=== PATIENT | female | born 1955 | race Native Hawaiian/Other Pacific Islander ===

== ENCOUNTER 2016-07-26 07:04 | Inpatient (IN) | payer OTHER ==
[2016-07-26] MEDS ORDERED: ZOFRAN ODT ONE (07:08)
[2016-07-26] MEDS ORDERED: ZOFRAN ODT PO ONE (07:12)
[2016-07-26 08:29] LABS: BUN/Creatinine Ratio 12.05; Calcium 8.3 mg/dL (8.4-10.2)
[2016-07-26] MEDS ORDERED: NITRO-BID 2% TP ONE (08:32)
[2016-07-26] MEDS ORDERED: LASIX IV ONE (08:32)
[2016-07-26 08:34] LABS: Potassium 4.7 mmol/L (3.6-5.0)
--- NOTE | 2016-07-26 08:41 | XRay Report ---
Single view chest: Compared to 06/26/16. History: Shortness of breath. Findings: Borderline cardiomegaly. Tracheas midline. No consolidation, pneumothorax or pleural effusion. Impression: No cardiopulmonary findings.
[2016-07-26 08:48] LABS: Hemoglobin 8.7 gm/dl (10.1-14.3); Mean Corpuscular HGB Conc 30 % (30-34); Mean Corpuscular Volume 82 fl (79-97); Platelet Count 319 K/mm3 (140-440); Red Blood Count 3.55 M/mm3 (3.65-5.03); Red Cell Distribution Width 16.8 % (13.2-15.2)
[2016-07-26 09:09] LABS: White Blood Count 24.5 K/mm3 (4.5-11.0)
[2016-07-26 09:10] LABS: Creatine Kinase MB 4.3 ng/mL (0.0-4.0)
[2016-07-26 09:10] LABS: Mean Corpuscular Hemoglobin 25 pg (28-32)
[2016-07-26 09:13] LABS: INR 1.19 (0.87-1.13)
[2016-07-26 09:14] LABS: Partial Thromboplastin Time 26.8 Sec. (24.2-36.6)
[2016-07-26] MEDS ORDERED: ROCEPHIN/NS 1 GM/50 ML 1 GM/50 ML BAG IV ONE (09:16)
[2016-07-26] MEDS ORDERED: VANCOMYCIN/NS 1 GM/250 ML 1 GM/250 ML BAG IV ONE (09:16)
[2016-07-26] MEDS ORDERED: NACL 0.9% 500 ML 500 ML IV ONE (09:16)
[2016-07-26 10:06] LABS: Blastocytes % (Manual) 0 %
[2016-07-26 10:07] LABS: Basophils % (Manual) 0 % (0.0-1.8); Eosinophils % (Manual) 0 % (0.0-4.3); Hypochromasia 1+
[2016-07-26 10:08] LABS: Diff Status Complete
--- NOTE | 2016-07-26 10:22 | Emergency Department Report ---
ED Shortness of Breath HPI - General Chief Complaint: Dyspnea/Respdistress Stated Complaint: BETTY Time Seen by Provider: 07/26/16 08:15 Source: patient, family Mode of arrival: Wheelchair Limitations: Language Barrier - History of Present Illness MD Complaint: shortness of breath, chest pain -: Gradual, month(s) Severity: moderate Pain Scale: 4 Quality: dull Consistency: intermittent Improves With: nothing Worsens With: nothing Known History Of: congestive heart failure, diabetes, recurrent pnemonia Context: recent URI Associated Symptoms: chest pain, cough, lower extremity pain (she has a history of a foot ulcer / now with redness and swelling and warmth in right lower extremity), nausea/vomiting Treatments Prior to Arrival: none - Related Data Home Oxygen Therapy: No Home Medications Medication Instructions Recorded Confirmed Last Taken Insulin NPH/Regular [NovoLIN 70/30] 15 unit SQ BIDDIAB 04/27/15 07/26/16 08:00 Metoprolol [Lopressor TAB] 50 mg PO BID 04/27/15 07/26/16 07/25/16 Pentoxifylline [TRENtal] 400 mg PO BID 04/27/15 07/26/16 07/25/16 Pravastatin Sodium [Pravastatin] 20 mg PO QHS 04/27/15 07/26/16 06/24/16 21:00 glipiZIDE [Glucotrol] 10 mg PO BID 04/27/15 07/26/16 07/25/16 Otc Water Pill From [facility] 07/26/16 07/25/16 Medicine Previous Rx's Medication Instructions Recorded Last Taken Type traMADol [Ultram] 50 mg PO Q6HR PRN #30 tablet 07/04/16 Unknown Rx Allergies Allergy/AdvReac Type Severity Reaction Status Date / Time codeine Allergy Hives Verified 07/26/16 07:29 morphine Allergy confusion Verified 07/26/16 07:29 Penicillins Allergy Hives Verified 07/26/16 07:29 ED Review of Systems ROS: Stated complaint: BETTY Other details as noted in HPI Constitutional: denies: chills, fever Eyes: denies: eye pain, eye discharge, vision change ENT: denies: ear pain, throat pain Respiratory: denies: cough, shortness of breath, wheezing Cardiovascular: denies: chest pain, palpitations, dyspnea on exertion, edema, syncope Endocrine: no symptoms reported Gastrointestinal: denies: abdominal pain, nausea, diarrhea Genitourinary: denies: urgency, dysuria, discharge Musculoskeletal: denies: back pain, joint swelling, arthralgia Skin: denies: rash, lesions Neurological: denies: headache, weakness, paresthesias Psychiatric: denies: anxiety, depression Hematological/Lymphatic: denies: easy bleeding, easy bruising ED Past Medical Hx - Past Medical History Hx Hypertension: Yes Hx Congestive Heart Failure: Yes Hx Diabetes: Yes Hx Asthma: Yes Hx COPD: No Additional medical history: HIGH CHOLESTEROL - Social History Smoking Status: Never Smoker Substance Use Type: None - Medications Home Medications: Home Medications Medication Instructions Recorded Confirmed Last Taken Type Insulin NPH/Regular [NovoLIN 70/30] 15 unit SQ BIDDIAB 04/27/15 07/26/16 08:00 History Metoprolol [Lopressor TAB] 50 mg PO BID 04/27/15 07/26/16 07/25/16 History Pentoxifylline [TRENtal] 400 mg PO BID 04/27/15 07/26/16 07/25/16 History Pravastatin Sodium [Pravastatin] 20 mg PO QHS 04/27/15 07/26/16 06/24/16 21:00 History glipiZIDE [Glucotrol] 10 mg PO BID 04/27/15 07/26/16 07/25/16 History traMADol [Ultram] 50 mg PO Q6HR PRN #30 tablet 07/04/16 07/26/16 Unknown Rx Otc Water Pill From [facility] 07/26/16 07/25/16 History Medicine ED Physical Exam - General Limitations: Language Barrier General appearance: alert - Head Head exam: Present: atraumatic - Eye Eye exam: Present: normal appearance - ENT ENT exam: Present: mucous membranes moist - Neck Neck exam: Present: normal inspection - Respiratory Respiratory exam: Present: rales, decreased breath sounds, prolonged expiratory. Absent: respiratory distress - Cardiovascular Cardiovascular Exam: Present: tachycardia, normal heart sounds. Absent: JVD, S3 , S4 - GI/Abdominal GI/Abdominal exam: Present: soft, normal bowel sounds. Absent: distended, tenderness, guarding, hyperactive bowel sounds, hypoactive bowel sounds - Rectal Rectal exam: Present: deferred - Extremities Exam Extremities exam: Present: normal inspection - Back Exam Back exam: Present: normal inspection - Skin Skin exam: Present: warm, rash (erythema / swelling and warmth in right lower extremity) ED Course Vital Signs 07/26/16 07/26/16 07/26/16 07:18 07:42 07:51 Temperature 99.4 F Pulse Rate 102 H 108 H 101 H Respiratory 20 18 12 Rate Blood Pressure 143/67 144/55 Blood Pressure [Left] O2 Sat by Pulse 99 100 98 Oximetry 07/26/16 07/26/16 07/26/16 07:55 07:58 08:00 Temperature 97.9 F Pulse Rate 78 78 105 H Respiratory 18 18 19 Rate Blood Pressure 149/72 Blood Pressure 156/98 [Left] O2 Sat by Pulse 99 99 98 Oximetry 07/26/16 07/26/16 07/26/16 08:11 08:21 08:31 Temperature Pulse Rate 101 H 103 H 102 H Respiratory 16 14 19 Rate Blood Pressure 149/72 149/72 149/72 Blood Pressure [Left] O2 Sat by Pulse 100 100 99 Oximetry 07/26/16 07/26/16 07/26/16 08:41 08:50 08:51 Temperature Pulse Rate 102 H 104 H 102 H Respiratory 21 22 Rate Blood Pressure 149/72 149/72 149/72 Blood Pressure [Left] O2 Sat by Pulse 98 99 Oximetry 07/26/16 07/26/16 07/26/16 09:00 09:11 09:21 Temperature Pulse Rate 100 H 98 H 99 H Respiratory 20 23 19 Rate Blood Pressure 146/125 146/125 146/125 Blood Pressure [Left] O2 Sat by Pulse 98 100 99 Oximetry - Reevaluation(s) Reevaluation #1: 07/26/16 10:18 Will admit the patient , recent admission 3 weeks ago for chest pain, still with mild increase of the troponin but she was evaluated and risk stratified here during the admission. Her presentation is diverse today , she still c/o mild chest pain and cough and diff breathing, but also noticed redness and swelling in her right lower extremity/ hx of ulcer in her foot. Will place her on sepsis protocol/ abx given here./ talked to hospitalist and agree with admission. ED Medical Decision Making - Lab Data Result diagrams: 07/26/16 08:30 07/26/16 08:04 Critical Care Time: Yes Critical care time in (mins) excluding proc time.: 35 Critical care attestation.: If time is entered above; I have spent that time in minutes in the direct care of this critically ill patient, excluding procedure time. ED Disposition Clinical Impression: Sepsis, Acute respiratory failure, Morbid obesity Disposition: OP ADMITTED IP TO THIS HOSP Is pt being admited?: Yes Does the pt Need Aspirin: No Condition: Critical Referrals: PRIMARY CARE, [Primary Care Provider] - 3-5 Days Time of Disposition: 10:24
--- NOTE | 2016-07-26 10:34 | Admit Criteria Form ---
Admission Criteria Documentation: SEPSIS and OTHER FEBRILE ILLNESS, W/O FOCAL INFECTION Clinical Indications for Admission to Inpatient Care ( Place 'X' for any and all applicable criteria): Admission is indicated for ANY ONE of the following (1)(2)(3)(4): [ ] I. Bacteremia [ ]II. Suspected or identified specific infection requiring hospitalization (eg, meningitis, endocarditis) [ ]III. Hemodynamic instability [ ]IV. Altered mental status [ ]V. Failure or unavailability of outpatient antimicrobial treatment [ ]. Hypoxemia [ ]VII. Seizures [ ]VIII. High-risk febrile neutropenia [ ]IX. Need for parenteral antibiotic in patient who is likely to abuse vascular access device (eg, injection drug user) [A](7) [ ]X. Temperature greater than 104.9 degrees F (40.5 degrees C) (oral) [ X]XI. Inpatient admission required rather than observation care because of ANY ONE of the following: []1) Specific infection identified that is too severe for outpatient treatment or observation care trial [ ]2) Metabolic disorder (eg, hypoglycemia, hyperglycemia, metabolic acidosis) that is severe or persistent [ ]3) Temperature greater than 103.1 degrees F (39.5 degrees C) ( oral) that is not responsive to observation care treatment [ ]4) IV fluid to replace significant ongoing (eg, for over 24 hours) losses (> 3 L/m2 per day) [ ]5) Supplemental oxygen or respiratory treatments for over 24 hours that is performable only in acute inpatient setting [ ]6) Parenteral nutrition regimen need that must be implemented on inpatient basis [ ]7) Strict or protective (eg, laminar flow) isolation [X ]8) Other condition, treatment or monitoring requiring inpatient admission Extended stay beyond goal length of stay may be needed for(1)(3) [ ]a) Sepsis or septic shock(22) [ ]b) Positive blood cultures [ ]c) Insufficient oral intake [ ]d) High-risk febrile neutropenia(29)(30) [ ]e) Continued fever and clinical instability [ ]f) Clinically active comorbid illness (e.g,heart failure, renal failure , diabetes) The original [facility] [employer] content created by [employer] has been revised. The portions of the content which have been revised are identified through the use of italic text or in bold, and [employer] has neither reviewed nor approved the modified material. All other unmodified content is copyright [facility]. Please see references footnoted in the original [facility] edition 2016 Admission Criteria Met: Yes
[2016-07-26 10:59] LABS: Bilirubin,Urine NEG (Negative); Blood,Urine NEG (Negative); Ketones,Urine TR mg/dL (Negative); Leukocyte Esterase,Urine NEG (Negative); Mucus,Urine FEW /HPF; Nitrite,Urine NEG (Negative); Urobilinogen,Urine < 2.0 mg/dL (<2.0)
[2016-07-26 11:00] LABS: Protein,Urine >500 mg/dL (Negative)
[2016-07-26] MEDS ORDERED: MILK OF MAGNESIA PO PRN (12:11)
[2016-07-26] MEDS ORDERED: DULCOLAX PR PRN (12:11)
[2016-07-26] MEDS ORDERED: D50W (25GM) IV PRN (12:11)
--- NOTE | 2016-07-26 12:53 | History and Physical Report ---
History of Present Illness Chief complaint: fevers History of present illness: This is a 61-year-old woman with a past medical history of hypertension and CHF EF of 45%, obesity, diabetes, who presents who has a known history of right heel chronic ulcer which if followed by Dr Ann (Podiatry), for which she gets [id number] unna boot, and has been on abx recently, her daughter states that wound was healing and about to scab over. She presents now with 3-4 days of fevers and chills, weakness, lightheadedness, cough productive of frothy thin white sputum, nausea and vomiting, worsening bipedal edema and noticed that her right lower extremities more swollen than normal, tenderness and redness of the lower half of her leg, her daughter even bought her some OTC diuretics yesterday to try to help the swelling, with minimal relief, . She also admits, intermittent dull chest pain, lasting 5-10 minutes, no radiation, no exacerbating or relieving factors, admits 2 pillow orthopnea Past History Past Medical History: diabetes, heart failure (systolic, EF 45), hypertension, renal failure (chronic, BL creatinine of 4), other (obese) Past Surgical History: Social history: no significant social history Family history: no significant family history Medications and Allergies Allergies Allergy/AdvReac Type Severity Reaction Status Date / Time codeine Allergy Hives Verified 07/26/16 07:29 morphine Allergy confusion Verified 07/26/16 07:29 Penicillins Allergy Hives Verified 07/26/16 07:29 Home Medications Medication Instructions Recorded Confirmed Last Taken Type Insulin NPH/Regular [NovoLIN 70/30] 15 unit SQ BIDDIAB 04/27/15 07/26/16 08:00 History Metoprolol [Lopressor TAB] 50 mg PO BID 04/27/15 07/26/16 07/25/16 History Pentoxifylline [TRENtal] 400 mg PO BID 04/27/15 07/26/16 07/25/16 History Pravastatin Sodium [Pravastatin] 20 mg PO QHS 04/27/15 07/26/16 06/24/16 21:00 History glipiZIDE [Glucotrol] 10 mg PO BID 04/27/15 07/26/16 07/25/16 History traMADol [Ultram] 50 mg PO Q6HR PRN #30 tablet 07/04/16 07/26/16 Unknown Rx Otc Water Pill From [facility] 07/26/16 07/25/16 History Medicine Active Meds: Active Medications Acetaminophen (Tylenol) 650 mg PO Q4H PRN PRN Reason: Pain MILD(1-3)/Fever >100.5/MACK Bisacodyl (Dulcolax) 10 mg [place] QDAY PRN PRN Reason: Constipation unrelieved by MOM Dextrose (D50w (25gm)) 50 ml IV PRN PRN PRN Reason: Hypoglycemia Heparin Sodium (Porcine) (Heparin) 5,000 unit SUB-Q Q8HR FELECIA Insulin Aspart (Novolog) 0 units SUB-Q ACHS FELECIA PRN Reason: Protocol Magnesium Hydroxide (Milk Of Magnesia) 30 ml PO Q4H PRN PRN Reason: Constipation Ondansetron HCl (Zofran) 4 mg IV Q8H PRN PRN Reason: N/V unrelieved by Reglan Review of Systems All systems: negative (as states in HPI) Exam - Physical Exam Narrative exam: General: Patient appears well in no distress, obese HEENT: MMM, EOMI cardiac: S1-S2 heard lungs: clear to auscultation, abdomen: soft, nontender, nondistended bowel sounds positive extremities: 2Plus edema in LLE, 4plus Edema in RLE with , erythema half way up the calf, R heel ulcer- will good granulation tissue Skin: no rash Neuro: no focal deficit Psych: appropriate behavior and mood, cognition intact - Constitutional Vitals: Temp Pulse Resp BP Pulse Ox 98.4 F 96 H 16 140/67 100 07/26/16 12:03 07/26/16 12:03 07/26/16 12:03 07/26/16 12:03 07/26/16 12:03 Results - Labs CBC & Chem 7: 07/26/16 08:30 07/26/16 08:04 Labs: Laboratory Last Values WBC 24.5 K/mm3 (4.5-11.0) H 07/26/16 08:30 RBC 3.55 M/mm3 (3.65-5.03) L 07/26/16 08:30 Hgb 8.7 gm/dl (10.1-14.3) L 07/26/16 08:30 Hct 29.0 % (30.3-42.9) L 07/26/16 08:30 MCV 82 fl (79-97) 07/26/16 08:30 MCH 25 pg (28-32) L 07/26/16 08:30 MCHC 30 % (30-34) 07/26/16 08:30 RDW 16.8 % (13.2-15.2) H 07/26/16 08:30 Plt Count 319 K/mm3 (140-440) 07/26/16 08:30 Add Manual Diff Complete 07/26/16 08:30 Total Counted 100 07/26/16 08:30 Seg Neuts % (Manual) 89.0 % (40.0-70.0) H 07/26/16 08:30 Band Neutrophils % 0 % 07/26/16 08:30 Lymphocytes % (Manual) 6.0 % (13.4-35.0) L 07/26/16 08:30 Reactive Lymphs % (Man) 0 % 07/26/16 08:30 Monocytes % (Manual) 5.0 % (0.0-7.3) 07/26/16 08:30 Eosinophils % (Manual) 0 % (0.0-4.3) 07/26/16 08:30 Basophils % (Manual) 0 % (0.0-1.8) 07/26/16 08:30 Metamyelocytes % 0 % 07/26/16 08:30 Myelocytes % 0 % 07/26/16 08:30 Promyelocytes % 0 % 07/26/16 08:30 Blast Cells % 0 % 07/26/16 08:30 Nucleated RBC % Not Reportable 07/26/16 08:30 Seg Neutrophils # Man 21.8 K/mm3 (1.8-7.7) H 07/26/16 08:30 Band Neutrophils # 0.0 K/mm3 07/26/16 08:30 Lymphocytes # (Manual) 1.5 K/mm3 (1.2-5.4) 07/26/16 08:30 Abs React Lymphs (Man) 0.0 K/mm3 07/26/16 08:30 Monocytes # (Manual) 1.2 K/mm3 (0.0-0.8) H 07/26/16 08:30 Eosinophils # (Manual) 0.0 K/mm3 (0.0-0.4) 07/26/16 08:30 Basophils # (Manual) 0.0 K/mm3 (0.0-0.1) 07/26/16 08:30 Metamyelocytes # 0.0 K/mm3 07/26/16 08:30 Myelocytes # 0.0 K/mm3 07/26/16 08:30 Promyelocytes # 0.0 K/mm3 07/26/16 08:30 Blast Cells # 0.0 K/mm3 07/26/16 08:30 WBC Morphology Not Reportable 07/26/16 08:30 Hypersegmented Neuts Not Reportable 07/26/16 08:30 Hyposegmented Neuts Not Reportable 07/26/16 08:30 Hypogranular Neuts Not Reportable 07/26/16 08:30 Smudge Cells Not Reportable 07/26/16 08:30 Toxic Granulation Not Reportable 07/26/16 08:30 Toxic Vacuolation Not Reportable 07/26/16 08:30 Dohle Bodies Not Reportable 07/26/16 08:30 Pelger-Huet Anomaly Not Reportable 07/26/16 08:30 Margot Rods Not Reportable 07/26/16 08:30 Platelet Estimate Appears normal 07/26/16 08:30 Clumped Platelets Not Reportable 07/26/16 08:30 Plt Clumps, EDTA Not Reportable 07/26/16 08:30 Large Platelets Not Reportable 07/26/16 08:30 Giant Platelets Not Reportable 07/26/16 08:30 Platelet Satelliting Not Reportable 07/26/16 08:30 Plt Morphology Comment Not Reportable 07/26/16 08:30 RBC Morphology Not Reportable 07/26/16 08:30 Dimorphic RBCs Not Reportable 07/26/16 08:30 Polychromasia Not Reportable 07/26/16 08:30 Hypochromasia 1+ 07/26/16 08:30 Poikilocytosis Not Reportable 07/26/16 08:30 Anisocytosis Not Reportable 07/26/16 08:30 Microcytosis Not Reportable 07/26/16 08:30 Macrocytosis Not Reportable 07/26/16 08:30 Spherocytes Not Reportable 07/26/16 08:30 Pappenheimer Bodies Not Reportable 07/26/16 08:30 Sickle Cells Not Reportable 07/26/16 08:30 Target Cells Not Reportable 07/26/16 08:30 Tear Drop Cells Not Reportable 07/26/16 08:30 Ovalocytes Not Reportable 07/26/16 08:30 Helmet Cells Not Reportable 07/26/16 08:30 [place] Bodies Not Reportable 07/26/16 08:30 [place] Rings Not Reportable 07/26/16 08:30 [place] Cells Not Reportable 07/26/16 08:30 Bite Cells Not Reportable 07/26/16 08:30 Crenated Cell Not Reportable 07/26/16 08:30 Elliptocytes Not Reportable 07/26/16 08:30 Acanthocytes (Spur) Not Reportable 07/26/16 08:30 Rouleaux Not Reportable 07/26/16 08:30 Hemoglobin C Crystals Not Reportable 07/26/16 08:30 Schistocytes Not Reportable 07/26/16 08:30 Malaria parasites Not Reportable 07/26/16 08:30 Roberto Bodies Not Reportable 07/26/16 08:30 Hem Pathologist Commnt No 07/26/16 08:30 PT 15.0 Sec. (12.2-14.9) H 07/26/16 08:48 INR 1.19 (0.87-1.13) H 07/26/16 08:48 APTT 26.8 Sec. (24.2-36.6) 07/26/16 08:48 Sodium 129 mmol/L (137-145) L 07/26/16 08:04 Potassium 4.7 mmol/L (3.6-5.0) 07/26/16 08:04 Chloride 60.0 mmol/L (98-107) L 07/26/16 08:04 Carbon Dioxide 13 mmol/L (22-30) L 07/26/16 08:04 Anion Gap 9 mmol/L 07/26/16 08:04 BUN 41 mg/dL (7-17) H 07/26/16 08:04 Creatinine 3.4 mg/dL (0.7-1.2) H 07/26/16 08:04 Estimated GFR 14 ml/min 07/26/16 08:04 BUN/Creatinine Ratio 12.05 % 07/26/16 08:04 Glucose 245 mg/dL (65-100) H 07/26/16 08:04 Lactic Acid 1.5 mmol/L (0.7-2.0) 07/26/16 10:21 Calcium 8.3 mg/dL (8.4-10.2) L 07/26/16 08:04 Magnesium 1.9 mg/dL (1.7-2.3) 07/26/16 08:48 Total Creatine Kinase 112 units/L (30-135) 07/26/16 08:48 CK-MB (CK-2) 4.3 ng/mL (0.0-4.0) H 07/26/16 08:48 CK-MB (CK-2) Rel Index 3.8 (0-4) 07/26/16 08:48 Troponin T 0.404 ng/mL (0.00-0.029) H* 07/26/16 08:04 Triglycerides 103 mg/dL (2-149) 07/26/16 08:04 Cholesterol 174 mg/dL (50-199) 07/26/16 08:04 LDL Cholesterol Direct 81 mg/dL (50-130) 07/26/16 08:04 HDL Cholesterol 73 mg/dL (40-59) H 07/26/16 08:04 Cholesterol/HDL Ratio 2.38 % 07/26/16 08:04 Urine Color Yellow (Yellow) 07/26/16 10:16 Urine Turbidity Clear (Clear) 07/26/16 10:16 Urine pH 6.0 (5.0-7.0) 07/26/16 10:16 Ur Specific [place] 1.010 (1.003-1.030) 07/26/16 10:16 Urine Protein >500 mg/dL (Negative) 07/26/16 10:16 Urine Glucose (UA) >=500 mg/dL (Negative) 07/26/16 10:16 Urine Ketones Tr mg/dL (Negative) 07/26/16 10:16 Urine Blood Neg (Negative) 07/26/16 10:16 Urine Nitrite Neg (Negative) 07/26/16 10:16 Urine Bilirubin Neg (Negative) 07/26/16 10:16 Urine Urobilinogen < 2.0 mg/dL (<2.0) 07/26/16 10:16 Ur Leukocyte Esterase Neg (Negative) 07/26/16 10:16 Urine WBC (Auto) 1.0 /HPF (0.0-6.0) 07/26/16 10:16 Urine RBC (Auto) 2.0 /HPF (0.0-6.0) 07/26/16 10:16 Urine Mucus Few /HPF 07/26/16 10:16 - Imaging and Cardiology MRI - head: image reviewed (No DVT in RLE) Assessment and Plan Assessment and plan: 61F w pmh of htn, chf, obesity, DM, Chronic R heel ulcer who presented with fever, weakness, fatigue and increase RLE swelling, pain and erythema 1. Sepsis 2/2 RLE cellulitis continue sepsis pathway, continue abx, fup blood cx 2. Anemia of CD stable, monitor 3. CKD stage 4 stable, creatinine at baseline, avoid nephrotoxic agents 4. Metabolic acidosis likely 2/2 sepsis, rx underlying cause 5. NSTEMI -CAD , she was recently admitted and seen by cardiology who had recommended only medical management (last month, she had Echo which showed regional wall motion abnormalities, but has not had recent stress test or cath) -consult cardiology team 6. Acute exacerbation of systolic CHF IV lasix, optimize meds 7. DM continue basal and bolus insulins, and SSI, FS glucose qac and hs 8. Hyponatremia likely 2/2 to fluid overload, should improve with diuresis Plan of care discussed with patient/family: Yes
[2016-07-26] MEDS ORDERED: ASPIRIN ONE (13:02)
[2016-07-26] MEDS ORDERED: ASPIRIN PO ONE (13:04)
[2016-07-26] MEDS ORDERED: LASIX IV SCH ×2 (14:00)
[2016-07-26] MEDS: HEPARIN SUB-Q SCH ×2 (16:10→21:15)
[2016-07-26] MEDS: NOVOLOG SUB-Q SCH (18:03)
--- NOTE | 2016-07-26 18:29 | Consultation ---
History of Present Illness - Reason for Consult Consult date: 07/26/16 acute renal failure, metabolic acidosis - History of Present Illness History obtained from records due to language barrier. Mrs Wade is a 61yo with CKD and chronic right heel ulcer followed by podiatry who presents to the ED with a 3-4 day history of fever, chills. In addition, patient w/ hx of nausea and vomiting. Daughter reportedly noticed that patient's legs were more edematous than usual, so she obtained OTC diuretics. Past History Past Medical History: diabetes, heart failure (systolic, EF 45), hypertension, renal failure (chronic, BL creatinine of 4), other (obese) Past Surgical History: Social history: no significant social history Family history: no significant family history Medications and Allergies Allergies Allergy/AdvReac Type Severity Reaction Status Date / Time codeine Allergy Hives Verified 07/26/16 07:29 morphine Allergy confusion Verified 07/26/16 07:29 Penicillins Allergy Hives Verified 07/26/16 07:29 Home Medications Medication Instructions Recorded Confirmed Last Taken Type Insulin NPH/Regular [NovoLIN 70/30] 15 unit SQ BIDDIAB 04/27/15 07/26/16 08:00 History Metoprolol [Lopressor TAB] 50 mg PO BID 04/27/15 07/26/16 07/25/16 History Pentoxifylline [TRENtal] 400 mg PO BID 04/27/15 07/26/16 07/25/16 History Pravastatin Sodium [Pravastatin] 20 mg PO QHS 04/27/15 07/26/16 06/24/16 21:00 History glipiZIDE [Glucotrol] 10 mg PO BID 04/27/15 07/26/16 07/25/16 History traMADol [Ultram] 50 mg PO Q6HR PRN #30 tablet 07/04/16 07/26/16 Unknown Rx Otc Water Pill From [facility] 07/26/16 07/25/16 History Medicine Active Meds: Active Medications Acetaminophen (Tylenol) 650 mg PO Q4H PRN PRN Reason: Pain MILD(1-3)/Fever >100.5/MACK Bisacodyl (Dulcolax) 10 mg [place] QDAY PRN PRN Reason: Constipation unrelieved by MOM Dextrose (D50w (25gm)) 50 ml IV PRN PRN PRN Reason: Hypoglycemia Furosemide (Lasix) 60 mg IV Q12H [facility] Last Admin: 07/26/16 16:11 Dose: 60 mg Heparin Sodium (Porcine) (Heparin) 5,000 unit SUB-Q Q8HR [facility] Last Admin: 07/26/16 16:10 Dose: 5,000 unit Ceftriaxone Sodium (Rocephin/Ns 1 Gm/50 Ml) 1 gm in 50 mls @ 100 mls/hr IV Q24H FELECIA PRN Reason: Protocol Insulin Aspart (Novolog) 0 units SUB-Q ACHS FELECIA PRN Reason: Protocol Last Admin: 07/26/16 18:03 Dose: 3 units Insulin Human Isoph/Insulin Regular (Novolin 70/30) 15 unit SUB-Q BIDDIAB [facility] Last Admin: 07/26/16 18:04 Dose: 15 unit Magnesium Hydroxide (Milk Of Magnesia) 30 ml PO Q4H PRN PRN Reason: Constipation Metoprolol Tartrate (Lopressor) 50 mg PO BID FELECIA Ondansetron HCl (Zofran) 4 mg IV Q8H PRN PRN Reason: N/V unrelieved by Reglan Pentoxifylline (Trental) 400 mg PO BID FELECIA Simvastatin (Zocor) 10 mg PO QHS FELECIA Tramadol HCl (Ultram) 50 mg PO Q6HR PRN PRN Reason: Pain Review of Systems ROS unobtainable: due to mental status (language barrier) Exam - Vital Signs Vital signs: Vital Signs Temp Pulse Resp BP Pulse Ox 99.4 F 102 H 20 143/67 99 07/26/16 07:18 07/26/16 07:18 07/26/16 07:18 07/26/16 07:18 07/26/16 07:18 - General Appearance General appearance: well-developed, well-nourished, obese, other (breathing comfortably on room air) EENT: ATNC Respiratory: Clear to Ascultation Heart: regular, S1S2 Gastrointestinal: Present: normal, obese. Absent: tenderness, distended Integumentary: other (right heel ulcer) Musculoskeletal: Present: other (chronic venous stasis changes; trace edema) Psychiatric: cooperative Results - Lab Results 07/27/16 05:08 07/27/16 05:08 Most recent lab results Calcium 8.3 mg/dL (8.4-10.2) L 07/26/16 08:04 Magnesium 1.9 mg/dL (1.7-2.3) 07/26/16 08:48 Assessment and Plan Assessment: * Nonoliguric acute kidney injury secondary to prerenal azotemia/volume depletion (N/V, taking OTC diuretics) vs ATN on chronic kidney disease SCr 4.8mg/dL - Jun 2016 * Sepsis * Diabetic right heel ulcer * Metabolic acidosis * Nausea/vomiting * Hyponatremia * Dyspnea - ?secondary to respiratory compensation for metabolic acidosis; CXR clear * Type II DM * Hypertension * Hx of elevated troponin - TTE (Jun 2016): preserved LVEF; regional wall motion abnormalities at the apex, suggesting the presence of underlying coronary artery disease. Plan: * Will hold diuresis for now - patient does not appear to be in fluid overload * Start bicarb gtt in light of metabolic acidosis * Abx per primary team * Avoid potential nephrotoxins * Dose medications for renal function * Strict I/O - eubanks catheter in place
[2016-07-26] MEDS ORDERED: SODIUM BICARBONATE 150 MEQ in D5W 1,000 ML IV SCH (20:00)
[2016-07-26] MEDS: TYLENOL PO PRN (21:14)
[2016-07-26] MEDS: ZOCOR PO SCH (21:15)
[2016-07-26] MEDS: TRENTAL PO SCH (21:15)
[2016-07-26] MEDS ORDERED: NON-FORMULARY (Pravastatin Sodium [Pravastatin] 20 MG) PO SCH (22:00)
[2016-07-27] MEDS: LOPRESSOR PO SCH ×3 (00:09→23:00)
[2016-07-27] MEDS: NOVOLOG SUB-Q SCH ×5 (00:10→23:25)
[2016-07-27 05:34] LABS: Basophils % (Auto) 0.2 % (0.0-1.8); Eosinophils % (Auto) 0.4 % (0.0-4.3); Hemoglobin 7.2 gm/dl (10.1-14.3); Mean Corpuscular HGB Conc 31 % (30-34); Mean Corpuscular Volume 80 fl (79-97); Platelet Count 251 K/mm3 (140-440); Red Blood Count 2.85 M/mm3 (3.65-5.03); Red Cell Distribution Width 16.4 % (13.2-15.2); White Blood Count 15.8 K/mm3 (4.5-11.0)
[2016-07-27] MEDS: TYLENOL PO PRN (05:38)
[2016-07-27] MEDS: HEPARIN SUB-Q SCH ×3 (05:39→23:26)
[2016-07-27] MEDS: ZOFRAN IV PRN ×3 (05:45→23:34)
[2016-07-27 05:48] LABS: BUN/Creatinine Ratio 13.24; Potassium 3.9 mmol/L (3.6-5.0)
[2016-07-27 05:52] LABS: Mean Corpuscular Hemoglobin 25 pg (28-32)
--- NOTE | 2016-07-27 08:56 | Progress Note ---
Assessment and Plan Assessment: * Nonoliguric acute kidney injury secondary to prerenal azotemia/volume depletion (N/V, taking OTC diuretics) vs ATN on chronic kidney disease SCr 4.8mg/dL - Jun 2016 * Sepsis * Diabetic right heel ulcer * Metabolic acidosis - improved * Nausea/vomiting * Hyponatremia - improved, contacted lab Na 133 today * Dyspnea likely secondary to respiratory compensation for metabolic acidosis; CXR clear * Type II DM * Hypertension * Hx of elevated troponin - TTE (Jun 2016): preserved LVEF; regional wall motion abnormalities at the apex, suggesting the presence of underlying coronary artery disease. Plan: * Recommend continue IVF * Hold diuretics * Follow up on pending lytes * Abx per primary team - WBC trending down * Avoid potential nephrotoxins * Dose medications for renal function * Strict I/O - eubanks catheter in place * Son at bedside (not present yesterday) - identifies patient's building energy consultant as Dr. Hamilton and is scheduled to see him in the office next week; have discussed with hospitalist who will change consult. Subjective Date of service: 07/27/16 Interval history: Patient c/o nausea, dry heaves. She denies SOB or difficulty breathing. Objective - Vital Signs Vital signs: Vital Signs - 12hr 07/26/16 07/26/16 07/27/16 21:14 22:00 00:00 Temperature 98.3 F Pulse Rate Pulse Rate [ 80 Left Radial] Respiratory 18 18 Rate Respiratory 18 Rate [Chest] Blood Pressure Blood Pressure 103/56 [Left Arm] O2 Sat by Pulse Oximetry 07/27/16 07/27/16 00:09 08:00 Temperature 98.2 F Pulse Rate 83 Pulse Rate [ 80 Left Radial] Respiratory 18 Rate Respiratory Rate [Chest] Blood Pressure 101/54 Blood Pressure 106/58 [Left Arm] O2 Sat by Pulse 98 Oximetry - General Appearance General appearance: well-developed, well-nourished, obese EENT: ATNC Respiratory: Present: Clear to Ascultation Cardiology: regular, S1S2 Gastrointestinal: normal, no tenderness, no distended, obese Integumentary: other (right heel ulcer) Musculoskeletal: other (no edema) Psychiatric: cooperative - Lab 07/27/16 05:08 07/27/16 05:08 Most recent lab results Calcium 8.0 mg/dL (8.4-10.2) L 07/27/16 05:08 Magnesium 1.9 mg/dL (1.7-2.3) 07/26/16 08:48
--- NOTE | 2016-07-27 09:26 | Consultation ---
History of Present Illness Consult date: 07/27/16 Consult reason: elevated troponin History of present illness: This patient's a 61-year-old woman with multiple medical problems including diabetes, hypertension, peripheral vascular disease, chronic renal failure, chronic anemia and a nonhealing right foot ulcer. She is admitted to the hospital at this time with chest pain, shortness of breath and nausea and vomiting. A chest x-ray done in the emergency room reports no acute cardiopulmonary process. EKG not available on chart for review. Cardiac enzymes are normal with a CK-MB of 4.3 and CK-MB ratio of 3.8. Troponin level of 0.40 but this is also in the setting of chronic renal failure with a current creatinine of 3.4. Of note, patient was admitted to this hospital less than a month ago with similar symptoms. An echocardiogram done at that time revealed an overall preserved left ventricle systolic function, but there are regional wall motion abnormalities at the apex, suggesting the presence of underlying coronary artery disease. Patient was considered not a candidate for aggressive invasive cardiac evaluation due to multiple comorbidities including renal failure and severe anemia. Medical therapy recommended for underlying coronary artery disease. Past History Past Medical History: diabetes, heart failure (systolic, EF 45), hypertension, renal failure (chronic, BL creatinine of 4), other (obese) Past Surgical History: Social history: no significant social history Family history: no significant family history Medications and Allergies Allergies Allergy/AdvReac Type Severity Reaction Status Date / Time codeine Allergy Hives Verified 07/26/16 07:29 morphine Allergy confusion Verified 07/26/16 07:29 Penicillins Allergy Hives Verified 07/26/16 07:29 Home Medications Medication Instructions Recorded Confirmed Last Taken Type Insulin NPH/Regular [NovoLIN 70/30] 15 unit SQ BIDDIAB 04/27/15 07/26/16 08:00 History Metoprolol [Lopressor TAB] 50 mg PO BID 04/27/15 07/26/16 07/25/16 History Pentoxifylline [TRENtal] 400 mg PO BID 04/27/15 07/26/16 07/25/16 History Pravastatin Sodium [Pravastatin] 20 mg PO QHS 04/27/15 07/26/16 06/24/16 21:00 History glipiZIDE [Glucotrol] 10 mg PO BID 12/01/0207/26/16 07/25/16 History traMADol [Ultram] 50 mg PO Q6HR PRN #30 tablet 07/04/16 07/26/16 Unknown Rx Otc Water Pill From [facility] 07/26/16 07/25/16 History Medicine Active Meds: Active Medications Acetaminophen (Tylenol) 650 mg PO Q4H PRN PRN Reason: Pain MILD(1-3)/Fever >100.5/MACK Last Admin: 07/26/16 21:14 Dose: 650 mg Bisacodyl (Dulcolax) 10 mg LA QDAY PRN PRN Reason: Constipation unrelieved by MOM Dextrose (D50w (25gm)) 50 ml IV PRN PRN PRN Reason: Hypoglycemia Heparin Sodium (Porcine) (Heparin) 5,000 unit SUB-Q Q8HR [facility] Last Admin: 07/27/16 05:39 Dose: 5,000 unit Ceftriaxone Sodium (Rocephin/Ns 1 Gm/50 Ml) 1 gm in 50 mls @ 100 mls/hr IV Q24H [facility] PRN Reason: Protocol Sodium Bicarbonate 150 meq/ (Dextrose) 1,150 mls @ 75 mls/hr IV DIRECT [facility] Insulin Aspart (Novolog) 0 units SUB-Q ACHS [facility] PRN Reason: Protocol Last Admin: 07/27/16 07:37 Dose: Not Given Insulin Human Isoph/Insulin Regular (Novolin 70/30) 15 unit SUB-Q BIDDIAB [facility] Last Admin: 07/26/16 18:04 Dose: 15 unit Magnesium Hydroxide (Milk Of Magnesia) 30 ml PO Q4H PRN PRN Reason: Constipation Metoprolol Tartrate (Lopressor) 50 mg PO BID [facility] Last Admin: 07/27/16 00:09 Dose: Not Given Ondansetron HCl (Zofran) 4 mg IV Q8H PRN PRN Reason: N/V unrelieved by Reglan Last Admin: 07/27/16 05:45 Dose: 4 mg Pentoxifylline (Trental) 400 mg PO BID [facility] Last Admin: 07/26/16 21:15 Dose: 400 mg Simvastatin (Zocor) 10 mg PO QHS [facility] Last Admin: 07/26/16 21:15 Dose: 10 mg Tramadol HCl (Ultram) 50 mg PO Q6HR PRN PRN Reason: Pain Physical Examination Vital Signs Temp Pulse Resp BP Pulse Ox 99.4 F 102 H 20 143/67 99 07/26/16 07:18 07/26/16 07:18 07/26/16 07:18 07/26/16 07:18 07/26/16 07:18 General appearance: no acute distress Cardiac: Positive: Reg Rate and Rhythm Results 07/27/16 05:08 07/27/16 05:08 CBC 07/27/16 Range/Units 05:08 WBC 15.8 H (4.5-11.0) K/mm3 RBC 2.85 L (3.65-5.03) M/mm3 Hgb 7.2 L (10.1-14.3) gm/dl Hct 23.0 L D (30.3-42.9) % Plt Count 251 (140-440) K/mm3 Lymph # 1.6 (1.2-5.4) K/mm3 [place] # 1.4 H (0.0-0.8) K/mm3 Eos # 0.1 (0.0-0.4) K/mm3 Baso # 0.0 (0.0-0.1) K/mm3 Comprehensive Metabolic Panel 07/27/16 Range/Units 05:08 Carbon Dioxide 23 D (22-30) mmol/L BUN 49 H (7-17) mg/dL Creatinine 3.7 H (0.7-1.2) mg/dL Glucose 74 (65-100) mg/dL Calcium 8.0 L (8.4-10.2) mg/dL Assessment and Plan Chronic renal failure Volume depletion Nausea vomiting Hyponatremia Chest pain Patient is considered not be a candidate for aggressive and invasive cardiac evaluation due to multiple comorbidities including renal failure and anemia. Severe Anemia Diabetes Hypertension Hyperlipidemia Diabetic Rt heel ulcer Elevated troponin, chronic An echocardiogram done 06/2016 reports a preserved left ventricle systolic function, but there are regional wall motion abnormalities at the apex, suggesting the presence of underlying coronary artery disease. Recommend: Medical therapy for underlying coronary disease.
[2016-07-27] MEDS: TRENTAL PO SCH ×2 (10:47→23:26)
[2016-07-27] MEDS: ROCEPHIN/NS 1 GM/50 ML 1 GM/50 ML BAG IV SCH (11:02)
--- NOTE | 2016-07-27 16:21 | Progress Note ---
Assessment and Plan Assessment and plan: 61F w pmh of htn, chf, obesity, DM, Chronic R heel ulcer who presented with fever, weakness, fatigue, generalized edema and increase RLE swelling, pain and erythema 1. Sepsis 2/2 RLE cellulitis continue sepsis pathway, continue abx, fup blood cx Obtain MR of RLE to r/o OM continue wound care, fup with Dr Ann-podiatry upon dc 2. Anemia of CD if continues to trend downwards, will consider transfuion 3. CKD stage 4 stable, creatinine at baseline, avoid nephrotoxic agents Nephrology input appreciated 4. Metabolic acidosis likely 2/2 sepsis and CKD continue bicarb drip 5. NSTEMI -CAD , she was recently admitted and seen by cardiology who had recommended only medical management (last month, she had Echo which showed regional wall motion abnormalities, but has not had recent stress test or cath) -cardiology input appreciated, continue medical management 6. Acute exacerbation of systolic CHF fluid overload has resolved after geting diuretics, diuretics have now been dc, optimize meds 7. DM continue basal and bolus insulins, and SSI, FS glucose qac and hs 8. Hyponatremia likely 2/2 to fluid overload, has improved with diuresis History Interval history: SOB is resolves, and LE edema is most resolved. RLE is no longer red or swollen , but she is c/o of a deep pain that appears to be under her heel ulcer Hospitalist Physical - Physical exam Narrative exam: General: Patient appears well in no distress, obese HEENT: MMM, EOMI cardiac: S1-S2 heard lungs: clear to auscultation, abdomen: soft, nontender, nondistended bowel sounds positive extremities: Erythema and edema or RLE is mostly resolve, R heel ulcer- will good granulation tissue, no odor or drainage LLE has 1 plus edema- interval improvement Skin: no rash Neuro: no focal deficit Psych: appropriate behavior and mood, cognition intact - Constitutional Vitals: Temp Pulse Resp BP Pulse Ox 98.8 F 90 18 130/62 98 07/27/16 16:00 07/27/16 16:00 07/27/16 16:00 07/27/16 16:00 07/27/16 08:00 General appearance: Present: no acute distress Results - Labs CBC & Chem 7: 07/28/16 08:12 07/27/16 05:08 Labs: Laboratory Last Values WBC 15.8 K/mm3 (4.5-11.0) H 07/27/16 05:08 RBC 2.85 M/mm3 (3.65-5.03) L 07/27/16 05:08 Hgb 7.2 gm/dl (10.1-14.3) L 07/27/16 05:08 Hct 23.0 % (30.3-42.9) L D 07/27/16 05:08 MCV 80 fl (79-97) 07/27/16 05:08 MCH 25 pg (28-32) L 07/27/16 05:08 MCHC 31 % (30-34) 07/27/16 05:08 RDW 16.4 % (13.2-15.2) H 07/27/16 05:08 Plt Count 251 K/mm3 (140-440) 07/27/16 05:08 Lymph % (Auto) 10.4 % (13.4-35.0) L 07/27/16 05:08 [place] % (Auto) 9.0 % (0.0-7.3) H 07/27/16 05:08 Eos % (Auto) 0.4 % (0.0-4.3) 07/27/16 05:08 Baso % (Auto) 0.2 % (0.0-1.8) 07/27/16 05:08 Lymph # 1.6 K/mm3 (1.2-5.4) 07/27/16 05:08 [place] # 1.4 K/mm3 (0.0-0.8) H 07/27/16 05:08 Eos # 0.1 K/mm3 (0.0-0.4) 07/27/16 05:08 Baso # 0.0 K/mm3 (0.0-0.1) 07/27/16 05:08 Add Manual Diff Complete 07/26/16 08:30 Total Counted 100 07/26/16 08:30 Seg Neutrophils % 80.0 % (40.0-70.0) H 07/27/16 05:08 Seg Neuts % (Manual) 89.0 % (40.0-70.0) H 07/26/16 08:30 Band Neutrophils % 0 % 07/26/16 08:30 Lymphocytes % (Manual) 6.0 % (13.4-35.0) L 07/26/16 08:30 Reactive Lymphs % (Man) 0 % 07/26/16 08:30 Monocytes % (Manual) 5.0 % (0.0-7.3) 07/26/16 08:30 Eosinophils % (Manual) 0 % (0.0-4.3) 07/26/16 08:30 Basophils % (Manual) 0 % (0.0-1.8) 07/26/16 08:30 Metamyelocytes % 0 % 07/26/16 08:30 Myelocytes % 0 % 07/26/16 08:30 Promyelocytes % 0 % 07/26/16 08:30 Blast Cells % 0 % 07/26/16 08:30 Nucleated RBC % Not Reportable 07/26/16 08:30 Seg Neutrophils # 12.7 K/mm3 (1.8-7.7) H 07/27/16 05:08 Seg Neutrophils # Man 21.8 K/mm3 (1.8-7.7) H 07/26/16 08:30 Band Neutrophils # 0.0 K/mm3 07/26/16 08:30 Lymphocytes # (Manual) 1.5 K/mm3 (1.2-5.4) 07/26/16 08:30 Abs React Lymphs (Man) 0.0 K/mm3 07/26/16 08:30 Monocytes # (Manual) 1.2 K/mm3 (0.0-0.8) H 07/26/16 08:30 Eosinophils # (Manual) 0.0 K/mm3 (0.0-0.4) 07/26/16 08:30 Basophils # (Manual) 0.0 K/mm3 (0.0-0.1) 07/26/16 08:30 Metamyelocytes # 0.0 K/mm3 07/26/16 08:30 Myelocytes # 0.0 K/mm3 07/26/16 08:30 Promyelocytes # 0.0 K/mm3 07/26/16 08:30 Blast Cells # 0.0 K/mm3 07/26/16 08:30 WBC Morphology Not Reportable 07/26/16 08:30 Hypersegmented Neuts Not Reportable 07/26/16 08:30 Hyposegmented Neuts Not Reportable 07/26/16 08:30 Hypogranular Neuts Not Reportable 07/26/16 08:30 Smudge Cells Not Reportable 07/26/16 08:30 Toxic Granulation Not Reportable 07/26/16 08:30 Toxic Vacuolation Not Reportable 07/26/16 08:30 Dohle Bodies Not Reportable 07/26/16 08:30 Pelger-Huet Anomaly Not Reportable 07/26/16 08:30 Margot Rods Not Reportable 07/26/16 08:30 Platelet Estimate Appears normal 07/26/16 08:30 Clumped Platelets Not Reportable 07/26/16 08:30 Plt Clumps, EDTA Not Reportable 07/26/16 08:30 Large Platelets Not Reportable 07/26/16 08:30 Giant Platelets Not Reportable 07/26/16 08:30 Platelet Satelliting Not Reportable 07/26/16 08:30 Plt Morphology Comment Not Reportable 07/26/16 08:30 RBC Morphology Not Reportable 07/26/16 08:30 Dimorphic RBCs Not Reportable 07/26/16 08:30 Polychromasia Not Reportable 07/26/16 08:30 Hypochromasia 1+ 07/26/16 08:30 Poikilocytosis Not Reportable 07/26/16 08:30 Anisocytosis Not Reportable 07/26/16 08:30 Microcytosis Not Reportable 07/26/16 08:30 Macrocytosis Not Reportable 07/26/16 08:30 Spherocytes Not Reportable 07/26/16 08:30 Pappenheimer Bodies Not Reportable 07/26/16 08:30 Sickle Cells Not Reportable 07/26/16 08:30 Target Cells Not Reportable 07/26/16 08:30 Tear Drop Cells Not Reportable 07/26/16 08:30 Ovalocytes Not Reportable 07/26/16 08:30 Helmet Cells Not Reportable 07/26/16 08:[address] [place] Bodies Not Reportable 07/26/16 08:30 [place] Rings Not Reportable 07/26/16 08:30 Jose Cells Not Reportable 07/26/16 08:30 Bite Cells Not Reportable 07/26/16 08:30 Crenated Cell Not Reportable 07/26/16 08:30 Elliptocytes Not Reportable 07/26/16 08:30 Acanthocytes (Spur) Not Reportable 07/26/16 08:30 Rouleaux Not Reportable 07/26/16 08:30 Hemoglobin C Crystals Not Reportable 07/26/16 08:30 Schistocytes Not Reportable 07/26/16 08:30 Malaria parasites Not Reportable 07/26/16 08:30 ESR > 140.0 mm/Hr (0-20) 07/26/16 15:30 Roberto Bodies Not Reportable 07/26/16 08:30 Hem Pathologist Commnt No 07/26/16 08:30 PT 15.0 Sec. (12.2-14.9) H 07/26/16 08:48 INR 1.19 (0.87-1.13) H 07/26/16 08:48 APTT 26.8 Sec. (24.2-36.6) 07/26/16 08:48 Sodium 129 mmol/L (137-145) L 07/26/16 08:04 Potassium 4.7 mmol/L (3.6-5.0) 07/26/16 08:04 Chloride 60.0 mmol/L (98-107) L 07/26/16 08:04 Carbon Dioxide 23 mmol/L (22-30) D 07/27/16 05:08 Anion Gap 16 mmol/L 07/27/16 05:08 BUN 49 mg/dL (7-17) H 07/27/16 05:08 Creatinine 3.7 mg/dL (0.7-1.2) H 07/27/16 05:08 Estimated GFR 12 ml/min 07/27/16 05:08 BUN/Creatinine Ratio 13.24 % 07/27/16 05:08 Glucose 74 mg/dL (65-100) 07/27/16 05:08 POC Glucose 125 (70-105) H 07/27/16 12:08 Lactic Acid 1.6 mmol/L (0.7-2.0) 07/26/16 13:25 Calcium 8.0 mg/dL (8.4-10.2) L 07/27/16 05:08 Magnesium 1.9 mg/dL (1.7-2.3) 07/26/16 08:48 Total Creatine Kinase 112 units/L (30-135) 07/26/16 08:48 CK-MB (CK-2) 4.3 ng/mL (0.0-4.0) H 07/26/16 08:48 CK-MB (CK-2) Rel Index 3.8 (0-4) 07/26/16 08:48 Troponin T 0.404 ng/mL (0.00-0.029) H* 07/26/16 08:04 C-Reactive Protein 28.60 mg/dL (0.00-1.30) H 07/26/16 08:48 Triglycerides 103 mg/dL (2-149) 07/26/16 08:04 Cholesterol 174 mg/dL (50-199) 07/26/16 08:04 LDL Cholesterol Direct 81 mg/dL (50-130) 07/26/16 08:04 HDL Cholesterol 73 mg/dL (40-59) H 07/26/16 08:04 Cholesterol/HDL Ratio 2.38 % 07/26/16 08:04 Urine Color Yellow (Yellow) 07/26/16 10:16 Urine Turbidity Clear (Clear) 07/26/16 10:16 Urine pH 6.0 (5.0-7.0) 07/26/16 10:16 Ur Specific [place] 1.010 (1.003-1.030) 07/26/16 10:16 Urine Protein >500 mg/dL (Negative) 07/26/16 10:16 Urine Glucose (UA) >=500 mg/dL (Negative) 07/26/16 10:16 Urine Ketones Tr mg/dL (Negative) 07/26/16 10:16 Urine Blood Neg (Negative) 07/26/16 10:16 Urine Nitrite Neg (Negative) 07/26/16 10:16 Urine Bilirubin Neg (Negative) 07/26/16 10:16 Urine Urobilinogen < 2.0 mg/dL (<2.0) 07/26/16 10:16 Ur Leukocyte Esterase Neg (Negative) 07/26/16 10:16 Urine WBC (Auto) 1.0 /HPF (0.0-6.0) 07/26/16 10:16 Urine RBC (Auto) 2.0 /HPF (0.0-6.0) 07/26/16 10:16 Urine Mucus Few /HPF 07/26/16 10:16
--- NOTE | 2016-07-27 17:33 | Consultation ---
History of Present Illness - Reason for Consult Consult date: 07/27/16 acute renal failure, chronic renal failure, hyponatremia, metabolic acidosis - History of Present Illness This is a 61 year old female with PMH of chronic kidney disease stage 5, hypertension, diabetes mellitus type 2 insulin dependent, and congestive heart failure (EF 45%) who presented to [facility] with complaints of fever, chills, nausea , vomiting, fatigue, chest pain, productive cough with white sputum, bilateral lower extremity edema, chronic right heel ulcer (followed by Dr Ann- Decorating Inspector), and pain to right lower extremity. Apparently, patient's daughter purchased OTC diuretics for management of bilateral lower extremity edema prior to admission. On admission, SCr level was 3.4, increased to 3.7 today. Patient was seen by our nephrology service ([facility]) during previous hospitalization at [facility] last month, labs from 06/26 to 07/04 ranged from 3.4 to 4.8 , with highest SCr level of 5.4 on 06/29/16. Renal ultrasound last month showed no hydronephrosis. Patient had Castillo Catheter placed during this admission. Patient speaks Nigerien only, son at bedside who assisted with history of recent events leading to hospitalization. We were consulted to evaluate this patient who has acute on chronic kidney disease versus progression of chronic kidney disease. Past History Past Medical History: diabetes, heart failure (systolic, EF 45), hypertension, renal failure (chronic, BL creatinine of 4), other (obese) Past Surgical History: Social history: no significant social history Family history: no significant family history Medications and Allergies Allergies Allergy/AdvReac Type Severity Reaction Status Date / Time codeine Allergy Hives Verified 07/26/16 07:29 morphine Allergy confusion Verified 07/26/16 07:29 Penicillins Allergy Hives Verified 07/26/16 07:29 Home Medications Medication Instructions Recorded Confirmed Last Taken Type Insulin NPH/Regular [NovoLIN 70/30] 15 unit SQ BIDDIAB 04/27/15 07/26/16 08:00 History Metoprolol [Lopressor TAB] 50 mg PO BID 04/27/15 07/26/16 07/25/16 History Pentoxifylline [TRENtal] 400 mg PO BID 04/27/15 07/26/16 07/25/16 History Pravastatin Sodium [Pravastatin] 20 mg PO QHS 04/27/15 07/26/16 06/24/16 21:00 History glipiZIDE [Glucotrol] 10 mg PO BID 04/27/15 07/26/16 07/25/16 History traMADol [Ultram] 50 mg PO Q6HR PRN #30 tablet 07/04/16 07/26/16 Unknown Rx Otc Water Pill From [facility] 07/26/16 07/25/16 History Medicine Active Meds: Active Medications Acetaminophen (Tylenol) 650 mg PO Q4H PRN PRN Reason: Pain MILD(1-3)/Fever >100.5/MACK Last Admin: 07/26/16 21:14 Dose: 650 mg Bisacodyl (Dulcolax) 10 mg DC QDAY PRN PRN Reason: Constipation unrelieved by MOM Dextrose (D50w (25gm)) 50 ml IV PRN PRN PRN Reason: Hypoglycemia Heparin Sodium (Porcine) (Heparin) 5,000 unit SUB-Q Q8HR [facility] Last Admin: 07/27/16 16:04 Dose: 5,000 unit Ceftriaxone Sodium (Rocephin/Ns 1 Gm/50 Ml) 1 gm in 50 mls @ 100 mls/hr IV Q24H [facility] PRN Reason: Protocol Last Admin: 07/27/16 11:02 Dose: 100 mls/hr Sodium Bicarbonate 150 meq/ (Dextrose) 1,150 mls @ 75 mls/hr IV DIRECT [facility] Insulin Aspart (Novolog) 0 units SUB-Q ACHS [facility] PRN Reason: Protocol Last Admin: 07/27/16 14:57 Dose: Not Given Insulin Human Isoph/Insulin Regular (Novolin 70/30) 15 unit SUB-Q BIDDIAB [facility] Last Admin: 07/27/16 10:21 Dose: Not Given Magnesium Hydroxide (Milk Of Magnesia) 30 ml PO Q4H PRN PRN Reason: Constipation Metoprolol Tartrate (Lopressor) 50 mg PO BID [facility] Last Admin: 07/27/16 10:47 Dose: Not Given Ondansetron HCl (Zofran) 4 mg IV Q8H PRN PRN Reason: N/V unrelieved by Reglan Last Admin: 07/27/16 15:59 Dose: 4 mg Pentoxifylline (Trental) 400 mg PO BID [facility] Last Admin: 07/27/16 10:47 Dose: Not Given Simvastatin (Zocor) 10 mg PO QHS [facility] Last Admin: 07/26/16 21:15 Dose: 10 mg Tramadol HCl (Ultram) 50 mg PO Q6HR PRN PRN Reason: Pain Review of Systems Constitutional: fever, chills, fatigue, weakness Ears, nose, mouth and throat: no epistaxis Cardiovascular: chest pain, leg edema, no shortness of breath, no dyspnea on exertion Respiratory: cough with sputum, dyspnea on exertion, no hemoptysis, no shortness of breath Gastrointestinal: nausea, vomiting, no abdominal pain, no diarrhea, no constipation, no hematemesis, no melena Genitourinary Female: no dysuria, no hematuria Musculoskeletal: muscle weakness Integumentary: wounds (chronic right heel ulcer) Neurological: no seizures Psychiatric: no anxiety, no depression Endocrine: fatigue (PATIENT SPEAKS CROATIAN ONLY, SON AT BEDSIDE ASSISTED WITH HISTORY OF RECENT EVENTS) Exam - Vital Signs Vital signs: Vital Signs Temp Pulse Resp BP Pulse Ox 99.4 F 102 H 20 143/67 99 07/26/16 07:18 07/26/16 07:18 07/26/16 07:18 07/26/16 07:18 07/26/16 07:18 - General Appearance General appearance: well-nourished (no acute distress, denies shortness of breath) EENT: ATNC Neck: Present: neck supple Respiratory: Other (Lung sounds decreased bilaterally, unlabored) Heart: regular, S1S2 Gastrointestinal: Present: normoactive bowel sounds. Absent: tenderness Integumentary: other (chronic right heel ulcer) Neurologic: alert and oriented x3 (speaks russian only) Musculoskeletal: Present: other (1+ edema to both lower extremities) Psychiatric: cooperative Results - Lab Results 07/27/16 05:08 07/27/16 05:08 Most recent lab results Calcium 8.0 mg/dL (8.4-10.2) L 07/27/16 05:08 Magnesium 1.9 mg/dL (1.7-2.3) 07/26/16 08:48 Assessment and Plan - Patient Problems (1) Acute kidney injury superimposed on CKD Current Visit: Yes Status: Acute Plan to address problem: Renal function reviewed, SCr level increased to 3.7 today, yesterday's SCr level was 3.4 Review of labs from last month at [facility] showed SCr level from 06/26 to 07/04 ranged from 3.4 to 4.8, with highest SCr level of 5.4 on 06/29/16 I contacted lab who reported serum sodium level was 133, potassium 3.9, and chloride 98- were showing pending on lab report today) Hyponatremia- improving Discontinue D5W + 150 mEq sodium bicarbonate infusion at 75 ml/hr Start 0.9% NS infusion at 50 ml/hr Blood cultures showed no growth at 24 hours Currently on Rocephin 1 g IVPB daily Chest X Ray showed no cardiopulmonary findings Renal ultrasound last month showed no hydronephrosis Renally dose medications Obtain daily weight Strict intake and output Intake= 10 ml Output= 910 ml (Net= -900 ml) Renal plan discussed with Dr Dixon No acute indication for initiation of CASE LOADER OPERATOR today, but will continue to monitor Continue supportive therapy (2) Metabolic acidosis Current Visit: No Status: Acute Plan to address problem: Currently on D5W+ 150 mEq sodium bicarbonate infusion at 75 ml/hr- Non-Anion Gap Metabolic Acidosis -Resolved Discontinue sodium bicarbonate drip (3) Anemia Current Visit: No Status: Acute Qualifiers: Anemia type: A Iron deficiency anemia type: I Vitamin B12 deficiency anemia type: V Folate deficiency anemia type: F Bone marrow failure anemia type: B Hemolytic anemia type: H Other causes of anemia: O Plan to address problem: Obtain iron studies Hgb level 7.2 today, if Hgb level continues to trend down, possible need for blood transfusion Monitor CBC daily
[2016-07-27] MEDS ORDERED: NACL 0.9% 1000 ML 1,000 ML IV SCH (18:00)
[2016-07-27] MEDS: ZOCOR PO SCH (23:26)
[2016-07-28] MEDS: ZOFRAN IV PRN ×3 (02:47→16:31)
[2016-07-28] MEDS ORDERED: TORADOL IV ONE (06:31)
[2016-07-28] MEDS: HEPARIN SUB-Q SCH ×3 (06:35→22:47)
--- NOTE | 2016-07-28 07:40 | Vascular Lab Report ---
Right Lower Extremity Venous Duplex Study: Reason for Exam: Shortness of breath. Comments on the Right: All veins visualized are freely compressible without evidence of internal echogenicity. Flow is spontaneous and phasic throughout. No evidence of acute or chronic thrombus is seen in any of the vessels visualized. Comments on the Left: A limited duplex study was done of the proximal veins of the left lower extremity. All veins visualized are freely compressible without evidence of internal echogenicity. Flow is spontaneous and phasic throughout. No evidence of acute or chronic thrombus is seen in any of the vessels visualized. Impression: No evidence of acute or chronic deep venous thrombosis in the right lower extremity.
[2016-07-28 08:41] LABS: Hematocrit 22.1 % (30.3-42.9); Mean Corpuscular HGB Conc 32 % (30-34); Mean Corpuscular Volume 80 fl (79-97); Platelet Count 252 K/mm3 (140-440); Red Blood Count 2.77 M/mm3 (3.65-5.03); Red Cell Distribution Width 16.5 % (13.2-15.2); White Blood Count 11.1 K/mm3 (4.5-11.0)
[2016-07-28 08:43] LABS: Mean Corpuscular Hemoglobin 25 pg (28-32)
[2016-07-28] MEDS: NOVOLOG SUB-Q SCH ×4 (09:19→22:51)
[2016-07-28] MEDS: ROCEPHIN/NS 1 GM/50 ML 1 GM/50 ML BAG IV SCH (09:25)
[2016-07-28] MEDS: TRENTAL PO SCH ×2 (09:25→22:41)
[2016-07-28] MEDS: LOPRESSOR PO SCH ×2 (09:26→22:41)
[2016-07-28] MEDS ORDERED: NACL 0.9% 500 ML 500 ML IV ONE (09:42)
--- NOTE | 2016-07-28 11:01 | Progress Note ---
Assessment and Plan Chronic renal failure Volume depletion Nausea vomiting Hyponatremia Chest pain Patient is considered not be a candidate for aggressive and invasive cardiac evaluation due to multiple comorbidities including renal failure and anemia. Severe Anemia Diabetes Hypertension Hyperlipidemia Diabetic Rt heel ulcer Elevated troponin, chronic An echocardiogram done 06/2016 reports a preserved left ventricle systolic function, but there are regional wall motion abnormalities at the apex, suggesting the presence of underlying coronary artery disease. Recommend: Medical therapy for underlying coronary disease. Subjective Date of service: 07/28/16 Interval history: Patient non-Niuean speaking. She is resting in bed comfortably. No family members at bedside. Objective Vital Signs Temp Pulse Pulse Resp BP BP Pulse Ox 07/28/16 08:00 98.3 F 90 18 122/60 99 07/28/16 06:41 26 H 07/28/16 00:20 98.5 F 97 H 18 119/56 100 07/27/16 23:00 57 L 104/56 07/27/16 16:00 98.8 F 90 18 130/62 07/27/16 10:47 106/58 - Physical Examination General: No Apparent Distress HEENT: Positive: PERRL Cardiac: Positive: Reg Rate and Rhythm Lungs: Positive: Decreased Breath Sounds - Labs and Meds CBC 07/28/16 Range/Units 08:12 WBC 11.1 H (4.5-11.0) K/mm3 RBC 2.77 L (3.65-5.03) M/mm3 Hgb 7.0 L (10.1-14.3) gm/dl Hct 22.1 L (30.3-42.9) % Plt Count 252 (140-440) K/mm3
--- NOTE | 2016-07-28 11:01 | Progress Note ---
Assessment and Plan Assessment and plan: 1. Sepsis 2/2 RLE cellulitis. F/U MRI continue sepsis pathway, continue abx, fup blood cx 2. Anemia of CKD hemoglobin 7.0. T & C and transfuse 1 unit 3. CKD stage 4 stable, creatinine at baseline, avoid nephrotoxic agents. Nephrology following 4. Metabolic acidosis likely 2/2 sepsis, rx underlying cause 5. NSTEMI -CAD She was recently admitted and seen by cardiology who had recommended only medical management (last month, she had Echo which showed regional wall motion abnormalities, but has not had recent stress test or cath) -consult cardiology team 6. Acute exacerbation of systolic CHF IV lasix, optimize meds 7. DM continue basal and bolus insulins, and SSI, FS glucose qac and hs 8. Hyponatremia likely 2/2 to fluid overload, should improve with diuresis 9. N/V. Check KUB History Interval history: This is a 61 year old female with PMH of chronic kidney disease stage 5, hypertension, diabetes mellitus type 2 insulin dependent, and congestive heart failure (EF 45%) who presented to [facility] with complaints of fever, chills, nausea , vomiting, fatigue, chest pain, productive cough with white sputum, bilateral lower extremity edema, chronic right heel ulcer (followed by Dr Ann- [employer]), and pain to right lower extremity. This morning patient complains of nausea and vomiting. No hematemesis. Hospitalist Physical - Constitutional Vitals: Temp Pulse Resp BP Pulse Ox 98.3 F 90 18 122/60 99 07/28/16 08:00 07/28/16 08:00 07/28/16 08:00 07/28/16 08:00 07/28/16 08:00 General appearance: Present: no acute distress - EENT Eyes: Present: PERRL, EOM intact ENT: hearing intact, clear oral mucosa, dentition normal - Neck Neck: Present: supple, normal ROM - Respiratory Respiratory effort: normal Respiratory: bilateral: CTA - Cardiovascular Rhythm: regular Heart Sounds: Present: S1 & S2. Absent: gallop, rub - Extremities Extremities: no ischemia, No edema, Full ROM - Abdominal General gastrointestinal: soft, non-tender, non-distended, normal bowel sounds - Integumentary Integumentary: Present: clear, warm, dry - Neurologic Neurologic: CNII-XII intact, moves all extremities Results - Labs CBC & Chem 7: 07/28/16 08:12 07/27/16 05:08 Labs: Laboratory Last Values WBC 11.1 K/mm3 (4.5-11.0) H 07/28/16 08:12 RBC 2.77 M/mm3 (3.65-5.03) L 07/28/16 08:12 Hgb 7.0 gm/dl (10.1-14.3) L 07/28/16 08:12 Hct 22.1 % (30.3-42.9) L 07/28/16 08:12 MCV 80 fl (79-97) 07/28/16 08:12 MCH 25 pg (28-32) L 07/28/16 08:12 MCHC 32 % (30-34) 07/28/16 08:12 RDW 16.5 % (13.2-15.2) H 07/28/16 08:12 Plt Count 252 K/mm3 (140-440) 07/28/16 08:12 Lymph % (Auto) 10.4 % (13.4-35.0) L 07/27/16 05:08 [place] % (Auto) 9.0 % (0.0-7.3) H 07/27/16 05:08 Eos % (Auto) 0.4 % (0.0-4.3) 07/27/16 05:08 Baso % (Auto) 0.2 % (0.0-1.8) 07/27/16 05:08 Lymph # 1.6 K/mm3 (1.2-5.4) 07/27/16 05:08 [place] # 1.4 K/mm3 (0.0-0.8) H 07/27/16 05:08 Eos # 0.1 K/mm3 (0.0-0.4) 07/27/16 05:08 Baso # 0.0 K/mm3 (0.0-0.1) 07/27/16 05:08 Add Manual Diff Complete 07/26/16 08:30 Total Counted 100 07/26/16 08:30 Seg Neutrophils % 80.0 % (40.0-70.0) H 07/27/16 05:08 Seg Neuts % (Manual) 89.0 % (40.0-70.0) H 07/26/16 08:30 Band Neutrophils % 0 % 07/26/16 08:30 Lymphocytes % (Manual) 6.0 % (13.4-35.0) L 07/26/16 08:30 Reactive Lymphs % (Man) 0 % 07/26/16 08:30 Monocytes % (Manual) 5.0 % (0.0-7.3) 07/26/16 08:30 Eosinophils % (Manual) 0 % (0.0-4.3) 07/26/16 08:30 Basophils % (Manual) 0 % (0.0-1.8) 07/26/16 08:30 Metamyelocytes % 0 % 07/26/16 08:30 Myelocytes % 0 % 07/26/16 08:30 Promyelocytes % 0 % 07/26/16 08:30 Blast Cells % 0 % 07/26/16 08:30 Nucleated RBC % Not Reportable 07/26/16 08:30 Seg Neutrophils # 12.7 K/mm3 (1.8-7.7) H 07/27/16 05:08 Seg Neutrophils # Man 21.8 K/mm3 (1.8-7.7) H 07/26/16 08:30 Band Neutrophils # 0.0 K/mm3 07/26/16 08:30 Lymphocytes # (Manual) 1.5 K/mm3 (1.2-5.4) 07/26/16 08:30 Abs React Lymphs (Man) 0.0 K/mm3 07/26/16 08:30 Monocytes # (Manual) 1.2 K/mm3 (0.0-0.8) H 07/26/16 08:30 Eosinophils # (Manual) 0.0 K/mm3 (0.0-0.4) 07/26/16 08:30 Basophils # (Manual) 0.0 K/mm3 (0.0-0.1) 07/26/16 08:30 Metamyelocytes # 0.0 K/mm3 07/26/16 08:30 Myelocytes # 0.0 K/mm3 07/26/16 08:30 Promyelocytes # 0.0 K/mm3 07/26/16 08:30 Blast Cells # 0.0 K/mm3 07/26/16 08:30 WBC Morphology Not Reportable 07/26/16 08:30 Hypersegmented Neuts Not Reportable 07/26/16 08:30 Hyposegmented Neuts Not Reportable 07/26/16 08:30 Hypogranular Neuts Not Reportable 07/26/16 08:30 Smudge Cells Not Reportable 07/26/16 08:30 Toxic Granulation Not Reportable 07/26/16 08:30 Toxic Vacuolation Not Reportable 07/26/16 08:30 Dohle Bodies Not Reportable 07/26/16 08:30 Pelger-Huet Anomaly Not Reportable 07/26/16 08:30 Margot Rods Not Reportable 07/26/16 08:30 Platelet Estimate Appears normal 07/26/16 08:30 Clumped Platelets Not Reportable 07/26/16 08:30 Plt Clumps, EDTA Not Reportable 07/26/16 08:30 Large Platelets Not Reportable 07/26/16 08:30 Giant Platelets Not Reportable 07/26/16 08:30 Platelet Satelliting Not Reportable 07/26/16 08:30 Plt Morphology Comment Not Reportable 07/26/16 08:30 RBC Morphology Not Reportable 07/26/16 08:30 Dimorphic RBCs Not Reportable 07/26/16 08:30 Polychromasia Not Reportable 07/26/16 08:30 Hypochromasia 1+ 07/26/16 08:30 Poikilocytosis Not Reportable 07/26/16 08:30 Anisocytosis Not Reportable 07/26/16 08:30 Microcytosis Not Reportable 07/26/16 08:30 Macrocytosis Not Reportable 07/26/16 08:30 Spherocytes Not Reportable 07/26/16 08:30 Pappenheimer Bodies Not Reportable 07/26/16 08:30 Sickle Cells Not Reportable 07/26/16 08:30 Target Cells Not Reportable 07/26/16 08:30 Tear Drop Cells Not Reportable 07/26/16 08:30 Ovalocytes Not Reportable 07/26/16 08:30 Helmet Cells Not Reportable 07/26/16 08:30 [place] Bodies Not Reportable 07/26/16 08:30 [place] Rings Not Reportable 07/26/16 08:30 [place] Cells Not Reportable 07/26/16 08:30 Bite Cells Not Reportable 07/26/16 08:30 Crenated Cell Not Reportable 07/26/16 08:30 Elliptocytes Not Reportable 07/26/16 08:30 Acanthocytes (Spur) Not Reportable 07/26/16 08:30 Rouleaux Not Reportable 07/26/16 08:30 Hemoglobin C Crystals Not Reportable 07/26/16 08:30 Schistocytes Not Reportable 07/26/16 08:30 Malaria parasites Not Reportable 07/26/16 08:30 ESR > 140.0 mm/Hr (0-20) 07/26/16 15:30 Roberto Bodies Not Reportable 07/26/16 08:30 Hem Pathologist Commnt No 07/26/16 08:30 PT 15.0 Sec. (12.2-14.9) H 07/26/16 08:48 INR 1.19 (0.87-1.13) H 07/26/16 08:48 APTT 26.8 Sec. (24.2-36.6) 07/26/16 08:48 Sodium 129 mmol/L (137-145) L 07/26/16 08:04 Potassium 4.7 mmol/L (3.6-5.0) 07/26/16 08:04 Chloride 60.0 mmol/L (98-107) L 07/26/16 08:04 Carbon Dioxide 23 mmol/L (22-30) D 07/27/16 05:08 Anion Gap 16 mmol/L 07/27/16 05:08 BUN 49 mg/dL (7-17) H 07/27/16 05:08 Creatinine 3.7 mg/dL (0.7-1.2) H 07/27/16 05:08 Estimated GFR 12 ml/min 07/27/16 05:08 BUN/Creatinine Ratio 13.24 % 07/27/16 05:08 Glucose 74 mg/dL (65-100) 07/27/16 05:08 POC Glucose 183 (70-105) H 07/28/16 05:17 Lactic Acid 1.6 mmol/L (0.7-2.0) 07/26/16 13:25 Calcium 8.0 mg/dL (8.4-10.2) L 07/27/16 05:08 Magnesium 1.9 mg/dL (1.7-2.3) 07/26/16 08:48 Total Creatine Kinase 112 units/L (30-135) 07/26/16 08:48 CK-MB (CK-2) 4.3 ng/mL (0.0-4.0) H 07/26/16 08:48 CK-MB (CK-2) Rel Index 3.8 (0-4) 07/26/16 08:48 Troponin T 0.404 ng/mL (0.00-0.029) H* 07/26/16 08:04 C-Reactive Protein 28.60 mg/dL (0.00-1.30) H 07/26/16 08:48 Triglycerides 103 mg/dL (2-149) 07/26/16 08:04 Cholesterol 174 mg/dL (50-199) 07/26/16 08:04 LDL Cholesterol Direct 81 mg/dL (50-130) 07/26/16 08:04 HDL Cholesterol 73 mg/dL (40-59) H 07/26/16 08:04 Cholesterol/HDL Ratio 2.38 % 07/26/16 08:04 Urine Color Yellow (Yellow) 07/26/16 10:16 Urine Turbidity Clear (Clear) 07/26/16 10:16 Urine pH 6.0 (5.0-7.0) 07/26/16 10:16 Ur Specific [place] 1.010 (1.003-1.030) 07/26/16 10:16 Urine Protein >500 mg/dL (Negative) 07/26/16 10:16 Urine Glucose (UA) >=500 mg/dL (Negative) 07/26/16 10:16 Urine Ketones Tr mg/dL (Negative) 07/26/16 10:16 Urine Blood Neg (Negative) 07/26/16 10:16 Urine Nitrite Neg (Negative) 07/26/16 10:16 Urine Bilirubin Neg (Negative) 07/26/16 10:16 Urine Urobilinogen < 2.0 mg/dL (<2.0) 07/26/16 10:16 Ur Leukocyte Esterase Neg (Negative) 07/26/16 10:16 Urine WBC (Auto) 1.0 /HPF (0.0-6.0) 07/26/16 10:16 Urine RBC (Auto) 2.0 /HPF (0.0-6.0) 07/26/16 10:16 Urine Mucus Few /HPF 07/26/16 10:16
--- NOTE | 2016-07-28 12:07 | XRay Report ---
Flat abdomen: History: Nausea and vomiting. Findings: No bowel distention or wall thickening. Stool in colon. No radiopaque calculus or abnormal calcification. Impression: Essentially negative abdomen.
[2016-07-28 14:16] LABS: BUN/Creatinine Ratio 11.02; Calcium 7.7 mg/dL (8.4-10.2); Chloride 92.6 mmol/L (98-107); Total Iron Binding Capacity 109.2 mcg/dL (250-450)
--- NOTE | 2016-07-28 15:35 | Progress Note ---
Assessment and Plan (1) Acute kidney injury superimposed on CKD Current Visit: Yes Status: Acute Plan to address problem: will d/c IVF, good UOP Hyponatremia- fluid restriction Chest X Ray showed no cardiopulmonary findings Renal ultrasound last month showed no hydronephrosis Renally dose medications Obtain daily weight Strict intake and output (2) Metabolic acidosis Current Visit: No Status: Acute Plan to address problem: resolved (3) Anemia Current Visit: No Status: Acute Qualifiers: Anemia type: A Iron deficiency anemia type: I Vitamin B12 deficiency anemia type: V Folate deficiency anemia type: F Bone marrow failure anemia type: B Hemolytic anemia type: H Other causes of anemia: O Plan to address problem: 1 unit prbc scheduled Subjective Date of service: 07/28/16 Principal diagnosis: severe renal failure Interval history: patient was in MRI Objective - Vital Signs Vital signs: Vital Signs - 12hr 07/28/16 07/28/16 06:41 08:00 Temperature 98.3 F Pulse Rate [ 90 Left Radial] Respiratory 26 H 18 Rate Blood Pressure 122/60 [Left Arm] O2 Sat by Pulse 99 Oximetry - Lab 07/28/16 08:12 07/28/16 08:12 Most recent lab results Calcium 7.7 mg/dL (8.4-10.2) L 07/28/16 08:12 Phosphorus 4.0 mg/dL (2.5-4.5) 07/28/16 08:12 Magnesium 1.9 mg/dL (1.7-2.3) 07/26/16 08:48
[2016-07-28] MEDS: ULTRAM PO PRN (16:31)
[2016-07-28] MEDS ORDERED: APRESOLINE IV ONE (18:08)
--- NOTE | 2016-07-28 22:38 | Consultation ---
HISTORY OF PRESENT ILLNESS: The patient was visited at bedside. The patient appeared to be resting well. The patient is a non-Filipino speaking female, 61 years old . Anne-Marie Bahena is there to translate. The patient's chart reviewed, labs noted, foot evaluated. Examination revealed dry tissue, but no open wound present. Wound appeared to be significantly improved since her last stent in the hospital and being seen in my office/Dr. Chuy Ann several weeks ago. We will recommend wound care, wound with improvement, and we will see the patient on an outpatient basis once discharged. Recommend wound care. JOB# [id number] FRANKIE/CHIDI
[2016-07-28] MEDS: ZOCOR PO SCH (22:41)
[2016-07-29] MEDS: ZOFRAN IV PRN (05:16)
[2016-07-29] MEDS: HEPARIN SUB-Q SCH ×3 (05:16→22:30)
[2016-07-29 07:14] LABS: Hematocrit 28.2 % (30.3-42.9); Hemoglobin 8.8 gm/dl (10.1-14.3); Mean Corpuscular HGB Conc 31 % (30-34); Mean Corpuscular Volume 82 fl (79-97); Platelet Count 269 K/mm3 (140-440); Red Blood Count 3.44 M/mm3 (3.65-5.03); Red Cell Distribution Width 16.3 % (13.2-15.2); White Blood Count 11.7 K/mm3 (4.5-11.0)
[2016-07-29] MEDS: NOVOLOG SUB-Q SCH ×4 (07:30→22:30)
[2016-07-29 07:39] LABS: BUN/Creatinine Ratio 11.94; Chloride 92.5 mmol/L (98-107); Potassium 4.2 mmol/L (3.6-5.0)
[2016-07-29 08:02] LABS: Mean Corpuscular Hemoglobin 26 pg (28-32)
--- NOTE | 2016-07-29 09:57 | Magnetic Resonance Report ---
MRI RIGHT LOWER EXTREMITY WITHOUT CONTRAST: 07/28/16 CLINICAL: Infection and osteomyelitis. COMPARISON:09/18/09 MRI ankle. TECHNIQUE: Sagittal, coronal and axial T1, coronal and axial T2 fat sat, sagittal STIR and sagittal, coronal and axial postcontrast T1 fat sat sequences on a 1.5 [place] magnet. The examination was targeted for the lower leg not the ankle. FINDINGS: Most of the tibia and fibula are included on the exam and have normal signal with no marrow edema or erosive lesions. The proximal aspect of both the tibia and fibula at the knee are not included. There is diffuse soft tissue edema which is both superficial and deep. Uniform atrophy of the muscles of the lower leg with fatty infiltration. There is a small ankle joint effusion. Mild marrow edema of the talus. The calcaneus is fragmented and edematous. Fluid at the calcaneus extends to the plantar surface of the foot. 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 Cellulitis of the hindfoot. No changes of osteomyelitis involving the tibia or fibula. Extensive muscle atrophy of the lower leg and diffuse soft tissue edema of the lower lid.
--- NOTE | 2016-07-29 10:01 | Progress Note ---
Assessment and Plan 1. Persistent nausea and vomiting 2. Chronic kidney disease stage IV 3. Elevated serum troponin levels probably related to chronic renal disease 4. Type II diabetes mellitus 5. Right diabetic foot ulcer 6. Essential hypertension 7. Hyperlipidemia 8. Abnormal echocardiogram with wall motion abnormalities consistent with coronary artery disease. Plan. Patient is currently stable will continue present management Lexiscan MPI would be done to rule out ischemic coronary artery disease. Subjective Date of service: 07/29/16 Principal diagnosis: severe renal failure Interval history: Patient with persistent nausea and vomiting denies any chest pain. Objective Vital Signs Temp Pulse Pulse Resp BP BP Pulse Ox 07/29/16 00:00 99.0 F 88 20 141/66 100 07/28/16 22:41 99 H 158/72 07/28/16 20:30 98.4 F 88 20 135/68 100 07/28/16 20:28 87 20 07/28/16 20:15 98.2 F 87 20 116/56 100 07/28/16 19:45 98 F 86 18 133/65 07/28/16 18:36 80 185/84 07/28/16 17:02 97.8 F 80 18 184/78 07/28/16 15:48 99.3 F 79 18 111/72 - Physical Examination General: Appears Well, No Apparent Distress, Other (obese) HEENT: Positive: PERRL Neck: Positive: neck supple. Negative: JVD/HJR Cardiac: Positive: Regular Rate, S1/S2, PMI, Laterally Displaced Lungs: Positive: clear to auscultation Abdomen: Positive: Unremarkable, Soft Skin: Positive: Clear - Labs and Meds CBC 07/29/16 Range/Units 06:04 WBC 11.7 H (4.5-11.0) K/mm3 RBC 3.44 L (3.65-5.03) M/mm3 Hgb 8.8 L (10.1-14.3) gm/dl Hct 28.2 L D (30.3-42.9) % Plt Count 269 (140-440) K/mm3 Comprehensive Metabolic Panel 07/28/16 07/29/16 Range/Units 08:12 06:04 Sodium 132 L 132 L (137-145) mmol/L Potassium 4.0 4.2 (3.6-5.0) mmol/L Chloride 92.6 L 92.5 L (98-107) mmol/L Carbon Dioxide 24 24 (22-30) mmol/L BUN 43 H 43 H (7-17) mg/dL Creatinine 3.9 H 3.6 H (0.7-1.2) mg/dL Glucose 198 H 106 H (65-100) mg/dL Calcium 7.7 L 8.0 L (8.4-10.2) mg/dL - Telemetry EKG Rhythm: Sinus Rhythm
--- NOTE | 2016-07-29 10:08 | Progress Note ---
Assessment and Plan Assessment and plan: 1. Sepsis 2/2 RLE cellulitis. F/U MRI continue sepsis pathway, continue abx, fup blood cx 2. Anemia of CKD s/p 1 unit PRBCs. H&H stable. 3. CKD stage 4 stable, creatinine at baseline, avoid nephrotoxic agents. Nephrology following 4. Metabolic acidosis likely 2/2 sepsis, resolving 5. NSTEMI -CAD She was recently admitted and seen by cardiology who had recommended only medical management (last month, she had Echo which showed regional wall motion abnormalities, but has not had recent stress test or cath) -consult cardiology team 6. Acute exacerbation of systolic CHF IV lasix, optimize meds 7. DM continue basal and bolus insulins, and SSI, FS glucose qac and hs 8. Hyponatremia likely 2/2 to fluid overload, should improve with diuresis 9. N/V. KUB negative. Etiology may be secondary to #1. ? Diabetic gastroparesis. We will start Reglan. 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 This morning patient complains of nausea and vomiting. Son is at the bedside. Hospitalist Physical - Constitutional Vitals: Temp Pulse Resp BP Pulse Ox 99.0 F 88 20 141/66 100 07/29/16 00:00 07/29/16 00:00 07/29/16 00:00 07/29/16 00:00 07/29/16 00:00 General appearance: Present: no acute distress - EENT Eyes: Present: PERRL, EOM intact ENT: hearing intact, clear oral mucosa, dentition normal - Neck Neck: Present: supple, normal ROM - Respiratory Respiratory effort: normal Respiratory: bilateral: CTA - Cardiovascular Rhythm: regular Heart Sounds: Present: S1 & S2. Absent: gallop, rub - Extremities Extremities: no ischemia, No edema, Full ROM - Abdominal General gastrointestinal: soft, non-tender, non-distended, normal bowel sounds - Integumentary Integumentary: Present: clear, warm, dry - Neurologic Neurologic: CNII-XII intact, moves all extremities Results - Labs CBC & Chem 7: 07/29/16 06:04 07/29/16 06:04 Labs: Laboratory Last Values WBC 11.7 K/mm3 (4.5-11.0) H 07/29/16 06:04 RBC 3.44 M/mm3 (3.65-5.03) L 07/29/16 06:04 Hgb 8.8 gm/dl (10.1-14.3) L 07/29/16 06:04 Hct 28.2 % (30.3-42.9) L D 07/29/16 06:04 MCV 82 fl (79-97) 07/29/16 06:04 MCH 26 pg (28-32) L 07/29/16 06:04 MCHC 31 % (30-34) 07/29/16 06:04 RDW 16.3 % (13.2-15.2) H 07/29/16 06:04 Plt Count 269 K/mm3 (140-440) 07/29/16 06:04 Lymph % (Auto) 10.4 % (13.4-35.0) L 07/27/16 05:08 Morgan % (Auto) 9.0 % (0.0-7.3) H 07/27/16 05:08 Eos % (Auto) 0.4 % (0.0-4.3) 07/27/16 05:08 Baso % (Auto) 0.2 % (0.0-1.8) 07/27/16 05:08 Lymph # 1.6 K/mm3 (1.2-5.4) 07/27/16 05:08 Morgan # 1.4 K/mm3 (0.0-0.8) H 07/27/16 05:08 Eos # 0.1 K/mm3 (0.0-0.4) 07/27/16 05:08 Baso # 0.0 K/mm3 (0.0-0.1) 07/27/16 05:08 Add Manual Diff Complete 07/26/16 08:30 Total Counted 100 07/26/16 08:30 Seg Neutrophils % 80.0 % (40.0-70.0) H 07/27/16 05:08 Seg Neuts % (Manual) 89.0 % (40.0-70.0) H 07/26/16 08:30 Band Neutrophils % 0 % 07/26/16 08:30 Lymphocytes % (Manual) 6.0 % (13.4-35.0) L 07/26/16 08:30 Reactive Lymphs % (Man) 0 % 07/26/16 08:30 Monocytes % (Manual) 5.0 % (0.0-7.3) 07/26/16 08:30 Eosinophils % (Manual) 0 % (0.0-4.3) 07/26/16 08:30 Basophils % (Manual) 0 % (0.0-1.8) 07/26/16 08:30 Metamyelocytes % 0 % 07/26/16 08:30 Myelocytes % 0 % 07/26/16 08:30 Promyelocytes % 0 % 07/26/16 08:30 Blast Cells % 0 % 07/26/16 08:30 Nucleated RBC % Not Reportable 07/26/16 08:30 Seg Neutrophils # 12.7 K/mm3 (1.8-7.7) H 07/27/16 05:08 Seg Neutrophils # Man 21.8 K/mm3 (1.8-7.7) H 07/26/16 08:30 Band Neutrophils # 0.0 K/mm3 07/26/16 08:30 Lymphocytes # (Manual) 1.5 K/mm3 (1.2-5.4) 07/26/16 08:30 Abs React Lymphs (Man) 0.0 K/mm3 07/26/16 08:30 Monocytes # (Manual) 1.2 K/mm3 (0.0-0.8) H 07/26/16 08:30 Eosinophils # (Manual) 0.0 K/mm3 (0.0-0.4) 07/26/16 08:30 Basophils # (Manual) 0.0 K/mm3 (0.0-0.1) 07/26/16 08:30 Metamyelocytes # 0.0 K/mm3 07/26/16 08:30 Myelocytes # 0.0 K/mm3 07/26/16 08:30 Promyelocytes # 0.0 K/mm3 07/26/16 08:30 Blast Cells # 0.0 K/mm3 07/26/16 08:30 WBC Morphology Not Reportable 07/26/16 08:30 Hypersegmented Neuts Not Reportable 07/26/16 08:30 Hyposegmented Neuts Not Reportable 07/26/16 08:30 Hypogranular Neuts Not Reportable 07/26/16 08:30 Smudge Cells Not Reportable 07/26/16 08:30 Toxic Granulation Not Reportable 07/26/16 08:30 Toxic Vacuolation Not Reportable 07/26/16 08:30 Dohle Bodies Not Reportable 07/26/16 08:30 Pelger-Huet Anomaly Not Reportable 07/26/16 08:30 Margot Rods Not Reportable 07/26/16 08:30 Platelet Estimate Appears normal 07/26/16 08:30 Clumped Platelets Not Reportable 07/26/16 08:30 Plt Clumps, EDTA Not Reportable 07/26/16 08:30 Large Platelets Not Reportable 07/26/16 08:30 Giant Platelets Not Reportable 07/26/16 08:30 Platelet Satelliting Not Reportable 07/26/16 08:30 Plt Morphology Comment Not Reportable 07/26/16 08:30 RBC Morphology Not Reportable 07/26/16 08:30 Dimorphic RBCs Not Reportable 07/26/16 08:30 Polychromasia Not Reportable 07/26/16 08:30 Hypochromasia 1+ 07/26/16 08:30 Poikilocytosis Not Reportable 07/26/16 08:30 Anisocytosis Not Reportable 07/26/16 08:30 Microcytosis Not Reportable 07/26/16 08:30 Macrocytosis Not Reportable 07/26/16 08:30 Spherocytes Not Reportable 07/26/16 08:30 Pappenheimer Bodies Not Reportable 07/26/16 08:30 Sickle Cells Not Reportable 07/26/16 08:30 Target Cells Not Reportable 07/26/16 08:30 Tear Drop Cells Not Reportable 07/26/16 08:30 Ovalocytes Not Reportable 07/26/16 08:30 Helmet Cells Not Reportable 07/26/16 08:30 [place] Bodies Not Reportable 07/26/16 08:30 [place] Rings Not Reportable 07/26/16 08:30 Jose Cells Not Reportable 07/26/16 08:30 Bite Cells Not Reportable 07/26/16 08:30 Crenated Cell Not Reportable 07/26/16 08:30 Elliptocytes Not Reportable 07/26/16 08:30 Acanthocytes (Spur) Not Reportable 07/26/16 08:30 Rouleaux Not Reportable 07/26/16 08:30 Hemoglobin C Crystals Not Reportable 07/26/16 08:30 Schistocytes Not Reportable 07/26/16 08:30 Malaria parasites Not Reportable 07/26/16 08:30 ESR > 140.0 mm/Hr (0-20) 07/26/16 15:30 Roberto Bodies Not Reportable 07/26/16 08:30 Hem Pathologist Commnt No 07/26/16 08:30 PT 15.0 Sec. (12.2-14.9) H 07/26/16 08:48 INR 1.19 (0.87-1.13) H 07/26/16 08:48 APTT 26.8 Sec. (24.2-36.6) 07/26/16 08:48 Sodium 132 mmol/L (137-145) L 07/29/16 06:04 Potassium 4.2 mmol/L (3.6-5.0) 07/29/16 06:04 Chloride 92.5 mmol/L (98-107) L 07/29/16 06:04 Carbon Dioxide 24 mmol/L (22-30) 07/29/16 06:04 Anion Gap 20 mmol/L 07/29/16 06:04 BUN 43 mg/dL (7-17) H 07/29/16 06:04 Creatinine 3.6 mg/dL (0.7-1.2) H 07/29/16 06:04 Estimated GFR 13 ml/min 07/29/16 06:04 BUN/Creatinine Ratio 11.94 % 07/29/16 06:04 Glucose 106 mg/dL (65-100) H 07/29/16 06:04 POC Glucose 118 (70-105) H 07/29/16 05:59 Lactic Acid 1.6 mmol/L (0.7-2.0) 07/26/16 13:25 Calcium 8.0 mg/dL (8.4-10.2) L 07/29/16 06:04 Phosphorus 4.0 mg/dL (2.5-4.5) 07/28/16 08:12 Magnesium 1.9 mg/dL (1.7-2.3) 07/26/16 08:48 Iron 19 ug/dL (37-170) L 07/28/16 08:12 TIBC 109.20 mcg/dL (250-450) L 07/28/16 08:12 Transferrin 78 mg/dl (192-382) L 07/28/16 08:12 Ferritin 1606.0 ng/mL (13.0-400.0) H 07/28/16 08:12 Total Creatine Kinase 112 units/L (30-135) 07/26/16 08:48 CK-MB (CK-2) 4.3 ng/mL (0.0-4.0) H 07/26/16 08:48 CK-MB (CK-2) Rel Index 3.8 (0-4) 07/26/16 08:48 Troponin T 0.404 ng/mL (0.00-0.029) H* 07/26/16 08:04 C-Reactive Protein 28.60 mg/dL (0.00-1.30) H 07/26/16 08:48 Triglycerides 103 mg/dL (2-149) 07/26/16 08:04 Cholesterol 174 mg/dL (50-199) 07/26/16 08:04 LDL Cholesterol Direct 81 mg/dL (50-130) 07/26/16 08:04 HDL Cholesterol 73 mg/dL (40-59) H 07/26/16 08:04 Cholesterol/HDL Ratio 2.38 % 07/26/16 08:04 Urine Color Yellow (Yellow) 07/26/16 10:16 Urine Turbidity Clear (Clear) 07/26/16 10:16 Urine pH 6.0 (5.0-7.0) 07/26/16 10:16 Ur Specific [place] 1.010 (1.003-1.030) 07/26/16 10:16 Urine Protein >500 mg/dL (Negative) 07/26/16 10:16 Urine Glucose (UA) >=500 mg/dL (Negative) 07/26/16 10:16 Urine Ketones Tr mg/dL (Negative) 07/26/16 10:16 Urine Blood Neg (Negative) 07/26/16 10:16 Urine Nitrite Neg (Negative) 07/26/16 10:16 Urine Bilirubin Neg (Negative) 07/26/16 10:16 Urine Urobilinogen < 2.0 mg/dL (<2.0) 07/26/16 10:16 Ur Leukocyte Esterase Neg (Negative) 07/26/16 10:16 Urine WBC (Auto) 1.0 /HPF (0.0-6.0) 07/26/16 10:16 Urine RBC (Auto) 2.0 /HPF (0.0-6.0) 07/26/16 10:16 Urine Mucus Few /HPF 07/26/16 10:16 Blood Type O POSITIVE 07/28/16 12:36 Antibody Screen Negative 07/28/16 12:36 Crossmatch See Detail 07/28/16 12:36
[2016-07-29] MEDS: ROCEPHIN/NS 1 GM/50 ML 1 GM/50 ML BAG IV SCH (11:13)
[2016-07-29] MEDS: REGLAN IV PRN (11:43)
--- NOTE | 2016-07-29 13:04 | Progress Note ---
Assessment and Plan - Patient Problems (1) Acute kidney injury superimposed on CKD Current Visit: Yes Status: Acute Plan to address problem: Renal function reviewed, SCr level decreased to 3.6 today, yesterday's SCr level was 3.9, non-oliguric Blood cultures showed no growth at 72 hours Currently on Rocephin 1 g IVPB daily Status post transfusion of 1 unit of PRBCs on 07/28/16 Renal ultrasound last month showed no hydronephrosis Abdominal X Ray on 07/28/16 showed essentially negative abdomen Hyponatremia- continue fluid restriction of 1 liter per day Renally dose medications Obtain daily weight Strict intake and output Intake= 290 ml Output= 700 ml (Net= -410 ml) Renal plan discussed with Dr Dixon No 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 Family at beside, updated on renal plan Objective - General Appearance General appearance: well-developed (no acute distress, indian speaking only) EENT: ATNC Neck: no JVD Respiratory: Present: Clear to Ascultation Cardiology: regular, S1S2 Gastrointestinal: normoactive bowel sounds, no tenderness Integumentary: ulcer (right foot heel ulcer) Neurologic: alert and oriented x3 (indian speaking only) Musculoskeletal: other (trace edema to both lower extremities) Psychiatric: mood/affect appropriate - Lab 07/29/16 06:04 07/29/16 06:04 Most recent lab results Calcium 8.0 mg/dL (8.4-10.2) L 07/29/16 06:04 Phosphorus 4.0 mg/dL (2.5-4.5) 07/28/16 08:12 Magnesium 1.9 mg/dL (1.7-2.3) 07/26/16 08:48
[2016-07-29] MEDS: TRENTAL PO SCH ×2 (15:21→22:29)
[2016-07-29] MEDS: LOPRESSOR PO SCH ×2 (15:22→22:29)
[2016-07-29] MEDS: ZOCOR PO SCH (22:29)
[2016-07-30] MEDS: TYLENOL PO PRN (00:24)
[2016-07-30] MEDS: HEPARIN SUB-Q SCH ×3 (06:04→22:44)
[2016-07-30] MEDS: REGLAN IV PRN (06:09)
[2016-07-30 06:33] LABS: Hematocrit 28.2 % (30.3-42.9); Hemoglobin 9.1 gm/dl (10.1-14.3); Mean Corpuscular HGB Conc 32 % (30-34); Mean Corpuscular Hemoglobin 27 pg (28-32); Mean Corpuscular Volume 82 fl (79-97); Platelet Count 295 K/mm3 (140-440); Red Blood Count 3.45 M/mm3 (3.65-5.03); White Blood Count 10.9 K/mm3 (4.5-11.0)
[2016-07-30 06:49] LABS: BUN/Creatinine Ratio 11.42; Calcium 7.8 mg/dL (8.4-10.2); Chloride 96.3 mmol/L (98-107)
[2016-07-30] MEDS: NOVOLOG SUB-Q SCH ×4 (08:39→22:48)
--- NOTE | 2016-07-30 09:13 | Progress Note ---
Assessment and Plan Assessment and plan: 1. Sepsis 2/2 RLE cellulitis/osteomyelitis. Resolving. continue sepsis pathway, blood cultures are negative. 2. Calcaneal osteomyelitis. Continue IV antibiotics. ID consultation for antibiotics and duration. 3. Anemia of CKD s/p 1 unit PRBCs. H&H stable. 4. CKD stage 4 stable, creatinine at baseline, avoid nephrotoxic agents. Nephrology following 5. NSTEMI -CAD She was recently admitted and seen by cardiology who had recommended only medical management (last month, she had Echo which showed regional wall motion abnormalities, but has not had recent stress test or cath) Cardiology recommends Lexiscan. Nothing by mouth after midnight and arrange for test in morning. 6. Acute exacerbation of systolic CHF. Resolved. Continued IV lasix as needed, optimize meds 7. DM continue basal and bolus insulins, and SSI, FS glucose qac and hs 8. Hyponatremia likely 2/2 to fluid overload, should improve with diuresis 9. N/V. KUB negative. Etiology may be secondary to #1. ? Diabetic gastroparesis. Continue Reglan. 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 This morning patient complains of nausea and vomiting. Son is at the bedside. Hospitalist Physical - Constitutional Vitals: Temp Pulse Resp BP Pulse Ox 98.3 F 82 16 179/76 100 07/30/16 08:55 07/30/16 08:55 07/30/16 08:55 07/30/16 08:55 07/30/16 08:55 General appearance: Present: no acute distress - EENT Eyes: Present: PERRL, EOM intact ENT: hearing intact, clear oral mucosa, dentition normal - Neck Neck: Present: supple, normal ROM - Respiratory Respiratory effort: normal Respiratory: bilateral: CTA - Cardiovascular Rhythm: regular Heart Sounds: Present: S1 & S2. Absent: gallop, rub - Extremities Extremities: no ischemia, No edema, Full ROM - Abdominal General gastrointestinal: soft, non-tender, non-distended, normal bowel sounds - Integumentary Integumentary: Present: clear, warm, dry - Neurologic Neurologic: CNII-XII intact, moves all extremities Results - Labs CBC & Chem 7: 07/30/16 05:36 07/30/16 05:36 Labs: Laboratory Last Values WBC 10.9 K/mm3 (4.5-11.0) 07/30/16 05:36 RBC 3.45 M/mm3 (3.65-5.03) L 07/30/16 05:36 Hgb 9.1 gm/dl (10.1-14.3) L 07/30/16 05:36 Hct 28.2 % (30.3-42.9) L 07/30/16 05:36 MCV 82 fl (79-97) 07/30/16 05:36 MCH 27 pg (28-32) L 07/30/16 05:36 MCHC 32 % (30-34) 07/30/16 05:36 RDW 16.0 % (13.2-15.2) H 07/30/16 05:36 Plt Count 295 K/mm3 (140-440) 07/30/16 05:36 Lymph % (Auto) 10.4 % (13.4-35.0) L 07/27/16 05:08 [place] % (Auto) 9.0 % (0.0-7.3) H 07/27/16 05:08 Eos % (Auto) 0.4 % (0.0-4.3) 07/27/16 05:08 Baso % (Auto) 0.2 % (0.0-1.8) 07/27/16 05:08 Lymph # 1.6 K/mm3 (1.2-5.4) 07/27/16 05:08 [place] # 1.4 K/mm3 (0.0-0.8) H 07/27/16 05:08 Eos # 0.1 K/mm3 (0.0-0.4) 07/27/16 05:08 Baso # 0.0 K/mm3 (0.0-0.1) 07/27/16 05:08 Add Manual Diff Complete 07/26/16 08:30 Total Counted 100 07/26/16 08:30 Seg Neutrophils % 80.0 % (40.0-70.0) H 07/27/16 05:08 Seg Neuts % (Manual) 89.0 % (40.0-70.0) H 07/26/16 08:30 Band Neutrophils % 0 % 07/26/16 08:30 Lymphocytes % (Manual) 6.0 % (13.4-35.0) L 07/26/16 08:30 Reactive Lymphs % (Man) 0 % 07/26/16 08:30 Monocytes % (Manual) 5.0 % (0.0-7.3) 07/26/16 08:30 Eosinophils % (Manual) 0 % (0.0-4.3) 07/26/16 08:30 Basophils % (Manual) 0 % (0.0-1.8) 07/26/16 08:30 Metamyelocytes % 0 % 07/26/16 08:30 Myelocytes % 0 % 07/26/16 08:30 Promyelocytes % 0 % 07/26/16 08:30 Blast Cells % 0 % 07/26/16 08:30 Nucleated RBC % Not Reportable 07/26/16 08:30 Seg Neutrophils # 12.7 K/mm3 (1.8-7.7) H 07/27/16 05:08 Seg Neutrophils # Man 21.8 K/mm3 (1.8-7.7) H 07/26/16 08:30 Band Neutrophils # 0.0 K/mm3 07/26/16 08:30 Lymphocytes # (Manual) 1.5 K/mm3 (1.2-5.4) 07/26/16 08:30 Abs React Lymphs (Man) 0.0 K/mm3 07/26/16 08:30 Monocytes # (Manual) 1.2 K/mm3 (0.0-0.8) H 07/26/16 08:30 Eosinophils # (Manual) 0.0 K/mm3 (0.0-0.4) 07/26/16 08:30 Basophils # (Manual) 0.0 K/mm3 (0.0-0.1) 07/26/16 08:30 Metamyelocytes # 0.0 K/mm3 07/26/16 08:30 Myelocytes # 0.0 K/mm3 07/26/16 08:30 Promyelocytes # 0.0 K/mm3 07/26/16 08:30 Blast Cells # 0.0 K/mm3 07/26/16 08:30 WBC Morphology Not Reportable 07/26/16 08:30 Hypersegmented Neuts Not Reportable 07/26/16 08:30 Hyposegmented Neuts Not Reportable 07/26/16 08:30 Hypogranular Neuts Not Reportable 07/26/16 08:30 Smudge Cells Not Reportable 07/26/16 08:30 Toxic Granulation Not Reportable 07/26/16 08:30 Toxic Vacuolation Not Reportable 07/26/16 08:30 Dohle Bodies Not Reportable 07/26/16 08:30 Pelger-Huet Anomaly Not Reportable 07/26/16 08:30 Margot Rods Not Reportable 07/26/16 08:30 Platelet Estimate Appears normal 07/26/16 08:30 Clumped Platelets Not Reportable 07/26/16 08:30 Plt Clumps, EDTA Not Reportable 07/26/16 08:30 Large Platelets Not Reportable 07/26/16 08:30 Giant Platelets Not Reportable 07/26/16 08:30 Platelet Satelliting Not Reportable 07/26/16 08:30 Plt Morphology Comment Not Reportable 07/26/16 08:30 RBC Morphology Not Reportable 07/26/16 08:30 Dimorphic RBCs Not Reportable 07/26/16 08:30 Polychromasia Not Reportable 07/26/16 08:30 Hypochromasia 1+ 07/26/16 08:30 Poikilocytosis Not Reportable 07/26/16 08:30 Anisocytosis Not Reportable 07/26/16 08:30 Microcytosis Not Reportable 07/26/16 08:30 Macrocytosis Not Reportable 07/26/16 08:30 Spherocytes Not Reportable 07/26/16 08:30 Pappenheimer Bodies Not Reportable 07/26/16 08:30 Sickle Cells Not Reportable 07/26/16 08:30 Target Cells Not Reportable 07/26/16 08:30 Tear Drop Cells Not Reportable 07/26/16 08:30 Ovalocytes Not Reportable 07/26/16 08:30 Helmet Cells Not Reportable 07/26/16 08:30 Orellana-[place] Bodies Not Reportable 07/26/16 08:30 [place] Rings Not Reportable 07/26/16 08:30 [place] Cells Not Reportable 07/26/16 08:30 Bite Cells Not Reportable 07/26/16 08:30 Crenated Cell Not Reportable 07/26/16 08:30 Elliptocytes Not Reportable 07/26/16 08:30 Acanthocytes (Spur) Not Reportable 07/26/16 08:30 Rouleaux Not Reportable 07/26/16 08:30 Hemoglobin C Crystals Not Reportable 07/26/16 08:30 Schistocytes Not Reportable 07/26/16 08:30 Malaria parasites Not Reportable 07/26/16 08:30 ESR > 140.0 mm/Hr (0-20) 07/26/16 15:30 Roberto Bodies Not Reportable 07/26/16 08:30 Hem Pathologist Commnt No 07/26/16 08:30 PT 15.0 Sec. (12.2-14.9) H 07/26/16 08:48 INR 1.19 (0.87-1.13) H 07/26/16 08:48 APTT 26.8 Sec. (24.2-36.6) 07/26/16 08:48 Sodium 135 mmol/L (137-145) L 07/30/16 05:36 Potassium 4.0 mmol/L (3.6-5.0) 07/30/16 05:36 Chloride 96.3 mmol/L (98-107) L 07/30/16 05:36 Carbon Dioxide 24 mmol/L (22-30) 07/30/16 05:36 Anion Gap 19 mmol/L 07/30/16 05:36 BUN 40 mg/dL (7-17) H 07/30/16 05:36 Creatinine 3.5 mg/dL (0.7-1.2) H 07/30/16 05:36 Estimated GFR 13 ml/min 07/30/16 05:36 BUN/Creatinine Ratio 11.42 % 07/30/16 05:36 Glucose 182 mg/dL (65-100) H 07/30/16 05:36 POC Glucose 178 (70-105) H 07/30/16 06:59 Lactic Acid 1.6 mmol/L (0.7-2.0) 07/26/16 13:25 Calcium 7.8 mg/dL (8.4-10.2) L 07/30/16 05:36 Phosphorus 4.0 mg/dL (2.5-4.5) 07/28/16 08:12 Magnesium 1.9 mg/dL (1.7-2.3) 07/26/16 08:48 Iron 19 ug/dL (37-170) L 07/28/16 08:12 TIBC 109.20 mcg/dL (250-450) L 07/28/16 08:12 Transferrin 78 mg/dl (192-382) L 07/28/16 08:12 Ferritin 1606.0 ng/mL (13.0-400.0) H 07/28/16 08:12 Total Creatine Kinase 112 units/L (30-135) 07/26/16 08:48 CK-MB (CK-2) 4.3 ng/mL (0.0-4.0) H 07/26/16 08:48 CK-MB (CK-2) Rel Index 3.8 (0-4) 07/26/16 08:48 Troponin T 0.404 ng/mL (0.00-0.029) H* 07/26/16 08:04 C-Reactive Protein 28.60 mg/dL (0.00-1.30) H 07/26/16 08:48 Triglycerides 103 mg/dL (2-149) 07/26/16 08:04 Cholesterol 174 mg/dL (50-199) 07/26/16 08:04 LDL Cholesterol Direct 81 mg/dL (50-130) 07/26/16 08:04 HDL Cholesterol 73 mg/dL (40-59) H 07/26/16 08:04 Cholesterol/HDL Ratio 2.38 % 07/26/16 08:04 Urine Color Yellow (Yellow) 07/26/16 10:16 Urine Turbidity Clear (Clear) 07/26/16 10:16 Urine pH 6.0 (5.0-7.0) 07/26/16 10:16 Ur Specific [place] 1.010 (1.003-1.030) 07/26/16 10:16 Urine Protein >500 mg/dL (Negative) 07/26/16 10:16 Urine Glucose (UA) >=500 mg/dL (Negative) 07/26/16 10:16 Urine Ketones Tr mg/dL (Negative) 07/26/16 10:16 Urine Blood Neg (Negative) 07/26/16 10:16 Urine Nitrite Neg (Negative) 07/26/16 10:16 Urine Bilirubin Neg (Negative) 07/26/16 10:16 Urine Urobilinogen < 2.0 mg/dL (<2.0) 07/26/16 10:16 Ur Leukocyte Esterase Neg (Negative) 07/26/16 10:16 Urine WBC (Auto) 1.0 /HPF (0.0-6.0) 07/26/16 10:16 Urine RBC (Auto) 2.0 /HPF (0.0-6.0) 07/26/16 10:16 Urine Mucus Few /HPF 07/26/16 10:16 Blood Type O POSITIVE 07/28/16 12:36 Antibody Screen Negative 07/28/16 12:36 Crossmatch See Detail 07/28/16 12:36
--- NOTE | 2016-07-30 09:58 | Progress Note ---
Assessment and Plan 1. Persistent nausea and vomiting 2. Chronic kidney disease stage IV 3. Elevated serum troponin levels probably related to chronic renal disease 4. Type II diabetes mellitus 5. Right diabetic foot ulcer 6. Essential hypertension 7. Hyperlipidemia 8. Abnormal Echocardiogram with wall motion abnormalities consistent with coronary artery disease. Plan. Patient is currently stable will continue present management. Lexiscan MPI would be done before discharge to rule out ischemic coronary artery disease. Subjective Date of service: 07/30/16 Principal diagnosis: severe renal failure Interval history: No cardiac symptoms. Objective Vital Signs Temp Pulse Pulse Resp BP BP Pulse Ox 07/30/16 08:55 98.3 F 82 16 179/76 100 07/30/16 04:45 98.4 F 83 172/76 07/29/16 23:10 100.0 F H 80 20 175/77 100 07/29/16 20:15 88 20 07/29/16 17:05 99 F 82 18 187/74 100 07/29/16 15:22 88 141/66 - Physical Examination General: Appears Well, No Apparent Distress, Other (obese) HEENT: Positive: PERRL Neck: Positive: neck supple. Negative: JVD/HJR Cardiac: Positive: Regular Rate, S1/S2, PMI, Laterally Displaced Lungs: Positive: clear to auscultation, No Wheeze, Rales, Rhonchi Abdomen: Positive: Unremarkable, Soft Skin: Positive: Clear Extremities: Absent: edema - Labs and Meds CBC 07/30/16 Range/Units 05:36 WBC 10.9 (4.5-11.0) K/mm3 RBC 3.45 L (3.65-5.03) M/mm3 Hgb 9.1 L (10.1-14.3) gm/dl Hct 28.2 L (30.3-42.9) % Plt Count 295 (140-440) K/mm3 Comprehensive Metabolic Panel 07/30/16 Range/Units 05:36 Sodium 135 L (137-145) mmol/L Potassium 4.0 (3.6-5.0) mmol/L Chloride 96.3 L (98-107) mmol/L Carbon Dioxide 24 (22-30) mmol/L BUN 40 H (7-17) mg/dL Creatinine 3.5 H (0.7-1.2) mg/dL Glucose 182 H (65-100) mg/dL Calcium 7.8 L (8.4-10.2) mg/dL
[2016-07-30] MEDS: LOPRESSOR PO SCH ×2 (10:05→22:47)
[2016-07-30] MEDS: PROTONIX IV SCH (10:05)
[2016-07-30] MEDS: TRENTAL PO SCH ×2 (10:05→22:50)
[2016-07-30] MEDS: ROCEPHIN/NS 1 GM/50 ML 1 GM/50 ML BAG IV SCH (10:11)
--- NOTE | 2016-07-30 17:12 | Progress Note ---
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 Family at beside, updated on renal plan Objective - Vital Signs Vital signs: Vital Signs - 12hr 07/30/16 07/30/16 08:55 10:05 Temperature 98.3 F Pulse Rate [ 82 Left Radial] Respiratory 16 Rate Blood Pressure 149/67 Blood Pressure 179/76 [Left Arm] O2 Sat by Pulse 100 Oximetry - General Appearance General appearance: well-developed (no acute distress) EENT: ATNC Neck: no JVD Respiratory: Present: Clear to Ascultation Cardiology: regular, S1S2 Gastrointestinal: normoactive bowel sounds, no tenderness Integumentary: ulcer (right heel ulcer) Neurologic: alert and oriented x3 Musculoskeletal: other (trace edema to both lower extremities) Psychiatric: mood/affect appropriate, cooperative - Lab 07/30/16 05:36 07/30/16 05:36 Most recent lab results Calcium 7.8 mg/dL (8.4-10.2) L 07/30/16 05:36 Phosphorus 4.0 mg/dL (2.5-4.5) 07/28/16 08:12 Magnesium 1.9 mg/dL (1.7-2.3) 07/26/16 08:48
[2016-07-30] MEDS: BACTROBAN 2% TP SCH ×2 (19:47→22:50)
--- NOTE | 2016-07-30 20:09 | Consultation ---
History of Present Illness - Reason for Consult Consult date: 07/30/16 sepsis/right foot osteomyelitis Requesting physician: VICTOR MANUEL RIOS - History of Present Illness This is a 61-year-old woman with a past medical history of hypertension and CHF EF of 45%, obesity, diabetes, who presents who has a known history of right heel chronic ulcer which if followed by Dr Ann (Podiatry), for which she gets [id number] unna boot, and has been on abx recently, her daughter states that wound was healing and about to scab over. She presents now with 3-4 days of fevers and chills, weakness, lightheadedness, cough productive of frothy thin white sputum, nausea and vomiting, worsening bipedal edema and noticed that her right lower extremities more swollen than normal, tenderness and redness of the lower half of her leg, her daughter even bought her some OTC diuretics yesterday to try to help the swelling, with minimal relief, . She also admits, intermittent dull chest pain, lasting 5-10 minutes, no radiation, no exacerbating or relieving factors, admits 2 pillow orthopnea. MRI of the foot is indicative of calcaneal osteomyelitis with frragmentation of the calcaneum hence infectious disease consult for appropriate management. Patient seen at bedside. She is unable to provide history but patient`s daughter provided history. Past History Past Medical History: diabetes, heart failure (systolic, EF 45), hypertension, renal failure (chronic, BL creatinine of 4), other (obese) Past Surgical History: Social history: no significant social history Family history: no significant family history PHYSICAL EXAM. Vs - afebrile. chest - good air entry cvs - s1s2 abd - obese extremities - 4cm x cm area of discoloration and fluctuant to touch. LABS See report of MRI. Per report, there is osteomyelitis of the right calcaneal bone with fragmentation of the bone. ASSESSMENT 1. RIGHT CALCANEAL OSTEOMYELITIS WITH FRAGMENTATION OF THE BONE. 2. POSSIBLE ABSCESS OF THE RIGHT HEEL. 3. MORBID OBESITY 4. DM2 5. RENAL FAILURE. RECOMMENDATION 1. Continue ceftriaxone. 2. Patient will need probably a bka. 3. Discussed with Dr. Ann. Drainage done and sample sent for culture. Bactroban applied to wound 4. ESR/CRP 5. Will follow. Past History Past Medical History: diabetes, heart failure (systolic, EF 45), hypertension, renal failure (chronic, BL creatinine of 4), other (obese) Past Surgical History: Social history: no significant social history Family history: no significant family history Medications and Allergies Allergies Allergy/AdvReac Type Severity Reaction Status Date / Time codeine Allergy Hives Verified 07/26/16 07:29 morphine Allergy confusion Verified 07/26/16 07:29 Penicillins Allergy Hives Verified 07/26/16 07:29 Home Medications Medication Instructions Recorded Confirmed Last Taken Type Insulin NPH/Regular [NovoLIN 70/30] 15 unit SQ BIDDIAB 04/27/15 07/26/16 08:00 History Metoprolol [Lopressor TAB] 50 mg PO BID 04/27/15 07/26/16 07/25/16 History Pentoxifylline [TRENtal] 400 mg PO BID 04/27/15 07/26/16 07/25/16 History Pravastatin Sodium [Pravastatin] 20 mg PO QHS 04/27/15 07/26/16 06/24/16 21:00 History glipiZIDE [Glucotrol] 10 mg PO BID 04/27/15 07/26/16 07/25/16 History traMADol [Ultram] 50 mg PO Q6HR PRN #30 tablet 07/04/16 07/26/16 Unknown Rx Otc Water Pill From [facility] 07/26/16 07/25/16 History Medicine Active Meds: Active Medications Acetaminophen (Tylenol) 650 mg PO Q4H PRN PRN Reason: Pain MILD(1-3)/Fever >100.5/MACK Last Admin: 07/30/16 00:24 Dose: 650 mg Bisacodyl (Dulcolax) 10 mg MD QDAY PRN PRN Reason: Constipation unrelieved by MOM Dextrose (D50w (25gm)) 50 ml IV PRN PRN PRN Reason: Hypoglycemia Heparin Sodium (Porcine) (Heparin) 5,000 unit SUB-Q Q8HR [facility] Last Admin: 07/30/16 14:56 Dose: 5,000 unit Ceftriaxone Sodium (Rocephin/Ns 1 Gm/50 Ml) 1 gm in 50 mls @ 100 mls/hr IV Q24H [facility] PRN Reason: Protocol Last Admin: 07/30/16 10:11 Dose: 100 mls/hr Insulin Aspart (Novolog) 0 units SUB-Q ACHS [facility] PRN Reason: Protocol Last Admin: 07/30/16 18:22 Dose: 3 units Insulin Human Isoph/Insulin Regular (Novolin 70/30) 15 unit SUB-Q BIDDIAB [facility] Last Admin: 07/30/16 18:21 Dose: 15 unit Magnesium Hydroxide (Milk Of Magnesia) 30 ml PO Q4H PRN PRN Reason: Constipation Metoclopramide HCl (Reglan) 10 mg IV Q6H PRN PRN Reason: Nausea And Vomiting Last Admin: 07/30/16 06:09 Dose: 10 mg Metoprolol Tartrate (Lopressor) 50 mg PO BID [facility] Last Admin: 07/30/16 10:05 Dose: 50 mg Mupirocin (Bactroban 2%) 1 applic TP BID [facility] Last Admin: 07/30/16 19:47 Dose: 1 applic Ondansetron HCl (Zofran) 4 mg IV Q4H PRN PRN Reason: N/V unrelieved by Reglan Last Admin: 07/29/16 05:16 Dose: 4 mg Pantoprazole Sodium (Protonix) 40 mg IV QDAY [facility] Last Admin: 07/30/16 10:05 Dose: 40 mg Pentoxifylline (Trental) 400 mg PO BID [facility] Last Admin: 07/30/16 10:05 Dose: 400 mg Simvastatin (Zocor) 10 mg PO QHS [facility] Last Admin: 07/29/16 22:29 Dose: 10 mg Tramadol HCl (Ultram) 50 mg PO Q6HR PRN PRN Reason: Pain Physical Examination - Constitutional Vitals: Vital Signs Temp Pulse Resp BP Pulse Ox 98.1 F 83 20 175/71 100 07/30/16 16:45 07/30/16 16:45 07/30/16 16:45 07/30/16 16:45 07/30/16 10:00 Temperature -Last 24 Hours Temperature 98.1 F Temperature 98.3 F Temperature 98.4 F Temperature 100.0 F Results - Labs CBC & Chem 7: 07/30/16 05:36 07/30/16 05:36 Labs: Abnormal lab results 07/29/16 07/29/16 07/30/16 Range/Units 15:56 21:44 05:36 RBC 3.45 L (3.65-5.03) M/mm3 Hgb 9.1 L (10.1-14.3) gm/dl Hct 28.2 L (30.3-42.9) % MCH 27 L (28-32) pg RDW 16.0 H (13.2-15.2) % Sodium (137-145) mmol/L Chloride (98-107) mmol/L BUN (7-17) mg/dL Creatinine (0.7-1.2) mg/dL Glucose (65-100) mg/dL POC Glucose 143 H 140 H (70-105) Calcium (8.4-10.2) mg/dL 07/30/16 07/30/16 07/30/16 Range/Units 05:36 06:59 11:28 RBC (3.65-5.03) M/mm3 Hgb (10.1-14.3) gm/dl Hct (30.3-42.9) % MCH (28-32) pg RDW (13.2-15.2) % Sodium 135 L (137-145) mmol/L Chloride 96.3 L (98-107) mmol/L BUN 40 H (7-17) mg/dL Creatinine 3.5 H (0.7-1.2) mg/dL Glucose 182 H (65-100) mg/dL POC Glucose 178 H 255 H (70-105) Calcium 7.8 L (8.4-10.2) mg/dL 07/30/16 Range/Units 17:07 RBC (3.65-5.03) M/mm3 Hgb (10.1-14.3) gm/dl Hct (30.3-42.9) % MCH (28-32) pg RDW (13.2-15.2) % Sodium (137-145) mmol/L Chloride (98-107) mmol/L BUN (7-17) mg/dL Creatinine (0.7-1.2) mg/dL Glucose (65-100) mg/dL POC Glucose 256 H (70-105) Calcium (8.4-10.2) mg/dL
[2016-07-30] MEDS: ZOCOR PO SCH (22:48)
[2016-07-31] MEDS: HEPARIN SUB-Q SCH ×3 (06:15→22:38)
[2016-07-31 06:16] LABS: Basophils % (Auto) 0.9 % (0.0-1.8); Eosinophils % (Auto) 1.7 % (0.0-4.3); Hematocrit 28.8 % (30.3-42.9); Hemoglobin 9.2 gm/dl (10.1-14.3); Mean Corpuscular HGB Conc 32 % (30-34); Mean Corpuscular Volume 81 fl (79-97); Platelet Count 309 K/mm3 (140-440); Red Blood Count 3.54 M/mm3 (3.65-5.03); Red Cell Distribution Width 16.8 % (13.2-15.2); White Blood Count 12.8 K/mm3 (4.5-11.0)
[2016-07-31 06:22] LABS: Mean Corpuscular Hemoglobin 26 pg (28-32)
[2016-07-31 06:35] LABS: BUN/Creatinine Ratio 10.57; Chloride 98.3 mmol/L (98-107)
[2016-07-31] MEDS: NOVOLOG SUB-Q SCH ×4 (09:04→23:33)
[2016-07-31] MEDS ORDERED: LEXISCAN IV ONE ×2 (10:22→10:26)
--- NOTE | 2016-07-31 11:25 | Progress Note ---
Assessment and Plan (1) Acute kidney injury superimposed on CKD Current Visit: Yes Status: Acute Plan to address problem: stable kidney function, non oliguric Hyponatremia- continue fluid restriction of 1 liter per day Renally dose medications Obtain daily weight Strict intake and output (2) Anemia Current Visit: No Status: Acute Qualifiers: Anemia type: A Iron deficiency anemia type: I Vitamin B12 deficiency anemia type: V Folate deficiency anemia type: F Bone marrow failure anemia type: B Hemolytic anemia type: H Other causes of anemia: O Plan to address problem: Monitor CBC daily Subjective Date of service: 07/31/16 Principal diagnosis: severe renal failure Interval history: patient was not in the room this AM Objective - Vital Signs Vital signs: Vital Signs - 12hr 07/31/16 07/31/16 00:00 08:00 Temperature 98.1 F 97.1 F L Pulse Rate [ 90 Left Radial] Pulse Rate [ 87 Right] Respiratory 20 20 Rate Blood Pressure 112/59 [Left Arm] Blood Pressure 176/78 [Right Arm] O2 Sat by Pulse 98 100 Oximetry - Lab 07/31/16 05:53 07/31/16 05:53 Most recent lab results Calcium 8.0 mg/dL (8.4-10.2) L 07/31/16 05:53 Phosphorus 4.0 mg/dL (2.5-4.5) 07/28/16 08:12 Magnesium 1.9 mg/dL (1.7-2.3) 07/26/16 08:48
--- NOTE | 2016-07-31 14:03 | Progress Note ---
Assessment and Plan Assessment and plan: 1. Sepsis 2/2 RLE cellulitis/osteomyelitis. Resolving. continue sepsis pathway, blood cultures are negative. 2. Calcaneal osteomyelitis. Continue IV antibiotics. ID believes the patient may need BKA. 3. Anemia of CKD s/p 1 unit PRBCs. H&H stable. 4. CKD stage 4 stable, creatinine at baseline, avoid nephrotoxic agents. Nephrology following 5. NSTEMI -CAD She was recently admitted and seen by cardiology who had recommended only medical management (last month, she had Echo which showed regional wall motion abnormalities, but has not had recent stress test or cath) Lexiscan completed this morning and results are pending. 6. Acute exacerbation of systolic CHF. Resolved. Continued IV lasix as needed, optimize meds 7. DM continue basal and bolus insulins, and SSI, FS glucose qac and hs 8. Hyponatremia likely 2/2 to fluid overload, should improve with diuresis 9. N/V. Resolved. KUB negative. Etiology may be secondary to #1. ? Diabetic gastroparesis. Continue Reglan. History Interval history: This is a 61 year old female with PMH of chronic kidney disease stage 5, hypertension, diabetes mellitus type 2 insulin dependent, and congestive heart failure (EF 45%) who presented to [facility] with complaints of fever, chills, nausea , vomiting, fatigue, chest pain, productive cough with white sputum, bilateral lower extremity edema, chronic right heel ulcer (followed by Dr Ann- [facility]), and pain to right lower extremity. This morning patient complains of nausea and vomiting. is at the bedside. Hospitalist Physical - Constitutional Vitals: Temp Pulse Resp BP Pulse Ox 97.1 F L 87 20 176/78 100 07/31/16 08:00 07/31/16 08:00 07/31/16 08:00 07/31/16 08:00 07/31/16 08:00 General appearance: Present: no acute distress Results - Labs CBC & Chem 7: 07/31/16 05:53 07/31/16 05:53 Labs: Laboratory Last Values WBC 12.8 K/mm3 (4.5-11.0) H 07/31/16 05:53 RBC 3.54 M/mm3 (3.65-5.03) L 07/31/16 05:53 Hgb 9.2 gm/dl (10.1-14.3) L 07/31/16 05:53 Hct 28.8 % (30.3-42.9) L 07/31/16 05:53 MCV 81 fl (79-97) 07/31/16 05:53 MCH 26 pg (28-32) L 07/31/16 05:53 MCHC 32 % (30-34) 07/31/16 05:53 RDW 16.8 % (13.2-15.2) H 07/31/16 05:53 Plt Count 309 K/mm3 (140-440) 07/31/16 05:53 Lymph % (Auto) 14.4 % (13.4-35.0) 07/31/16 05:53 Christian % (Auto) 9.4 % (0.0-7.3) H 07/31/16 05:53 Eos % (Auto) 1.7 % (0.0-4.3) 07/31/16 05:53 Baso % (Auto) 0.9 % (0.0-1.8) 07/31/16 05:53 Lymph # 1.8 K/mm3 (1.2-5.4) 07/31/16 05:53 Christian # 1.2 K/mm3 (0.0-0.8) H 07/31/16 05:53 Eos # 0.2 K/mm3 (0.0-0.4) 07/31/16 05:53 Baso # 0.1 K/mm3 (0.0-0.1) 07/31/16 05:53 Add Manual Diff Complete 07/26/16 08:30 Total Counted 100 07/26/16 08:30 Seg Neutrophils % 73.6 % (40.0-70.0) H 07/31/16 05:53 Seg Neuts % (Manual) 89.0 % (40.0-70.0) H 07/26/16 08:30 Band Neutrophils % 0 % 07/26/16 08:30 Lymphocytes % (Manual) 6.0 % (13.4-35.0) L 07/26/16 08:30 Reactive Lymphs % (Man) 0 % 07/26/16 08:30 Monocytes % (Manual) 5.0 % (0.0-7.3) 07/26/16 08:30 Eosinophils % (Manual) 0 % (0.0-4.3) 07/26/16 08:30 Basophils % (Manual) 0 % (0.0-1.8) 07/26/16 08:30 Metamyelocytes % 0 % 07/26/16 08:30 Myelocytes % 0 % 07/26/16 08:30 Promyelocytes % 0 % 07/26/16 08:30 Blast Cells % 0 % 07/26/16 08:30 Nucleated RBC % Not Reportable 07/26/16 08:30 Seg Neutrophils # 9.4 K/mm3 (1.8-7.7) H 07/31/16 05:53 Seg Neutrophils # Man 21.8 K/mm3 (1.8-7.7) H 07/26/16 08:30 Band Neutrophils # 0.0 K/mm3 07/26/16 08:30 Lymphocytes # (Manual) 1.5 K/mm3 (1.2-5.4) 07/26/16 08:30 Abs React Lymphs (Man) 0.0 K/mm3 07/26/16 08:30 Monocytes # (Manual) 1.2 K/mm3 (0.0-0.8) H 07/26/16 08:30 Eosinophils # (Manual) 0.0 K/mm3 (0.0-0.4) 07/26/16 08:30 Basophils # (Manual) 0.0 K/mm3 (0.0-0.1) 07/26/16 08:30 Metamyelocytes # 0.0 K/mm3 07/26/16 08:30 Myelocytes # 0.0 K/mm3 07/26/16 08:30 Promyelocytes # 0.0 K/mm3 07/26/16 08:30 Blast Cells # 0.0 K/mm3 07/26/16 08:30 WBC Morphology Not Reportable 07/26/16 08:30 Hypersegmented Neuts Not Reportable 07/26/16 08:30 Hyposegmented Neuts Not Reportable 07/26/16 08:30 Hypogranular Neuts Not Reportable 07/26/16 08:30 Smudge Cells Not Reportable 07/26/16 08:30 Toxic Granulation Not Reportable 07/26/16 08:30 Toxic Vacuolation Not Reportable 07/26/16 08:30 Dohle Bodies Not Reportable 07/26/16 08:30 Pelger-Huet Anomaly Not Reportable 07/26/16 08:30 Margot Rods Not Reportable 07/26/16 08:30 Platelet Estimate Appears normal 07/26/16 08:30 Clumped Platelets Not Reportable 07/26/16 08:30 Plt Clumps, EDTA Not Reportable 07/26/16 08:30 Large Platelets Not Reportable 07/26/16 08:30 Giant Platelets Not Reportable 07/26/16 08:30 Platelet Satelliting Not Reportable 07/26/16 08:30 Plt Morphology Comment Not Reportable 07/26/16 08:30 RBC Morphology Not Reportable 07/26/16 08:30 Dimorphic RBCs Not Reportable 07/26/16 08:30 Polychromasia Not Reportable 07/26/16 08:30 Hypochromasia 1+ 07/26/16 08:30 Poikilocytosis Not Reportable 07/26/16 08:30 Anisocytosis Not Reportable 07/26/16 08:30 Microcytosis Not Reportable 07/26/16 08:30 Macrocytosis Not Reportable 07/26/16 08:30 Spherocytes Not Reportable 07/26/16 08:30 Pappenheimer Bodies Not Reportable 07/26/16 08:30 Sickle Cells Not Reportable 07/26/16 08:30 Target Cells Not Reportable 07/26/16 08:30 Tear Drop Cells Not Reportable 07/26/16 08:30 Ovalocytes Not Reportable 07/26/16 08:30 Helmet Cells Not Reportable 07/26/16 08:30 Orellana-Hyder Bodies Not Reportable 07/26/16 08:30 Poyen Rings Not Reportable 07/26/16 08:30 Jose Cells Not Reportable 07/26/16 08:30 Bite Cells Not Reportable 07/26/16 08:30 Crenated Cell Not Reportable 07/26/16 08:30 Elliptocytes Not Reportable 07/26/16 08:30 Acanthocytes (Spur) Not Reportable 07/26/16 08:30 Rouleaux Not Reportable 07/26/16 08:30 Hemoglobin C Crystals Not Reportable 07/26/16 08:30 Schistocytes Not Reportable 07/26/16 08:30 Malaria parasites Not Reportable 07/26/16 08:30 ESR > 140.0 mm/Hr (0-20) 07/30/16 21:15 Roberto Bodies Not Reportable 07/26/16 08:30 Hem Pathologist Commnt No 07/26/16 08:30 PT 15.0 Sec. (12.2-14.9) H 07/26/16 08:48 INR 1.19 (0.87-1.13) H 07/26/16 08:48 APTT 26.8 Sec. (24.2-36.6) 07/26/16 08:48 Sodium 133 mmol/L (137-145) L 07/31/16 05:53 Potassium 4.0 mmol/L (3.6-5.0) 07/31/16 05:53 Chloride 98.3 mmol/L (98-107) 07/31/16 05:53 Carbon Dioxide 25 mmol/L (22-30) 07/31/16 05:53 Anion Gap 14 mmol/L 07/31/16 05:53 BUN 37 mg/dL (7-17) H 07/31/16 05:53 Creatinine 3.5 mg/dL (0.7-1.2) H 07/31/16 05:53 Estimated GFR 13 ml/min 07/31/16 05:53 BUN/Creatinine Ratio 10.57 % 07/31/16 05:53 Glucose 152 mg/dL (65-100) H 07/31/16 05:53 POC Glucose 147 (70-105) H 07/31/16 12:29 Lactic Acid 1.6 mmol/L (0.7-2.0) 07/26/16 13:25 Calcium 8.0 mg/dL (8.4-10.2) L 07/31/16 05:53 Phosphorus 4.0 mg/dL (2.5-4.5) 07/28/16 08:12 Magnesium 1.9 mg/dL (1.7-2.3) 07/26/16 08:48 Iron 19 ug/dL (37-170) L 07/28/16 08:12 TIBC 109.20 mcg/dL (250-450) L 07/28/16 08:12 Transferrin 78 mg/dl (192-382) L 07/28/16 08:12 Ferritin 1606.0 ng/mL (13.0-400.0) H 07/28/16 08:12 Total Creatine Kinase 112 units/L (30-135) 07/26/16 08:48 CK-MB (CK-2) 4.3 ng/mL (0.0-4.0) H 07/26/16 08:48 CK-MB (CK-2) Rel Index 3.8 (0-4) 07/26/16 08:48 Troponin T 0.404 ng/mL (0.00-0.029) H* 07/26/16 08:04 C-Reactive Protein 19.80 mg/dL (0.00-1.30) H 07/30/16 21:15 Triglycerides 103 mg/dL (2-149) 07/26/16 08:04 Cholesterol 174 mg/dL (50-199) 07/26/16 08:04 LDL Cholesterol Direct 81 mg/dL (50-130) 07/26/16 08:04 HDL Cholesterol 73 mg/dL (40-59) H 07/26/16 08:04 Cholesterol/HDL Ratio 2.38 % 07/26/16 08:04 Urine Color Yellow (Yellow) 07/26/16 10:16 Urine Turbidity Clear (Clear) 07/26/16 10:16 Urine pH 6.0 (5.0-7.0) 07/26/16 10:16 Ur Specific [place] 1.010 (1.003-1.030) 07/26/16 10:16 Urine Protein >500 mg/dL (Negative) 07/26/16 10:16 Urine Glucose (UA) >=500 mg/dL (Negative) 07/26/16 10:16 Urine Ketones Tr mg/dL (Negative) 07/26/16 10:16 Urine Blood Neg (Negative) 07/26/16 10:16 Urine Nitrite Neg (Negative) 07/26/16 10:16 Urine Bilirubin Neg (Negative) 07/26/16 10:16 Urine Urobilinogen < 2.0 mg/dL (<2.0) 07/26/16 10:16 Ur Leukocyte Esterase Neg (Negative) 07/26/16 10:16 Urine WBC (Auto) 1.0 /HPF (0.0-6.0) 07/26/16 10:16 Urine RBC (Auto) 2.0 /HPF (0.0-6.0) 07/26/16 10:16 Urine Mucus Few /HPF 07/26/16 10:16 Blood Type O POSITIVE 07/28/16 12:36 Antibody Screen Negative 07/28/16 12:36 Crossmatch See Detail 07/28/16 12:36
[2016-07-31] MEDS: LOPRESSOR PO SCH ×2 (17:48→22:36)
[2016-07-31] MEDS: PROTONIX IV SCH (17:49)
[2016-07-31] MEDS: ROCEPHIN/NS 1 GM/50 ML 1 GM/50 ML BAG IV SCH (17:49)
[2016-07-31] MEDS: TRENTAL PO SCH (17:50)
[2016-07-31] MEDS: BACTROBAN 2% TP SCH ×2 (18:34→22:37)
--- NOTE | 2016-07-31 19:24 | Progress Note ---
Assessment and Plan - Patient Problems (1) Coronary artery disease Current Visit: Yes Status: Acute Qualifiers: Coronary Disease-Associated Artery/Lesion type: C [place] vs. transplanted heart: N Associated angina: A Plan to address problem: Patient has asymptomatic coronary artery disease, with ejection fraction 45% on echocardiogram last month, and a fixed anteroapical defect on thallium stress test during this presentation. Due to multiple comorbidities and the absence of angina, we'll as you a conservative approach, treat coronary artery disease medically and with aggressive risk factor modification. Subjective Date of service: 07/31/16 Principal diagnosis: severe renal failure Interval history: Patient underwent a Persantine thallium stress test, which revealed a moderate- sized fixed anteroapical defect. No significant reversible ischemia was demonstrated. Objective Vital Signs Temp Pulse Pulse Pulse Resp BP BP 07/31/16 17:48 87 165/76 07/31/16 16:30 98.4 F 87 16 07/31/16 08:00 97.1 F L 87 20 07/31/16 00:00 98.1 F 90 20 112/59 07/30/16 22:47 94 H 131/60 07/30/16 20:52 98.3 F 83 18 125/68 07/30/16 19:53 BP Pulse Ox 07/31/16 17:48 07/31/16 16:30 155/76 98 07/31/16 08:00 176/78 100 07/31/16 00:00 98 07/30/16 22:47 07/30/16 20:52 97 07/30/16 19:53 96 - Physical Examination General: No Apparent Distress, Other (obese) HEENT: Positive: PERRL Neck: Positive: neck supple. Negative: JVD/HJR Cardiac: Positive: Reg Rate and Rhythm Lungs: Positive: Decreased Breath Sounds Neuro: Positive: Grossly Intact Abdomen: Positive: Soft, Active Bowel Sounds Skin: Positive: Clear Extremities: Absent: edema - Labs and Meds CBC 07/31/16 Range/Units 05:53 WBC 12.8 H (4.5-11.0) K/mm3 RBC 3.54 L (3.65-5.03) M/mm3 Hgb 9.2 L (10.1-14.3) gm/dl Hct 28.8 L (30.3-42.9) % Plt Count 309 (140-440) K/mm3 Lymph # 1.8 (1.2-5.4) K/mm3 [place] # 1.2 H (0.0-0.8) K/mm3 Eos # 0.2 (0.0-0.4) K/mm3 Baso # 0.1 (0.0-0.1) K/mm3 Comprehensive Metabolic Panel 07/31/16 Range/Units 05:53 Sodium 133 L (137-145) mmol/L Potassium 4.0 (3.6-5.0) mmol/L Chloride 98.3 (98-107) mmol/L Carbon Dioxide 25 (22-30) mmol/L BUN 37 H (7-17) mg/dL Creatinine 3.5 H (0.7-1.2) mg/dL Glucose 152 H (65-100) mg/dL Calcium 8.0 L (8.4-10.2) mg/dL
--- NOTE | 2016-07-31 19:50 | Progress Note ---
Subjective Date of service: 07/31/16 Principal diagnosis: severe renal failure Interval history: No new issues today. HYSICAL EXAM. Vs - afebrile. chest - good air entry cvs - s1s2 abd - obese extremities - 4cm x cm area of discoloration and fluctuant to touch. LABS See report of MRI. Per report, there is osteomyelitis of the right calcaneal bone with fragmentation of the bone. ASSESSMENT 1. RIGHT CALCANEAL OSTEOMYELITIS WITH FRAGMENTATION OF THE BONE. 2. POSSIBLE ABSCESS OF THE RIGHT HEEL. 3. MORBID OBESITY 4. DM2 5. RENAL FAILURE. RECOMMENDATION 1. Continue ceftriaxone. 2. Patient will need probably a bka. 3. Discussed with Dr. Ann. Drainage done and sample sent for culture. Bactroban applied to wound Objective - Constitutional Vitals: Vital Signs Temp Pulse Resp BP Pulse Ox 98.4 F 87 16 165/76 98 07/31/16 16:30 07/31/16 17:48 07/31/16 16:30 07/31/16 17:48 07/31/16 16:30 Temperature -Last 24 Hours Temperature 98.4 F Temperature 97.1 F Temperature 98.1 F Temperature 98.3 F - Labs CBC & Chem 7: 07/31/16 05:53 07/31/16 05:53 Labs: Abnormal lab results 07/30/16 07/30/16 07/31/16 Range/Units 21:15 22:04 05:53 WBC 12.8 H (4.5-11.0) K/mm3 RBC 3.54 L (3.65-5.03) M/mm3 Hgb 9.2 L (10.1-14.3) gm/dl Hct 28.8 L (30.3-42.9) % MCH 26 L (28-32) pg RDW 16.8 H (13.2-15.2) % Davison % (Auto) 9.4 H (0.0-7.3) % Davison # 1.2 H (0.0-0.8) K/mm3 Seg Neutrophils % 73.6 H (40.0-70.0) % Seg Neutrophils # 9.4 H (1.8-7.7) K/mm3 Sodium (137-145) mmol/L BUN (7-17) mg/dL Creatinine (0.7-1.2) mg/dL Glucose (65-100) mg/dL POC Glucose 223 H (70-105) Calcium (8.4-10.2) mg/dL C-Reactive Protein 19.80 H (0.00-1.30) mg/dL 07/31/16 07/31/16 07/31/16 Range/Units 05:53 06:27 12:29 WBC (4.5-11.0) K/mm3 RBC (3.65-5.03) M/mm3 Hgb (10.1-14.3) gm/dl Hct (30.3-42.9) % MCH (28-32) pg RDW (13.2-15.2) % Davison % (Auto) (0.0-7.3) % [place]ison # (0.0-0.8) K/mm3 Seg Neutrophils % (40.0-70.0) % Seg Neutrophils # (1.8-7.7) K/mm3 Sodium 133 L (137-145) mmol/L BUN 37 H (7-17) mg/dL Creatinine 3.5 H (0.7-1.2) mg/dL Glucose 152 H (65-100) mg/dL POC Glucose 153 H 147 H (70-105) Calcium 8.0 L (8.4-10.2) mg/dL C-Reactive Protein (0.00-1.30) mg/dL 07/31/16 Range/Units 16:18 WBC (4.5-11.0) K/mm3 RBC (3.65-5.03) M/mm3 Hgb (10.1-14.3) gm/dl Hct (30.3-42.9) % MCH (28-32) pg RDW (13.2-15.2) % Davison % (Auto) (0.0-7.3) % [place] # (0.0-0.8) K/mm3 Seg Neutrophils % (40.0-70.0) % Seg Neutrophils # (1.8-7.7) K/mm3 Sodium (137-145) mmol/L BUN (7-17) mg/dL Creatinine (0.7-1.2) mg/dL Glucose (65-100) mg/dL POC Glucose 215 H (70-105) Calcium (8.4-10.2) mg/dL C-Reactive Protein (0.00-1.30) mg/dL
--- NOTE | 2016-07-31 21:38 | Treadmill Report ---
THALLIUM STRESS TEST LEFT VENTRICLE: Left ventricle is mildly dilated. Perfusion study demonstrates a moderate sized, fixed anterior apical defect. On the resting study, there is no significant reversibility. Gated analysis suggests severe left ventricular systolic dysfunction with ejection fraction calculated at 29%. CONCLUSION: Evidence of a prior infarct in the distal anterior and apical wall, with no significant reversible periinfarct ischemia. Clinical correlation is recommended. [facility]# [id number] CA/NTS
[2016-07-31] MEDS: ZOCOR PO SCH (22:36)
[2016-08-01] MEDS: TRENTAL PO SCH ×3 (01:12→22:13)
--- NOTE | 2016-08-01 02:04 | Consultation ---
HISTORY OF PRESENT ILLNESS: ____. The patient is a non-Greenlandic speaking female. The patient had daughter and son present apparently. Chart reviewed, labs noted. Upon inspection of the wound, physical examination reveals warm foot with callus tissue at the plantar aspect of the foot and warm to touch with erythema noted. Reviewed MRI results, which revealed fragmented calcaneal bone. Upon palpation, there appears to be mobility of the calcaneus within the tissue. At this time, the foot was then squeezed. There was noted to be mild drainage at the affected medial aspect of the foot and plantarly. Therefore, with the assistance of the 11 blade, the area was lanced 0.3 cm. Incision was thus made. The foot was then squeezed. It was noted to be at least 50 mL of purulent drainage, discharge from both plantar aspect of the callus tissue and the medial aspect, which was lanced. No odor present, but significant drainage present. Cultures were taken. Area was dressed with Bacitracin ointment and dry dressing. ASSESSMENT: At this time, assessment is osteomyelitis, right heel. PLAN: After discussing treatment and treatment options with the daughter, son and mother, recommended consultation with infectious disease doctor in regards to 6-8 weeks of antibiotics. Prognosis revealed to the patient and family members is fair due to the disintegration of the calcaneal bone. At this time, the patient will be recommended strict nonweightbearing and will have further discussion with infectious disease physician for other viable options. [facility]# [id number] FRANKIE/CHIDI
--- NOTE | 2016-08-01 02:13 | Consultation ---
HISTORY OF PRESENT ILLNESS: The patient was visited at bedside. The patient had ____ present, different from the siblings that were present on yesterday. The patient appeared to be resting well. Dressings were intact. No ____ present. Chart reviewed. At this time, I spoke with infectious disease doctor last night. He got opportunity to review the MRI report and in MRI, we both came to the conclusion that ultimately the patient may need a below knee amputation. However, siblings and the patient would like more conservative treatment possibly 6-8 weeks of IV antibiotics, but no guarantees were given. The patient given fair to poor prognosis. The patient was also emphasized nonweightbearing and will possibly order a wheelchair and Aircast boot. However, the patient is not to place weight on the affected area. We will wait for further directions from infectious disease physician. However, do not anticipate any aggressive procedure at this time due to the fragmentation of the calcaneal bone and the patient's current condition. JOB# [id number] FRANKIE/CHIDI
[2016-08-01] MEDS: HEPARIN SUB-Q SCH ×3 (06:52→22:12)
[2016-08-01] MEDS: ULTRAM PO PRN (06:52)
[2016-08-01 07:32] LABS: Chloride 100.9 mmol/L (98-107); Potassium 4.4 mmol/L (3.6-5.0)
[2016-08-01 07:57] LABS: Hematocrit 27.6 % (30.3-42.9); Hemoglobin 8.7 gm/dl (10.1-14.3); Mean Corpuscular HGB Conc 32 % (30-34); Mean Corpuscular Hemoglobin 26 pg (28-32); Mean Corpuscular Volume 83 fl (79-97); Platelet Count 293 K/mm3 (140-440); Red Blood Count 3.34 M/mm3 (3.65-5.03); Red Cell Distribution Width 17.1 % (13.2-15.2); White Blood Count 11.2 K/mm3 (4.5-11.0)
[2016-08-01] MEDS: NOVOLOG SUB-Q SCH ×4 (08:00→23:34)
[2016-08-01] MEDS ORDERED: REGLAN IV PRN (08:22)
--- NOTE | 2016-08-01 09:14 | Progress Note ---
Assessment and Plan Chronic renal failure Volume depletion Nausea vomiting Hyponatremia -resolved Chest pain fixed anteroapical defect on thallium stress test this admission Severe Anemia Diabetes Hypertension Hyperlipidemia Diabetic Rt heel ulcer Elevated troponin, chronic An echocardiogram done 06/2016 reports a preserved left ventricle systolic function, but there are regional wall motion abnormalities at the apex, suggesting the presence of underlying coronary artery disease. Recommend: Due to multiple comorbidities we will pursue a conservative cardiac management. Medical therapy and risk factor modifications recommended for underlying coronary artery disease. Subjective Date of service: 08/01/16 Principal diagnosis: severe renal failure Interval history: She is resting in bed comfortably. No cardiac events reported overnight. Objective Vital Signs Temp Pulse Pulse Pulse Resp BP BP 08/01/16 07:09 97.5 F L 90 81 14 112/59 08/01/16 07:05 97.3 F L 81 14 08/01/16 01:11 98.6 F 76 20 07/31/16 20:00 98.4 F 82 20 07/31/16 17:48 87 165/76 07/31/16 16:30 98.4 F 87 16 BP Pulse Ox 08/01/16 07:09 166/72 97 08/01/16 07:05 166/72 97 08/01/16 01:11 137/63 98 07/31/16 20:00 163/77 07/31/16 17:48 07/31/16 16:30 155/76 98 - Physical Examination General: No Apparent Distress, Other (obese) HEENT: Positive: PERRL Neck: Positive: trachea midline. Negative: JVD/HJR Cardiac: Positive: Reg Rate and Rhythm - Labs and Meds CBC 08/01/16 Range/Units 06:52 WBC 11.2 H (4.5-11.0) K/mm3 RBC 3.34 L (3.65-5.03) M/mm3 Hgb 8.7 L (10.1-14.3) gm/dl Hct 27.6 L (30.3-42.9) % Plt Count 293 (140-440) K/mm3 Comprehensive Metabolic Panel 08/01/16 Range/Units 06:52 Sodium 135 L (137-145) mmol/L Potassium 4.4 (3.6-5.0) mmol/L Chloride 100.9 (98-107) mmol/L Carbon Dioxide 22 (22-30) mmol/L BUN 36 H (7-17) mg/dL Creatinine 3.6 H (0.7-1.2) mg/dL Glucose 246 H (65-100) mg/dL Calcium 8.0 L (8.4-10.2) mg/dL
--- NOTE | 2016-08-01 09:51 | Progress Note ---
Assessment and Plan (1) Acute kidney injury superimposed on CKD Current Visit: Yes Status: Acute Plan to address problem: no significant change in Cr, good UOP Hyponatremia- improving, continue fluid restriction of 1 liter per day Renally dose medications Obtain daily weight Strict intake and output (2) Anemia Current Visit: No Status: Acute Qualifiers: Anemia type: A Iron deficiency anemia type: I Vitamin B12 deficiency anemia type: V Folate deficiency anemia type: F Bone marrow failure anemia type: B Hemolytic anemia type: H Other causes of anemia: O Plan to address problem: transfuse as needed will sign off, patient can follow with our office upon discharge, please re consult as needed. Subjective Date of service: 08/01/16 Principal diagnosis: severe renal failure Interval history: with mild nausea this AM Objective - Vital Signs Vital signs: Vital Signs - 12hr 08/01/16 08/01/16 08/01/16 01:11 07:05 07:09 Temperature 98.6 F 97.3 F L 97.5 F L Pulse Rate [ 90 Left Radial] Pulse Rate [ 76 81 81 Right] Respiratory 20 14 14 Rate Blood Pressure 112/59 [Left Arm] Blood Pressure 137/63 166/72 166/72 [Right Arm] O2 Sat by Pulse 98 97 97 Oximetry - General Appearance General appearance: obese EENT: ATNC, PERRL Neck: no JVD, no carotid bruit Respiratory: Present: Decreased Breath Sounds Cardiology: regular, S1S2 Gastrointestinal: normoactive bowel sounds, no tenderness, no distended, obese Integumentary: no rash, warm and dry Neurologic: no focal deficit, no asterixis, alert and oriented x3 Musculoskeletal: other (trace pitting edema in BLE) Psychiatric: cooperative - Lab 08/01/16 06:52 08/01/16 06:52 Most recent lab results Calcium 8.0 mg/dL (8.4-10.2) L 08/01/16 06:52 Phosphorus 4.0 mg/dL (2.5-4.5) 07/28/16 08:12 Magnesium 1.9 mg/dL (1.7-2.3) 07/26/16 08:48
[2016-08-01] MEDS: PROTONIX PO SCH (10:38)
[2016-08-01] MEDS: LOPRESSOR PO SCH ×2 (10:38→22:15)
[2016-08-01] MEDS: BACTROBAN 2% TP SCH ×2 (10:39→23:34)
[2016-08-01] MEDS: ROCEPHIN/NS 1 GM/50 ML 1 GM/50 ML BAG IV SCH (10:41)
[2016-08-01] MEDS: ZOFRAN IV PRN (15:45)
--- NOTE | 2016-08-01 16:21 | Progress Note ---
Assessment and Plan Assessment and plan: MR RLE Right heel OM- with bony destruction Sp bedside Right heel debridement by Dr Ann 07/31/16 61F w pmh of htn, chf, obesity, DM, Chronic R heel ulcer who presented with fever, weakness, fatigue, generalized edema and increase RLE swelling, pain and erythema 1. Sepsis 2/2 RLE cellulitis and Right heel Osteomylitis Infectious diseases input appreciated, patient has chronic osteomyelitis with destruction of bone, this infection is unlikely to clear up without surgery/ amputation. Will consults orthopedic surgery, continue antibiotics, continue wound care 2. Anemia of CD Chronic, continue to monitor 3. CKD stage 4 stable, creatinine at baseline, avoid nephrotoxic agents Nephrology input appreciated 4. NSTEMI -CAD Chest pain is now resolved, of note she had a stress test that showed fixed lesions, but did not show any reversible ischemic changes., Continue medical management, cardiology input appreciated 6. Acute exacerbation of systolic CHF Continue current meds, diuretics to be given only as needed given CKD 7. DM continue basal and bolus insulins, and SSI, FS glucose qac and hs 8. Nausea vomiting and dysphagia Speech and swallow eval give anti-emetics, supportive care -Obtain gastric emptying study -speech and swallow eval Discussed with patient and her son at bedside History Interval history: Complaining of nausea and vomiting daily, dysphasia to solids. Continues to have right heel pain which is somewhat improved. Hospitalist Physical - Physical exam Narrative exam: General: Patient appears well in no distress, obese HEENT: MMM, EOMI cardiac: S1-S2 heard lungs: clear to auscultation, abdomen: soft, nontender, nondistended bowel sounds positive extremities: , R heel ulcer- will good granulation tissue, no odor or drainage, poor distal pulses in RLE Skin: no rash Neuro: no focal deficit Psych: appropriate behavior and mood, cognition intact - Constitutional Vitals: Temp Pulse Resp BP Pulse Ox 98.1 F 73 14 185/74 99 08/01/16 14:57 08/01/16 14:57 08/01/16 14:57 08/01/16 14:57 08/01/16 14:57 General appearance: Present: no acute distress Results - Labs CBC & Chem 7: 08/01/16 06:52 08/01/16 06:52 Labs: Laboratory Last Values WBC 11.2 K/mm3 (4.5-11.0) H 08/01/16 06:52 RBC 3.34 M/mm3 (3.65-5.03) L 08/01/16 06:52 Hgb 8.7 gm/dl (10.1-14.3) L 08/01/16 06:52 Hct 27.6 % (30.3-42.9) L 08/01/16 06:52 MCV 83 fl (79-97) 08/01/16 06:52 MCH 26 pg (28-32) L 08/01/16 06:52 MCHC 32 % (30-34) 08/01/16 06:52 RDW 17.1 % (13.2-15.2) H 08/01/16 06:52 Plt Count 293 K/mm3 (140-440) 08/01/16 06:52 Lymph % (Auto) 14.4 % (13.4-35.0) 07/31/16 05:53 [place]oshone % (Auto) 9.4 % (0.0-7.3) H 07/31/16 05:53 Eos % (Auto) 1.7 % (0.0-4.3) 07/31/16 05:53 Baso % (Auto) 0.9 % (0.0-1.8) 07/31/16 05:53 Lymph # 1.8 K/mm3 (1.2-5.4) 07/31/16 05:53 Shoshone # 1.2 K/mm3 (0.0-0.8) H 07/31/16 05:53 Eos # 0.2 K/mm3 (0.0-0.4) 07/31/16 05:53 Baso # 0.1 K/mm3 (0.0-0.1) 07/31/16 05:53 Add Manual Diff Complete 07/26/16 08:30 Total Counted 100 07/26/16 08:30 Seg Neutrophils % 73.6 % (40.0-70.0) H 07/31/16 05:53 Seg Neuts % (Manual) 89.0 % (40.0-70.0) H 07/26/16 08:30 Band Neutrophils % 0 % 07/26/16 08:30 Lymphocytes % (Manual) 6.0 % (13.4-35.0) L 07/26/16 08:30 Reactive Lymphs % (Man) 0 % 07/26/16 08:30 Monocytes % (Manual) 5.0 % (0.0-7.3) 07/26/16 08:30 Eosinophils % (Manual) 0 % (0.0-4.3) 07/26/16 08:30 Basophils % (Manual) 0 % (0.0-1.8) 07/26/16 08:30 Metamyelocytes % 0 % 07/26/16 08:30 Myelocytes % 0 % 07/26/16 08:30 Promyelocytes % 0 % 07/26/16 08:30 Blast Cells % 0 % 07/26/16 08:30 Nucleated RBC % Not Reportable 07/26/16 08:30 Seg Neutrophils # 9.4 K/mm3 (1.8-7.7) H 07/31/16 05:53 Seg Neutrophils # Man 21.8 K/mm3 (1.8-7.7) H 07/26/16 08:30 Band Neutrophils # 0.0 K/mm3 07/26/16 08:30 Lymphocytes # (Manual) 1.5 K/mm3 (1.2-5.4) 07/26/16 08:30 Abs React Lymphs (Man) 0.0 K/mm3 07/26/16 08:30 Monocytes # (Manual) 1.2 K/mm3 (0.0-0.8) H 07/26/16 08:30 Eosinophils # (Manual) 0.0 K/mm3 (0.0-0.4) 07/26/16 08:30 Basophils # (Manual) 0.0 K/mm3 (0.0-0.1) 07/26/16 08:30 Metamyelocytes # 0.0 K/mm3 07/26/16 08:30 Myelocytes # 0.0 K/mm3 07/26/16 08:30 Promyelocytes # 0.0 K/mm3 07/26/16 08:30 Blast Cells # 0.0 K/mm3 07/26/16 08:30 WBC Morphology Not Reportable 07/26/16 08:30 Hypersegmented Neuts Not Reportable 07/26/16 08:30 Hyposegmented Neuts Not Reportable 07/26/16 08:30 Hypogranular Neuts Not Reportable 07/26/16 08:30 Smudge Cells Not Reportable 07/26/16 08:30 Toxic Granulation Not Reportable 07/26/16 08:30 Toxic Vacuolation Not Reportable 07/26/16 08:30 Dohle Bodies Not Reportable 07/26/16 08:30 Pelger-Huet Anomaly Not Reportable 07/26/16 08:30 Margot Rods Not Reportable 07/26/16 08:30 Platelet Estimate Appears normal 07/26/16 08:30 Clumped Platelets Not Reportable 07/26/16 08:30 Plt Clumps, EDTA Not Reportable 07/26/16 08:30 Large Platelets Not Reportable 07/26/16 08:30 Giant Platelets Not Reportable 07/26/16 08:30 Platelet Satelliting Not Reportable 07/26/16 08:30 Plt Morphology Comment Not Reportable 07/26/16 08:30 RBC Morphology Not Reportable 07/26/16 08:30 Dimorphic RBCs Not Reportable 07/26/16 08:30 Polychromasia Not Reportable 07/26/16 08:30 Hypochromasia 1+ 07/26/16 08:30 Poikilocytosis Not Reportable 07/26/16 08:30 Anisocytosis Not Reportable 07/26/16 08:30 Microcytosis Not Reportable 07/26/16 08:30 Macrocytosis Not Reportable 07/26/16 08:30 Spherocytes Not Reportable 07/26/16 08:30 Pappenheimer Bodies Not Reportable 07/26/16 08:30 Sickle Cells Not Reportable 07/26/16 08:30 Target Cells Not Reportable 07/26/16 08:30 Tear Drop Cells Not Reportable 07/26/16 08:30 Ovalocytes Not Reportable 07/26/16 08:30 Helmet Cells Not Reportable 07/26/16 08:30 Orellana-Keenes Bodies Not Reportable 07/26/16 08:30 [place] Rings Not Reportable 07/26/16 08:30 Jose Cells Not Reportable 07/26/16 08:30 Bite Cells Not Reportable 07/26/16 08:30 Crenated Cell Not Reportable 07/26/16 08:30 Elliptocytes Not Reportable 07/26/16 08:30 Acanthocytes (Spur) Not Reportable 07/26/16 08:30 Rouleaux Not Reportable 07/26/16 08:30 Hemoglobin C Crystals Not Reportable 07/26/16 08:30 Schistocytes Not Reportable 07/26/16 08:30 Malaria parasites Not Reportable 07/26/16 08:30 ESR > 140.0 mm/Hr (0-20) 07/30/16 21:15 Roberto Bodies Not Reportable 07/26/16 08:30 Hem Pathologist Commnt No 07/26/16 08:30 PT 15.0 Sec. (12.2-14.9) H 07/26/16 08:48 INR 1.19 (0.87-1.13) H 07/26/16 08:48 APTT 26.8 Sec. (24.2-36.6) 07/26/16 08:48 Sodium 135 mmol/L (137-145) L 08/01/16 06:52 Potassium 4.4 mmol/L (3.6-5.0) 08/01/16 06:52 Chloride 100.9 mmol/L (98-107) 08/01/16 06:52 Carbon Dioxide 22 mmol/L (22-30) 08/01/16 06:52 Anion Gap 17 mmol/L 08/01/16 06:52 BUN 36 mg/dL (7-17) H 08/01/16 06:52 Creatinine 3.6 mg/dL (0.7-1.2) H 08/01/16 06:52 Estimated GFR 13 ml/min 08/01/16 06:52 BUN/Creatinine Ratio 10.00 % 08/01/16 06:52 Glucose 246 mg/dL (65-100) H 08/01/16 06:52 POC Glucose 184 (70-105) H 08/01/16 11:20 Lactic Acid 1.6 mmol/L (0.7-2.0) 07/26/16 13:25 Calcium 8.0 mg/dL (8.4-10.2) L 08/01/16 06:52 Phosphorus 4.0 mg/dL (2.5-4.5) 07/28/16 08:12 Magnesium 1.9 mg/dL (1.7-2.3) 07/26/16 08:48 Iron 19 ug/dL (37-170) L 07/28/16 08:12 TIBC 109.20 mcg/dL (250-450) L 07/28/16 08:12 Transferrin 78 mg/dl (192-382) L 07/28/16 08:12 Ferritin 1606.0 ng/mL (13.0-400.0) H 07/28/16 08:12 Total Creatine Kinase 112 units/L (30-135) 07/26/16 08:48 CK-MB (CK-2) 4.3 ng/mL (0.0-4.0) H 07/26/16 08:48 CK-MB (CK-2) Rel Index 3.8 (0-4) 07/26/16 08:48 Troponin T 0.404 ng/mL (0.00-0.029) H* 07/26/16 08:04 C-Reactive Protein 19.80 mg/dL (0.00-1.30) H 07/30/16 21:15 Triglycerides 103 mg/dL (2-149) 07/26/16 08:04 Cholesterol 174 mg/dL (50-199) 07/26/16 08:04 LDL Cholesterol Direct 81 mg/dL (50-130) 07/26/16 08:04 HDL Cholesterol 73 mg/dL (40-59) H 07/26/16 08:04 Cholesterol/HDL Ratio 2.38 % 07/26/16 08:04 Urine Color Yellow (Yellow) 07/26/16 10:16 Urine Turbidity Clear (Clear) 07/26/16 10:16 Urine pH 6.0 (5.0-7.0) 07/26/16 10:16 Ur Specific Crosby 1.010 (1.003-1.030) 07/26/16 10:16 Urine Protein >500 mg/dL (Negative) 07/26/16 10:16 Urine Glucose (UA) >=500 mg/dL (Negative) 07/26/16 10:16 Urine Ketones Tr mg/dL (Negative) 07/26/16 10:16 Urine Blood Neg (Negative) 07/26/16 10:16 Urine Nitrite Neg (Negative) 07/26/16 10:16 Urine Bilirubin Neg (Negative) 07/26/16 10:16 Urine Urobilinogen < 2.0 mg/dL (<2.0) 07/26/16 10:16 Ur Leukocyte Esterase Neg (Negative) 07/26/16 10:16 Urine WBC (Auto) 1.0 /HPF (0.0-6.0) 07/26/16 10:16 Urine RBC (Auto) 2.0 /HPF (0.0-6.0) 07/26/16 10:16 Urine Mucus Few /HPF 07/26/16 10:16 Blood Type O POSITIVE 07/28/16 12:36 Antibody Screen Negative 07/28/16 12:36 Crossmatch See Detail 07/28/16 12:36
[2016-08-01] MEDS ORDERED: COMPAZINE IV PRN (16:22)
[2016-08-01] MEDS: REGLAN IV SCH ×2 (18:39→23:05)
--- NOTE | 2016-08-01 18:48 | Progress Note ---
Subjective Date of service: 08/01/16 Principal diagnosis: severe renal failure Interval history: No new issues today. HYSICAL EXAM. Vs - afebrile. chest - good air entry cvs - s1s2 abd - obese extremities - 4cm x cm area of discoloration and fluctuant to touch. LABS See report of MRI. Per report, there is osteomyelitis of the right calcaneal bone with fragmentation of the bone. ASSESSMENT 1. RIGHT CALCANEAL OSTEOMYELITIS WITH FRAGMENTATION OF THE BONE. 2. POSSIBLE ABSCESS OF THE RIGHT HEEL. 3. MORBID OBESITY 4. DM2 5. RENAL FAILURE. RECOMMENDATION D/c planning on oral augmentin 500mg daily for 2months if not allergic to penicillin. If allergy is confirmed, then may use oral clindamycin 600mg every 8hourly for 2months. Patient will probably need longer use of oral antibiotics to suppress the infection. The ideal would have been bka but for now, patient is hesitating on surgery. OUT PATIENT FOLLOW UP WITH PMD. Objective - Constitutional Vitals: Vital Signs Temp Pulse Resp BP Pulse Ox 98.1 F 73 14 185/74 99 08/01/16 14:57 08/01/16 14:57 08/01/16 14:57 08/01/16 14:57 08/01/16 14:57 Temperature -Last 24 Hours Temperature 98.1 F Temperature 97.5 F Temperature 97.3 F Temperature 98.6 F Temperature 98.4 F - Labs CBC & Chem 7: 08/01/16 06:52 08/01/16 06:52 Labs: Abnormal lab results 07/31/16 08/01/16 08/01/16 Range/Units 23:02 06:28 06:52 WBC 11.2 H (4.5-11.0) K/mm3 RBC 3.34 L (3.65-5.03) M/mm3 Hgb 8.7 L (10.1-14.3) gm/dl Hct 27.6 L (30.3-42.9) % MCH 26 L (28-32) pg RDW 17.1 H (13.2-15.2) % Sodium (137-145) mmol/L BUN (7-17) mg/dL Creatinine (0.7-1.2) mg/dL Glucose (65-100) mg/dL POC Glucose 190 H 259 H (70-105) Calcium (8.4-10.2) mg/dL 08/01/16 08/01/16 08/01/16 Range/Units 06:52 11:20 16:31 WBC (4.5-11.0) K/mm3 RBC (3.65-5.03) M/mm3 Hgb (10.1-14.3) gm/dl Hct (30.3-42.9) % MCH (28-32) pg RDW (13.2-15.2) % Sodium 135 L (137-145) mmol/L BUN 36 H (7-17) mg/dL Creatinine 3.6 H (0.7-1.2) mg/dL Glucose 246 H (65-100) mg/dL POC Glucose 184 H 125 H (70-105) Calcium 8.0 L (8.4-10.2) mg/dL
[2016-08-01] MEDS: ZOCOR PO SCH (22:13)
[2016-08-02 06:39] LABS: Hematocrit 29.1 % (30.3-42.9); Hemoglobin 9.3 gm/dl (10.1-14.3); Mean Corpuscular HGB Conc 32 % (30-34); Mean Corpuscular Hemoglobin 26 pg (28-32); Mean Corpuscular Volume 82 fl (79-97); Platelet Count 326 K/mm3 (140-440); Red Blood Count 3.54 M/mm3 (3.65-5.03); Red Cell Distribution Width 16.8 % (13.2-15.2); White Blood Count 10.8 K/mm3 (4.5-11.0)
--- NOTE | 2016-08-02 09:22 | XRay Report ---
Right foot: There is inhomogeneous osteolysis of the calcaneus. The talocalcaneal joint space is collapsed. The inferior margin of the tail as may also demonstrate ostial lysis but difficult to clearly assess. There is mild narrowing of the talocalcaneal joint space. The articular margins however appear to be intact. There is an ulcer on the plantar surface just below the anterior calcaneus with severe swelling of the soft tissues around the proximal and mid foot. Impressions: Osteomyelitis of the calcaneus and possible involvement of the inferior talus.
[2016-08-02] MEDS: NOVOLOG SUB-Q SCH ×2 (09:49→11:30)
--- NOTE | 2016-08-02 10:44 | Progress Note ---
Assessment and Plan Chronic renal failure Volume depletion Nausea vomiting Hyponatremia -resolved Chest pain fixed anteroapical defect on thallium stress test this admission Severe Anemia Diabetes Hypertension Hyperlipidemia Diabetic Rt heel ulcer Elevated troponin, chronic An echocardiogram done 06/2016 reports a preserved left ventricle systolic function, but there are regional wall motion abnormalities at the apex, suggesting the presence of underlying coronary artery disease. Recommend: Conservative cardiac management. Medical therapy and risk factor modifications recommended for underlying coronary artery disease. Subjective Date of service: 08/02/16 Principal diagnosis: severe renal failure Interval history: She is resting in bed comfortably. No cardiac events reported overnight. Objective Vital Signs Temp Pulse Pulse Pulse Resp BP BP 08/02/16 08:14 98.5 F 77 22 164/71 08/01/16 23:15 98.4 F 73 20 144/66 08/01/16 22:15 68 08/01/16 14:57 98.1 F 73 14 185/74 Pulse Ox 08/02/16 08:14 100 08/01/16 23:15 08/01/16 22:15 08/01/16 14:57 99 - Physical Examination General: No Apparent Distress, Other (obese) Cardiac: Positive: Reg Rate and Rhythm - Labs and Meds CBC 08/02/16 Range/Units 05:49 WBC 10.8 (4.5-11.0) K/mm3 RBC 3.54 L (3.65-5.03) M/mm3 Hgb 9.3 L (10.1-14.3) gm/dl Hct 29.1 L (30.3-42.9) % Plt Count 326 (140-440) K/mm3
--- NOTE | 2016-08-02 12:34 | Nuclear Medicine Report ---
NUCLEAR MEDICINE GASTRIC EMPTYING SCAN History: Nausea and vomiting, diabetes. Findings: Anterior abdominal images were obtained for 90 minutes following 1 mCi of technetium 99m sulfur colloid in oatmeal. Half life for gastric emptying measures 22 minutes. There is no scintigraphic evidence for reflux disease. Impression: Normal gastric emptying.
[2016-08-02] MEDS: ROCEPHIN/NS 1 GM/50 ML 1 GM/50 ML BAG IV SCH (13:17)
[2016-08-02] MEDS: LOPRESSOR PO SCH (13:18)
[2016-08-02] MEDS: PROTONIX PO SCH (13:19)
[2016-08-02] MEDS: TRENTAL PO SCH (13:23)
[2016-08-02] MEDS: BACTROBAN 2% TP SCH (13:23)
[2016-08-02] MEDS: REGLAN IV SCH (13:24)
[2016-08-02] MEDS: HEPARIN SUB-Q SCH (13:24)
--- NOTE | 2016-08-02 14:40 | Discharge Summary ---
Providers - Providers Date of Admission: 07/26/16 12:11 Attending physician: FATOU MADISON MD 07/26/16 13:20 Consult to Physician [CONS] Routine Consulting Provider: RADHA KOCH Reason For Exam: nstemi Place consult to:: vasu Notified:: overhead paged Was contact made?: Yes If yes, spoke with:: vasu Time called:: 15:51 07/26/16 13:24 Consult to Physician [CONS] Routine Consulting Provider: GALLITO ANN Reason For Exam: Right foot ulcer/cellulitis Place consult to:: DR. ANN Notified:: OFFICE Phone number called:: Was contact made?: Yes If yes, spoke with:: JUDY Time called:: 16:23 07/26/16 13:29 Consult to Physician [CONS] Routine Consulting Provider: TELLO MALCOLM Reason For Exam: CKD Place consult to:: DR. suarez Notified:: office Phone number called:: Was contact made?: Yes If yes, spoke with:: nurys Time called:: 16:37 07/27/16 12:55 Consult to Physician [CONS] Routine Consulting Provider: JANNA LEGER Reason For Exam: CKD Place consult to:: DR. LEUNG Notified:: DR. LEUNG Phone number called:: [phone] Was contact made?: Yes If yes, spoke with:: DR. LEUNG Time called:: 13:30 Comment:: PAT NOTIFIED 07/30/16 09:13 Consult to Physician [CONS] Routine Consulting Provider: LOUIS DELACRUZ Reason For Exam: osteo Place consult to:: dr. delacruz Notified:: answering service Phone number called:: Was contact made?: Yes If yes, spoke with:: chelsea Time called:: 10:56 08/01/16 14:04 Consult to Physician [CONS] Routine Consulting Provider: RAJ CORONA V Reason For Exam: Right heel osteomylitis Place consult to:: DR CORONA Notified:: DR CORONA Phone number called:: [phone] Was contact made?: Yes If yes, spoke with:: MADIHA 08/01/16 16:27 Speech Therapy Evaluation and Treat [CONS] Routine Reason For Exam: dysphagia Primary care physician: [employer] Hospitalization Condition: Critical Hospital course: MR MARCELLE Right heel OM- with bony destruction Sp bedside Right heel debridement by Dr Ann 07/31/16 61F w pmh of htn, chf, obesity, DM, Chronic R heel ulcer who presented with fever, weakness, fatigue, generalized edema and increase RLE swelling, pain and erythema 1. Sepsis 2/2 RLE cellulitis and Right heel Osteomylitis Infectious diseases input appreciated, patient has chronic osteomyelitis with destruction of bone, this infection is unlikely to clear up without surgery/ amputation. Will consults orthopedic surgery, continue antibiotics, continue wound care 2. Anemia of CD Chronic, continue to monitor 3. CKD stage 4 stable, creatinine at baseline, avoid nephrotoxic agents Nephrology input appreciated 4. NSTEMI -CAD Chest pain is now resolved, of note she had a stress test that showed fixed lesions, but did not show any reversible ischemic changes., Continue medical management, cardiology input appreciated 6. Acute exacerbation of systolic CHF Continue current meds, diuretics to be given only as needed given CKD 7. DM continue basal and bolus insulins, and SSI, FS glucose qac and hs 8. Nausea vomiting and dysphagia Speech and swallow eval give anti-emetics, supportive care -Obtain gastric emptying study -speech and swallow eval Discussed with patient and her son at bedside Disposition: DC/TX HOME UNDER HOME HEALTH Time spent for discharge: 35 minutes Core Measure Documentation - Palliative Care Palliative Care/ Comfort Measures: Not Applicable - Core Measures Any of the following diagnoses?: heart failure - Heart Failure Discharge Requirements BARBER/ARB for LVSD if EF <40%: Not Applicable Beta madyson at discharge: Yes Exam - Physical Exam Narrative exam: General: Patient appears well in no distress, obese HEENT: MMM, EOMI cardiac: S1-S2 heard lungs: clear to auscultation, abdomen: soft, nontender, nondistended bowel sounds positive extremities: , R heel ulcer- will good granulation tissue, no odor or drainage, poor distal pulses in RLE Skin: no rash Neuro: no focal deficit Psych: appropriate behavior and mood, cognition intact - Constitutional Vitals: Temp Pulse Resp BP Pulse Ox 98.6 F 77 20 191/82 100 08/02/16 12:54 03/15/17 13:18 08/02/16 12:54 08/02/16 13:18 08/02/16 08:14 Plan Follow up with: TRACEE ALBRIGHT MD [Primary Care Provider] - 3-5 Days DEBORAH CATALAN MD [Staff Physician] - 7 Days RAJ CORONA MD [Staff Physician] - 7 Days Prescriptions: RX: Clindamycin [Clindamycin CAP] 300 mg PO Q8H 60 Days RX: Pantoprazole [Protonix TAB] 40 mg PO DAILY #30 tablet RX: traMADol [Ultram 50 MG tab] 50 mg PO Q6HR PRN #30 tablet PRN Reason: Pain Furosemide [Lasix TAB] 40 mg PO Q72HR PRN #10 tablet PRN Reason: Edema
[2016-08-02 15:46] VITALS: BP 143/64
--- NOTE | 2016-08-02 17:22 | Consultation ---
History of Present Illness - [facility] Consult date: 08/02/16 Consult reason: other (right heel ulcer) History of present illness: This is a 61-year-old woman with a past medical history of hypertension and CHF EF of 45%, obesity, diabetes, who presents who has a known history of right heel chronic ulcer which if followed by Dr Ann (Podiatry), for which she gets [id number] unna boot, and has been on abx recently, her daughter states that wound was healing and about to scab over. The patient was worked up with plain x-rays and MRI scan of the right foot which revealed findings consistent with chronic osteomyelitis of the calcaneus Past History Past Medical History: diabetes, heart failure (systolic, EF 45), hypertension, renal failure (chronic, BL creatinine of 4), other (obese) Past Surgical History: Social history: no significant social history Family history: no significant family history Medications and Allergies Allergies Allergy/AdvReac Type Severity Reaction Status Date / Time codeine Allergy Hives Verified 07/26/16 07:29 morphine Allergy confusion Verified 07/26/16 07:29 Penicillins Allergy Hives Verified 07/26/16 07:29 Home Medications Medication Instructions Recorded Confirmed Last Taken Type Insulin NPH/Regular [NovoLIN 70/30] 15 unit SQ BIDDIAB 04/27/15 07/26/16 08:00 History Metoprolol [Lopressor TAB] 50 mg PO BID 04/27/15 07/26/16 07/25/16 History Pentoxifylline [TRENtal] 400 mg PO BID 04/27/15 07/26/16 07/25/16 History Pravastatin Sodium [Pravastatin] 20 mg PO QHS 04/27/15 07/26/16 06/24/16 21:00 History glipiZIDE [Glucotrol] 10 mg PO BID 04/27/15 07/26/16 07/25/16 History Clindamycin [Clindamycin CAP] 300 mg PO Q8H 60 Days 08/02/16 Unknown Rx Furosemide [Lasix TAB] 40 mg PO Q72HR PRN #10 tablet 08/02/16 Unknown Rx Pantoprazole [Protonix TAB] 40 mg PO DAILY #30 tablet 08/02/16 Unknown Rx traMADol [Ultram 50 MG tab] 50 mg PO Q6HR PRN #30 tablet 08/02/16 Unknown Rx Active Meds: Active Medications Acetaminophen (Tylenol) 650 mg PO Q4H PRN PRN Reason: Pain MILD(1-3)/Fever >100.5/MACK Last Admin: 07/30/16 00:24 Dose: 650 mg Bisacodyl (Dulcolax) 10 mg [place] QDAY PRN PRN Reason: Constipation unrelieved by MOM Dextrose (D50w (25gm)) 50 ml IV PRN PRN PRN Reason: Hypoglycemia Heparin Sodium (Porcine) (Heparin) 5,000 unit SUB-Q Q8HR [facility] Last Admin: 08/02/16 13:24 Dose: 5,000 unit Ceftriaxone Sodium (Rocephin/Ns 1 Gm/50 Ml) 1 gm in 50 mls @ 100 mls/hr IV Q24H [facility] PRN Reason: Protocol Last Admin: 08/02/16 13:17 Dose: 100 mls/hr Insulin Aspart (Novolog) 0 units SUB-Q ACHS [facility] PRN Reason: Protocol Last Admin: 08/02/16 09:49 Dose: 1 units Insulin Human Isoph/Insulin Regular (Novolin 70/30) 15 unit SUB-Q BIDDIAB [facility] Last Admin: 08/02/16 09:50 Dose: 15 unit Magnesium Hydroxide (Milk Of Magnesia) 30 ml PO Q4H PRN PRN Reason: Constipation Metoclopramide HCl (Reglan) 10 mg IV Q6H [facility] Stop: 08/04/16 16:59 Last Admin: 08/02/16 13:24 Dose: 10 mg Metoprolol Tartrate (Lopressor) 50 mg PO BID [facility] Last Admin: 08/02/16 13:18 Dose: 50 mg Mupirocin (Bactroban 2%) 1 applic TP BID [facility] Last Admin: 08/02/16 13:23 Dose: 1 applic Ondansetron HCl (Zofran) 4 mg IV Q4H PRN PRN Reason: N/V unrelieved by Reglan Last Admin: 08/01/16 15:45 Dose: 4 mg Pantoprazole Sodium (Protonix) 40 mg PO DAILY [facility] Last Admin: 08/02/16 13:19 Dose: 40 mg Pentoxifylline (Trental) 400 mg PO BID [facility] Last Admin: 08/02/16 13:23 Dose: 400 mg Prochlorperazine Edisylate (Compazine) 10 mg IV Q4H PRN PRN Reason: Nausea And Vomiting Simvastatin (Zocor) 10 mg PO QHS [facility] Last Admin: 08/01/16 22:13 Dose: 10 mg Tramadol HCl (Ultram) 50 mg PO Q6HR PRN PRN Reason: Pain Last Admin: 08/01/16 06:52 Dose: 50 mg Physical Examination - Physical exam Narrative exam: On the right foot, the patient has a large wound which appears to be reviewed with the underlying calcaneus although no bone is exposed there is minimal surrounding redness or erythema. Assessment and Plan Chronic osteomyelitis right heel, the patient's and son were in the room and were informed of the above findings options include at this point continuing wound care treatments versus amputation. According to the son the patient prefers conservative treatment therefore she will be discharged and will follow up with her recording artist in the very near future
== END 2016-08-02 18:15 | disposition home health service (06) | DRG 871 ==
LOC: ED 07:04 → 3A 12:11
PROVIDERS: ADMIT Internal Medicine; ATTEND Internal Medicine
PROC: 30233N1 Transfusion of Nonautologous Red Blood Cells into Peripheral Vein, Percutaneous Approach (ICD-10-PCS; 2016-07-28)
PROC: 0H9MXZX Drainage of Right Foot Skin, External Approach, Diagnostic (ICD-10-PCS; principal; 2016-07-31)
PROC: 0HDMXZZ Extraction of Right Foot Skin, External Approach (ICD-10-PCS; 2016-07-31)
DX: A41.9 Sepsis, unspecified organism (principal); J96.00 Acute respiratory failure, unspecified whether with hypoxia or hypercapnia; I50.23 Acute on chronic systolic (congestive) heart failure; I21.4 Non-ST elevation (NSTEMI) myocardial infarction; Z68.41 Body mass index [BMI] 40.0-44.9, adult; L03.115 Cellulitis of right lower limb; E87.1 Hypo-osmolality and hyponatremia; L97.419 Non-pressure chronic ulcer of right heel and midfoot with unspecified severity; I13.2 Hypertensive heart and chronic kidney disease with heart failure and with stage 5 chronic kidney disease, or end stage renal disease; N18.5 Chronic kidney disease, stage 5; M86.171 Other acute osteomyelitis, right ankle and foot; D62 Acute posthemorrhagic anemia; N17.9 Acute kidney failure, unspecified; E11.9 Type 2 diabetes mellitus without complications; Z87.01 Personal history of pneumonia (recurrent); Z88.0 Allergy status to penicillin; Z88.5 Allergy status to narcotic agent; J45.909 Unspecified asthma, uncomplicated; E78.00 Pure hypercholesterolemia, unspecified; E66.01 Morbid (severe) obesity due to excess calories; D63.8 Anemia in other chronic diseases classified elsewhere; I25.10 Atherosclerotic heart disease of native coronary artery without angina pectoris; E11.622 Type 2 diabetes mellitus with other skin ulcer; I73.9 Peripheral vascular disease, unspecified; E78.5 Hyperlipidemia, unspecified; E86.9 Volume depletion, unspecified; E11.69 Type 2 diabetes mellitus with other specified complication; R13.10 Dysphagia, unspecified; E11.51 Type 2 diabetes mellitus with diabetic peripheral angiopathy without gangrene
CPT/HCPCS: 36415; 51702; 71010; 74000; 78264; 78452; 80048; 80061; 81001; 82140; 82550; 82553; 82728; 82962; 83550; 83735; 84100; 84466; 84484; 85007; 85025; 85027; 85610; 85652; 85730; 86140; 86850; 86900; 86901; 86920; 87040; 87116; 93005; 93010; 93017; 96365; 96366; 96368; 96375; A9502; A9541; C9113; J0360; J0696; J1644; J1815; J1885; J1940; J2405; J2765; J2785; J3370; J7030; J7040; J7070; P9016; Q0162

== ENCOUNTER 2016-12-08 08:23 | Outpatient (CLI) | payer OTHER ==
[2016-12-08 09:07] LABS: Albumin 2.6 g/dL (3.9-5); Albumin/Globulin Ratio 0.8 %; BUN/Creatinine Ratio 14.23; Bilirubin,Total 0.2 mg/dL (0.1-1.2); Calcium 8.4 mg/dL (8.4-10.2); Potassium 5.2 mmol/L (3.6-5.0)
== END 2016-12-08 08:24 | disposition home or self-care (01) ==
LOC: LAB 08:23
PROVIDERS: ATTEND Internal Medicine
DX: E11.65 Type 2 diabetes mellitus with hyperglycemia (principal); I11.0 Hypertensive heart disease with heart failure; I50.9 Heart failure, unspecified; J18.9 Pneumonia, unspecified organism; D64.9 Anemia, unspecified; I25.10 Atherosclerotic heart disease of native coronary artery without angina pectoris; Z79.899 Other long term (current) drug therapy
CPT/HCPCS: 36415; 80053

== ENCOUNTER 2017-03-18 16:33 | Inpatient (IN) | payer OTHER ==
[2017-03-18 17:26] LABS: Basophils % (Auto) 0.8 % (0.0-1.8); Eosinophils % (Auto) 1.7 % (0.0-4.3); Hematocrit 31.7 % (30.3-42.9); Hemoglobin 10.7 gm/dl (10.1-14.3); Mean Corpuscular HGB Conc 34 % (30-34); Mean Corpuscular Hemoglobin 30 pg (28-32); Mean Corpuscular Volume 88 fl (79-97); Platelet Count 222 K/mm3 (140-440); Red Blood Count 3.61 M/mm3 (3.65-5.03); Red Cell Distribution Width 14.2 % (13.2-15.2); White Blood Count 10.3 K/mm3 (4.5-11.0)
[2017-03-18 17:45] LABS: Chloride 102.5 mmol/L (98-107); Potassium 5.6 mmol/L (3.6-5.0)
[2017-03-18] MEDS ORDERED: KIONEX PO ONE ×2 (19:31→20:24)
--- NOTE | 2017-03-18 19:36 | Emergency Department Report ---
ED Shortness of Breath HPI - General Chief Complaint: Chest Pain Stated Complaint: SOB/PRESSURE IN CHEST Time Seen by Provider: 03/18/17 19:14 Source: patient Mode of arrival: Wheelchair Limitations: Language Barrier - History of Present Illness Initial Comments: Patient is 61 years old female came today with a chief complaint of shortness of breath has been going on for one week, worse since last night patient unable to lay flat associated with significant dyspnea when walk, also bilateral lower extremity swelling. 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 Patient is also complaining of chest pain central tightness does not radiate, no fever no cough MD Complaint: shortness of breath, chest pain -: Gradual, week(s) Severity: moderate Pain Scale: 4 Improves With: oxygen, rest, upright position Worsens With: lying flat, exertion - Related Data Home Medications Medication Instructions Recorded Confirmed Last Taken Insulin NPH/Regular [NovoLIN 70/30] 15 unit SQ BIDDIAB 04/27/15 03/18/17 08:00 Metoprolol [Lopressor TAB] 50 mg PO BID 04/27/15 03/18/17 07/25/16 Pravastatin Sodium [Pravastatin] 20 mg PO QHS 04/27/15 03/18/17 06/24/16 21:00 glipiZIDE [Glucotrol] 10 mg PO BID 04/27/15 03/18/17 07/25/16 Bumetanide 1 mg PO BID 03/18/17 03/18/17 Unknown Pentoxifylline 400 mg PO TID 03/18/17 03/18/17 Unknown Previous Rx's Medication Instructions Recorded Last Taken Type Pantoprazole [Protonix TAB] 40 mg PO DAILY #30 tablet 08/02/16 Unknown Rx traMADol [Ultram 50 MG tab] 50 mg PO Q6HR PRN #30 tablet 08/02/16 Unknown Rx Allergies Allergy/AdvReac Type Severity Reaction Status Date / Time codeine Allergy Hives Verified 07/26/16 07:29 morphine Allergy confusion Verified 07/26/16 07:29 Penicillins Allergy Hives Verified 07/26/16 07:29 ED Review of Systems ROS: Stated complaint: SOB/PRESSURE IN CHEST Other details as noted in HPI Comment: All other systems reviewed and negative Constitutional: denies: chills, fever Respiratory: denies: cough, orthopnea, shortness of breath, SOB with exertion Cardiovascular: chest pain, dyspnea on exertion, orthopnea, edema, paroxysmal nocturnal dyspnea. denies: palpitations Gastrointestinal: denies: abdominal pain, nausea, vomiting, diarrhea, constipation, hematemesis, melena, hematochezia Genitourinary: denies: urgency Skin: denies: rash Neurological: denies: headache, weakness, numbness, paresthesias ED Past Medical Hx - Past Medical History Previous Medical History?: Yes Hx Hypertension: Yes Hx Heart Attack/AMI: No Hx Congestive Heart Failure: Yes Hx Diabetes: Yes Hx Deep Vein Thrombosis: No Hx Pulmonary Embolism: No Hx Liver Disease: No Hx Renal Disease: No Hx Kidney Stones: No Hx Asthma: No Hx COPD: No Hx Tuberculosis: No Hx HIV: No Additional medical history: HIGH CHOLESTEROL - Surgical History Past Surgical History?: No Hx Coronary Stent: No Hx Pacemaker: No Hx Internal Defibrillator: No - Social History Smoking Status: Never Smoker Substance Use Type: None - Medications Home Medications: Home Medications Medication Instructions Recorded Confirmed Last Taken Type Insulin NPH/Regular [NovoLIN 70/30] 15 unit SQ BIDDIAB 04/27/15 03/18/17 08:00 History Metoprolol [Lopressor TAB] 50 mg PO BID 04/27/15 03/18/17 07/25/16 History Pravastatin Sodium [Pravastatin] 20 mg PO QHS 04/27/15 03/18/17 06/24/16 21:00 History glipiZIDE [Glucotrol] 10 mg PO BID 04/27/15 03/18/17 07/25/16 History Pantoprazole [Protonix TAB] 40 mg PO DAILY #30 tablet 08/02/16 03/18/17 Unknown Rx traMADol [Ultram 50 MG tab] 50 mg PO Q6HR PRN #30 tablet 08/02/16 03/18/17 Unknown Rx Bumetanide 1 mg PO BID 03/18/17 03/18/17 Unknown History Pentoxifylline 400 mg PO TID 03/18/17 03/18/17 Unknown History ED Physical Exam - General Limitations: Language Barrier General appearance: alert, in distress - Head Head exam: Present: normocephalic - Eye Eye exam: Present: normal appearance - ENT ENT exam: Present: normal exam, normal orophraynx - Neck Neck exam: Present: normal inspection, full ROM. Absent: tenderness, meningismus - Respiratory Respiratory exam: Present: respiratory distress, rales, decreased breath sounds. Absent: wheezes, rhonchi, stridor - Cardiovascular Cardiovascular Exam: Present: regular rate, normal rhythm, normal heart sounds - GI/Abdominal GI/Abdominal exam: Present: soft, normal bowel sounds. Absent: distended, tenderness, guarding, rebound, mass, pulsatile mass, hernia - Extremities Exam Extremities exam: Present: pedal edema - Back Exam Back exam: Present: normal inspection. Absent: tenderness, CVA tenderness (R), CVA tenderness (L) - Neurological Exam Neurological exam: Present: alert, oriented X3, CN II-XII intact, normal gait - Skin Skin exam: Present: warm, intact, normal color ED Course Vital Signs 03/18/17 16:53 Temperature 98 F Pulse Rate 87 Respiratory 20 Rate Blood Pressure 124/82 O2 Sat by Pulse 94 Oximetry - Reevaluation(s) Reevaluation #1: 03/18/17 22:[address] ZAMARRIPA for admission ED Medical Decision Making - Lab Data Result diagrams: 03/18/17 17:05 03/18/17 17:05 - EKG Data -: EKG Interpreted by Me - EKG Data When compared to previous EKG there are: no significant change Interpretation: no acute changes - Radiology Data Radiology results: report reviewed Bilateral pleural effusion and pulmonary edema on chest x-ray. - Medical Decision Making Discussed with Juan Carlos Cervantes Nephrology He Advised to Start Patient on IV Lasix Drip at 20 Mg/H. Give Another Dose of Kayexalate 30 G by Mouth and Dextrose and Insulin for the Hyperkalemia and to Consult Vascular Surgeon for access Placement. Critical care attestation.: If time is entered above; I have spent that time in minutes in the direct care of this critically ill patient, excluding procedure time. ED Disposition Clinical Impression: Volume overload, Kidney failure, Acute hyperkalemia Disposition: OP ADMIT IP TO THIS HOSP Is pt being admited?: Yes Condition: Stable Referrals: MELBA FELIX MD [Primary Care Provider] - 3-5 Days
--- NOTE | 2017-03-18 19:48 | XRay Report ---
FINAL REPORT PROCEDURE: XR CHEST 1V AP TECHNIQUE: Chest radiograph anteroposterior view. CPT 86059 HISTORY: chest pain COMPARISON: No prior studies are available for comparison. FINDINGS: Probable CHF is seen. Moderate bilateral pleural effusions are suspected and pulmonary edema may be present. No pneumothorax is seen. IMPRESSION: Probable CHF, pulmonary edema, and moderate pleural effusions are seen. Continued x-ray followup to document resolution is recommended.
[2017-03-18] MEDS ORDERED: LASIX IV ONE (20:10)
[2017-03-18] MEDS ORDERED: D50W (25GM) Vial IV ONE (20:24)
[2017-03-18] MEDS ORDERED: LASIX 100 MG in NACL 0.9% 90 ML IV ONE (20:24)
[2017-03-18] MEDS ORDERED: SODIUM BICARBONATE IV ONE (22:00)
[2017-03-18 23:05] LABS: Calcium 7.9 mg/dL (8.4-10.2); Chloride 105.1 mmol/L (98-107); Potassium 5.4 mmol/L (3.6-5.0)
[2017-03-18] MEDS ORDERED: ZOFRAN IV PRN (23:10)
[2017-03-18] MEDS ORDERED: TYLENOL PO PRN (23:11)
[2017-03-19 02:11] LABS: Creatine Kinase MB 12.5 ng/mL (0.0-4.0)
[2017-03-19] MEDS: LASIX 100 MG in NACL 0.9% 90 ML IV SCH ×4 (02:55→15:28)
[2017-03-19] MEDS ORDERED: ASPIRIN PO ONE (03:02)
[2017-03-19] MEDS ORDERED: HEPARIN 10,000 UNITS/10 ML IV ONE ×2 (03:08)
[2017-03-19] MEDS ORDERED: ULTRAM PO PRN (03:43)
[2017-03-19] MEDS ORDERED: HEPARIN/ 0.45% NACL-25,000 UNIT/500 ML 25,000 UNIT/500 ML BAG IV SCH (04:00)
[2017-03-19] MEDS: NITRO-BID 2% TP SCH ×2 (04:44→10:30)
--- NOTE | 2017-03-19 04:52 | History and Physical Report ---
CHIEF COMPLAINT: Chest pain. Other complaint includes shortness of breath and swelling of the lower extremity. HISTORY OF PRESENT ILLNESS: The patient is a 61-year-old female who has been having difficulty in breathing going on for about 1 week and also the patient has some chest pain that causes tightness in the middle of the chest that does not radiate. The patient said that a day prior to presentation, she was unable to lie flat on the bed and also having problems walking without being so short of breath. There was no history of fever and chills. No history of nausea or vomiting or diaphoresis. The patient has history of renal insufficiency and has no Nephrology attending to her yet and has bilateral lower extremity swelling. There is no history of cough, fever, or dizziness. PAST MEDICAL HISTORY: Pertinent for hypertension, congestive heart failure, diabetes mellitus, renal insufficiency, and hypercholesterolemia. PAST SURGICAL HISTORY: Unremarkable. FAMILY HISTORY: Noncontributory. SOCIAL HISTORY: The patient does not smoke, does not drink alcohol and does not use illicit drugs. MEDICATIONS: The patient is on 70/30 insulin 15 units subQ twice daily, Lopressor 50 mg by mouth twice daily, pravastatin 20 mg at bedtime, glipizide 10 mg p.o. b.i.d., Protonix 40 mg by mouth daily, tramadol 50 mg by mouth every 6 hours, bumetanide 1 mg p.o. b.i.d., pentoxifylline 400 mg p.o. t.i.d. ALLERGIES: The patient is allergic to CODEINE, MORPHINE and PENICILLIN. REVIEW OF SYSTEMS: CONSTITUTIONAL: There is no fever, no chills, no diaphoresis. HEENT: There is no headache or sore throat. CARDIOVASCULAR: Chest pain is present. Orthopnea is present. RESPIRATORY: Shortness of breath is present. There is no cough. GASTROINTESTINAL: There is no nausea, no vomiting, no abdominal pain, diarrhea or constipation. NEUROLOGICAL: There is no numbness, no dizziness, no altered mental status. MUSCULOSKELETAL: There is no joint pain, but has swelling of both lower extremities. DERMATOLOGICAL: There is no skin rash or itching. GENITOURINARY: There is no dysuria, hematuria, or flank pain. Rest of system review is normal. PHYSICAL EXAMINATION: GENERAL: At the time of exam, the patient was found to be alert, oriented x 3, and not in acute distress. VITAL SIGNS: Shows normal temperature with pulse of 88, respirations 20, blood pressure 149/97. The patient's initial blood pressure was 209/89 and repeat blood pressure hour later was 149/97. HEENT: Show pupils to be equal, round, and reactive to light and accommodation. Extraocular muscles are intact. NECK: Supple with no JVD or carotid bruit. CARDIOVASCULAR: Show first and second heart sounds with no gallops or murmur. The patient has ankle edema about 2+. RESPIRATORY: Showed good air entry on both sides of the lung with bibasilar rales. GASTROINTESTINAL: Show abdomen to be full, soft, nontender with no organomegaly or rigidity. NEUROLOGIC: Shows no focal deficit. MUSCULOSKELETAL: Show no joint swelling or tenderness. DERMATOLOGICAL: Show no skin rash. GENITOURINARY: Showing no costovertebral angle tenderness. PERTINENT LABORATORY AND IMAGING STUDIES: The patient had CBC done with normal white count, normal hemoglobin and normal hematocrit with CBC differential showing elevated segmented neutrophil count of 80.7. The patient's chemistry shows elevated potassium level of 5.6 with low CO2 of 18, elevated BUN of 107 with elevated creatinine of 7.2 and the patient's glucose level was initially high with a value of 214. The patient's first troponin level was high with a value of 0.134 and repeat troponin level after 6 hours show an increased level of 0.144. The patient's brain natriuretic peptide level was high with a value of 35,000. IMAGING STUDIES: The patient had a chest x-ray done that shows a picture of CHF with pulmonary edema. DIAGNOSES: 1. [id number] renal failure. 2. Non-ST elevation myocardial infarction. 3. Congestive heart failure exacerbation. PLAN: The patient will be admitted to medical floor on telemetry and will be started on IV heparin per Cardiology protocol. The patient will have cardiac enzymes checked q. 6 hours x 2 levels and will continue IV Lasix drip as ordered by the biztalk consultant, Dr. Carmona. The patient will also continue Nephrology consult with Dr. Carmona who is aware of the patient's admission and has ordered IV Lasix and the patient will have Vascular Surgical consult with Dr. Feliz Whatley put in by the Emergency Room for putting in vascular access. The patient will have Cardiology consult with Dr. Wicho Hogan for non-ST elevation RI and will have basic metabolic panel checked in the morning. The patient will have nitro paste half inch to anterior chest wall q. 6 hours and will remain n.p.o. for possible intervention in the morning. The patient will have Zofran 4 mg IV every 6 hours as needed for nausea and vomiting and will continue oxygen by nasal cannula at 2 liter per minute. The patient will be on aspirin 325 mg by mouth daily with the first dose given this roller skater since the patient did not have any aspirin in the Emergency Room. The patient will have 2D echo done in the morning because of CHF exacerbation. Further management of the patient's condition will be dependent on the Nephrology consult, Cardiology consult, and Vascular Surgical consult. The patient's home medications will be reconciled and started when the patient starts taking medications by mouth, but the patient will remain n.p.o. for now until the consults are done. JOB# [id number] [facility]/CHIDI GONSALVES
[2017-03-19 05:47] LABS: Hematocrit 29.2 % (30.3-42.9)
[2017-03-19 05:56] LABS: Calcium 7.7 mg/dL (8.4-10.2); Chloride 107.2 mmol/L (98-107)
[2017-03-19 05:57] LABS: INR 1.01 (0.87-1.13)
[2017-03-19 06:03] LABS: Creatine Kinase MB 10.5 ng/mL (0.0-4.0)
[2017-03-19] MEDS ORDERED: PENTOXIFYLLINE 400 MG PO SCH (08:00)
[2017-03-19] MEDS: TRENTAL PO SCH ×4 (08:00→22:36)
[2017-03-19] MEDS ORDERED: BUMETANIDE 1 MG PO SCH (10:00)
[2017-03-19] MEDS: GLUCOTROL PO SCH ×2 (10:17→17:00)
[2017-03-19] MEDS: SODIUM BICARBONATE PO SCH ×3 (10:29→22:37)
[2017-03-19] MEDS: PROTONIX PO SCH (10:29)
[2017-03-19] MEDS: LOPRESSOR PO SCH ×2 (10:30→22:37)
--- NOTE | 2017-03-19 11:26 | Consultation ---
History of Present Illness Consult date: 03/19/17 Consult reason: abnormal cardiac enzymes History of present illness: This patient's a 61-year-old woman with multiple medical problems including diabetes, hypertension, peripheral vascular disease, chronic renal failure and anemia. She is admitted to the hospital at this time with chest pain and shortness of breath. A chest x-ray done in the emergency room reports pulmonary edema with moderate pleural effusions. No acute ischemic changes on her EKG. There is some elevation of the cardiac enzymes with a CK-MB of 12.5 and a troponin level of 0.14. Also noted worsening renal failure with a creatinine of 7.2. Cardiac consultation was requested. Most recent cardiac workup was done at this hospital 8 months ago. An echocardiogram reports preserved left ventricle systolic function but there are regional wall motion abnormalities at the apex, suggesting the presence of underlying coronary artery disease. Patient was readmitted to this hospital a month later and underwent a persantine thallium stress test revealed a moderate sized fixed anteroapical defect. No significant reversible ischemia. Medications and Allergies Allergies Allergy/AdvReac Type Severity Reaction Status Date / Time codeine Allergy Hives Verified 07/26/16 07:29 morphine Allergy confusion Verified 07/26/16 07:29 Penicillins Allergy Hives Verified 07/26/16 07:29 Home Medications Medication Instructions Recorded Confirmed Last Taken Type Insulin NPH/Regular [NovoLIN 70/30] 15 unit SQ BIDDIAB 04/27/15 03/18/17 08:00 History Metoprolol [Lopressor TAB] 50 mg PO BID 04/27/15 03/18/17 07/25/16 History Pravastatin Sodium [Pravastatin] 20 mg PO QHS 04/27/15 03/18/17 06/24/16 21:00 History glipiZIDE [Glucotrol] 10 mg PO BID 04/27/15 03/18/17 07/25/16 History Pantoprazole [Protonix TAB] 40 mg PO DAILY #30 tablet 08/02/16 03/18/17 Unknown Rx traMADol [Ultram 50 MG tab] 50 mg PO Q6HR PRN #30 tablet 08/02/16 03/18/17 Unknown Rx Bumetanide 1 mg PO BID 03/18/17 03/18/17 Unknown History Pentoxifylline 400 mg PO TID 03/18/17 03/18/17 Unknown History Active Meds: Active Medications Acetaminophen (Tylenol) 650 mg PO Q4H PRN PRN Reason: For Pain/Fever/Headache Aspirin (Aspirin) 325 mg PO QDAY [facility] Dextrose (D50w (25gm) Vial) 25 gm IV PRN PRN PRN Reason: Hypoglycemia Glipizide (Glucotrol) 10 mg PO BIDDIAB [facility] Last Admin: 03/19/17 10:17 Dose: Not Given Furosemide 100 mg/ Sodium (Chloride) 100 mls @ 40 mls/hr IV DIRECT [facility] Last Admin: 03/19/17 10:09 Dose: 40 mls/hr Heparin Sodium/Sodium Chloride (Heparin/ 0.45% Nacl-25,000 Unit/500 Ml) 25,000 unit in 500 mls @ 20 mls/hr IV TITRATE [facility]LECIA; 1,000 UNITS/HR PRN Reason: Protocol Last Admin: 03/19/17 04:28 Dose: 1,000 units/hr, 20 mls/hr Insulin Human Isoph/Insulin Regular (Novolin 70/30) 15 unit SUB-Q BIDDIAB [facility] Last Admin: 03/19/17 10:18 Dose: Not Given Insulin Human Regular (Novolin R) 0 units SUB-Q AC [facility] PRN Reason: Protocol Last Admin: 03/19/17 10:17 Dose: Not Given Insulin Human Regular (Novolin R) 0 units SUB-Q QHS [facility] PRN Reason: Protocol Metoprolol Tartrate (Lopressor) 50 mg PO BID [facility] Last Admin: 03/19/17 10:30 Dose: 50 mg Nitroglycerin (Nitro-Bid 2%) 0.5 inch TP QIDNTG [facility] PRN Reason: Protocol Last Admin: 03/19/17 10:30 Dose: 0.5 inch Ondansetron HCl (Zofran) 4 mg IV Q6H PRN PRN Reason: Nausea And Vomiting Pantoprazole Sodium (Protonix) 40 mg PO DAILY [facility] Last Admin: 03/19/17 10:29 Dose: 40 mg Pentoxifylline (Trental) 400 mg PO TID [facility] Simvastatin (Zocor) 10 mg PO QHS [facility] Sodium Bicarbonate (Sodium Bicarbonate) 650 mg PO TID [facility] Last Admin: 03/19/17 10:29 Dose: 650 mg Tramadol HCl (Ultram) 50 mg PO Q6HR PRN PRN Reason: Pain Physical Examination Vital Signs Temp Pulse Resp BP Pulse Ox 98 F 87 20 124/82 94 03/18/17 16:53 03/18/17 16:53 03/18/17 16:53 03/18/17 16:53 03/18/17 16:53 General appearance: no acute distress Cardiac: Positive: Reg Rate and Rhythm Lungs: Positive: Decreased Breath Sounds Extremities: Present: +1 Edema Results 03/19/17 04:23 03/19/17 04:23 Cardiac Enzymes 03/19/17 03/19/17 Range/Units 01:12 04:23 CK-MB (CK-2) 12.5 H 10.5 H (0.0-4.0) ng/mL Coagulation 03/19/17 Range/Units 04:23 PT 13.8 (12.2-14.9) Sec. INR 1.01 (0.87-1.13) APTT 36.0 (24.2-36.6) Sec. CBC 03/19/17 Range/Units 04:23 Hgb 10.0 L (10.1-14.3) gm/dl Hct 29.2 L (30.3-42.9) % Plt Count 221 (140-440) K/mm3 Comprehensive Metabolic Panel 03/19/17 Range/Units 04:23 Sodium 144 (137-145) mmol/L Potassium 5.0 (3.6-5.0) mmol/L Chloride 107.2 H (98-107) mmol/L Carbon Dioxide 20 L (22-30) mmol/L BUN 110 H (7-17) mg/dL Creatinine 7.0 H (0.7-1.2) mg/dL Glucose 117 H (65-100) mg/dL Calcium 7.7 L (8.4-10.2) mg/dL Assessment and Plan Chronic renal failure Pulmonary edema Bilateral Pleural effusions Chest pain fixed anteroapical defect, no reversible ischemia on MPI 07/2016 echocardiogram reports a preserved left ventricle systolic function done 2016 Hx of Anemia Diabetes Hypertension Hyperlipidemia Elevated troponin, chronic Recommendations: Medical therapy for underlying coronary artery disease to include aspirin, long- acting nitrates, beta blockers and statin therapy as tolerated.. Nephrology consultation for renal failure.
--- NOTE | 2017-03-19 12:12 | Consultation ---
History of Present Illness - Reason for Consult Consult date: 03/19/17 chronic renal failure - History of Present Illness This is a 61 year old Indonesian speaking female with a past medical history of Hypertension, Diabetes Mellitus and CHF who presented to the hospital with a chief complaint of Shortness of breath and Chest Pain. Patient's daughter and son at bedside. On evaluation patient was noted to have an elevated serum creatinine of 7.3 and BUN level of 108. Patient was also noted to have Pulmonary Edema on chest x-ray for which she was placed on Lasix drip. As a result we are being consulted for management of this patient's severe renal disease. Past History Past Medical History: diabetes, heart failure, hypertension Past Surgical History: No surgical history Social history: no significant social history Family history: no significant family history Medications and Allergies Allergies Allergy/AdvReac Type Severity Reaction Status Date / Time codeine Allergy Hives Verified 07/26/16 07:29 morphine Allergy confusion Verified 07/26/16 07:29 Penicillins Allergy Hives Verified 07/26/16 07:29 Home Medications Medication Instructions Recorded Confirmed Last Taken Type Insulin NPH/Regular [NovoLIN 70/30] 15 unit SQ BIDDIAB 04/27/15 03/18/17 08:00 History Metoprolol [Lopressor TAB] 50 mg PO BID 04/27/15 03/18/17 07/25/16 History Pravastatin Sodium [Pravastatin] 20 mg PO QHS 04/27/15 03/18/17 06/24/16 21:00 History glipiZIDE [Glucotrol] 10 mg PO BID 04/27/15 03/18/17 07/25/16 History Pantoprazole [Protonix TAB] 40 mg PO DAILY #30 tablet 08/02/16 03/18/17 Unknown Rx traMADol [Ultram 50 MG tab] 50 mg PO Q6HR PRN #30 tablet 08/02/16 03/18/17 Unknown Rx Bumetanide 1 mg PO BID 03/18/17 03/18/17 Unknown History Pentoxifylline 400 mg PO TID 03/18/17 03/18/17 Unknown History Active Meds: Active Medications Acetaminophen (Tylenol) 650 mg PO Q4H PRN PRN Reason: For Pain/Fever/Headache Aspirin (Aspirin) 325 mg PO QDAY [facility] Dextrose (D50w (25gm) Vial) 25 gm IV PRN PRN PRN Reason: Hypoglycemia Glipizide (Glucotrol) 10 mg PO BIDDIAB [facility] Last Admin: 03/19/17 10:17 Dose: Not Given Furosemide 100 mg/ Sodium (Chloride) 100 mls @ 40 mls/hr IV DIRECT [facility] Last Admin: 03/19/17 10:09 Dose: 40 mls/hr Heparin Sodium/Sodium Chloride (Heparin/ 0.45% Nacl-25,000 Unit/500 Ml) 25,000 unit in 500 mls @ 20 mls/hr IV TITRATE [facility]LE[facility]; 1,000 UNITS/HR PRN Reason: Protocol Last Admin: 03/19/17 04:28 Dose: 1,000 units/hr, 20 mls/hr Insulin Human Isoph/Insulin Regular (Novolin 70/30) 15 unit SUB-Q BIDDIAB [facility] Last Admin: 03/19/17 10:18 Dose: Not Given Insulin Human Regular (Novolin R) 0 units SUB-Q AC [facility] PRN Reason: Protocol Last Admin: 03/19/17 10:17 Dose: Not Given Insulin Human Regular (Novolin R) 0 units SUB-Q QHS [facility] PRN Reason: Protocol Metoprolol Tartrate (Lopressor) 50 mg PO BID [facility] Last Admin: 03/19/17 10:30 Dose: 50 mg Nitroglycerin (Nitro-Bid 2%) 0.5 inch TP QIDNTG [facility] PRN Reason: Protocol Last Admin: 03/19/17 10:30 Dose: 0.5 inch Ondansetron HCl (Zofran) 4 mg IV Q6H PRN PRN Reason: Nausea And Vomiting Pantoprazole Sodium (Protonix) 40 mg PO DAILY [facility] Last Admin: 03/19/17 10:29 Dose: 40 mg Pentoxifylline (Trental) 400 mg PO TID [facility] Simvastatin (Zocor) 10 mg PO QHS [facility] Sodium Bicarbonate (Sodium Bicarbonate) 650 mg PO TID [facility] Last Admin: 03/19/17 10:29 Dose: 650 mg Tramadol HCl (Ultram) 50 mg PO Q6HR PRN PRN Reason: Pain Review of Systems Constitutional: fatigue, no weight loss, no weight gain, no fever, no chills, no sweats Ears, nose, mouth and throat: no ear pain, no ear discharge, no tinnitis, no decreased hearing, no nose pain, no nasal congestion, no nasal discharge Cardiovascular: chest pain, edema, shortness of breath, no orthopnea, no palpitations, no rapid/irregular heart beat Respiratory: shortness of breath, dyspnea on exertion, no cough with sputum, no excessive sputum, no hemoptysis Gastrointestinal: no abdominal pain, no nausea, no vomiting, no diarrhea, no constipation, no change in bowel habits Musculoskeletal: no neck stiffness, no neck pain, no shooting arm pain, no arm numbness/tingling, no low back pain, no shooting leg pain, no leg numbness/ tingling Integumentary: no rash, no pruritis, no redness, no sores, no wounds, no jaundice Neurological: no transient paralysis, no paralysis, no weakness, no parathesias , no numbness, no tingling, no seizures, no syncope Psychiatric: no memory loss, no change in sleep habits, no sleep disturbances, no insomnia, no hypersomnia, no change in appetite Endocrine: no cold intolerance, no heat intolerance, no polyphagia, no excessive thirst, no polydipsia, no polyuria Hematologic/Lymphatic: no easy bruising, no easy bleeding, no lymphadenopathy Exam - Vital Signs Vital signs: Vital Signs Temp Pulse Resp BP Pulse Ox 98 F 87 20 124/82 94 03/18/17 16:53 03/18/17 16:53 03/18/17 16:53 03/18/17 16:53 03/18/17 16:53 - General Appearance General appearance: well-developed, appears stated age, fatigue EENT: ATNC, PERRL, hearing intact, vision intact Neck: Present: neck supple, trachea midline Respiratory: Decreased Breath Sounds Heart: regular, S1S2 Gastrointestinal: Present: normoactive bowel sounds Integumentary: warm and dry Neurologic: alert and oriented x3 Musculoskeletal: Present: joint swelling Psychiatric: cooperative Results - Lab Results 03/19/17 04:23 03/19/17 04:23 Most recent lab results Calcium 7.7 mg/dL (8.4-10.2) L 03/19/17 04:23 Assessment and Plan - Patient Problems (1) Volume overload Current Visit: Yes Status: Acute Qualifiers: Hypervolemia type: H Plan to address problem: On Lasix drip. Initiation of hemodialysis today (2) Acute kidney injury superimposed on CKD Current Visit: No Status: Acute Plan to address problem: Patient likely has advanced Progressive Chronic Kidney Disease secondary to Diabetic Nephropathy and Hypertensive Nephrosclerosis Will order Vasculitis work-up, urine lytes and renal ultrasound Spoke with Vascular Surgeon Dr. Whatley- Request to stop Heparin drip for 2 hours ( now) so that vascular catheter can be placed later today Spoke with Dr. Craft who confirmed with Cardiology that Heparin could be held Renally dose medications Obtain daily weights Monitor I/O's Monitor renal function closely (3) Acute hyperkalemia Current Visit: Yes Status: Acute Plan to address problem: Resolved (4) Acute congestive heart failure Current Visit: No Status: Acute Qualifiers: Congestive heart failure type: systolic Qualified Code(s): I50.21 - Acute systolic (congestive) heart failure Plan to address problem: As per Cardiology (5) Diabetes mellitus Current Visit: Yes Status: Acute Qualifiers: Diabetes mellitus type: D Diabetes mellitus complication status: D Diabetes mellitus complication detail: D Diabetic retinopathy severity: D Proliferative retinopathy type: P Diabetes mellitus macular edema: D Diabetes mellitus residential insulin use: D Laterality: L Chronic kidney disease stage: C Plan to address problem: As per primary team Was Hypoglycemic this morning- received D50 (6) Hypertension Current Visit: Yes Status: Acute Qualifiers: Hypertension type: H Plan to address problem: Resume anti-hypertensive agents. Adjust as needed. HD today.
[2017-03-19] MEDS: D50W (25GM) Vial IV PRN (12:41)
--- NOTE | 2017-03-19 15:38 | Consultation ---
History of Present Illness - Reason for Consult Consult date: 03/19/17 Placement of Vascath - History of Present Illness Patient with h/o chronic renal insufficiency, DM, HTN, CAD, presents with Acute on chronic renal failure, pulmonary edema, chest discomfort. Found to have fluid overload, elevated cardiac enzymes. Patient's son provides history, denies any prior history of catheter placement or hemodialysis access. Patient is right-handed. CTSP to place temporary dialysis catheter. Past History Past Medical History: CAD, diabetes, heart failure, hypertension, renal failure Past Surgical History: No surgical history Social history: no significant social history Family history: no significant family history Medications and Allergies Allergies Allergy/AdvReac Type Severity Reaction Status Date / Time codeine Allergy Hives Verified 07/26/16 07:29 morphine Allergy confusion Verified 07/26/16 07:29 Penicillins Allergy Hives Verified 07/26/16 07:29 Home Medications Medication Instructions Recorded Confirmed Last Taken Type Insulin NPH/Regular [NovoLIN 70/30] 15 unit SQ BIDDIAB 04/27/15 03/18/17 08:00 History Metoprolol [Lopressor TAB] 50 mg PO BID 04/27/15 03/18/17 07/25/16 History Pravastatin Sodium [Pravastatin] 20 mg PO QHS 04/27/15 03/18/17 06/24/16 21:00 History glipiZIDE [Glucotrol] 10 mg PO BID 04/27/15 03/18/17 07/25/16 History Pantoprazole [Protonix TAB] 40 mg PO DAILY #30 tablet 08/02/16 03/18/17 Unknown Rx traMADol [Ultram 50 MG tab] 50 mg PO Q6HR PRN #30 tablet 08/02/16 03/18/17 Unknown Rx Bumetanide 1 mg PO BID 03/18/17 03/18/17 Unknown History Pentoxifylline 400 mg PO TID 03/18/17 03/18/17 Unknown History Active Meds: Active Medications Acetaminophen (Tylenol) 650 mg PO Q4H PRN PRN Reason: For Pain/Fever/Headache Aspirin (Aspirin) 325 mg PO QDAY [facility] Dextrose (D50w (25gm) Vial) 25 gm IV PRN PRN PRN Reason: Hypoglycemia Last Admin: 03/19/17 12:41 Dose: 25 gm Glipizide (Glucotrol) 10 mg PO BIDDIAB [facility] Last Admin: 03/19/17 10:17 Dose: Not Given Furosemide 100 mg/ Sodium (Chloride) 100 mls @ 40 mls/hr IV DIRECT [facility] Last Admin: 03/19/17 15:28 Dose: 40 mls/hr Insulin Human Isoph/Insulin Regular (Novolin 70/30) 15 unit SUB-Q BIDDIAB [facility] Last Admin: 03/19/17 10:18 Dose: Not Given Insulin Human Regular (Novolin R) 0 units SUB-Q AC [facility] PRN Reason: Protocol Last Admin: 03/19/17 12:45 Dose: Not Given Insulin Human Regular (Novolin R) 0 units SUB-Q QHS [facility] PRN Reason: Protocol Metoprolol Tartrate (Lopressor) 50 mg PO BID [facility] Last Admin: 03/19/17 10:30 Dose: 50 mg Nitroglycerin (Nitro-Bid 2%) 0.5 inch TP QIDNTG [facility] PRN Reason: Protocol Last Admin: 03/19/17 10:30 Dose: 0.5 inch Ondansetron HCl (Zofran) 4 mg IV Q6H PRN PRN Reason: Nausea And Vomiting Pantoprazole Sodium (Protonix) 40 mg PO DAILY [facility] Last Admin: 03/19/17 10:29 Dose: 40 mg Pentoxifylline (Trental) 400 mg PO TID [facility] Simvastatin (Zocor) 10 mg PO QHS [facility] Sodium Bicarbonate (Sodium Bicarbonate) 650 mg PO TID [facility] Last Admin: 03/19/17 10:29 Dose: 650 mg Tramadol HCl (Ultram) 50 mg PO Q6HR PRN PRN Reason: Pain Review of Systems Constitutional: no fever, no chills Ears, nose, mouth and throat: no sore throat Cardiovascular: no chest pain Respiratory: dyspnea on exertion, no cough Gastrointestinal: no abdominal pain Musculoskeletal: no redness of joints Integumentary: no rash Neurological: no tremors Psychiatric: no memory loss Endocrine: fatigue Exam - Constitutional Vitals: Temp Pulse Resp BP Pulse Ox 98.3 F 83 20 159/60 100 03/19/17 07:01 03/19/17 10:30 03/19/17 10:00 03/19/17 10:30 03/19/17 10:00 General appearance: Present: no acute distress - EENT Eyes: Present: EOM intact ENT: hearing intact - Neck Neck: Present: normal ROM - Respiratory Respiratory effort: normal - Cardiovascular Rhythm: regular - Extremities Extremities: No edema Peripheral Pulses: within normal limits - Abdominal General gastrointestinal: Present: soft - Integumentary Integumentary: Present: warm, dry. Absent: erythema - Psychiatric Psychiatric: appropriate mood/affect - Neurologic Neurologic: no focal deficits, moves all extremities Results - Labs CBC & Chem 7: 03/19/17 04:23 03/19/17 04:23 Labs: Abnormal lab results 03/19/17 03/19/17 03/19/17 Range/Units 00:01 01:12 04:23 Hgb (10.1-14.3) gm/dl Hct (30.3-42.9) % Chloride 107.2 H (98-107) mmol/L Carbon Dioxide 20 L (22-30) mmol/L BUN 110 H (7-17) mg/dL Creatinine 7.0 H (0.7-1.2) mg/dL Glucose 117 H (65-100) mg/dL POC Glucose (70-105) Calcium 7.7 L (8.4-10.2) mg/dL Total Creatine Kinase 219 H (30-135) units/L CK-MB (CK-2) 12.5 H (0.0-4.0) ng/mL CK-MB (CK-2) Rel Index 5.7 H (0-4) Troponin T 0.133 H* 0.144 H* (0.00-0.029) ng/mL 03/19/17 03/19/17 03/19/17 Range/Units 04:23 04:23 12:33 Hgb 10.0 L (10.1-14.3) gm/dl Hct 29.2 L (30.3-42.9) % Chloride (98-107) mmol/L Carbon Dioxide (22-30) mmol/L BUN (7-17) mg/dL Creatinine (0.7-1.2) mg/dL Glucose (65-100) mg/dL POC Glucose < 40 L (70-105) Calcium (8.4-10.2) mg/dL Total Creatine Kinase 180 H (30-135) units/L CK-MB (CK-2) 10.5 H (0.0-4.0) ng/mL CK-MB (CK-2) Rel Index 5.8 H (0-4) Troponin T 0.141 H* (0.00-0.029) ng/mL Assessment and Plan Acute on Chronic renal failure: Plan for urgent placement of Vascath. Discussed with patient and her son, consent obtained. 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 insulin use: D Laterality: L Chronic kidney disease stage: C (3) Hypertension Current Visit: Yes Status: Acute Qualifiers: Hypertension type: H (4) Kidney failure Current Visit: Yes Status: Acute Qualifiers: Renal failure chronicity: R Acute renal failure type: A Chronic kidney disease stage: C (5) Volume overload Current Visit: Yes Status: Acute Qualifiers: Hypervolemia type: H (6) ARF (acute renal failure) Current Visit: No Status: Acute Qualifiers: Acute renal failure type: unspecified Qualified Code(s): N17.9 - Acute kidney failure, unspecified (7) Acute congestive heart failure Current Visit: No Status: Acute Qualifiers: Congestive heart failure type: systolic Qualified Code(s): I50.21 - Acute systolic (congestive) heart failure (8) Acute kidney injury superimposed on CKD Current Visit: No Status: Acute (9) Acute respiratory failure Current Visit: No Status: Acute Qualifiers: Respiratory failure complication: R (10) Anemia Current Visit: No Status: Acute Qualifiers: Anemia type: A Iron deficiency anemia type: I Vitamin B12 deficiency anemia type: V Folate deficiency anemia type: F Bone marrow failure anemia type: B Hemolytic anemia type: H Other causes of anemia: O Chronic kidney disease stage: C (11) Coronary artery disease Current Visit: No Status: Acute Qualifiers: Coronary Disease-Associated Artery/Lesion type: C [place] vs. transplanted heart: N Associated angina: A (12) Hypertensive urgency Current Visit: No Status: Acute (13) Metabolic acidosis Current Visit: No Status: Acute (14) Morbid obesity Current Visit: No Status: Acute (15) Pneumonia Current Visit: No Status: Acute Qualifiers: Pneumonia type: due to unspecified organism Aspiration pneumonia type: A Laterality: bilateral Lung location: lower lobe of lung Qualified Code(s): J18.9 - Pneumonia, unspecified organism (16) Sepsis Current Visit: No Status: Acute Qualifiers: Sepsis type: S
[2017-03-19 16:03] LABS: HIV-1 Antigen p24 Non React (Non React); HIVR-1/2 Ab Non React (Non React)
--- NOTE | 2017-03-19 16:10 | Progress Note ---
Assessment and Plan Assessment and plan: --Acute on chronic renal failure Patient may need stat hemodialysis, nephrology following, vascular consult for Vas-Cath --Non-ST elevation ID; continue aspirin and beta blockers BARBER inhibitor nitrates and statins, heparin drip Follow Cardiology evaluation and recommendations, we'll hold heparin drip for Vas-Cath placement --Type 2 diabetes mellitus; blood sugars on the lower range this patient was nothing by mouth for procedure Closely monitor blood sugars, Accu-Cheks sliding scale coverage ADA diet and insulin as needed Laboratory medication if needed, home health nurse for disease monitoring --Acute on chronic systolic congestive heart failure Ejection fraction 40-45%, continue anti-failure medications, cardiology following --Dyslipidemia; continue current lipid-lowering medications --Hypertension; moderate control, continue current antihypertensives and when necessary medications --Morbid obesity; counseling done, advised dietary modification and exercise as tolerated and weight reduction when medically stable --DVT prophylaxis with heparin Consults and recommendations noted and appreciated Treatment plan discussed with the patient and his nurse History Interval history: Patient seen and examined this morning, medical records reviewed Patient's son is at the bedside, acute on chronic kidney failure Worsening renal function, possible stat hemodialysis today Patient is sleeping easily awakened small new complaints vital signs reviewed Hospitalist Physical - Constitutional Vitals: Temp Pulse Resp BP Pulse Ox 98.3 F 83 20 159/60 100 03/19/17 07:01 03/19/17 10:30 03/19/17 10:00 03/19/17 10:30 03/19/17 10:00 General appearance: Present: no acute distress, well-nourished, obese - EENT Eyes: Present: PERRL, EOM intact - Neck Neck: Present: supple, normal ROM - Respiratory Respiratory effort: normal Respiratory: bilateral: diminished, rales, negative: rhonchi, wheezing - Cardiovascular Rhythm: regular Heart Sounds: Present: S1 & S2 - Extremities Extremities: no ischemia, No edema - Abdominal General gastrointestinal: soft, non-tender, non-distended, normal bowel sounds - Integumentary Integumentary: Present: clear, warm - Psychiatric Psychiatric: appropriate mood/affect, cooperative - Neurologic Neurologic: CNII-XII intact, moves all extremities Results - Labs CBC & Chem 7: 03/19/17 04:23 03/19/17 04:23 Labs: Laboratory Last Values WBC 10.3 K/mm3 (4.5-11.0) 03/18/17 17:05 RBC 3.61 M/mm3 (3.65-5.03) L 03/18/17 17:05 Hgb 10.0 gm/dl (10.1-14.3) L 03/19/17 04:23 Hct 29.2 % (30.3-42.9) L 03/19/17 04:23 MCV 88 fl (79-97) 03/18/17 17:05 MCH 30 pg (28-32) 03/18/17 17:05 MCHC 34 % (30-34) 03/18/17 17:05 RDW 14.2 % (13.2-15.2) 03/18/17 17:05 Plt Count 221 K/mm3 (140-440) 03/19/17 04:23 Lymph % (Auto) 11.9 % (13.4-35.0) L 03/18/17 17:05 [place] % (Auto) 4.9 % (0.0-7.3) 03/18/17 17:05 Eos % (Auto) 1.7 % (0.0-4.3) 03/18/17 17:05 Baso % (Auto) 0.8 % (0.0-1.8) 03/18/17 17:05 Lymph # 1.2 K/mm3 (1.2-5.4) 03/18/17 17:05 [place] # 0.5 K/mm3 (0.0-0.8) 03/18/17 17:05 Eos # 0.2 K/mm3 (0.0-0.4) 03/18/17 17:05 Baso # 0.1 K/mm3 (0.0-0.1) 03/18/17 17:05 Seg Neutrophils % 80.7 % (40.0-70.0) H 03/18/17 17:05 Seg Neutrophils # 8.3 K/mm3 (1.8-7.7) H 03/18/17 17:05 PT 13.8 Sec. (12.2-14.9) 03/19/17 04:23 INR 1.01 (0.87-1.13) 03/19/17 04:23 APTT 36.0 Sec. (24.2-36.6) 03/19/17 04:23 Heparin Anti-Xa Level 0.68 U.I./ml (0.3-0.7) 03/19/17 11:55 Sodium 144 mmol/L (137-145) 03/19/17 04:23 Potassium 5.0 mmol/L (3.6-5.0) 03/19/17 04:23 Chloride 107.2 mmol/L (98-107) H 03/19/17 04:23 Carbon Dioxide 20 mmol/L (22-30) L 03/19/17 04:23 Anion Gap 22 mmol/L 03/19/17 04:23 BUN 110 mg/dL (7-17) H 03/19/17 04:23 Creatinine 7.0 mg/dL (0.7-1.2) H 03/19/17 04:23 Estimated GFR 6 ml/min 03/19/17 04:23 BUN/Creatinine Ratio 16 % 03/19/17 04:23 Glucose 117 mg/dL (65-100) H 03/19/17 04:23 POC Glucose < 40 (70-105) L 03/19/17 12:33 Calcium 7.7 mg/dL (8.4-10.2) L 03/19/17 04:23 Total Creatine Kinase 180 units/L (30-135) H 03/19/17 04:23 CK-MB (CK-2) 10.5 ng/mL (0.0-4.0) H 03/19/17 04:23 CK-MB (CK-2) Rel Index 5.8 (0-4) H 03/19/17 04:23 Troponin T 0.141 ng/mL (0.00-0.029) H* 03/19/17 04:23 NT-Pro-B Natriuret Pep 77011 pg/mL (0-900) H 03/18/17 19:43 Triglycerides 195 mg/dL (2-149) H 03/18/17 17:05 Cholesterol 189 mg/dL (50-199) 03/18/17 17:05 LDL Cholesterol Direct 62 mg/dL (50-130) 03/18/17 17:05 HDL Cholesterol 88 mg/dL (40-59) H 03/18/17 17:05 Cholesterol/HDL Ratio 2.14 % 03/18/17 17:05 HIV 1&2 Antibody Rapid Non react (Non React) 03/19/17 14:46 HIV P24 Antigen Non react (Non React) 03/19/17 14:46
[2017-03-19] MEDS ORDERED: D50W (25GM) Vial IV ONE (16:19)
[2017-03-19] MEDS ORDERED: D50W (25GM) Vial 50 ML IV ONE (16:22)
--- NOTE | 2017-03-19 16:57 | Operative Report ---
Operative Report Operative Report: Preop Diagnosis: Acute on Chronic Renal Failure, need for urgent hemodialysis access Postop Diagnosis: Same as above Procedure: 1. Ultrasound-guided access of right IJ vein 2. Placement of right IJ temporary dialysis catheter Surgeon: Dr. Feliz Whatley, [facility] Vascular Surgery Findings: Patent Right IJ Vein EBL: Minimal Tubes/Drains: VasCath Temporary dialysis catheter Complications: None Description of Procedure: The patient was brought to the microbiological lab technician angiography suite and placed supine on the angio table. A 'time out' was performed after appropriate IV lines and monitoring were completed. I evaluated the IJ vein with the ultrasound to judy which vein I would use, and it was patent with no visible clot and compressible. The neck was then prepped and draped in the standard surgical fashion. Using ultrasound the vein was accessed using the micropuncture set after 1% lidocaine was used for local. The wire was placed and on fluoroscopy was seen going into the SVC and right atrium. The neck access was dilated appropriately and the temporary dialysis catheter was placed. On fluoroscopy the tip of the catheter was at the SVC-RA junction. All catheter ports withdrew venous blood, and all ports flushed easily. The catheter was then sutured to the neck with prolene. This was followed by sterile dressings. The patient tolerated the procedure well and there were no complications.
[2017-03-19] MEDS ORDERED: VANCOMYCIN/NS 1 GM/250 ML 1 GM/250 ML BAG IV ONE (17:31)
[2017-03-19] MEDS ORDERED: HEPARIN/NS 5000 UNIT/500ML(CATH LAB) 500 ML IR ONE (17:47)
[2017-03-19] MEDS ORDERED: XYLOCAINE 2% INFILTRATI ONE (17:47)
[2017-03-19] MEDS ORDERED: HEPARIN 10,000 UNITS/10 ML ONE (17:47)
[2017-03-19] MEDS ORDERED: VERSED ONE (17:48)
[2017-03-19] MEDS: SUBLIMAZE ONE ×2 (17:53→18:05)
[2017-03-19] MEDS ORDERED: NACL 0.9% 250ML 250 ML ONE (17:53)
[2017-03-19] MEDS: HEPARIN IV PRN (20:35)
[2017-03-19] MEDS ORDERED: NON-FORMULARY (Pravastatin Sodium [Pravastatin] 20 MG) PO SCH (22:00)
[2017-03-19] MEDS: ZOCOR PO SCH (22:37)
[2017-03-20] MEDS: LASIX 100 MG in NACL 0.9% 90 ML IV SCH ×5 (03:13→23:21)
[2017-03-20] MEDS: NITRO-BID 2% TP SCH ×4 (06:37→17:52)
[2017-03-20 07:35] LABS: Albumin 2.3 g/dL (3.9-5); Bilirubin,Total 0.2 mg/dL (0.1-1.2); Calcium 7.3 mg/dL (8.4-10.2); Chloride 105.3 mmol/L (98-107); Potassium 4.2 mmol/L (3.6-5.0); Total Protein 4.6 g/dL (6.3-8.2)
[2017-03-20] MEDS: GLUCOTROL PO SCH ×2 (08:45→17:50)
[2017-03-20] MEDS: TRENTAL PO SCH ×3 (08:46→21:05)
[2017-03-20] MEDS: SODIUM BICARBONATE PO SCH ×3 (08:52→21:05)
[2017-03-20] MEDS: ASPIRIN PO SCH (09:37)
[2017-03-20] MEDS: LOPRESSOR PO SCH ×2 (09:37→22:46)
[2017-03-20] MEDS: PROTONIX PO SCH (09:38)
--- NOTE | 2017-03-20 09:50 | Progress Note ---
Assessment and Plan 1) Volume overload Current Visit: Yes Status: Acute Qualifiers: Hypervolemia type: H Plan to address problem: HD again today with ultrafiltration (2) severe renal failure to do progression of CKD Current Visit: No Status: Acute Plan to address problem: HD again today for clearance and volume removal will assess HD needs daily and monitor renal recovery, patient may need HD indefinitely vasculitis and secondary GN work up is pending Renally dose medications Obtain daily weights Monitor I/O's Monitor renal function closely (3) Acute hyperkalemia Current Visit: Yes Status: Acute Plan to address problem: Resolved (4) Acute congestive heart failure Current Visit: No Status: Acute Qualifiers: Congestive heart failure type: systolic Qualified Code(s): I50.21 - Acute systolic (congestive) heart failure Plan to address problem: As per Cardiology UF with HD (5) Diabetes mellitus Current Visit: Yes Status: Acute Qualifiers: Diabetes mellitus type: D Diabetes mellitus complication status: D Diabetes mellitus complication detail: D Diabetic retinopathy severity: D Proliferative retinopathy type: P Diabetes mellitus macular edema: D Diabetes mellitus custodial insulin use: D Laterality: L Chronic kidney disease stage: C Plan to address problem: As per primary team Subjective Date of service: 03/20/17 Principal diagnosis: severe renal failure Interval history: tolerated HD yesterday, seen during HD today, tolerating Objective - Vital Signs Vital signs: Vital Signs - 12hr 03/19/17 03/19/17 03/19/17 21:59 22:00 22:37 Temperature 97.7 F Pulse Rate 83 83 Respiratory 18 20 Rate Blood Pressure 159/54 159/54 O2 Sat by Pulse 91 Oximetry 03/20/17 03/20/17 03/20/17 00:26 01:00 01:09 Temperature 97.3 F L Pulse Rate 74 75 Respiratory 20 Rate Blood Pressure 132/41 O2 Sat by Pulse 85 96 Oximetry 03/20/17 03/20/17 03/20/17 03:18 04:41 06:37 Temperature 98.5 F Pulse Rate 73 73 Respiratory 20 20 Rate Blood Pressure 146/40 146/40 O2 Sat by Pulse 98 Oximetry - General Appearance General appearance: well-developed, obese EENT: ATNC, PERRL, mucous membranes moist Neck: no JVD Respiratory: Present: Decreased Breath Sounds Cardiology: regular, S1S2 Gastrointestinal: normoactive bowel sounds, no tenderness, no distended Integumentary: no rash, warm and dry Neurologic: no focal deficit, no asterixis Musculoskeletal: other (edema in BLE) Psychiatric: cooperative - Lab 03/19/17 04:23 03/20/17 06:13 Most recent lab results Calcium 7.3 mg/dL (8.4-10.2) L 03/20/17 06:13
--- NOTE | 2017-03-20 10:26 | Progress Note ---
Assessment and Plan Volume overload Chronic renal failure initiated on dialysis Pulmonary edema Bilateral Pleural effusions Chest pain fixed anteroapical defect, no reversible ischemia on MPI 07/2016 echocardiogram reports a preserved left ventricle systolic function done 2016 Hx of Anemia Diabetes Hypertension Hyperlipidemia Elevated troponin, chronic Recommendations: Medical therapy for underlying coronary artery disease to include aspirin, long- acting nitrates, beta blockers and statin therapy as tolerated.. Dialysis for fluid management. Further cardiac evaluation depends on clinical course. Subjective Date of service: 03/20/17 Interval history: Dialyzed overnight. No events on telemetry. Objective Vital Signs Temp Pulse Resp BP BP Pulse Ox 03/20/17 09:26 96 03/20/17 06:37 73 146/40 03/20/17 04:41 98.5 F 73 20 146/40 98 03/20/17 03:18 20 03/20/17 01:09 96 03/20/17 01:00 75 03/20/17 00:26 97.3 F L 74 20 132/41 85 03/19/17 22:37 83 159/54 03/19/17 22:00 20 03/19/17 21:59 97.7 F 83 18 159/54 91 03/19/17 20:45 98.3 F 78 18 157/60 03/19/17 20:35 72 141/72 03/19/17 20:15 73 134/76 03/19/17 20:00 71 122/66 03/19/17 19:45 70 129/58 03/19/17 19:30 72 130/63 03/19/17 19:15 70 108/59 03/19/17 19:00 70 86/50 03/19/17 18:45 70 93/50 03/19/17 18:35 98.4 F 74 18 154/72 03/19/17 16:20 98.0 F 79 19 109/65 99 03/19/17 13:52 84 03/19/17 11:30 97.5 F L 73 22 151/71 99 03/19/17 10:30 83 159/60 - Physical Examination General: No Apparent Distress Cardiac: Positive: Reg Rate and Rhythm Extremities: Present: +1 Edema - Labs and Meds Cardiac Enzymes 03/20/17 Range/Units 06:13 AST 18 (5-40) units/L Comprehensive Metabolic Panel 10/31/17 Range/Units 06:13 Sodium 144 (137-145) mmol/L Potassium 4.2 (3.6-5.0) mmol/L Chloride 105.3 (98-107) mmol/L Carbon Dioxide 26 (22-30) mmol/L BUN 61 H (7-17) mg/dL Creatinine 5.1 H (0.7-1.2) mg/dL Glucose 113 H (65-100) mg/dL Calcium 7.3 L (8.4-10.2) mg/dL AST 18 (5-40) units/L ALT 15 (7-56) units/L Alkaline Phosphatase 86 (35-129) units/L Total Protein 4.6 L (6.3-8.2) g/dL Albumin 2.3 L (3.9-5) g/dL
[2017-03-20] MEDS ORDERED: NACL 0.9 (PRIMING MACHINE ONLY DIALYSIS) MC ONE (12:47)
--- NOTE | 2017-03-20 15:47 | Ultrasound Report ---
ULTRASOUND RENAL INDICATION: Renal failure. COMPARISON: 06/27/2016. FINDINGS: Renal sonography somewhat limited due to patient's body habitus, though suggests borderline/slight increased renal cortical echogenicity, more so on the right. Grossly preserved contours. No hydronephrosis. RIGHT KIDNEY measures 11.3 x 4.2 x 4.2 cm with cortical thickness of 1.3 cm. LEFT KIDNEY estimated at 10.7 x 4.9 x 5.6 cm with cortical thickness of 1.2 cm. URINARY BLADDER suboptimally distended and assessed with an indwelling Castillo catheter. CONCLUSION: Slight underlying medical renal disease possible sonographically without acute renal abnormality. Please correlate. Thank you for the opportunity to participate in this patient's care.
--- NOTE | 2017-03-20 17:40 | Progress Note ---
Assessment and Plan Assessment and plan: --Acute on chronic renal failure stage IV; hemodialysis initiated, scheduled for dialysis today again Symptoms slightly improved, nephrology following --Non-ST elevation [place]; continue aspirin and beta blockers BARBER inhibitor nitrates and statins, cardiology following --Type 2 diabetes mellitus; blood sugars aren't well-controlled Closely monitor blood sugars, Accu-Cheks sliding scale coverage ADA diet and low dose 7030 insulin --Acute on chronic systolic congestive heart failure Ejection fraction 40-45%, continue anti-failure medications --Dyslipidemia; continue current lipid-lowering medications --Hypertension; moderate control, continue current antihypertensives and when necessary medications --Morbid obesity; advised dietary modification and exercise as tolerated and weight reduction when medically stable --DVT prophylaxis with heparin Consults and recommendations noted and appreciated Treatment plan discussed with the patient, her son at the bedside and her nurse History Interval history: Patient seen and examined this morning Medical records reviewed, patient feels slightly better Scheduled for hemodialysis today Denies chest pain or shortness of breath Alert awake oriented 3 not in acute distress Vital signs reviewed Hospitalist Physical - Constitutional Vitals: Temp Pulse Resp BP Pulse Ox 98.4 F 70 16 151/72 97 03/20/17 13:44 03/20/17 13:44 03/20/17 13:44 03/20/17 13:44 03/20/17 10:00 General appearance: Present: no acute distress, well-nourished, obese - EENT Eyes: Present: PERRL, EOM intact - Neck Neck: Present: supple, normal ROM - Respiratory Respiratory effort: normal Respiratory: bilateral: diminished, rales, negative: rhonchi, wheezing - Cardiovascular Rhythm: regular Heart Sounds: Present: S1 & S2 - Extremities Extremities: no ischemia, No edema Peripheral Pulses: within normal limits - Abdominal General gastrointestinal: soft, non-tender, non-distended, normal bowel sounds - Integumentary Integumentary: Present: clear, warm - Psychiatric Psychiatric: appropriate mood/affect, cooperative - Neurologic Neurologic: CNII-XII intact, moves all extremities Results - Labs CBC & Chem 7: 03/19/17 04:23 03/20/17 06:13 Labs: Laboratory Last Values WBC 10.3 K/mm3 (4.5-11.0) 03/18/17 17:05 RBC 3.61 M/mm3 (3.65-5.03) L 03/18/17 17:05 Hgb 10.0 gm/dl (10.1-14.3) L 03/19/17 04:23 Hct 29.2 % (30.3-42.9) L 03/19/17 04:23 MCV 88 fl (79-97) 03/18/17 17:05 MCH 30 pg (28-32) 03/18/17 17:05 MCHC 34 % (30-34) 03/18/17 17:05 RDW 14.2 % (13.2-15.2) 03/18/17 17:05 Plt Count 221 K/mm3 (140-440) 03/19/17 04:23 Lymph % (Auto) 11.9 % (13.4-35.0) L 03/18/17 17:05 [place] % (Auto) 4.9 % (0.0-7.3) 03/18/17 17:05 Eos % (Auto) 1.7 % (0.0-4.3) 03/18/17 17:05 Baso % (Auto) 0.8 % (0.0-1.8) 03/18/17 17:05 Lymph # 1.2 K/mm3 (1.2-5.4) 03/18/17 17:05 [place] # 0.5 K/mm3 (0.0-0.8) 03/18/17 17:05 Eos # 0.2 K/mm3 (0.0-0.4) 03/18/17 17:05 Baso # 0.1 K/mm3 (0.0-0.1) 03/18/17 17:05 Seg Neutrophils % 80.7 % (40.0-70.0) H 03/18/17 17:05 Seg Neutrophils # 8.3 K/mm3 (1.8-7.7) H 03/18/17 17:05 PT 13.8 Sec. (12.2-14.9) 03/19/17 04:23 INR 1.01 (0.87-1.13) 03/19/17 04:23 APTT 36.0 Sec. (24.2-36.6) 03/19/17 04:23 Heparin Anti-Xa Level 0.68 U.I./ml (0.3-0.7) 03/19/17 11:55 Sodium 144 mmol/L (137-145) 03/20/17 06:13 Potassium 4.2 mmol/L (3.6-5.0) 03/20/17 06:13 Chloride 105.3 mmol/L (98-107) 03/20/17 06:13 Carbon Dioxide 26 mmol/L (22-30) 03/20/17 06:13 Anion Gap 17 mmol/L 03/20/17 06:13 BUN 61 mg/dL (7-17) H 03/20/17 06:13 Creatinine 5.1 mg/dL (0.7-1.2) H 03/20/17 06:13 Estimated GFR 9 ml/min 03/20/17 06:13 BUN/Creatinine Ratio 12 % 03/20/17 06:13 Glucose 113 mg/dL (65-100) H 03/20/17 06:13 POC Glucose 148 (70-105) H 03/20/17 14:27 Calcium 7.3 mg/dL (8.4-10.2) L 03/20/17 06:13 Total Bilirubin 0.20 mg/dL (0.1-1.2) 03/20/17 06:13 AST 18 units/L (5-40) 03/20/17 06:13 ALT 15 units/L (7-56) 03/20/17 06:13 Alkaline Phosphatase 86 units/L (35-129) 03/20/17 06:13 Total Creatine Kinase 180 units/L (30-135) H 03/19/17 04:23 CK-MB (CK-2) 10.5 ng/mL (0.0-4.0) H 03/19/17 04:23 CK-MB (CK-2) Rel Index 5.8 (0-4) H 03/19/17 04:23 Troponin T 0.141 ng/mL (0.00-0.029) H* 03/19/17 04:23 NT-Pro-B Natriuret Pep 86025 pg/mL (0-900) H 03/18/17 19:43 Total Protein 4.6 g/dL (6.3-8.2) L 03/20/17 06:13 Albumin 2.3 g/dL (3.9-5) L 03/20/17 06:13 Albumin/Globulin Ratio 1.0 % 03/20/17 06:13 Triglycerides 195 mg/dL (2-149) H 03/18/17 17:05 Cholesterol 189 mg/dL (50-199) 03/18/17 17:05 LDL Cholesterol Direct 62 mg/dL (50-130) 03/18/17 17:05 HDL Cholesterol 88 mg/dL (40-59) H 03/18/17 17:05 Cholesterol/HDL Ratio 2.14 % 03/18/17 17:05 Urine Eosinophils 1% (None Seen) 03/20/17 Unknown Urine Creatinine 28.0 mg/dL (0.1-20.0) H 03/20/17 Unknown Protein/Creatinin Ratio 0.25 03/20/17 Unknown Urine Sodium 112 mEq/L 03/20/17 Unknown Urine Total Protein 7 mg/dL (5-11.8) 03/20/17 Unknown Hepatitis A IgM Ab Non-reactive (NonReactive) 03/19/17 20:35 Hep Bs Antigen Non-reactive (Negative) 03/19/17 20:35 Hep B Core IgM Ab Non-reactive (NonReactive) 03/19/17 20:35 Hepatitis C Antibody Non-reactive (NonReactive) 03/19/17 20:35 HIV 1&2 Antibody Rapid Non react (Non React) 03/19/17 14:46 HIV P24 Antigen Non react (Non React) 03/19/17 14:46
[2017-03-20] MEDS: ZOCOR PO SCH (22:44)
[2017-03-21] MEDS: NITRO-BID 2% TP SCH ×5 (06:07→17:18)
[2017-03-21] MEDS: LASIX 100 MG in NACL 0.9% 90 ML IV SCH ×3 (06:09→19:22)
[2017-03-21 06:32] LABS: Hematocrit 27.7 % (30.3-42.9); Hemoglobin 9.5 gm/dl (10.1-14.3)
[2017-03-21] MEDS: LOPRESSOR PO SCH ×2 (09:09→23:36)
[2017-03-21] MEDS: ASPIRIN PO SCH (09:09)
[2017-03-21] MEDS: PROTONIX PO SCH (09:09)
[2017-03-21] MEDS: SODIUM BICARBONATE PO SCH ×3 (09:09→20:29)
[2017-03-21] MEDS: TRENTAL PO SCH ×3 (09:10→20:29)
--- NOTE | 2017-03-21 09:38 | Progress Note ---
Assessment and Plan Assessment and plan: --Non-ST elevation [place]; continue aspirin and beta blockers BARBER inhibitor nitrates and statins, Possible left heart cath tomorrow ,cardiology following --Acute on chronic renal failure stage IV; on hemodialysis as needed per nephrology, --Type 2 diabetes mellitus; blood sugars moderate control Closely monitor blood sugars, Accu-Cheks sliding scale coverage ADA diet and low dose 7030 insulin --Acute on chronic systolic congestive heart failure Ejection fraction 40-45%, continue anti-failure medications --Dyslipidemia; continue current lipid-lowering medications --Hypertension; moderate control, continue current antihypertensives and when necessary medications --Morbid obesity; advised dietary modification and exercise as tolerated and weight reduction when medically stable --Moderate protein calorie malnutrition; supportive care, nutrition supplements --DVT prophylaxis with heparin --Discharge planning per Case management, outpatient HD chair scheduling when patient is medically stable Treatment plan discussed with the patient, her son at the bedside and her nurse Consults and recommendations noted History Interval history: Patient seen and examined in her home Medical records reviewed Patient feels better no new complaints Alert awake oriented 3 not in acute distress Conversation done through bilingual student nurse . Hospitalist Physical - Constitutional Vitals: Temp Pulse Resp BP Pulse Ox 98.7 F 75 18 170/75 99 03/21/17 05:33 03/21/17 06:07 03/21/17 05:33 03/21/17 06:07 03/21/17 09:31 General appearance: Present: no acute distress, well-nourished, obese - EENT Eyes: Present: PERRL, EOM intact ENT: hearing intact, clear oral mucosa - Neck Neck: Present: supple, normal ROM - Respiratory Respiratory effort: normal Respiratory: bilateral: diminished, negative: rales, rhonchi, wheezing - Cardiovascular Rhythm: regular Heart Sounds: Present: S1 & S2 - Extremities Extremities: no ischemia, No edema Peripheral Pulses: within normal limits - Abdominal General gastrointestinal: soft, non-tender, non-distended, normal bowel sounds - Integumentary Integumentary: Present: clear, warm - Psychiatric Psychiatric: appropriate mood/affect, cooperative - Neurologic Neurologic: CNII-XII intact, moves all extremities Results - Labs CBC & Chem 7: 03/21/17 05:55 03/20/17 06:13 Labs: Laboratory Last Values WBC 10.3 K/mm3 (4.5-11.0) 03/18/17 17:05 RBC 3.61 M/mm3 (3.65-5.03) L 03/18/17 17:05 Hgb 9.5 gm/dl (10.1-14.3) L 03/21/17 05:55 Hct 27.7 % (30.3-42.9) L 03/21/17 05:55 MCV 88 fl (79-97) 03/18/17 17:05 MCH 30 pg (28-32) 03/18/17 17:05 MCHC 34 % (30-34) 03/18/17 17:05 RDW 14.2 % (13.2-15.2) 03/18/17 17:05 Plt Count 170 K/mm3 (140-440) 03/21/17 05:55 Lymph % (Auto) 11.9 % (13.4-35.0) L 03/18/17 17:05 [place] % (Auto) 4.9 % (0.0-7.3) 03/18/17 17:05 Eos % (Auto) 1.7 % (0.0-4.3) 03/18/17 17:05 Baso % (Auto) 0.8 % (0.0-1.8) 03/18/17 17:05 Lymph # 1.2 K/mm3 (1.2-5.4) 03/18/17 17:05 [place] # 0.5 K/mm3 (0.0-0.8) 03/18/17 17:05 Eos # 0.2 K/mm3 (0.0-0.4) 03/18/17 17:05 Baso # 0.1 K/mm3 (0.0-0.1) 03/18/17 17:05 Seg Neutrophils % 80.7 % (40.0-70.0) H 03/18/17 17:05 Seg Neutrophils # 8.3 K/mm3 (1.8-7.7) H 03/18/17 17:05 PT 13.8 Sec. (12.2-14.9) 03/19/17 04:23 INR 1.01 (0.87-1.13) 03/19/17 04:23 APTT 36.0 Sec. (24.2-36.6) 03/19/17 04:23 Heparin Anti-Xa Level 0.68 U.I./ml (0.3-0.7) 03/19/17 11:55 Sodium 144 mmol/L (137-145) 03/20/17 06:13 Potassium 4.2 mmol/L (3.6-5.0) 03/20/17 06:13 Chloride 105.3 mmol/L (98-107) 03/20/17 06:13 Carbon Dioxide 26 mmol/L (22-30) 03/20/17 06:13 Anion Gap 17 mmol/L 03/20/17 06:13 BUN 61 mg/dL (7-17) H 03/20/17 06:13 Creatinine 5.1 mg/dL (0.7-1.2) H 03/20/17 06:13 Estimated GFR 9 ml/min 03/20/17 06:13 BUN/Creatinine Ratio 12 % 03/20/17 06:13 Glucose 113 mg/dL (65-100) H 03/20/17 06:13 POC Glucose 111 (70-105) H 03/21/17 09:11 Calcium 7.3 mg/dL (8.4-10.2) L 03/20/17 06:13 Total Bilirubin 0.20 mg/dL (0.1-1.2) 03/20/17 06:13 AST 18 units/L (5-40) 03/20/17 06:13 ALT 15 units/L (7-56) 03/20/17 06:13 Alkaline Phosphatase 86 units/L (35-129) 03/20/17 06:13 Total Creatine Kinase 180 units/L (30-135) H 03/19/17 04:23 CK-MB (CK-2) 10.5 ng/mL (0.0-4.0) H 03/19/17 04:23 CK-MB (CK-2) Rel Index 5.8 (0-4) H 03/19/17 04:23 Troponin T 0.141 ng/mL (0.00-0.029) H* 03/19/17 04:23 NT-Pro-B Natriuret Pep 72108 pg/mL (0-900) H 03/18/17 19:43 Total Protein 4.6 g/dL (6.3-8.2) L 03/20/17 06:13 Albumin 2.3 g/dL (3.9-5) L 03/20/17 06:13 Albumin/Globulin Ratio 1.0 % 03/20/17 06:13 Triglycerides 195 mg/dL (2-149) H 03/18/17 17:05 Cholesterol 189 mg/dL (50-199) 03/18/17 17:05 LDL Cholesterol Direct 62 mg/dL (50-130) 03/18/17 17:05 HDL Cholesterol 88 mg/dL (40-59) H 03/18/17 17:05 Cholesterol/HDL Ratio 2.14 % 03/18/17 17:05 Urine Eosinophils 1% (None Seen) 03/20/17 Unknown Urine Creatinine 28.0 mg/dL (0.1-20.0) H 03/20/17 Unknown Protein/Creatinin Ratio 0.25 03/20/17 Unknown Urine Sodium 112 mEq/L 03/20/17 Unknown Urine Total Protein 7 mg/dL (5-11.8) 03/20/17 Unknown Hepatitis A IgM Ab Non-reactive (NonReactive) 03/19/17 20:35 Hep Bs Antigen Non-reactive (Negative) 03/19/17 20:35 Hep B Core IgM Ab Non-reactive (NonReactive) 03/19/17 20:35 Hepatitis C Antibody Non-reactive (NonReactive) 03/19/17 20:35 HIV 1&2 Antibody Rapid Non react (Non React) 03/19/17 14:46 HIV P24 Antigen Non react (Non React) 03/19/17 14:46
--- NOTE | 2017-03-21 11:04 | Progress Note ---
Assessment and Plan Volume overload Chronic renal failure initiated on dialysis Pulmonary edema Bilateral Pleural effusions Chest pain fixed anteroapical defect, no reversible ischemia on MPI 07/2016 echocardiogram reports a preserved left ventricle systolic function done 2016 Hx of Anemia Diabetes Hypertension Hyperlipidemia Elevated troponin, chronic Recommendations: Medical therapy for underlying coronary artery disease to include aspirin, long- acting nitrates, beta blockers and statin therapy as tolerated.. Dialysis for fluid management. Subjective Date of service: 03/21/17 Principal diagnosis: severe renal failure Interval history: Patient reports her breathing is better since dialysis was initiated. HCT trending downwards. Objective Vital Signs Temp Pulse Pulse Resp Resp BP Pulse Ox 03/21/17 10:00 88 88 20 20 97 03/21/17 09:31 99 03/21/17 06:07 75 170/75 03/21/17 05:33 98.7 F 75 18 170/45 99 03/21/17 00:16 99.3 F 76 18 170/59 98 03/20/17 22:46 76 153/55 03/20/17 22:00 81 20 97 03/20/17 20:24 98.3 F 76 20 153/55 97 03/20/17 15:54 98.2 F 72 16 125/50 95 03/20/17 13:44 98.4 F 70 16 151/72 03/20/17 12:30 73 174/78 03/20/17 12:00 75 111/53 03/20/17 11:45 72 112/38 03/20/17 11:40 72 77/30 03/20/17 11:30 72 69/24 03/20/17 11:15 72 190/104 - Physical Examination General: No Apparent Distress Cardiac: Positive: Reg Rate and Rhythm Extremities: Absent: edema - Labs and Meds CBC 03/21/17 Range/Units 05:55 Hgb 9.5 L (10.1-14.3) gm/dl Hct 27.7 L (30.3-42.9) % Plt Count 170 (140-440) K/mm3
[2017-03-21] MEDS: GLUCOTROL PO SCH ×2 (11:17→17:12)
[2017-03-21] MEDS ORDERED: APRESOLINE IV PRN (11:30)
--- NOTE | 2017-03-21 12:31 | Progress Note ---
Assessment and Plan - Patient Problems (1) Volume overload Current Visit: Yes Status: Acute Qualifiers: Hypervolemia type: H Plan to address problem: Improving with HD D/C Lasix drip (2) Acute kidney injury superimposed on CKD Current Visit: No Status: Acute Plan to address problem: Patient likely has advanced Progressive Chronic Kidney Disease secondary to Diabetic Nephropathy and Hypertensive Nephrosclerosis Received hemdialysis on 03/19/17 and 03/20/2017 Will D/C Lasix drip Will assess dialysis needs daily GN- labs pending Renally dose medications Obtain daily weights Monitor I/O's Monitor renal function closely for recovery (3) Acute hyperkalemia Current Visit: Yes Status: Acute Plan to address problem: Resolved (4) Acute congestive heart failure Current Visit: No Status: Acute Qualifiers: Congestive heart failure type: systolic Qualified Code(s): I50.21 - Acute systolic (congestive) heart failure Plan to address problem: As per Cardiology Scheduled for [facility] in a.m (5) Diabetes mellitus Current Visit: Yes Status: Acute Qualifiers: Diabetes mellitus type: D Diabetes mellitus complication status: D Diabetes mellitus complication detail: D Diabetic retinopathy severity: D Proliferative retinopathy type: P Diabetes mellitus macular edema: D Diabetes mellitus exterminator helper termite insulin use: D Laterality: L Chronic kidney disease stage: C Plan to address problem: As per primary team (6) Hypertension Current Visit: Yes Status: Acute Qualifiers: Hypertension type: H Plan to address problem: Continue on anti-hypertensive agents. Subjective Date of service: 03/21/17 Principal diagnosis: severe renal failure Interval history: Patient seen lying in bed with family at bedside. Objective - Vital Signs Vital signs: Vital Signs - 12hr 03/21/17 03/21/17 03/21/17 05:33 06:07 09:31 Temperature 98.7 F Pulse Rate 75 75 Pulse Rate [ Right Radial] Respiratory 18 Rate Respiratory Rate [Chest] Blood Pressure 170/45 170/75 O2 Sat by Pulse 99 99 Oximetry 03/21/17 10:00 Temperature Pulse Rate 88 Pulse Rate [ 88 Right Radial] Respiratory 20 Rate Respiratory 20 Rate [Chest] Blood Pressure O2 Sat by Pulse 97 Oximetry - General Appearance General appearance: well-developed, appears stated age EENT: ATNC, PERRL, hearing intact, vision intact Neck: no JVD, supple Respiratory: Present: Decreased Breath Sounds Cardiology: regular, S1S2 Gastrointestinal: normoactive bowel sounds Integumentary: warm and dry Neurologic: alert and oriented x3 Musculoskeletal: joint swelling Psychiatric: cooperative - Lab 03/21/17 05:55 03/20/17 06:13 Most recent lab results Calcium 7.3 mg/dL (8.4-10.2) L 03/20/17 06:13 Urine Creatinine 28.0 mg/dL (0.1-20.0) H 03/20/17 Unknown Urine Sodium 112 mEq/L 03/20/17 Unknown Urine Total Protein 7 mg/dL (5-11.8) 03/20/17 Unknown
[2017-03-21] MEDS: APRESOLINE PO SCH ×2 (15:31→23:38)
[2017-03-21] MEDS: HEPARIN SUB-Q SCH ×2 (15:40→23:40)
[2017-03-21] MEDS: PRAVACHOL PO SCH (23:38)
[2017-03-22 05:06] LABS: Albumin 2.2 g/dL (3.8-4.8); Gamma Globulin 0.7 g/dL (0.8-1.7)
[2017-03-22 05:42] LABS: Basophils % (Auto) 0.8 % (0.0-1.8); Eosinophils % (Auto) 2.4 % (0.0-4.3); Hematocrit 31.2 % (30.3-42.9); Mean Corpuscular HGB Conc 32 % (30-34); Mean Corpuscular Hemoglobin 28 pg (28-32); Mean Corpuscular Volume 87 fl (79-97); Platelet Count 168 K/mm3 (140-440); Red Blood Count 3.61 M/mm3 (3.65-5.03); Red Cell Distribution Width 13.5 % (13.2-15.2)
[2017-03-22 06:03] LABS: Calcium 7.7 mg/dL (8.4-10.2); Potassium 3.7 mmol/L (3.6-5.0)
[2017-03-22] MEDS: D50W (25GM) Vial IV PRN (06:38)
[2017-03-22] MEDS: APRESOLINE PO SCH ×3 (07:09→21:25)
[2017-03-22] MEDS: NITRO-BID 2% TP SCH ×4 (07:12→17:11)
[2017-03-22] MEDS: GLUCOTROL PO SCH ×2 (07:43→16:56)
[2017-03-22] MEDS: TRENTAL PO SCH ×3 (07:57→21:25)
[2017-03-22] MEDS: SODIUM BICARBONATE PO SCH ×3 (07:58→21:24)
[2017-03-22] MEDS ORDERED: HEPARIN/NS 5000 UNIT/500ML(CATH LAB) 1,000 ML IR ONE (09:28)
--- NOTE | 2017-03-22 10:11 | Progress Note ---
Assessment and Plan (1) Volume overload Current Visit: Yes Status: Acute Qualifiers: Hypervolemia type: H Plan to address problem: Improving with HD D/C Lasix drip (2) Acute kidney injury superimposed on CKD Current Visit: No Status: Acute Plan to address problem: Patient likely has advanced Progressive Chronic Kidney Disease secondary to Diabetic Nephropathy and Hypertensive Nephrosclerosis HD today post [facility] secondary GN work up is negative for HCV, HIV, HBV, normal complement. LISS, antiGBM, ANCA are pending. noted to have + eos in urine but no new medication recently, may consider kidney biopsy when stable Renally dose medications Obtain daily weights Monitor I/O's Monitor renal function closely for recovery (3) Acute hyperkalemia Current Visit: Yes Status: Acute Plan to address problem: Resolved (4) Acute congestive heart failure Current Visit: No Status: Acute Qualifiers: Congestive heart failure type: systolic Qualified Code(s): I50.21 - Acute systolic (congestive) heart failure Plan to address problem: As per Cardiology [facility] today (5) Diabetes mellitus Current Visit: Yes Status: Acute Qualifiers: Diabetes mellitus type: D Diabetes mellitus complication status: D Diabetes mellitus complication detail: D Diabetic retinopathy severity: D Proliferative retinopathy type: P Diabetes mellitus macular edema: D Diabetes mellitus nursing home insulin use: D Laterality: L Chronic kidney disease stage: C Plan to address problem: As per primary team (6) Hypertension Current Visit: Yes Status: Acute Qualifiers: Hypertension type: H Plan to address problem: Continue on anti-hypertensive agents. Subjective Date of service: 03/22/17 Principal diagnosis: severe renal failure Interval history: SOB is improving Objective - Vital Signs Vital signs: Vital Signs - 12hr 03/21/17 03/21/17 03/22/17 23:36 23:38 00:19 Temperature 98.1 F Pulse Rate 79 79 71 Pulse Rate [ Apical] Respiratory 18 Rate Blood Pressure 173/73 173/73 157/49 O2 Sat by Pulse 99 Oximetry 03/22/17 03/22/17 03/22/17 04:07 07:09 07:12 Temperature 98.4 F Pulse Rate 70 71 71 Pulse Rate [ Apical] Respiratory 18 Rate Blood Pressure 195/51 195/51 195/51 O2 Sat by Pulse 98 Oximetry 03/22/17 03/22/17 03/22/17 08:04 08:13 09:38 Temperature 98.2 F Pulse Rate 72 Pulse Rate [ 69 Apical] Respiratory 22 Rate Blood Pressure 156/67 O2 Sat by Pulse 100 98 Oximetry - General Appearance General appearance: well-developed, well-nourished EENT: ATNC Neck: no JVD, no carotid bruit Respiratory: Present: Decreased Breath Sounds Cardiology: regular, S1S2 Gastrointestinal: normoactive bowel sounds, obese Integumentary: no rash, warm and dry Neurologic: no focal deficit, no asterixis Musculoskeletal: other (trace pitting edema in BLE) Psychiatric: mood/affect appropriate, cooperative - Lab 03/22/17 05:20 03/22/17 07:00 Most recent lab results Calcium 7.7 mg/dL (8.4-10.2) L 03/22/17 05:20 Urine Creatinine 28.0 mg/dL (0.1-20.0) H 03/20/17 Unknown Urine Sodium 112 mEq/L 03/20/17 Unknown Urine Total Protein 7 mg/dL (5-11.8) 03/20/17 Unknown
[2017-03-22] MEDS ORDERED: NACL 0.9% 250ML 250 ML ONE (10:12)
[2017-03-22] MEDS: SUBLIMAZE ONE ×2 (10:18→10:32)
[2017-03-22] MEDS: VERSED ONE ×2 (10:18→10:32)
[2017-03-22] MEDS: XYLOCAINE 2% INFILTRATI ONE ×2 (10:19→11:00)
[2017-03-22] MEDS ORDERED: NITROGLYCERIN SYRINGE 3 ML ONE (10:48)
[2017-03-22] MEDS: CALAN ONE (10:51)
[2017-03-22] MEDS: HEPARIN 10,000 UNITS/10 ML ONE (10:51)
--- NOTE | 2017-03-22 12:13 | Cardiac Catherization Report ---
REASON FOR PROCEDURE: The patient is a 61-year-old woman, who has end-stage renal disease on hemodialysis, underwent a thallium stress test that was reported abnormal. She was recommended for cardiac catheterization procedure. PROCEDURE: The patient was brought down to the cardiac catheterization laboratory and prepped and draped under sterile conditions after informed consent. Cardiac catheterization attempt was ultimately unsuccessful. We found that the patient had absolutely no tactile pulses in both femoral artery positions, following which we then turned our attention to the right radial artery, which was also devoid of tactile pulse. In addition, attempted access via the right brachial artery was also unsuccessful due to the absence of a tactile pulse. The use of an ultrasound for cannulation of the femoral and radial arteries were also unsuccessful. CONCLUSION: Cardiac catheterization procedure is unsuccessful, and was aborted, due to the absence of optimal bilateral femoral, right radial and right brachial artery access. JOB# [id number] PAGE/CHIDI
--- NOTE | 2017-03-22 12:27 | Progress Note ---
Assessment and Plan Assessment and plan: --Non-ST elevation [place]; continue aspirin and beta blockers BARBER inhibitor nitrates and statins, left heart cath canceled , nonpalpable brachial radial and bilateral femur , follow CT angiogram abdominal light per cardiology --Acute on chronic renal failure stage IV; on hemodialysis per nephrology, --Type 2 diabetes mellitus; blood sugars moderate control Closely monitor blood sugars, Accu-Cheks sliding scale coverage ADA diet and low dose 7030 insulin --Acute on chronic systolic congestive heart failure Ejection fraction 40-45%, continue anti-failure medications --Dyslipidemia; continue current lipid-lowering medications --Hypertension; moderate control, continue current antihypertensives and when necessary medications --Morbid obesity; advised dietary modification and exercise as tolerated and weight reduction when medically stable --Moderate protein calorie malnutrition; supportive care, nutrition supplements --DVT prophylaxis with heparin --Discharge planning per Case management, outpatient HD chair scheduling when patient is medically stable Treatment plan discussed with the patient, her son at the bedside and her nurse Consults and recommendations noted History Interval history: Patient seen and examined medical records reviewed Scheduled for heart cath today, however Heart cath was canceled due to absent palpable arterial pulses, bilateral femur , right radial right brachial, cardiology recommended CT angiogram of the abdominal aorta Patient has no complaints, vital signs stable Hospitalist Physical - Constitutional Vitals: Temp Pulse Resp BP Pulse Ox 98.2 F 69 22 156/67 98 03/22/17 08:04 03/22/17 09:38 03/22/17 08:04 03/22/17 08:04 03/22/17 08:13 General appearance: Present: no acute distress, well-nourished, obese - EENT Eyes: Present: PERRL, EOM intact - Neck Neck: Present: supple, normal ROM - Respiratory Respiratory effort: normal Respiratory: bilateral: diminished, rales, negative: rhonchi, wheezing - Cardiovascular Rhythm: regular Heart Sounds: Present: S1 & S2 - Extremities Extremities: no ischemia, No edema - Abdominal General gastrointestinal: soft, non-tender, non-distended, normal bowel sounds - Integumentary Integumentary: Present: clear, warm - Psychiatric Psychiatric: appropriate mood/affect, cooperative - Neurologic Neurologic: CNII-XII intact, moves all extremities Results - Labs CBC & Chem 7: 03/22/17 05:20 03/22/17 07:00 Labs: Laboratory Last Values WBC 10.0 K/mm3 (4.5-11.0) 03/22/17 05:20 RBC 3.61 M/mm3 (3.65-5.03) L 03/22/17 05:20 Hgb 10.0 gm/dl (10.1-14.3) L 03/22/17 05:20 Hct 31.2 % (30.3-42.9) 03/22/17 05:20 MCV 87 fl (79-97) 03/22/17 05:20 MCH 28 pg (28-32) 03/22/17 05:20 MCHC 32 % (30-34) 03/22/17 05:20 RDW 13.5 % (13.2-15.2) 03/22/17 05:20 Plt Count 168 K/mm3 (140-440) 03/22/17 05:20 Lymph % (Auto) 18.3 % (13.4-35.0) 03/22/17 05:20 [place] % (Auto) 8.3 % (0.0-7.3) H 03/22/17 05:20 Eos % (Auto) 2.4 % (0.0-4.3) 03/22/17 05:20 Baso % (Auto) 0.8 % (0.0-1.8) 03/22/17 05:20 Lymph # 1.8 K/mm3 (1.2-5.4) 03/22/17 05:20 [place] # 0.8 K/mm3 (0.0-0.8) 03/22/17 05:20 Eos # 0.2 K/mm3 (0.0-0.4) 03/22/17 05:20 Baso # 0.1 K/mm3 (0.0-0.1) 03/22/17 05:20 Seg Neutrophils % 70.2 % (40.0-70.0) H 03/22/17 05:20 Seg Neutrophils # 7.0 K/mm3 (1.8-7.7) 03/22/17 05:20 PT 13.8 Sec. (12.2-14.9) 03/19/17 04:23 INR 1.01 (0.87-1.13) 03/19/17 04:23 APTT 36.0 Sec. (24.2-36.6) 03/19/17 04:23 Heparin Anti-Xa Level 0.68 U.I./ml (0.3-0.7) 03/19/17 11:55 Sodium 143 mmol/L (137-145) 03/22/17 05:20 Potassium 3.7 mmol/L (3.6-5.0) 03/22/17 05:20 Chloride 101.0 mmol/L (98-107) 03/22/17 05:20 Carbon Dioxide 27 mmol/L (22-30) 03/22/17 05:20 Anion Gap 19 mmol/L 03/22/17 05:20 BUN 38 mg/dL (7-17) H 03/22/17 05:20 Creatinine 5.0 mg/dL (0.7-1.2) H 03/22/17 05:20 Estimated GFR 9 ml/min 03/22/17 05:20 BUN/Creatinine Ratio 8 % 03/22/17 05:20 Glucose 89 mg/dL (65-100) 03/22/17 07:00 POC Glucose 78 (70-105) 03/22/17 09:03 Calcium 7.7 mg/dL (8.4-10.2) L 03/22/17 05:20 Total Bilirubin 0.20 mg/dL (0.1-1.2) 03/20/17 06:13 AST 18 units/L (5-40) 03/20/17 06:13 ALT 15 units/L (7-56) 03/20/17 06:13 Alkaline Phosphatase 86 units/L (35-129) 03/20/17 06:13 Total Creatine Kinase 180 units/L (30-135) H 03/19/17 04:23 CK-MB (CK-2) 10.5 ng/mL (0.0-4.0) H 03/19/17 04:23 CK-MB (CK-2) Rel Index 5.8 (0-4) H 03/19/17 04:23 Troponin T 0.141 ng/mL (0.00-0.029) H* 03/19/17 04:23 NT-Pro-B Natriuret Pep 56094 pg/mL (0-900) H 03/18/17 19:43 Serum Total Protein 5.1 g/dL (6.1-8.1) L 03/19/17 14:46 Total Protein 4.6 g/dL (6.3-8.2) L 03/20/17 06:13 Albumin 2.3 g/dL (3.9-5) L 03/20/17 06:13 Albumin/Globulin Ratio 1.0 % 03/20/17 06:13 Gedgp-4-Oowytsoax 0.4 g/dL (0.2-0.3) H 03/19/17 14:46 Ckrmw-4-Osnqbjibr 1.0 g/dL (0.5-0.9) H 03/19/17 14:46 Beta Globulins 0.4 g/dL (0.2-0.5) 03/19/17 14:46 Gamma Globulins 0.7 g/dL (0.8-1.7) L 03/19/17 14:46 Abnorm Protein Band 1 see below 03/19/17 14:46 PEP Interpretation see below H 03/19/17 14:46 Triglycerides 195 mg/dL (2-149) H 03/18/17 17:05 Cholesterol 189 mg/dL (50-199) 03/18/17 17:05 LDL Cholesterol Direct 62 mg/dL (50-130) 03/18/17 17:05 HDL Cholesterol 88 mg/dL (40-59) H 03/18/17 17:05 Cholesterol/HDL Ratio 2.14 % 03/18/17 17:05 Urine Eosinophils 1% (None Seen) 03/20/17 Unknown Urine Creatinine 28.0 mg/dL (0.1-20.0) H 03/20/17 Unknown Protein/Creatinin Ratio 0.25 03/20/17 Unknown Urine Sodium 112 mEq/L 03/20/17 Unknown Urine Total Protein 7 mg/dL (5-11.8) 03/20/17 Unknown Glomerular Base Mem IgG <1.0 AI (<1.0) 03/19/17 14:46 Complement C3 123 mg/dL (90-180) 03/19/17 14:46 Complement C4 31 mg/dL (16-47) 03/19/17 14:46 Hepatitis A IgM Ab Non-reactive (NonReactive) 03/19/17 20:35 Hep Bs Antigen Non-reactive (Negative) 03/19/17 20:35 Hep B Core IgM Ab Non-reactive (NonReactive) 03/19/17 20:35 Hepatitis C Antibody Non-reactive (NonReactive) 03/19/17 20:35 HIV 1&2 Antibody Rapid Non react (Non React) 03/19/17 14:46 HIV P24 Antigen Non react (Non React) 03/19/17 14:46
--- NOTE | 2017-03-22 12:52 | Event Note ---
Date: 03/22/17 Cardiac cath procedure abhorted due to absence of palpable arterial pulses, bilateral femoral, R radial and R brachial. We will order a CT angio of the abdominal aorta with runoff to assess for future arterial access.
[2017-03-22] MEDS ORDERED: NACL 0.9 (PRIMING MACHINE ONLY DIALYSIS) MC ONE (14:56)
[2017-03-22] MEDS: HEPARIN IV PRN (15:26)
[2017-03-22] MEDS: ASPIRIN PO SCH (16:56)
[2017-03-22] MEDS: PROTONIX PO SCH (16:57)
[2017-03-22] MEDS: HEPARIN SUB-Q SCH ×2 (16:59→21:25)
[2017-03-22] MEDS: LOPRESSOR PO SCH ×2 (17:02→21:24)
[2017-03-22] MEDS: PRAVACHOL PO SCH (21:24)
[2017-03-23 05:23] LABS: Basophils % (Auto) 0.8 % (0.0-1.8); Eosinophils % (Auto) 3.3 % (0.0-4.3); Hematocrit 31.5 % (30.3-42.9); Hemoglobin 10.3 gm/dl (10.1-14.3); Mean Corpuscular HGB Conc 33 % (30-34); Mean Corpuscular Hemoglobin 29 pg (28-32); Mean Corpuscular Volume 88 fl (79-97); Platelet Count 151 K/mm3 (140-440); Red Blood Count 3.57 M/mm3 (3.65-5.03); Red Cell Distribution Width 14.2 % (13.2-15.2); White Blood Count 8.9 K/mm3 (4.5-11.0)
[2017-03-23 05:37] LABS: Calcium 7.7 mg/dL (8.4-10.2); Chloride 101.2 mmol/L (98-107); Phosphorous 3.8 mg/dL (2.5-4.5); Potassium 3.7 mmol/L (3.6-5.0)
[2017-03-23] MEDS: APRESOLINE PO SCH ×3 (06:10→22:21)
[2017-03-23] MEDS: NITRO-BID 2% TP SCH ×4 (06:11→18:32)
[2017-03-23] MEDS: D50W (25GM) Vial IV PRN ×3 (06:38→17:20)
[2017-03-23] MEDS: SODIUM BICARBONATE PO SCH ×3 (08:00→22:21)
[2017-03-23] MEDS: TRENTAL PO SCH ×3 (08:00→22:22)
[2017-03-23] MEDS: GLUCOTROL PO SCH ×2 (08:00→17:21)
[2017-03-23] MEDS: LOPRESSOR PO SCH ×2 (10:00→22:21)
[2017-03-23] MEDS: ASPIRIN PO SCH (10:00)
[2017-03-23] MEDS: HEPARIN SUB-Q SCH ×2 (10:00→22:22)
[2017-03-23] MEDS: PROTONIX PO SCH (10:00)
--- NOTE | 2017-03-23 11:01 | Progress Note ---
Assessment and Plan Volume overload Chronic renal failure initiated on dialysis Pulmonary edema Bilateral Pleural effusions Chest pain Cardiac cath procedure aborted due to absence of palpable arterial pulses, bilateral femoral, R radial and R brachial. fixed anteroapical defect, no reversible ischemia on MPI 07/2016 echocardiogram reports a preserved left ventricle systolic function done 2016 Hx of Anemia Diabetes Hypertension Hyperlipidemia Elevated troponin, chronic Recommendations: Medical therapy for underlying coronary artery disease to include aspirin, long- acting nitrates, beta blockers and statin therapy as tolerated.. Dialysis for fluid management. CT angio of the abdominal aorta with runoff to assess for future arterial access. Subjective Date of service: 03/23/17 Principal diagnosis: severe renal failure Interval history: No cardiac events overnight. Objective Vital Signs Temp Pulse Resp BP Pulse Ox 03/23/17 06:11 76 140/69 03/23/17 06:10 76 140/69 03/23/17 00:21 97.9 F 76 18 140/69 100 03/22/17 22:00 75 18 03/22/17 21:25 74 149/68 03/22/17 21:24 74 149/68 03/22/17 20:13 98 03/22/17 19:47 98.2 F 74 18 149/68 100 03/22/17 17:11 80 152/63 03/22/17 17:02 80 152/63 03/22/17 16:47 98.4 F 81 20 152/63 98 03/22/17 15:05 98.5 F 74 16 133/63 03/22/17 14:45 73 108/56 03/22/17 14:30 72 120/63 03/22/17 14:15 72 128/69 03/22/17 14:00 71 146/72 03/22/17 13:45 74 145/49 03/22/17 13:30 74 99/51 03/22/17 13:15 72 76/35 03/22/17 13:00 83 97/51 03/22/17 12:45 68 135/70 03/22/17 12:30 80 95/46 03/22/17 12:15 72 168/85 03/22/17 12:05 98.3 F 73 16 184/90 - Physical Examination General: No Apparent Distress Cardiac: Positive: Reg Rate and Rhythm - Labs and Meds CBC 03/23/17 Range/Units 04:24 WBC 8.9 (4.5-11.0) K/mm3 RBC 3.57 L (3.65-5.03) M/mm3 Hgb 10.3 (10.1-14.3) gm/dl Hct 31.5 (30.3-42.9) % Plt Count 151 (140-440) K/mm3 Lymph # 1.9 (1.2-5.4) K/mm3 [place] # 0.7 (0.0-0.8) K/mm3 Eos # 0.3 (0.0-0.4) K/mm3 Baso # 0.1 (0.0-0.1) K/mm3 Comprehensive Metabolic Panel 03/23/17 Range/Units 04:24 Sodium 143 (137-145) mmol/L Potassium 3.7 (3.6-5.0) mmol/L Chloride 101.2 (98-107) mmol/L Carbon Dioxide 28 (22-30) mmol/L BUN 21 H (7-17) mg/dL Creatinine 4.1 H (0.7-1.2) mg/dL Glucose 56 L (65-100) mg/dL Calcium 7.7 L (8.4-10.2) mg/dL
[2017-03-23] MEDS ORDERED: D50W (25GM) Vial IV ONE (12:00)
--- NOTE | 2017-03-23 12:21 | Progress Note ---
Assessment and Plan - Patient Problems (1) Volume overload Current Visit: Yes Status: Acute Qualifiers: Hypervolemia type: H Plan to address problem: Improving on HD (2) Acute kidney injury superimposed on CKD Current Visit: No Status: Acute Plan to address problem: Received hemdialysis yesterday for UF and clearance Hemodialysis today after cardiac procedure Will assess dialysis needs daily GN-work-up in progress Renally dose medications Obtain daily weights Monitor I/O's Case management consulted for outpatient HD placement Will need vasc cath switched to perm-cath prior to discharge (3) Acute hyperkalemia Current Visit: Yes Status: Acute Plan to address problem: Resolved (4) Acute congestive heart failure Current Visit: No Status: Acute Qualifiers: Congestive heart failure type: systolic Qualified Code(s): I50.21 - Acute systolic (congestive) heart failure Plan to address problem: "Cardiac cath procedure aborted due to absence of palpable arterial pulses, bilateral femoral, R radial and R brachial. We will order a CT angio of the abdominal aorta with runoff to assess for future arterial access", as per Cardiology Procedure is rescheduled for today (5) Diabetes mellitus Current Visit: Yes Status: Acute Qualifiers: Diabetes mellitus type: D Diabetes mellitus complication status: D Diabetes mellitus complication detail: D Diabetic retinopathy severity: D Proliferative retinopathy type: P Diabetes mellitus macular edema: D Diabetes mellitus long-term insulin use: D Laterality: L Chronic kidney disease stage: C Plan to address problem: As per primary team (6) Hypertension Current Visit: Yes Status: Acute Qualifiers: Hypertension type: H Plan to address problem: Continue on anti-hypertensive agents. Subjective Date of service: 03/23/17 Principal diagnosis: severe renal failure Interval history: Patient seen lying in bed with family at bedside. States feeling better. Objective - Vital Signs Vital signs: Vital Signs - 12hr 03/23/17 03/23/17 03/23/17 00:21 06:10 06:11 Temperature 97.9 F Pulse Rate 76 76 76 Respiratory 18 Rate Blood Pressure 140/69 140/69 140/69 O2 Sat by Pulse 100 Oximetry - General Appearance General appearance: well-developed, appears stated age EENT: ATNC, PERRL, hearing intact, vision intact Neck: no JVD, supple Respiratory: Present: Decreased Breath Sounds Cardiology: regular, S1S2 Gastrointestinal: normoactive bowel sounds Integumentary: warm and dry Neurologic: alert and oriented x3 Musculoskeletal: other (mild edema to bLE) Psychiatric: cooperative - Lab 03/23/17 04:24 03/23/17 04:24 Most recent lab results Calcium 7.7 mg/dL (8.4-10.2) L 03/23/17 04:24 Phosphorus 3.80 mg/dL (2.5-4.5) 03/23/17 04:24 Urine Creatinine 28.0 mg/dL (0.1-20.0) H 03/20/17 Unknown Urine Sodium 112 mEq/L 03/20/17 Unknown Urine Total Protein 7 mg/dL (5-11.8) 03/20/17 Unknown
[2017-03-23] MEDS: HEPARIN IV PRN (19:36)
--- NOTE | 2017-03-23 19:42 | Progress Note ---
Assessment and Plan Assessment and plan: --Non-ST elevation [place]; continue aspirin and beta blockers BARBER inhibitor nitrates and statins, left heart cath canceled , -- nonpalpable brachial radial and bilateral femur , follow CT angiogram abdominal aorta per cardiology --Acute on chronic renal failure stage IV; on hemodialysis per nephrology, --Type 2 diabetes mellitus; blood sugars moderate control Closely monitor blood sugars, Accu-Cheks sliding scale coverage ADA diet and low dose 7030 insulin --Acute on chronic systolic congestive heart failure Ejection fraction 40-45%, continue anti-failure medications --Dyslipidemia; continue current lipid-lowering medications --Hypertension; moderate control, continue current antihypertensives and when necessary medications --Morbid obesity; advised dietary modification and exercise as tolerated and weight reduction when medically stable --Moderate protein calorie malnutrition; supportive care, nutrition supplements --DVT prophylaxis with heparin --Discharge planning per Case management, outpatient HD chair scheduling when patient is medically stable Treatment plan discussed with the patient, her son at the bedside and her nurse Consults and recommendations noted History Interval history: Patient seen and examined medical records reviewed Feels better no new complaints Elevating CT angiogram of the aorta and the [facility] Hospitalist Physical - Constitutional Vitals: Temp Pulse Resp BP Pulse Ox 98.6 F 81 18 183/72 100 03/23/17 16:00 03/23/17 16:00 03/23/17 16:00 03/23/17 16:00 03/23/17 16:00 General appearance: Present: no acute distress, well-nourished, obese - EENT Eyes: Present: PERRL, EOM intact - Neck Neck: Present: supple, normal ROM - Respiratory Respiratory effort: normal Respiratory: bilateral: diminished, negative: rales, rhonchi, wheezing - Cardiovascular Rhythm: regular Heart Sounds: Present: S1 & S2 - Extremities Extremities: no ischemia, No edema - Abdominal General gastrointestinal: soft, non-tender, non-distended, normal bowel sounds - Integumentary Integumentary: Present: clear, warm - Psychiatric Psychiatric: appropriate mood/affect, cooperative - Neurologic Neurologic: CNII-XII intact, moves all extremities Results - Labs CBC & Chem 7: 03/23/17 04:24 03/23/17 04:24 Labs: Laboratory Last Values WBC 8.9 K/mm3 (4.5-11.0) 03/23/17 04:24 RBC 3.57 M/mm3 (3.65-5.03) L 03/23/17 04:24 Hgb 10.3 gm/dl (10.1-14.3) 03/23/17 04:24 Hct 31.5 % (30.3-42.9) 03/23/17 04:24 MCV 88 fl (79-97) 03/23/17 04:24 MCH 29 pg (28-32) 03/23/17 04:24 MCHC 33 % (30-34) 03/23/17 04:24 RDW 14.2 % (13.2-15.2) 03/23/17 04:24 Plt Count 151 K/mm3 (140-440) 03/23/17 04:24 Lymph % (Auto) 21.1 % (13.4-35.0) 03/23/17 04:24 [place] % (Auto) 7.4 % (0.0-7.3) H 03/23/17 04:24 Eos % (Auto) 3.3 % (0.0-4.3) 03/23/17 04:24 Baso % (Auto) 0.8 % (0.0-1.8) 03/23/17 04:24 Lymph # 1.9 K/mm3 (1.2-5.4) 03/23/17 04:24 [place] # 0.7 K/mm3 (0.0-0.8) 03/23/17 04:24 Eos # 0.3 K/mm3 (0.0-0.4) 03/23/17 04:24 Baso # 0.1 K/mm3 (0.0-0.1) 03/23/17 04:24 Seg Neutrophils % 67.4 % (40.0-70.0) 03/23/17 04:24 Seg Neutrophils # 6.0 K/mm3 (1.8-7.7) 03/23/17 04:24 PT 13.8 Sec. (12.2-14.9) 03/19/17 04:23 INR 1.01 (0.87-1.13) 03/19/17 04:23 APTT 36.0 Sec. (24.2-36.6) 03/19/17 04:23 Heparin Anti-Xa Level 0.68 U.I./ml (0.3-0.7) 03/19/17 11:55 Sodium 143 mmol/L (137-145) 03/23/17 04:24 Potassium 3.7 mmol/L (3.6-5.0) 03/23/17 04:24 Chloride 101.2 mmol/L (98-107) 03/23/17 04:24 Carbon Dioxide 28 mmol/L (22-30) 03/23/17 04:24 Anion Gap 18 mmol/L 03/23/17 04:24 BUN 21 mg/dL (7-17) H 03/23/17 04:24 Creatinine 4.1 mg/dL (0.7-1.2) H 03/23/17 04:24 Estimated GFR 11 ml/min 03/23/17 04:24 BUN/Creatinine Ratio 5 % 03/23/17 04:24 Glucose 56 mg/dL (65-100) L 03/23/17 04:24 POC Glucose < 40 (70-105) L 03/23/17 17:10 Calcium 7.7 mg/dL (8.4-10.2) L 03/23/17 04:24 Phosphorus 3.80 mg/dL (2.5-4.5) 03/23/17 04:24 Total Bilirubin 0.20 mg/dL (0.1-1.2) 03/20/17 06:13 AST 18 units/L (5-40) 03/20/17 06:13 ALT 15 units/L (7-56) 03/20/17 06:13 Alkaline Phosphatase 86 units/L (35-129) 03/20/17 06:13 Total Creatine Kinase 180 units/L (30-135) H 03/19/17 04:23 CK-MB (CK-2) 10.5 ng/mL (0.0-4.0) H 03/19/17 04:23 CK-MB (CK-2) Rel Index 5.8 (0-4) H 03/19/17 04:23 Troponin T 0.141 ng/mL (0.00-0.029) H* 03/19/17 04:23 NT-Pro-B Natriuret Pep 02061 pg/mL (0-900) H 03/18/17 19:43 Serum Total Protein 5.1 g/dL (6.1-8.1) L 03/19/17 14:46 Total Protein 4.6 g/dL (6.3-8.2) L 03/20/17 06:13 Albumin 2.3 g/dL (3.9-5) L 03/20/17 06:13 Albumin/Globulin Ratio 1.0 % 03/20/17 06:13 Azcbn-8-Zafgsddgm 0.4 g/dL (0.2-0.3) H 03/19/17 14:46 Muktb-9-Pxvewbbim 1.0 g/dL (0.5-0.9) H 03/19/17 14:46 Beta Globulins 0.4 g/dL (0.2-0.5) 03/19/17 14:46 Gamma Globulins 0.7 g/dL (0.8-1.7) L 03/19/17 14:46 Abnorm Protein Band 1 see below 03/19/17 14:46 PEP Interpretation see below H 03/19/17 14:46 Triglycerides 195 mg/dL (2-149) H 03/18/17 17:05 Cholesterol 189 mg/dL (50-199) 03/18/17 17:05 LDL Cholesterol Direct 62 mg/dL (50-130) 03/18/17 17:05 HDL Cholesterol 88 mg/dL (40-59) H 03/18/17 17:05 Cholesterol/HDL Ratio 2.14 % 03/18/17 17:05 Urine Eosinophils 1% (None Seen) 03/20/17 Unknown Urine Creatinine 28.0 mg/dL (0.1-20.0) H 03/20/17 Unknown Protein/Creatinin Ratio 0.25 03/20/17 Unknown Urine Sodium 112 mEq/L 03/20/17 Unknown Urine Total Protein 7 mg/dL (5-11.8) 03/20/17 Unknown LISS Screen Negative (Negative) 03/19/17 14:46 Double Strand DNA Ab <1 IU/mL (<=4) 03/19/17 14:46 Glomerular Base Mem IgG <1.0 AI (<1.0) 03/19/17 14:46 Complement C3 123 mg/dL (90-180) 03/19/17 14:46 Complement C4 31 mg/dL (16-47) 03/19/17 14:46 Tot Complement (CH50) >60 U/mL (31-60) H 03/19/17 14:46 Hepatitis A IgM Ab Non-reactive (NonReactive) 03/19/17 20:35 Hep Bs Antigen Non-reactive (Negative) 03/19/17 20:35 Hep B Core IgM Ab Non-reactive (NonReactive) 03/19/17 20:35 Hepatitis C Antibody Non-reactive (NonReactive) 03/19/17 20:35 HIV 1&2 Antibody Rapid Non react (Non React) 03/19/17 14:46 HIV P24 Antigen Non react (Non React) 03/19/17 14:46
[2017-03-23] MEDS ORDERED: NACL 0.9 (PRIMING MACHINE ONLY DIALYSIS) MC ONE (19:48)
[2017-03-23] MEDS: CALAN ONE (22:09)
[2017-03-23] MEDS: HEPARIN 10,000 UNITS/10 ML ONE (22:09)
[2017-03-23] MEDS: PRAVACHOL PO SCH (22:22)
[2017-03-24 05:31] LABS: Basophils % (Auto) 0.5 % (0.0-1.8); Eosinophils % (Auto) 2.9 % (0.0-4.3); Hematocrit 30.4 % (30.3-42.9); Mean Corpuscular HGB Conc 33 % (30-34); Mean Corpuscular Hemoglobin 29 pg (28-32); Mean Corpuscular Volume 88 fl (79-97); Platelet Count 136 K/mm3 (140-440); Red Blood Count 3.47 M/mm3 (3.65-5.03); Red Cell Distribution Width 13.9 % (13.2-15.2)
[2017-03-24] MEDS: APRESOLINE PO SCH ×3 (05:37→22:07)
[2017-03-24 05:38] LABS: Calcium 7.6 mg/dL (8.4-10.2); Chloride 99.2 mmol/L (98-107); Potassium 3.5 mmol/L (3.6-5.0)
[2017-03-24] MEDS: NITRO-BID 2% TP SCH ×4 (05:44→18:14)
[2017-03-24] MEDS: GLUCOTROL PO SCH ×2 (08:00→18:13)
--- NOTE | 2017-03-24 09:21 | Progress Note ---
Assessment and Plan Volume overload Chronic renal failure initiated on dialysis Pulmonary edema Bilateral Pleural effusions Chest pain Cardiac cath procedure aborted due to absence of palpable arterial pulses, bilateral femoral, R radial and R brachial. fixed anteroapical defect, no reversible ischemia on MPI 07/2016 echocardiogram reports a preserved left ventricle systolic function done 2016 Hx of Anemia Diabetes Hypertension Hyperlipidemia Elevated troponin, chronic Recommendations: Medical therapy for underlying coronary artery disease to include aspirin, long- acting nitrates, beta blockers and statin therapy as tolerated.. Dialysis for fluid management. Awaiting result of abdominal and LE arterial doppler to re-evaluate access site for coronary angiography Subjective Date of service: 03/24/17 Principal diagnosis: severe renal failure Interval history: No events overnight No events on tele Objective Vital Signs Temp Pulse Pulse Resp Resp BP BP 03/24/17 07:57 98.9 F 81 20 134/51 03/24/17 04:36 98.2 F 80 18 103/82 03/24/17 00:28 98.7 F 83 20 114/53 03/23/17 22:28 03/23/17 22:00 80 03/23/17 21:58 98.2 F 84 20 143/42 03/23/17 21:35 98.3 F 64 18 144/64 03/23/17 21:30 70 114/56 03/23/17 21:15 72 110/54 03/23/17 21:00 74 112/56 03/23/17 20:45 76 110/58 03/23/17 20:30 78 112/48 03/23/17 20:15 77 106/51 03/23/17 20:00 77 106/56 03/23/17 19:45 76 109/52 03/23/17 19:30 79 99/50 03/23/17 19:15 74 132/76 03/23/17 19:00 76 130/70 03/23/17 18:45 77 148/75 03/23/17 18:30 98.4 F 78 18 164/79 03/23/17 16:00 98.6 F 81 18 183/72 03/23/17 12:00 98.6 F 86 147/44 03/23/17 10:00 80 82 20 18 138/70 Pulse Ox 03/24/17 07:57 95 03/24/17 04:36 95 03/24/17 00:28 94 03/23/17 22:28 95 03/23/17 22:00 03/23/17 21:58 100 03/23/17 21:35 03/23/17 21:30 03/23/17 21:15 03/23/17 21:00 03/23/17 20:45 03/23/17 20:30 03/23/17 20:15 03/23/17 20:00 03/23/17 19:45 03/23/17 19:30 03/23/17 19:15 03/23/17 19:00 03/23/17 18:45 03/23/17 18:30 03/23/17 16:00 100 03/23/17 12:00 03/23/17 10:00 99 - Physical Examination General: No Apparent Distress Neck: Positive: neck supple, trachea midline Cardiac: Positive: Reg Rate and Rhythm Lungs: Positive: Normal Exam Extremities: Absent: edema - Labs and Meds CBC 03/24/17 Range/Units 04:36 WBC 9.0 (4.5-11.0) K/mm3 RBC 3.47 L (3.65-5.03) M/mm3 Hgb 10.0 L (10.1-14.3) gm/dl Hct 30.4 (30.3-42.9) % Plt Count 136 L (140-440) K/mm3 Lymph # 1.3 (1.2-5.4) K/mm3 [place] # 0.6 (0.0-0.8) K/mm3 Eos # 0.3 (0.0-0.4) K/mm3 Baso # 0.0 (0.0-0.1) K/mm3 Comprehensive Metabolic Panel 03/24/17 Range/Units 04:36 Sodium 139 (137-145) mmol/L Potassium 3.5 L (3.6-5.0) mmol/L Chloride 99.2 (98-107) mmol/L Carbon Dioxide 29 (22-30) mmol/L BUN 15 (7-17) mg/dL Creatinine 3.1 H (0.7-1.2) mg/dL Glucose 240 H (65-100) mg/dL Calcium 7.6 L (8.4-10.2) mg/dL
--- NOTE | 2017-03-24 09:40 | Progress Note ---
Assessment and Plan (1) Volume overload Current Visit: Yes Status: Acute Qualifiers: Hypervolemia type: H Plan to address problem: UF with HD (2) Severe renal failure on HD Current Visit: No Status: Acute Plan to address problem: no indicationf or HD today Will assess dialysis needs daily GN-work-up in progress, negative so far Renally dose medications Obtain daily weights Monitor I/O's Case management consulted for outpatient HD placement Will need vasc cath switched to perm-cath prior to discharge (3) Acute hyperkalemia Current Visit: Yes Status: Acute Plan to address problem: Resolved (4) Acute congestive heart failure Current Visit: No Status: Acute Qualifiers: Congestive heart failure type: systolic Qualified Code(s): I50.21 - Acute systolic (congestive) heart failure Plan to address problem: "Cardiac cath procedure aborted due to absence of palpable arterial pulses, bilateral femoral, R radial and R brachial. 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 Subjective Date of service: 03/24/17 Principal diagnosis: severe renal failure Interval history: tolerated HD yesterday Objective - Vital Signs Vital signs: Vital Signs - 12hr 03/23/17 03/23/17 03/23/17 21:35 21:58 22:00 Temperature 98.3 F 98.2 F Pulse Rate 64 84 80 Respiratory 18 20 Rate Blood Pressure 144/64 143/42 O2 Sat by Pulse 100 Oximetry 03/23/17 03/24/17 03/24/17 22:28 00:28 04:36 Temperature 98.7 F 98.2 F Pulse Rate 83 80 Respiratory 20 18 Rate Blood Pressure 114/53 103/82 O2 Sat by Pulse 95 94 95 Oximetry 03/24/17 07:57 Temperature 98.9 F Pulse Rate 81 Respiratory 20 Rate Blood Pressure 134/51 O2 Sat by Pulse 95 Oximetry - General Appearance General appearance: well-developed, well-nourished, obese EENT: ATNC, PERRL, mucous membranes moist Neck: no JVD, no carotid bruit Respiratory: Present: Clear to Ascultation. Absent: Rales, Ronchi, Wheezes Cardiology: regular, S1S2 Gastrointestinal: normoactive bowel sounds Integumentary: no rash, warm and dry Neurologic: no focal deficit, no asterixis, alert and oriented x3 Musculoskeletal: other (trace pitting edema in BLE) Psychiatric: cooperative - Lab 03/24/17 04:36 03/24/17 04:36 Most recent lab results Calcium 7.6 mg/dL (8.4-10.2) L 03/24/17 04:36 Phosphorus 3.00 mg/dL (2.5-4.5) D 03/24/17 04:36 Urine Creatinine 28.0 mg/dL (0.1-20.0) H 03/20/17 Unknown Urine Sodium 112 mEq/L 03/20/17 Unknown Urine Total Protein 7 mg/dL (5-11.8) 03/20/17 Unknown
[2017-03-24] MEDS: PROTONIX PO SCH (11:03)
[2017-03-24] MEDS: ASPIRIN PO SCH (11:03)
[2017-03-24] MEDS: LOPRESSOR PO SCH ×2 (11:04→22:07)
[2017-03-24] MEDS: HEPARIN SUB-Q SCH ×2 (11:05→22:06)
[2017-03-24] MEDS: SODIUM BICARBONATE PO SCH ×3 (11:10→22:06)
[2017-03-24] MEDS: TRENTAL PO SCH ×3 (11:10→22:05)
--- NOTE | 2017-03-24 18:09 | Progress Note ---
Assessment and Plan Assessment and plan: --Non-ST elevation ID; continue aspirin and beta blockers BARBER inhibitor nitrates and statins, left heart cath canceled , -- nonpalpable brachial radial and bilateral femur , follow CT angiogram abdominal aorta per cardiology --Acute on chronic renal failure stage IV; on hemodialysis per nephrology, --Type 2 diabetes mellitus; blood sugars moderate control Closely monitor blood sugars, Accu-Cheks sliding scale coverage ADA diet and low dose 7030 insulin --Acute on chronic systolic congestive heart failure Ejection fraction 40-45%, continue anti-failure medications --Dyslipidemia; continue current lipid-lowering medications --Hypertension; moderate control, continue current antihypertensives and when necessary medications --Morbid obesity; advised dietary modification and exercise as tolerated and weight reduction when medically stable --Moderate protein calorie malnutrition; supportive care, nutrition supplements --DVT prophylaxis with heparin --Discharge planning per Case management, outpatient HD chair scheduling when patient is medically stable Treatment plan discussed with the patient, her son at the bedside and her nurse Consults and recommendations noted History Interval history: Patient seen and examined No new events reported by the nursing staff CT angiogram of aorta revealed Alert and awake responding to simple questions Hospitalist Physical - Constitutional Vitals: Temp Pulse Resp BP Pulse Ox 99.2 F 80 20 110/60 94 03/24/17 12:59 03/24/17 15:20 03/24/17 12:59 03/24/17 15:20 03/24/17 10:00 General appearance: Present: no acute distress, well-nourished, obese - EENT Eyes: Present: PERRL, EOM intact - Neck Neck: Present: supple, normal ROM - Respiratory Respiratory effort: normal Respiratory: bilateral: diminished, rales, negative: rhonchi, wheezing - Cardiovascular Rhythm: regular Heart Sounds: Present: S1 & S2 - Extremities Extremities: no ischemia, pulses intact Peripheral Pulses: within normal limits - Abdominal General gastrointestinal: soft, non-tender, non-distended, normal bowel sounds - Integumentary Integumentary: Present: clear, warm - Psychiatric Psychiatric: appropriate mood/affect, cooperative - Neurologic Neurologic: CNII-XII intact, moves all extremities Results - Labs CBC & Chem 7: 03/24/17 04:36 03/24/17 04:36 Labs: Laboratory Last Values WBC 9.0 K/mm3 (4.5-11.0) 03/24/17 04:36 RBC 3.47 M/mm3 (3.65-5.03) L 03/24/17 04:36 Hgb 10.0 gm/dl (10.1-14.3) L 03/24/17 04:36 Hct 30.4 % (30.3-42.9) 03/24/17 04:36 MCV 88 fl (79-97) 03/24/17 04:36 MCH 29 pg (28-32) 03/24/17 04:36 MCHC 33 % (30-34) 03/24/17 04:36 RDW 13.9 % (13.2-15.2) 03/24/17 04:36 Plt Count 136 K/mm3 (140-440) L 03/24/17 04:36 Lymph % (Auto) 14.5 % (13.4-35.0) 03/24/17 04:36 [place] % (Auto) 7.1 % (0.0-7.3) 03/24/17 04:36 Eos % (Auto) 2.9 % (0.0-4.3) 03/24/17 04:36 Baso % (Auto) 0.5 % (0.0-1.8) 03/24/17 04:36 Lymph # 1.3 K/mm3 (1.2-5.4) 03/24/17 04:36 [place] # 0.6 K/mm3 (0.0-0.8) 03/24/17 04:36 Eos # 0.3 K/mm3 (0.0-0.4) 03/24/17 04:36 Baso # 0.0 K/mm3 (0.0-0.1) 03/24/17 04:36 Seg Neutrophils % 75.0 % (40.0-70.0) H 03/24/17 04:36 Seg Neutrophils # 6.7 K/mm3 (1.8-7.7) 03/24/17 04:36 PT 13.8 Sec. (12.2-14.9) 03/19/17 04:23 INR 1.01 (0.87-1.13) 03/19/17 04:23 APTT 36.0 Sec. (24.2-36.6) 03/19/17 04:23 Heparin Anti-Xa Level 0.68 U.I./ml (0.3-0.7) 03/19/17 11:55 Sodium 139 mmol/L (137-145) 03/24/17 04:36 Potassium 3.5 mmol/L (3.6-5.0) L 03/24/17 04:36 Chloride 99.2 mmol/L (98-107) 03/24/17 04:36 Carbon Dioxide 29 mmol/L (22-30) 03/24/17 04:36 Anion Gap 14 mmol/L 03/24/17 04:36 BUN 15 mg/dL (7-17) 03/24/17 04:36 Creatinine 3.1 mg/dL (0.7-1.2) H 03/24/17 04:36 Estimated GFR 15 ml/min 03/24/17 04:36 BUN/Creatinine Ratio 5 % 03/24/17 04:36 Glucose 240 mg/dL (65-100) H 03/24/17 04:36 POC Glucose 195 (70-105) H 03/24/17 13:03 Calcium 7.6 mg/dL (8.4-10.2) L 03/24/17 04:36 Phosphorus 3.00 mg/dL (2.5-4.5) D 03/24/17 04:36 Total Bilirubin 0.20 mg/dL (0.1-1.2) 03/20/17 06:13 AST 18 units/L (5-40) 03/20/17 06:13 ALT 15 units/L (7-56) 03/20/17 06:13 Alkaline Phosphatase 86 units/L (35-129) 03/20/17 06:13 Total Creatine Kinase 180 units/L (30-135) H 03/19/17 04:23 CK-MB (CK-2) 10.5 ng/mL (0.0-4.0) H 03/19/17 04:23 CK-MB (CK-2) Rel Index 5.8 (0-4) H 03/19/17 04:23 Troponin T 0.141 ng/mL (0.00-0.029) H* 03/19/17 04:23 NT-Pro-B Natriuret Pep 03414 pg/mL (0-900) H 03/18/17 19:43 Serum Total Protein 5.1 g/dL (6.1-8.1) L 03/19/17 14:46 Total Protein 4.6 g/dL (6.3-8.2) L 03/20/17 06:13 Albumin 2.3 g/dL (3.9-5) L 03/20/17 06:13 Albumin/Globulin Ratio 1.0 % 03/20/17 06:13 Engkh-2-Bjwlpgctu 0.4 g/dL (0.2-0.3) H 03/19/17 14:46 Eixpf-6-Rfvutwqkp 1.0 g/dL (0.5-0.9) H 03/19/17 14:46 Beta Globulins 0.4 g/dL (0.2-0.5) 03/19/17 14:46 Gamma Globulins 0.7 g/dL (0.8-1.7) L 03/19/17 14:46 Abnorm Protein Band 1 see below 03/19/17 14:46 PEP Interpretation see below H 03/19/17 14:46 Triglycerides 195 mg/dL (2-149) H 03/18/17 17:05 Cholesterol 189 mg/dL (50-199) 03/18/17 17:05 LDL Cholesterol Direct 62 mg/dL (50-130) 03/18/17 17:05 HDL Cholesterol 88 mg/dL (40-59) H 03/18/17 17:05 Cholesterol/HDL Ratio 2.14 % 03/18/17 17:05 Urine Eosinophils 1% (None Seen) 03/20/17 Unknown Urine Creatinine 28.0 mg/dL (0.1-20.0) H 03/20/17 Unknown Protein/Creatinin Ratio 0.25 03/20/17 Unknown Urine Sodium 112 mEq/L 03/20/17 Unknown Urine Total Protein 7 mg/dL (5-11.8) 03/20/17 Unknown LISS Screen Negative (Negative) 03/19/17 14:46 Double Strand DNA Ab <1 IU/mL (<=4) 03/19/17 14:46 Glomerular Base Mem IgG <1.0 AI (<1.0) 03/19/17 14:46 Complement C3 123 mg/dL (90-180) 03/19/17 14:46 Complement C4 31 mg/dL (16-47) 03/19/17 14:46 Tot Complement (CH50) >60 U/mL (31-60) H 03/19/17 14:46 Hepatitis A IgM Ab Non-reactive (NonReactive) 03/19/17 20:35 Hep Bs Antigen Non-reactive (Negative) 03/19/17 20:35 Hep B Core IgM Ab Non-reactive (NonReactive) 03/19/17 20:35 Hepatitis C Antibody Non-reactive (NonReactive) 03/19/17 20:35 HIV 1&2 Antibody Rapid Non react (Non React) 03/19/17 14:46 HIV P24 Antigen Non react (Non React) 03/19/17 14:46
[2017-03-24] MEDS: PRAVACHOL PO SCH (22:05)
[2017-03-25] MEDS: APRESOLINE PO SCH ×3 (06:18→22:18)
[2017-03-25] MEDS: NITRO-BID 2% TP SCH ×4 (06:18→17:35)
[2017-03-25 07:09] LABS: Basophils % (Auto) 0.7 % (0.0-1.8); Eosinophils % (Auto) 3.5 % (0.0-4.3); Hemoglobin 9.8 gm/dl (10.1-14.3); Mean Corpuscular HGB Conc 33 % (30-34); Mean Corpuscular Hemoglobin 29 pg (28-32); Mean Corpuscular Volume 88 fl (79-97); Red Cell Distribution Width 14.2 % (13.2-15.2); White Blood Count 10.4 K/mm3 (4.5-11.0)
[2017-03-25 07:11] LABS: Platelet Count 125 K/mm3 (140-440)
[2017-03-25 07:22] LABS: Chloride 99.2 mmol/L (98-107); Potassium 3.6 mmol/L (3.6-5.0)
--- NOTE | 2017-03-25 09:10 | Progress Note ---
Assessment and Plan Volume overload Chronic renal failure initiated on dialysis Pulmonary edema Bilateral Pleural effusions Chest pain Cardiac cath procedure aborted due to absence of palpable arterial pulses, bilateral femoral, R radial and R brachial. fixed anteroapical defect, no reversible ischemia on MPI 07/2016 echocardiogram reports a preserved left ventricle systolic function done 2016 Hx of Anemia Diabetes Hypertension Hyperlipidemia Elevated troponin, chronic Recommendations: LE arterial doppler suggesting patent bilateral SFAs. Final reading is still pending. Will defer to Dr Hogan tomorrow decision of whether to re-attempt a groin access coronary angiography In the meantime, recommend physical therapy Subjective Date of service: 03/25/17 Principal diagnosis: severe renal failure Interval history: No events overnight Patient is feeling very weak Objective Vital Signs Temp Pulse Pulse Resp Resp BP Pulse Ox 03/25/17 06:18 69 155/50 03/25/17 04:55 98.2 F 69 20 155/50 99 03/25/17 01:07 EDT 98.7 F 69 21 139/52 99 03/24/17 22:15 96 03/24/17 22:07 75 149/51 03/24/17 22:00 77 80 18 03/24/17 21:04 98.2 F 75 21 149/51 99 03/24/17 20:37 18 03/24/17 17:36 99.0 F 77 20 151/58 96 03/24/17 15:20 80 110/60 03/24/17 12:59 99.2 F 20 110/36 03/24/17 11:04 80 130/58 - Physical Examination General: No Apparent Distress Neck: Positive: neck supple, trachea midline Cardiac: Positive: Reg Rate and Rhythm Lungs: Positive: Normal Exam Extremities: Absent: edema - Labs and Meds CBC 03/25/17 Range/Units 06:34 WBC 10.4 (4.5-11.0) K/mm3 RBC 3.40 L (3.65-5.03) M/mm3 Hgb 9.8 L (10.1-14.3) gm/dl Hct 30.0 L (30.3-42.9) % Plt Count 125 L (140-440) K/mm3 Lymph # 1.9 (1.2-5.4) K/mm3 [place] # 0.8 (0.0-0.8) K/mm3 Eos # 0.4 (0.0-0.4) K/mm3 Baso # 0.1 (0.0-0.1) K/mm3 Comprehensive Metabolic Panel 03/25/17 Range/Units 06:34 Sodium 139 (137-145) mmol/L Potassium 3.6 (3.6-5.0) mmol/L Chloride 99.2 (98-107) mmol/L Carbon Dioxide 26 (22-30) mmol/L BUN 24 H (7-17) mg/dL Creatinine 4.8 H D (0.7-1.2) mg/dL Glucose 140 H (65-100) mg/dL Calcium 8.0 L (8.4-10.2) mg/dL
--- NOTE | 2017-03-25 09:18 | Progress Note ---
Assessment and Plan Assessment and plan: --Acute on chronic renal failure stage IV; on hemodialysis per nephrology, Case management to set up outpatient hemodialysis chair, multiple social issues --Non-ST elevation UT; continue aspirin and beta blockers BARBER inhibitor nitrates and statins, left heart cath canceled , management per cardiology -- nonpalpable brachial radial and bilateral femoral , CT angiogram reviewed --Type 2 diabetes mellitus; blood sugars moderate control Closely monitor blood sugars, Accu-Cheks sliding scale coverage ADA diet and low dose 7030 insulin --Acute on chronic systolic congestive heart failure Ejection fraction 40-45%, continue anti-failure medications --Dyslipidemia; continue current lipid-lowering medications --Hypertension; moderate control, continue current antihypertensives and when necessary medications --Morbid obesity; advised dietary modification and exercise as tolerated and weight reduction when medically stable --Moderate protein calorie malnutrition; supportive care, nutrition supplements --DVT prophylaxis with heparin --Discharge planning per Case management, outpatient HD chair scheduling when patient is medically stable Treatment plan discussed with the patient, her son at the bedside and her nurse Consults and recommendations noted History Interval history: Patient feels better no new complaints Vital signs stable Denies chest pain shortness of breath Son is at the bedside Hospitalist Physical - Constitutional Vitals: Temp Pulse Resp BP Pulse Ox 98.2 F 69 20 155/50 99 03/25/17 04:55 03/25/17 06:18 03/25/17 04:55 03/25/17 06:18 03/25/17 04:55 General appearance: Present: no acute distress, well-nourished, obese - EENT Eyes: Present: PERRL, EOM intact - Neck Neck: Present: supple, normal ROM - Respiratory Respiratory effort: normal Respiratory: bilateral: diminished, negative: rales, rhonchi, wheezing - Cardiovascular Rhythm: regular Heart Sounds: Present: S1 & S2 - Extremities Extremities: no ischemia, No edema Peripheral Pulses: within normal limits - Abdominal General gastrointestinal: soft, non-tender, non-distended, normal bowel sounds - Integumentary Integumentary: Present: clear, warm - Psychiatric Psychiatric: appropriate mood/affect, cooperative - Neurologic Neurologic: CNII-XII intact, moves all extremities Results - Labs CBC & Chem 7: 03/25/17 06:34 03/25/17 06:34 Labs: Laboratory Last Values WBC 10.4 K/mm3 (4.5-11.0) 03/25/17 06:34 RBC 3.40 M/mm3 (3.65-5.03) L 03/25/17 06:34 Hgb 9.8 gm/dl (10.1-14.3) L 03/25/17 06:34 Hct 30.0 % (30.3-42.9) L 03/25/17 06:34 MCV 88 fl (79-97) 03/25/17 06:34 MCH 29 pg (28-32) 03/25/17 06:34 MCHC 33 % (30-34) 03/25/17 06:34 RDW 14.2 % (13.2-15.2) 03/25/17 06:34 Plt Count 125 K/mm3 (140-440) L 03/25/17 06:34 Lymph % (Auto) 18.6 % (13.4-35.0) 03/25/17 06:34 [place] % (Auto) 7.7 % (0.0-7.3) H 03/25/17 06:34 Eos % (Auto) 3.5 % (0.0-4.3) 03/25/17 06:34 Baso % (Auto) 0.7 % (0.0-1.8) 03/25/17 06:34 Lymph # 1.9 K/mm3 (1.2-5.4) 03/25/17 06:34 [place] # 0.8 K/mm3 (0.0-0.8) 03/25/17 06:34 Eos # 0.4 K/mm3 (0.0-0.4) 03/25/17 06:34 Baso # 0.1 K/mm3 (0.0-0.1) 03/25/17 06:34 Seg Neutrophils % 69.5 % (40.0-70.0) 03/25/17 06:34 Seg Neutrophils # 7.2 K/mm3 (1.8-7.7) 03/25/17 06:34 PT 13.8 Sec. (12.2-14.9) 03/19/17 04:23 INR 1.01 (0.87-1.13) 03/19/17 04:23 APTT 36.0 Sec. (24.2-36.6) 03/19/17 04:23 Heparin Anti-Xa Level 0.68 U.I./ml (0.3-0.7) 03/19/17 11:55 Sodium 139 mmol/L (137-145) 03/25/17 06:34 Potassium 3.6 mmol/L (3.6-5.0) 03/25/17 06:34 Chloride 99.2 mmol/L (98-107) 03/25/17 06:34 Carbon Dioxide 26 mmol/L (22-30) 03/25/17 06:34 Anion Gap 17 mmol/L 03/25/17 06:34 BUN 24 mg/dL (7-17) H 03/25/17 06:34 Creatinine 4.8 mg/dL (0.7-1.2) H D 03/25/17 06:34 Estimated GFR 9 ml/min 03/25/17 06:34 BUN/Creatinine Ratio 5 % 03/25/17 06:34 Glucose 140 mg/dL (65-100) H 03/25/17 06:34 POC Glucose 118 (70-105) H 03/24/17 21:17 Calcium 8.0 mg/dL (8.4-10.2) L 03/25/17 06:34 Phosphorus 3.70 mg/dL (2.5-4.5) D 03/25/17 06:34 Total Bilirubin 0.20 mg/dL (0.1-1.2) 03/20/17 06:13 AST 18 units/L (5-40) 03/20/17 06:13 ALT 15 units/L (7-56) 03/20/17 06:13 Alkaline Phosphatase 86 units/L (35-129) 03/20/17 06:13 Total Creatine Kinase 180 units/L (30-135) H 03/19/17 04:23 CK-MB (CK-2) 10.5 ng/mL (0.0-4.0) H 03/19/17 04:23 CK-MB (CK-2) Rel Index 5.8 (0-4) H 03/19/17 04:23 Troponin T 0.141 ng/mL (0.00-0.029) H* 03/19/17 04:23 NT-Pro-B Natriuret Pep 80449 pg/mL (0-900) H 03/18/17 19:43 Serum Total Protein 5.1 g/dL (6.1-8.1) L 03/19/17 14:46 Total Protein 4.6 g/dL (6.3-8.2) L 03/20/17 06:13 Albumin 2.3 g/dL (3.9-5) L 03/20/17 06:13 Albumin/Globulin Ratio 1.0 % 03/20/17 06:13 Svjmt-6-Krgtdvstf 0.4 g/dL (0.2-0.3) H 03/19/17 14:46 Jtsdh-9-Swxdwomji 1.0 g/dL (0.5-0.9) H 03/19/17 14:46 Beta Globulins 0.4 g/dL (0.2-0.5) 03/19/17 14:46 Gamma Globulins 0.7 g/dL (0.8-1.7) L 03/19/17 14:46 Abnorm Protein Band 1 see below 03/19/17 14:46 PEP Interpretation see below H 03/19/17 14:46 Triglycerides 195 mg/dL (2-149) H 03/18/17 17:05 Cholesterol 189 mg/dL (50-199) 03/18/17 17:05 LDL Cholesterol Direct 62 mg/dL (50-130) 03/18/17 17:05 HDL Cholesterol 88 mg/dL (40-59) H 03/18/17 17:05 Cholesterol/HDL Ratio 2.14 % 03/18/17 17:05 Urine Eosinophils 1% (None Seen) 03/20/17 Unknown Urine Creatinine 28.0 mg/dL (0.1-20.0) H 03/20/17 Unknown Protein/Creatinin Ratio 0.25 03/20/17 Unknown Urine Sodium 112 mEq/L 03/20/17 Unknown Urine Total Protein 7 mg/dL (5-11.8) 03/20/17 Unknown LISS Screen Negative (Negative) 03/19/17 14:46 Double Strand DNA Ab <1 IU/mL (<=4) 03/19/17 14:46 Glomerular Base Mem IgG <1.0 AI (<1.0) 03/19/17 14:46 Complement C3 123 mg/dL (90-180) 03/19/17 14:46 Complement C4 31 mg/dL (16-47) 03/19/17 14:46 Tot Complement (CH50) >60 U/mL (31-60) H 03/19/17 14:46 Hepatitis A IgM Ab Non-reactive (NonReactive) 03/19/17 20:35 Hep Bs Antigen Non-reactive (Negative) 03/19/17 20:35 Hep B Core IgM Ab Non-reactive (NonReactive) 03/19/17 20:35 Hepatitis C Antibody Non-reactive (NonReactive) 03/19/17 20:35 HIV 1&2 Antibody Rapid Non react (Non React) 03/19/17 14:46 HIV P24 Antigen Non react (Non React) 03/19/17 14:46
[2017-03-25] MEDS: ASPIRIN PO SCH (09:44)
[2017-03-25] MEDS: GLUCOTROL PO SCH ×2 (09:44→17:34)
[2017-03-25] MEDS: LOPRESSOR PO SCH ×2 (09:44→22:19)
[2017-03-25] MEDS: PROTONIX PO SCH (09:46)
[2017-03-25] MEDS: TRENTAL PO SCH ×3 (09:46→22:16)
[2017-03-25] MEDS: SODIUM BICARBONATE PO SCH ×3 (09:46→22:16)
[2017-03-25] MEDS: HEPARIN SUB-Q SCH ×2 (09:56→22:17)
--- NOTE | 2017-03-25 10:20 | Progress Note ---
Assessment and Plan (1) Volume overload Current Visit: Yes Status: Acute Qualifiers: Hypervolemia type: H Plan to address problem: UF with HD (2) Severe renal failure on HD Current Visit: No Status: Acute Plan to address problem: no indication for HD today Will assess dialysis needs daily, no signs of renal recovery, oliguric with rising BUN and Cr off HD GN-work-up is negative Renally dose medications Obtain daily weights Monitor I/O's (3) Acute hyperkalemia Current Visit: Yes Status: Acute Plan to address problem: Resolved (4) Acute congestive heart failure Current Visit: No Status: Acute Qualifiers: Congestive heart failure type: systolic Qualified Code(s): I50.21 - Acute systolic (congestive) heart failure Plan to address problem: per cardiology, possible LHC tomorrow (5) Diabetes mellitus Current Visit: Yes Status: Acute Qualifiers: Diabetes mellitus type: D Diabetes mellitus complication status: D Diabetes mellitus complication detail: D Diabetic retinopathy severity: D Proliferative retinopathy type: P Diabetes mellitus macular edema: D Diabetes mellitus prison insulin use: D Laterality: L Chronic kidney disease stage: C Plan to address problem: As per primary team (6) Hypertension Current Visit: Yes Status: Acute Qualifiers: Hypertension type: H Plan to address problem: Continue on anti-hypertensive agents. Subjective Date of service: 03/25/17 Principal diagnosis: severe renal failure Interval history: denies overnight events Objective - Vital Signs Vital signs: Vital Signs - 12hr 03/25/17 03/25/17 03/25/17 01:07 EDT 04:55 06:18 Temperature 98.7 F 98.2 F Pulse Rate 69 69 69 Respiratory 21 20 Rate Blood Pressure 139/52 155/50 155/50 O2 Sat by Pulse 99 99 Oximetry 03/25/17 03/25/17 09:44 10:04 Temperature Pulse Rate 74 74 Respiratory Rate Blood Pressure O2 Sat by Pulse Oximetry - General Appearance General appearance: well-developed, well-nourished, obese EENT: ATNC, PERRL, mucous membranes moist Neck: no JVD, no carotid bruit Respiratory: Present: Clear to Ascultation. Absent: Ronchi, Wheezes Cardiology: regular, S1S2 Gastrointestinal: normoactive bowel sounds Integumentary: no rash, warm and dry Neurologic: no focal deficit, no asterixis, alert and oriented x3 Musculoskeletal: deferred, other (no edema in BLE) Psychiatric: mood/affect appropriate, cooperative - Lab 03/25/17 06:34 03/25/17 06:34 Most recent lab results Calcium 8.0 mg/dL (8.4-10.2) L 03/25/17 06:34 Phosphorus 3.70 mg/dL (2.5-4.5) D 03/25/17 06:34 Urine Creatinine 28.0 mg/dL (0.1-20.0) H 03/20/17 Unknown Urine Sodium 112 mEq/L 03/20/17 Unknown Urine Total Protein 7 mg/dL (5-11.8) 03/20/17 Unknown
[2017-03-25] MEDS: PRAVACHOL PO SCH (22:16)
[2017-03-26] MEDS: NITRO-BID 2% TP SCH ×4 (06:31→17:41)
[2017-03-26] MEDS: APRESOLINE PO SCH ×3 (06:31→23:25)
--- NOTE | 2017-03-26 07:25 | Vascular Lab Report ---
ABDOMINAL AORTA DUPLEX EXAM: REASON FOR EXAM: Concern for abdominal aortic aneurysm with risk factors of PAD. COMMENTS ON THE AORTA: The aorta is patent. No aneurysmal dilatation is noted. Mild atherosclerotic change is identified. The proximal aorta measures up to 1.6 cm. The mid aorta measures up to 1.9 cm. The distal aorta measures up to 1.4 cm. COMMENTS ON THE COMMON ILIAC ARTERIES: The common iliac arteries are patent. No aneurysmal dilatation is noted. Mild atherosclerotic change is identified. IMPRESSION: A.
--- NOTE | 2017-03-26 07:26 | Vascular Lab Report ---
LOWER EXTREMITY ARTERIAL DUPLEX: REASON FOR EXAM: Peripheral arterial disease. COMMENTS ON THE RIGHT: Biphasic waveforms are seen proximally. Biphasic waveforms are seen distally. No significant velocity gradients are identified. No focal significant plaque is identified. Findings are consistent with normal perfusion. Findings are consistent with the ability to heal distal wounds. COMMENTS ON THE LEFT: Biphasic waveforms are seen proximally. Biphasic waveforms are seen distally. No significant velocity gradients are identified. No focal significant plaque is identified. Findings are consistent with normal perfusion. Findings are consistent with the ability to heal distal wounds. IMPRESSION: RIGHT: Essentially normal arterial flow. LEFT:Essentially normal arterial flow.
[2017-03-26 07:54] LABS: Calcium 8.1 mg/dL (8.4-10.2); Chloride 99.1 mmol/L (98-107); Potassium 3.6 mmol/L (3.6-5.0)
[2017-03-26 08:11] LABS: Basophils % (Auto) 0.6 % (0.0-1.8); Eosinophils % (Auto) 3.1 % (0.0-4.3); Hematocrit 30.6 % (30.3-42.9); Hemoglobin 10.2 gm/dl (10.1-14.3); Mean Corpuscular HGB Conc 33 % (30-34); Mean Corpuscular Hemoglobin 29 pg (28-32); Mean Corpuscular Volume 87 fl (79-97); Platelet Count 154 K/mm3 (140-440); Red Blood Count 3.51 M/mm3 (3.65-5.03); Red Cell Distribution Width 13.6 % (13.2-15.2); White Blood Count 10.3 K/mm3 (4.5-11.0)
--- NOTE | 2017-03-26 10:25 | Progress Note ---
Assessment and Plan Volume overload Chronic renal failure initiated on dialysis Pulmonary edema Bilateral Pleural effusions Chest pain Cardiac cath procedure aborted due to absence of palpable arterial pulses, bilateral femoral, R radial and R brachial. fixed anteroapical defect, no reversible ischemia on MPI 07/2016 echocardiogram reports a mild decreased systolic function, EF 40-45% Hx of Anemia Diabetes Hypertension Hyperlipidemia Elevated troponin, chronic Recommendations: Medical therapy for underlying coronary artery disease to include aspirin, long- acting nitrates, beta blockers and statin therapy as tolerated. Dialysis for fluid management. Subjective Date of service: 03/26/17 Principal diagnosis: severe renal failure Interval history: Patient is resting in bed comfortably. She has no complaints. Objective Vital Signs Temp Pulse Pulse Resp Resp BP Pulse Ox 03/26/17 07:33 97.4 F L 73 16 152/55 100 03/26/17 06:31 73 153/78 03/26/17 05:19 98.5 F 73 20 153/78 100 03/26/17 00:15 98.7 F 73 19 165/56 100 03/25/17 22:19 72 114/45 03/25/17 22:18 72 114/45 03/25/17 22:11 18 114/45 03/25/17 22:03 73 03/25/17 22:00 75 18 03/25/17 21:24 18 03/25/17 19:35 98.4 F 72 18 107/32 99 03/25/17 17:35 76 03/25/17 17:06 98.3 F 72 20 164/55 100 03/25/17 14:42 72 03/25/17 14:41 72 03/25/17 12:08 98.4 F 69 20 143/63 99 - Physical Examination General: No Apparent Distress Cardiac: Positive: Reg Rate and Rhythm - Labs and Meds CBC 03/26/17 Range/Units 06:37 WBC 10.3 (4.5-11.0) K/mm3 RBC 3.51 L (3.65-5.03) M/mm3 Hgb 10.2 (10.1-14.3) gm/dl Hct 30.6 (30.3-42.9) % Plt Count 154 (140-440) K/mm3 Lymph # 1.9 (1.2-5.4) K/mm3 [place] # 0.7 (0.0-0.8) K/mm3 Eos # 0.3 (0.0-0.4) K/mm3 Baso # 0.1 (0.0-0.1) K/mm3 Comprehensive Metabolic Panel 03/26/17 Range/Units 06:37 Sodium 140 (137-145) mmol/L Potassium 3.6 (3.6-5.0) mmol/L Chloride 99.1 (98-107) mmol/L Carbon Dioxide 30 (22-30) mmol/L BUN 30 H (7-17) mg/dL Creatinine 5.7 H (0.7-1.2) mg/dL Glucose 48 L (65-100) mg/dL Calcium 8.1 L (8.4-10.2) mg/dL
--- NOTE | 2017-03-26 12:22 | Progress Note ---
Assessment and Plan (1) Volume overload Current Visit: Yes Status: Acute Qualifiers: Hypervolemia type: H Plan to address problem: UF with HD (2) ESRD on HD Current Visit: No Status: Acute Plan to address problem: HD today for clearance and volume removal Dr Weston consulted for permcath placement case management for outpt dialysis placement GN-work-up is negative Renally dose medications Obtain daily weights Monitor I/O's (3) Acute hyperkalemia Current Visit: Yes Status: Acute Plan to address problem: Resolved (4) Acute congestive heart failure Current Visit: No Status: Acute Qualifiers: Congestive heart failure type: systolic Qualified Code(s): I50.21 - Acute systolic (congestive) heart failure Plan to address problem: per cardiology (5) Diabetes mellitus Current Visit: Yes Status: Acute Qualifiers: Diabetes mellitus type: D Diabetes mellitus complication status: D Diabetes mellitus complication detail: D Diabetic retinopathy severity: D Proliferative retinopathy type: P Diabetes mellitus macular edema: D 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 Subjective Date of service: 03/26/17 Principal diagnosis: severe renal failure Interval history: denies overnight events Objective - Vital Signs Vital signs: Vital Signs - 12hr 03/26/17 03/26/17 03/26/17 05:19 06:31 07:33 Temperature 98.5 F 97.4 F L Pulse Rate 73 73 73 Respiratory 20 16 Rate Blood Pressure 153/78 153/78 152/55 O2 Sat by Pulse 100 100 Oximetry 03/26/17 11:20 Temperature 97.9 F Pulse Rate 77 Respiratory 20 Rate Blood Pressure 159/51 O2 Sat by Pulse 99 Oximetry - General Appearance General appearance: well-developed, well-nourished EENT: ATNC, PERRL, mucous membranes moist Neck: no JVD, no carotid bruit Respiratory: Present: Clear to Ascultation Cardiology: regular, S1S2 Gastrointestinal: normoactive bowel sounds, no tenderness, no distended, no obese Integumentary: no rash, warm and dry Neurologic: no focal deficit, no asterixis, alert and oriented x3 Musculoskeletal: other (no edema in BLE) Psychiatric: mood/affect appropriate, cooperative - Lab 03/26/17 06:37 03/26/17 06:37 Most recent lab results Calcium 8.1 mg/dL (8.4-10.2) L 03/26/17 06:37 Phosphorus 4.10 mg/dL (2.5-4.5) 03/26/17 06:37 Urine Creatinine 28.0 mg/dL (0.1-20.0) H 03/20/17 Unknown Urine Sodium 112 mEq/L 03/20/17 Unknown Urine Total Protein 7 mg/dL (5-11.8) 03/20/17 Unknown
[2017-03-26] MEDS: ASPIRIN PO SCH (13:06)
[2017-03-26] MEDS: LOPRESSOR PO SCH ×2 (13:06→23:24)
[2017-03-26] MEDS: PROTONIX PO SCH (13:07)
[2017-03-26] MEDS: HEPARIN SUB-Q SCH ×2 (13:08→23:23)
[2017-03-26] MEDS: TRENTAL PO SCH ×3 (13:19→23:23)
[2017-03-26] MEDS: SODIUM BICARBONATE PO SCH ×3 (13:19→23:30)
[2017-03-26] MEDS: GLUCOTROL PO SCH ×2 (13:20→17:45)
--- NOTE | 2017-03-26 16:19 | Event Note ---
Date: 03/26/17 Consulted for Perma-cath placement. Called to speak to pt's nurse, who is presently unavailable (as she is involved in a [employer]). Another vascular surgery service has previously been consulted. The pt was evaluated, and a vas cath placed. Recommend re-consulting Dr Whatley for Perma-cath placement.
[2017-03-26] MEDS ORDERED: NACL 0.9 (PRIMING MACHINE ONLY DIALYSIS) MC ONE (19:37)
[2017-03-26] MEDS: HEPARIN IV PRN (20:24)
--- NOTE | 2017-03-26 21:35 | Progress Note ---
Assessment and Plan Assessment and plan: --Acute on chronic renal failure stage IV; on hemodialysis per nephrology, Case management to set up outpatient hemodialysis chair, multiple social issues --Non-ST elevation [place]; continue aspirin and beta blockers BARBER inhibitor nitrates and statins, left heart cath canceled , due to absence of palpable arterial pulses, bilateral femoral, R radial and R brachial. no reversible ischemia , fixed defect on MPI 07/2016, ejection fraction 40-45% on echo -- nonpalpable brachial radial and bilateral femoral , CT angiogram reviewed --Type 2 diabetes mellitus; blood sugars moderate control Closely monitor blood sugars, Accu-Cheks sliding scale coverage ADA diet and low dose 7030 insulin --Acute on chronic systolic congestive heart failure Ejection fraction 40-45%, continue anti-failure medications --Dyslipidemia; continue current lipid-lowering medications --Hypertension; moderate control, continue current antihypertensives and when necessary medications --Morbid obesity; advised dietary modification and exercise as tolerated and weight reduction when medically stable --Moderate protein calorie malnutrition; supportive care, nutrition supplements --DVT prophylaxis with heparin --Discharge planning per Case management, outpatient HD chair scheduling when patient is medically stable Multiple social and legal issues Treatment plan discussed with the patient, her son at the bedside and her nurse Consults and recommendations noted History Interval history: Patient seen and examined medical records reviewed No new events reported by the nursing staff Patient' feels better, denies chest pain or shortness of breath Vital signs reviewed Hospitalist Physical - Constitutional Vitals: Temp Pulse Resp BP Pulse Ox 97.9 F 78 18 115/41 97 03/26/17 21:19 03/26/17 21:19 03/26/17 21:19 03/26/17 21:19 03/26/17 21:19 General appearance: Present: no acute distress, well-nourished, obese - EENT Eyes: Present: PERRL, EOM intact - Neck Neck: Present: supple, normal ROM - Respiratory Respiratory effort: normal Respiratory: bilateral: diminished, rales, negative: rhonchi, wheezing - Cardiovascular Rhythm: regular Heart Sounds: Present: S1 & S2 - Extremities Extremities: no ischemia, normal temperature Extremity abnormal: edema - Abdominal General gastrointestinal: soft, non-tender, non-distended, normal bowel sounds - Integumentary Integumentary: Present: clear, warm - Psychiatric Psychiatric: appropriate mood/affect, cooperative - Neurologic Neurologic: CNII-XII intact, moves all extremities Results - Labs CBC & Chem 7: 03/26/17 06:37 03/26/17 06:37 Labs: Laboratory Last Values WBC 10.3 K/mm3 (4.5-11.0) 03/26/17 06:37 RBC 3.51 M/mm3 (3.65-5.03) L 03/26/17 06:37 Hgb 10.2 gm/dl (10.1-14.3) 03/26/17 06:37 Hct 30.6 % (30.3-42.9) 03/26/17 06:37 MCV 87 fl (79-97) 03/26/17 06:37 MCH 29 pg (28-32) 03/26/17 06:37 MCHC 33 % (30-34) 03/26/17 06:37 RDW 13.6 % (13.2-15.2) 03/26/17 06:37 Plt Count 154 K/mm3 (140-440) 03/26/17 06:37 Lymph % (Auto) 18.5 % (13.4-35.0) 03/26/17 06:37 [place] % (Auto) 7.1 % (0.0-7.3) 03/26/17 06:37 Eos % (Auto) 3.1 % (0.0-4.3) 03/26/17 06:37 Baso % (Auto) 0.6 % (0.0-1.8) 03/26/17 06:37 Lymph # 1.9 K/mm3 (1.2-5.4) 03/26/17 06:37 [place] # 0.7 K/mm3 (0.0-0.8) 03/26/17 06:37 Eos # 0.3 K/mm3 (0.0-0.4) 03/26/17 06:37 Baso # 0.1 K/mm3 (0.0-0.1) 03/26/17 06:37 Seg Neutrophils % 70.7 % (40.0-70.0) H 03/26/17 06:37 Seg Neutrophils # 7.3 K/mm3 (1.8-7.7) 03/26/17 06:37 PT 13.8 Sec. (12.2-14.9) 10/30/17 04:23 INR 1.01 (0.87-1.13) 03/19/17 04:23 APTT 36.0 Sec. (24.2-36.6) 03/19/17 04:23 Heparin Anti-Xa Level 0.68 U.I./ml (0.3-0.7) 03/19/17 11:55 Sodium 140 mmol/L (137-145) 03/26/17 06:37 Potassium 3.6 mmol/L (3.6-5.0) 03/26/17 06:37 Chloride 99.1 mmol/L (98-107) 03/26/17 06:37 Carbon Dioxide 30 mmol/L (22-30) 03/26/17 06:37 Anion Gap 15 mmol/L 03/26/17 06:37 BUN 30 mg/dL (7-17) H 03/26/17 06:37 Creatinine 5.7 mg/dL (0.7-1.2) H 03/26/17 06:37 Estimated GFR 8 ml/min 03/26/17 06:37 BUN/Creatinine Ratio 5 % 03/26/17 06:37 Glucose 48 mg/dL (65-100) L 03/26/17 06:37 POC Glucose 192 (70-105) H 03/26/17 11:26 Calcium 8.1 mg/dL (8.4-10.2) L 03/26/17 06:37 Phosphorus 4.10 mg/dL (2.5-4.5) 03/26/17 06:37 Total Bilirubin 0.20 mg/dL (0.1-1.2) 03/20/17 06:13 AST 18 units/L (5-40) 03/20/17 06:13 ALT 15 units/L (7-56) 03/20/17 06:13 Alkaline Phosphatase 86 units/L (35-129) 03/20/17 06:13 Total Creatine Kinase 180 units/L (30-135) H 03/19/17 04:23 CK-MB (CK-2) 10.5 ng/mL (0.0-4.0) H 03/19/17 04:23 CK-MB (CK-2) Rel Index 5.8 (0-4) H 03/19/17 04:23 Troponin T 0.141 ng/mL (0.00-0.029) H* 03/19/17 04:23 NT-Pro-B Natriuret Pep 18992 pg/mL (0-900) H 03/18/17 19:43 Serum Total Protein 5.1 g/dL (6.1-8.1) L 03/19/17 14:46 Total Protein 4.6 g/dL (6.3-8.2) L 03/20/17 06:13 Albumin 2.3 g/dL (3.9-5) L 03/20/17 06:13 Albumin/Globulin Ratio 1.0 % 03/20/17 06:13 Shocz-1-Etrsrytux 0.4 g/dL (0.2-0.3) H 03/19/17 14:46 Retea-4-Vyzbenwuv 1.0 g/dL (0.5-0.9) H 03/19/17 14:46 Beta Globulins 0.4 g/dL (0.2-0.5) 03/19/17 14:46 Gamma Globulins 0.7 g/dL (0.8-1.7) L 03/19/17 14:46 Abnorm Protein Band 1 see below 03/19/17 14:46 PEP Interpretation see below H 03/19/17 14:46 Triglycerides 195 mg/dL (2-149) H 03/18/17 17:05 Cholesterol 189 mg/dL (50-199) 03/18/17 17:05 LDL Cholesterol Direct 62 mg/dL (50-130) 03/18/17 17:05 HDL Cholesterol 88 mg/dL (40-59) H 03/18/17 17:05 Cholesterol/HDL Ratio 2.14 % 03/18/17 17:05 Urine Eosinophils 1% (None Seen) 03/20/17 Unknown Urine Creatinine 28.0 mg/dL (0.1-20.0) H 03/20/17 Unknown Protein/Creatinin Ratio 0.25 03/20/17 Unknown Urine Sodium 112 mEq/L 03/20/17 Unknown Urine Total Protein 7 mg/dL (5-11.8) 03/20/17 Unknown LISS Screen Negative (Negative) 03/19/17 14:46 Double Strand DNA Ab <1 IU/mL (<=4) 03/19/17 14:46 Glomerular Base Mem IgG <1.0 AI (<1.0) 03/19/17 14:46 Complement C3 123 mg/dL (90-180) 03/19/17 14:46 Complement C4 31 mg/dL (16-47) 03/19/17 14:46 Tot Complement (CH50) >60 U/mL (31-60) H 03/19/17 14:46 Hepatitis A IgM Ab Non-reactive (NonReactive) 03/19/17 20:35 Hep Bs Antigen Non-reactive (Negative) 03/19/17 20:35 Hep B Core IgM Ab Non-reactive (NonReactive) 03/19/17 20:35 Hepatitis C Antibody Non-reactive (NonReactive) 03/19/17 20:35 HIV 1&2 Antibody Rapid Non react (Non React) 03/19/17 14:46 HIV P24 Antigen Non react (Non React) 03/19/17 14:46 Miscellaneous Test Flexitest 1 H 03/21/17 05:55
[2017-03-26] MEDS: PRAVACHOL PO SCH (23:23)
[2017-03-27] MEDS: APRESOLINE PO SCH ×3 (06:12→23:00)
[2017-03-27] MEDS: NITRO-BID 2% TP SCH ×5 (06:13→18:34)
[2017-03-27 06:20] LABS: Chloride 96.3 mmol/L (98-107); Potassium 3.3 mmol/L (3.6-5.0)
[2017-03-27 06:25] LABS: Basophils % (Auto) 0.7 % (0.0-1.8); Eosinophils % (Auto) 2.7 % (0.0-4.3); Hematocrit 30.5 % (30.3-42.9); Hemoglobin 10.1 gm/dl (10.1-14.3); Mean Corpuscular HGB Conc 33 % (30-34); Mean Corpuscular Hemoglobin 29 pg (28-32); Mean Corpuscular Volume 88 fl (79-97); Platelet Count 148 K/mm3 (140-440); Red Blood Count 3.48 M/mm3 (3.65-5.03); Red Cell Distribution Width 13.4 % (13.2-15.2)
[2017-03-27] MEDS ORDERED: ALUM-MAG HYDROX-SIMETH 200-200-20MG/5ML PO PRN (06:32)
[2017-03-27] MEDS ORDERED: ALUM-MAG HYDROX-SIMETH 200-200-20MG/5ML PO ONE (06:37)
--- NOTE | 2017-03-27 10:22 | Progress Note ---
Assessment and Plan Volume overload Chronic renal failure initiated on dialysis Pulmonary edema Bilateral Pleural effusions Chest pain Cardiac cath procedure aborted due to absence of palpable arterial pulses, bilateral femoral, R radial and R brachial. fixed anteroapical defect, no reversible ischemia on MPI 07/2016 echocardiogram reports a mild decreased systolic function, EF 40-45% Hx of Anemia Diabetes Hypertension Hyperlipidemia Elevated troponin, chronic Recommendations: Medical therapy for underlying coronary artery disease to include aspirin, long- acting nitrates, beta blockers and statin therapy as tolerated. Dialysis for fluid management. Subjective Date of service: 03/27/17 Principal diagnosis: severe renal failure Interval history: Patient is resting in bed comfortably. No events on telemetry overnight. Objective Vital Signs Temp Pulse Pulse Resp Resp BP Pulse Ox 03/27/17 06:12 74 146/59 03/27/17 03:55 98.3 F 74 18 146/59 87 03/26/17 23:38 97.9 F 74 18 117/26 94 03/26/17 22:00 75 18 18 03/26/17 21:29 77 03/26/17 21:19 97.9 F 78 18 115/41 97 03/26/17 19:30 98.2 F 66 18 110/42 03/26/17 19:20 72 126/56 03/26/17 19:00 70 126/54 03/26/17 18:45 72 124/50 03/26/17 18:30 72 104/44 03/26/17 18:15 70 114/54 03/26/17 18:00 72 120/54 03/26/17 17:45 70 120/53 03/26/17 17:41 74 03/26/17 17:30 70 132/54 03/26/17 17:15 70 130/50 03/26/17 17:00 72 134/52 03/26/17 16:45 70 140/54 03/26/17 16:30 72 150/58 03/26/17 16:20 98.5 F 74 18 154/59 03/26/17 15:40 98.3 F 78 18 163/43 99 03/26/17 13:23 74 03/26/17 13:19 74 03/26/17 13:06 76 03/26/17 11:20 97.9 F 77 20 159/51 99 - Physical Examination General: No Apparent Distress Cardiac: Positive: Reg Rate and Rhythm - Labs and Meds CBC 03/27/17 Range/Units 04:42 WBC 11.0 (4.5-11.0) K/mm3 RBC 3.48 L (3.65-5.03) M/mm3 Hgb 10.1 (10.1-14.3) gm/dl Hct 30.5 (30.3-42.9) % Plt Count 148 (140-440) K/mm3 Lymph # 1.7 (1.2-5.4) K/mm3 [place] # 0.9 H (0.0-0.8) K/mm3 Eos # 0.3 (0.0-0.4) K/mm3 Baso # 0.1 (0.0-0.1) K/mm3 Comprehensive Metabolic Panel 03/27/17 Range/Units 04:42 Sodium 136 L (137-145) mmol/L Potassium 3.3 L (3.6-5.0) mmol/L Chloride 96.3 L (98-107) mmol/L Carbon Dioxide 27 (22-30) mmol/L BUN 15 (7-17) mg/dL Creatinine 3.3 H (0.7-1.2) mg/dL Glucose 82 (65-100) mg/dL Calcium 8.0 L (8.4-10.2) mg/dL
[2017-03-27] MEDS: PROTONIX PO SCH (10:34)
[2017-03-27] MEDS: LOPRESSOR PO SCH ×2 (10:34→22:59)
[2017-03-27] MEDS: HEPARIN SUB-Q SCH ×2 (10:34→22:56)
[2017-03-27] MEDS: SODIUM BICARBONATE PO SCH ×3 (10:34→22:56)
[2017-03-27] MEDS: ASPIRIN PO SCH (10:34)
[2017-03-27] MEDS: GLUCOTROL PO SCH ×2 (10:34→18:33)
--- NOTE | 2017-03-27 11:54 | Progress Note ---
Assessment and Plan (1) Volume overload Current Visit: Yes Status: Acute Qualifiers: Hypervolemia type: H Plan to address problem: UF with HD (2) ESRD on HD Current Visit: No Status: Acute Plan to address problem: no indication for HD today Dr Weston consulted for permcath placement case management for outpt dialysis placement GN-work-up is negative Renally dose medications Obtain daily weights Monitor I/O's (3) Acute hyperkalemia Current Visit: Yes Status: Acute Plan to address problem: Resolved (4) Acute congestive heart failure Current Visit: No Status: Acute Qualifiers: Congestive heart failure type: systolic Qualified Code(s): I50.21 - Acute systolic (congestive) heart failure Plan to address problem: per cardiology (5) Diabetes mellitus Current Visit: Yes Status: Acute Qualifiers: Diabetes mellitus type: D Diabetes mellitus complication status: D Diabetes mellitus complication detail: D Diabetic retinopathy severity: D Proliferative retinopathy type: P Diabetes mellitus macular edema: D Diabetes mellitus [facility] insulin use: D Laterality: L Chronic kidney disease stage: C Plan to address problem: As per primary team (6) Hypertension Current Visit: Yes Status: Acute Qualifiers: Hypertension type: H Plan to address problem: Continue on anti-hypertensive agents. Subjective Date of service: 03/27/17 Principal diagnosis: severe renal failure Interval history: tolerated HD yesterday Objective - Vital Signs Vital signs: Vital Signs - 12hr 03/27/17 03/27/17 03/27/17 03:55 06:12 10:34 Temperature 98.3 F Pulse Rate 74 74 78 Respiratory 18 Rate Blood Pressure 146/59 146/59 173/61 O2 Sat by Pulse 87 Oximetry - General Appearance General appearance: well-nourished EENT: ATNC, PERRL, mucous membranes moist Neck: no JVD, no carotid bruit Respiratory: Present: Decreased Breath Sounds Gastrointestinal: normoactive bowel sounds Integumentary: no rash, warm and dry Neurologic: no focal deficit, no asterixis, alert and oriented x3 Musculoskeletal: other (no edema in BLE) Psychiatric: mood/affect appropriate, cooperative - Lab 03/27/17 04:42 03/27/17 04:42 Most recent lab results Calcium 8.0 mg/dL (8.4-10.2) L 03/27/17 04:42 Phosphorus 4.10 mg/dL (2.5-4.5) 03/26/17 06:37 Urine Creatinine 28.0 mg/dL (0.1-20.0) H 03/20/17 Unknown Urine Sodium 112 mEq/L 03/20/17 Unknown Urine Total Protein 7 mg/dL (5-11.8) 03/20/17 Unknown
[2017-03-27] MEDS: TRENTAL PO SCH ×3 (12:23→22:56)
--- NOTE | 2017-03-27 12:37 | Progress Note ---
Assessment and Plan Assessment and plan: Acute on chronic renal failure stage IV; on hemodialysis per nephrology, Case management to set up outpatient hemodialysis chair, multiple social issues Non-ST elevation [place]; continue aspirin and beta blockers BARBER inhibitor nitrates and statins, left heart cath canceled , due to absence of palpable arterial pulses, bilateral femoral, R radial and R brachial. no reversible ischemia , fixed defect on MPI 07/2016, ejection fraction 40-45% on echo Type 2 diabetes mellitus; blood sugars moderate control Closely monitor blood sugars, Accu-Cheks sliding scale coverage, consistent carb diet Acute on chronic systolic congestive heart failure Ejection fraction 40-45%, continue anti-failure medications -Dyslipidemia; continue current lipid-lowering medications Hypertension; moderate control, continue current antihypertensives and when necessary medications Morbid obesity; advised dietary modification and exercise as tolerated and weight reduction when medically stable Moderate protein calorie malnutrition; supportive care, nutrition supplements DVT prophylaxis with heparin Discharge planning per Case management, patient is medically stable for discharge, after outpatient dialysis arranged Hospitalist Physical - Physical exam Narrative exam: Gen:Not in acute distress, lying in bed, Obese HEENT: Normocephalic, atraumatic Neck:Supple, No JVD Lungs: Clear to auscultation bilaterally, no rhonchi, No crackles Heart:S1 and S2 reg, no murmurs, rubs or gallop Abdomen: soft, Non tender, Non distended, normal bowel sounds Extremity:No tenderness, no edema, no clubbing, no cyanosis Neuro:Awake,alert,oriented x 3, non focal - Constitutional Vitals: Temp Pulse Resp BP Pulse Ox 98.3 F 78 18 173/61 87 03/27/17 03:55 03/27/17 10:34 03/27/17 03:55 03/27/17 10:34 03/27/17 03:55 General appearance: Present: no acute distress, well-nourished, obese Results - Labs CBC & Chem 7: 03/29/17 06:54 03/29/17 06:54 Labs: Laboratory Last Values WBC 11.0 K/mm3 (4.5-11.0) 03/27/17 04:42 RBC 3.48 M/mm3 (3.65-5.03) L 03/27/17 04:42 Hgb 10.1 gm/dl (10.1-14.3) 03/27/17 04:42 Hct 30.5 % (30.3-42.9) 03/27/17 04:42 MCV 88 fl (79-97) 03/27/17 04:42 MCH 29 pg (28-32) 03/27/17 04:42 MCHC 33 % (30-34) 03/27/17 04:42 RDW 13.4 % (13.2-15.2) 03/27/17 04:42 Plt Count 148 K/mm3 (140-440) 03/27/17 04:42 Lymph % (Auto) 15.3 % (13.4-35.0) 03/27/17 04:42 [place] % (Auto) 7.8 % (0.0-7.3) H 03/27/17 04:42 Eos % (Auto) 2.7 % (0.0-4.3) 03/27/17 04:42 Baso % (Auto) 0.7 % (0.0-1.8) 03/27/17 04:42 Lymph # 1.7 K/mm3 (1.2-5.4) 03/27/17 04:42 [place] # 0.9 K/mm3 (0.0-0.8) H 03/27/17 04:42 Eos # 0.3 K/mm3 (0.0-0.4) 03/27/17 04:42 Baso # 0.1 K/mm3 (0.0-0.1) 03/27/17 04:42 Seg Neutrophils % 73.5 % (40.0-70.0) H 03/27/17 04:42 Seg Neutrophils # 8.1 K/mm3 (1.8-7.7) H 03/27/17 04:42 PT 13.8 Sec. (12.2-14.9) 03/19/17 04:23 INR 1.01 (0.87-1.13) 03/19/17 04:23 APTT 36.0 Sec. (24.2-36.6) 03/19/17 04:23 Heparin Anti-Xa Level 0.68 U.I./ml (0.3-0.7) 03/19/17 11:55 Sodium 136 mmol/L (137-145) L 03/27/17 04:42 Potassium 3.3 mmol/L (3.6-5.0) L 03/27/17 04:42 Chloride 96.3 mmol/L (98-107) L 03/27/17 04:42 Carbon Dioxide 27 mmol/L (22-30) 03/27/17 04:42 Anion Gap 16 mmol/L 03/27/17 04:42 BUN 15 mg/dL (7-17) 03/27/17 04:42 Creatinine 3.3 mg/dL (0.7-1.2) H 03/27/17 04:42 Estimated GFR 14 ml/min 03/27/17 04:42 BUN/Creatinine Ratio 5 % 03/27/17 04:42 Glucose 82 mg/dL (65-100) 03/27/17 04:42 POC Glucose 94 (70-105) 03/27/17 08:23 Calcium 8.0 mg/dL (8.4-10.2) L 03/27/17 04:42 Phosphorus 4.10 mg/dL (2.5-4.5) 03/26/17 06:37 Total Bilirubin 0.20 mg/dL (0.1-1.2) 03/20/17 06:13 AST 18 units/L (5-40) 03/20/17 06:13 ALT 15 units/L (7-56) 03/20/17 06:13 Alkaline Phosphatase 86 units/L (35-129) 03/20/17 06:13 Total Creatine Kinase 180 units/L (30-135) H 03/19/17 04:23 CK-MB (CK-2) 10.5 ng/mL (0.0-4.0) H 03/19/17 04:23 CK-MB (CK-2) Rel Index 5.8 (0-4) H 03/19/17 04:23 Troponin T 0.141 ng/mL (0.00-0.029) H* 03/19/17 04:23 NT-Pro-B Natriuret Pep 16677 pg/mL (0-900) H 03/18/17 19:43 Serum Total Protein 5.1 g/dL (6.1-8.1) L 03/19/17 14:46 Total Protein 4.6 g/dL (6.3-8.2) L 03/20/17 06:13 Albumin 2.3 g/dL (3.9-5) L 03/20/17 06:13 Albumin/Globulin Ratio 1.0 % 03/20/17 06:13 Fqqzm-0-Zqfqjdctf 0.4 g/dL (0.2-0.3) H 03/19/17 14:46 Thicx-8-Sochlwvsm 1.0 g/dL (0.5-0.9) H 03/19/17 14:46 Beta Globulins 0.4 g/dL (0.2-0.5) 03/19/17 14:46 Gamma Globulins 0.7 g/dL (0.8-1.7) L 03/19/17 14:46 Abnorm Protein Band 1 see below 03/19/17 14:46 PEP Interpretation see below H 03/19/17 14:46 Triglycerides 195 mg/dL (2-149) H 03/18/17 17:05 Cholesterol 189 mg/dL (50-199) 03/18/17 17:05 LDL Cholesterol Direct 62 mg/dL (50-130) 03/18/17 17:05 HDL Cholesterol 88 mg/dL (40-59) H 03/18/17 17:05 Cholesterol/HDL Ratio 2.14 % 03/18/17 17:05 Urine Eosinophils 1% (None Seen) 03/20/17 Unknown Urine Creatinine 28.0 mg/dL (0.1-20.0) H 03/20/17 Unknown Protein/Creatinin Ratio 0.25 03/20/17 Unknown Urine Sodium 112 mEq/L 03/20/17 Unknown Urine Total Protein 7 mg/dL (5-11.8) 03/20/17 Unknown LISS Screen Negative (Negative) 03/19/17 14:46 Double Strand DNA Ab <1 IU/mL (<=4) 03/19/17 14:46 Glomerular Base Mem IgG <1.0 AI (<1.0) 03/19/17 14:46 Complement C3 123 mg/dL (90-180) 03/19/17 14:46 Complement C4 31 mg/dL (16-47) 03/19/17 14:46 Tot Complement (CH50) >60 U/mL (31-60) H 03/19/17 14:46 Hepatitis A IgM Ab Non-reactive (NonReactive) 03/19/17 20:35 Hep Bs Antigen Non-reactive (Negative) 03/19/17 20:35 Hep B Core IgM Ab Non-reactive (NonReactive) 03/19/17 20:35 Hepatitis C Antibody Non-reactive (NonReactive) 03/19/17 20:35 HIV 1&2 Antibody Rapid Non react (Non React) 03/19/17 14:46 HIV P24 Antigen Non react (Non React) 03/19/17 14:46 Miscellaneous Test Flexitest 1 H 03/21/17 05:55
[2017-03-27] MEDS: PRAVACHOL PO SCH (22:56)
[2017-03-28] MEDS: NITRO-BID 2% TP SCH ×4 (06:01→18:59)
[2017-03-28] MEDS: APRESOLINE PO SCH ×3 (06:02→21:56)
[2017-03-28 07:03] LABS: Eosinophils % (Auto) 3.8 % (0.0-4.3); Hematocrit 30.3 % (30.3-42.9); Hemoglobin 10.1 gm/dl (10.1-14.3); Mean Corpuscular HGB Conc 33 % (30-34); Mean Corpuscular Hemoglobin 29 pg (28-32); Mean Corpuscular Volume 87 fl (79-97); Platelet Count 165 K/mm3 (140-440); Red Blood Count 3.49 M/mm3 (3.65-5.03); Red Cell Distribution Width 13.4 % (13.2-15.2); White Blood Count 7.8 K/mm3 (4.5-11.0)
[2017-03-28 07:13] LABS: Calcium 8.1 mg/dL (8.4-10.2); Chloride 95.5 mmol/L (98-107); Potassium 3.3 mmol/L (3.6-5.0)
[2017-03-28] MEDS: GLUCOTROL PO SCH ×2 (09:14→19:05)
[2017-03-28] MEDS: SODIUM BICARBONATE PO SCH ×3 (09:14→21:57)
[2017-03-28] MEDS: TRENTAL PO SCH ×3 (09:14→21:56)
[2017-03-28] MEDS: HEPARIN SUB-Q SCH ×2 (10:00→21:56)
[2017-03-28] MEDS: PROTONIX PO SCH (10:51)
[2017-03-28] MEDS: ASPIRIN PO SCH (10:51)
[2017-03-28] MEDS: LOPRESSOR PO SCH ×2 (10:53→21:56)
--- NOTE | 2017-03-28 11:15 | Progress Note ---
Assessment and Plan Volume overload Chronic renal failure initiated on dialysis Pulmonary edema Bilateral Pleural effusions Chest pain Cardiac cath procedure aborted due to absence of palpable arterial pulses, bilateral femoral, R radial and R brachial. fixed anteroapical defect, no reversible ischemia on MPI 07/2016 echocardiogram reports a preserved left ventricle systolic function done 2016 Hx of Anemia Diabetes Hypertension Hyperlipidemia Elevated troponin, chronic Recommendations: Proceed with conservative therapy in the absence of chest pain or angina Continue current medical management Patient may go home cardiac rios Subjective Date of service: 03/28/17 Principal diagnosis: severe renal failure Interval history: Patient is doing well She denies chest pain or shortness of breath Objective Vital Signs Temp Pulse Pulse Pulse Resp BP BP 03/28/17 10:53 72 125/46 03/28/17 10:52 72 125/46 03/28/17 10:00 84 88 84 03/28/17 08:41 98.1 F 71 18 163/61 03/28/17 06:02 76 195/58 03/28/17 06:01 76 195/58 03/28/17 05:39 98.8 F 76 18 195/58 03/28/17 00:23 98.7 F 82 21 153/54 03/27/17 23:00 75 98/29 03/27/17 22:59 75 98/29 03/27/17 20:14 98.6 F 75 18 98/29 03/27/17 18:05 98.6 F 75 18 163/55 03/27/17 17:39 74 03/27/17 15:07 70 135/54 03/27/17 12:12 70 135/54 03/27/17 12:11 98.5 F 70 18 135/54 Pulse Ox 03/28/17 10:53 03/28/17 10:52 03/28/17 10:00 03/28/17 08:41 98 03/28/17 06:02 03/28/17 06:01 03/28/17 05:39 98 03/28/17 00:23 96 03/27/17 23:00 03/27/17 22:59 03/27/17 20:14 97 03/27/17 18:05 96 03/27/17 17:39 96 03/27/17 15:07 03/27/17 12:12 99 03/27/17 12:11 99 - Physical Examination General: No Apparent Distress Neck: Positive: neck supple, trachea midline Cardiac: Positive: Reg Rate and Rhythm Lungs: Positive: Normal Exam Extremities: Absent: edema - Labs and Meds CBC 03/28/17 Range/Units 06:43 WBC 7.8 (4.5-11.0) K/mm3 RBC 3.49 L (3.65-5.03) M/mm3 Hgb 10.1 (10.1-14.3) gm/dl Hct 30.3 (30.3-42.9) % Plt Count 165 (140-440) K/mm3 Lymph # 1.4 (1.2-5.4) K/mm3 [place] # 0.7 (0.0-0.8) K/mm3 Eos # 0.3 (0.0-0.4) K/mm3 Baso # 0.1 (0.0-0.1) K/mm3 Comprehensive Metabolic Panel 03/28/17 Range/Units 06:43 Sodium 136 L (137-145) mmol/L Potassium 3.3 L (3.6-5.0) mmol/L Chloride 95.5 L (98-107) mmol/L Carbon Dioxide 28 (22-30) mmol/L BUN 23 H (7-17) mg/dL Creatinine 4.6 H (0.7-1.2) mg/dL Glucose 174 H (65-100) mg/dL Calcium 8.1 L (8.4-10.2) mg/dL
[2017-03-28] MEDS ORDERED: NACL 0.9% 100 ML IV PRN (15:38)
--- NOTE | 2017-03-28 16:14 | Progress Note ---
Assessment and Plan (1) Volume overload Current Visit: Yes Status: Acute Qualifiers: Hypervolemia type: H Plan to address problem: UF with HD tomorrow (2) ESRD on HD Current Visit: No Status: Acute Plan to address problem: no indication for HD today, HD ordered for tomorrow. Dr Weston consulted for permcath placement case management for outpt dialysis placement GN-work-up is negative Renally dose medications Obtain daily weights Monitor I/O's (3) Acute hyperkalemia Current Visit: Yes Status: Acute Plan to address problem: Resolved (4) Acute congestive heart failure Current Visit: No Status: Acute Qualifiers: Congestive heart failure type: systolic Qualified Code(s): I50.21 - Acute systolic (congestive) heart failure Plan to address problem: per cardiology (5) Diabetes mellitus Current Visit: Yes Status: Acute Qualifiers: Diabetes mellitus type: D Diabetes mellitus complication status: D Diabetes mellitus complication detail: D Diabetic retinopathy severity: D Proliferative retinopathy type: P Diabetes mellitus macular edema: D Diabetes mellitus 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 Subjective Date of service: 03/28/17 Principal diagnosis: severe renal failure Interval history: Denies CP/SHOB. Sitting in chair. Objective - Vital Signs Vital signs: Vital Signs - 12hr 03/28/17 03/28/17 03/28/17 05:39 06:01 06:02 Temperature 98.8 F Pulse Rate 76 76 76 Pulse Rate [ Apical] Pulse Rate [ From Monitor] Respiratory 18 Rate Blood Pressure 195/58 195/58 195/58 Blood Pressure [Left] O2 Sat by Pulse 98 Oximetry 03/28/17 03/28/17 03/28/17 08:41 10:00 10:52 Temperature 98.1 F Pulse Rate 71 84 72 Pulse Rate [ 88 Apical] Pulse Rate [ 84 From Monitor] Respiratory 18 Rate Blood Pressure 125/46 Blood Pressure 163/61 [Left] O2 Sat by Pulse 98 Oximetry 03/28/17 03/28/17 10:53 12:44 Temperature 98.3 F Pulse Rate 72 71 Pulse Rate [ Apical] Pulse Rate [ From Monitor] Respiratory 18 Rate Blood Pressure 125/46 Blood Pressure 169/63 [Left] O2 Sat by Pulse 99 Oximetry - Lab 03/28/17 06:43 03/28/17 06:43 Most recent lab results Calcium 8.1 mg/dL (8.4-10.2) L 03/28/17 06:43 Phosphorus 3.00 mg/dL (2.5-4.5) 03/28/17 06:43 Urine Creatinine 28.0 mg/dL (0.1-20.0) H 03/20/17 Unknown Urine Sodium 112 mEq/L 03/20/17 Unknown Urine Total Protein 7 mg/dL (5-11.8) 03/20/17 Unknown
--- NOTE | 2017-03-28 16:27 | Progress Note ---
Assessment and Plan Assessment and plan: Acute on chronic renal failure stage IV; on hemodialysis per nephrology, Case management to set up outpatient hemodialysis chair, multiple social issues Non-ST elevation NH; continue aspirin and beta blockers BARBER inhibitor nitrates and statins, left heart cath canceled , due to absence of palpable arterial pulses, bilateral femoral, R radial and R brachial. no reversible ischemia , fixed defect on MPI 07/2016, ejection fraction 40-45% on echo Type 2 diabetes mellitus; blood sugars moderate control Closely monitor blood sugars, Accu-Cheks sliding scale coverage, consistent carb diet Acute on chronic systolic congestive heart failure Ejection fraction 40-45%, continue anti-failure medications -Dyslipidemia; continue current lipid-lowering medications Hypertension; moderate control, continue current antihypertensives and when necessary medications Morbid obesity; advised dietary modification and exercise as tolerated and weight reduction when medically stable Moderate protein calorie malnutrition; supportive care, nutrition supplements DVT prophylaxis with heparin Discharge planning per Case management, patient is medically stable for discharge, after outpatient dialysis arranged History Interval history: No chest pain Hospitalist Physical - Physical exam Narrative exam: Gen:Not in acute distress, lying in bed, Obese HEENT: Normocephalic, atraumatic Neck:Supple, No JVD Lungs: Clear to auscultation bilaterally, no rhonchi, No crackles Heart:S1 and S2 reg, no murmurs, rubs or gallop Abdomen: soft, Non tender, Non distended, normal bowel sounds Extremity:No tenderness, no edema, no clubbing, no cyanosis Neuro:Awake,alert,oriented x 3, non focal - Constitutional Vitals: Temp Pulse Resp BP Pulse Ox 98.3 F 71 18 169/63 99 03/28/17 12:44 03/28/17 12:44 03/28/17 12:44 03/28/17 12:44 03/28/17 12:44 General appearance: Present: no acute distress, well-nourished, obese Results - Labs CBC & Chem 7: 03/29/17 06:54 03/30/17 11:23 Labs: Laboratory Last Values WBC 7.8 K/mm3 (4.5-11.0) 03/28/17 06:43 RBC 3.49 M/mm3 (3.65-5.03) L 03/28/17 06:43 Hgb 10.1 gm/dl (10.1-14.3) 03/28/17 06:43 Hct 30.3 % (30.3-42.9) 03/28/17 06:43 MCV 87 fl (79-97) 03/28/17 06:43 MCH 29 pg (28-32) 03/28/17 06:43 MCHC 33 % (30-34) 03/28/17 06:43 RDW 13.4 % (13.2-15.2) 03/28/17 06:43 Plt Count 165 K/mm3 (140-440) 03/28/17 06:43 Lymph % (Auto) 17.7 % (13.4-35.0) 03/28/17 06:43 [place] % (Auto) 8.5 % (0.0-7.3) H 03/28/17 06:43 Eos % (Auto) 3.8 % (0.0-4.3) 03/28/17 06:43 Baso % (Auto) 1.0 % (0.0-1.8) 03/28/17 06:43 Lymph # 1.4 K/mm3 (1.2-5.4) 03/28/17 06:43 [place] # 0.7 K/mm3 (0.0-0.8) 03/28/17 06:43 Eos # 0.3 K/mm3 (0.0-0.4) 03/28/17 06:43 Baso # 0.1 K/mm3 (0.0-0.1) 03/28/17 06:43 Seg Neutrophils % 69.0 % (40.0-70.0) 03/28/17 06:43 Seg Neutrophils # 5.4 K/mm3 (1.8-7.7) 03/28/17 06:43 PT 13.8 Sec. (12.2-14.9) 03/19/17 04:23 INR 1.01 (0.87-1.13) 03/19/17 04:23 APTT 36.0 Sec. (24.2-36.6) 03/19/17 04:23 Heparin Anti-Xa Level 0.68 U.I./ml (0.3-0.7) 03/19/17 11:55 Sodium 136 mmol/L (137-145) L 03/28/17 06:43 Potassium 3.3 mmol/L (3.6-5.0) L 03/28/17 06:43 Chloride 95.5 mmol/L (98-107) L 03/28/17 06:43 Carbon Dioxide 28 mmol/L (22-30) 03/28/17 06:43 Anion Gap 16 mmol/L 03/28/17 06:43 BUN 23 mg/dL (7-17) H 03/28/17 06:43 Creatinine 4.6 mg/dL (0.7-1.2) H 03/28/17 06:43 Estimated GFR 10 ml/min 03/28/17 06:43 BUN/Creatinine Ratio 5 % 03/28/17 06:43 Glucose 174 mg/dL (65-100) H 03/28/17 06:43 POC Glucose 171 (70-105) H 03/27/17 22:37 Calcium 8.1 mg/dL (8.4-10.2) L 03/28/17 06:43 Phosphorus 3.00 mg/dL (2.5-4.5) 03/28/17 06:43 Total Bilirubin 0.20 mg/dL (0.1-1.2) 03/20/17 06:13 AST 18 units/L (5-40) 03/20/17 06:13 ALT 15 units/L (7-56) 03/20/17 06:13 Alkaline Phosphatase 86 units/L (35-129) 03/20/17 06:13 Total Creatine Kinase 180 units/L (30-135) H 03/19/17 04:23 CK-MB (CK-2) 10.5 ng/mL (0.0-4.0) H 03/19/17 04:23 CK-MB (CK-2) Rel Index 5.8 (0-4) H 03/19/17 04:23 Troponin T 0.141 ng/mL (0.00-0.029) H* 03/19/17 04:23 NT-Pro-B Natriuret Pep 30757 pg/mL (0-900) H 03/18/17 19:43 Serum Total Protein 5.1 g/dL (6.1-8.1) L 03/19/17 14:46 Total Protein 4.6 g/dL (6.3-8.2) L 03/20/17 06:13 Albumin 2.3 g/dL (3.9-5) L 03/20/17 06:13 Albumin/Globulin Ratio 1.0 % 03/20/17 06:13 Hinxw-7-Cwnphqlnp 0.4 g/dL (0.2-0.3) H 03/19/17 14:46 Xcgec-0-Txfinlura 1.0 g/dL (0.5-0.9) H 03/19/17 14:46 Beta Globulins 0.4 g/dL (0.2-0.5) 03/19/17 14:46 Gamma Globulins 0.7 g/dL (0.8-1.7) L 03/19/17 14:46 Abnorm Protein Band 1 see below 03/19/17 14:46 PEP Interpretation see below H 03/19/17 14:46 Triglycerides 195 mg/dL (2-149) H 03/18/17 17:05 Cholesterol 189 mg/dL (50-199) 03/18/17 17:05 LDL Cholesterol Direct 62 mg/dL (50-130) 03/18/17 17:05 HDL Cholesterol 88 mg/dL (40-59) H 03/18/17 17:05 Cholesterol/HDL Ratio 2.14 % 03/18/17 17:05 Urine Eosinophils 1% (None Seen) 03/20/17 Unknown Urine Creatinine 28.0 mg/dL (0.1-20.0) H 03/20/17 Unknown Protein/Creatinin Ratio 0.25 03/20/17 Unknown Urine Sodium 112 mEq/L 03/20/17 Unknown Urine Total Protein 7 mg/dL (5-11.8) 03/20/17 Unknown LISS Screen Negative (Negative) 03/19/17 14:46 Double Strand DNA Ab <1 IU/mL (<=4) 03/19/17 14:46 Glomerular Base Mem IgG <1.0 AI (<1.0) 03/19/17 14:46 Complement C3 123 mg/dL (90-180) 03/19/17 14:46 Complement C4 31 mg/dL (16-47) 03/19/17 14:46 Tot Complement (CH50) >60 U/mL (31-60) H 03/19/17 14:46 Hepatitis A IgM Ab Non-reactive (NonReactive) 03/19/17 20:35 Hep Bs Antigen Non-reactive (Negative) 03/19/17 20:35 Hep B Core IgM Ab Non-reactive (NonReactive) 03/19/17 20:35 Hepatitis C Antibody Non-reactive (NonReactive) 03/19/17 20:35 HIV 1&2 Antibody Rapid Non react (Non React) 03/19/17 14:46 HIV P24 Antigen Non react (Non React) 03/19/17 14:46 Miscellaneous Test Flexitest 1 H 03/21/17 05:55
[2017-03-28] MEDS: PRAVACHOL PO SCH (21:57)
[2017-03-29] MEDS: NITRO-BID 2% TP SCH ×3 (05:56→15:48)
[2017-03-29] MEDS: APRESOLINE PO SCH ×3 (05:56→22:31)
[2017-03-29 07:17] LABS: Basophils % (Auto) 0.7 % (0.0-1.8); Eosinophils % (Auto) 3.4 % (0.0-4.3); Hematocrit 29.4 % (30.3-42.9); Hemoglobin 9.5 gm/dl (10.1-14.3); Mean Corpuscular HGB Conc 32 % (30-34); Mean Corpuscular Hemoglobin 28 pg (28-32); Mean Corpuscular Volume 86 fl (79-97); Platelet Count 171 K/mm3 (140-440); Red Cell Distribution Width 13.4 % (13.2-15.2); White Blood Count 7.2 K/mm3 (4.5-11.0)
[2017-03-29 07:26] LABS: Calcium 8.3 mg/dL (8.4-10.2); Chloride 95.4 mmol/L (98-107); Potassium 3.3 mmol/L (3.6-5.0)
[2017-03-29] MEDS: GLUCOTROL PO SCH (09:06)
[2017-03-29] MEDS: SODIUM BICARBONATE PO SCH ×3 (09:06→22:30)
[2017-03-29] MEDS: TRENTAL PO SCH ×3 (09:06→22:31)
[2017-03-29] MEDS: PROTONIX PO SCH (10:00)
[2017-03-29] MEDS: LOPRESSOR PO SCH ×2 (10:00→22:32)
[2017-03-29] MEDS: ASPIRIN PO SCH (10:00)
--- NOTE | 2017-03-29 10:20 | Progress Note ---
Assessment and Plan (1) Volume overload Current Visit: Yes Status: Acute Qualifiers: Hypervolemia type: H Plan to address problem: UF with HD (2) ESRD on HD Current Visit: No Status: Acute Plan to address problem: HD today for clearance and volume removal consult changed to Dr Whatley for permcath placement case management for outpt dialysis placement GN-work-up is negative Renally dose medications Obtain daily weights Monitor I/O's (3) Acute hyperkalemia Current Visit: Yes Status: Acute Plan to address problem: Resolved (4) Acute congestive heart failure Current Visit: No Status: Acute Qualifiers: Congestive heart failure type: systolic Qualified Code(s): I50.21 - Acute systolic (congestive) heart failure Plan to address problem: per cardiology (5) Diabetes mellitus Current Visit: Yes Status: Acute Qualifiers: Diabetes mellitus type: D Diabetes mellitus complication status: D Diabetes mellitus complication detail: D Diabetic retinopathy severity: D Proliferative retinopathy type: P Diabetes mellitus macular edema: D Diabetes mellitus 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 Subjective Date of service: 03/29/17 Principal diagnosis: severe renal failure Interval history: seen during HD, tolerating Objective - Vital Signs Vital signs: Vital Signs - 12hr 03/29/17 03/29/17 03/29/17 00:14 05:56 08:39 Temperature 98.0 F 98.6 F Pulse Rate 73 73 75 Pulse Rate [ From Monitor] Respiratory 16 18 Rate Blood Pressure 169/49 169/49 Blood Pressure 117/56 [Left] O2 Sat by Pulse 96 100 Oximetry 03/29/17 09:18 Temperature Pulse Rate Pulse Rate [ 72 From Monitor] Respiratory Rate Blood Pressure Blood Pressure [Left] O2 Sat by Pulse Oximetry - General Appearance General appearance: well-developed, well-nourished, appears stated age EENT: ATNC, PERRL, mucous membranes moist Neck: no JVD, no carotid bruit Respiratory: Present: Clear to Ascultation Cardiology: regular, S1S2 Gastrointestinal: normoactive bowel sounds Integumentary: no rash, warm and dry Neurologic: no focal deficit, no asterixis, alert and oriented x3 Musculoskeletal: other (no edema in BLE) Psychiatric: mood/affect appropriate, cooperative - Lab 03/29/17 06:54 03/29/17 06:54 Most recent lab results Calcium 8.3 mg/dL (8.4-10.2) L 03/29/17 06:54 Phosphorus 3.00 mg/dL (2.5-4.5) 03/28/17 06:43 Urine Creatinine 28.0 mg/dL (0.1-20.0) H 03/20/17 Unknown Urine Sodium 112 mEq/L 03/20/17 Unknown Urine Total Protein 7 mg/dL (5-11.8) 03/20/17 Unknown
--- NOTE | 2017-03-29 11:53 | Progress Note ---
Assessment and Plan Volume overload Chronic renal failure initiated on dialysis Pulmonary edema Bilateral Pleural effusions Chest pain Cardiac cath procedure aborted due to absence of palpable arterial pulses, bilateral femoral, R radial and R brachial. fixed anteroapical defect, no reversible ischemia on MPI 07/2016 echocardiogram reports a mild decreased systolic function, EF 40-45% Hx of Anemia Diabetes Hypertension Hyperlipidemia Elevated troponin, chronic Recommendations: Conservative cardiac management in the absence of chest pain or angina. Continue medical therapy for underlying coronary artery disease to include aspirin, long-acting nitrates, beta blockers and statin therapy as tolerated. Dialysis for fluid management. Subjective Date of service: 03/29/17 Principal diagnosis: severe renal failure Interval history: Patient is resting in bed comfortably. She denies chest pain. Objective Vital Signs Temp Pulse Pulse Resp BP BP Pulse Ox 03/29/17 10:15 71 105/41 03/29/17 10:00 71 151/38 03/29/17 09:45 98.5 F 77 18 154/58 03/29/17 09:18 72 03/29/17 08:39 98.6 F 75 18 117/56 100 03/29/17 05:56 73 169/49 03/29/17 00:14 98.0 F 73 16 169/49 96 03/28/17 21:56 74 166/38 03/28/17 19:34 98.0 F 74 20 166/38 96 03/28/17 18:54 71 160/52 03/28/17 18:53 71 160/52 03/28/17 17:07 98.0 F 71 18 160/52 100 03/28/17 12:44 98.3 F 71 18 169/63 99 - Physical Examination General: No Apparent Distress Cardiac: Positive: Reg Rate and Rhythm Extremities: Absent: edema - Labs and Meds CBC 03/29/17 Range/Units 06:54 WBC 7.2 (4.5-11.0) K/mm3 RBC 3.40 L (3.65-5.03) M/mm3 Hgb 9.5 L (10.1-14.3) gm/dl Hct 29.4 L (30.3-42.9) % Plt Count 171 (140-440) K/mm3 Lymph # 1.3 (1.2-5.4) K/mm3 [place] # 0.6 (0.0-0.8) K/mm3 Eos # 0.2 (0.0-0.4) K/mm3 Baso # 0.1 (0.0-0.1) K/mm3 Comprehensive Metabolic Panel 03/29/17 Range/Units 06:54 Sodium 135 L (137-145) mmol/L Potassium 3.3 L (3.6-5.0) mmol/L Chloride 95.4 L (98-107) mmol/L Carbon Dioxide 26 (22-30) mmol/L BUN 28 H (7-17) mg/dL Creatinine 5.4 H (0.7-1.2) mg/dL Glucose 103 H (65-100) mg/dL Calcium 8.3 L (8.4-10.2) mg/dL
[2017-03-29] MEDS ORDERED: NACL 0.9 (PRIMING MACHINE ONLY DIALYSIS) MC ONE (12:25)
[2017-03-29] MEDS: HEPARIN IV PRN (12:45)
[2017-03-29] MEDS: HEPARIN SUB-Q SCH ×2 (13:45→22:31)
--- NOTE | 2017-03-29 16:29 | Progress Note ---
Assessment and Plan Assessment and plan: Acute on chronic renal failure stage IV; on hemodialysis per nephrology, Case management to set up outpatient hemodialysis chair, multiple social issues Non-ST elevation [place]; continue aspirin and beta blockers BARBER inhibitor nitrates and statins, left heart cath canceled , due to absence of palpable arterial pulses, bilateral femoral, R radial and R brachial. no reversible ischemia , fixed defect on MPI 07/2016, ejection fraction 40-45% on echo Type 2 diabetes mellitus; blood sugars moderate control Closely monitor blood sugars, Accu-Cheks sliding scale coverage, consistent carb diet Acute on chronic systolic congestive heart failure Ejection fraction 40-45%, continue anti-failure medications -Dyslipidemia; continue current lipid-lowering medications Hypertension; moderate control, continue current antihypertensives and when necessary medications Morbid obesity; advised dietary modification and exercise as tolerated and weight reduction when medically stable Moderate protein calorie malnutrition; supportive care, nutrition supplements DVT prophylaxis with heparin For Permcath placement tomorrow Discharge planning per Case management, patient is medically stable for discharge, after outpatient dialysis arranged History Interval history: No chest pain, no SOB Hospitalist Physical - Physical exam Narrative exam: Gen:Not in acute distress, lying in bed, Obese HEENT: Normocephalic, atraumatic Neck:Supple, No JVD Lungs: Clear to auscultation bilaterally, no rhonchi, No crackles Heart:S1 and S2 reg, no murmurs, rubs or gallop Abdomen: soft, Non tender, Non distended, normal bowel sounds Extremity:No tenderness, no edema, no clubbing, no cyanosis Neuro:Awake,alert,oriented x 3, non focal - Constitutional Vitals: Temp Pulse Resp BP Pulse Ox 98.2 F 77 18 157/60 100 03/29/17 12:50 03/29/17 15:48 03/29/17 12:50 03/29/17 15:48 03/29/17 08:39 General appearance: Present: no acute distress, well-nourished, obese Results - Labs CBC & Chem 7: 03/29/17 06:54 03/30/17 11:23 Labs: Laboratory Last Values WBC 7.2 K/mm3 (4.5-11.0) 03/29/17 06:54 RBC 3.40 M/mm3 (3.65-5.03) L 03/29/17 06:54 Hgb 9.5 gm/dl (10.1-14.3) L 03/29/17 06:54 Hct 29.4 % (30.3-42.9) L 03/29/17 06:54 MCV 86 fl (79-97) 03/29/17 06:54 MCH 28 pg (28-32) 03/29/17 06:54 MCHC 32 % (30-34) 03/29/17 06:54 RDW 13.4 % (13.2-15.2) 03/29/17 06:54 Plt Count 171 K/mm3 (140-440) 03/29/17 06:54 Lymph % (Auto) 18.2 % (13.4-35.0) 03/29/17 06:54 [place] % (Auto) 8.5 % (0.0-7.3) H 03/29/17 06:54 Eos % (Auto) 3.4 % (0.0-4.3) 03/29/17 06:54 Baso % (Auto) 0.7 % (0.0-1.8) 03/29/17 06:54 Lymph # 1.3 K/mm3 (1.2-5.4) 03/29/17 06:54 [place] # 0.6 K/mm3 (0.0-0.8) 03/29/17 06:54 Eos # 0.2 K/mm3 (0.0-0.4) 03/29/17 06:54 Baso # 0.1 K/mm3 (0.0-0.1) 03/29/17 06:54 Seg Neutrophils % 69.2 % (40.0-70.0) 03/29/17 06:54 Seg Neutrophils # 5.0 K/mm3 (1.8-7.7) 03/29/17 06:54 PT 13.8 Sec. (12.2-14.9) 03/19/17 04:23 INR 1.01 (0.87-1.13) 03/19/17 04:23 APTT 36.0 Sec. (24.2-36.6) 03/19/17 04:23 Heparin Anti-Xa Level 0.68 U.I./ml (0.3-0.7) 03/19/17 11:55 Sodium 135 mmol/L (137-145) L 03/29/17 06:54 Potassium 3.3 mmol/L (3.6-5.0) L 03/29/17 06:54 Chloride 95.4 mmol/L (98-107) L 03/29/17 06:54 Carbon Dioxide 26 mmol/L (22-30) 03/29/17 06:54 Anion Gap 17 mmol/L 03/29/17 06:54 BUN 28 mg/dL (7-17) H 03/29/17 06:54 Creatinine 5.4 mg/dL (0.7-1.2) H 03/29/17 06:54 Estimated GFR 8 ml/min 03/29/17 06:54 BUN/Creatinine Ratio 5 % 03/29/17 06:54 Glucose 103 mg/dL (65-100) H 03/29/17 06:54 POC Glucose 142 (70-105) H 03/29/17 13:33 Calcium 8.3 mg/dL (8.4-10.2) L 03/29/17 06:54 Phosphorus 3.00 mg/dL (2.5-4.5) 03/28/17 06:43 Total Bilirubin 0.20 mg/dL (0.1-1.2) 03/20/17 06:13 AST 18 units/L (5-40) 03/20/17 06:13 ALT 15 units/L (7-56) 03/20/17 06:13 Alkaline Phosphatase 86 units/L (35-129) 03/20/17 06:13 Total Creatine Kinase 180 units/L (30-135) H 03/19/17 04:23 CK-MB (CK-2) 10.5 ng/mL (0.0-4.0) H 03/19/17 04:23 CK-MB (CK-2) Rel Index 5.8 (0-4) H 03/19/17 04:23 Troponin T 0.141 ng/mL (0.00-0.029) H* 03/19/17 04:23 NT-Pro-B Natriuret Pep 67466 pg/mL (0-900) H 03/18/17 19:43 Serum Total Protein 5.1 g/dL (6.1-8.1) L 03/19/17 14:46 Total Protein 4.6 g/dL (6.3-8.2) L 03/20/17 06:13 Albumin 2.3 g/dL (3.9-5) L 03/20/17 06:13 Albumin/Globulin Ratio 1.0 % 03/20/17 06:13 Wuvwh-7-Vzohuwbou 0.4 g/dL (0.2-0.3) H 03/19/17 14:46 Iwzho-9-Pecopwdux 1.0 g/dL (0.5-0.9) H 03/19/17 14:46 Beta Globulins 0.4 g/dL (0.2-0.5) 03/19/17 14:46 Gamma Globulins 0.7 g/dL (0.8-1.7) L 03/19/17 14:46 Abnorm Protein Band 1 see below 03/19/17 14:46 PEP Interpretation see below H 03/19/17 14:46 Triglycerides 195 mg/dL (2-149) H 03/18/17 17:05 Cholesterol 189 mg/dL (50-199) 03/18/17 17:05 LDL Cholesterol Direct 62 mg/dL (50-130) 03/18/17 17:05 HDL Cholesterol 88 mg/dL (40-59) H 03/18/17 17:05 Cholesterol/HDL Ratio 2.14 % 03/18/17 17:05 Urine Eosinophils 1% (None Seen) 03/20/17 Unknown Urine Creatinine 28.0 mg/dL (0.1-20.0) H 03/20/17 Unknown Protein/Creatinin Ratio 0.25 03/20/17 Unknown Urine Sodium 112 mEq/L 03/20/17 Unknown Urine Total Protein 7 mg/dL (5-11.8) 03/20/17 Unknown LISS Screen Negative (Negative) 03/19/17 14:46 Double Strand DNA Ab <1 IU/mL (<=4) 03/19/17 14:46 Glomerular Base Mem IgG <1.0 AI (<1.0) 03/19/17 14:46 Complement C3 123 mg/dL (90-180) 03/19/17 14:46 Complement C4 31 mg/dL (16-47) 03/19/17 14:46 Tot Complement (CH50) >60 U/mL (31-60) H 03/19/17 14:46 Hepatitis A IgM Ab Non-reactive (NonReactive) 03/19/17 20:35 Hep Bs Antigen Non-reactive (Negative) 03/19/17 20:35 Hep B Core IgM Ab Non-reactive (NonReactive) 03/19/17 20:35 Hepatitis C Antibody Non-reactive (NonReactive) 03/19/17 20:35 HIV 1&2 Antibody Rapid Non react (Non React) 03/19/17 14:46 HIV P24 Antigen Non react (Non React) 03/19/17 14:46 Anti-Streptolysin O Ab See scanned report 03/19/17 14:46 Miscellaneous Test Flexitest 1 H 03/21/17 05:55
[2017-03-29] MEDS: PRAVACHOL PO SCH (22:31)
[2017-03-30] MEDS: NITRO-BID 2% TP SCH ×3 (06:40→14:30)
[2017-03-30] MEDS: APRESOLINE PO SCH ×4 (06:41→22:46)
[2017-03-30] MEDS ORDERED: HEPARIN/NS 5000 UNIT/500ML(CATH LAB) 500 ML IR ONE (07:33)
[2017-03-30] MEDS ORDERED: SUBLIMAZE ONE (07:34)
[2017-03-30] MEDS ORDERED: ANCEF/STERILE WATER 2 GM/20 ML 0 GM/0 ML SYRINGE IV ONE (07:35)
[2017-03-30] MEDS ORDERED: NACL 0.9% 250ML 250 ML ONE (07:35)
[2017-03-30] MEDS ORDERED: VANCOMYCIN/NS 1 GM/250 ML 1 GM/250 ML BAG IV ONE (07:55)
[2017-03-30] MEDS: XYLOCAINE 2% INFILTRATI ONE ×2 (08:02→08:04)
[2017-03-30] MEDS: VERSED ONE ×2 (08:02→08:04)
[2017-03-30] MEDS: HEPARIN 10,000 UNITS/10 ML ONE ×2 (08:05→08:06)
[2017-03-30] MEDS: GLUCOTROL PO SCH ×2 (08:07→16:47)
--- NOTE | 2017-03-30 09:01 | Procedure Note ---
Date of procedure: 03/30/17 Pre-op diagnosis: ESRD, S/p Temporary Dialysis Catheter placement Post-op diagnosis: same Procedure: Left IJ Tunneled dialysis catheter placement Description of Procedure: Ms. Wade was seen and evaluated. The risks, benefits, complications, treatment options, and expected outcomes were discussed with the patient. The patient concurred with the proposed plan, giving informed consent. The site of surgery properly noted/marked. The patient was taken to manager laboratory, identified with name and , and the procedure verified. A Time Out was held and the above information confirmed along with the administration of antibiotics. The operative sites were prepped and draped in the usual sterile fashion. I accessed the old catheter with an 180 cm Amplatz wire after using 1% lidocaine for local. Using fluoroscopy I followed the wire into the right ventricle and was not able to guide it into the IVC. I dissected the cuff freely and removed the old catheter. I then placed the new dialysis catheter over the wire and followed it into the right atrium on fluoroscopy. Each port of the catheter withdrew venous blood easily and vigorously, and each flushed easily. On fluoroscopy the tip of the catheter was in the right atrium and there were no kinks in the catheter. The catheter was sutured in place with prolene followed by Biopatch and sterile dressings. I placed additional prolene suture around the chest exit area and neck area. The patient tolerated the procedure well and there were no complications. Anesthesia: local Surgeon: MARY RON Estimated blood loss: minimal Pathology: none Condition: stable Disposition: PACU
[2017-03-30] MEDS: HEPARIN SUB-Q SCH ×2 (09:51→22:48)
[2017-03-30] MEDS: LOPRESSOR PO SCH ×2 (10:00→22:47)
[2017-03-30] MEDS: PROTONIX PO SCH (10:01)
[2017-03-30] MEDS: ASPIRIN PO SCH (10:01)
[2017-03-30] MEDS: D50W (25GM) Vial IV PRN (10:01)
[2017-03-30] MEDS: SODIUM BICARBONATE PO SCH ×3 (10:01→22:46)
--- NOTE | 2017-03-30 10:36 | Progress Note ---
Assessment and Plan (1) Volume overload Current Visit: Yes Status: Acute Qualifiers: Hypervolemia type: H Plan to address problem: UF with HD (2) ESRD on HD Current Visit: No Status: Acute Plan to address problem: no indication for HD today s/p permcath today case management for outpt dialysis placement GN-work-up is negative Renally dose medications Obtain daily weights Monitor I/O's (3) Acute hyperkalemia Current Visit: Yes Status: Acute Plan to address problem: Resolved (4) Acute congestive heart failure Current Visit: No Status: Acute Qualifiers: Congestive heart failure type: systolic Qualified Code(s): I50.21 - Acute systolic (congestive) heart failure Plan to address problem: per cardiology (5) Diabetes mellitus Current Visit: Yes Status: Acute Qualifiers: Diabetes mellitus type: D Diabetes mellitus complication status: D Diabetes mellitus complication detail: D Diabetic retinopathy severity: D Proliferative retinopathy type: P Diabetes mellitus macular edema: D Diabetes mellitus correction insulin use: D Laterality: L Chronic kidney disease stage: C Plan to address problem: As per primary team (6) Hypertension Current Visit: Yes Status: Acute Qualifiers: Hypertension type: H Plan to address problem: Continue on anti-hypertensive agents. Subjective Date of service: 03/30/17 Principal diagnosis: severe renal failure Interval history: s/p permcath placement this AM, tolerated well Objective - Vital Signs Vital signs: Vital Signs - 12hr 03/29/17 03/30/17 03/30/17 23:32 01:05 04:04 Temperature 98.0 F Pulse Rate 80 78 84 Respiratory 18 18 18 Rate Blood Pressure 144/48 114/44 Blood Pressure 144/48 [Left] O2 Sat by Pulse 100 100 98 Oximetry 03/30/17 03/30/17 06:45 10:00 Temperature 98.1 F 98.8 F Pulse Rate 83 74 Respiratory 16 19 Rate Blood Pressure 176/57 Blood Pressure 161/55 176/57 [Left] O2 Sat by Pulse 98 95 Oximetry - General Appearance General appearance: well-developed, well-nourished, appears stated age EENT: ATNC, PERRL, mucous membranes moist Neck: no JVD, no carotid bruit Respiratory: Present: Clear to Ascultation. Absent: Rales, Ronchi Cardiology: regular, S1S2 Gastrointestinal: normoactive bowel sounds, no tenderness, no distended, obese Integumentary: no rash, warm and dry Neurologic: no focal deficit, no asterixis, alert and oriented x3 Psychiatric: mood/affect appropriate - Lab 03/29/17 06:54 03/29/17 06:54 Most recent lab results Calcium 8.3 mg/dL (8.4-10.2) L 03/29/17 06:54 Phosphorus 3.00 mg/dL (2.5-4.5) 03/28/17 06:43 Urine Creatinine 28.0 mg/dL (0.1-20.0) H 03/20/17 Unknown Urine Sodium 112 mEq/L 03/20/17 Unknown Urine Total Protein 7 mg/dL (5-11.8) 03/20/17 Unknown
--- NOTE | 2017-03-30 10:50 | Progress Note ---
Assessment and Plan Volume overload Chronic renal failure initiated on dialysis Pulmonary edema Bilateral Pleural effusions Chest pain Cardiac cath procedure aborted due to absence of palpable arterial pulses, bilateral femoral, R radial and R brachial. fixed anteroapical defect, no reversible ischemia on MPI 07/2016 echocardiogram reports a mild decreased systolic function, EF 40-45% Hx of Anemia Diabetes Hypertension Hyperlipidemia Elevated troponin, chronic Recommendations: Conservative cardiac management in the absence of chest pain or angina. Continue medical therapy for underlying coronary artery disease to include aspirin, long-acting nitrates, beta blockers and statin therapy as tolerated. Dialysis for fluid management. Subjective Date of service: 03/30/17 Principal diagnosis: severe renal failure Interval history: Patient denies chest pain and shortness of breath. Objective Vital Signs Temp Pulse Resp BP BP Pulse Ox 03/30/17 10:00 98.8 F 74 19 176/57 176/57 95 03/30/17 06:45 98.1 F 83 16 161/55 98 03/30/17 04:04 84 18 114/44 98 03/30/17 01:05 98.0 F 78 18 144/48 100 03/29/17 23:32 80 18 144/48 100 03/29/17 22:32 79 109/43 03/29/17 22:31 79 109/43 03/29/17 20:04 173/56 03/29/17 20:00 86 177/49 100 03/29/17 17:23 98.3 F 77 18 157/60 96 03/29/17 15:48 77 157/60 03/29/17 15:47 77 157/60 03/29/17 15:41 98.1 F 77 18 157/60 97 03/29/17 12:50 98.2 F 85 18 179/41 03/29/17 12:45 72 178/54 03/29/17 12:30 72 151/38 03/29/17 12:15 71 108/36 03/29/17 12:00 78 88/82 03/29/17 11:45 70 151/50 03/29/17 11:30 72 137/43 03/29/17 11:15 73 132/52 03/29/17 11:00 73 126/47 - Physical Examination General: No Apparent Distress HEENT: Positive: PERRL Cardiac: Positive: Reg Rate and Rhythm
[2017-03-30] MEDS: TRENTAL PO SCH ×3 (14:22→22:46)
--- NOTE | 2017-03-30 17:47 | Progress Note ---
Assessment and Plan Assessment and plan: Acute on chronic renal failure stage IV; on hemodialysis per nephrology, Case management to set up outpatient hemodialysis chair, multiple social issues Non-ST elevation MD; continue aspirin and beta blockers BARBER inhibitor nitrates and statins, Left heart cath canceled , due to absence of palpable arterial pulses, bilateral femoral, R radial and R brachial. No reversible ischemia , fixed defect on MPI 07/2016, ejection fraction 40-45% on echo Type 2 diabetes mellitus; blood sugars moderate control Closely monitor blood sugars, Accu-Cheks sliding scale coverage, consistent carb diet Acute on chronic systolic congestive heart failure Ejection fraction 40-45%, continue anti-failure medications -Dyslipidemia; continue current lipid-lowering medications Hypertension; moderate control, continue current antihypertensives and when necessary medications Morbid obesity; advised dietary modification and exercise as tolerated and weight reduction when medically stable Moderate protein calorie malnutrition; supportive care, nutrition supplements DVT prophylaxis with heparin For Permcath placement tomorrow Discharge planning per Case management, Patient is medically stable for discharge, after outpatient dialysis arranged. For permcath today History Interval history: No chest pain, no SOB, Hospitalist Physical - Physical exam Narrative exam: Gen:Not in acute distress, lying in bed, Obese HEENT: Normocephalic, atraumatic Neck:Supple, No JVD Lungs: Clear to auscultation bilaterally, no rhonchi, No crackles Heart:S1 and S2 reg, no murmurs, rubs or gallop Abdomen: soft, Non tender, Non distended, normal bowel sounds Extremity:No tenderness, no edema, no clubbing, no cyanosis Neuro:Awake,alert,oriented x 3, non focal, moves all extremities - Constitutional Vitals: Temp Pulse Resp BP Pulse Ox 98.6 F 70 99 H 147/52 98 03/30/17 17:15 03/30/17 17:15 03/30/17 17:15 03/30/17 17:15 03/30/17 13:00 General appearance: Present: no acute distress, well-nourished, obese Results - Labs CBC & Chem 7: 03/31/17 09:14 03/31/17 09:14 Labs: Laboratory Last Values WBC 7.2 K/mm3 (4.5-11.0) 03/29/17 06:54 RBC 3.40 M/mm3 (3.65-5.03) L 03/29/17 06:54 Hgb 9.5 gm/dl (10.1-14.3) L 03/29/17 06:54 Hct 29.4 % (30.3-42.9) L 03/29/17 06:54 MCV 86 fl (79-97) 03/29/17 06:54 MCH 28 pg (28-32) 03/29/17 06:54 MCHC 32 % (30-34) 03/29/17 06:54 RDW 13.4 % (13.2-15.2) 03/29/17 06:54 Plt Count 171 K/mm3 (140-440) 03/29/17 06:54 Lymph % (Auto) 18.2 % (13.4-35.0) 03/29/17 06:54 [place] % (Auto) 8.5 % (0.0-7.3) H 03/29/17 06:54 Eos % (Auto) 3.4 % (0.0-4.3) 03/29/17 06:54 Baso % (Auto) 0.7 % (0.0-1.8) 03/29/17 06:54 Lymph # 1.3 K/mm3 (1.2-5.4) 03/29/17 06:54 [place] # 0.6 K/mm3 (0.0-0.8) 03/29/17 06:54 Eos # 0.2 K/mm3 (0.0-0.4) 03/29/17 06:54 Baso # 0.1 K/mm3 (0.0-0.1) 03/29/17 06:54 Seg Neutrophils % 69.2 % (40.0-70.0) 03/29/17 06:54 Seg Neutrophils # 5.0 K/mm3 (1.8-7.7) 03/29/17 06:54 PT 13.8 Sec. (12.2-14.9) 03/19/17 04:23 INR 1.01 (0.87-1.13) 03/19/17 04:23 APTT 36.0 Sec. (24.2-36.6) 03/19/17 04:23 Heparin Anti-Xa Level 0.68 U.I./ml (0.3-0.7) 03/19/17 11:55 Sodium 135 mmol/L (137-145) L 03/29/17 06:54 Potassium 3.3 mmol/L (3.6-5.0) L 03/29/17 06:54 Chloride 95.4 mmol/L (98-107) L 03/29/17 06:54 Carbon Dioxide 26 mmol/L (22-30) 03/29/17 06:54 Anion Gap 17 mmol/L 03/29/17 06:54 BUN 28 mg/dL (7-17) H 03/29/17 06:54 Creatinine 5.4 mg/dL (0.7-1.2) H 03/29/17 06:54 Estimated GFR 8 ml/min 03/29/17 06:54 BUN/Creatinine Ratio 5 % 03/29/17 06:54 Glucose 153 mg/dL (65-100) H 03/30/17 11:23 POC Glucose 93 (70-105) 03/30/17 06:59 Calcium 8.3 mg/dL (8.4-10.2) L 03/29/17 06:54 Phosphorus 3.00 mg/dL (2.5-4.5) 03/28/17 06:43 Total Bilirubin 0.20 mg/dL (0.1-1.2) 03/20/17 06:13 AST 18 units/L (5-40) 03/20/17 06:13 ALT 15 units/L (7-56) 03/20/17 06:13 Alkaline Phosphatase 86 units/L (35-129) 03/20/17 06:13 Total Creatine Kinase 180 units/L (30-135) H 03/19/17 04:23 CK-MB (CK-2) 10.5 ng/mL (0.0-4.0) H 03/19/17 04:23 CK-MB (CK-2) Rel Index 5.8 (0-4) H 03/19/17 04:23 Troponin T 0.141 ng/mL (0.00-0.029) H* 03/19/17 04:23 NT-Pro-B Natriuret Pep 85623 pg/mL (0-900) H 03/18/17 19:43 Serum Total Protein 5.1 g/dL (6.1-8.1) L 03/19/17 14:46 Total Protein 4.6 g/dL (6.3-8.2) L 03/20/17 06:13 Albumin 2.3 g/dL (3.9-5) L 03/20/17 06:13 Albumin/Globulin Ratio 1.0 % 03/20/17 06:13 Hhhfs-5-Dcilqzgak 0.4 g/dL (0.2-0.3) H 03/19/17 14:46 Ehupz-3-Ywrmkvzvt 1.0 g/dL (0.5-0.9) H 03/19/17 14:46 Beta Globulins 0.4 g/dL (0.2-0.5) 03/19/17 14:46 Gamma Globulins 0.7 g/dL (0.8-1.7) L 03/19/17 14:46 Abnorm Protein Band 1 see below 03/19/17 14:46 PEP Interpretation see below H 03/19/17 14:46 Triglycerides 195 mg/dL (2-149) H 03/18/17 17:05 Cholesterol 189 mg/dL (50-199) 03/18/17 17:05 LDL Cholesterol Direct 62 mg/dL (50-130) 03/18/17 17:05 HDL Cholesterol 88 mg/dL (40-59) H 03/18/17 17:05 Cholesterol/HDL Ratio 2.14 % 03/18/17 17:05 Urine Eosinophils 1% (None Seen) 03/20/17 Unknown Urine Creatinine 28.0 mg/dL (0.1-20.0) H 03/20/17 Unknown Protein/Creatinin Ratio 0.25 03/20/17 Unknown Urine Sodium 112 mEq/L 03/20/17 Unknown Urine Total Protein 7 mg/dL (5-11.8) 03/20/17 Unknown LISS Screen Negative (Negative) 03/19/17 14:46 Double Strand DNA Ab <1 IU/mL (<=4) 03/19/17 14:46 Glomerular Base Mem IgG <1.0 AI (<1.0) 03/19/17 14:46 Complement C3 123 mg/dL (90-180) 03/19/17 14:46 Complement C4 31 mg/dL (16-47) 03/19/17 14:46 Tot Complement (CH50) >60 U/mL (31-60) H 03/19/17 14:46 Hepatitis A IgM Ab Non-reactive (NonReactive) 03/19/17 20:35 Hep Bs Antigen Non-reactive (Negative) 03/19/17 20:35 Hep B Core IgM Ab Non-reactive (NonReactive) 03/19/17 20:35 Hepatitis C Antibody Non-reactive (NonReactive) 03/19/17 20:35 HIV 1&2 Antibody Rapid Non react (Non React) 03/19/17 14:46 HIV P24 Antigen Non react (Non React) 03/19/17 14:46 Anti-Streptolysin O Ab See scanned report 03/19/17 14:46 Miscellaneous Test Flexitest 1 H 03/21/17 05:55
[2017-03-30] MEDS: PRAVACHOL PO SCH (22:49)
[2017-03-31] MEDS: NITRO-BID 2% TP SCH ×3 (06:11→17:07)
[2017-03-31] MEDS: APRESOLINE PO SCH ×3 (06:12→21:33)
--- NOTE | 2017-03-31 09:18 | Progress Note ---
Assessment and Plan Assessment and plan: Acute on chronic renal failure stage IV; on hemodialysis per nephrology, Case management to set up outpatient hemodialysis chair, multiple social issues permcath placed yesterday Non-ST elevation [place]; continue aspirin and beta blockers BARBER inhibitor nitrates and statins, Left heart cath canceled , due to absence of palpable arterial pulses, bilateral femoral, R radial and R brachial. No reversible ischemia , fixed defect on MPI 07/2016, ejection fraction 40-45% on echo Type 2 diabetes mellitus; blood sugars moderate control Closely monitor blood sugars, Accu-Cheks sliding scale coverage, consistent carb diet Acute on chronic systolic congestive heart failure Ejection fraction 40-45%, continue anti-failure medications -Dyslipidemia; continue current lipid-lowering medications Hypertension; moderate control, continue current antihypertensives and when necessary medications Hypoglycemia episodes. Discontinue Glipizide. Check A1C Morbid obesity; advised dietary modification and exercise as tolerated and weight reduction when medically stable Moderate protein calorie malnutrition; supportive care, nutrition supplements DVT prophylaxis with heparin Permcath placed yesterday Discharge planning per Case management, Patient is medically stable for discharge, after outpatient dialysis arranged. History Interval history: No chest pain, no SOB, Hypoglycemia episodes yesterday and this morning, Mild bleeding from Permcath site resolved Hospitalist Physical - Physical exam Narrative exam: Gen:Not in acute distress, lying in bed, Obese HEENT: Normocephalic, atraumatic Neck:Supple, No JVD, Permcath on right Lungs: Clear to auscultation bilaterally, no rhonchi, No crackles, Heart:S1 and S2 reg, no murmurs, rubs or gallop Abdomen: soft, Non tender, Non distended, normal bowel sounds Extremity:No tenderness, no edema, no clubbing, no cyanosis Neuro:Awake,alert,oriented x 3, non focal, moves all extremities - Constitutional Vitals: Temp Pulse Resp BP Pulse Ox 97.9 F 71 20 150/42 99 03/31/17 04:24 03/31/17 06:12 03/31/17 04:24 03/31/17 06:12 03/31/17 04:24 General appearance: Present: no acute distress, well-nourished, obese Results - Labs CBC & Chem 7: 03/31/17 09:14 03/31/17 09:14 Labs: Laboratory Last Values WBC 7.2 K/mm3 (4.5-11.0) 03/29/17 06:54 RBC 3.40 M/mm3 (3.65-5.03) L 03/29/17 06:54 Hgb 9.5 gm/dl (10.1-14.3) L 03/29/17 06:54 Hct 29.4 % (30.3-42.9) L 03/29/17 06:54 MCV 86 fl (79-97) 03/29/17 06:54 MCH 28 pg (28-32) 03/29/17 06:54 MCHC 32 % (30-34) 03/29/17 06:54 RDW 13.4 % (13.2-15.2) 03/29/17 06:54 Plt Count 171 K/mm3 (140-440) 03/29/17 06:54 Lymph % (Auto) 18.2 % (13.4-35.0) 03/29/17 06:54 [place] % (Auto) 8.5 % (0.0-7.3) H 03/29/17 06:54 Eos % (Auto) 3.4 % (0.0-4.3) 03/29/17 06:54 Baso % (Auto) 0.7 % (0.0-1.8) 03/29/17 06:54 Lymph # 1.3 K/mm3 (1.2-5.4) 03/29/17 06:54 [place] # 0.6 K/mm3 (0.0-0.8) 03/29/17 06:54 Eos # 0.2 K/mm3 (0.0-0.4) 03/29/17 06:54 Baso # 0.1 K/mm3 (0.0-0.1) 03/29/17 06:54 Seg Neutrophils % 69.2 % (40.0-70.0) 03/29/17 06:54 Seg Neutrophils # 5.0 K/mm3 (1.8-7.7) 03/29/17 06:54 PT 13.8 Sec. (12.2-14.9) 03/19/17 04:23 INR 1.01 (0.87-1.13) 03/19/17 04:23 APTT 36.0 Sec. (24.2-36.6) 03/19/17 04:23 Heparin Anti-Xa Level 0.68 U.I./ml (0.3-0.7) 03/19/17 11:55 Sodium 135 mmol/L (137-145) L 03/29/17 06:54 Potassium 3.3 mmol/L (3.6-5.0) L 03/29/17 06:54 Chloride 95.4 mmol/L (98-107) L 03/29/17 06:54 Carbon Dioxide 26 mmol/L (22-30) 03/29/17 06:54 Anion Gap 17 mmol/L 03/29/17 06:54 BUN 28 mg/dL (7-17) H 03/29/17 06:54 Creatinine 5.4 mg/dL (0.7-1.2) H 03/29/17 06:54 Estimated GFR 8 ml/min 03/29/17 06:54 BUN/Creatinine Ratio 5 % 03/29/17 06:54 Glucose 153 mg/dL (65-100) H 03/30/17 11:23 POC Glucose 103 (70-105) 03/31/17 08:43 Calcium 8.3 mg/dL (8.4-10.2) L 03/29/17 06:54 Phosphorus 3.00 mg/dL (2.5-4.5) 03/28/17 06:43 Total Bilirubin 0.20 mg/dL (0.1-1.2) 03/20/17 06:13 AST 18 units/L (5-40) 03/20/17 06:13 ALT 15 units/L (7-56) 03/20/17 06:13 Alkaline Phosphatase 86 units/L (35-129) 03/20/17 06:13 Total Creatine Kinase 180 units/L (30-135) H 03/19/17 04:23 CK-MB (CK-2) 10.5 ng/mL (0.0-4.0) H 03/19/17 04:23 CK-MB (CK-2) Rel Index 5.8 (0-4) H 03/19/17 04:23 Troponin T 0.141 ng/mL (0.00-0.029) H* 03/19/17 04:23 NT-Pro-B Natriuret Pep 05631 pg/mL (0-900) H 03/18/17 19:43 Serum Total Protein 5.1 g/dL (6.1-8.1) L 03/19/17 14:46 Total Protein 4.6 g/dL (6.3-8.2) L 03/20/17 06:13 Albumin 2.3 g/dL (3.9-5) L 03/20/17 06:13 Albumin/Globulin Ratio 1.0 % 03/20/17 06:13 Zaztq-3-Mfubrtiog 0.4 g/dL (0.2-0.3) H 03/19/17 14:46 Hctkh-8-Oopmptszf 1.0 g/dL (0.5-0.9) H 03/19/17 14:46 Beta Globulins 0.4 g/dL (0.2-0.5) 03/19/17 14:46 Gamma Globulins 0.7 g/dL (0.8-1.7) L 03/19/17 14:46 Abnorm Protein Band 1 see below 03/19/17 14:46 PEP Interpretation see below H 03/19/17 14:46 Triglycerides 195 mg/dL (2-149) H 03/18/17 17:05 Cholesterol 189 mg/dL (50-199) 03/18/17 17:05 LDL Cholesterol Direct 62 mg/dL (50-130) 03/18/17 17:05 HDL Cholesterol 88 mg/dL (40-59) H 03/18/17 17:05 Cholesterol/HDL Ratio 2.14 % 03/18/17 17:05 Urine Eosinophils 1% (None Seen) 03/20/17 Unknown Urine Creatinine 28.0 mg/dL (0.1-20.0) H 03/20/17 Unknown Protein/Creatinin Ratio 0.25 03/20/17 Unknown Urine Sodium 112 mEq/L 03/20/17 Unknown Urine Total Protein 7 mg/dL (5-11.8) 03/20/17 Unknown LISS Screen Negative (Negative) 03/19/17 14:46 Double Strand DNA Ab <1 IU/mL (<=4) 03/19/17 14:46 Glomerular Base Mem IgG <1.0 AI (<1.0) 03/19/17 14:46 Complement C3 123 mg/dL (90-180) 03/19/17 14:46 Complement C4 31 mg/dL (16-47) 03/19/17 14:46 Tot Complement (CH50) >60 U/mL (31-60) H 03/19/17 14:46 Hepatitis A IgM Ab Non-reactive (NonReactive) 03/19/17 20:35 Hep Bs Antigen Non-reactive (Negative) 03/19/17 20:35 Hep B Core IgM Ab Non-reactive (NonReactive) 03/19/17 20:35 Hepatitis C Antibody Non-reactive (NonReactive) 03/19/17 20:35 HIV 1&2 Antibody Rapid Non react (Non React) 03/19/17 14:46 HIV P24 Antigen Non react (Non React) 03/19/17 14:46 Anti-Streptolysin O Ab See scanned report 03/19/17 14:46 Miscellaneous Test Flexitest 1 H 03/21/17 05:55
[2017-03-31 09:34] LABS: Hematocrit 28.1 % (30.3-42.9); Hemoglobin 9.3 gm/dl (10.1-14.3); Mean Corpuscular HGB Conc 33 % (30-34); Mean Corpuscular Hemoglobin 29 pg (28-32); Mean Corpuscular Volume 88 fl (79-97); Platelet Count 210 K/mm3 (140-440); Red Cell Distribution Width 13.7 % (13.2-15.2); White Blood Count 8.4 K/mm3 (4.5-11.0)
[2017-03-31 09:53] LABS: Calcium 8.3 mg/dL (8.4-10.2); Chloride 97.7 mmol/L (98-107); Potassium 3.9 mmol/L (3.6-5.0)
--- NOTE | 2017-03-31 10:28 | Progress Note ---
Assessment and Plan 1. End stage renal disease. 2. Ischemic cardiomyopathy LV ejection fraction 40-45% 3. Type 2 diabetes mellitus 4. Essential hypertension 5. Hyperlipidemia Plan. Cardiac-rios stable left heart cath unsuccessful due to lack of access. Patient to be treated conservatively post dialysis will be discharged home on anti-ischemic medication with a plan for coronary CT angiogram as an outpatient Subjective Date of service: 03/31/17 Principal diagnosis: severe renal failure Interval history: No cardiac symptoms Objective Vital Signs Temp Pulse Resp BP BP Pulse Ox 03/31/17 06:12 71 150/42 03/31/17 06:11 71 150/42 03/31/17 04:24 97.9 F 71 20 150/42 99 03/31/17 02:35 69 178/69 03/31/17 02:31 178/69 03/30/17 23:58 97.9 F 86 22 199/68 100 03/30/17 22:47 82 176/52 03/30/17 22:46 82 176/52 03/30/17 21:00 76 03/30/17 20:16 98.1 F 82 20 176/52 97 03/30/17 17:15 98.6 F 70 99 H 147/52 03/30/17 14:30 71 125/51 03/30/17 14:29 71 125/51 03/30/17 13:00 98.6 F 71 18 125/51 98 - Physical Examination General: Appears Well, No Apparent Distress, Other (obese) HEENT: Positive: PERRL, Normocephaly, Mucus Membranes Moist Neck: Positive: neck supple, trachea midline. Negative: JVD/HJR Cardiac: Positive: Regular Rate, S1/S2, PMI, Laterally Displaced Lungs: Positive: clear to auscultation, No Wheeze, Rales, Rhonchi Neuro: Positive: Grossly Intact Abdomen: Positive: Unremarkable, Soft Extremities: Absent: edema - Labs and Meds CBC 03/31/17 Range/Units 09:14 WBC 8.4 (4.5-11.0) K/mm3 RBC 3.20 L (3.65-5.03) M/mm3 Hgb 9.3 L (10.1-14.3) gm/dl Hct 28.1 L (30.3-42.9) % Plt Count 210 (140-440) K/mm3 Comprehensive Metabolic Panel 03/30/17 03/31/17 Range/Units 11:23 09:14 Sodium 136 L (137-145) mmol/L Potassium 3.9 (3.6-5.0) mmol/L Chloride 97.7 L (98-107) mmol/L Carbon Dioxide 25 (22-30) mmol/L BUN 32 H (7-17) mg/dL Creatinine 5.4 H (0.7-1.2) mg/dL Glucose 153 H 171 H (65-100) mg/dL Calcium 8.3 L (8.4-10.2) mg/dL - Telemetry EKG Rhythm: Sinus Rhythm
[2017-03-31] MEDS: SODIUM BICARBONATE PO SCH ×3 (10:44→21:32)
[2017-03-31] MEDS: PROTONIX PO SCH (10:44)
[2017-03-31] MEDS ORDERED: NACL 0.9 (PRIMING MACHINE ONLY DIALYSIS) MC ONE (15:48)
[2017-03-31] MEDS: HEPARIN IV PRN (16:10)
[2017-03-31] MEDS: HEPARIN SUB-Q SCH ×2 (17:08→21:35)
[2017-03-31] MEDS: TRENTAL PO SCH ×2 (17:08→21:34)
--- NOTE | 2017-03-31 17:10 | Progress Note ---
Assessment and Plan - Patient Problems (1) Volume overload Current Visit: Yes Status: Acute Qualifiers: Hypervolemia type: H Plan to address problem: Ultrafiltration with HD Assess need for HD on daily basis (2) ESRD (end stage renal disease) on dialysis Current Visit: Yes Status: Acute Plan to address problem: Hemodialysis today for ultrafiltration and clearance Assess need for HD on daily basis Renally dose medications Status post Right IJ Perm Catheter placement on 03/30/[address] Whatley Obtain daily weight Strict intake and output Renal plan discussed with Dr Dixon Continue supportive therapy (3) Acute congestive heart failure Current Visit: No Status: Acute Qualifiers: Congestive heart failure type: systolic Qualified Code(s): I50.21 - Acute systolic (congestive) heart failure Plan to address problem: Cardiology on board Ultrafiltration with HD Unable to perform left heart catheterization secondary to lack of access, continue conservative management, will be discharged home on anti-ischemic medication with plan for coronary CT angiogram as an outpatient per cardiology (4) Diabetes mellitus Current Visit: Yes Status: Acute Qualifiers: Diabetes mellitus type: D Diabetes mellitus complication status: D Diabetes mellitus complication detail: D Diabetic retinopathy severity: D Proliferative retinopathy type: P Diabetes mellitus macular edema: D Diabetes mellitus [employer] insulin use: D Laterality: L Chronic kidney disease stage: C Plan to address problem: On insulin As per primary team Subjective Date of service: 03/31/17 Principal diagnosis: severe renal failure Interval history: Patient returned to her room from undergoing HD today, no acute distress, doesn' t speak Korean. also at bedside Objective - Vital Signs Vital signs: Vital Signs - 12hr 03/31/17 03/31/17 03/31/17 06:11 06:12 12:30 Temperature 98.5 F Pulse Rate 71 71 73 Respiratory 16 Rate Blood Pressure 150/42 150/42 170/86 03/31/17 03/31/17 03/31/17 12:45 13:00 13:15 Temperature Pulse Rate 72 67 71 Respiratory Rate Blood Pressure 179/78 150/72 59/31 03/31/17 03/31/17 03/31/17 13:30 13:45 14:00 Temperature Pulse Rate 67 66 66 Respiratory Rate Blood Pressure 122/60 146/71 191/82 03/31/17 03/31/17 03/31/17 14:15 14:30 14:45 Temperature Pulse Rate 67 69 69 Respiratory Rate Blood Pressure 106/57 65/46 115/50 03/31/17 03/31/17 03/31/17 15:00 15:15 15:30 Temperature 98.0 F Pulse Rate 69 68 70 Respiratory 16 Rate Blood Pressure 122/62 98/46 140/79 - General Appearance General appearance: well-nourished (no acute distress) EENT: ATNC Neck: no JVD Respiratory: Present: Other (Lung sounds decreased bilaterally, unlabored on room air) Cardiology: regular, other (ACCESS: Right Perm Catheter intact) Gastrointestinal: normoactive bowel sounds, no tenderness Integumentary: warm and dry Neurologic: other (awake, follows commands, doesn't speak Korean) Musculoskeletal: other (1+ edema to both lower extremities) - Lab 03/31/17 09:14 03/31/17 09:14 Most recent lab results Calcium 8.3 mg/dL (8.4-10.2) L 03/31/17 09:14 Phosphorus 3.00 mg/dL (2.5-4.5) 03/28/17 06:43 Urine Creatinine 28.0 mg/dL (0.1-20.0) H 03/20/17 Unknown Urine Sodium 112 mEq/L 03/20/17 Unknown Urine Total Protein 7 mg/dL (5-11.8) 03/20/17 Unknown
[2017-03-31] MEDS: LOPRESSOR PO SCH ×2 (18:00→21:34)
[2017-03-31] MEDS: ASPIRIN PO SCH (18:01)
[2017-03-31] MEDS: PRAVACHOL PO SCH (21:35)
[2017-04-01] MEDS: NITRO-BID 2% TP SCH ×4 (06:55→17:31)
[2017-04-01] MEDS: APRESOLINE PO SCH ×3 (06:55→23:00)
[2017-04-01] MEDS: PROTONIX PO SCH (10:03)
[2017-04-01] MEDS: TRENTAL PO SCH ×3 (10:03→21:20)
[2017-04-01] MEDS: ASPIRIN PO SCH (10:04)
[2017-04-01] MEDS: SODIUM BICARBONATE PO SCH ×3 (10:04→21:20)
[2017-04-01] MEDS: HEPARIN SUB-Q SCH ×2 (10:10→22:55)
[2017-04-01] MEDS: LOPRESSOR PO SCH ×2 (10:15→22:50)
--- NOTE | 2017-04-01 10:32 | Progress Note ---
Assessment and Plan 1. End stage renal disease. 2. Ischemic cardiomyopathy LV ejection fraction 40-45% 3. Type 2 diabetes mellitus 4. Essential hypertension 5. Hyperlipidemia Plan. Cardiac-rios stable left heart cath unsuccessful due to lack of access. Patient to be treated conservatively post dialysis will be discharged home on anti-ischemic medication with a plan for coronary CT angiogram as an outpatient Subjective Date of service: 04/01/17 Principal diagnosis: severe renal failure Interval history: No cardiac symptoms Objective Vital Signs Temp Pulse Resp BP Pulse Ox 04/01/17 06:55 71 127/71 04/01/17 05:28 99.0 F 71 18 127/41 97 04/01/17 00:24 98.6 F 71 23 125/50 98 03/31/17 22:00 81 03/31/17 21:34 82 126/47 03/31/17 21:33 82 126/47 03/31/17 19:43 98.3 F 82 17 126/27 99 03/31/17 18:05 77 162/52 03/31/17 18:00 77 162/52 03/31/17 16:41 97.5 F L 77 20 162/52 99 03/31/17 15:30 98.0 F 70 16 140/79 03/31/17 15:15 68 98/46 03/31/17 15:00 69 122/62 03/31/17 14:45 69 115/50 03/31/17 14:30 69 65/46 03/31/17 14:15 67 106/57 03/31/17 14:00 66 191/82 03/31/17 13:45 66 146/71 03/31/17 13:30 67 122/60 03/31/17 13:15 71 59/31 03/31/17 13:00 67 150/72 03/31/17 12:45 72 179/78 03/31/17 12:30 98.5 F 73 16 170/86 03/31/17 12:14 72 157/77 100 - Physical Examination General: Appears Well, No Apparent Distress, Other (obese) HEENT: Positive: PERRL, Normocephaly, Mucus Membranes Moist Neck: Positive: neck supple, trachea midline. Negative: JVD/HJR Cardiac: Positive: Regular Rate, S1/S2, PMI, Dilated, Laterally Displaced Lungs: Positive: clear to auscultation, No Wheeze, Rales, Rhonchi Neuro: Positive: Grossly Intact Abdomen: Positive: Unremarkable, Soft Extremities: Absent: edema - Telemetry EKG Rhythm: Sinus Rhythm
--- NOTE | 2017-04-01 12:20 | Progress Note ---
Assessment and Plan Assessment and plan: Acute on chronic renal failure stage IV; on hemodialysis per nephrology, Case management to set up outpatient hemodialysis chair, multiple social issues permcath placed 03/30/17 Non-ST elevation MD; continue aspirin and beta blockers BARBER inhibitor nitrates and statins, Left heart cath canceled , due to absence of palpable arterial pulses, bilateral femoral, R radial and R brachial. No reversible ischemia , fixed defect on MPI 07/2016, ejection fraction 40-45% on echo Type 2 diabetes mellitus; blood sugars moderate control Closely monitor blood sugars, Accu-Cheks sliding scale coverage, consistent carb diet Acute on chronic systolic congestive heart failure Ejection fraction 40-45%, continue anti-failure medications -Dyslipidemia; continue current lipid-lowering medications Hypertension; moderate control, continue current antihypertensives and when necessary medications Hypoglycemia episodes. Discontinue Glipizide. A1C 5.4 Morbid obesity; advised dietary modification and exercise as tolerated and weight reduction when medically stable Moderate protein calorie malnutrition; supportive care, nutrition supplements DVT prophylaxis with heparin Permcath placed 03/30/17 Discharge planning per Case management, Patient is medically stable for discharge, after outpatient dialysis arranged. Discussed with patient and daughter at bedside. History Interval history: No chest pain, no SOB, Hypoglycemia episodes Still awaiting dialysis arrangements Hospitalist Physical - Physical exam Narrative exam: Gen:Not in acute distress, lying in bed, Obese HEENT: Normocephalic, atraumatic Neck:Supple, No JVD, Permcath on right Lungs: Clear to auscultation bilaterally, no rhonchi, No crackles, Heart:S1 and S2 reg, no murmurs, rubs or gallop Abdomen: soft, Non tender, Non distended, normal bowel sounds Extremity:No tenderness, no edema, no clubbing, no cyanosis Neuro:Awake,alert,oriented x 3, non focal, moves all extremities - Constitutional Vitals: Temp Pulse Resp BP Pulse Ox 99.0 F 71 18 127/71 97 04/01/17 05:28 04/01/17 06:55 04/01/17 05:28 04/01/17 06:55 04/01/17 05:28 General appearance: Present: no acute distress, well-nourished, obese Results - Labs CBC & Chem 7: 03/31/17 09:14 03/31/17 09:14 Labs: Laboratory Last Values WBC 8.4 K/mm3 (4.5-11.0) 03/31/17 09:14 RBC 3.20 M/mm3 (3.65-5.03) L 03/31/17 09:14 Hgb 9.3 gm/dl (10.1-14.3) L 03/31/17 09:14 Hct 28.1 % (30.3-42.9) L 03/31/17 09:14 MCV 88 fl (79-97) 03/31/17 09:14 MCH 29 pg (28-32) 03/31/17 09:14 MCHC 33 % (30-34) 03/31/17 09:14 RDW 13.7 % (13.2-15.2) 03/31/17 09:14 Plt Count 210 K/mm3 (140-440) 03/31/17 09:14 Lymph % (Auto) 18.2 % (13.4-35.0) 03/29/17 06:54 [place] % (Auto) 8.5 % (0.0-7.3) H 03/29/17 06:54 Eos % (Auto) 3.4 % (0.0-4.3) 03/29/17 06:54 Baso % (Auto) 0.7 % (0.0-1.8) 03/29/17 06:54 Lymph # 1.3 K/mm3 (1.2-5.4) 03/29/17 06:54 [place] # 0.6 K/mm3 (0.0-0.8) 03/29/17 06:54 Eos # 0.2 K/mm3 (0.0-0.4) 03/29/17 06:54 Baso # 0.1 K/mm3 (0.0-0.1) 03/29/17 06:54 Seg Neutrophils % 69.2 % (40.0-70.0) 03/29/17 06:54 Seg Neutrophils # 5.0 K/mm3 (1.8-7.7) 03/29/17 06:54 PT 13.8 Sec. (12.2-14.9) 03/19/17 04:23 INR 1.01 (0.87-1.13) 03/19/17 04:23 APTT 36.0 Sec. (24.2-36.6) 03/19/17 04:23 Heparin Anti-Xa Level 0.68 U.I./ml (0.3-0.7) 03/19/17 11:55 Sodium 136 mmol/L (137-145) L 03/31/17 09:14 Potassium 3.9 mmol/L (3.6-5.0) 03/31/17 09:14 Chloride 97.7 mmol/L (98-107) L 03/31/17 09:14 Carbon Dioxide 25 mmol/L (22-30) 03/31/17 09:14 Anion Gap 17 mmol/L 03/31/17 09:14 BUN 32 mg/dL (7-17) H 03/31/17 09:14 Creatinine 5.4 mg/dL (0.7-1.2) H 03/31/17 09:14 Estimated GFR 8 ml/min 03/31/17 09:14 BUN/Creatinine Ratio 6 % 03/31/17 09:14 Glucose 171 mg/dL (65-100) H 03/31/17 09:14 POC Glucose 228 (70-105) H 04/01/17 11:02 Hemoglobin A1c 5.4 % (4-6) 03/31/17 09:14 Calcium 8.3 mg/dL (8.4-10.2) L 03/31/17 09:14 Phosphorus 3.00 mg/dL (2.5-4.5) 03/28/17 06:43 Total Bilirubin 0.20 mg/dL (0.1-1.2) 03/20/17 06:13 AST 18 units/L (5-40) 03/20/17 06:13 ALT 15 units/L (7-56) 03/20/17 06:13 Alkaline Phosphatase 86 units/L (35-129) 03/20/17 06:13 Total Creatine Kinase 180 units/L (30-135) H 03/19/17 04:23 CK-MB (CK-2) 10.5 ng/mL (0.0-4.0) H 03/19/17 04:23 CK-MB (CK-2) Rel Index 5.8 (0-4) H 03/19/17 04:23 Troponin T 0.141 ng/mL (0.00-0.029) H* 03/19/17 04:23 NT-Pro-B Natriuret Pep 86413 pg/mL (0-900) H 03/18/17 19:43 Serum Total Protein 5.1 g/dL (6.1-8.1) L 03/19/17 14:46 Total Protein 4.6 g/dL (6.3-8.2) L 03/20/17 06:13 Albumin 2.3 g/dL (3.9-5) L 03/20/17 06:13 Albumin/Globulin Ratio 1.0 % 03/20/17 06:13 Rhwpu-7-Brvudtwtx 0.4 g/dL (0.2-0.3) H 03/19/17 14:46 Yrgnr-0-Seuhgaqcf 1.0 g/dL (0.5-0.9) H 03/19/17 14:46 Beta Globulins 0.4 g/dL (0.2-0.5) 03/19/17 14:46 Gamma Globulins 0.7 g/dL (0.8-1.7) L 03/19/17 14:46 Abnorm Protein Band 1 see below 03/19/17 14:46 PEP Interpretation see below H 03/19/17 14:46 Triglycerides 195 mg/dL (2-149) H 03/18/17 17:05 Cholesterol 189 mg/dL (50-199) 03/18/17 17:05 LDL Cholesterol Direct 62 mg/dL (50-130) 03/18/17 17:05 HDL Cholesterol 88 mg/dL (40-59) H 03/18/17 17:05 Cholesterol/HDL Ratio 2.14 % 03/18/17 17:05 Urine Eosinophils 1% (None Seen) 03/20/17 Unknown Urine Creatinine 28.0 mg/dL (0.1-20.0) H 03/20/17 Unknown Protein/Creatinin Ratio 0.25 03/20/17 Unknown Urine Sodium 112 mEq/L 03/20/17 Unknown Urine Total Protein 7 mg/dL (5-11.8) 03/20/17 Unknown LISS Screen Negative (Negative) 03/19/17 14:46 Double Strand DNA Ab <1 IU/mL (<=4) 03/19/17 14:46 Glomerular Base Mem IgG <1.0 AI (<1.0) 03/19/17 14:46 Complement C3 123 mg/dL (90-180) 03/19/17 14:46 Complement C4 31 mg/dL (16-47) 03/19/17 14:46 Tot Complement (CH50) >60 U/mL (31-60) H 03/19/17 14:46 Hepatitis A IgM Ab Non-reactive (NonReactive) 03/19/17 20:35 Hep Bs Antigen Non-reactive (Negative) 03/19/17 20:35 Hep B Core IgM Ab Non-reactive (NonReactive) 03/19/17 20:35 Hepatitis C Antibody Non-reactive (NonReactive) 03/19/17 20:35 HIV 1&2 Antibody Rapid Non react (Non React) 03/19/17 14:46 HIV P24 Antigen Non react (Non React) 03/19/17 14:46 Anti-Streptolysin O Ab See scanned report 03/19/17 14:46 Miscellaneous Test Flexitest 1 H 03/21/17 05:55
--- NOTE | 2017-04-01 12:44 | Progress Note ---
Assessment and Plan - Patient Problems (1) Volume overload Current Visit: Yes Status: Acute Qualifiers: Hypervolemia type: H Plan to address problem: Ultrafiltration with HD Assess need for HD on daily basis (2) ESRD (end stage renal disease) on dialysis Current Visit: Yes Status: Acute Plan to address problem: Status post HD yesterday for UF and clearance, UF removed 2 liters No acute indication for HD today Assess need for HD on daily basis Renally dose medications Status post Right IJ Perm Catheter placement on 03/30/[address] Whatley Obtain daily weight Strict intake and output Renal plan discussed with Dr Dixon Continue supportive therapy (3) Acute congestive heart failure Current Visit: No Status: Acute Qualifiers: Congestive heart failure type: systolic Qualified Code(s): I50.21 - Acute systolic (congestive) heart failure Plan to address problem: Cardiology on board Ultrafiltration with HD Unable to perform left heart catheterization secondary to lack of access, continue conservative management, will be discharged home on anti-ischemic medication with plan for coronary CT angiogram as an outpatient per cardiology (4) Diabetes mellitus Current Visit: Yes Status: Acute Qualifiers: Diabetes mellitus type: D Diabetes mellitus complication status: D Diabetes mellitus complication detail: D Diabetic retinopathy severity: D Proliferative retinopathy type: P Diabetes mellitus macular edema: D Diabetes mellitus rat exterminator insulin use: D Laterality: L Chronic kidney disease stage: C Plan to address problem: On insulin As per primary team Subjective Date of service: 04/01/17 Principal diagnosis: severe renal failure Interval history: Patient in bed, no acute distress, doesn't speak [place]ian. No family at bedside at time of my examination Objective - Vital Signs Vital signs: Vital Signs - 12hr 04/01/17 04/01/17 04/01/17 05:28 06:55 08:09 Temperature 99.0 F 98.6 F Pulse Rate 71 71 68 Respiratory 18 12 Rate Blood Pressure 127/41 127/71 125/40 O2 Sat by Pulse 97 99 Oximetry 04/01/17 10:53 Temperature 97.8 F Pulse Rate 72 Respiratory 14 Rate Blood Pressure 132/40 O2 Sat by Pulse 99 Oximetry - General Appearance General appearance: well-developed (no acute distress) EENT: ATNC Neck: no JVD Respiratory: Present: Other (Lung sounds decreased bilaterally, unlabored) Cardiology: regular, S1S2, other (ACCESS: Right Perm Catheter intact) Gastrointestinal: normoactive bowel sounds, no tenderness Integumentary: warm and dry (bruising to left arm) Neurologic: other (follows simple commands, doesn't speak mongolian) Musculoskeletal: other (1+ edema to both lower extremities) Psychiatric: mood/affect appropriate - Lab 03/31/17 09:14 03/31/17 09:14 Most recent lab results Calcium 8.3 mg/dL (8.4-10.2) L 03/31/17 09:14 Phosphorus 3.00 mg/dL (2.5-4.5) 03/28/17 06:43 Urine Creatinine 28.0 mg/dL (0.1-20.0) H 03/20/17 Unknown Urine Sodium 112 mEq/L 03/20/17 Unknown Urine Total Protein 7 mg/dL (5-11.8) 03/20/17 Unknown
[2017-04-01] MEDS: PRAVACHOL PO SCH (22:50)
[2017-04-02] MEDS: NITRO-BID 2% TP SCH ×3 (06:07→19:10)
[2017-04-02] MEDS: APRESOLINE PO SCH ×3 (06:08→21:24)
--- NOTE | 2017-04-02 09:58 | Progress Note ---
Assessment and Plan Assessment and plan: Acute on chronic renal failure stage IV; on hemodialysis per nephrology, Case management to set up outpatient hemodialysis chair, multiple social issues permcath placed 03/30/17 Non-ST elevation ID; continue aspirin and beta blockers BARBER inhibitor nitrates and statins, Left heart cath canceled , due to absence of palpable arterial pulses, bilateral femoral, R radial and R brachial. No reversible ischemia , fixed defect on MPI 07/2016, ejection fraction 40-45% on echo Type 2 diabetes mellitus; blood sugars moderate control Closely monitor blood sugars, Accu-Cheks sliding scale coverage, consistent carb diet Acute on chronic systolic congestive heart failure Ejection fraction 40-45%, continue anti-failure medications -Dyslipidemia; continue current lipid-lowering medications Hypertension; moderate control, continue current antihypertensives and when necessary medications Hypoglycemia episodes. Discontinue Glipizide. A1C 5.4. On Insulin Morbid obesity; advised dietary modification and exercise as tolerated and weight reduction when medically stable Moderate protein calorie malnutrition; supportive care, nutrition supplements DVT prophylaxis with heparin Permcath placed 03/30/17 Discharge planning per Case management, Patient is medically stable for discharge, after outpatient dialysis arranged. Discussed with patient and daughter at bedside. History Interval history: Hypoglycemia episodes few days ago Still awaiting dialysis arrangements Hospitalist Physical - Physical exam Narrative exam: Gen:Not in acute distress, lying in bed, Obese HEENT: Normocephalic, atraumatic Neck:Supple, No JVD, Permcath on right Lungs: Clear to auscultation bilaterally, no rhonchi, No crackles, Heart:S1 and S2 reg, no murmurs, rubs or gallop Abdomen: soft, Non tender, Non distended, normal bowel sounds Extremity:No tenderness, no edema, no clubbing, no cyanosis Neuro:Awake,alert,oriented x 3, non focal, moves all extremities - Constitutional Vitals: Temp Pulse Resp BP Pulse Ox 97.8 F 80 17 131/49 99 04/02/17 08:35 04/02/17 08:35 04/02/17 08:35 04/02/17 08:35 04/02/17 08:35 General appearance: Present: no acute distress, well-nourished, obese Results - Labs CBC & Chem 7: 03/31/17 09:14 04/02/17 11:10 Labs: Laboratory Last Values WBC 8.4 K/mm3 (4.5-11.0) 03/31/17 09:14 RBC 3.20 M/mm3 (3.65-5.03) L 03/31/17 09:14 Hgb 9.3 gm/dl (10.1-14.3) L 03/31/17 09:14 Hct 28.1 % (30.3-42.9) L 03/31/17 09:14 MCV 88 fl (79-97) 03/31/17 09:14 MCH 29 pg (28-32) 03/31/17 09:14 MCHC 33 % (30-34) 03/31/17 09:14 RDW 13.7 % (13.2-15.2) 03/31/17 09:14 Plt Count 210 K/mm3 (140-440) 03/31/17 09:14 Lymph % (Auto) 18.2 % (13.4-35.0) 03/29/17 06:54 [place] % (Auto) 8.5 % (0.0-7.3) H 03/29/17 06:54 Eos % (Auto) 3.4 % (0.0-4.3) 03/29/17 06:54 Baso % (Auto) 0.7 % (0.0-1.8) 03/29/17 06:54 Lymph # 1.3 K/mm3 (1.2-5.4) 03/29/17 06:54 [place] # 0.6 K/mm3 (0.0-0.8) 03/29/17 06:54 Eos # 0.2 K/mm3 (0.0-0.4) 03/29/17 06:54 Baso # 0.1 K/mm3 (0.0-0.1) 03/29/17 06:54 Seg Neutrophils % 69.2 % (40.0-70.0) 03/29/17 06:54 Seg Neutrophils # 5.0 K/mm3 (1.8-7.7) 03/29/17 06:54 PT 13.8 Sec. (12.2-14.9) 03/19/17 04:23 INR 1.01 (0.87-1.13) 03/19/17 04:23 APTT 36.0 Sec. (24.2-36.6) 03/19/17 04:23 Heparin Anti-Xa Level 0.68 U.I./ml (0.3-0.7) 03/19/17 11:55 Sodium 136 mmol/L (137-145) L 03/31/17 09:14 Potassium 3.9 mmol/L (3.6-5.0) 03/31/17 09:14 Chloride 97.7 mmol/L (98-107) L 03/31/17 09:14 Carbon Dioxide 25 mmol/L (22-30) 03/31/17 09:14 Anion Gap 17 mmol/L 03/31/17 09:14 BUN 32 mg/dL (7-17) H 03/31/17 09:14 Creatinine 5.4 mg/dL (0.7-1.2) H 03/31/17 09:14 Estimated GFR 8 ml/min 03/31/17 09:14 BUN/Creatinine Ratio 6 % 03/31/17 09:14 Glucose 171 mg/dL (65-100) H 03/31/17 09:14 POC Glucose 201 (70-105) H 04/01/17 21:06 Hemoglobin A1c 5.4 % (4-6) 03/31/17 09:14 Calcium 8.3 mg/dL (8.4-10.2) L 03/31/17 09:14 Phosphorus 3.00 mg/dL (2.5-4.5) 03/28/17 06:43 Total Bilirubin 0.20 mg/dL (0.1-1.2) 03/20/17 06:13 AST 18 units/L (5-40) 03/20/17 06:13 ALT 15 units/L (7-56) 03/20/17 06:13 Alkaline Phosphatase 86 units/L (35-129) 03/20/17 06:13 Total Creatine Kinase 180 units/L (30-135) H 03/19/17 04:23 CK-MB (CK-2) 10.5 ng/mL (0.0-4.0) H 03/19/17 04:23 CK-MB (CK-2) Rel Index 5.8 (0-4) H 03/19/17 04:23 Troponin T 0.141 ng/mL (0.00-0.029) H* 03/19/17 04:23 NT-Pro-B Natriuret Pep 25826 pg/mL (0-900) H 03/18/17 19:43 Serum Total Protein 5.1 g/dL (6.1-8.1) L 03/19/17 14:46 Total Protein 4.6 g/dL (6.3-8.2) L 03/20/17 06:13 Albumin 2.3 g/dL (3.9-5) L 03/20/17 06:13 Albumin/Globulin Ratio 1.0 % 03/20/17 06:13 Mwtzc-8-Cezbkebfb 0.4 g/dL (0.2-0.3) H 03/19/17 14:46 Ylwyz-1-Tebwwhypi 1.0 g/dL (0.5-0.9) H 03/19/17 14:46 Beta Globulins 0.4 g/dL (0.2-0.5) 03/19/17 14:46 Gamma Globulins 0.7 g/dL (0.8-1.7) L 03/19/17 14:46 Abnorm Protein Band 1 see below 03/19/17 14:46 PEP Interpretation see below H 03/19/17 14:46 Triglycerides 195 mg/dL (2-149) H 03/18/17 17:05 Cholesterol 189 mg/dL (50-199) 03/18/17 17:05 LDL Cholesterol Direct 62 mg/dL (50-130) 03/18/17 17:05 HDL Cholesterol 88 mg/dL (40-59) H 03/18/17 17:05 Cholesterol/HDL Ratio 2.14 % 03/18/17 17:05 Urine Eosinophils 1% (None Seen) 03/20/17 Unknown Urine Creatinine 28.0 mg/dL (0.1-20.0) H 03/20/17 Unknown Protein/Creatinin Ratio 0.25 03/20/17 Unknown Urine Sodium 112 mEq/L 03/20/17 Unknown Urine Total Protein 7 mg/dL (5-11.8) 03/20/17 Unknown LISS Screen Negative (Negative) 03/19/17 14:46 Double Strand DNA Ab <1 IU/mL (<=4) 03/19/17 14:46 Glomerular Base Mem IgG <1.0 AI (<1.0) 03/19/17 14:46 Complement C3 123 mg/dL (90-180) 03/19/17 14:46 Complement C4 31 mg/dL (16-47) 03/19/17 14:46 Tot Complement (CH50) >60 U/mL (31-60) H 03/19/17 14:46 Hepatitis A IgM Ab Non-reactive (NonReactive) 03/19/17 20:35 Hep Bs Antigen Non-reactive (Negative) 03/19/17 20:35 Hep B Core IgM Ab Non-reactive (NonReactive) 03/19/17 20:35 Hepatitis C Antibody Non-reactive (NonReactive) 03/19/17 20:35 HIV 1&2 Antibody Rapid Non react (Non React) 03/19/17 14:46 HIV P24 Antigen Non react (Non React) 03/19/17 14:46 Anti-Streptolysin O Ab See scanned report 03/19/17 14:46 Miscellaneous Test Flexitest 1 H 03/21/17 05:55
[2017-04-02] MEDS: ASPIRIN PO SCH (11:55)
[2017-04-02] MEDS: TRENTAL PO SCH ×3 (11:56→21:24)
[2017-04-02] MEDS: PROTONIX PO SCH (11:56)
--- NOTE | 2017-04-02 11:56 | Progress Note ---
Assessment and Plan Volume overload Chronic renal failure initiated on dialysis Pulmonary edema Bilateral Pleural effusions Chest pain Cardiac cath procedure aborted due to absence of palpable arterial pulses, bilateral femoral, R radial and R brachial. fixed anteroapical defect, no reversible ischemia on MPI 07/2016 echocardiogram reports a mild decreased systolic function, EF 40-45% Hx of Anemia Diabetes Hypertension Hyperlipidemia Elevated troponin, chronic Recommendations: Conservative cardiac management in the absence of chest pain or angina. Continue medical therapy for underlying coronary artery disease to include aspirin, long-acting nitrates, beta blockers and statin therapy as tolerated. Dialysis for fluid management. Subjective Date of service: 04/02/17 Principal diagnosis: severe renal failure Interval history: No complaints. Objective Vital Signs Temp Pulse Resp BP BP Pulse Ox 04/02/17 08:35 97.8 F 80 17 131/49 99 04/02/17 06:38 98.4 F 75 20 158/51 98 04/02/17 06:08 72 143/43 04/02/17 06:07 72 143/43 04/01/17 23:00 71 161/59 04/01/17 22:50 71 161/59 04/01/17 22:00 78 04/01/17 19:54 98.4 F 75 20 157/50 94 04/01/17 16:15 98.4 F 71 12 115/30 99 04/01/17 13:24 125/55 - Physical Examination General: No Apparent Distress, Other (obese) HEENT: Positive: PERRL Cardiac: Positive: Reg Rate and Rhythm Lungs: Positive: Decreased Breath Sounds
[2017-04-02] MEDS: HEPARIN SUB-Q SCH ×2 (12:06→21:23)
[2017-04-02] MEDS: SODIUM BICARBONATE PO SCH ×3 (12:06→21:24)
[2017-04-02 12:41] LABS: Calcium 7.8 mg/dL (8.4-10.2); Potassium 4.4 mmol/L (3.6-5.0)
[2017-04-02] MEDS: LOPRESSOR PO SCH ×2 (13:30→21:24)
--- NOTE | 2017-04-02 18:01 | Progress Note ---
Assessment and Plan (1) Volume overload Current Visit: Yes Status: Acute Qualifiers: Hypervolemia type: H Plan to address problem: UF with HD tomorrow (2) ESRD on HD Current Visit: No Status: Acute Plan to address problem: no indication for HD today, HD ordered for tomorrow. s/p Left IJ TDC placement case management for outpatient dialysis placement at [facility] [facility]. GN-work-up is negative Renally dose medications Obtain daily weights Monitor I/O's (3) Acute hyperkalemia Current Visit: Yes Status: Acute Plan to address problem: Resolved (4) Acute congestive heart failure Current Visit: No Status: Acute Qualifiers: Congestive heart failure type: systolic Qualified Code(s): I50.21 - Acute systolic (congestive) heart failure Plan to address problem: per cardiology (5) Diabetes mellitus Current Visit: Yes Status: Acute Qualifiers: Diabetes mellitus type: D Diabetes mellitus complication status: D Diabetes mellitus complication detail: D Diabetic retinopathy severity: D Proliferative retinopathy type: P Diabetes mellitus macular edema: D Diabetes mellitus assisted insulin use: D Laterality: L Chronic kidney disease stage: C Plan to address problem: As per primary team (6) Hypertension Current Visit: Yes Status: Acute Qualifiers: Hypertension type: H Plan to address problem: Continue on anti-hypertensive agents. Subjective Date of service: 04/02/17 Principal diagnosis: severe renal failure Interval history: Denies CP/SHOB. Objective - Exam Narrative Exam: Physical Exam: General appearance: well-nourished EENT: ATNC, PERRL, mucous membranes moist Neck: no JVD, no carotid bruit Respiratory: Present: Decreased Breath Sounds Gastrointestinal: normoactive bowel sounds Integumentary: no rash, warm and dry Neurologic: no focal deficit, no asterixis, alert and oriented x3 Musculoskeletal: 1-2+ BLE edema Psychiatric: mood/affect appropriate, cooperative - Vital Signs Vital signs: Vital Signs - 12hr 04/02/17 04/02/17 04/02/17 06:07 06:08 06:38 Temperature 98.4 F Pulse Rate 72 72 75 Pulse Rate [ From Monitor] Pulse Rate [ Right Radial] Respiratory 20 Rate Blood Pressure 143/43 143/43 158/51 Blood Pressure [Left] O2 Sat by Pulse 98 Oximetry 04/02/17 04/02/17 04/02/17 08:35 12:10 12:35 Temperature 97.8 F 98.8 F Pulse Rate 80 69 Pulse Rate [ From Monitor] Pulse Rate [ Right Radial] Respiratory 17 18 Rate Blood Pressure 125/47 Blood Pressure 131/49 125/47 [Left] O2 Sat by Pulse 99 99 Oximetry 04/02/17 04/02/17 04/02/17 13:01 13:30 16:28 Temperature 98.0 F Pulse Rate 72 69 Pulse Rate [ 69 From Monitor] Pulse Rate [ 69 Right Radial] Respiratory 20 18 Rate Blood Pressure 125/47 Blood Pressure 149/45 [Left] O2 Sat by Pulse 99 98 Oximetry 04/02/17 16:59 Temperature Pulse Rate 69 Pulse Rate [ From Monitor] Pulse Rate [ Right Radial] Respiratory Rate Blood Pressure 149/45 Blood Pressure [Left] O2 Sat by Pulse Oximetry - Lab 03/31/17 09:14 04/02/17 11:10 Most recent lab results Calcium 7.8 mg/dL (8.4-10.2) L 04/02/17 11:10 Phosphorus 3.00 mg/dL (2.5-4.5) 03/28/17 06:43 Urine Creatinine 28.0 mg/dL (0.1-20.0) H 03/20/17 Unknown Urine Sodium 112 mEq/L 03/20/17 Unknown Urine Total Protein 7 mg/dL (5-11.8) 03/20/17 Unknown
[2017-04-02] MEDS ORDERED: NACL 0.9% 100 ML IV PRN (18:02)
[2017-04-02] MEDS: PRAVACHOL PO SCH (21:25)
[2017-04-03] MEDS: NITRO-BID 2% TP SCH ×4 (05:47→19:00)
[2017-04-03] MEDS: APRESOLINE PO SCH ×3 (05:47→21:46)
[2017-04-03] MEDS: TRENTAL PO SCH ×3 (08:00→21:46)
[2017-04-03] MEDS: SODIUM BICARBONATE PO SCH ×3 (08:00→21:47)
--- NOTE | 2017-04-03 11:02 | Progress Note ---
Assessment and Plan (1) Volume overload Current Visit: Yes Status: Acute Qualifiers: Hypervolemia type: H Plan to address problem: UF with HD (2) ESRD on HD Current Visit: No Status: Acute Plan to address problem: HD today for clearance and volume removal case management for outpt dialysis placement GN-work-up is negative Renally dose medications Obtain daily weights Monitor I/O's (3) Acute hyperkalemia Current Visit: Yes Status: Acute Plan to address problem: Resolved (4) Acute congestive heart failure Current Visit: No Status: Acute Qualifiers: Congestive heart failure type: systolic Qualified Code(s): I50.21 - Acute systolic (congestive) heart failure Plan to address problem: per cardiology (5) Diabetes mellitus Current Visit: Yes Status: Acute Qualifiers: Diabetes mellitus type: D Diabetes mellitus complication status: D Diabetes mellitus complication detail: D Diabetic retinopathy severity: D Proliferative retinopathy type: P Diabetes mellitus macular edema: D Diabetes mellitus mcfp insulin use: D Laterality: L Chronic kidney disease stage: C Plan to address problem: As per primary team (6) Hypertension Current Visit: Yes Status: Acute Qualifiers: Hypertension type: H Plan to address problem: Continue on anti-hypertensive agents. Subjective Date of service: 04/03/17 Principal diagnosis: severe renal failure Interval history: denies overnight events Objective - Vital Signs Vital signs: Vital Signs - 12hr 04/03/17 04/03/17 04/03/17 01:59 03:12 05:43 Temperature 98.3 F 97.8 F Pulse Rate 73 74 66 Respiratory 17 20 Rate Blood Pressure 154/51 Blood Pressure 149/51 [Left] O2 Sat by Pulse 100 100 98 Oximetry 04/03/17 04/03/17 04/03/17 05:47 06:19 08:20 Temperature 97.8 F 98.0 F Pulse Rate 66 71 Respiratory 20 18 Rate Blood Pressure 154/51 Blood Pressure 154/51 163/63 [Left] O2 Sat by Pulse 98 96 Oximetry - General Appearance General appearance: well-developed, well-nourished, obese EENT: ATNC, PERRL, mucous membranes moist Neck: no JVD, no carotid bruit Respiratory: Present: Clear to Ascultation. Absent: Rales, Ronchi Cardiology: regular, S1S2 Gastrointestinal: normoactive bowel sounds, no tenderness, no distended, no masses Integumentary: no rash, warm and dry Neurologic: no focal deficit, no asterixis, alert and oriented x3 Musculoskeletal: other (1-2 + pitting edema in BLE) Psychiatric: mood/affect appropriate, cooperative - Lab 03/31/17 09:14 04/02/17 11:10 Most recent lab results Calcium 7.8 mg/dL (8.4-10.2) L 04/02/17 11:10 Phosphorus 3.00 mg/dL (2.5-4.5) 03/28/17 06:43 Urine Creatinine 28.0 mg/dL (0.1-20.0) H 03/20/17 Unknown Urine Sodium 112 mEq/L 03/20/17 Unknown Urine Total Protein 7 mg/dL (5-11.8) 03/20/17 Unknown
--- NOTE | 2017-04-03 13:18 | Progress Note ---
Assessment and Plan Volume overload Chronic renal failure initiated on dialysis Pulmonary edema Bilateral Pleural effusions Chest pain Cardiac cath procedure aborted due to absence of palpable arterial pulses, bilateral femoral, R radial and R brachial. fixed anteroapical defect, no reversible ischemia on MPI 07/2016 echocardiogram reports a mild decreased systolic function, EF 40-45% Hx of Anemia Diabetes Hypertension Hyperlipidemia Elevated troponin, chronic Recommendations: Conservative cardiac management in the absence of chest pain or angina. Continue medical therapy for underlying coronary artery disease to include aspirin, long-acting nitrates, beta blockers and statin therapy as tolerated. Dialysis for fluid management. Subjective Date of service: 04/03/17 Principal diagnosis: severe renal failure Interval history: No complaints. Objective Vital Signs Temp Pulse Pulse Resp BP BP Pulse Ox 04/03/17 13:00 66 142/66 04/03/17 12:45 66 183/69 04/03/17 12:30 66 161/73 04/03/17 12:15 66 134/59 04/03/17 12:00 67 133/65 04/03/17 11:45 67 125/59 04/03/17 11:30 67 161/59 04/03/17 11:15 67 171/79 04/03/17 11:00 73 186/78 04/03/17 10:45 98.7 F 73 16 186/78 04/03/17 08:20 98.0 F 71 18 163/63 96 04/03/17 06:19 97.8 F 66 20 154/51 98 04/03/17 05:47 154/51 04/03/17 05:43 97.8 F 66 20 154/51 98 04/03/17 03:12 98.3 F 74 17 149/51 100 04/03/17 01:59 73 100 04/02/17 22:00 98.1 F 75 20 138/59 99 04/02/17 21:24 70 158/59 04/02/17 20:55 75 158/59 99 04/02/17 19:56 72 04/02/17 16:59 69 149/45 04/02/17 16:28 98.0 F 69 18 149/45 98 04/02/17 13:30 72 125/47 - Physical Examination General: No Apparent Distress, Other (obese) HEENT: Positive: PERRL Neck: Negative: JVD/HJR Cardiac: Positive: Reg Rate and Rhythm Neuro: Positive: Grossly Intact Extremities: Absent: edema
[2017-04-03] MEDS: LOPRESSOR PO SCH ×2 (13:40→21:46)
[2017-04-03] MEDS: HEPARIN SUB-Q SCH ×2 (13:40→21:47)
[2017-04-03] MEDS: ASPIRIN PO SCH (13:40)
[2017-04-03] MEDS: PROTONIX PO SCH (13:41)
--- NOTE | 2017-04-03 14:06 | Progress Note ---
Assessment and Plan Assessment and plan: Acute on chronic renal failure stage IV; on hemodialysis per nephrology, Case management to set up outpatient hemodialysis chair, multiple social issues permcath placed 03/30/17 Non-ST elevation [place]; continue aspirin and beta blockers BARBER inhibitor nitrates and statins, Left heart cath canceled , due to absence of palpable arterial pulses, bilateral femoral, R radial and R brachial. No reversible ischemia , fixed defect on MPI 07/2016, ejection fraction 40-45% on echo Type 2 diabetes mellitus; blood sugars moderate control Closely monitor blood sugars, Accu-Cheks sliding scale coverage, consistent carb diet Acute on chronic systolic congestive heart failure Ejection fraction 40-45%, continue anti-failure medications Dyslipidemia; continue current lipid-lowering medications Hypertension; moderate control, continue current antihypertensives and when necessary medications Hypoglycemia episodes. Discontinue Glipizide. hemoglobin A1C 5.4. On Insulin Morbid obesity; advised dietary modification and exercise as tolerated and weight reduction when medically stable Moderate protein calorie malnutrition; supportive care, nutrition supplements DVT prophylaxis with heparin Permcath placed 03/30/17 Discharge planning per Case management, Patient is medically stable for discharge, after outpatient dialysis arranged. History Interval history: No new issues overnight. Hospitalist Physical - Constitutional Vitals: Temp Pulse Resp BP Pulse Ox 98.7 F 67 16 160/71 96 04/03/17 10:45 04/03/17 13:15 04/03/17 10:45 04/03/17 13:15 04/03/17 08:20 General appearance: Present: no acute distress, well-nourished, obese - EENT Eyes: Present: PERRL, EOM intact ENT: hearing intact, clear oral mucosa, dentition normal - Neck Neck: Present: supple, normal ROM - Respiratory Respiratory effort: normal Respiratory: bilateral: CTA - Cardiovascular Rhythm: regular Heart Sounds: Present: S1 & S2. Absent: gallop, rub - Extremities Extremities: no ischemia, No edema, Full ROM - Abdominal General gastrointestinal: soft, non-tender, non-distended, normal bowel sounds - Integumentary Integumentary: Present: clear, warm, dry - Neurologic Neurologic: CNII-XII intact, moves all extremities Results - Labs CBC & Chem 7: 03/31/17 09:14 04/02/17 11:10 Labs: Laboratory Last Values WBC 8.4 K/mm3 (4.5-11.0) 03/31/17 09:14 RBC 3.20 M/mm3 (3.65-5.03) L 03/31/17 09:14 Hgb 9.3 gm/dl (10.1-14.3) L 03/31/17 09:14 Hct 28.1 % (30.3-42.9) L 03/31/17 09:14 MCV 88 fl (79-97) 03/31/17 09:14 MCH 29 pg (28-32) 03/31/17 09:14 MCHC 33 % (30-34) 03/31/17 09:14 RDW 13.7 % (13.2-15.2) 03/31/17 09:14 Plt Count 210 K/mm3 (140-440) 03/31/17 09:14 Lymph % (Auto) 18.2 % (13.4-35.0) 03/29/17 06:54 [place] % (Auto) 8.5 % (0.0-7.3) H 03/29/17 06:54 Eos % (Auto) 3.4 % (0.0-4.3) 03/29/17 06:54 Baso % (Auto) 0.7 % (0.0-1.8) 03/29/17 06:54 Lymph # 1.3 K/mm3 (1.2-5.4) 03/29/17 06:54 [place] # 0.6 K/mm3 (0.0-0.8) 03/29/17 06:54 Eos # 0.2 K/mm3 (0.0-0.4) 03/29/17 06:54 Baso # 0.1 K/mm3 (0.0-0.1) 03/29/17 06:54 Seg Neutrophils % 69.2 % (40.0-70.0) 03/29/17 06:54 Seg Neutrophils # 5.0 K/mm3 (1.8-7.7) 03/29/17 06:54 PT 13.8 Sec. (12.2-14.9) 03/19/17 04:23 INR 1.01 (0.87-1.13) 03/19/17 04:23 APTT 36.0 Sec. (24.2-36.6) 03/19/17 04:23 Heparin Anti-Xa Level 0.68 U.I./ml (0.3-0.7) 03/19/17 11:55 Sodium 134 mmol/L (137-145) L 04/02/17 11:10 Potassium 4.4 mmol/L (3.6-5.0) 04/02/17 11:10 Chloride 95.0 mmol/L (98-107) L 04/02/17 11:10 Carbon Dioxide 27 mmol/L (22-30) 04/02/17 11:10 Anion Gap 16 mmol/L 04/02/17 11:10 BUN 31 mg/dL (7-17) H 04/02/17 11:10 Creatinine 5.2 mg/dL (0.7-1.2) H 04/02/17 11:10 Estimated GFR 8 ml/min 04/02/17 11:10 BUN/Creatinine Ratio 6 % 04/02/17 11:10 Glucose 222 mg/dL (65-100) H 04/02/17 11:10 POC Glucose 212 (70-105) H 04/02/17 21:32 Hemoglobin A1c 5.4 % (4-6) 03/31/17 09:14 Calcium 7.8 mg/dL (8.4-10.2) L 04/02/17 11:10 Phosphorus 3.00 mg/dL (2.5-4.5) 03/28/17 06:43 Total Bilirubin 0.20 mg/dL (0.1-1.2) 03/20/17 06:13 AST 18 units/L (5-40) 03/20/17 06:13 ALT 15 units/L (7-56) 03/20/17 06:13 Alkaline Phosphatase 86 units/L (35-129) 03/20/17 06:13 Total Creatine Kinase 180 units/L (30-135) H 03/19/17 04:23 CK-MB (CK-2) 10.5 ng/mL (0.0-4.0) H 03/19/17 04:23 CK-MB (CK-2) Rel Index 5.8 (0-4) H 03/19/17 04:23 Troponin T 0.141 ng/mL (0.00-0.029) H* 03/19/17 04:23 NT-Pro-B Natriuret Pep 36036 pg/mL (0-900) H 03/18/17 19:43 Serum Total Protein 5.1 g/dL (6.1-8.1) L 03/19/17 14:46 Total Protein 4.6 g/dL (6.3-8.2) L 03/20/17 06:13 Albumin 2.3 g/dL (3.9-5) L 03/20/17 06:13 Albumin/Globulin Ratio 1.0 % 03/20/17 06:13 Mspek-5-Qrtibrivu 0.4 g/dL (0.2-0.3) H 03/19/17 14:46 Gzbng-5-Rfwlpygtv 1.0 g/dL (0.5-0.9) H 03/19/17 14:46 Beta Globulins 0.4 g/dL (0.2-0.5) 03/19/17 14:46 Gamma Globulins 0.7 g/dL (0.8-1.7) L 03/19/17 14:46 Abnorm Protein Band 1 see below 03/19/17 14:46 PEP Interpretation see below H 03/19/17 14:46 Triglycerides 195 mg/dL (2-149) H 03/18/17 17:05 Cholesterol 189 mg/dL (50-199) 03/18/17 17:05 LDL Cholesterol Direct 62 mg/dL (50-130) 03/18/17 17:05 HDL Cholesterol 88 mg/dL (40-59) H 03/18/17 17:05 Cholesterol/HDL Ratio 2.14 % 03/18/17 17:05 Urine Eosinophils 1% (None Seen) 03/20/17 Unknown Urine Creatinine 28.0 mg/dL (0.1-20.0) H 03/20/17 Unknown Protein/Creatinin Ratio 0.25 03/20/17 Unknown Urine Sodium 112 mEq/L 03/20/17 Unknown Urine Total Protein 7 mg/dL (5-11.8) 03/20/17 Unknown LISS Screen Negative (Negative) 03/19/17 14:46 Double Strand DNA Ab <1 IU/mL (<=4) 03/19/17 14:46 Glomerular Base Mem IgG <1.0 AI (<1.0) 03/19/17 14:46 Complement C3 123 mg/dL (90-180) 03/19/17 14:46 Complement C4 31 mg/dL (16-47) 03/19/17 14:46 Tot Complement (CH50) >60 U/mL (31-60) H 03/19/17 14:46 Hepatitis A IgM Ab Non-reactive (NonReactive) 03/19/17 20:35 Hep Bs Antigen Non-reactive (Negative) 03/19/17 20:35 Hep B Core IgM Ab Non-reactive (NonReactive) 03/19/17 20:35 Hepatitis C Antibody Non-reactive (NonReactive) 03/19/17 20:35 HIV 1&2 Antibody Rapid Non react (Non React) 03/19/17 14:46 HIV P24 Antigen Non react (Non React) 03/19/17 14:46 Anti-Streptolysin O Ab See scanned report 03/19/17 14:46 Miscellaneous Test Flexitest 1 H 03/21/17 05:55
[2017-04-03] MEDS ORDERED: NACL 0.9 (PRIMING MACHINE ONLY DIALYSIS) MC ONE (17:22)
[2017-04-03] MEDS: PRAVACHOL PO SCH (21:47)
[2017-04-04] MEDS: APRESOLINE PO SCH ×3 (05:14→22:30)
[2017-04-04] MEDS: NITRO-BID 2% TP SCH ×6 (05:14→17:59)
--- NOTE | 2017-04-04 10:17 | Progress Note ---
Assessment and Plan - Patient Problems (1) Volume overload Current Visit: Yes Status: Acute Qualifiers: Hypervolemia type: H Plan to address problem: Improving on HD (2) Acute kidney injury superimposed on CKD Current Visit: No Status: Acute Plan to address problem: Received hemdialysis yesterday for UF and clearance Will assess dialysis needs daily Renally dose medications Obtain daily weights Monitor I/O's Case management onboard for outpatient HD placement close to patient's home (3) Acute hyperkalemia Current Visit: Yes Status: Acute Plan to address problem: Resolved (4) Acute congestive heart failure Current Visit: No Status: Acute Qualifiers: Congestive heart failure type: systolic Qualified Code(s): I50.21 - Acute systolic (congestive) heart failure Plan to address problem: As per Cardiology (5) Diabetes mellitus Current Visit: Yes Status: Acute Qualifiers: Diabetes mellitus type: D Diabetes mellitus complication status: D Diabetes mellitus complication detail: D Diabetic retinopathy severity: D Proliferative retinopathy type: P Diabetes mellitus macular edema: D Diabetes mellitus intermediate manager insulin use: D Laterality: L Chronic kidney disease stage: C Plan to address problem: As per primary team (6) Hypertension Current Visit: Yes Status: Acute Qualifiers: Hypertension type: H Plan to address problem: Continue on anti-hypertensive agents. Subjective Date of service: 04/04/17 Principal diagnosis: severe renal failure Interval history: Patient seen walking in room. No family at bedside. Objective - Vital Signs Vital signs: Vital Signs - 12hr 04/04/17 04/04/17 04/04/17 00:55 04:28 08:29 Temperature 98.2 F 98.1 F 98.2 F Pulse Rate 84 75 72 Respiratory 18 18 19 Rate Blood Pressure 182/49 156/43 Blood Pressure 154/60 [Left] O2 Sat by Pulse 97 99 96 Oximetry - General Appearance General appearance: well-developed, appears stated age EENT: ATNC, PERRL, hearing intact, vision intact Neck: no JVD, supple Respiratory: Present: Decreased Breath Sounds Cardiology: regular, S1S2 Gastrointestinal: normoactive bowel sounds Integumentary: warm and dry Neurologic: alert and oriented x3 Musculoskeletal: joint swelling Psychiatric: cooperative - Lab 03/31/17 09:14 04/02/17 11:10 Most recent lab results Calcium 7.8 mg/dL (8.4-10.2) L 04/02/17 11:10 Phosphorus 3.00 mg/dL (2.5-4.5) 03/28/17 06:43 Urine Creatinine 28.0 mg/dL (0.1-20.0) H 03/20/17 Unknown Urine Sodium 112 mEq/L 03/20/17 Unknown Urine Total Protein 7 mg/dL (5-11.8) 03/20/17 Unknown
[2017-04-04] MEDS: LOPRESSOR PO SCH ×2 (11:01→22:30)
--- NOTE | 2017-04-04 11:01 | Progress Note ---
Assessment and Plan Volume overload Chronic renal failure initiated on dialysis Pulmonary edema Bilateral Pleural effusions Chest pain Cardiac cath procedure aborted due to absence of palpable arterial pulses, bilateral femoral, R radial and R brachial. fixed anteroapical defect, no reversible ischemia on MPI 07/2016 echocardiogram reports a mild decreased systolic function, EF 40-45% Hx of Anemia Diabetes Hypertension Hyperlipidemia Elevated troponin, chronic Recommend Continue medical therapy for underlying coronary artery disease to include aspirin, long-acting nitrates, beta blockers and statin therapy as tolerated. Subjective Date of service: 04/04/17 Principal diagnosis: severe renal failure Interval history: No cardiac issues. Objective Vital Signs Temp Pulse Resp BP BP Pulse Ox 04/04/17 08:29 98.2 F 72 19 154/60 96 04/04/17 04:28 98.1 F 75 18 156/43 99 04/04/17 00:55 98.2 F 84 18 182/49 97 04/03/17 22:00 18 04/03/17 19:19 98.2 F 78 18 157/48 99 04/03/17 19:10 79 169/64 04/03/17 16:34 97.9 F 79 18 169/64 100 04/03/17 14:00 98.6 F 67 16 160/71 04/03/17 13:15 67 160/71 04/03/17 13:00 66 142/66 04/03/17 12:45 66 183/69 04/03/17 12:30 66 161/73 04/03/17 12:15 66 134/59 04/03/17 12:00 67 133/65 04/03/17 11:45 67 125/59 04/03/17 11:30 67 161/59 04/03/17 11:15 67 171/79 - Physical Examination General: No Apparent Distress, Other (obese) HEENT: Positive: PERRL Neck: Negative: JVD/HJR Cardiac: Positive: Reg Rate and Rhythm Neuro: Positive: Grossly Intact
[2017-04-04] MEDS: ASPIRIN PO SCH (11:02)
[2017-04-04] MEDS: HEPARIN SUB-Q SCH ×2 (11:02→22:30)
[2017-04-04] MEDS: SODIUM BICARBONATE PO SCH ×3 (11:07→20:57)
[2017-04-04] MEDS: TRENTAL PO SCH ×3 (11:08→20:57)
[2017-04-04] MEDS: PROTONIX PO SCH (11:08)
--- NOTE | 2017-04-04 12:16 | Progress Note ---
Assessment and Plan Assessment and plan: Acute on chronic renal failure stage IV; on hemodialysis per nephrology, Case management to set up outpatient hemodialysis chair, multiple social issues permcath placed 03/30/17 Non-ST elevation [place]; continue aspirin and beta blockers BARBER inhibitor nitrates and statins, Left heart cath canceled , due to absence of palpable arterial pulses, bilateral femoral, R radial and R brachial. No reversible ischemia , fixed defect on MPI 07/2016, ejection fraction 40-45% on echo Type 2 diabetes mellitus; blood sugars moderate control Closely monitor blood sugars, Accu-Cheks sliding scale coverage, consistent carb diet Acute on chronic systolic congestive heart failure Ejection fraction 40-45%, continue anti-failure medications Dyslipidemia; continue current lipid-lowering medications Hypertension; moderate control, continue current antihypertensives and when necessary medications Hypoglycemia episodes. Discontinue Glipizide. hemoglobin A1C 5.4. On Insulin Morbid obesity; advised dietary modification and exercise as tolerated and weight reduction when medically stable Moderate protein calorie malnutrition; supportive care, nutrition supplements DVT prophylaxis with heparin Permcath placed 03/30/17 Discharge planning per Case management, Patient is medically stable for discharge, after outpatient dialysis arranged. History Interval history: No new issues overnight. Hospitalist Physical - Constitutional Vitals: Temp Pulse Resp BP Pulse Ox 98.2 F 72 19 154/60 96 04/04/17 08:29 04/04/17 08:29 04/04/17 08:29 04/04/17 08:29 04/04/17 08:29 General appearance: Present: no acute distress, well-nourished, obese - EENT Eyes: Present: PERRL, EOM intact ENT: hearing intact, clear oral mucosa, dentition normal - Neck Neck: Present: supple, normal ROM - Respiratory Respiratory effort: normal Respiratory: bilateral: CTA - Cardiovascular Rhythm: regular Heart Sounds: Present: S1 & S2. Absent: gallop, rub - Extremities Extremities: no ischemia, No edema, Full ROM - Abdominal General gastrointestinal: soft, non-tender, non-distended, normal bowel sounds - Integumentary Integumentary: Present: clear, warm, dry - Neurologic Neurologic: CNII-XII intact, moves all extremities Results - Labs CBC & Chem 7: 03/31/17 09:14 04/02/17 11:10 Labs: Laboratory Last Values WBC 8.4 K/mm3 (4.5-11.0) 03/31/17 09:14 RBC 3.20 M/mm3 (3.65-5.03) L 03/31/17 09:14 Hgb 9.3 gm/dl (10.1-14.3) L 03/31/17 09:14 Hct 28.1 % (30.3-42.9) L 03/31/17 09:14 MCV 88 fl (79-97) 03/31/17 09:14 MCH 29 pg (28-32) 03/31/17 09:14 MCHC 33 % (30-34) 03/31/17 09:14 RDW 13.7 % (13.2-15.2) 03/31/17 09:14 Plt Count 210 K/mm3 (140-440) 03/31/17 09:14 Lymph % (Auto) 18.2 % (13.4-35.0) 03/29/17 06:54 [place] % (Auto) 8.5 % (0.0-7.3) H 03/29/17 06:54 Eos % (Auto) 3.4 % (0.0-4.3) 03/29/17 06:54 Baso % (Auto) 0.7 % (0.0-1.8) 03/29/17 06:54 Lymph # 1.3 K/mm3 (1.2-5.4) 03/29/17 06:54 [place] # 0.6 K/mm3 (0.0-0.8) 03/29/17 06:54 Eos # 0.2 K/mm3 (0.0-0.4) 03/29/17 06:54 Baso # 0.1 K/mm3 (0.0-0.1) 03/29/17 06:54 Seg Neutrophils % 69.2 % (40.0-70.0) 03/29/17 06:54 Seg Neutrophils # 5.0 K/mm3 (1.8-7.7) 03/29/17 06:54 PT 13.8 Sec. (12.2-14.9) 03/19/17 04:23 INR 1.01 (0.87-1.13) 03/19/17 04:23 APTT 36.0 Sec. (24.2-36.6) 03/19/17 04:23 Heparin Anti-Xa Level 0.68 U.I./ml (0.3-0.7) 03/19/17 11:55 Sodium 134 mmol/L (137-145) L 04/02/17 11:10 Potassium 4.4 mmol/L (3.6-5.0) 04/02/17 11:10 Chloride 95.0 mmol/L (98-107) L 04/02/17 11:10 Carbon Dioxide 27 mmol/L (22-30) 04/02/17 11:10 Anion Gap 16 mmol/L 04/02/17 11:10 BUN 31 mg/dL (7-17) H 04/02/17 11:10 Creatinine 5.2 mg/dL (0.7-1.2) H 04/02/17 11:10 Estimated GFR 8 ml/min 04/02/17 11:10 BUN/Creatinine Ratio 6 % 04/02/17 11:10 Glucose 222 mg/dL (65-100) H 04/02/17 11:10 POC Glucose 192 (70-105) H 04/04/17 07:37 Hemoglobin A1c 5.4 % (4-6) 03/31/17 09:14 Calcium 7.8 mg/dL (8.4-10.2) L 04/02/17 11:10 Phosphorus 3.00 mg/dL (2.5-4.5) 03/28/17 06:43 Total Bilirubin 0.20 mg/dL (0.1-1.2) 03/20/17 06:13 AST 18 units/L (5-40) 03/20/17 06:13 ALT 15 units/L (7-56) 03/20/17 06:13 Alkaline Phosphatase 86 units/L (35-129) 03/20/17 06:13 Total Creatine Kinase 180 units/L (30-135) H 03/19/17 04:23 CK-MB (CK-2) 10.5 ng/mL (0.0-4.0) H 03/19/17 04:23 CK-MB (CK-2) Rel Index 5.8 (0-4) H 03/19/17 04:23 Troponin T 0.141 ng/mL (0.00-0.029) H* 03/19/17 04:23 NT-Pro-B Natriuret Pep 78193 pg/mL (0-900) H 03/18/17 19:43 Serum Total Protein 5.1 g/dL (6.1-8.1) L 03/19/17 14:46 Total Protein 4.6 g/dL (6.3-8.2) L 03/20/17 06:13 Albumin 2.3 g/dL (3.9-5) L 03/20/17 06:13 Albumin/Globulin Ratio 1.0 % 03/20/17 06:13 Chcpv-7-Affxohnub 0.4 g/dL (0.2-0.3) H 03/19/17 14:46 Ulnmc-6-Noierdkeq 1.0 g/dL (0.5-0.9) H 03/19/17 14:46 Beta Globulins 0.4 g/dL (0.2-0.5) 03/19/17 14:46 Gamma Globulins 0.7 g/dL (0.8-1.7) L 03/19/17 14:46 Abnorm Protein Band 1 see below 03/19/17 14:46 PEP Interpretation see below H 03/19/17 14:46 Triglycerides 195 mg/dL (2-149) H 03/18/17 17:05 Cholesterol 189 mg/dL (50-199) 03/18/17 17:05 LDL Cholesterol Direct 62 mg/dL (50-130) 03/18/17 17:05 HDL Cholesterol 88 mg/dL (40-59) H 03/18/17 17:05 Cholesterol/HDL Ratio 2.14 % 03/18/17 17:05 Urine Eosinophils 1% (None Seen) 03/20/17 Unknown Urine Creatinine 28.0 mg/dL (0.1-20.0) H 03/20/17 Unknown Protein/Creatinin Ratio 0.25 03/20/17 Unknown Urine Sodium 112 mEq/L 03/20/17 Unknown Urine Total Protein 7 mg/dL (5-11.8) 03/20/17 Unknown LISS Screen Negative (Negative) 03/19/17 14:46 Double Strand DNA Ab <1 IU/mL (<=4) 03/19/17 14:46 Glomerular Base Mem IgG <1.0 AI (<1.0) 03/19/17 14:46 Complement C3 123 mg/dL (90-180) 03/19/17 14:46 Complement C4 31 mg/dL (16-47) 03/19/17 14:46 Tot Complement (CH50) >60 U/mL (31-60) H 03/19/17 14:46 Hepatitis A IgM Ab Non-reactive (NonReactive) 03/19/17 20:35 Hep Bs Antigen Non-reactive (Negative) 03/19/17 20:35 Hep B Core IgM Ab Non-reactive (NonReactive) 03/19/17 20:35 Hepatitis C Antibody Non-reactive (NonReactive) 03/19/17 20:35 HIV 1&2 Antibody Rapid Non react (Non React) 03/19/17 14:46 HIV P24 Antigen Non react (Non React) 03/19/17 14:46 Anti-Streptolysin O Ab See scanned report 03/19/17 14:46 Miscellaneous Test Flexitest 1 H 03/21/17 05:55
[2017-04-04] MEDS: PRAVACHOL PO SCH (22:30)
[2017-04-05] MEDS: NITRO-BID 2% TP SCH ×2 (05:46→09:43)
[2017-04-05] MEDS: APRESOLINE PO SCH (05:48)
--- NOTE | 2017-04-05 07:29 | Discharge Summary ---
Providers - Providers Date of Admission: 03/18/17 23:04 Date of discharge: 04/05/17 Attending physician: VICTOR MANUEL RIOS 03/18/17 20:33 Consult to Physician [CONS] Stat Consulting Provider: KAYODE CARMONA Reason For Exam: KIDNEY FAILURE WITH HYPERKALEMIA Place consult to:: Dr. Carmona Notified:: Via Office Number Phone number called:: [phone] Was contact made?: Yes If yes, spoke with:: Dr. Carmona Time called:: 20:14 Comment:: Dr. Singh (er dr) spoke with Dr. Carmona 03/18/17 20:34 Consult to Physician [CONS] Stat Consulting Provider: MARY RON Reason For Exam: VASCULAR ACCESS FOR DIALYSIS Place consult to:: Dr. Ron Notified:: Answering Service Phone number called:: [phone] Was contact made?: Yes If yes, spoke with:: Dr. Ron Time called:: 20:29 Comment:: Dr. Haynes (er dr) spoke with Dr. Ron 03/23/17 11:33 PICC Line Placement [Consult to PICC Line RN] [CONS] Urgent Reason For Exam: no iv site, need angiogram Type Line:: PICC 03/23/17 12:24 Consult to Case Management [CONS] Routine Services Needed at Discharge: Other Notified:: yes If yes, spoke with:: CORY Bill was notified Comment:: Outpatient HD placement 03/24/17 04:48 Physical Therapy Evaluation and Treat [CONS] Routine Comment: Reason For Exam: change in mobility 03/29/17 09:38 Consult to Physician [CONS] Routine Consulting Provider: MARY RON Reason For Exam: permcath placement Place consult to:: vascular Notified:: office Phone number called:: [phone] Was contact made?: Yes Time called:: 09:56 04/02/17 17:59 Consult to Case Management [CONS] Routine Services Needed at Discharge: Other Notified:: patient case coordinator Additional Physician Instructions: place patient at [facility] dialysis unit phone no [phone] Primary care physician: MELBA FELIX Hospitalization Reason for admission: cp Condition: Stable Hospital course: This patient's a 61-year-old woman with multiple medical problems including diabetes, hypertension, peripheral vascular disease, chronic renal failure and anemia. She is admitted to the hospital at this time with chest pain and shortness of breath. A chest x-ray done in the emergency room reports pulmonary edema with moderate pleural effusions. No acute ischemic changes on her EKG. There was some elevation of the cardiac enzymes with a CK-MB of 12.5 and a troponin level of 0.14. Also noted worsening renal failure with a creatinine of 7.2. Most recent cardiac workup was done at this hospital 8 months ago. An echocardiogram reports preserved left ventricle systolic function but there are regional wall motion abnormalities at the apex, suggesting the presence of underlying coronary artery disease. Patient was readmitted to this hospital a month later and underwent a persantine thallium stress test revealed a moderate sized fixed anteroapical defect. No significant reversible ischemia. The patient was admitted to the hospital on this occasion with diagnosis of acute hypoxic respiratory failure, acute on chronic systolic congestive heart failure and non-ST elevation RI. Patient was seen by cardiology and nephrology consultation. Patient was initially scheduled for cardiac cath procedure but it was aborted due to absence of palpable arterial pulses, bilateral femoral, R radial and R brachial. Cardiology essentially recommended conservative cardiac management in the absence of chest pain or angina. Pt. was continued on medical therapy for underlying coronary artery disease which included aspirin, long-acting nitrates, beta blockers and statin therapy as tolerated. Patient received temporary dialysis catheter placement and hemodialysis throughout hospitalization. Case management was consulted to arrange for outpatient hemodialysis. Patient was eventually accepted at [facility] dialysis. She will begin today at 11:45 a.m. Dedicated discharge time 35 minutes. Disposition: TO HOME OR SELFCARE Time spent for discharge: 35 - Discharge Diagnoses (1) Non-ST elevated myocardial infarction (non-STEMI) Status: Acute (2) Diabetes mellitus Status: Acute (3) ESRD (end stage renal disease) on dialysis Status: Acute (4) Hypertension Status: Acute (5) Acute congestive heart failure Status: Acute Qualifiers: Congestive heart failure type: systolic Qualified Code(s): I50.21 - Acute systolic (congestive) heart failure (6) Acute respiratory failure Status: Acute Core Measure Documentation - Palliative Care Palliative Care/ Comfort Measures: Not Applicable - Core Measures Any of the following diagnoses?: acute RI, heart failure - Acute RI Discharge Requirements Aspirin at discharge: Yes BARBER/ARB for LVSD if EF <40%: No Reason for no BARBER/ARB: Renal impairment Beta madyson at discharge: Yes Statin for LDL = or >100 mg/dl on DC: Yes - Heart Failure Discharge Requirements BARBER/ARB for LVSD if EF <40%: Yes Reason for no BARBER/ARB: Renal impairment Beta madyson at discharge: Yes Exam - Constitutional Vitals: Temp Pulse Resp BP Pulse Ox 98.6 F 77 19 154/51 95 04/05/17 04:47 04/05/17 05:48 04/05/17 04:47 04/05/17 05:48 04/05/17 04:47 General appearance: Present: no acute distress, well-nourished - EENT Eyes: Present: PERRL ENT: hearing intact, clear oral mucosa - Neck Neck: Present: supple, normal ROM - Respiratory Respiratory effort: normal Respiratory: bilateral: CTA - Cardiovascular Heart Sounds: Present: S1 & S2. Absent: rub, click - Extremities Extremities: pulses symmetrical, No edema Peripheral Pulses: within normal limits - Abdominal General gastrointestinal: Present: soft, non-tender, non-distended, normal bowel sounds Female genitourinary: Present: normal - Integumentary Integumentary: Present: clear, warm, dry - Musculoskeletal Musculoskeletal: gait normal, strength equal bilaterally - Psychiatric Psychiatric: appropriate mood/affect, intact judgment & insight - Neurologic Neurologic: CNII-XII intact, moves all extremities Plan Activity: no restrictions Weight Bearing Status: Full Weight Bearing Diet: diabetic, renal Follow up with: MELBA FELIX MD [Primary Care Provider] - 3-5 Days NATHALIE RANDOLPH MD [Staff Physician] - 7 Days JANNA LEGER MD [Staff Physician] - 7 Days Prescriptions: Aspirin [Aspirin TAB] 325 mg PO QDAY #30 tablet hydrALAZINE [Apresoline TAB] 25 mg PO Q8HR #90 tablet Insulin NPH/Regular [NovoLIN 70/30] 15 unit SQ BIDDIAB #30 units Metoprolol [Lopressor TAB] 50 mg PO BID #60 tablet Pantoprazole [Protonix TAB] 40 mg PO DAILY #30 tablet Pentoxifylline 400 mg PO TID #90 Pravastatin [Pravachol] 20 mg PO QHS #30 tablet Sodium Bicarbonate 650 mg PO TID #90 tablet traMADol [Ultram 50 MG tab] 50 mg PO Q6HR PRN #30 tablet PRN Reason: Pain
[2017-04-05 07:52] LABS: Calcium 8.4 mg/dL (8.4-10.2); Chloride 97.8 mmol/L (98-107); Potassium 4.8 mmol/L (3.6-5.0)
[2017-04-05 08:57] VITALS: BP 152/52
[2017-04-05] MEDS ORDERED: NACL 0.9% 100 ML IV PRN (09:08)
[2017-04-05] MEDS: HEPARIN SUB-Q SCH (09:42)
[2017-04-05] MEDS: ASPIRIN PO SCH (09:42)
[2017-04-05] MEDS: PROTONIX PO SCH (09:42)
[2017-04-05] MEDS: LOPRESSOR PO SCH (09:42)
== END 2017-04-05 10:15 | disposition home or self-care (01) | DRG 871 ==
LOC: ED 16:33 → 4A 23:04
PROVIDERS: ADMIT Internal Medicine; ATTEND Hospitalist
PROC: 02H633Z Insertion of Infusion Device into Right Atrium, Percutaneous Approach (ICD-10-PCS; principal; 2017-03-19)
PROC: B2141ZZ Fluoroscopy of Right Heart using Low Osmolar Contrast (ICD-10-PCS; 2017-03-19)
PROC: 5A1D70Z Performance of Urinary Filtration, Intermittent, Less than 6 Hours Per Day (ICD-10-PCS; 2017-03-29)
PROC: 0J2VXYZ Change Other Device in Upper Extremity Subcutaneous Tissue and Fascia, External Approach (ICD-10-PCS; 2017-03-30)
PROC: 5A1D70Z Performance of Urinary Filtration, Intermittent, Less than 6 Hours Per Day (ICD-10-PCS; 2017-03-31)
PROC: 5A1D70Z Performance of Urinary Filtration, Intermittent, Less than 6 Hours Per Day (ICD-10-PCS; 2017-04-03)
DX: A41.9 Sepsis, unspecified organism (principal); I21.4 Non-ST elevation (NSTEMI) myocardial infarction; J18.9 Pneumonia, unspecified organism; I50.23 Acute on chronic systolic (congestive) heart failure; N18.6 End stage renal disease; J96.01 Acute respiratory failure with hypoxia; N17.9 Acute kidney failure, unspecified; I13.0 Hypertensive heart and chronic kidney disease with heart failure and stage 1 through stage 4 chronic kidney disease, or unspecified chronic kidney disease; E87.2 Acidosis; E44.0 Moderate protein-calorie malnutrition; E87.5 Hyperkalemia; E11.22 Type 2 diabetes mellitus with diabetic chronic kidney disease; E78.00 Pure hypercholesterolemia, unspecified; I73.9 Peripheral vascular disease, unspecified; E78.5 Hyperlipidemia, unspecified; I25.10 Atherosclerotic heart disease of native coronary artery without angina pectoris; D64.9 Anemia, unspecified; I16.0 Hypertensive urgency; E66.01 Morbid (severe) obesity due to excess calories; I25.5 Ischemic cardiomyopathy; E11.649 Type 2 diabetes mellitus with hypoglycemia without coma; Z79.4 Long term (current) use of insulin; Z79.899 Other long term (current) drug therapy; Z88.5 Allergy status to narcotic agent; Z88.0 Allergy status to penicillin; Z68.37 Body mass index [BMI] 37.0-37.9, adult
CPT/HCPCS: 36415; 36556; 36581; 71010; 76770; 77001; 80048; 80053; 80061; 80074; 82550; 82553; 82570; 82947; 82962; 83036; 83520; 83880; 84100; 84156; 84165; 84300; 84484; 85014; 85018; 85025; 85027; 85049; 85520; 85610; 85730; 86038; 86060; 86160; 86162; 86225; 86706; 86803; 87806; 89050; 93005; 93010; 93306; 93925; 93979; 94760; 96365; 96366; 96375; C1750; C1752; C1769; C1894; J0360; J0690; J1644; J1815; J1940; J2250; J2405; J3010; J3370; J7030; J7050

== ENCOUNTER 2017-04-14 00:43 | Inpatient (IN) | payer SELFPAY ==
[2017-04-14 02:36] LABS: Eosinophils % (Auto) 1.8 % (0.0-4.3); Hematocrit 26.4 % (30.3-42.9); Hemoglobin 8.7 gm/dl (10.1-14.3); Mean Corpuscular HGB Conc 33 % (30-34); Mean Corpuscular Hemoglobin 29 pg (28-32); Mean Corpuscular Volume 89 fl (79-97); Platelet Count 192 K/mm3 (140-440); Red Blood Count 2.98 M/mm3 (3.65-5.03); Red Cell Distribution Width 14.6 % (13.2-15.2); White Blood Count 11.6 K/mm3 (4.5-11.0)
[2017-04-14 02:46] LABS: Bilirubin,Urine NEG (Negative); Blood,Urine NEG (Negative); Ketones,Urine NEG (Negative); Leukocyte Esterase,Urine NEG (Negative); Nitrite,Urine NEG (Negative); Urobilinogen,Urine < 2.0 mg/dL (<2.0); WBC,Urine < 1.0 /HPF (0.0-6.0)
[2017-04-14 02:48] LABS: Protein,Urine >500 mg/dL (Negative)
[2017-04-14 02:53] LABS: Calcium 8.5 mg/dL (8.4-10.2)
[2017-04-14 02:54] LABS: Chloride 97.8 mmol/L (98-107); Potassium 4.1 mmol/L (3.6-5.0)
--- NOTE | 2017-04-14 03:08 | XRay Report ---
FINAL REPORT EXAM: XR CHEST ROUTINE 2V HISTORY: c/p BETTY TECHNIQUE: PA and lateral views of the chest were obtained. Comparison is made to the study of 03/18/2017. FINDINGS: The lungs are diffusely congested with patchy airspace disease in both lower lobes. There are bilateral effusions. The heart is mildly enlarged. There is a double lumen venous catheter with the tip in the right atrium. The bones and soft tissues do not show any acute changes. IMPRESSION: Stable pulmonary vascular congestion with airspace disease in both lung bases and effusions.
[2017-04-14] MEDS ORDERED: LASIX IV ONE (04:56)
--- NOTE | 2017-04-14 05:03 | Emergency Department Report ---
ED Shortness of Breath HPI - General Chief Complaint: Dyspnea/Respdistress Stated Complaint: BETTY Time Seen by Provider: 04/14/17 04:40 Source: patient Mode of arrival: Ambulatory Limitations: No Limitations - History of Present Illness Initial Comments: 61 YO FEMALE C/O SOB SINCE YESTERDAY. SHE RECENTLY BEGAN DIALYSIS AND IS DUE TO BE DIALYZED TODAY. SHE DOES NOT HAVE A PICKLER HELPER AND IS SEEN AT THE NEAR BY RENAL CLINIC MD Complaint: shortness of breath -: Gradual, days(s) (1) Improves With: oxygen, upright position Worsens With: lying flat Known History Of: congestive heart failure, other (RENAL FAILURE) - Related Data Home Medications Medication Instructions Recorded Confirmed Last Taken Pravastatin Sodium [Pravastatin] 20 mg PO QHS 04/27/15 03/18/17 06/24/16 21:00 glipiZIDE [Glucotrol] 10 mg PO BID 04/27/15 03/18/17 07/25/16 Bumetanide 1 mg PO BID 03/18/17 03/18/17 Unknown Previous Rx's Medication Instructions Recorded Last Taken Type Aspirin [Aspirin TAB] 325 mg PO QDAY #30 tablet 04/05/17 Unknown Rx Insulin NPH/Regular [NovoLIN 70/30] 15 unit SQ BIDDIAB #30 units 04/05/17 Unknown Rx Metoprolol [Lopressor TAB] 50 mg PO BID #60 tablet 04/05/17 Unknown Rx Pantoprazole [Protonix TAB] 40 mg PO DAILY #30 tablet 04/05/17 Unknown Rx Pentoxifylline 400 mg PO TID #90 04/05/17 Unknown Rx Pravastatin [Pravachol] 20 mg PO QHS #30 tablet 04/05/17 Unknown Rx Sodium Bicarbonate 650 mg PO TID #90 tablet 04/05/17 Unknown Rx hydrALAZINE [Apresoline TAB] 25 mg PO Q8HR #90 tablet 04/05/17 Unknown Rx traMADol [Ultram 50 MG tab] 50 mg PO Q6HR PRN #30 tablet 04/05/17 Unknown Rx Allergies Allergy/AdvReac Type Severity Reaction Status Date / Time codeine Allergy Hives Verified 07/26/16 07:29 morphine Allergy confusion Verified 07/26/16 07:29 Penicillins Allergy Hives Verified 07/26/16 07:29 ED Review of Systems ROS: Stated complaint: BETTY Other details as noted in HPI Constitutional: denies: chills, fever Eyes: denies: eye pain, eye discharge, vision change ENT: denies: ear pain, throat pain Respiratory: denies: cough, shortness of breath, wheezing Cardiovascular: denies: chest pain, palpitations Endocrine: no symptoms reported Gastrointestinal: denies: abdominal pain, nausea, diarrhea Genitourinary: denies: urgency, dysuria, discharge Musculoskeletal: other (LEG SWELLING). denies: back pain, joint swelling, arthralgia Skin: denies: rash, lesions Neurological: denies: headache, weakness, paresthesias Psychiatric: denies: anxiety, depression Hematological/Lymphatic: denies: easy bleeding, easy bruising ED Past Medical Hx - Past Medical History Previous Medical History?: Yes Hx Hypertension: Yes Hx Heart Attack/AMI: No Hx Congestive Heart Failure: Yes Hx Diabetes: Yes Hx Deep Vein Thrombosis: No Hx Pulmonary Embolism: No Hx Liver Disease: No Hx Renal Disease: No Hx Kidney Stones: No Hx Asthma: No Hx COPD: No Hx Tuberculosis: No Hx HIV: No Additional medical history: HIGH CHOLESTEROL - Surgical History Past Surgical History?: Yes Hx Coronary Stent: No Hx Pacemaker: No Hx Internal Defibrillator: No Additional Surgical History: right chest vas cath - Social History Smoking Status: Never Smoker Substance Use Type: None - Medications Home Medications: Home Medications Medication Instructions Recorded Confirmed Last Taken Type Pravastatin Sodium [Pravastatin] 20 mg PO QHS 04/27/15 03/18/17 06/24/16 21:00 History glipiZIDE [Glucotrol] 10 mg PO BID 04/27/15 03/18/17 07/25/16 History Bumetanide 1 mg PO BID 03/18/17 03/18/17 Unknown History Aspirin [Aspirin TAB] 325 mg PO QDAY #30 tablet 04/05/17 Unknown Rx Insulin NPH/Regular [NovoLIN 70/30] 15 unit SQ BIDDIAB #30 units 04/05/17 Unknown Rx Metoprolol [Lopressor TAB] 50 mg PO BID #60 tablet 04/05/17 Unknown Rx Pantoprazole [Protonix TAB] 40 mg PO DAILY #30 tablet 04/05/17 Unknown Rx Pentoxifylline 400 mg PO TID #90 04/05/17 Unknown Rx Pravastatin [Pravachol] 20 mg PO QHS #30 tablet 04/05/17 Unknown Rx Sodium Bicarbonate 650 mg PO TID #90 tablet 04/05/17 Unknown Rx hydrALAZINE [Apresoline TAB] 25 mg PO Q8HR #90 tablet 04/05/17 Unknown Rx traMADol [Ultram 50 MG tab] 50 mg PO Q6HR PRN #30 tablet 04/05/17 Unknown Rx ED Physical Exam - General Limitations: No Limitations General appearance: alert, in distress - Head Head exam: Present: atraumatic, normocephalic - Eye Eye exam: Present: normal appearance, EOMI - ENT ENT exam: Present: mucous membranes moist - Neck Neck exam: Present: normal inspection - Respiratory Respiratory exam: Present: normal lung sounds bilaterally, respiratory distress , decreased breath sounds - Cardiovascular Cardiovascular Exam: Present: regular rate, normal rhythm, normal heart sounds. Absent: systolic murmur, diastolic murmur, rubs, gallop - GI/Abdominal GI/Abdominal exam: Present: soft, normal bowel sounds, other (LARGE CENTRIPITAL FAT). Absent: distended, tenderness - Rectal Rectal exam: Present: deferred - Extremities Exam Extremities exam: Present: normal inspection, pedal edema (3+) - Back Exam Back exam: Present: normal inspection, full ROM - Neurological Exam Neurological exam: Present: alert, oriented X3, CN II-XII intact - Psychiatric Psychiatric exam: Present: normal affect, normal mood - Skin Skin exam: Present: warm, dry, intact, normal color. Absent: rash ED Course Vital Signs 04/14/17 01:09 Temperature 98.1 F Pulse Rate 87 Respiratory 20 Rate Blood Pressure 150/53 O2 Sat by Pulse 95 Oximetry ED Medical Decision Making - Lab Data Result diagrams: 04/14/17 02:14 04/14/17 02:14 - EKG Data -: EKG Interpreted by In EKG shows normal: sinus rhythm, axis, intervals, QRS complexes - Radiology Data Radiology results: report reviewed (CXR: PULMONARY VASCULAR CONGESTION) Critical Care Time: Yes Critical care time in (mins) excluding proc time.: 60 Critical care attestation.: If time is entered above; I have spent that time in minutes in the direct care of this critically ill patient, excluding procedure time. LACIE ED Disposition Clinical Impression: Acute CHF Qualifiers: Congestive heart failure type: unspecified congestive heart failure type Qualified Code(s): I50.9 - Heart failure, unspecified ARF (acute renal failure) Qualifiers: Acute renal failure type: unspecified Qualified Code(s): N17.9 - Acute kidney failure, unspecified Disposition: OP ADMIT IP TO THIS HOSP Is pt being admited?: Yes Does the pt Need Aspirin: No Condition: Serious Referrals: PRIMARY CARE, [Primary Care Provider] - 3-5 Days Time of Disposition: 05:38 (CASE REVIEWED WITH DR MARY WOOD WHO WILL ADMIT HER TO THE HOSPITAL)
[2017-04-14] MEDS ORDERED: APRESOLINE IV ONE (05:21)
[2017-04-14] MEDS ORDERED: APRESOLINE IV PRN (05:21)
[2017-04-14] MEDS ORDERED: TYLENOL PO PRN (05:23)
[2017-04-14] MEDS ORDERED: ZOFRAN IV PRN (05:23)
[2017-04-14] MEDS ORDERED: NITRO-BID 2% TP ONE ×2 (05:42→06:57)
--- NOTE | 2017-04-14 06:10 | History and Physical Report ---
History of Present Illness Date of examination: 04/14/17 Date of admission: 04/14/17 05:23 History of present illness: 61-year-old with a history of hypertension, end-stage renal disease on dialysis Sunday, Sunday, Sunday, peripheral vascular disease, coronary artery disease who was just discharged from the hospital on May 05 comes back to the emergency room with complaint of shortness of breath over the last 2 days. Her last dialysis was on Sunday. Also complaining of chest pressure in the left substernal area, constant over the last 2 days, radiating to her back, cannot identify exacerbating or relieving factors. Admits to nausea, no diaphoresis or palpitations Review Of Systems: Constitutional: no weight loss Ears, eyes, nose, mouth and throat: no nasal congestion, no nasal discharge, no sinus pressure, blurry vision, diplopia Neck: No neck pain or rigidity. Cardiovascular: no orthopnea, palpitations Respiratory: No cough Gastrointestinal: abdominal pain, hematochezia Genitourinary : no dysuria, frequency , hematuria Musculoskeletal: no muscle ache Integumentary: no rash, no pruritis Neurological: no parathesias, focal weakness Endocrine: no cold or heat intolerance, no polyuria or polydipsia Hematologic/Lymphatic: no easy bruising, no easy bleeding, no gland swelling Allergic/Immunologic: no urticaria, no angioedema. PAST MEDICAL HISTORY:hypertension, end-stage renal disease on dialysis Sunday, Sunday, Sunday, peripheral vascular disease, coronary artery disease PAST SURGICAL HISTORY: 2 FAILY HISTORY: Hypertension SOCIAL HISTORY: Denies alcohol, tobacco, drugs Medications and Allergies Allergies Allergy/AdvReac Type Severity Reaction Status Date / Time codeine Allergy Hives Verified 07/26/16 07:29 morphine Allergy confusion Verified 07/26/16 07:29 Penicillins Allergy Hives Verified 07/26/16 07:29 Home Medications Medication Instructions Recorded Confirmed Last Taken Type Pravastatin Sodium [Pravastatin] 20 mg PO QHS 04/27/15 04/15/17 04/13/17 History glipiZIDE [Glucotrol] 10 mg PO BID 04/27/15 04/15/17 04/13/17 History Bumetanide 1 mg PO BID 03/18/17 04/15/17 04/13/17 History Aspirin [Aspirin TAB] 325 mg PO QDAY #30 tablet 04/05/17 04/15/17 04/13/17 Rx Insulin NPH/Regular [NovoLIN 70/30] 15 unit SQ BIDDIAB #30 units 04/05/1704/13/17 Rx Metoprolol [Lopressor TAB] 50 mg PO BID #60 tablet 04/05/17 04/15/17 04/13/17 Rx Pantoprazole [Protonix TAB] 40 mg PO DAILY #30 tablet 04/05/17 04/15/17 Rx Pentoxifylline 400 mg PO TID #90 04/05/17 04/15/17 04/13/17 Rx Pravastatin [Pravachol] 20 mg PO QHS #30 tablet 04/05/17 04/15/17 04/13/17 Rx Sodium Bicarbonate 650 mg PO TID #90 tablet 04/05/17 04/15/17 04/13/17 Rx hydrALAZINE [Apresoline TAB] 25 mg PO Q8HR #90 tablet 04/05/17 04/15/17 Rx traMADol [Ultram 50 MG tab] 50 mg PO Q6HR PRN #30 tablet 04/05/17 04/15/17 Unknown Rx Active Meds: Active Medications Acetaminophen (Tylenol) 650 mg PO Q4H PRN PRN Reason: Pain MILD(1-3)/Fever >100.5/MACK Enoxaparin Sodium (Lovenox) 30 mg SUB-Q QDAY FELECIA Hydralazine HCl (Apresoline) 5 mg IV Q6HR PRN PRN Reason: Hypertension Ondansetron HCl (Zofran) 4 mg IV Q8H PRN PRN Reason: N/V unrelieved by Reglan Exam - Physical Exam Narrative exam: Gen. appearance: Patient lying in bed in no acute distress HEENT: Normocephalic/atraumatic, pupils equal round reactive to light, extra alkaline movement intact, no scleral icterus, no JVD or thyromegaly or nodule, neck is supple, mucous membrane moist, no erythema or exudate Heart: S1-S2, regular rate and rhythm Lungs: Crackles bilateral breathing comfortable Abdomen: Positive bowel sounds, nontender, nondistended, no organomegaly Extremities:+3 edema, cyanosis, clubbing Neuro:: Oriented 3 , cranial nerves II-12 intact, speech, motor intact Skin:heel ulcer, No rash, nodules, warm dry - Constitutional Vitals: Temp Pulse Resp BP Pulse Ox 98.1 F 83 32 H 201/104 100 04/14/17 01:09 04/14/17 06:05 04/14/17 06:05 04/14/17 06:05 04/14/17 06:05 Results - Labs CBC & Chem 7: 04/17/17 05:12 04/19/17 15:18 Labs: Abnormal lab results 04/14/17 04/14/17 04/14/17 Range/Units 02:14 02:14 04:17 WBC 11.6 H (4.5-11.0) K/mm3 RBC 2.98 L (3.65-5.03) M/mm3 Hgb 8.7 L (10.1-14.3) gm/dl Hct 26.4 L (30.3-42.9) % Lymph % (Auto) 10.4 L (13.4-35.0) % Seg Neutrophils % 82.0 H (40.0-70.0) % Seg Neutrophils # 9.5 H (1.8-7.7) K/mm3 Chloride 97.8 L (98-107) mmol/L BUN 50 H (7-17) mg/dL Creatinine 4.6 H (0.7-1.2) mg/dL Glucose 179 H (65-100) mg/dL Troponin T 0.536 H* 0.513 H* (0.00-0.029) ng/mL - Imaging and Cardiology EKG: image reviewed Chest x-ray: image reviewed Assessment and Plan Assessment Acute respiratory failure Fluid overload, need dialysis Pneumonia Unstable angina Coronary artery disease Hypertension uncontrolled Peripheral vascular disease Heel ulcer Plan Admit to medicine Status post IV Lasix, placed on BiPAP Spoke with renal Dr. Mayberry regarding dialysis Start IV Levaquin, check cardiac enzymes, consult cardiology Continue appropiate outpatient medication Dvt prophylaxis
[2017-04-14] MEDS ORDERED: LASIX ONE (06:56)
[2017-04-14] MEDS ORDERED: APRESOLINE ONE (06:57)
[2017-04-14 07:03] LABS: Creatine Kinase MB 5.5 ng/mL (0.0-4.0)
[2017-04-14] MEDS ORDERED: LEVAQUIN 750MG/150ML 750 MG/150 ML BAG IV ONE ×2 (10:00→16:00)
[2017-04-14] MEDS ORDERED: LEVAQUIN 500MG/100ML 500 MG/100 ML BAG IV SCH (10:00)
--- NOTE | 2017-04-14 10:06 | Consultation ---
History of Present Illness - Reason for Consult Consult date: 04/14/17 end stage renal disease - History of Present Illness This is a 61 year old Yi Speaking female who was recently discharged from the hospital after being diagnosed with ESRD. Patient was accepted to [facility] being followed in the clinic by Program Review Director Dr. Dixon/Chelsey Ernandez NP. Patient was seen and evaluated at [facility] on her first day of dialysis at her outpatient dialysis clinic last week to establish plan of care to include UF goal and fluid restriction. Patient does not speak Greenlandic. Patient is on Sunday, and Sunday schedule at her outpatient dialysis clinic but her schedule was changed this week to Sunday, Sunday and Sunday due to . Patient is due for hemodialysis today. Patient presents to hospital this morning with a chief complaint of shortness of breath. CXR showed stable vascular congestion with effusions. Patient placed on Bipap. We are being consulted for management of this patient's ESRD. Past History Past Medical History: anemia, dialysis, ESRD, heart failure, hypertension, renal failure Past Surgical History: Other (Right IJ perm-catheter placement) Social history: lives with family Family history: no significant family history Medications and Allergies Allergies Allergy/AdvReac Type Severity Reaction Status Date / Time codeine Allergy Hives Verified 07/26/16 07:29 morphine Allergy confusion Verified 07/26/16 07:29 Penicillins Allergy Hives Verified 07/26/16 07:29 Home Medications Medication Instructions Recorded Confirmed Last Taken Type Pravastatin Sodium [Pravastatin] 20 mg PO QHS 04/27/15 03/18/17 06/24/16 21:00 History glipiZIDE [Glucotrol] 10 mg PO BID 04/27/15 03/18/17 07/25/16 History Bumetanide 1 mg PO BID 03/18/17 03/18/17 Unknown History Aspirin [Aspirin TAB] 325 mg PO QDAY #30 tablet 04/05/17 Unknown Rx Insulin NPH/Regular [NovoLIN 70/30] 15 unit SQ BIDDIAB #30 units 04/05/17 Unknown Rx Metoprolol [Lopressor TAB] 50 mg PO BID #60 tablet 04/05/17 Unknown Rx Pantoprazole [Protonix TAB] 40 mg PO DAILY #30 tablet 04/05/17 Unknown Rx Pentoxifylline 400 mg PO TID #90 04/05/17 Unknown Rx Pravastatin [Pravachol] 20 mg PO QHS #30 tablet 04/05/17 Unknown Rx Sodium Bicarbonate 650 mg PO TID #90 tablet 04/05/17 Unknown Rx hydrALAZINE [Apresoline TAB] 25 mg PO Q8HR #90 tablet 04/05/17 Unknown Rx traMADol [Ultram 50 MG tab] 50 mg PO Q6HR PRN #30 tablet 04/05/17 Unknown Rx Active Meds: Active Medications Acetaminophen (Tylenol) 650 mg PO Q4H PRN PRN Reason: Pain MILD(1-3)/Fever >100.5/MACK Enoxaparin Sodium (Lovenox) 30 mg SUB-Q QDAY FELECIA Hydralazine HCl (Apresoline) 5 mg IV Q6HR PRN PRN Reason: Hypertension Levofloxacin/Dextrose (Levaquin 750mg/150ml) 750 mg in 150 mls @ 100 mls/hr IV ONCE ONE Stop: 04/14/17 11:29 Levofloxacin/Dextrose (Levaquin 500mg/100ml) 500 mg in 100 mls @ 100 mls/hr IV Q48H FELECIA Ondansetron HCl (Zofran) 4 mg IV Q8H PRN PRN Reason: N/V unrelieved by Reglan Review of Systems ROS unobtainable: due to mental status Exam - Vital Signs Vital signs: Vital Signs BP 127/90 04/14/17 00:01 - General Appearance General appearance: well-developed, appears stated age, obese, fatigue EENT: ATNC, PERRL Neck: Present: neck supple, trachea midline Respiratory: Decreased Breath Sounds, Other (on bipap) Heart: regular, S1S2 Gastrointestinal: Present: normoactive bowel sounds Integumentary: warm and dry Neurologic: confused Musculoskeletal: Present: joint swelling, other (Has 2-3+ edema to bilateral lower extremities) Results - Lab Results 04/14/17 02:14 04/14/17 02:14 Most recent lab results Calcium 8.5 mg/dL (8.4-10.2) 04/14/17 02:14 Assessment and Plan - Patient Problems (1) ESRD (end stage renal disease) on dialysis Current Visit: No Status: Acute Plan to address problem: Today is patient's dialysis day Hemodialysis today for UF and clearance, we will also hemodialyze patient tomorrow as well for volume removal CXR shows stable Pulmonary congestion Right IJ perm-catheter functional Fluid restriction of 1 liter per day Assess dialysis needs daily Obtian dialy weights Monitor I/O's Assess dialysis needs daily (2) Hypertension Current Visit: No Status: Acute Plan to address problem: Hemodialysis today Resume anti-hypertensive agents (3) Acute respiratory failure Current Visit: No Status: Acute Plan to address problem: On Bipap Hemodialysis today (4) Volume overload Current Visit: No Status: Acute Plan to address problem: Hemdodialysis today Fluid restriction of 1 liter per day
[2017-04-14] MEDS: LOVENOX SUB-Q SCH (10:26)
[2017-04-14] MEDS ORDERED: NACL 0.9% 100 ML IV PRN ×2 (12:19→12:21)
--- NOTE | 2017-04-14 13:11 | Consultation ---
History of Present Illness Consult date: 04/14/17 Consult reason: chest pain History of present illness: 61-year-old woman with end-stage renal disease, recently initiated into hemodialysis. She presents with shortness of breath and abnormal chest x-ray with evidence of bilateral effusion worse on the left. She is a poor historian due to language barrier, but it appears that she may have missed her hemodialysis session. There is no chest pain, ECG is sinus rhythm with nonspecific ST and T-wave abnormalities, no acute ischemia or infarction. 2 weeks ago, she was hospitalized here, and underwent noninvasive cardiac evaluation. Echocardiogram reported left ventricular ejection fraction 45%. A Persantine thallium stress test showed a small apical defect, and she was recommended for cardiac catheterization. Attempted catheterization procedure was aborted due to the inability to obtain arterial access due to small caliber peripheral vessels. Currently the patient is comfortable, on hemodialysis, no further cardiac complaints. Past History Past Medical History: anemia, dialysis, ESRD, heart failure, hypertension, renal failure Past Surgical History: Other (Right IJ perm-catheter placement) Social history: lives with family Family history: no significant family history Medications and Allergies Allergies Allergy/AdvReac Type Severity Reaction Status Date / Time codeine Allergy Hives Verified 07/26/16 07:29 morphine Allergy confusion Verified 07/26/16 07:29 Penicillins Allergy Hives Verified 07/26/16 07:29 Home Medications Medication Instructions Recorded Confirmed Last Taken Type Pravastatin Sodium [Pravastatin] 20 mg PO QHS 04/27/15 03/18/17 06/24/16 21:00 History glipiZIDE [Glucotrol] 10 mg PO BID 04/27/15 03/18/17 07/25/16 History Bumetanide 1 mg PO BID 03/18/17 03/18/17 Unknown History Aspirin [Aspirin TAB] 325 mg PO QDAY #30 tablet 04/05/17 Unknown Rx Insulin NPH/Regular [NovoLIN 70/30] 15 unit SQ BIDDIAB #30 units 04/05/17 Unknown Rx Metoprolol [Lopressor TAB] 50 mg PO BID #60 tablet 04/05/17 Unknown Rx Pantoprazole [Protonix TAB] 40 mg PO DAILY #30 tablet 04/05/17 Unknown Rx Pentoxifylline 400 mg PO TID #90 04/05/17 Unknown Rx Pravastatin [Pravachol] 20 mg PO QHS #30 tablet 04/05/17 Unknown Rx Sodium Bicarbonate 650 mg PO TID #90 tablet 04/05/17 Unknown Rx hydrALAZINE [Apresoline TAB] 25 mg PO Q8HR #90 tablet 04/05/17 Unknown Rx traMADol [Ultram 50 MG tab] 50 mg PO Q6HR PRN #30 tablet 04/05/17 Unknown Rx Active Meds: Active Medications Acetaminophen (Tylenol) 650 mg PO Q4H PRN PRN Reason: Pain MILD(1-3)/Fever >100.5/MACK Enoxaparin Sodium (Lovenox) 30 mg SUB-Q QDAY FELECIA Last Admin: 04/14/17 10:26 Dose: 30 mg Hydralazine HCl (Apresoline) 5 mg IV Q6HR PRN PRN Reason: Hypertension Levofloxacin/Dextrose (Levaquin 500mg/100ml) 500 mg in 100 mls @ 100 mls/hr IV Q48H FELECIA Sodium Chloride (Nacl 0.9%) 100 mls @ 999 mls/hr IV BAUTISTA PRN PRN Reason: Hypotension Sodium Chloride (Nacl 0.9%) 100 mls @ 999 mls/hr IV BAUTISTA PRN PRN Reason: Hypotension Ondansetron HCl (Zofran) 4 mg IV Q8H PRN PRN Reason: N/V unrelieved by Elizabeth Review of Systems Cardiovascular: shortness of breath, no chest pain, no orthopnea, no palpitations, no rapid/irregular heart beat, no edema, no syncope, no lightheadedness Physical Examination Vital Signs BP 127/90 04/14/17 00:01 General appearance: no acute distress HEENT: Positive: PERRL Neck: Positive: neck supple Cardiac: Positive: Reg Rate and Rhythm Lungs: Positive: Decreased Breath Sounds Neuro: Positive: Grossly Intact Abdomen: Positive: Soft Female genitourinary: deferred Skin: Positive: Clear Extremities: Absent: edema Results 04/14/17 02:14 04/14/17 02:14 Cardiac Enzymes 04/14/17 Range/Units 06:29 CK-MB (CK-2) 5.5 H (0.0-4.0) ng/mL CBC 04/14/17 Range/Units 02:14 WBC 11.6 H (4.5-11.0) K/mm3 RBC 2.98 L (3.65-5.03) M/mm3 Hgb 8.7 L (10.1-14.3) gm/dl Hct 26.4 L (30.3-42.9) % Plt Count 192 (140-440) K/mm3 Lymph # 1.2 (1.2-5.4) K/mm3 Cass # 0.6 (0.0-0.8) K/mm3 Eos # 0.2 (0.0-0.4) K/mm3 Baso # 0.1 (0.0-0.1) K/mm3 Comprehensive Metabolic Panel 04/14/17 Range/Units 02:14 Sodium 139 (137-145) mmol/L Potassium 4.1 (3.6-5.0) mmol/L Chloride 97.8 L (98-107) mmol/L Carbon Dioxide 26 (22-30) mmol/L BUN 50 H (7-17) mg/dL Creatinine 4.6 H (0.7-1.2) mg/dL Glucose 179 H (65-100) mg/dL Calcium 8.5 (8.4-10.2) mg/dL EKG interpretations - Telemetry EKG Rhythm: Sinus Rhythm Assessment and Plan - Patient Problems (1) Shortness of breath Current Visit: Yes Status: Acute Plan to address problem: Patient presented with shortness of breath, possibly after missed dialysis sessions. Chest x-ray demonstrates there mostly left pleural effusion, possibly due to fluid overload. A left lower lobe infiltrate or pneumonia cannot be excluded. There is no chest pain, no ECG changes of acute coronary ischemia. Recommend pulmonary evaluation of left pleural effusion and possible left lower lobe infiltrate, more dialysis for fluid management, and conservative cardiac management.
[2017-04-14] MEDS ORDERED: NACL 0.9 (PRIMING MACHINE ONLY DIALYSIS) MC ONE (13:12)
--- NOTE | 2017-04-14 14:21 | Event Note ---
Date: 04/14/17 Patient was seen and evaluated this morning, patient is on BiPAP, discussed with environmental field services technician and she'll get dialysis. Continue management per H&P.
[2017-04-14] MEDS: HEPARIN IV PRN (16:38)
[2017-04-15 05:39] LABS: Basophils % (Auto) 0.9 % (0.0-1.8); Eosinophils % (Auto) 3.9 % (0.0-4.3); Hematocrit 24.5 % (30.3-42.9); Hemoglobin 7.9 gm/dl (10.1-14.3); Mean Corpuscular HGB Conc 32 % (30-34); Mean Corpuscular Hemoglobin 29 pg (28-32); Mean Corpuscular Volume 89 fl (79-97); Platelet Count 201 K/mm3 (140-440); Red Blood Count 2.75 M/mm3 (3.65-5.03); Red Cell Distribution Width 14.5 % (13.2-15.2); White Blood Count 7.1 K/mm3 (4.5-11.0)
[2017-04-15 05:57] LABS: Calcium 8.8 mg/dL (8.4-10.2); Chloride 99.3 mmol/L (98-107)
[2017-04-15 06:17] LABS: Potassium 4.8 mmol/L (3.6-5.0)
[2017-04-15] MEDS: LOVENOX SUB-Q SCH (11:06)
--- NOTE | 2017-04-15 11:56 | Progress Note ---
Assessment and Plan - Patient Problems (1) Shortness of breath Current Visit: Yes Status: Acute Plan to address problem: Patient presented with shortness of breath, possibly after missed dialysis sessions. Chest x-ray demonstrates a mostly left pleural effusion, possibly due to fluid overload. A left lower lobe infiltrate or pneumonia cannot be excluded. There is no chest pain, no ECG changes of acute coronary ischemia. Recommend pulmonary evaluation of left pleural effusion and possible left lower lobe infiltrate, dialysis for fluid management, and conservative cardiac management. Subjective Date of service: 04/15/17 Interval history: Patient is comfortable, no acute distress, no cardiac complaints, looks and feels better. Objective Vital Signs Temp Pulse Resp BP Pulse Ox 04/15/17 09:15 98.9 F 78 18 138/66 04/15/17 09:00 76 148/67 04/15/17 08:45 77 133/59 04/15/17 08:30 80 82/43 04/15/17 08:15 80 111/50 04/15/17 08:00 81 91/56 04/15/17 07:45 81 107/56 04/15/17 07:30 82 86/35 04/15/17 07:15 86 107/40 04/15/17 07:05 84 97/45 04/15/17 06:45 83 123/44 04/15/17 06:30 82 103/28 04/15/17 06:15 82 131/62 04/15/17 06:00 83 165/68 04/15/17 05:45 83 176/85 04/15/17 05:35 98.9 F 89 15 181/88 04/15/17 04:40 98.4 F 87 18 155/67 100 04/15/17 00:43 20 04/15/17 00:01 98.3 F 86 18 146/58 100 04/14/17 21:40 99 04/14/17 20:49 96 H 04/14/17 19:52 98.0 F 96 H 18 133/51 98 04/14/17 16:39 98.3 F 82 20 108/46 100 04/14/17 15:40 100 04/14/17 14:34 98.8 F 106 H 20 124/74 04/14/17 14:30 77 109/57 04/14/17 14:15 78 107/50 04/14/17 14:00 80 98/42 04/14/17 13:45 78 121/35 04/14/17 13:30 77 95/55 04/14/17 13:15 77 102/54 04/14/17 13:00 75 116/53 04/14/17 12:45 77 111/59 04/14/17 12:30 80 107/41 04/14/17 12:15 78 98/42 04/14/17 12:00 77 100/51 - Physical Examination General: Appears Well, No Apparent Distress HEENT: Positive: PERRL Neck: Positive: neck supple Cardiac: Positive: Reg Rate and Rhythm Lungs: Positive: Decreased Breath Sounds Neuro: Positive: Grossly Intact Abdomen: Positive: Soft Skin: Positive: Clear Extremities: Absent: edema - Labs and Meds Lipids 04/14/17 Range/Units 02:14 Triglycerides 149 (2-149) mg/dL Cholesterol 194 (50-199) mg/dL HDL Cholesterol 80 H (40-59) mg/dL Cholesterol/HDL Ratio 2.42 % CBC 04/15/17 Range/Units 04:43 WBC 7.1 (4.5-11.0) K/mm3 RBC 2.75 L (3.65-5.03) M/mm3 Hgb 7.9 L (10.1-14.3) gm/dl Hct 24.5 L (30.3-42.9) % Plt Count 201 (140-440) K/mm3 Lymph # 1.3 (1.2-5.4) K/mm3 Christian # 0.5 (0.0-0.8) K/mm3 Eos # 0.3 (0.0-0.4) K/mm3 Baso # 0.1 (0.0-0.1) K/mm3 Comprehensive Metabolic Panel 04/15/17 Range/Units 04:43 Sodium 141 (137-145) mmol/L Potassium 4.8 (3.6-5.0) mmol/L Chloride 99.3 (98-107) mmol/L Carbon Dioxide 33 H D (22-30) mmol/L BUN 23 H (7-17) mg/dL Creatinine 3.1 H (0.7-1.2) mg/dL Glucose 62 L (65-100) mg/dL Calcium 8.8 (8.4-10.2) mg/dL - Imaging and Cardiology EKG: image reviewed
--- NOTE | 2017-04-15 15:48 | Progress Note ---
Assessment and Plan - Patient Problems (1) ESRD (end stage renal disease) on dialysis Current Visit: No Status: Acute Plan to address problem: Hemodialysis again today volume removal Right IJ perm-catheter functional Fluid restriction of 1 liter per day Assess dialysis needs daily Obtain dialy weights Monitor I/O's Assess dialysis needs daily (2) Hypertension Current Visit: No Status: Acute Plan to address problem: Hemodialysis again today Continue on anti-hypertensive agents (3) Acute respiratory failure Current Visit: No Status: Acute Plan to address problem: Hemodialysis again today (4) Volume overload Current Visit: No Status: Acute Plan to address problem: Hemdodialysis again today Fluid restriction of 1 liter per day Subjective Date of service: 04/15/17 Principal diagnosis: ESRD, volume overload Interval history: Patient seen lying in bed. Son and patient's at bedside. Had long discussion with family regarding fluid restriction of 1 liter per day (32 ounces ) and the consequences of volume overload to include . Objective - Vital Signs Vital signs: Vital Signs - 12hr 04/15/17 04/15/17 04/15/17 04:40 05:35 05:45 Temperature 98.4 F 98.9 F Pulse Rate 87 89 83 Respiratory 18 15 Rate Blood Pressure 155/67 181/88 176/85 O2 Sat by Pulse 100 Oximetry 04/15/17 04/15/17 04/15/17 06:00 06:15 06:30 Temperature Pulse Rate 83 82 82 Respiratory Rate Blood Pressure 165/68 131/62 103/28 O2 Sat by Pulse Oximetry 04/15/17 04/15/17 04/15/17 06:45 07:05 07:15 Temperature Pulse Rate 83 84 86 Respiratory Rate Blood Pressure 123/44 97/45 107/40 O2 Sat by Pulse Oximetry 04/15/17 04/15/17 04/15/17 07:30 07:45 08:00 Temperature Pulse Rate 82 81 81 Respiratory Rate Blood Pressure 86/35 107/56 91/56 O2 Sat by Pulse Oximetry 04/15/17 04/15/17 04/15/17 08:15 08:30 08:45 Temperature Pulse Rate 80 80 77 Respiratory Rate Blood Pressure 111/50 82/43 133/59 O2 Sat by Pulse Oximetry 04/15/17 04/15/17 04/15/17 09:00 09:15 12:00 Temperature 98.9 F Pulse Rate 76 78 78 Respiratory 18 Rate Blood Pressure 148/67 138/66 O2 Sat by Pulse Oximetry - General Appearance General appearance: well-developed, appears stated age EENT: ATNC, PERRL, hearing intact, vision intact Neck: no JVD, supple Respiratory: Present: Decreased Breath Sounds Cardiology: regular, S1S2 Gastrointestinal: normoactive bowel sounds Integumentary: other (bruising to abdominal area) Neurologic: alert and oriented x3 Musculoskeletal: joint swelling, other (edema improving) Psychiatric: mood/affect appropriate - Lab 04/15/17 04:43 04/15/17 04:43 Most recent lab results Calcium 8.8 mg/dL (8.4-10.2) 04/15/17 04:43
[2017-04-15] MEDS ORDERED: ULTRAM PO PRN (16:14)
--- NOTE | 2017-04-15 16:24 | Progress Note ---
Assessment and Plan Assessment and plan: Acute hypoxic respiratory failure Fluid overload ESRD on hemodialysis Acute on chronic systolic CHF History of CAD Hyperlipidemia Left sided pleural effusion - patient was on BiPAP yesterday, and she is on [place] oxygen today - Hemodialysis per nephrology - Cardiology recommended further workup at this time - Continue appropriate home medications - Pulmonary consulted DVT prophylaxis - Heparin Disposition - Continue inpatient care. History Interval history: patient's SOB is getting better, off BIPAP Hospitalist Physical - Physical exam Narrative exam: In mild cardiopulmonary distress. The patient appeared well nourished and normally developed. Vital signs as documented. Head exam is unremarkable. No scleral icterus . Neck is without jugular venous distension, thyromegaly, or carotid bruits. Lungs are clear to auscultation. Cardiac exam reveals regular rate and Rhythm. First and second heart sounds normal. No murmurs, rubs or gallops. Abdominal exam reveals normal bowel sounds, no masses, no organomegaly and no aortic enlargement. Extremities +2 pedal and pretibial edema. LOG PREPARER: Alert and oriented 3. No focal weakness. - Constitutional Vitals: Temp Pulse Resp BP Pulse Ox 98.9 F 78 18 138/66 100 04/15/17 09:15 04/15/17 12:00 04/15/17 09:15 04/15/17 09:15 04/15/17 04:40 General appearance: Present: no acute distress Results - Labs CBC & Chem 7: 04/15/17 04:43 04/15/17 04:43 Labs: Laboratory Last Values WBC 7.1 K/mm3 (4.5-11.0) 04/15/17 04:43 RBC 2.75 M/mm3 (3.65-5.03) L 04/15/17 04:43 Hgb 7.9 gm/dl (10.1-14.3) L 04/15/17 04:43 Hct 24.5 % (30.3-42.9) L 04/15/17 04:43 MCV 89 fl (79-97) 04/15/17 04:43 MCH 29 pg (28-32) 04/15/17 04:43 MCHC 32 % (30-34) 04/15/17 04:43 RDW 14.5 % (13.2-15.2) 04/15/17 04:43 Plt Count 201 K/mm3 (140-440) 04/15/17 04:43 Lymph % (Auto) 18.4 % (13.4-35.0) 04/15/17 04:43 [place] % (Auto) 7.5 % (0.0-7.3) H 04/15/17 04:43 Eos % (Auto) 3.9 % (0.0-4.3) 04/15/17 04:43 Baso % (Auto) 0.9 % (0.0-1.8) 04/15/17 04:43 Lymph # 1.3 K/mm3 (1.2-5.4) 04/15/17 04:43 [place] # 0.5 K/mm3 (0.0-0.8) 04/15/17 04:43 Eos # 0.3 K/mm3 (0.0-0.4) 04/15/17 04:43 Baso # 0.1 K/mm3 (0.0-0.1) 04/15/17 04:43 Seg Neutrophils % 69.3 % (40.0-70.0) 04/15/17 04:43 Seg Neutrophils # 4.9 K/mm3 (1.8-7.7) 04/15/17 04:43 Sodium 141 mmol/L (137-145) 04/15/17 04:43 Potassium 4.8 mmol/L (3.6-5.0) 04/15/17 04:43 Chloride 99.3 mmol/L (98-107) 04/15/17 04:43 Carbon Dioxide 33 mmol/L (22-30) H D 04/15/17 04:43 Anion Gap 14 mmol/L 04/15/17 04:43 BUN 23 mg/dL (7-17) H 04/15/17 04:43 Creatinine 3.1 mg/dL (0.7-1.2) H 04/15/17 04:43 Estimated GFR 15 ml/min 04/15/17 04:43 BUN/Creatinine Ratio 7 % 04/15/17 04:43 Glucose 62 mg/dL (65-100) L 04/15/17 04:43 POC Glucose 211 (70-105) H 04/15/17 12:45 Calcium 8.8 mg/dL (8.4-10.2) 04/15/17 04:43 Total Creatine Kinase 146 units/L (30-135) H 04/14/17 06:29 CK-MB (CK-2) 5.5 ng/mL (0.0-4.0) H 04/14/17 06:29 CK-MB (CK-2) Rel Index 3.7 (0-4) 04/14/17 06:29 Troponin T 0.552 ng/mL (0.00-0.029) H* 04/14/17 15:19 NT-Pro-B Natriuret Pep 07113 pg/mL (0-900) H 04/14/17 06:29 Triglycerides 149 mg/dL (2-149) 04/14/17 02:14 Cholesterol 194 mg/dL (50-199) 04/14/17 02:14 LDL Cholesterol Direct 85 mg/dL (50-130) 04/14/17 02:14 HDL Cholesterol 80 mg/dL (40-59) H 04/14/17 02:14 Cholesterol/HDL Ratio 2.42 % 04/14/17 02:14 Urine Color Yellow (Yellow) 04/14/17 02:02 Urine Turbidity Clear (Clear) 04/14/17 02:02 Urine pH 7.0 (5.0-7.0) 04/14/17 02:02 Ur Specific [place] 1.011 (1.003-1.030) 04/14/17 02:02 Urine Protein >500 mg/dL (Negative) 04/14/17 02:02 Urine Glucose (UA) >=500 mg/dL (Negative) 04/14/17 02:02 Urine Ketones Neg mg/dL (Negative) 04/14/17 02:02 Urine Blood Neg (Negative) 04/14/17 02:02 Urine Nitrite Neg (Negative) 04/14/17 02:02 Urine Bilirubin Neg (Negative) 04/14/17 02:02 Urine Urobilinogen < 2.0 mg/dL (<2.0) 04/14/17 02:02 Ur Leukocyte Esterase Neg (Negative) 04/14/17 02:02 Urine WBC (Auto) < 1.0 /HPF (0.0-6.0) 04/14/17 02:02 Urine RBC (Auto) 3.0 /HPF (0.0-6.0) 04/14/17 02:02 U Epithel Cells (Auto) < 1.0 /HPF (0-13.0) 04/14/17 02:02
[2017-04-15] MEDS: SODIUM BICARBONATE PO SCH (20:18)
[2017-04-15] MEDS: BUMEX PO SCH (21:46)
[2017-04-15] MEDS: APRESOLINE PO SCH (21:47)
[2017-04-15] MEDS: PRAVACHOL PO SCH (21:47)
[2017-04-15] MEDS: LOPRESSOR PO SCH (21:47)
[2017-04-15] MEDS ORDERED: BUMETANIDE 1 MG PO SCH (22:00)
--- NOTE | 2017-04-15 22:48 | Event Note ---
Date: 04/15/[address] Hendrickson thank you for asking us to participate in the care of this patient. Full consultation dictated. Consultation dictation number: [id number].. Impression: 1. Shortness of breath 2. ESRD on hemodialysis. 3. Hypertension 4. CAD 5. Peripheral vascular disease. 6. Sepsis. PLAN: 1. O2 2 litres via nasal canula 2. ABGs on room air. 3. Albuterol/atrovent aerosol treatments q 6 hours. 4. Continue s/c lovenox. 5. Continue protonix. 6. Patient is on Levaquine.
[2017-04-16] MEDS: APRESOLINE PO SCH ×3 (05:09→22:53)
[2017-04-16 06:18] LABS: Calcium 8.8 mg/dL (8.4-10.2); Chloride 99.1 mmol/L (98-107); Potassium 3.7 mmol/L (3.6-5.0)
[2017-04-16] MEDS: PROTONIX PO SCH (10:06)
[2017-04-16] MEDS: SODIUM BICARBONATE PO SCH ×3 (10:06→22:53)
[2017-04-16] MEDS: LOPRESSOR PO SCH ×2 (10:06→22:54)
[2017-04-16] MEDS: ASPIRIN PO SCH (10:06)
[2017-04-16] MEDS: LOVENOX SUB-Q SCH (10:06)
[2017-04-16 10:14] LABS: ISTAT Base Excess 7; ISTAT DEVICE 0; ISTAT HCO3 31.2; ISTAT PCO2 46.7 (35-45); ISTAT PH 7.433 (7.35-7.45); ISTAT PO2 60 (80-105); ISTAT SO2 91; ISTAT TCO2 33
--- NOTE | 2017-04-16 11:11 | Progress Note ---
Assessment and Plan Volume overload ESRD on dialysis Diabetes Hypertension Hyperlipidemia Elevated troponin, chronic Conservative cardiac management. Subjective Date of service: 04/16/17 Principal diagnosis: ESRD, volume overload Interval history: Patient denies chest pain and shortness of breath. Objective Vital Signs Temp Pulse Resp BP Pulse Ox 04/16/17 10:06 77 154/49 04/16/17 08:27 96 04/16/17 08:03 100 04/16/17 07:37 98.7 F 19 154/49 04/16/17 05:09 77 176/58 04/16/17 04:20 98.3 F 77 18 176/58 100 04/15/17 23:41 97.9 F 73 18 141/37 100 04/15/17 22:44 18 04/15/17 21:47 89 107/43 04/15/17 19:39 98.0 F 89 18 107/43 99 04/15/17 19:20 89 04/15/17 12:40 98.4 F 85 20 127/54 100 04/15/17 12:00 78 - Physical Examination General: Appears Well, No Apparent Distress HEENT: Positive: PERRL Cardiac: Positive: Reg Rate and Rhythm Lungs: Positive: Decreased Breath Sounds Neuro: Positive: Grossly Intact Extremities: Absent: edema - Labs and Meds Comprehensive Metabolic Panel 04/16/17 Range/Units 04:42 Sodium 140 (137-145) mmol/L Potassium 3.7 D (3.6-5.0) mmol/L Chloride 99.1 (98-107) mmol/L Carbon Dioxide 28 (22-30) mmol/L BUN 17 (7-17) mg/dL Creatinine 3.1 H (0.7-1.2) mg/dL Glucose 95 (65-100) mg/dL Calcium 8.8 (8.4-10.2) mg/dL - Imaging and Cardiology EKG: image reviewed
[2017-04-16] MEDS ORDERED: NACL 0.9% 100 ML IV PRN ×2 (12:18→12:22)
--- NOTE | 2017-04-16 12:21 | Progress Note ---
Assessment and Plan (1) ESRD (end stage renal disease) on dialysis Current Visit: No Status: Acute Plan to address problem: s/p HD yesterday. Hemodialysis again today volume removal. CXR congested. Plan for HD again tomorrow. Right IJ perm-catheter functional Fluid restriction of 1 liter per day Assess dialysis needs daily Obtain dialy weights Monitor I/O's Assess dialysis needs daily (2) Hypertension Current Visit: No Status: Acute Plan to address problem: Hemodialysis again today with UF Continue on anti-hypertensive agents (3) Acute respiratory failure Current Visit: No Status: Acute Plan to address problem: Hemodialysis again today (4) Volume overload Current Visit: No Status: Acute Plan to address problem: Hemdodialysis again today with UF, CXR still congested. Plan for HD again tomorrow. Fluid restriction of 1 liter per day (5) Anemia of chronic disease due to ESRD: Current Visit: No Status: Acute Plan to address problem: Epogen to keep Hg 10-12 Transfuse PRN per primary Subjective Date of service: 04/16/17 Principal diagnosis: ESRD, volume overload Interval history: Denies CP/SHOB. Objective - Exam Narrative Exam: General appearance: well-developed, appears stated age EENT: ATNC, PERRL, hearing intact, vision intact Neck: no JVD, supple Respiratory: Present: BL Crackles Cardiology: regular, S1S2 Gastrointestinal: normoactive bowel sounds Integumentary: other (bruising to abdominal area) Neurologic: alert and oriented x3 Musculoskeletal: joint swelling, BLE edema Psychiatric: mood/affect appropriate - Vital Signs Vital signs: Vital Signs - 12hr 04/16/17 04/16/17 04/16/17 04:20 05:09 07:37 Temperature 98.3 F 98.7 F Pulse Rate 77 77 Respiratory 18 19 Rate Blood Pressure 176/58 176/58 154/49 O2 Sat by Pulse 100 Oximetry 04/16/17 04/16/17 04/16/17 08:03 08:27 10:00 Temperature Pulse Rate 77 Respiratory Rate Blood Pressure O2 Sat by Pulse 100 96 Oximetry 04/16/17 10:06 Temperature Pulse Rate 77 Respiratory Rate Blood Pressure 154/49 O2 Sat by Pulse Oximetry - Lab 04/15/17 04:43 04/16/17 04:42 Most recent lab results Calcium 8.8 mg/dL (8.4-10.2) 04/16/17 04:42
--- NOTE | 2017-04-16 13:05 | XRay Report ---
AP CHEST :04/16/17 CLINICAL: Followup congestion. COMPARISON:04/14/17 FINDINGS: A right Vas-Cath is unchanged with the tip at the cavoatrial junction. The lungs are better expanded than on the prior exam. However, bilateral opacities with silhouetting of the diaphragm and opacification costophrenic angles. Bands of subsegmental atelectasis in the lingula. Cardiomegaly and redistribution of pulmonary blood flow to the upper lobes. IMPRESSION: CHF with probable bilateral pleural effusions and bibasal atelectasis. Cardiomegaly and pulmonary venous hypertension.Suspect bibasal pulmonary edema. Little change compared to the prior exam.
[2017-04-16 13:12] LABS: Basophils % (Auto) 1.4 % (0.0-1.8); Eosinophils % (Auto) 4.1 % (0.0-4.3); Hematocrit 25.2 % (30.3-42.9); Hemoglobin 8.3 gm/dl (10.1-14.3); Mean Corpuscular HGB Conc 33 % (30-34); Mean Corpuscular Hemoglobin 29 pg (28-32); Mean Corpuscular Volume 89 fl (79-97); Platelet Count 187 K/mm3 (140-440); Red Blood Count 2.82 M/mm3 (3.65-5.03); Red Cell Distribution Width 14.3 % (13.2-15.2); White Blood Count 7.2 K/mm3 (4.5-11.0)
[2017-04-16] MEDS: BUMEX PO SCH ×2 (13:13→22:53)
[2017-04-16] MEDS ORDERED: PROCRIT SUB-Q ONE (13:21)
--- NOTE | 2017-04-16 15:28 | Progress Note ---
Assessment and Plan Assessment and plan: Acute hypoxic respiratory failure Fluid overload ESRD on hemodialysis Acute on chronic systolic CHF History of CAD Hyperlipidemia Left sided pleural effusion - patient was on BiPAP yesterday, and she is on [place] oxygen today - Hemodialysis per nephrology - Cardiology recommended no further workup at this time - Continue appropriate home medications - Pulmonary consulted for pleural effusion DVT prophylaxis - Heparin Disposition - Continue inpatient care. History Interval history: patient's SOB is getting better, off BIPAP and currently on [place] oxygen. Hospitalist Physical - Physical exam Narrative exam: In mild cardiopulmonary distress. The patient appeared well nourished and normally developed. Vital signs as documented. Head exam is unremarkable. No scleral icterus . Neck is without jugular venous distension, thyromegaly, or carotid bruits. Lungs are clear to auscultation. Cardiac exam reveals regular rate and Rhythm. First and second heart sounds normal. No murmurs, rubs or gallops. Abdominal exam reveals normal bowel sounds, no masses, no organomegaly and no aortic enlargement. Extremities +2 pedal and pretibial edema. CYCLE COUNTER: Alert and oriented 3. No focal weakness. - Constitutional Vitals: Temp Pulse Resp BP Pulse Ox 98.6 F 79 19 160/61 100 04/16/17 11:41 04/16/17 13:13 04/16/17 11:41 04/16/17 13:13 04/16/17 11:41 General appearance: Present: no acute distress Results - Labs CBC & Chem 7: 04/16/17 12:55 04/16/17 04:42 Labs: Laboratory Last Values WBC 7.2 K/mm3 (4.5-11.0) 04/16/17 12:55 RBC 2.82 M/mm3 (3.65-5.03) L 04/16/17 12:55 Hgb 8.3 gm/dl (10.1-14.3) L 04/16/17 12:55 Hct 25.2 % (30.3-42.9) L 04/16/17 12:55 MCV 89 fl (79-97) 04/16/17 12:55 MCH 29 pg (28-32) 04/16/17 12:55 MCHC 33 % (30-34) 04/16/17 12:55 RDW 14.3 % (13.2-15.2) 04/16/17 12:55 Plt Count 187 K/mm3 (140-440) 04/16/17 12:55 Lymph % (Auto) 25.7 % (13.4-35.0) 04/16/17 12:55 [place] % (Auto) 8.6 % (0.0-7.3) H 04/16/17 12:55 Eos % (Auto) 4.1 % (0.0-4.3) 04/16/17 12:55 Baso % (Auto) 1.4 % (0.0-1.8) 04/16/17 12:55 Lymph # 1.8 K/mm3 (1.2-5.4) 04/16/17 12:55 [place] # 0.6 K/mm3 (0.0-0.8) 04/16/17 12:55 Eos # 0.3 K/mm3 (0.0-0.4) 04/16/17 12:55 Baso # 0.1 K/mm3 (0.0-0.1) 04/16/17 12:55 Seg Neutrophils % 60.2 % (40.0-70.0) 04/16/17 12:55 Seg Neutrophils # 4.3 K/mm3 (1.8-7.7) 04/16/17 12:55 POC ABG pH 7.433 (7.35-7.45) 04/16/17 08:45 POC ABG pCO2 46.7 (35-45) H 04/16/17 08:45 POC ABG pO2 60 (80-105) L 04/16/17 08:45 POC ABG HCO3 31.2 04/16/17 08:45 POC ABG Total CO2 33 04/16/17 08:45 POC ABG O2 Sat 91 04/16/17 08:45 POC ABG Base Excess 7 04/16/17 08:45 FiO2 21 % 04/16/17 08:45 Sodium 140 mmol/L (137-145) 04/16/17 04:42 Potassium 3.7 mmol/L (3.6-5.0) D 04/16/17 04:42 Chloride 99.1 mmol/L (98-107) 04/16/17 04:42 Carbon Dioxide 28 mmol/L (22-30) 04/16/17 04:42 Anion Gap 17 mmol/L 04/16/17 04:42 BUN 17 mg/dL (7-17) 04/16/17 04:42 Creatinine 3.1 mg/dL (0.7-1.2) H 04/16/17 04:42 Estimated GFR 15 ml/min 04/16/17 04:42 BUN/Creatinine Ratio 5 % 04/16/17 04:42 Glucose 95 mg/dL (65-100) 04/16/17 04:42 POC Glucose 68 (70-105) L 04/15/17 21:10 Calcium 8.8 mg/dL (8.4-10.2) 04/16/17 04:42 Total Creatine Kinase 146 units/L (30-135) H 04/14/17 06:29 CK-MB (CK-2) 5.5 ng/mL (0.0-4.0) H 04/14/17 06:29 CK-MB (CK-2) Rel Index 3.7 (0-4) 04/14/17 06:29 Troponin T 0.552 ng/mL (0.00-0.029) H* 04/14/17 15:19 NT-Pro-B Natriuret Pep 43898 pg/mL (0-900) H 04/14/17 06:29 Triglycerides 149 mg/dL (2-149) 04/14/17 02:14 Cholesterol 194 mg/dL (50-199) 04/14/17 02:14 LDL Cholesterol Direct 85 mg/dL (50-130) 04/14/17 02:14 HDL Cholesterol 80 mg/dL (40-59) H 04/14/17 02:14 Cholesterol/HDL Ratio 2.42 % 04/14/17 02:14 Urine Color Yellow (Yellow) 04/14/17 02:02 Urine Turbidity Clear (Clear) 04/14/17 02:02 Urine pH 7.0 (5.0-7.0) 04/14/17 02:02 Ur Specific [place] 1.011 (1.003-1.030) 04/14/17 02:02 Urine Protein >500 mg/dL (Negative) 04/14/17 02:02 Urine Glucose (UA) >=500 mg/dL (Negative) 04/14/17 02:02 Urine Ketones Neg mg/dL (Negative) 04/14/17 02:02 Urine Blood Neg (Negative) 04/14/17 02:02 Urine Nitrite Neg (Negative) 04/14/17 02:02 Urine Bilirubin Neg (Negative) 04/14/17 02:02 Urine Urobilinogen < 2.0 mg/dL (<2.0) 04/14/17 02:02 Ur Leukocyte Esterase Neg (Negative) 04/14/17 02:02 Urine WBC (Auto) < 1.0 /HPF (0.0-6.0) 04/14/17 02:02 Urine RBC (Auto) 3.0 /HPF (0.0-6.0) 04/14/17 02:02 U Epithel Cells (Auto) < 1.0 /HPF (0-13.0) 04/14/17 02:02
[2017-04-16] MEDS ORDERED: LEVAQUIN 500MG/100ML 500 MG/100 ML BAG IV SCH (16:00)
--- NOTE | 2017-04-16 18:44 | Progress Note ---
Assessment and Plan Patient undergoing Hemodialysis.Patient says breathing better. No complaint of chest pain or shortness of breath to day.O2 saturation 96% on 2 litres O2. - Patient Problems (1) Acute respiratory failure Current Visit: No Status: Acute Plan to address problem: O2 2 litres via nasal canula. Albuterol/atrovent aerosol treatments q 6 hours. (2) Pleural effusion due to CHF (congestive heart failure) Current Visit: Yes Status: Acute Plan to address problem: Obtaining Ultrasound of chest. (3) Acute congestive heart failure Current Visit: Yes Status: Acute Qualifiers: Congestive heart failure type: unspecified congestive heart failure type Qualified Code(s): I50.9 - Heart failure, unspecified Plan to address problem: Management as per cardiologiy (4) Coronary artery disease Current Visit: No Status: Acute Plan to address problem: Management as per cardiology (5) Diabetes mellitus Current Visit: No Status: Acute Plan to address problem: Management as per primary care. (6) ESRD (end stage renal disease) on dialysis Current Visit: No Status: Acute Plan to address problem: Management as per nephrology Patient is on hemodialysis. (7) Morbid obesity Current Visit: No Status: Acute Plan to address problem: Consult nuclear powerplant mechanic for weight reduction diet. Recommend sleep study as out patient. Subjective Date of service: 04/16/17 Principal diagnosis: ESRD, volume overload Interval history: Patient undergoing Hemodialysis.Patient says breathing better. No complaint of chest pain or shortness of breath to day.O2 saturation 96% on 2 litres O2. Objective Vital Signs - 12hr 04/16/17 04/16/17 04/16/17 07:37 08:03 08:27 Temperature 98.7 F Pulse Rate Respiratory 19 Rate Blood Pressure 154/49 O2 Sat by Pulse 100 96 Oximetry 04/16/17 04/16/17 04/16/17 10:00 10:06 11:41 Temperature 98.6 F Pulse Rate 77 77 79 Respiratory 19 Rate Blood Pressure 154/49 160/61 O2 Sat by Pulse 100 Oximetry 04/16/17 13:13 Temperature Pulse Rate 79 Respiratory Rate Blood Pressure 160/61 O2 Sat by Pulse Oximetry Constitutional: no acute distress, alert Eyes: non-icteric Neck: supple Ascultation: Bilateral: diminished breath sounds Cardiovascular: regular rate and rhythm Gastrointestinal: normoactive bowel sounds, soft, non-tender Integumentary: normal Extremities: no cyanosis, no edema Neurologic: normal mental status, non-focal exam, pupils equal and round, CN II- XII normal Psychiatric: mood appropriate CBC and BMP: 04/16/17 12:55 04/16/17 04:42 ABG, PT/INR, D-dimer: ABG POC ABG pH 7.433 (7.35-7.45) 04/16/17 08:45 POC ABG pCO2 46.7 (35-45) H 04/16/17 08:45 POC ABG pO2 60 (80-105) L 04/16/17 08:45 POC ABG HCO3 31.2 04/16/17 08:45 POC ABG Total CO2 33 04/16/17 08:45 POC ABG O2 Sat 91 04/16/17 08:45 Abnormal lab findings: Abnormal Labs 04/14/17 04/14/17 04/14/17 02:14 02:14 04:17 WBC 11.6 H RBC 2.98 L Hgb 8.7 L Hct 26.4 L Lymph % (Auto) 10.4 L [place] % (Auto) Seg Neutrophils % 82.0 H Seg Neutrophils # 9.5 H POC ABG pCO2 POC ABG pO2 Chloride 97.8 L Carbon Dioxide BUN 50 H Creatinine 4.6 H Glucose 179 H POC Glucose Total Creatine Kinase CK-MB (CK-2) Troponin T 0.536 H* 0.513 H* NT-Pro-B Natriuret Pep HDL Cholesterol 80 H 04/14/17 04/14/17 04/14/17 06:29 06:29 09:00 WBC RBC Hgb Hct Lymph % (Auto) [place] % (Auto) Seg Neutrophils % Seg Neutrophils # POC ABG pCO2 POC ABG pO2 Chloride Carbon Dioxide BUN Creatinine Glucose POC Glucose 121 H Total Creatine Kinase 146 H CK-MB (CK-2) 5.5 H Troponin T 0.499 H* NT-Pro-B Natriuret Pep 00868 H HDL Cholesterol 04/14/17 04/14/17 04/14/17 15:19 16:46 20:39 WBC RBC Hgb Hct Lymph % (Auto) [place] % (Auto) Seg Neutrophils % Seg Neutrophils # POC ABG pCO2 POC ABG pO2 Chloride Carbon Dioxide BUN Creatinine Glucose POC Glucose 181 H 205 H Total Creatine Kinase CK-MB (CK-2) Troponin T 0.552 H* NT-Pro-B Natriuret Pep HDL Cholesterol 04/15/17 04/15/17 04/15/17 04:43 04:43 12:45 WBC RBC 2.75 L Hgb 7.9 L Hct 24.5 L Lymph % (Auto) [place] % (Auto) 7.5 H Seg Neutrophils % Seg Neutrophils # POC ABG pCO2 POC ABG pO2 Chloride Carbon Dioxide 33 H D BUN 23 H Creatinine 3.1 H Glucose 62 L POC Glucose 211 H Total Creatine Kinase CK-MB (CK-2) Troponin T NT-Pro-B Natriuret Pep HDL Cholesterol 04/15/17 04/16/17 04/16/17 21:10 04:42 08:45 WBC RBC Hgb Hct Lymph % (Auto) [place] % (Auto) Seg Neutrophils % Seg Neutrophils # POC ABG pCO2 46.7 H POC ABG pO2 60 L Chloride Carbon Dioxide BUN Creatinine 3.1 H Glucose POC Glucose 68 L Total Creatine Kinase CK-MB (CK-2) Troponin T NT-Pro-B Natriuret Pep HDL Cholesterol 04/16/17 04/16/17 11:48 12:55 WBC RBC 2.82 L Hgb 8.3 L Hct 25.2 L Lymph % (Auto) [place] % (Auto) 8.6 H Seg Neutrophils % Seg Neutrophils # POC ABG pCO2 POC ABG pO2 Chloride Carbon Dioxide BUN Creatinine Glucose POC Glucose 128 H Total Creatine Kinase CK-MB (CK-2) Troponin T NT-Pro-B Natriuret Pep HDL Cholesterol Chest x-ray: report reviewed (CHF ,Bilateral pleural effusions and atelectasis) , image reviewed
[2017-04-16] MEDS ORDERED: NACL 0.9 (PRIMING MACHINE ONLY DIALYSIS) MC ONE (20:28)
[2017-04-16] MEDS: HEPARIN IV PRN (21:08)
[2017-04-16] MEDS: LEVAQUIN PO SCH (22:53)
[2017-04-16] MEDS: PRAVACHOL PO SCH (22:53)
[2017-04-17] MEDS: APRESOLINE PO SCH ×3 (05:47→21:33)
[2017-04-17 06:06] LABS: Basophils % (Auto) 1.2 % (0.0-1.8); Eosinophils % (Auto) 3.7 % (0.0-4.3); Hematocrit 28.8 % (30.3-42.9); Hemoglobin 9.6 gm/dl (10.1-14.3); Mean Corpuscular HGB Conc 33 % (30-34); Mean Corpuscular Hemoglobin 30 pg (28-32); Mean Corpuscular Volume 88 fl (79-97); Platelet Count 186 K/mm3 (140-440); Red Blood Count 3.27 M/mm3 (3.65-5.03); Red Cell Distribution Width 14.5 % (13.2-15.2); White Blood Count 7.2 K/mm3 (4.5-11.0)
[2017-04-17 06:19] LABS: Calcium 8.3 mg/dL (8.4-10.2); Chloride 97.1 mmol/L (98-107); Potassium 3.6 mmol/L (3.6-5.0)
[2017-04-17] MEDS: SODIUM BICARBONATE PO SCH ×3 (08:17→21:32)
[2017-04-17] MEDS: LOVENOX SUB-Q SCH (09:22)
[2017-04-17] MEDS: ASPIRIN PO SCH (09:22)
[2017-04-17] MEDS: PROTONIX PO SCH (09:22)
--- NOTE | 2017-04-17 09:23 | Progress Note ---
Assessment and Plan Volume overload Bilateral Plueral effusions ESRD on dialysis Diabetes Hypertension Hyperlipidemia Elevated troponin, chronic Echocardiogram reports a mild decreased systolic function, EF 40-45% done 2016. Conservative cardiac management. Subjective Date of service: 04/17/17 Principal diagnosis: ESRD, volume overload Interval history: Patient denies chest pain and shortness of breath. Objective Vital Signs Temp Pulse Resp BP BP Pulse Ox 04/17/17 08:16 98.0 F 80 17 159/48 100 04/17/17 08:07 77 04/17/17 07:34 98.0 F 80 17 159/48 100 04/17/17 05:47 72 163/42 04/17/17 04:33 98.1 F 73 18 163/42 100 04/17/17 00:20 98.9 F 77 20 111/42 100 04/16/17 23:00 20 04/16/17 22:54 76 117/81 04/16/17 22:53 117/81 04/16/17 22:00 78 99 04/16/17 21:24 98.3 F 78 18 117/81 100 04/16/17 20:15 98.0 F 76 18 150/68 04/16/17 20:05 74 122/58 04/16/17 19:45 74 102/54 04/16/17 19:30 74 110/54 04/16/17 19:15 76 114/54 04/16/17 19:00 74 110/56 04/16/17 18:45 74 120/56 04/16/17 18:30 74 128/58 04/16/17 18:15 74 114/40 04/16/17 18:00 74 114/56 04/16/17 17:45 74 116/42 04/16/17 17:30 72 100/52 04/16/17 17:15 74 116/58 04/16/17 17:00 68 136/64 04/16/17 16:45 72 130/56 04/16/17 16:35 98.3 F 74 18 150/70 04/16/17 13:13 79 160/61 04/16/17 11:41 98.6 F 79 19 160/61 100 04/16/17 10:06 77 154/49 04/16/17 10:00 77 - Physical Examination General: Appears Well, No Apparent Distress HEENT: Positive: PERRL Cardiac: Positive: Reg Rate and Rhythm Lungs: Positive: Decreased Breath Sounds Neuro: Positive: Grossly Intact - Labs and Meds CBC 04/16/17 04/17/17 Range/Units 12:55 05:12 WBC 7.2 7.2 (4.5-11.0) K/mm3 RBC 2.82 L 3.27 L (3.65-5.03) M/mm3 Hgb 8.3 L 9.6 L (10.1-14.3) gm/dl Hct 25.2 L 28.8 L (30.3-42.9) % Plt Count 187 186 (140-440) K/mm3 Lymph # 1.8 1.3 (1.2-5.4) K/mm3 [place] # 0.6 0.6 (0.0-0.8) K/mm3 Eos # 0.3 0.3 (0.0-0.4) K/mm3 Baso # 0.1 0.1 (0.0-0.1) K/mm3 Comprehensive Metabolic Panel 04/17/17 Range/Units 05:12 Sodium 136 L (137-145) mmol/L Potassium 3.6 (3.6-5.0) mmol/L Chloride 97.1 L (98-107) mmol/L Carbon Dioxide 27 (22-30) mmol/L BUN 10 (7-17) mg/dL Creatinine 2.4 H (0.7-1.2) mg/dL Glucose 124 H (65-100) mg/dL Calcium 8.3 L (8.4-10.2) mg/dL - Imaging and Cardiology EKG: image reviewed
[2017-04-17] MEDS: BUMEX PO SCH ×2 (09:42→21:32)
[2017-04-17] MEDS: LOPRESSOR PO SCH ×2 (09:42→21:32)
--- NOTE | 2017-04-17 11:47 | Progress Note ---
Assessment and Plan (1) ESRD (end stage renal disease) on dialysis Current Visit: No Status: Acute Plan to address problem: s/p extra HD yesterday for congested CXR. Pt gets HD TTS outpatient. Plan for HD tommorow, Will order TTS HD inpatient but will eval daily. Right IJ perm-catheter functional Fluid restriction of 1 liter per day Assess dialysis needs daily Obtain dialy weights Monitor I/O's Assess dialysis needs daily (2) Hypertension Current Visit: No Status: Acute Plan to address problem: Hemodialysis again today with UF Continue on anti-hypertensive agents (3) Acute respiratory failure Current Visit: No Status: Acute Plan to address problem: Hemodialysis again today (4) Volume overload Current Visit: No Status: Acute Plan to address problem: Hemdodialysis again today with UF, CXR still congested. Plan for HD again tomorrow. Fluid restriction of 1 liter per day (5) Anemia of chronic disease due to ESRD: Current Visit: No Status: Acute Plan to address problem: Epogen to keep Hg 10-12 Transfuse PRN per primary Sánchez Carmona MD Nephrology, Hypertension, Dialysis, Transplantation Phone no: [phone] Subjective Date of service: 04/17/17 Principal diagnosis: ESRD, volume overload Interval history: Denies CP/SHOB. Seen on HD. Objective - Exam Narrative Exam: General appearance: well-developed, appears stated age EENT: ATNC, PERRL, hearing intact, vision intact Neck: no JVD, supple Respiratory: Present: BL Crackles Cardiology: regular, S1S2 Gastrointestinal: normoactive bowel sounds Integumentary: other (bruising to abdominal area) Neurologic: alert and oriented x3 Musculoskeletal: joint swelling, BLE edema Psychiatric: mood/affect appropriate - Vital Signs Vital signs: Vital Signs - 12hr 04/17/17 04/17/17 04/17/17 00:20 04:33 05:47 Temperature 98.9 F 98.1 F Pulse Rate 77 73 72 Pulse Rate [ From Monitor] Respiratory 20 18 Rate Blood Pressure 111/42 163/42 163/42 Blood Pressure [Right] O2 Sat by Pulse 100 100 Oximetry 04/17/17 04/17/17 04/17/17 07:34 08:07 08:16 Temperature 98.0 F 98.0 F Pulse Rate 80 77 80 Pulse Rate [ From Monitor] Respiratory 17 17 Rate Blood Pressure 159/48 Blood Pressure 159/48 [Right] O2 Sat by Pulse 100 100 Oximetry 04/17/17 04/17/17 09:42 09:43 Temperature Pulse Rate 80 Pulse Rate [ 80 From Monitor] Respiratory 17 Rate Blood Pressure 159/48 Blood Pressure [Right] O2 Sat by Pulse 100 Oximetry - Lab 04/17/17 05:12 04/17/17 05:12 Most recent lab results Calcium 8.3 mg/dL (8.4-10.2) L 04/17/17 05:12
[2017-04-17] MEDS ORDERED: NACL 0.9% 100 ML IV PRN (12:34)
--- NOTE | 2017-04-17 13:27 | Consultation ---
CONSULTED BY: Lewis Hendrickson MD WELLNESS COORDINATOR: Ed Moncada MD. REASON FOR CONSULTATION: Shortness of breath and possible sepsis. HISTORY OF PRESENT ILLNESS: This is a 61-year-old female, history of hypertension, end-stage renal disease and on hemodialysis. The patient missed her hemodialysis on . The patient came to the Emergency Room with shortness of breath. The patient has a history of hypertension, end-stage renal disease, coronary artery disease. The patient also complains some left-sided substernal pressure. The patient denies any cough or productive sputum. She denies any nasal congestion. She denies any fever or chills. She denies any weight loss. The patient has no history of smoking, alcohol or drug abuse. The patient's shortness of breath getting worse on lying flat. This patient's chest x-ray reported stable pulmonary vascular congestion with air space disease in both lung basis and effusions has been reported. LABORATORY DATA: The patient's CBC: WBC 11.6, hemoglobin 8.7, hematocrit 26.4, platelet count 192,000. The patient's BMP: Sodium 139, potassium 4.1, creatinine 4.6, BUN 50 and CPK-MB 5.5, . The patient's cholesterol is 194. PHYSICAL EXAMINATION: GENERAL: She is obese, resting on nasal cannula. No acute respiratory distress at this time. NECK: Supple, short. HEENT: Pupils are equal and reactive. Extraocular muscles intact. HEART: Regular rate and rhythm. LUNGS: Decreased breath sounds at the bases. ABDOMEN: Obese, soft, bowel sounds present. No CVA tenderness. MUSCULOSKELETAL: No edema or trace edema, no clubbing, no cyanosis. NEUROLOGIC: Babinski negative. No focal neurological deficits. IMPRESSION: 1. Shortness of breath. 2. End-stage renal disease, on hemodialysis. 3. Hypertension. 4. Coronary artery disease. 5. Peripheral vascular disease. 6. Sepsis. PLAN: 1. O2 two liters via nasal cannula. 2. ABGs on room air. 3. Albuterol and Atrovent aerosol treatments q.6 hours. 4. Continue subcutaneous Lovenox. 5. Continue Protonix. 6. The patient is on Levaquin. I want to thank Dr. Hendrickson for this consultation. I will follow the patient with him. JOB# [id number] LUIS ANTONIO/CHIDI
[2017-04-17] MEDS ORDERED: NACL 0.9 (PRIMING MACHINE ONLY DIALYSIS) MC ONE (13:50)
--- NOTE | 2017-04-17 14:56 | XRay Report ---
AP chest x-ray. History: Volume status. Findings: Since the previous study, the pulmonary vessels have returned to normal. There is persistent bibasilar atelectasis and small bilateral pleural effusions with mild cardiomegaly. The Vas-Cath is unchanged in position. Impression: Moderate improvement as described with persistent bilateral small effusions and/or mild bibasilar atelectasis.
[2017-04-17] MEDS: HEPARIN IV PRN (15:50)
--- NOTE | 2017-04-17 16:05 | Progress Note ---
Assessment and Plan Assessment and plan: Acute hypoxic respiratory failure Fluid overload ESRD on hemodialysis Dialysis non compliance Acute on chronic systolic CHF History of CAD Hyperlipidemia Left sided pleural effusion - patient SOB is getting better - Hemodialysis per nephrology today and tomorrow - Cardiology recommended no further workup at this time - Continue appropriate home medications - Pulmonary consulted for pleural effusion, pleural effusion is getting better DVT prophylaxis - Heparin Disposition - Possible DC in 1-2 days History Interval history: patient's SOB is getting better, patient did have chest pain. I have discussed the management with the patient using family member as lang interpreter. Hospitalist Physical - Physical exam Narrative exam: In mild cardiopulmonary distress. The patient appeared well nourished and normally developed. Vital signs as documented. Head exam is unremarkable. No scleral icterus . Neck is without jugular venous distension, thyromegaly, or carotid bruits. Lungs are clear to auscultation. Cardiac exam reveals regular rate and Rhythm. First and second heart sounds normal. No murmurs, rubs or gallops. Abdominal exam reveals normal bowel sounds, no masses, no organomegaly and no aortic enlargement. Extremities +2 pedal and pretibial edema. ON CALL PHARMACY TECHNICIAN: Alert and oriented 3. No focal weakness. - Constitutional Vitals: Temp Pulse Resp BP Pulse Ox 98.2 F 77 16 158/59 100 04/17/17 15:54 04/17/17 15:54 04/17/17 15:54 04/17/17 15:54 04/17/17 09:43 General appearance: Present: no acute distress Results - Labs CBC & Chem 7: 04/17/17 05:12 04/17/17 05:12 Labs: Laboratory Last Values WBC 7.2 K/mm3 (4.5-11.0) 04/17/17 05:12 RBC 3.27 M/mm3 (3.65-5.03) L 04/17/17 05:12 Hgb 9.6 gm/dl (10.1-14.3) L 04/17/17 05:12 Hct 28.8 % (30.3-42.9) L 04/17/17 05:12 MCV 88 fl (79-97) 04/17/17 05:12 MCH 30 pg (28-32) 04/17/17 05:12 MCHC 33 % (30-34) 04/17/17 05:12 RDW 14.5 % (13.2-15.2) 04/17/17 05:12 Plt Count 186 K/mm3 (140-440) 04/17/17 05:12 Lymph % (Auto) 18.3 % (13.4-35.0) 04/17/17 05:12 [place] % (Auto) 8.3 % (0.0-7.3) H 04/17/17 05:12 Eos % (Auto) 3.7 % (0.0-4.3) 04/17/17 05:12 Baso % (Auto) 1.2 % (0.0-1.8) 04/17/17 05:12 Lymph # 1.3 K/mm3 (1.2-5.4) 04/17/17 05:12 [place] # 0.6 K/mm3 (0.0-0.8) 04/17/17 05:12 Eos # 0.3 K/mm3 (0.0-0.4) 04/17/17 05:12 Baso # 0.1 K/mm3 (0.0-0.1) 04/17/17 05:12 Seg Neutrophils % 68.5 % (40.0-70.0) 04/17/17 05:12 Seg Neutrophils # 4.9 K/mm3 (1.8-7.7) 04/17/17 05:12 POC ABG pH 7.433 (7.35-7.45) 04/16/17 08:45 POC ABG pCO2 46.7 (35-45) H 04/16/17 08:45 POC ABG pO2 60 (80-105) L 04/16/17 08:45 POC ABG HCO3 31.2 04/16/17 08:45 POC ABG Total CO2 33 04/16/17 08:45 POC ABG O2 Sat 91 04/16/17 08:45 POC ABG Base Excess 7 04/16/17 08:45 FiO2 21 % 04/16/17 08:45 Sodium 136 mmol/L (137-145) L 04/17/17 05:12 Potassium 3.6 mmol/L (3.6-5.0) 04/17/17 05:12 Chloride 97.1 mmol/L (98-107) L 04/17/17 05:12 Carbon Dioxide 27 mmol/L (22-30) 04/17/17 05:12 Anion Gap 16 mmol/L 04/17/17 05:12 BUN 10 mg/dL (7-17) 04/17/17 05:12 Creatinine 2.4 mg/dL (0.7-1.2) H 04/17/17 05:12 Estimated GFR 20 ml/min 04/17/17 05:12 BUN/Creatinine Ratio 4 % 04/17/17 05:12 Glucose 124 mg/dL (65-100) H 04/17/17 05:12 POC Glucose 127 (70-105) H 04/16/17 22:16 Calcium 8.3 mg/dL (8.4-10.2) L 04/17/17 05:12 Total Creatine Kinase 146 units/L (30-135) H 04/14/17 06:29 CK-MB (CK-2) 5.5 ng/mL (0.0-4.0) H 04/14/17 06:29 CK-MB (CK-2) Rel Index 3.7 (0-4) 04/14/17 06:29 Troponin T 0.552 ng/mL (0.00-0.029) H* 04/14/17 15:19 NT-Pro-B Natriuret Pep 27472 pg/mL (0-900) H 04/14/17 06:29 Triglycerides 149 mg/dL (2-149) 04/14/17 02:14 Cholesterol 194 mg/dL (50-199) 04/14/17 02:14 LDL Cholesterol Direct 85 mg/dL (50-130) 04/14/17 02:14 HDL Cholesterol 80 mg/dL (40-59) H 04/14/17 02:14 Cholesterol/HDL Ratio 2.42 % 04/14/17 02:14 Urine Color Yellow (Yellow) 04/14/17 02:02 Urine Turbidity Clear (Clear) 04/14/17 02:02 Urine pH 7.0 (5.0-7.0) 04/14/17 02:02 Ur Specific [place] 1.011 (1.003-1.030) 04/14/17 02:02 Urine Protein >500 mg/dL (Negative) 04/14/17 02:02 Urine Glucose (UA) >=500 mg/dL (Negative) 04/14/17 02:02 Urine Ketones Neg mg/dL (Negative) 04/14/17 02:02 Urine Blood Neg (Negative) 04/14/17 02:02 Urine Nitrite Neg (Negative) 04/14/17 02:02 Urine Bilirubin Neg (Negative) 04/14/17 02:02 Urine Urobilinogen < 2.0 mg/dL (<2.0) 04/14/17 02:02 Ur Leukocyte Esterase Neg (Negative) 04/14/17 02:02 Urine WBC (Auto) < 1.0 /HPF (0.0-6.0) 04/14/17 02:02 Urine RBC (Auto) 3.0 /HPF (0.0-6.0) 04/14/17 02:02 U Epithel Cells (Auto) < 1.0 /HPF (0-13.0) 04/14/17 02:02
--- NOTE | 2017-04-17 21:12 | Progress Note ---
Assessment and Plan Patient alert, awake and resting on 2 litres O2..Patient says breathing better. No complaint of chest pain or shortness of breath to day.O2 saturation 100% on 2 litres O2. - Patient Problems (1) Acute respiratory failure Current Visit: No Status: Acute Plan to address problem: O2 2 litres via nasal canula. Albuterol/atrovent aerosol treatments q 6 hours. (2) Pleural effusion due to CHF (congestive heart failure) Current Visit: Yes Status: Acute Plan to address problem: Ultrasound of chest still pending. (3) Acute congestive heart failure Current Visit: Yes Status: Acute Qualifiers: Congestive heart failure type: unspecified congestive heart failure type Qualified Code(s): I50.9 - Heart failure, unspecified Plan to address problem: Management as per cardiologiy (4) Coronary artery disease Current Visit: No Status: Acute Plan to address problem: Management as per cardiology (5) Diabetes mellitus Current Visit: No Status: Acute Plan to address problem: Management as per primary care. (6) ESRD (end stage renal disease) on dialysis Current Visit: No Status: Acute Plan to address problem: Management as per nephrology Patient is on hemodialysis. (7) Morbid obesity Current Visit: No Status: Acute Plan to address problem: Consult inspector raw quartz for weight reduction diet. Recommend sleep study as out patient. Subjective Date of service: 04/17/17 Principal diagnosis: ESRD, volume overload Interval history: Patient alert, awake and resting on 2 litres O2..Patient says breathing better. No complaint of chest pain or shortness of breath to day.O2 saturation 100% on 2 litres O2. Objective Vital Signs - 12hr 04/17/17 04/17/17 04/17/17 09:42 09:43 10:05 Temperature 98.5 F Pulse Rate 80 78 Pulse Rate [ 80 From Monitor] Respiratory 17 16 Rate Blood Pressure 159/48 163/73 O2 Sat by Pulse 100 Oximetry 04/17/17 04/17/17 04/17/17 10:20 10:30 10:45 Temperature Pulse Rate 76 77 82 Pulse Rate [ From Monitor] Respiratory Rate Blood Pressure 157/71 107/52 62/43 O2 Sat by Pulse Oximetry 04/17/17 04/17/17 04/17/17 11:00 11:15 11:30 Temperature Pulse Rate 83 80 77 Pulse Rate [ From Monitor] Respiratory Rate Blood Pressure 69/51 73/35 151/71 O2 Sat by Pulse Oximetry 04/17/17 04/17/17 04/17/17 11:45 12:00 12:15 Temperature Pulse Rate 77 77 77 Pulse Rate [ From Monitor] Respiratory Rate Blood Pressure 171/77 163/48 146/73 O2 Sat by Pulse Oximetry 04/17/17 04/17/17 04/17/17 13:36 15:54 20:19 Temperature 98.2 F 98.4 F Pulse Rate 79 77 82 Pulse Rate [ From Monitor] Respiratory 16 18 Rate Blood Pressure 84/46 158/59 135/59 O2 Sat by Pulse 100 Oximetry Constitutional: no acute distress, alert Eyes: non-icteric Neck: supple Ascultation: Bilateral: diminished breath sounds Cardiovascular: regular rate and rhythm Gastrointestinal: normoactive bowel sounds, soft, non-tender Integumentary: normal Extremities: no cyanosis, no edema Neurologic: normal mental status, non-focal exam, pupils equal and round, CN II- XII normal Psychiatric: mood appropriate CBC and BMP: 04/17/17 05:12 04/17/17 05:12 ABG, PT/INR, D-dimer: ABG POC ABG pH 7.433 (7.35-7.45) 04/16/17 08:45 POC ABG pCO2 46.7 (35-45) H 04/16/17 08:45 POC ABG pO2 60 (80-105) L 04/16/17 08:45 POC ABG HCO3 31.2 04/16/17 08:45 POC ABG Total CO2 33 04/16/17 08:45 POC ABG O2 Sat 91 04/16/17 08:45 Abnormal lab findings: Abnormal Labs 04/14/17 04/14/17 04/14/17 02:14 02:14 04:17 WBC 11.6 H RBC 2.98 L Hgb 8.7 L Hct 26.4 L Lymph % (Auto) 10.4 L [place] % (Auto) Seg Neutrophils % 82.0 H Seg Neutrophils # 9.5 H POC ABG pCO2 POC ABG pO2 Sodium Chloride 97.8 L Carbon Dioxide BUN 50 H Creatinine 4.6 H Glucose 179 H POC Glucose Calcium Total Creatine Kinase CK-MB (CK-2) Troponin T 0.536 H* 0.513 H* NT-Pro-B Natriuret Pep HDL Cholesterol 80 H 04/14/17 04/14/17 04/14/17 06:29 06:29 09:00 WBC RBC Hgb Hct Lymph % (Auto) [place] % (Auto) Seg Neutrophils % Seg Neutrophils # POC ABG pCO2 POC ABG pO2 Sodium Chloride Carbon Dioxide BUN Creatinine Glucose POC Glucose 121 H Calcium Total Creatine Kinase 146 H CK-MB (CK-2) 5.5 H Troponin T 0.499 H* NT-Pro-B Natriuret Pep 08106 H HDL Cholesterol 04/14/17 04/14/17 04/14/17 15:19 16:46 20:39 WBC RBC Hgb Hct Lymph % (Auto) [place] % (Auto) Seg Neutrophils % Seg Neutrophils # POC ABG pCO2 POC ABG pO2 Sodium Chloride Carbon Dioxide BUN Creatinine Glucose POC Glucose 181 H 205 H Calcium Total Creatine Kinase CK-MB (CK-2) Troponin T 0.552 H* NT-Pro-B Natriuret Pep HDL Cholesterol 04/15/17 04/15/17 04/15/17 04:43 04:43 12:45 WBC RBC 2.75 L Hgb 7.9 L Hct 24.5 L Lymph % (Auto) [place] % (Auto) 7.5 H Seg Neutrophils % Seg Neutrophils # POC ABG pCO2 POC ABG pO2 Sodium Chloride Carbon Dioxide 33 H D BUN 23 H Creatinine 3.1 H Glucose 62 L POC Glucose 211 H Calcium Total Creatine Kinase CK-MB (CK-2) Troponin T NT-Pro-B Natriuret Pep HDL Cholesterol 04/15/17 04/16/17 04/16/17 21:10 04:42 08:45 WBC RBC Hgb Hct Lymph % (Auto) [place] % (Auto) Seg Neutrophils % Seg Neutrophils # POC ABG pCO2 46.7 H POC ABG pO2 60 L Sodium Chloride Carbon Dioxide BUN Creatinine 3.1 H Glucose POC Glucose 68 L Calcium Total Creatine Kinase CK-MB (CK-2) Troponin T NT-Pro-B Natriuret Pep HDL Cholesterol 04/16/17 04/16/17 04/16/17 11:48 12:55 22:16 WBC RBC 2.82 L Hgb 8.3 L Hct 25.2 L Lymph % (Auto) [place] % (Auto) 8.6 H Seg Neutrophils % Seg Neutrophils # POC ABG pCO2 POC ABG pO2 Sodium Chloride Carbon Dioxide BUN Creatinine Glucose POC Glucose 128 H 127 H Calcium Total Creatine Kinase CK-MB (CK-2) Troponin T NT-Pro-B Natriuret Pep HDL Cholesterol 04/17/17 04/17/17 05:12 05:12 WBC RBC 3.27 L Hgb 9.6 L Hct 28.8 L Lymph % (Auto) [place] % (Auto) 8.3 H Seg Neutrophils % Seg Neutrophils # POC ABG pCO2 POC ABG pO2 Sodium 136 L Chloride 97.1 L Carbon Dioxide BUN Creatinine 2.4 H Glucose 124 H POC Glucose Calcium 8.3 L Total Creatine Kinase CK-MB (CK-2) Troponin T NT-Pro-B Natriuret Pep HDL Cholesterol
[2017-04-17] MEDS: PRAVACHOL PO SCH (21:32)
[2017-04-18] MEDS: APRESOLINE PO SCH ×3 (05:46→21:43)
[2017-04-18] MEDS: BUMEX PO SCH ×2 (10:05→21:44)
[2017-04-18] MEDS: ASPIRIN PO SCH (10:06)
[2017-04-18] MEDS: LOVENOX SUB-Q SCH (10:06)
[2017-04-18] MEDS: LOPRESSOR PO SCH ×2 (10:07→21:44)
[2017-04-18] MEDS: SODIUM BICARBONATE PO SCH ×3 (10:07→20:45)
[2017-04-18] MEDS: PROTONIX PO SCH (10:08)
--- NOTE | 2017-04-18 10:45 | Ultrasound Report ---
ULTRASOUND CHEST INDICATION: Pleural effusion. COMPARISON: None similar. FINDINGS: Sonographic pleural fluid estimation of approximately 329 mL on the right and 152 mL on the left. CONCLUSION: Small bilateral pleural effusions, as described. Thank you for the opportunity to participate in this patient's care.
--- NOTE | 2017-04-18 10:46 | Progress Note ---
Assessment and Plan (1) ESRD (end stage renal disease) on dialysis Current Visit: No Status: Acute Plan to address problem: Pt gets HD TTS outpatient. s/p HD yesterday, no HD today, will eval for HD need daily. Right IJ perm-catheter functional Fluid restriction of 1 liter per day Assess dialysis needs daily Obtain dialy weights Monitor I/O's Assess dialysis needs daily (2) Hypertension Current Visit: No Status: Acute Plan to address problem: Continue on anti-hypertensive agents (3) Acute respiratory failure Current Visit: No Status: Acute Plan to address problem: Improved. s/p HD yesterday. (4) Volume overload Current Visit: No Status: Acute Plan to address problem: s/p HD yesterday. No HD today. Plan for HD tomorrow. Fluid restriction of 1 liter per day (5) Anemia of chronic disease due to ESRD: Current Visit: No Status: Acute Plan to address problem: Epogen to keep Hg 10-12 Transfuse PRN per primary Sánchez Carmona MD Nephrology, Hypertension, Dialysis, Transplantation Phone no: [phone] Subjective Date of service: 04/18/17 Principal diagnosis: ESRD, volume overload Interval history: Denies CP/SHOB. s/p HD yesterday. Objective - Exam Narrative Exam: General appearance: well-developed, appears stated age EENT: ATNC, PERRL, hearing intact, vision intact Neck: no JVD, supple Respiratory: Present: BL Crackles Cardiology: regular, S1S2 Gastrointestinal: normoactive bowel sounds Integumentary: other (bruising to abdominal area) Neurologic: alert and oriented x3 Musculoskeletal: joint swelling, BLE edema Psychiatric: mood/affect appropriate - Vital Signs Vital signs: Vital Signs - 12hr 04/17/17 04/18/17 04/18/17 23:56 04:22 05:44 Temperature 98.5 F 98.2 F Pulse Rate 79 77 78 Respiratory 18 18 20 Rate Blood Pressure 145/66 139/43 Blood Pressure 149/53 [Right] O2 Sat by Pulse 100 97 Oximetry 04/18/17 04/18/17 04/18/17 05:46 08:29 10:07 Temperature 98.8 F Pulse Rate 77 77 Respiratory 18 Rate Blood Pressure 149/53 146/59 Blood Pressure 146/59 [Right] O2 Sat by Pulse 94 Oximetry - Lab 04/17/17 05:12 04/17/17 05:12 Most recent lab results Calcium 8.3 mg/dL (8.4-10.2) L 04/17/17 05:12
[2017-04-18 13:02] LABS: Calcium 8.6 mg/dL (8.4-10.2)
[2017-04-18 13:03] LABS: Chloride 96.3 mmol/L (98-107)
--- NOTE | 2017-04-18 14:12 | XRay Report ---
PORTABLE CHEST INDICATION: Volume status. COMPARISON: 2:17 PM yesterday. FINDINGS: Portable, frontal chest radiograph, 1:37 PM, 04/18/2017 again demonstrates small hazy bibasilar pleural effusions and mild horizontal atelectasis. No overt CHF. Stable cardiomediastinal silhouette/mild cardiomegaly, dual-lumen right-sided central catheter tip at the cavoatrial junction, EKG leads and bony degenerative changes. CONCLUSION: No significant interval change in small bilateral pleural effusions with other findings, as above. Thank you for the opportunity to participate in this patient's care.
--- NOTE | 2017-04-18 15:27 | Progress Note ---
<SAM PEARSON - Last Filed: 04/19/17 09:54> Assessment and Plan Assessment and plan: Acute hypoxic respiratory failure Fluid overload Resolving, will continue to monitor ESRD on hemodialysis Dialysis non-compliance Hemodialysis per nephrology tomorrow Acute on chronic systolic CHF History of CAD Hyperlipidemia Cardiology recommended no further workup at this time Continue appropriate home medications Bilateral pleural effusion SOB resolved Pulmonology following for pleural effusion DVT prophylaxis Heparin Disposition Possible DC in am History Interval history: Patient is laying in bed resting comfortably. Denies SOB, CP, N/V. Patient has no new complaints at this time Hospitalist Physical - Constitutional Vitals: Temp Pulse Resp BP Pulse Ox 98.2 F 72 18 157/60 100 04/18/17 11:24 04/18/17 14:15 04/18/17 11:24 04/18/17 14:15 04/18/17 11:24 General appearance: Present: no acute distress - EENT Eyes: Present: PERRL, EOM intact ENT: hearing intact, clear oral mucosa, dentition normal - Neck Neck: Present: supple, normal ROM - Respiratory Respiratory effort: normal Respiratory: bilateral: diminished - Cardiovascular Rhythm: regular Heart Sounds: Present: S1 & S2 - Extremities Extremities: no ischemia, No edema Peripheral Pulses: within normal limits - Abdominal General gastrointestinal: soft, non-tender, non-distended - Integumentary Integumentary: Present: clear, warm, dry - Psychiatric Psychiatric: appropriate mood/affect, cooperative - Neurologic Neurologic: CNII-XII intact, moves all extremities - Allied Health Allied health notes reviewed: nursing Results - Labs CBC & Chem 7: 04/17/17 05:12 04/18/17 12:09 Labs: Laboratory Last Values WBC 7.2 K/mm3 (4.5-11.0) 04/17/17 05:12 RBC 3.27 M/mm3 (3.65-5.03) L 04/17/17 05:12 Hgb 9.6 gm/dl (10.1-14.3) L 04/17/17 05:12 Hct 28.8 % (30.3-42.9) L 04/17/17 05:12 MCV 88 fl (79-97) 04/17/17 05:12 MCH 30 pg (28-32) 04/17/17 05:12 MCHC 33 % (30-34) 04/17/17 05:12 RDW 14.5 % (13.2-15.2) 04/17/17 05:12 Plt Count 186 K/mm3 (140-440) 04/17/17 05:12 Lymph % (Auto) 18.3 % (13.4-35.0) 04/17/17 05:12 [place] % (Auto) 8.3 % (0.0-7.3) H 04/17/17 05:12 Eos % (Auto) 3.7 % (0.0-4.3) 04/17/17 05:12 Baso % (Auto) 1.2 % (0.0-1.8) 04/17/17 05:12 Lymph # 1.3 K/mm3 (1.2-5.4) 04/17/17 05:12 [place] # 0.6 K/mm3 (0.0-0.8) 04/17/17 05:12 Eos # 0.3 K/mm3 (0.0-0.4) 04/17/17 05:12 Baso # 0.1 K/mm3 (0.0-0.1) 04/17/17 05:12 Seg Neutrophils % 68.5 % (40.0-70.0) 04/17/17 05:12 Seg Neutrophils # 4.9 K/mm3 (1.8-7.7) 04/17/17 05:12 POC ABG pH 7.433 (7.35-7.45) 04/16/17 08:45 POC ABG pCO2 46.7 (35-45) H 04/16/17 08:45 POC ABG pO2 60 (80-105) L 04/16/17 08:45 POC ABG HCO3 31.2 04/16/17 08:45 POC ABG Total CO2 33 04/16/17 08:45 POC ABG O2 Sat 91 04/16/17 08:45 POC ABG Base Excess 7 04/16/17 08:45 FiO2 21 % 04/16/17 08:45 Sodium 137 mmol/L (137-145) 04/18/17 12:09 Potassium 4.0 mmol/L (3.6-5.0) 04/18/17 12:09 Chloride 96.3 mmol/L (98-107) L 04/18/17 12:09 Carbon Dioxide 27 mmol/L (22-30) 04/18/17 12:09 Anion Gap 18 mmol/L 04/18/17 12:09 BUN 13 mg/dL (7-17) 04/18/17 12:09 Creatinine 3.2 mg/dL (0.7-1.2) H 04/18/17 12:09 Estimated GFR 15 ml/min 04/18/17 12:09 BUN/Creatinine Ratio 4 % 04/18/17 12:09 Glucose 120 mg/dL (65-100) H 04/18/17 12:09 POC Glucose 160 (70-105) H 04/18/17 11: Calcium 8.6 mg/dL (8.4-10.2) 04/18/17 12:09 Total Creatine Kinase 146 units/L (30-135) H 04/14/17 06:29 CK-MB (CK-2) 5.5 ng/mL (0.0-4.0) H 04/14/17 06:29 CK-MB (CK-2) Rel Index 3.7 (0-4) 04/14/17 06:29 Troponin T 0.552 ng/mL (0.00-0.029) H* 04/14/17 15:19 NT-Pro-B Natriuret Pep 62229 pg/mL (0-900) H 04/14/17 06:29 Triglycerides 149 mg/dL (2-149) 04/14/17 02:14 Cholesterol 194 mg/dL (50-199) 04/14/17 02:14 LDL Cholesterol Direct 85 mg/dL (50-130) 04/14/17 02:14 HDL Cholesterol 80 mg/dL (40-59) H 04/14/17 02:14 Cholesterol/HDL Ratio 2.42 % 04/14/17 02:14 Urine Color Yellow (Yellow) 04/14/17 02:02 Urine Turbidity Clear (Clear) 04/14/17 02:02 Urine pH 7.0 (5.0-7.0) 04/14/17 02:02 Ur Specific [place] 1.011 (1.003-1.030) 04/14/17 02:02 Urine Protein >500 mg/dL (Negative) 04/14/17 02:02 Urine Glucose (UA) >=500 mg/dL (Negative) 04/14/17 02:02 Urine Ketones Neg mg/dL (Negative) 04/14/17 02:02 Urine Blood Neg (Negative) 04/14/17 02:02 Urine Nitrite Neg (Negative) 04/14/17 02:02 Urine Bilirubin Neg (Negative) 04/14/17 02:02 Urine Urobilinogen < 2.0 mg/dL (<2.0) 04/14/17 02:02 Ur Leukocyte Esterase Neg (Negative) 04/14/17 02:02 Urine WBC (Auto) < 1.0 /HPF (0.0-6.0) 04/14/17 02:02 Urine RBC (Auto) 3.0 /HPF (0.0-6.0) 04/14/17 02:02 U Epithel Cells (Auto) < 1.0 /HPF (0-13.0) 04/14/17 02:02 - Imaging and Cardiology Chest x-ray: report reviewed (Small pleural effusion) <FATOU MADISON M - Last Filed: 05/30/17 11:33> Hospitalist Physical - Constitutional Vitals: Temp Pulse Resp BP Pulse Ox 98.1 F 75 18 146/54 98 04/20/17 04:37 04/20/17 09:42 04/20/17 08:53 04/20/17 14:42 04/20/17 08:26 Results - Labs CBC & Chem 7: 04/17/17 05:12 04/19/17 15:18 Labs: Laboratory Last Values WBC 7.2 K/mm3 (4.5-11.0) 04/17/17 05:12 RBC 3.27 M/mm3 (3.65-5.03) L 04/17/17 05:12 Hgb 9.6 gm/dl (10.1-14.3) L 04/17/17 05:12 Hct 28.8 % (30.3-42.9) L 04/17/17 05:12 MCV 88 fl (79-97) 04/17/17 05:12 MCH 30 pg (28-32) 04/17/17 05:12 MCHC 33 % (30-34) 04/17/17 05:12 RDW 14.5 % (13.2-15.2) 04/17/17 05:12 Plt Count 186 K/mm3 (140-440) 04/17/17 05:12 Lymph % (Auto) 18.3 % (13.4-35.0) 04/17/17 05:12 [place] % (Auto) 8.3 % (0.0-7.3) H 04/17/17 05:12 Eos % (Auto) 3.7 % (0.0-4.3) 04/17/17 05:12 Baso % (Auto) 1.2 % (0.0-1.8) 04/17/17 05:12 Lymph # 1.3 K/mm3 (1.2-5.4) 04/17/17 05:12 [place] # 0.6 K/mm3 (0.0-0.8) 04/17/17 05:12 Eos # 0.3 K/mm3 (0.0-0.4) 04/17/17 05:12 Baso # 0.1 K/mm3 (0.0-0.1) 04/17/17 05:12 Seg Neutrophils % 68.5 % (40.0-70.0) 04/17/17 05:12 Seg Neutrophils # 4.9 K/mm3 (1.8-7.7) 04/17/17 05:12 POC ABG pH 7.433 (7.35-7.45) 04/16/17 08:45 POC ABG pCO2 46.7 (35-45) H 04/16/17 08:45 POC ABG pO2 60 (80-105) L 04/16/17 08:45 POC ABG HCO3 31.2 04/16/17 08:45 POC ABG Total CO2 33 04/16/17 08:45 POC ABG O2 Sat 91 04/16/17 08:45 POC ABG Base Excess 7 04/16/17 08:45 FiO2 21 % 04/16/17 08:45 Sodium 141 mmol/L (137-145) 04/19/17 15:18 Potassium 3.7 mmol/L (3.6-5.0) 04/19/17 15:18 Chloride 100.0 mmol/L (98-107) 04/19/17 15:18 Carbon Dioxide 27 mmol/L (22-30) 04/19/17 15:18 Anion Gap 18 mmol/L 04/19/17 15:18 BUN 7 mg/dL (7-17) 04/19/17 15:18 Creatinine 2.1 mg/dL (0.7-1.2) H 04/19/17 15:18 Estimated GFR 24 ml/min 04/19/17 15:18 BUN/Creatinine Ratio 3 % 04/19/17 15:18 Glucose 161 mg/dL (65-100) H 04/19/17 15:18 POC Glucose 186 (70-105) H 04/20/17 12:02 Calcium 8.9 mg/dL (8.4-10.2) 04/19/17 15:18 Total Creatine Kinase 146 units/L (30-135) H 04/14/17 06:29 CK-MB (CK-2) 5.5 ng/mL (0.0-4.0) H 04/14/17 06:29 CK-MB (CK-2) Rel Index 3.7 (0-4) 04/14/17 06:29 Troponin T 0.552 ng/mL (0.00-0.029) H* 04/14/17 15:19 NT-Pro-B Natriuret Pep 97110 pg/mL (0-900) H 04/14/17 06:29 Triglycerides 149 mg/dL (2-149) 04/14/17 02:14 Cholesterol 194 mg/dL (50-199) 04/14/17 02:14 LDL Cholesterol Direct 85 mg/dL (50-130) 04/14/17 02:14 HDL Cholesterol 80 mg/dL (40-59) H 04/14/17 02:14 Cholesterol/HDL Ratio 2.42 % 04/14/17 02:14 Urine Color Yellow (Yellow) 04/14/17 02:02 Urine Turbidity Clear (Clear) 04/14/17 02:02 Urine pH 7.0 (5.0-7.0) 04/14/17 02:02 Ur Specific [place] 1.011 (1.003-1.030) 04/14/17 02:02 Urine Protein >500 mg/dL (Negative) 04/14/17 02:02 Urine Glucose (UA) >=500 mg/dL (Negative) 04/14/17 02:02 Urine Ketones Neg mg/dL (Negative) 04/14/17 02:02 Urine Blood Neg (Negative) 04/14/17 02:02 Urine Nitrite Neg (Negative) 04/14/17 02:02 Urine Bilirubin Neg (Negative) 04/14/17 02:02 Urine Urobilinogen < 2.0 mg/dL (<2.0) 04/14/17 02:02 Ur Leukocyte Esterase Neg (Negative) 04/14/17 02:02 Urine WBC (Auto) < 1.0 /HPF (0.0-6.0) 04/14/17 02:02 Urine RBC (Auto) 3.0 /HPF (0.0-6.0) 04/14/17 02:02 U Epithel Cells (Auto) < 1.0 /HPF (0-13.0) 04/14/17 02:02
--- NOTE | 2017-04-18 17:29 | Progress Note ---
Assessment and Plan (1) Acute respiratory failure Current Visit: No Status: Acute Plan to address problem: O2 2 litres via nasal canula. Albuterol/atrovent aerosol treatments q 6 hours. (2) Pleural effusion due to CHF (congestive heart failure) Current Visit: Yes Status: Acute Plan to address problem: Obtaining Ultrasound of chest. (3) Acute congestive heart failure Current Visit: Yes Status: Acute Qualifiers: Congestive heart failure type: unspecified congestive heart failure type Qualified Code(s): I50.9 - Heart failure, unspecified Plan to address problem: Management as per cardiologiy (4) Coronary artery disease Current Visit: No Status: Acute Plan to address problem: Management as per cardiology (5) Diabetes mellitus Current Visit: No Status: Acute Plan to address problem: Management as per primary care. (6) ESRD (end stage renal disease) on dialysis Current Visit: No Status: Acute Plan to address problem: Management as per nephrology Patient is on hemodialysis. (7) Morbid obesity Current Visit: No Status: Acute Plan to address problem: Consult rodeo rider for weight reduction diet. Recommend sleep study as out patient. Subjective Date of service: 04/18/17 Principal diagnosis: ESRD, volume overload Interval history: Patient is Seen today for: ESRD, volume overload Seen and examined at bedside; 24 hour events reviewed; nursing and respiratory care staff consulted; feels better; denies acute chest pains or palpitations Objective Vital Signs - 12hr 04/18/17 04/18/17 04/18/17 05:44 05:46 07:54 Temperature 98.8 F Pulse Rate 78 77 Respiratory 20 18 Rate Blood Pressure 149/53 146/59 Blood Pressure 149/53 [Right] O2 Sat by Pulse 93 Oximetry 04/18/17 04/18/17 04/18/17 08:29 10:00 10:07 Temperature 98.8 F Pulse Rate 77 77 Respiratory 18 Rate Blood Pressure 146/59 Blood Pressure 146/59 [Right] O2 Sat by Pulse 94 97 Oximetry 04/18/17 04/18/17 04/18/17 11:24 14:15 16:11 Temperature 98.2 F 98.5 F Pulse Rate 75 72 72 Respiratory 18 18 Rate Blood Pressure 145/55 157/60 Blood Pressure 172/59 [Right] O2 Sat by Pulse 100 100 Oximetry Constitutional: no acute distress, alert Eyes: non-icteric Neck: supple Ascultation: Bilateral: diminished breath sounds Cardiovascular: regular rate and rhythm Gastrointestinal: normoactive bowel sounds, soft, non-tender Integumentary: normal Extremities: no cyanosis, no edema Neurologic: normal mental status, non-focal exam, pupils equal and round, CN II- XII normal Psychiatric: mood appropriate CBC and BMP: 04/17/17 05:12 04/19/17 15:18 ABG, PT/INR, D-dimer: ABG POC ABG pH 7.433 (7.35-7.45) 04/16/17 08:45 POC ABG pCO2 46.7 (35-45) H 04/16/17 08:45 POC ABG pO2 60 (80-105) L 04/16/17 08:45 POC ABG HCO3 31.2 04/16/17 08:45 POC ABG Total CO2 33 04/16/17 08:45 POC ABG O2 Sat 91 04/16/17 08:45 Abnormal lab findings: Abnormal Labs 04/14/17 04/14/17 04/14/17 02:14 02:14 04:17 WBC 11.6 H RBC 2.98 L Hgb 8.7 L Hct 26.4 L Lymph % (Auto) 10.4 L [place] % (Auto) Seg Neutrophils % 82.0 H Seg Neutrophils # 9.5 H POC ABG pCO2 POC ABG pO2 Sodium Chloride 97.8 L Carbon Dioxide BUN 50 H Creatinine 4.6 H Glucose 179 H POC Glucose Calcium Total Creatine Kinase CK-MB (CK-2) Troponin T 0.536 H* 0.513 H* NT-Pro-B Natriuret Pep HDL Cholesterol 80 H 04/14/17 04/14/17 04/14/17 06:29 06:29 09:00 WBC RBC Hgb Hct Lymph % (Auto) [place] % (Auto) Seg Neutrophils % Seg Neutrophils # POC ABG pCO2 POC ABG pO2 Sodium Chloride Carbon Dioxide BUN Creatinine Glucose POC Glucose 121 H Calcium Total Creatine Kinase 146 H CK-MB (CK-2) 5.5 H Troponin T 0.499 H* NT-Pro-B Natriuret Pep 29398 H HDL Cholesterol 04/14/17 04/14/17 04/14/17 15:19 16:46 20:39 WBC RBC Hgb Hct Lymph % (Auto) [place] % (Auto) Seg Neutrophils % Seg Neutrophils # POC ABG pCO2 POC ABG pO2 Sodium Chloride Carbon Dioxide BUN Creatinine Glucose POC Glucose 181 H 205 H Calcium Total Creatine Kinase CK-MB (CK-2) Troponin T 0.552 H* NT-Pro-B Natriuret Pep HDL Cholesterol 04/15/17 04/15/17 04/15/17 04:43 04:43 12:45 WBC RBC 2.75 L Hgb 7.9 L Hct 24.5 L Lymph % (Auto) [place] % (Auto) 7.5 H Seg Neutrophils % Seg Neutrophils # POC ABG pCO2 POC ABG pO2 Sodium Chloride Carbon Dioxide 33 H D BUN 23 H Creatinine 3.1 H Glucose 62 L POC Glucose 211 H Calcium Total Creatine Kinase CK-MB (CK-2) Troponin T NT-Pro-B Natriuret Pep HDL Cholesterol 04/15/17 04/16/17 04/16/17 21:10 04:42 08:45 WBC RBC Hgb Hct Lymph % (Auto) [place] % (Auto) Seg Neutrophils % Seg Neutrophils # POC ABG pCO2 46.7 H POC ABG pO2 60 L Sodium Chloride Carbon Dioxide BUN Creatinine 3.1 H Glucose POC Glucose 68 L Calcium Total Creatine Kinase CK-MB (CK-2) Troponin T NT-Pro-B Natriuret Pep HDL Cholesterol 04/16/17 04/16/17 04/16/17 11:48 12:55 22:16 WBC RBC 2.82 L Hgb 8.3 L Hct 25.2 L Lymph % (Auto) [place] % (Auto) 8.6 H Seg Neutrophils % Seg Neutrophils # POC ABG pCO2 POC ABG pO2 Sodium Chloride Carbon Dioxide BUN Creatinine Glucose POC Glucose 128 H 127 H Calcium Total Creatine Kinase CK-MB (CK-2) Troponin T NT-Pro-B Natriuret Pep HDL Cholesterol 04/17/17 04/17/17 04/17/17 05:12 05:12 07:38 WBC RBC 3.27 L Hgb 9.6 L Hct 28.8 L Lymph % (Auto) [place] % (Auto) 8.3 H Seg Neutrophils % Seg Neutrophils # POC ABG pCO2 POC ABG pO2 Sodium 136 L Chloride 97.1 L Carbon Dioxide BUN Creatinine 2.4 H Glucose 124 H POC Glucose 131 H Calcium 8.3 L Total Creatine Kinase CK-MB (CK-2) Troponin T NT-Pro-B Natriuret Pep HDL Cholesterol 04/17/17 04/17/17 04/18/17 14:21 21:50 07:57 WBC RBC Hgb Hct Lymph % (Auto) [place] % (Auto) Seg Neutrophils % Seg Neutrophils # POC ABG pCO2 POC ABG pO2 Sodium Chloride Carbon Dioxide BUN Creatinine Glucose POC Glucose 178 H 212 H 152 H Calcium Total Creatine Kinase CK-MB (CK-2) Troponin T NT-Pro-B Natriuret Pep HDL Cholesterol 04/18/17 04/18/17 11:29 12:09 WBC RBC Hgb Hct Lymph % (Auto) [place] % (Auto) Seg Neutrophils % Seg Neutrophils # POC ABG pCO2 POC ABG pO2 Sodium Chloride 96.3 L Carbon Dioxide BUN Creatinine 3.2 H Glucose 120 H POC Glucose 160 H Calcium Total Creatine Kinase CK-MB (CK-2) Troponin T NT-Pro-B Natriuret Pep HDL Cholesterol
[2017-04-18] MEDS: PRAVACHOL PO SCH (21:43)
[2017-04-18] MEDS: LEVAQUIN PO SCH (21:44)
[2017-04-19] MEDS: APRESOLINE PO SCH ×3 (05:22→21:35)
[2017-04-19] MEDS: SODIUM BICARBONATE PO SCH ×3 (08:30→20:04)
--- NOTE | 2017-04-19 10:29 | Progress Note ---
Assessment and Plan (1) ESRD (end stage renal disease) on dialysis Current Visit: No Status: Acute Plan to address problem: Pt gets HD TTS outpatient. HD today, will eval for HD need daily. Right IJ perm-catheter functional Fluid restriction of 1 liter per day Assess dialysis needs daily Obtain dialy weights Monitor I/O's Assess dialysis needs daily (2) Hypertension Current Visit: No Status: Acute Plan to address problem: Continue on anti-hypertensive agents (3) Acute respiratory failure Current Visit: No Status: Acute Plan to address problem: Improved. s/p HD yesterday. (4) Volume overload Current Visit: No Status: Acute Plan to address problem: HD today. Fluid restriction of 1 liter per day (5) Anemia of chronic disease due to ESRD: Current Visit: No Status: Acute Plan to address problem: Epogen to keep Hg 10-12 Transfuse PRN per primary Plan d/w HD RN. Sánchez Carmona MD Nephrology, Hypertension, Dialysis, Transplantation Phone no: [phone] Subjective Date of service: 04/19/17 Principal diagnosis: ESRD, volume overload Interval history: Denies CP/SHOB. Seen on HD. Objective - Exam Narrative Exam: General appearance: well-developed, appears stated age EENT: ATNC, PERRL, hearing intact, vision intact Neck: no JVD, supple Respiratory: Present: Coarse BS BL Cardiology: regular, S1S2 Gastrointestinal: normoactive bowel sounds Integumentary: other (bruising to abdominal area) Neurologic: alert and oriented x3 Musculoskeletal: joint swelling, minimal BLE edema Psychiatric: mood/affect appropriate - Vital Signs Vital signs: Vital Signs - 12hr 04/19/17 04/19/17 04/19/17 00:38 05:22 05:58 Temperature 98.2 F 98.2 F Pulse Rate 75 70 70 Respiratory 20 20 Rate Blood Pressure 172/59 Blood Pressure 134/59 172/59 [Right] O2 Sat by Pulse 100 100 Oximetry 04/19/17 04/19/17 07:56 08:38 Temperature Pulse Rate 75 Respiratory Rate Blood Pressure Blood Pressure [Right] O2 Sat by Pulse 100 Oximetry - Lab 04/17/17 05:12 04/18/17 12:09 Most recent lab results Calcium 8.6 mg/dL (8.4-10.2) 04/18/17 12:09
[2017-04-19] MEDS ORDERED: NACL 0.9% 1000 ML 2,000 ML ONE (13:03)
[2017-04-19] MEDS: HEPARIN IV PRN (13:05)
--- NOTE | 2017-04-19 14:38 | Progress Note ---
Assessment and Plan - Patient Problems (1) Shortness of breath Current Visit: Yes Status: Acute Plan to address problem: Conservative cardiac management. Subjective Date of service: 04/19/17 Principal diagnosis: ESRD, volume overload Interval history: Patient is comfortable, no acute distress, no cardiac complaints, looks and feels better. Hemodialysis in progress. Objective Vital Signs Temp Pulse Pulse Resp BP BP Pulse Ox 04/19/17 14:09 98.1 F 77 16 141/69 04/19/17 14:00 75 129/68 04/19/17 13:45 74 130/66 04/19/17 13:30 75 159/70 04/19/17 13:15 76 105/52 04/19/17 13:00 78 130/66 04/19/17 12:45 75 154/70 04/19/17 12:30 76 105/52 04/19/17 12:15 76 131/62 04/19/17 12:00 75 108/59 04/19/17 11:45 74 145/65 04/19/17 11:30 74 152/61 04/19/17 11:15 74 113/57 04/19/17 11:00 73 144/69 04/19/17 10:45 72 124/59 04/19/17 10:30 72 128/67 04/19/17 10:15 71 149/70 04/19/17 09:55 98.2 F 77 20 150/73 04/19/17 08:38 100 04/19/17 07:56 75 04/19/17 05:58 98.2 F 70 20 172/59 100 04/19/17 05:22 70 172/59 04/19/17 00:38 98.2 F 75 20 134/59 100 04/18/17 22:17 98 04/18/17 22:00 77 18 04/18/17 21:54 98.4 F 20 04/18/17 21:44 77 129/54 04/18/17 21:43 77 129/54 04/18/17 21:00 98 04/18/17 20:03 77 04/18/17 19:54 98.1 F 04/18/17 19:50 77 20 129/54 100 04/18/17 16:11 98.5 F 72 18 172/59 100 - Physical Examination General: Appears Well, No Apparent Distress HEENT: Positive: PERRL Neck: Positive: neck supple Cardiac: Positive: Reg Rate and Rhythm Lungs: Positive: Decreased Breath Sounds Neuro: Positive: Grossly Intact Abdomen: Positive: Soft Skin: Positive: Clear Extremities: Absent: edema - Imaging and Cardiology EKG: image reviewed
[2017-04-19] MEDS: LOVENOX SUB-Q SCH (14:59)
[2017-04-19] MEDS: LOPRESSOR PO SCH ×2 (14:59→21:34)
[2017-04-19] MEDS: ASPIRIN PO SCH (14:59)
[2017-04-19] MEDS: PROTONIX PO SCH (14:59)
[2017-04-19] MEDS: BUMEX PO SCH ×2 (14:59→21:34)
[2017-04-19 16:03] LABS: Calcium 8.9 mg/dL (8.4-10.2); Potassium 3.7 mmol/L (3.6-5.0)
--- NOTE | 2017-04-19 16:20 | Progress Note ---
<SAM PEARSON - Last Filed: 04/19/17 16:20> Assessment and Plan Assessment and plan: Acute hypoxic respiratory failure Fluid overload Resolving, will continue to monitor ESRD on hemodialysis Dialysis non-compliance Hemodialysis per nephrology tomorrow Acute on chronic systolic CHF History of CAD Hyperlipidemia Cardiology recommended no further workup at this time Continue appropriate home medications Bilateral pleural effusion SOB resolved Pulmonology following for pleural effusion DVT prophylaxis Heparin Disposition Possible DC in am History Interval history: Patient is laying in bed resting comfortably. Denies SOB, CP, N/V. Patient has no new complaints at this time but states that she's tired Hospitalist Physical - Constitutional Vitals: Temp Pulse Resp BP Pulse Ox 98.1 F 77 16 141/69 100 04/19/17 14:09 04/19/17 14:09 04/19/17 14:09 04/19/17 14:09 04/19/17 08:38 General appearance: Present: no acute distress - EENT Eyes: Present: PERRL, EOM intact ENT: hearing intact, clear oral mucosa, dentition normal - Neck Neck: Present: supple, normal ROM - Respiratory Respiratory effort: normal Respiratory: bilateral: diminished - Cardiovascular Rhythm: regular Heart Sounds: Present: S1 & S2, gallop - Extremities Extremities: no ischemia, pulses intact Peripheral Pulses: within normal limits - Abdominal General gastrointestinal: deferred - Integumentary Integumentary: Present: clear, warm, dry - Psychiatric Psychiatric: appropriate mood/affect, cooperative - Neurologic Neurologic: CNII-XII intact, moves all extremities - Allied Health Allied health notes reviewed: nursing Results - Labs CBC & Chem 7: 04/17/17 05:12 04/19/17 15:18 Labs: Laboratory Last Values WBC 7.2 K/mm3 (4.5-11.0) 04/17/17 05:12 RBC 3.27 M/mm3 (3.65-5.03) L 04/17/17 05:12 Hgb 9.6 gm/dl (10.1-14.3) L 04/17/17 05:12 Hct 28.8 % (30.3-42.9) L 04/17/17 05:12 MCV 88 fl (79-97) 04/17/17 05:12 MCH 30 pg (28-32) 04/17/17 05:12 MCHC 33 % (30-34) 04/17/17 05:12 RDW 14.5 % (13.2-15.2) 04/17/17 05:12 Plt Count 186 K/mm3 (140-440) 04/17/17 05:12 Lymph % (Auto) 18.3 % (13.4-35.0) 04/17/17 05:12 [place] % (Auto) 8.3 % (0.0-7.3) H 04/17/17 05:12 Eos % (Auto) 3.7 % (0.0-4.3) 04/17/17 05:12 Baso % (Auto) 1.2 % (0.0-1.8) 04/17/17 05:12 Lymph # 1.3 K/mm3 (1.2-5.4) 04/17/17 05:12 [place] # 0.6 K/mm3 (0.0-0.8) 04/17/17 05:12 Eos # 0.3 K/mm3 (0.0-0.4) 04/17/17 05:12 Baso # 0.1 K/mm3 (0.0-0.1) 04/17/17 05:12 Seg Neutrophils % 68.5 % (40.0-70.0) 04/17/17 05:12 Seg Neutrophils # 4.9 K/mm3 (1.8-7.7) 04/17/17 05:12 POC ABG pH 7.433 (7.35-7.45) 04/16/17 08:45 POC ABG pCO2 46.7 (35-45) H 04/16/17 08:45 POC ABG pO2 60 (80-105) L 04/16/17 08:45 POC ABG HCO3 31.2 04/16/17 08:45 POC ABG Total CO2 33 04/16/17 08:45 POC ABG O2 Sat 91 04/16/17 08:45 POC ABG Base Excess 7 04/16/17 08:45 FiO2 21 % 04/16/17 08:45 Sodium 141 mmol/L (137-145) 04/19/17 15:18 Potassium 3.7 mmol/L (3.6-5.0) 04/19/17 15:18 Chloride 100.0 mmol/L (98-107) 04/19/17 15:18 Carbon Dioxide 27 mmol/L (22-30) 04/19/17 15:18 Anion Gap 18 mmol/L 04/19/17 15:18 BUN 7 mg/dL (7-17) 04/19/17 15:18 Creatinine 2.1 mg/dL (0.7-1.2) H 04/19/17 15:18 Estimated GFR 24 ml/min 04/19/17 15:18 BUN/Creatinine Ratio 3 % 04/19/17 15:18 Glucose 161 mg/dL (65-100) H 04/19/17 15:18 POC Glucose 86 (70-105) 04/19/17 07:05 Calcium 8.9 mg/dL (8.4-10.2) 04/19/17 15:18 Total Creatine Kinase 146 units/L (30-135) H 04/14/17 06:29 CK-MB (CK-2) 5.5 ng/mL (0.0-4.0) H 04/14/17 06:29 CK-MB (CK-2) Rel Index 3.7 (0-4) 04/14/17 06:29 Troponin T 0.552 ng/mL (0.00-0.029) H* 04/14/17 15:19 NT-Pro-B Natriuret Pep 15239 pg/mL (0-900) H 04/14/17 06:29 Triglycerides 149 mg/dL (2-149) 04/14/17 02:14 Cholesterol 194 mg/dL (50-199) 04/14/17 02:14 LDL Cholesterol Direct 85 mg/dL (50-130) 04/14/17 02:14 HDL Cholesterol 80 mg/dL (40-59) H 04/14/17 02:14 Cholesterol/HDL Ratio 2.42 % 04/14/17 02:14 Urine Color Yellow (Yellow) 04/14/17 02:02 Urine Turbidity Clear (Clear) 04/14/17 02:02 Urine pH 7.0 (5.0-7.0) 04/14/17 02:02 Ur Specific [place] 1.011 (1.003-1.030) 04/14/17 02:02 Urine Protein >500 mg/dL (Negative) 04/14/17 02:02 Urine Glucose (UA) >=500 mg/dL (Negative) 04/14/17 02:02 Urine Ketones Neg mg/dL (Negative) 04/14/17 02:02 Urine Blood Neg (Negative) 04/14/17 02:02 Urine Nitrite Neg (Negative) 04/14/17 02:02 Urine Bilirubin Neg (Negative) 04/14/17 02:02 Urine Urobilinogen < 2.0 mg/dL (<2.0) 04/14/17 02:02 Ur Leukocyte Esterase Neg (Negative) 04/14/17 02:02 Urine WBC (Auto) < 1.0 /HPF (0.0-6.0) 04/14/17 02:02 Urine RBC (Auto) 3.0 /HPF (0.0-6.0) 04/14/17 02:02 U Epithel Cells (Auto) < 1.0 /HPF (0-13.0) 04/14/17 02:02 <FATOU MADISON M - Last Filed: 05/30/17 11:33> Hospitalist Physical - Constitutional Vitals: Temp Pulse Resp BP Pulse Ox 98.1 F 75 18 146/54 98 04/20/17 04:37 04/20/17 09:42 04/20/17 08:53 04/20/17 14:42 04/20/17 08:26 Results - Labs CBC & Chem 7: 04/17/17 05:12 04/19/17 15:18 Labs: Laboratory Last Values WBC 7.2 K/mm3 (4.5-11.0) 04/17/17 05:12 RBC 3.27 M/mm3 (3.65-5.03) L 04/17/17 05:12 Hgb 9.6 gm/dl (10.1-14.3) L 04/17/17 05:12 Hct 28.8 % (30.3-42.9) L 04/17/17 05:12 MCV 88 fl (79-97) 04/17/17 05:12 MCH 30 pg (28-32) 04/17/17 05:12 MCHC 33 % (30-34) 04/17/17 05:12 RDW 14.5 % (13.2-15.2) 04/17/17 05:12 Plt Count 186 K/mm3 (140-440) 04/17/17 05:12 Lymph % (Auto) 18.3 % (13.4-35.0) 04/17/17 05:12 [place] % (Auto) 8.3 % (0.0-7.3) H 04/17/17 05:12 Eos % (Auto) 3.7 % (0.0-4.3) 04/17/17 05:12 Baso % (Auto) 1.2 % (0.0-1.8) 04/17/17 05:12 Lymph # 1.3 K/mm3 (1.2-5.4) 04/17/17 05:12 [place] # 0.6 K/mm3 (0.0-0.8) 04/17/17 05:12 Eos # 0.3 K/mm3 (0.0-0.4) 04/17/17 05:12 Baso # 0.1 K/mm3 (0.0-0.1) 04/17/17 05:12 Seg Neutrophils % 68.5 % (40.0-70.0) 04/17/17 05:12 Seg Neutrophils # 4.9 K/mm3 (1.8-7.7) 04/17/17 05:12 POC ABG pH 7.433 (7.35-7.45) 04/16/17 08:45 POC ABG pCO2 46.7 (35-45) H 04/16/17 08:45 POC ABG pO2 60 (80-105) L 04/16/17 08:45 POC ABG HCO3 31.2 04/16/17 08:45 POC ABG Total CO2 33 04/16/17 08:45 POC ABG O2 Sat 91 04/16/17 08:45 POC ABG Base Excess 7 04/16/17 08:45 FiO2 21 % 04/16/17 08:45 Sodium 141 mmol/L (137-145) 04/19/17 15:18 Potassium 3.7 mmol/L (3.6-5.0) 04/19/17 15:18 Chloride 100.0 mmol/L (98-107) 04/19/17 15:18 Carbon Dioxide 27 mmol/L (22-30) 04/19/17 15:18 Anion Gap 18 mmol/L 04/19/17 15:18 BUN 7 mg/dL (7-17) 04/19/17 15:18 Creatinine 2.1 mg/dL (0.7-1.2) H 04/19/17 15:18 Estimated GFR 24 ml/min 04/19/17 15:18 BUN/Creatinine Ratio 3 % 04/19/17 15:18 Glucose 161 mg/dL (65-100) H 04/19/17 15:18 POC Glucose 186 (70-105) H 04/20/17 12:02 Calcium 8.9 mg/dL (8.4-10.2) 04/19/17 15:18 Total Creatine Kinase 146 units/L (30-135) H 04/14/17 06:29 CK-MB (CK-2) 5.5 ng/mL (0.0-4.0) H 04/14/17 06:29 CK-MB (CK-2) Rel Index 3.7 (0-4) 04/14/17 06:29 Troponin T 0.552 ng/mL (0.00-0.029) H* 04/14/17 15:19 NT-Pro-B Natriuret Pep 98853 pg/mL (0-900) H 04/14/17 06:29 Triglycerides 149 mg/dL (2-149) 04/14/17 02:14 Cholesterol 194 mg/dL (50-199) 04/14/17 02:14 LDL Cholesterol Direct 85 mg/dL (50-130) 04/14/17 02:14 HDL Cholesterol 80 mg/dL (40-59) H 04/14/17 02:14 Cholesterol/HDL Ratio 2.42 % 04/14/17 02:14 Urine Color Yellow (Yellow) 04/14/17 02:02 Urine Turbidity Clear (Clear) 04/14/17 02:02 Urine pH 7.0 (5.0-7.0) 04/14/17 02:02 Ur Specific [place] 1.011 (1.003-1.030) 04/14/17 02:02 Urine Protein >500 mg/dL (Negative) 04/14/17 02:02 Urine Glucose (UA) >=500 mg/dL (Negative) 04/14/17 02:02 Urine Ketones Neg mg/dL (Negative) 04/14/17 02:02 Urine Blood Neg (Negative) 04/14/17 02:02 Urine Nitrite Neg (Negative) 04/14/17 02:02 Urine Bilirubin Neg (Negative) 04/14/17 02:02 Urine Urobilinogen < 2.0 mg/dL (<2.0) 04/14/17 02:02 Ur Leukocyte Esterase Neg (Negative) 04/14/17 02:02 Urine WBC (Auto) < 1.0 /HPF (0.0-6.0) 04/14/17 02:02 Urine RBC (Auto) 3.0 /HPF (0.0-6.0) 04/14/17 02:02 U Epithel Cells (Auto) < 1.0 /HPF (0-13.0) 04/14/17 02:02
--- NOTE | 2017-04-19 20:34 | Progress Note ---
Assessment and Plan - Patient Problems (1) Pleural effusion due to CHF (congestive heart failure) Status: Acute Plan to address problem: Ultrasound of the chest If enough fluid plan for thoracentesis Continue supplemental oxygen to keep O2 sats>90% (2) Acute respiratory failure Status: Acute Plan to address problem: supplemental oxygen Bronchodilators prn VTE prophylaxis (3) Acute congestive heart failure Status: Acute Qualifiers: Congestive heart failure type: unspecified congestive heart failure type Qualified Code(s): I50.9 - Heart failure, unspecified Plan to address problem: Cardioprotective measures Cardiology following (4) ESRD (end stage renal disease) on dialysis Status: Acute Plan to address problem: HD per renal service Subjective Date of service: 04/19/17 Principal diagnosis: ESRD, volume overload Interval history: Patietn seen and examined. Vitals, labs, medications, chart and imaging reviewed. No new acute overnight events Objective - Exam Narrative Exam: Gen. appearance: Patient lying in bed in no acute distress HEENT: Normocephalic/atraumatic, pupils equal round reactive to light, extra alkaline movement intact, no scleral icterus, no JVD or thyromegaly or nodule, neck is supple, mucous membrane moist, no erythema or exudate Heart: S1-S2, regular rate and rhythm Lungs: Crackles bilateral breathing comfortable Abdomen: Positive bowel sounds, nontender, nondistended, no organomegaly Extremities:+3 edema, cyanosis, clubbing Neuro:: Oriented 3 , cranial nerves II-12 intact, speech, motor intact Skin:heel ulcer, No rash, nodules, warm dry Vital Signs - 12hr 04/19/17 04/19/17 04/19/17 08:38 09:55 10:15 Temperature 98.2 F Pulse Rate 77 71 Respiratory 20 Rate Blood Pressure 150/73 149/70 O2 Sat by Pulse 100 Oximetry 04/19/17 04/19/17 04/19/17 10:30 10:45 11:00 Temperature Pulse Rate 72 72 73 Respiratory Rate Blood Pressure 128/67 124/59 144/69 O2 Sat by Pulse Oximetry 04/19/17 04/19/17 04/19/17 11:15 11:30 11:45 Temperature Pulse Rate 74 74 74 Respiratory Rate Blood Pressure 113/57 152/61 145/65 O2 Sat by Pulse Oximetry 04/19/17 04/19/17 04/19/17 12:00 12:15 12:30 Temperature Pulse Rate 75 76 76 Respiratory Rate Blood Pressure 108/59 131/62 105/52 O2 Sat by Pulse Oximetry 04/19/17 04/19/17 04/19/17 12:45 13:00 13:15 Temperature Pulse Rate 75 78 76 Respiratory Rate Blood Pressure 154/70 130/66 105/52 O2 Sat by Pulse Oximetry 04/19/17 04/19/17 04/19/17 13:30 13:45 14:00 Temperature Pulse Rate 75 74 75 Respiratory Rate Blood Pressure 159/70 130/66 129/68 O2 Sat by Pulse Oximetry 04/19/17 14:09 Temperature 98.1 F Pulse Rate 77 Respiratory 16 Rate Blood Pressure 141/69 O2 Sat by Pulse Oximetry Constitutional: no acute distress, alert Eyes: non-icteric Neck: supple Ascultation: Bilateral: diminished breath sounds Cardiovascular: regular rate and rhythm Gastrointestinal: normoactive bowel sounds, soft, non-tender Integumentary: normal Extremities: no cyanosis, no edema Neurologic: normal mental status, non-focal exam, pupils equal and round, CN II- XII normal Psychiatric: mood appropriate CBC and BMP: 04/17/17 05:12 04/19/17 15:18 ABG, PT/INR, D-dimer: ABG POC ABG pH 7.433 (7.35-7.45) 04/16/17 08:45 POC ABG pCO2 46.7 (35-45) H 04/16/17 08:45 POC ABG pO2 60 (80-105) L 04/16/17 08:45 POC ABG HCO3 31.2 04/16/17 08:45 POC ABG Total CO2 33 04/16/17 08:45 POC ABG O2 Sat 91 04/16/17 08:45 Abnormal lab findings: Abnormal Labs 04/14/17 04/14/17 04/14/17 02:14 02:14 04:17 WBC 11.6 H RBC 2.98 L Hgb 8.7 L Hct 26.4 L Lymph % (Auto) 10.4 L [place] % (Auto) Seg Neutrophils % 82.0 H Seg Neutrophils # 9.5 H POC ABG pCO2 POC ABG pO2 Sodium Chloride 97.8 L Carbon Dioxide BUN 50 H Creatinine 4.6 H Glucose 179 H POC Glucose Calcium Total Creatine Kinase CK-MB (CK-2) Troponin T 0.536 H* 0.513 H* NT-Pro-B Natriuret Pep HDL Cholesterol 80 H 04/14/17 04/14/17 04/14/17 06:29 06:29 09:00 WBC RBC Hgb Hct Lymph % (Auto) [place] % (Auto) Seg Neutrophils % Seg Neutrophils # POC ABG pCO2 POC ABG pO2 Sodium Chloride Carbon Dioxide BUN Creatinine Glucose POC Glucose 121 H Calcium Total Creatine Kinase 146 H CK-MB (CK-2) 5.5 H Troponin T 0.499 H* NT-Pro-B Natriuret Pep 29358 H HDL Cholesterol 04/14/17 04/14/17 04/14/17 15:19 16:46 20:39 WBC RBC Hgb Hct Lymph % (Auto) [place] % (Auto) Seg Neutrophils % Seg Neutrophils # POC ABG pCO2 POC ABG pO2 Sodium Chloride Carbon Dioxide BUN Creatinine Glucose POC Glucose 181 H 205 H Calcium Total Creatine Kinase CK-MB (CK-2) Troponin T 0.552 H* NT-Pro-B Natriuret Pep HDL Cholesterol 04/15/17 04/15/17 04/15/17 04:43 04:43 12:45 WBC RBC 2.75 L Hgb 7.9 L Hct 24.5 L Lymph % (Auto) [place] % (Auto) 7.5 H Seg Neutrophils % Seg Neutrophils # POC ABG pCO2 POC ABG pO2 Sodium Chloride Carbon Dioxide 33 H D BUN 23 H Creatinine 3.1 H Glucose 62 L POC Glucose 211 H Calcium Total Creatine Kinase CK-MB (CK-2) Troponin T NT-Pro-B Natriuret Pep HDL Cholesterol 04/15/17 04/16/17 04/16/17 21:10 04:42 08:45 WBC RBC Hgb Hct Lymph % (Auto) [place] % (Auto) Seg Neutrophils % Seg Neutrophils # POC ABG pCO2 46.7 H POC ABG pO2 60 L Sodium Chloride Carbon Dioxide BUN Creatinine 3.1 H Glucose POC Glucose 68 L Calcium Total Creatine Kinase CK-MB (CK-2) Troponin T NT-Pro-B Natriuret Pep HDL Cholesterol 04/16/17 04/16/17 04/16/17 11:48 12:55 22:16 WBC RBC 2.82 L Hgb 8.3 L Hct 25.2 L Lymph % (Auto) [place] % (Auto) 8.6 H Seg Neutrophils % Seg Neutrophils # POC ABG pCO2 POC ABG pO2 Sodium Chloride Carbon Dioxide BUN Creatinine Glucose POC Glucose 128 H 127 H Calcium Total Creatine Kinase CK-MB (CK-2) Troponin T NT-Pro-B Natriuret Pep HDL Cholesterol 04/17/17 04/17/17 04/17/17 05:12 05:12 07:38 WBC RBC 3.27 L Hgb 9.6 L Hct 28.8 L Lymph % (Auto) [place] % (Auto) 8.3 H Seg Neutrophils % Seg Neutrophils # POC ABG pCO2 POC ABG pO2 Sodium 136 L Chloride 97.1 L Carbon Dioxide BUN Creatinine 2.4 H Glucose 124 H POC Glucose 131 H Calcium 8.3 L Total Creatine Kinase CK-MB (CK-2) Troponin T NT-Pro-B Natriuret Pep HDL Cholesterol 04/17/17 04/17/17 04/18/17 14:21 21:50 07:57 WBC RBC Hgb Hct Lymph % (Auto) [place] % (Auto) Seg Neutrophils % Seg Neutrophils # POC ABG pCO2 POC ABG pO2 Sodium Chloride Carbon Dioxide BUN Creatinine Glucose POC Glucose 178 H 212 H 152 H Calcium Total Creatine Kinase CK-MB (CK-2) Troponin T NT-Pro-B Natriuret Pep HDL Cholesterol 04/18/17 04/18/17 04/18/17 11:29 12:09 16:00 WBC RBC Hgb Hct Lymph % (Auto) [place] % (Auto) Seg Neutrophils % Seg Neutrophils # POC ABG pCO2 POC ABG pO2 Sodium Chloride 96.3 L Carbon Dioxide BUN Creatinine 3.2 H Glucose 120 H POC Glucose 160 H 125 H Calcium Total Creatine Kinase CK-MB (CK-2) Troponin T NT-Pro-B Natriuret Pep HDL Cholesterol 04/18/17 04/19/17 04/19/17 21:25 15:18 17:26 WBC RBC Hgb Hct Lymph % (Auto) [place] % (Auto) Seg Neutrophils % Seg Neutrophils # POC ABG pCO2 POC ABG pO2 Sodium Chloride Carbon Dioxide BUN Creatinine 2.1 H Glucose 161 H POC Glucose 135 H 202 H Calcium Total Creatine Kinase CK-MB (CK-2) Troponin T NT-Pro-B Natriuret Pep HDL Cholesterol Chest x-ray: report reviewed Allied health notes reviewed: RT
[2017-04-19] MEDS: PRAVACHOL PO SCH (21:35)
[2017-04-20] MEDS: APRESOLINE PO SCH ×2 (05:44→14:42)
[2017-04-20] MEDS: SODIUM BICARBONATE PO SCH ×2 (08:26→14:42)
[2017-04-20] MEDS: LOPRESSOR PO SCH (09:42)
[2017-04-20] MEDS: ASPIRIN PO SCH (09:43)
[2017-04-20] MEDS: BUMEX PO SCH (09:43)
[2017-04-20] MEDS: LOVENOX SUB-Q SCH (09:43)
[2017-04-20] MEDS: PROTONIX PO SCH (09:47)
--- NOTE | 2017-04-20 10:21 | Progress Note ---
Assessment and Plan Volume overload Bilateral Plueral effusions ESRD on dialysis Diabetes Hypertension Hyperlipidemia Elevated troponin, chronic Echocardiogram reports a mild decreased systolic function, EF 40-45% done 2016. Conservative cardiac management. Subjective Date of service: 04/20/17 Principal diagnosis: ESRD, volume overload Interval history: Patient denies chest pain and shortness of breath. Objective Vital Signs Temp Pulse Pulse Resp BP BP Pulse Ox 04/20/17 09:42 75 137/46 04/20/17 08:53 18 04/20/17 08:26 98 04/20/17 05:44 71 152/32 04/20/17 04:37 98.1 F 72 18 152/32 97 04/20/17 00:25 97.5 F L 64 18 127/65 96 04/19/17 22:00 78 18 04/19/17 21:35 78 166/85 04/19/17 21:34 78 166/85 04/19/17 21:30 98 04/19/17 20:51 78 04/19/17 19:51 98.0 F 78 18 166/85 98 04/19/17 19:47 97.7 F 78 18 121/39 97 04/19/17 17:17 97.5 F L 76 18 114/48 98 04/19/17 14:09 98.1 F 77 16 141/69 04/19/17 14:00 75 129/68 04/19/17 13:45 74 130/66 04/19/17 13:30 75 159/70 04/19/17 13:15 76 105/52 04/19/17 13:00 78 130/66 04/19/17 12:45 75 154/70 04/19/17 12:30 76 105/52 04/19/17 12:15 76 131/62 04/19/17 12:00 75 108/59 04/19/17 11:45 74 145/65 04/19/17 11:30 74 152/61 04/19/17 11:15 74 113/57 04/19/17 11:00 73 144/69 04/19/17 10:45 72 124/59 04/19/17 10:30 72 128/67 - Physical Examination General: Appears Well, No Apparent Distress HEENT: Positive: PERRL Cardiac: Positive: Reg Rate and Rhythm Lungs: Positive: Decreased Breath Sounds Neuro: Positive: Grossly Intact - Labs and Meds Comprehensive Metabolic Panel 04/19/17 Range/Units 15:18 Sodium 141 (137-145) mmol/L Potassium 3.7 (3.6-5.0) mmol/L Chloride 100.0 (98-107) mmol/L Carbon Dioxide 27 (22-30) mmol/L BUN 7 (7-17) mg/dL Creatinine 2.1 H (0.7-1.2) mg/dL Glucose 161 H (65-100) mg/dL Calcium 8.9 (8.4-10.2) mg/dL - Imaging and Cardiology EKG: image reviewed
[2017-04-20] MEDS ORDERED: Fluarix Quad 2017-2018(36 MOS+ IM ONE (12:00)
--- NOTE | 2017-04-20 12:50 | Progress Note ---
Assessment and Plan (1) ESRD (end stage renal disease) on dialysis Current Visit: No Status: Acute Plan to address problem: Pt gets HD TTS outpatient. s/p HD yesterday, no HD today. will eval for HD need daily. Right IJ perm-catheter functional Fluid restriction of 1 liter per day Assess dialysis needs daily Obtain dialy weights Monitor I/O's Assess dialysis needs daily (2) Hypertension Current Visit: No Status: Acute Plan to address problem: Continue on anti-hypertensive agents (3) Acute respiratory failure Current Visit: No Status: Acute Plan to address problem: Improved. s/p HD yesterday. (4) Volume overload Current Visit: No Status: Acute Plan to address problem: Improved. s/p HD yesterday. Also on bumex. Fluid restriction of 1 liter per day (5) Anemia of chronic disease due to ESRD: Current Visit: No Status: Acute Plan to address problem: Epogen to keep Hg 10-12 Transfuse PRN per primary Pt ok to be discharge home from renal standpoint. She can go to her HD unit to get HD tomorrow. Plan d/w Dr Vivek Carmona MD Nephrology, Hypertension, Dialysis, Transplantation Phone no: [phone] Subjective Date of service: 04/20/17 Principal diagnosis: ESRD, volume overload Interval history: Denies CP/SHOB. Wants to go home. Objective - Exam Narrative Exam: General appearance: well-developed, appears stated age EENT: ATNC, PERRL, hearing intact, vision intact Neck: no JVD, supple Respiratory: Present: Coarse BS BL Cardiology: regular, S1S2 Gastrointestinal: normoactive bowel sounds Integumentary: other (bruising to abdominal area) Neurologic: alert and oriented x3 Musculoskeletal: joint swelling, minimal BLE edema Psychiatric: mood/affect appropriate - Vital Signs Vital signs: Vital Signs - 12hr 04/20/17 04/20/17 04/20/17 04:37 05:44 08:26 Temperature 98.1 F Pulse Rate 72 71 Respiratory 18 Rate Blood Pressure 152/32 152/32 O2 Sat by Pulse 97 98 Oximetry 04/20/17 04/20/17 08:53 09:42 Temperature Pulse Rate 75 Respiratory 18 Rate Blood Pressure 137/46 O2 Sat by Pulse Oximetry - Lab 04/17/17 05:12 04/19/17 15:18 Most recent lab results Calcium 8.9 mg/dL (8.4-10.2) 04/19/17 15:18
--- NOTE | 2017-04-20 13:05 | Discharge Summary ---
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 Moncada Notified:: Ivory LOPEZ Phone number called:: Was contact made?: Yes If yes, spoke with:: [facility]ola-answering service Time called:: 16:27 Primary care physician: RANCH HAND LIVESTOCK Hospitalization Hospital course: 61-year-old female with a history of hypertension, end-stage renal disease on dialysis Sunday, Sunday, Sunday, peripheral vascular disease, coronary artery disease who was just discharged from the hospital on May 05 come back to the emergency room 6 days ago with complaint of shortness of breath since 2 days prior. Her last dialysis was on Sunday. Also complaining of chest pressure in the left substernal area, constant since 2 days prior, radiating to her back, cannot identify exacerbating or relieving factors. Admits to nausea, no diaphoresis or palpitations. Chest X-rays revealed stable pulmonary vascular congestion with airspace disease in both lung bases and effusions along with cardiomegaly and mild atelactasis. Chest US verified small bilateral pleural effusions. Patient was hemodialized and treated with IVF, antihypertensives, antibiotics and resumed home medications. Discharge diagnosis Acute hypoxic respiratory failure ESRD on hemodialysis Acute on chronic systolic CHF History of CAD Hyperlipidemia Bilateral pleural effusion Disposition: - TO HOME OR SELFCARE Core Measure Documentation - Palliative Care Palliative Care/ Comfort Measures: Not Applicable - Core Measures Any of the following diagnoses?: none Exam - Constitutional Vitals: Temp Pulse Resp BP Pulse Ox 98.1 F 75 18 137/46 98 04/20/17 04:37 04/20/17 09:42 04/20/17 08:53 04/20/17 09:42 04/20/17 08:26 General appearance: Present: no acute distress, well-nourished - EENT Eyes: Present: PERRL ENT: hearing intact, clear oral mucosa - Neck Neck: Present: supple, normal ROM - Respiratory Respiratory effort: normal Respiratory: bilateral: diminished - Cardiovascular Rhythm: regular Heart Sounds: Present: S1 & S2. Absent: rub, click - Extremities Extremities: pulses symmetrical, No edema Peripheral Pulses: within normal limits - Abdominal General gastrointestinal: Present: soft, non-tender Female genitourinary: Present: deferred - Rectal Rectal Exam: deferred - Integumentary Integumentary: Present: clear, warm, dry - Musculoskeletal Musculoskeletal: gait normal, strength equal bilaterally - Psychiatric Psychiatric: appropriate mood/affect, intact judgment & insight - Neurologic Neurologic: CNII-XII intact, moves all extremities - Allied Health Allied health notes reviewed: nursing Plan Activity: fall precautions Weight Bearing Status: Full Weight Bearing Diet: low fat, low cholesterol, low salt, diabetic, renal Follow up with: TRACEE ALBRIGHT MD [Primary Care Provider] - 3-5 Days KAYODE PACE MD [Staff Physician] - 7 Days <FATOU MADISON - Last Filed: 05/30/17 11:38> Providers - Providers Date of Admission: 04/14/17 05:23 Attending physician: FATOU MADISON MD 04/14/17 05:23 Consult to Physician [CONS] Urgent Consulting Provider: JANNA LEGER Reason For Exam: hd Notified:: y 04/14/17 06:14 Consult to Physician [CONS] Routine Consulting Provider: NATHALIE RANDOLPH Reason For Exam: cp Notified:: 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 Moncada Notified:: Ivory LOPEZ Phone number called:: Was contact made?: Yes If yes, spoke with:: [facility]ola-answering service Time called:: 16:27 Primary care physician: RANCH HAND LIVESTOCK Exam - Constitutional Vitals: Temp Pulse Resp BP Pulse Ox 98.1 F 75 18 146/54 98 04/20/17 04:37 04/20/17 09:42 04/20/17 08:53 04/20/17 14:42 04/20/17 08:26
[2017-04-20 14:44] VITALS: BP 146/54
== END 2017-04-20 15:07 | disposition home or self-care (01) | DRG 291 ==
LOC: ED 00:43 → 4A 05:23
PROVIDERS: ADMIT Internal Medicine; ATTEND Internal Medicine
PROC: 5A1D70Z Performance of Urinary Filtration, Intermittent, Less than 6 Hours Per Day (ICD-10-PCS; 2017-04-14)
PROC: 5A09357 Assistance with Respiratory Ventilation, Less than 24 Consecutive Hours, Continuous Positive Airway Pressure (ICD-10-PCS; 2017-04-14)
PROC: 5A1D70Z Performance of Urinary Filtration, Intermittent, Less than 6 Hours Per Day (ICD-10-PCS; 2017-04-15)
PROC: 4A033R1 Measurement of Arterial Saturation, Peripheral, Percutaneous Approach (ICD-10-PCS; principal; 2017-04-16)
PROC: 5A1D70Z Performance of Urinary Filtration, Intermittent, Less than 6 Hours Per Day (ICD-10-PCS; 2017-04-16)
PROC: 5A09357 Assistance with Respiratory Ventilation, Less than 24 Consecutive Hours, Continuous Positive Airway Pressure (ICD-10-PCS; 2017-04-16)
PROC: 5A1D70Z Performance of Urinary Filtration, Intermittent, Less than 6 Hours Per Day (ICD-10-PCS; 2017-04-17)
PROC: 5A1D70Z Performance of Urinary Filtration, Intermittent, Less than 6 Hours Per Day (ICD-10-PCS; 2017-04-19)
DX: I13.2 Hypertensive heart and chronic kidney disease with heart failure and with stage 5 chronic kidney disease, or end stage renal disease (principal); J96.01 Acute respiratory failure with hypoxia; N18.6 End stage renal disease; J18.9 Pneumonia, unspecified organism; I50.23 Acute on chronic systolic (congestive) heart failure; L97.409 Non-pressure chronic ulcer of unspecified heel and midfoot with unspecified severity; J90 Pleural effusion, not elsewhere classified; N17.9 Acute kidney failure, unspecified; R07.9 Chest pain, unspecified; Z88.6 Allergy status to analgesic agent; Z88.0 Allergy status to penicillin; Z88.8 Allergy status to other drugs, medicaments and biological substances; Z79.4 Long term (current) use of insulin; E78.00 Pure hypercholesterolemia, unspecified; E11.22 Type 2 diabetes mellitus with diabetic chronic kidney disease; Z99.2 Dependence on renal dialysis; Z82.49 Family history of ischemic heart disease and other diseases of the circulatory system; E11.51 Type 2 diabetes mellitus with diabetic peripheral angiopathy without gangrene; E87.70 Fluid overload, unspecified; D63.1 Anemia in chronic kidney disease; E66.01 Morbid (severe) obesity due to excess calories; Z68.38 Body mass index [BMI] 38.0-38.9, adult; I25.10 Atherosclerotic heart disease of native coronary artery without angina pectoris
CPT/HCPCS: 36415; 36600; 71010; 71020; 76604; 80048; 80061; 81001; 82550; 82553; 82803; 82962; 83880; 84484; 85025; 90686; 93005; 93010; 94660; 94760; 96374; 96375; 99291; A9270-GY; J0360; J0885; J1644; J1650; J1815; J1940; J1956; J7030

== ENCOUNTER 2017-04-30 05:31 | Inpatient (IN) | payer OTHER ==
[2017-04-30 07:01] LABS: Eosinophils % (Auto) 3.1 % (0.0-4.3); Hematocrit 28.3 % (30.3-42.9); Hemoglobin 9.1 gm/dl (10.1-14.3); Mean Corpuscular HGB Conc 32 % (30-34); Mean Corpuscular Hemoglobin 29 pg (28-32); Mean Corpuscular Volume 90 fl (79-97); Platelet Count 215 K/mm3 (140-440); Red Blood Count 3.14 M/mm3 (3.65-5.03); Red Cell Distribution Width 15.3 % (13.2-15.2); White Blood Count 9.7 K/mm3 (4.5-11.0)
[2017-04-30 07:14] LABS: Calcium 8.9 mg/dL (8.4-10.2); Potassium 4.5 mmol/L (3.6-5.0)
[2017-04-30] MEDS ORDERED: DUONEB *Not for PRN Use IH ONE (07:45)
[2017-04-30] MEDS ORDERED: TYLENOL PO ONE (07:46)
--- NOTE | 2017-04-30 08:07 | Emergency Department Report ---
ED Chest Pain HPI - General Chief Complaint: Chest Pain Stated Complaint: CHEST PAIN Time Seen by Provider: 04/30/17 07:35 Source: patient, family Mode of arrival: Wheelchair Limitations: No Limitations - History of Present Illness Initial Comments: This is a 61-year-old female presents to the emergency department with complaint of some chest pain and shortness of breath that woke her up around 3 AM this morning. She took an extra hydralazine at that time trying to treat her pain without any relief. She has a history of congestive heart failure, diabetes, hypertension, hyperlipidemia and is end-stage renal disease on Sunday , , Sunday. 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 Her primary care physician is Dr. Roberth Felix. No recent travel or sick contacts at home. Severity scale (0 -10): 8 - Related Data Home Medications Medication Instructions Recorded Confirmed Last Taken glipiZIDE [Glucotrol] 10 mg PO BID 04/27/15 04/30/17 04/29/17 Bumetanide [Bumex 1 mg tab] 1 mg PO BID 04/30/17 04/30/17 04/29/17 Pentoxifylline 400 mg PO TID 04/30/17 04/30/17 04/29/17 Vit B Comp No.3/Folic/C/Biotin 1 each PO DAILY 04/30/17 04/30/17 04/29/17 [Nephro-Chip Rx Tablet] Previous Rx's Medication Instructions Recorded Last Taken Type Metoprolol [Lopressor TAB] 50 mg PO BID #60 tablet 04/05/17 04/29/17 Rx Pantoprazole [Protonix TAB] 40 mg PO DAILY #30 tablet 04/05/17 04/29/17 Rx Pravastatin [Pravachol] 20 mg PO QHS #30 tablet 04/05/17 04/29/17 Rx Sodium Bicarbonate 650 mg PO TID #90 tablet 04/05/17 04/29/17 Rx hydrALAZINE [Apresoline TAB] 25 mg PO Q8HR #90 tablet 04/05/17 04/30/17 04:00 Rx Allergies Allergy/AdvReac Type Severity Reaction Status Date / Time codeine Allergy Hives Verified 07/26/16 07:29 morphine Allergy confusion Verified 07/26/16 07:29 Penicillins Allergy Hives Verified 07/26/16 07:29 Heart Score - HEART Score History: Moderately suspicious EKG: Non-specific Age: 45-65 Risk factors: > 3 risk factors or hx of atherosclerotic disease Troponin: 1-3x normal limit HEART Score: 6 - Critical Actions Critical Actions: 4-6 pts:12-16.6% risk of adverse cardiac event. Should be admitted ED Review of Systems ROS: Stated complaint: CHEST PAIN Other details as noted in HPI Comment: All other systems reviewed and negative Constitutional: denies: chills, fever Eyes: denies: eye pain, eye discharge, vision change ENT: denies: ear pain, throat pain Respiratory: shortness of breath, SOB with exertion Cardiovascular: chest pain, edema Gastrointestinal: denies: abdominal pain, nausea, diarrhea Genitourinary: denies: urgency, dysuria, discharge Musculoskeletal: denies: back pain, joint swelling, arthralgia Skin: denies: rash, lesions Neurological: denies: headache, weakness, paresthesias ED Past Medical Hx - Past Medical History Hx Hypertension: Yes Hx Heart Attack/AMI: No Hx Congestive Heart Failure: Yes Hx Diabetes: Yes Hx Deep Vein Thrombosis: No Hx Pulmonary Embolism: No Hx Liver Disease: No Hx Renal Disease: Yes (CKD, Tues, Thurs, Sat) Hx Kidney Stones: No Hx Asthma: No Hx COPD: No Hx Tuberculosis: No Hx HIV: No Additional medical history: HIGH CHOLESTEROL - Surgical History Hx Coronary Stent: No Hx Pacemaker: No Hx Internal Defibrillator: No Additional Surgical History: right chest vas cath - Social History Smoking Status: Never Smoker Substance Use Type: None - Medications Home Medications: Home Medications Medication Instructions Recorded Confirmed Last Taken Type glipiZIDE [Glucotrol] 10 mg PO BID 04/27/15 04/30/17 04/29/17 History Metoprolol [Lopressor TAB] 50 mg PO BID #60 tablet 04/05/17 04/30/17 04/29/17 Rx Pantoprazole [Protonix TAB] 40 mg PO DAILY #30 tablet 04/05/17 04/30/17 Rx Pravastatin [Pravachol] 20 mg PO QHS #30 tablet 04/05/17 04/30/17 04/29/17 Rx Sodium Bicarbonate 650 mg PO TID #90 tablet 04/05/17 04/30/17 04/29/17 Rx hydrALAZINE [Apresoline TAB] 25 mg PO Q8HR #90 tablet 04/05/17 04/30/17 04:00 Rx Bumetanide [Bumex 1 mg tab] 1 mg PO BID 04/30/17 04/30/17 04/29/17 History Pentoxifylline 400 mg PO TID 04/30/17 04/30/17 04/29/17 History Vit B Comp No.3/Folic/C/Biotin 1 each PO DAILY 04/30/17 04/30/17 04/29/17 History [Nephro-Chip Rx Tablet] ED Physical Exam - General Limitations: No Limitations - Other Other exam information: GENERAL: The patient is well-developed well-nourished. HENT: Normocephalic. Atraumatic. Patient has moist mucous membranes. EYES: Extraocular motions are intact. Pupils equal reactive to light bilaterally. NECK: Supple. Trachea is midline. CHEST/LUNGS: Coarse breath sounds throughout the chest. There is some tachypnea but no accessory muscle use. There is no respiratory distress noted. HEART/CARDIOVASCULAR: Regular. There is no tachycardia. There is no murmur. ABDOMEN: Abdomen is soft, nontender. Patient has normal bowel sounds. There is no abdominal distention. SKIN: Skin is warm and dry. There is some pitting edema to the bilateral lower extremity. NEURO: The patient is awake, alert, and oriented. The patient is cooperative. The patient has no focal neurologic deficits. The patient has normal speech. MUSCULOSKELETAL: There is no tenderness or deformity. There is no limitation range of motion. There is no evidence of acute injury. ED Course Vital Signs 04/30/17 04/30/17 04/30/17 06:18 08:00 09:00 Temperature 98.4 F Pulse Rate 71 83 90 Pulse Rate [ Anterior Right Throughout] Respiratory 20 31 H 30 H Rate Respiratory Rate [Anterior Right Throughout] Blood Pressure Blood Pressure 159/52 [Left] O2 Sat by Pulse 100 100 100 Oximetry 04/30/17 04/30/17 04/30/17 09:21 09:30 10:00 Temperature Pulse Rate 87 Pulse Rate [ 89 Anterior Right Throughout] Respiratory 24 29 H Rate Respiratory 29 H Rate [Anterior Right Throughout] Blood Pressure 171/89 Blood Pressure [Left] O2 Sat by Pulse 100 Oximetry 04/30/17 04/30/17 04/30/17 10:09 10:20 11:00 Temperature Pulse Rate 87 88 Pulse Rate [ Anterior Right Throughout] Respiratory 27 H Rate Respiratory Rate [Anterior Right Throughout] Blood Pressure 176/102 171/92 158/65 Blood Pressure [Left] O2 Sat by Pulse 100 Oximetry 04/30/17 12:00 Temperature Pulse Rate 84 Pulse Rate [ Anterior Right Throughout] Respiratory 19 Rate Respiratory Rate [Anterior Right Throughout] Blood Pressure 161/64 Blood Pressure [Left] O2 Sat by Pulse 100 Oximetry NEERAJ score - Neeraj Score Age > 65: (0) No Aspirin use within the Past 7 Days: (0) No 3 or more CAD Risk Factors: (1) Yes 2 or more Angina events in past 24 hrs: (1) Yes Known CAD with more than 50% Stenosis: (0) No Elevated Cardiac Markers: (1) Yes ST Deviation Greater than 0.5mm: (0) No NEERAJ Score: 3 ED Medical Decision Making - Lab Data Result diagrams: 04/30/17 06:33 04/30/17 06:33 - EKG Data -: EKG Interpreted by Me EKG shows normal: sinus rhythm, axis, intervals, QRS complexes, ST-T waves (T- wave inversion to the lateral leads) Rate: normal - EKG Data When compared to previous EKG there are: previous EKG unavailable Interpretation: other (sinus rhythm, normal axis, normal intervals, T-wave inversion to the lateral leads) - Radiology Data Radiology results: report reviewed, image reviewed interpreted by me: Chest x-ray shows some cardiomegaly and pulmonary vascular congestion. No obvious pneumonia. No pneumothorax. LUNG SCAN, VENTILATION AND PERFUSION: History: Chest pain, elevated d-dimer. Technique: 5mci of Tc99m MAA was infused for the perfusion images. 15mci XE 133 gas was inhaled for the ventilatory images. Correlation is made with a chest x-ray dated 04/30/17. Findings: Inhalation of Xenon gas demonstrates a normal distribution of the activity throughout both lungs. The wash out phases show no focal retention of activity. After injection of Technetium 99m macroaggregated albumin gamma camera imaging of the lungs in multiple projections demonstrates normal pulmonary contours with a homogeneous distribution of activity. No focal areas of perfusion deficiency are identified. IMPRESSION: Low probability for pulmonary embolus. Transcribed By: TTR Dictated By: WOLFGANG CASTILLO JR, MD Electronically Authenticated By: WOLFGANG CASTILLO JR, MD Signed Date/Time: 04/30/17 1117 - Medical Decision Making 61-year-old female presents after waking up early this morning with chest pain and shortness of breath. She has end-stage renal disease. There is some volume overload but the patient does not appear in any acute distress. Elevated d-dimer so VQ scan was done that was low probability for pulmonary embolus. EKG did not show any signs of this elevation IL. She'll be admitted to the hospital for further evaluation and treatment and has been accepted for admission by the hospitalist, Dr. Guardado. - Differential Diagnosis CHF, PE, IL, Costochondritis Critical Care Time: No Critical care attestation.: If time is entered above; I have spent that time in minutes in the direct care of this critically ill patient, excluding procedure time. ED Disposition Clinical Impression: ESRD (end stage renal disease) on dialysis CHF (congestive heart failure) Qualifiers: Congestive heart failure type: unspecified congestive heart failure type Congestive heart failure chronicity: acute on chronic Qualified Code(s): I50.9 - Heart failure, unspecified Hypertension Qualifiers: Hypertension type: renovascular hypertension Qualified Code(s): I15.0 - Renovascular hypertension Chest pain Qualifiers: Chest pain type: unspecified Qualified Code(s): R07.9 - Chest pain, unspecified Disposition: -09 OP ADMIT IP TO THIS HOSP Is pt being admited?: Yes Condition: Fair Instructions: Hypertension (ED), Chest Pain (ED) Referrals: ROBERTH FELIX MD [Primary Care Provider] - 3-5 Days Time of Disposition: 13:03
[2017-04-30 08:25] LABS: INR 0.89 (0.87-1.13)
[2017-04-30 08:26] LABS: Partial Thromboplastin Time 29.9 Sec. (24.2-36.6)
--- NOTE | 2017-04-30 08:53 | XRay Report ---
AP CHEST: HISTORY: Short of breath There is increased cardiomegaly, vascular congestion and small to medium bilateral pleural effusions since 04/18/17. There is poor aeration of the lower lobes secondary to compressive atelectasis. The upper lung zones are clear. Right IJ venous catheter remains in adequate position. IMPRESSION: CHF.
[2017-04-30] MEDS ORDERED: APRESOLINE IV ONE (09:57)
[2017-04-30] MEDS ORDERED: NITROSTAT SL ONE (10:11)
--- NOTE | 2017-04-30 11:21 | Nuclear Medicine Report ---
LUNG SCAN, VENTILATION AND PERFUSION: History: Chest pain, elevated d-dimer. Technique: 5mci of Tc99m MAA was infused for the perfusion images. 15mci XE 133 gas was inhaled for the ventilatory images. Correlation is made with a chest x-ray dated 04/30/17. Findings: Inhalation of Xenon gas demonstrates a normal distribution of the activity throughout both lungs. The wash out phases show no focal retention of activity. After injection of Technetium 99m macroaggregated albumin gamma camera imaging of the lungs in multiple projections demonstrates normal pulmonary contours with a homogeneous distribution of activity. No focal areas of perfusion deficiency are identified. IMPRESSION: Low probability for pulmonary embolus.
--- NOTE | 2017-04-30 12:25 | History and Physical Report ---
History of Present Illness Chief complaint: Its hard to breathe, History of present illness: 61 YO Female with HTN, CHF, DM, ESRD on HD(T,R,Sa), HLD presents to ED for evaluation. Pt unable to provide history. Pt history given by son who is at the bedside during exam and interview. As per son, patient has complained of shortness of breath for the past day with worsening symptoms since 0300hrs today. Symptoms awoke patient from sleep. Son acknowledges Orthopnea/PND as well as leg swelling. Pt son states that patient took hydralazine without improvement in symptoms. No reports of fever, chills, CP, Palpitations, NVD, productive cough, BRBPR, Seizures, Trauma, recent ill contacts. Pt is noncompliant with renal and cardiac diet but compliant with medications. Pt seen and evaluated in ED and found to be in respiratory distress. Nephrology consulted in ED. Past History Past Medical History: diabetes, ESRD, heart failure, hypertension, hyperlipidemia Past Surgical History: Other (VAs Cath) Social history: single. denies: smoking, alcohol abuse, prescription drug abuse Family history: hypertension Medications and Allergies Allergies Allergy/AdvReac Type Severity Reaction Status Date / Time codeine Allergy Hives Verified 07/26/16 07:29 morphine Allergy confusion Verified 07/26/16 07:29 Penicillins Allergy Hives Verified 07/26/16 07:29 Home Medications Medication Instructions Recorded Confirmed Last Taken Type glipiZIDE [Glucotrol] 10 mg PO BID 04/27/15 04/30/17 04/29/17 History Metoprolol [Lopressor TAB] 50 mg PO BID #60 tablet 04/05/17 04/30/17 04/29/17 Rx Pantoprazole [Protonix TAB] 40 mg PO DAILY #30 tablet 04/05/17 04/30/17 Rx Pravastatin [Pravachol] 20 mg PO QHS #30 tablet 04/05/17 04/30/17 04/29/17 Rx Sodium Bicarbonate 650 mg PO TID #90 tablet 04/05/17 04/30/17 04/29/17 Rx hydrALAZINE [Apresoline TAB] 25 mg PO Q8HR #90 tablet 04/05/17 04/30/17 04:00 Rx Bumetanide [Bumex 1 mg tab] 1 mg PO BID 04/30/17 04/30/17 04/29/17 History Pentoxifylline 400 mg PO TID 04/30/17 04/30/17 04/29/17 History Vit B Comp No.3/Folic/C/Biotin 1 each PO DAILY 04/30/17 04/30/17 04/29/17 History [Nephro-Chip Rx Tablet] Review of Systems ROS unobtainable: due to mental status Exam - Constitutional Vitals: Temp Pulse Resp BP Pulse Ox 98.4 F 87 29 H 171/92 100 04/30/17 06:18 04/30/17 10:20 04/30/17 10:00 04/30/17 10:20 04/30/17 10:00 General appearance: Present: mild distress - EENT Eyes: Present: PERRL - Neck Neck: Present: supple, normal ROM, masses or JVD - Respiratory Respiratory effort: labored Respiratory: bilateral: diminished, rhonchi - Cardiovascular Rhythm: regular - Extremities Extremities: pulses symmetrical, No edema Peripheral Pulses: within normal limits - Abdominal General gastrointestinal: Present: soft, non-distended Female genitourinary: Present: normal - Integumentary Integumentary: Present: clear, dry - Musculoskeletal Musculoskeletal: generalized weakness - Psychiatric Psychiatric: no intact judgment & insight, no memory intact - Neurologic Neurologic: CNII-XII intact, no gait normal Results - Labs CBC & Chem 7: 04/30/17 06:33 04/30/17 06:33 Labs: Abnormal lab results 04/30/17 04/30/17 04/30/17 Range/Units 06:33 06:33 07:45 RBC 3.14 L (3.65-5.03) M/mm3 Hgb 9.1 L (10.1-14.3) gm/dl Hct 28.3 L (30.3-42.9) % RDW 15.3 H (13.2-15.2) % Seg Neutrophils % 71.0 H (40.0-70.0) % D-Dimer 1589.45 H (0-234) ng/mlDDU BUN 37 H (7-17) mg/dL Creatinine 4.0 H (0.7-1.2) mg/dL Glucose 117 H (65-100) mg/dL Troponin T 0.194 H* (0.00-0.029) ng/mL Triglycerides 170 H (2-149) mg/dL HDL Cholesterol 71 H (40-59) mg/dL 04/30/17 Range/Units 09:24 RBC (3.65-5.03) M/mm3 Hgb (10.1-14.3) gm/dl Hct (30.3-42.9) % RDW (13.2-15.2) % Seg Neutrophils % (40.0-70.0) % D-Dimer (0-234) ng/mlDDU BUN (7-17) mg/dL Creatinine (0.7-1.2) mg/dL Glucose (65-100) mg/dL Troponin T 0.188 H* (0.00-0.029) ng/mL Triglycerides (2-149) mg/dL HDL Cholesterol (40-59) mg/dL Assessment and Plan - Patient Problems (1) CHF (congestive heart failure) Current Visit: Yes Status: Acute Qualifiers: Congestive heart failure type: unspecified congestive heart failure type Congestive heart failure chronicity: acute on chronic Qualified Code(s): I50.9 - Heart failure, unspecified Plan to address problem: CHF protocol: Afterload reduction, monitor uop q shift, low sodium diet, diuresis, supplemental oxygen,nebs, aspiration precautions, urgent dialysis, fluid restriction, continue medical management. (2) Acute hypoxemic respiratory failure Current Visit: Yes Status: Acute Plan to address problem: Supplemental oxygen,nebs, aspiration precautions, telemetry, pulmonary toilet, NIPPV as clinically indicated. (3) HTN (hypertension) Current Visit: Yes Status: Acute Plan to address problem: Accelerated Hypertension: monitor bp q shift, continue medical management, diuresis, urgent dialysis, IV hydralazine prn (4) Diabetes Current Visit: Yes Status: Acute Plan to address problem: ADA diet, insulin, accu check, (5) ESRD (end stage renal disease) on dialysis Current Visit: Yes Status: Acute Plan to address problem: Nephrology consulted for dialysis, monitor uop q shift, (6) DVT prophylaxis Current Visit: Yes Status: Acute
[2017-04-30] MEDS ORDERED: ZOFRAN IV PRN (12:29)
[2017-04-30] MEDS ORDERED: TYLENOL PO PRN (12:29)
[2017-04-30] MEDS ORDERED: D50W (25GM) Syringe IV PRN (12:33)
[2017-04-30] MEDS ORDERED: D50W (25GM) Vial IV PRN (13:36)
[2017-04-30] MEDS: APRESOLINE PO SCH ×2 (14:47→23:10)
[2017-04-30] MEDS: TRENTAL PO SCH (16:28)
[2017-04-30] MEDS: SODIUM BICARBONATE PO SCH ×2 (16:28→20:41)
[2017-04-30] MEDS: NOVOLOG SUB-Q SCH ×2 (18:00→23:10)
[2017-04-30] MEDS: LASIX IV SCH (18:00)
[2017-04-30] MEDS: LOPRESSOR PO SCH (23:10)
[2017-04-30] MEDS: BUMEX PO SCH (23:10)
[2017-04-30] MEDS: PEPCID PO SCH (23:11)
[2017-04-30] MEDS: PRAVACHOL PO SCH (23:11)
[2017-05-01] MEDS ORDERED: DILAUDID PO PRN (00:31)
[2017-05-01] MEDS: TRENTAL PO SCH ×3 (01:07→21:04)
[2017-05-01] MEDS: PROVENTIL IH PRN (04:16)
[2017-05-01] MEDS: APRESOLINE PO SCH ×3 (06:45→21:02)
[2017-05-01] MEDS: LASIX IV SCH (06:45)
[2017-05-01] MEDS: NOVOLOG SUB-Q SCH ×4 (07:30→22:17)
[2017-05-01] MEDS: LOPRESSOR PO SCH ×2 (10:00→21:03)
[2017-05-01] MEDS: PEPCID PO SCH (10:00)
[2017-05-01] MEDS: SODIUM BICARBONATE PO SCH ×3 (10:00→20:55)
[2017-05-01] MEDS ORDERED: NON-FORMULARY (Vit B Comp No.3/Folic/C/Biotin [Nephro-Vite Rx Tablet] 1 EACH) PO SCH (10:00)
[2017-05-01] MEDS: Renal Caps PO SCH (10:00)
--- NOTE | 2017-05-01 11:12 | Consultation ---
History of Present Illness - Reason for Consult Consult date: 05/01/17 end stage renal disease - History of Present Illness patient with h/o ESRD on HD every TTS last treatment was Sunday, came to the ED last night due to worsening SOB and swelling in feet, in the ED she was found to have pulm congestion on CXR, V/Q scan was negative for PE. renal consult was requested for management of HD Past History Past Medical History: diabetes, ESRD, heart failure, hypertension, hyperlipidemia Past Surgical History: Other (VAs Cath) Social history: single. denies: smoking, alcohol abuse, prescription drug abuse Family history: hypertension Medications and Allergies Allergies Allergy/AdvReac Type Severity Reaction Status Date / Time codeine Allergy Hives Verified 07/26/16 07:29 morphine Allergy confusion Verified 07/26/16 07:29 Penicillins Allergy Hives Verified 07/26/16 07:29 Home Medications Medication Instructions Recorded Confirmed Last Taken Type glipiZIDE [Glucotrol] 10 mg PO BID 04/27/15 04/30/17 04/29/17 History Metoprolol [Lopressor TAB] 50 mg PO BID #60 tablet 04/05/17 04/30/17 04/29/17 Rx Pantoprazole [Protonix TAB] 40 mg PO DAILY #30 tablet 04/05/17 04/30/17 Rx Pravastatin [Pravachol] 20 mg PO QHS #30 tablet 04/05/17 04/30/17 04/29/17 Rx Sodium Bicarbonate 650 mg PO TID #90 tablet 04/05/17 04/30/17 04/29/17 Rx hydrALAZINE [Apresoline TAB] 25 mg PO Q8HR #90 tablet 04/05/17 04/30/17 04:00 Rx Bumetanide [Bumex 1 mg tab] 1 mg PO BID 04/30/17 04/30/17 04/29/17 History Pentoxifylline 400 mg PO TID 04/30/17 04/30/17 04/29/17 History Vit B Comp No.3/Folic/C/Biotin 1 each PO DAILY 04/30/17 04/30/17 04/29/17 History [Nephro-Chip Rx Tablet] Active Meds: Active Medications Acetaminophen (Tylenol) 650 mg PO Q4H PRN PRN Reason: Pain MILD(1-3)/Fever >100.5/MACK Last Admin: 05/01/17 01:06 Dose: 650 mg Albuterol (Proventil) 2.5 mg IH Q4HRT PRN PRN Reason: Shortness Of Breath Last Admin: 05/01/17 04:16 Dose: 2.5 mg Bumetanide (Bumex) 1 mg PO BID [facility] Last Admin: 04/30/17 23:10 Dose: 1 mg Dextrose (D50w (25gm) Vial) 25 gm IV PRN PRN PRN Reason: Hypoglycemia Famotidine (Pepcid) 20 mg PO DAILY [facility] Last Admin: 04/30/17 23:11 Dose: 20 mg Furosemide (Lasix) 20 mg IV BID@0600,1800 [facility] Last Admin: 05/01/17 06:45 Dose: 20 mg Hydralazine HCl (Apresoline) 25 mg PO Q8HR [facility] Last Admin: 05/01/17 06:45 Dose: 25 mg Hydromorphone HCl (Dilaudid) 1 mg PO Q6H PRN PRN Reason: Pain , Severe (7-10) Insulin Aspart (Novolog) 0 units SUB-Q ACHS [facility] PRN Reason: Protocol Last Admin: 04/30/17 23:10 Dose: 3 units Metoprolol Tartrate (Lopressor) 50 mg PO BID [facility] Last Admin: 04/30/17 23:10 Dose: 50 mg Multivit/Ca Carb/B Cmplx/FA/Prenat (Renal Caps) 1 cap PO QDAY [facility] Ondansetron HCl (Zofran) 4 mg IV Q8H PRN PRN Reason: N/V unrelieved by Reglan Pentoxifylline (Trental) 400 mg PO BID [facility] Last Admin: 05/01/17 01:07 Dose: Not Given Pravastatin Sodium (Pravachol) 20 mg PO QHS [facility] Last Admin: 04/30/17 23:11 Dose: 20 mg Sodium Bicarbonate (Sodium Bicarbonate) 650 mg PO TID [facility] Last Admin: 04/30/17 20:41 Dose: 650 mg Review of Systems All systems: negative (weakness, SOB, swelling in lower ext) Exam - Vital Signs Vital signs: Vital Signs Temp Pulse Resp BP Pulse Ox 98.4 F 71 20 159/52 100 04/30/17 06:18 04/30/17 06:18 04/30/17 06:18 04/30/17 06:18 04/30/17 06:18 - General Appearance General appearance: well-developed, well-nourished, cachectic EENT: ATNC, PERRL, mucous membranes moist Neck: Present: neck supple Respiratory: Rales, Decreased Breath Sounds Heart: regular, S1S2 Gastrointestinal: Present: normoactive bowel sounds, obese. Absent: tenderness , distended Integumentary: no rash, warm and dry Neurologic: no focal deficit, no asterixis, alert and oriented x3 Musculoskeletal: Present: other (1+ pitting edema in BLE) Psychiatric: mood/affect appropriate, cooperative Results - Lab Results 04/30/17 06:33 04/30/17 06:33 Most recent lab results Calcium 8.9 mg/dL (8.4-10.2) 04/30/17 06:33 Assessment and Plan - Patient Problems (1) Acute hypoxemic respiratory failure Current Visit: Yes Status: Acute Plan to address problem: on loop diuretics will order HD with ultrafiltration (2) ESRD (end stage renal disease) on dialysis Current Visit: Yes Status: Acute Plan to address problem: HD today for clearance and volume removal will order HD again tomorrow for Dry UF will assess dialysis needs daily strict I&O renally dose meds renal diet (3) HTN (hypertension) Current Visit: Yes Status: Acute Plan to address problem: will adjust BP meds as needed UF as above (4) Anemia Current Visit: No Status: Acute Plan to address problem: Epogen with HD (5) Diabetes mellitus Current Visit: No Status: Acute Plan to address problem: per primary team
[2017-05-01] MEDS ORDERED: NACL 0.9% 100 ML IV PRN (11:42)
[2017-05-01] MEDS ORDERED: NACL 0.9 (PRIMING MACHINE ONLY DIALYSIS) MC ONE (15:57)
--- NOTE | 2017-05-01 16:55 | Progress Note ---
Assessment and Plan Assessment and plan: Fluid overload ESRD on HD Acute hypoxic respiratory failure Acute on chronic systolic CHF exacerbation Diabetes mellitus type 2 Obesity Anemia of chronic Illness - Nephrology consulted and she'll get hemodialysis - Continue appropriate home medications - Oxygen support - Cardiology and pulmonary consulted\ DVT prophylaxis - On heparin Disposition - Continue inpatient care History Interval history: Patient was seen and evaluated this morning, she is complaining shortness of breath, denied chest pain. Hospitalist Physical - Physical exam Narrative exam: Not in cardiopulmonary distress. The patient is obese. Vital signs as documented. Head exam is unremarkable. No scleral icterus . Neck is without jugular venous distension, thyromegaly, or carotid bruits. Lungs are clear to auscultation. Cardiac exam reveals regular rate and Rhythm. First and second heart sounds normal. No murmurs, rubs or gallops. Abdominal exam reveals normal bowel sounds, no masses, no organomegaly and no aortic enlargement. Extremities are nonedematous and both femoral and pedal pulses are normal. [employer]ENTICE: Alert and oriented 3. No focal weakness. - Constitutional Vitals: Temp Pulse Resp BP Pulse Ox 98.8 F 82 22 184/89 99 05/01/17 11:50 05/01/17 15:30 05/01/17 11:50 05/01/17 15:30 05/01/17 09:39 General appearance: Present: mild distress Results - Labs CBC & Chem 7: 04/30/17 06:33 04/30/17 06:33 Labs: Laboratory Last Values WBC 9.7 K/mm3 (4.5-11.0) 04/30/17 06:33 RBC 3.14 M/mm3 (3.65-5.03) L 04/30/17 06:33 Hgb 9.1 gm/dl (10.1-14.3) L 04/30/17 06:33 Hct 28.3 % (30.3-42.9) L 04/30/17 06:33 MCV 90 fl (79-97) 04/30/17 06:33 MCH 29 pg (28-32) 04/30/17 06:33 MCHC 32 % (30-34) 04/30/17 06:33 RDW 15.3 % (13.2-15.2) H 04/30/17 06:33 Plt Count 215 K/mm3 (140-440) 04/30/17 06:33 Lymph % (Auto) 17.6 % (13.4-35.0) 04/30/17 06:33 Potter % (Auto) 7.3 % (0.0-7.3) 04/30/17 06:33 Eos % (Auto) 3.1 % (0.0-4.3) 04/30/17 06:33 Baso % (Auto) 1.0 % (0.0-1.8) 04/30/17 06:33 Lymph # 1.7 K/mm3 (1.2-5.4) 04/30/17 06:33 Potter # 0.7 K/mm3 (0.0-0.8) 04/30/17 06:33 Eos # 0.3 K/mm3 (0.0-0.4) 04/30/17 06:33 Baso # 0.1 K/mm3 (0.0-0.1) 04/30/17 06:33 Seg Neutrophils % 71.0 % (40.0-70.0) H 04/30/17 06:33 Seg Neutrophils # 6.9 K/mm3 (1.8-7.7) 04/30/17 06:33 PT 12.5 Sec. (12.2-14.9) 04/30/17 07:45 INR 0.89 (0.87-1.13) 04/30/17 07:45 APTT 29.9 Sec. (24.2-36.6) 04/30/17 07:45 D-Dimer 1589.45 ng/mlDDU (0-234) H 04/30/17 07:45 Sodium 144 mmol/L (137-145) 04/30/17 06:33 Potassium 4.5 mmol/L (3.6-5.0) 04/30/17 06:33 Chloride 102.0 mmol/L (98-107) 04/30/17 06:33 Carbon Dioxide 29 mmol/L (22-30) 04/30/17 06:33 Anion Gap 18 mmol/L 04/30/17 06:33 BUN 37 mg/dL (7-17) H 04/30/17 06:33 Creatinine 4.0 mg/dL (0.7-1.2) H 04/30/17 06:33 Estimated GFR 11 ml/min 04/30/17 06:33 BUN/Creatinine Ratio 9 % 04/30/17 06:33 Glucose 117 mg/dL (65-100) H 04/30/17 06:33 POC Glucose 247 (70-105) H 05/01/17 11:45 Calcium 8.9 mg/dL (8.4-10.2) 04/30/17 06:33 Troponin T 0.179 ng/mL (0.00-0.029) H* 04/30/17 11:49 Triglycerides 170 mg/dL (2-149) H 04/30/17 06:33 Cholesterol 165 mg/dL (50-199) 04/30/17 06:33 LDL Cholesterol Direct 60 mg/dL (50-130) 04/30/17 06:33 HDL Cholesterol 71 mg/dL (40-59) H 04/30/17 06:33 Cholesterol/HDL Ratio 2.32 % 04/30/17 06:33 - Imaging and Cardiology Chest x-ray: image reviewed (pulmonary congestion)
[2017-05-01] MEDS: BUMEX PO SCH ×2 (18:11→21:00)
[2017-05-01] MEDS: HEPARIN IV PRN (18:48)
[2017-05-01 18:50] LABS: Calcium 8.1 mg/dL (8.4-10.2); Chloride 100.6 mmol/L (98-107); Potassium 3.9 mmol/L (3.6-5.0)
--- NOTE | 2017-05-01 19:43 | Event Note ---
Date: 05/01/[address] Todd thank you for asking me to participate in the care of this patient. Full consultation follow. This 61 year old female with history of hypertension,CHF,DM,ESRD on Hemodialysis and Hyperlipidemia admitted through emergency room with shortness of breath and non productive cough.Patient also complaining, Orthopnia, PND and swelling of legs.Slight chest pain. No fever, no chills.Patient has no history of smoking,alcohol or drug abuse.Allergic to codeine and morphine. Impression: 1. Acute exacerbation of CHF. 2. Bilateral pleural effusions. 3. ESRD on hemodialysis. 4. Hypertension. 5. Diabetes 6. Hyperlipidemia. PLAN: 1. O2 2litres via nasal canula. 2. ABGs on 2 litres O2. 3. Ultrasound of chest. 4. Albuterol inhalor 2 puffs po q 6 hours prn for wheezing and shortness of breath. 5. Continue S/C Heparin 6. Continue famotadine. 7. Recommend Z- Joo. n
[2017-05-01] MEDS: PRAVACHOL PO SCH (21:04)
[2017-05-02] MEDS: APRESOLINE PO SCH ×3 (06:17→21:16)
[2017-05-02 06:19] LABS: Basophils % (Auto) 1.3 % (0.0-1.8); Hematocrit 27.7 % (30.3-42.9); Hemoglobin 9.1 gm/dl (10.1-14.3); Mean Corpuscular HGB Conc 33 % (30-34); Mean Corpuscular Hemoglobin 29 pg (28-32); Mean Corpuscular Volume 90 fl (79-97); Platelet Count 197 K/mm3 (140-440); Red Blood Count 3.09 M/mm3 (3.65-5.03)
[2017-05-02 06:36] LABS: Calcium 8.5 mg/dL (8.4-10.2); Potassium 3.9 mmol/L (3.6-5.0)
[2017-05-02] MEDS: NOVOLOG SUB-Q SCH ×3 (08:00→17:20)
[2017-05-02] MEDS: BUMEX PO SCH ×2 (10:00→21:16)
[2017-05-02] MEDS: TRENTAL PO SCH ×2 (10:00→21:16)
[2017-05-02] MEDS: LOPRESSOR PO SCH ×2 (10:00→21:16)
--- NOTE | 2017-05-02 10:00 | Ultrasound Report ---
Sonogram right and left chest: History: Pleural effusion. Findings: Right chest pleural effusion 647.0 cubic centimeter. Left chest pleural effusion 711.1 cubic centimeter. Impression: Findings as detailed above.
[2017-05-02] MEDS ORDERED: NACL 0.9 (PRIMING MACHINE ONLY DIALYSIS) MC ONE (10:12)
[2017-05-02] MEDS: SODIUM BICARBONATE PO SCH ×3 (10:15→21:16)
[2017-05-02] MEDS: Renal Caps PO SCH (10:16)
[2017-05-02] MEDS: PEPCID PO SCH (10:16)
[2017-05-02] MEDS: PROCRIT IV PRN (12:44)
--- NOTE | 2017-05-02 13:00 | Consultation ---
History of Present Illness Consult date: 05/02/17 Consult reason: chest pain History of present illness: 61 year old female admitted with chest pain and shortness of breath. This is her third admission with similar complaints. MPI recently showed evidence of a fixed anterior and apical wall defect suggesting prior infarct in the LAD distribution. Echo revealed LVEF 40-45%. Accoding to her dialysis nurse. it seems like they have not been able to pull much fluid per session due to cramping and drop in blood pressure. ECG is unchanged anf troponin is chronically elevated. Past History Past Medical History: diabetes, ESRD, heart failure, hypertension, hyperlipidemia Past Surgical History: Other (VAs Cath) Social history: single. denies: smoking, alcohol abuse, prescription drug abuse Family history: hypertension Medications and Allergies Allergies Allergy/AdvReac Type Severity Reaction Status Date / Time codeine Allergy Hives Verified 07/26/16 07:29 morphine Allergy confusion Verified 07/26/16 07:29 Penicillins Allergy Hives Verified 07/26/16 07:29 Home Medications Medication Instructions Recorded Confirmed Last Taken Type glipiZIDE [Glucotrol] 10 mg PO BID 04/27/15 04/30/17 04/29/17 History Metoprolol [Lopressor TAB] 50 mg PO BID #60 tablet 04/05/17 04/30/17 04/29/17 Rx Pantoprazole [Protonix TAB] 40 mg PO DAILY #30 tablet 04/05/17 04/30/17 Rx Pravastatin [Pravachol] 20 mg PO QHS #30 tablet 04/05/17 04/30/17 04/29/17 Rx Sodium Bicarbonate 650 mg PO TID #90 tablet 04/05/17 04/30/17 04/29/17 Rx hydrALAZINE [Apresoline TAB] 25 mg PO Q8HR #90 tablet 04/05/17 04/30/17 04:00 Rx Bumetanide [Bumex 1 mg tab] 1 mg PO BID 04/30/17 04/30/17 04/29/17 History Pentoxifylline 400 mg PO TID 04/30/17 04/30/17 04/29/17 History Vit B Comp No.3/Folic/C/Biotin 1 each PO DAILY 04/30/17 04/30/17 04/29/17 History [Nephro-Chip Rx Tablet] Active Meds: Active Medications Acetaminophen (Tylenol) 650 mg PO Q4H PRN PRN Reason: Pain MILD(1-3)/Fever >100.5/MACK Last Admin: 05/01/17 01:06 Dose: 650 mg Albuterol (Proventil) 2.5 mg IH Q4HRT PRN PRN Reason: Shortness Of Breath Last Admin: 05/01/17 04:16 Dose: 2.5 mg Bumetanide (Bumex) 1 mg PO BID [facility] Last Admin: 05/01/17 21:00 Dose: 1 mg Dextrose (D50w (25gm) Vial) 25 gm IV PRN PRN PRN Reason: Hypoglycemia Epoetin Eric (Procrit) 10,000 unit IV [facility] PRN PRN Reason: hemodialysis Last Admin: 05/02/17 12:44 Dose: 10,000 unit Famotidine (Pepcid) 20 mg PO DAILY [facility] Last Admin: 05/02/17 10:16 Dose: 20 mg Heparin Sodium (Porcine) (Heparin) 5,000 unit IV [place] PRN PRN Reason: hemodialysis Last Admin: 05/01/17 18:48 Dose: 5,000 unit Hydralazine HCl (Apresoline) 25 mg PO Q8HR [facility] Last Admin: 05/02/17 06:17 Dose: 25 mg Hydromorphone HCl (Dilaudid) 1 mg PO Q6H PRN PRN Reason: Pain , Severe (7-10) Sodium Chloride (Nacl 0.9%) 100 mls @ 999 mls/hr IV [facility] PRN PRN Reason: Hypotension Insulin Aspart (Novolog) 0 units SUB-Q ACHS [facility] PRN Reason: Protocol Last Admin: 05/02/17 08:00 Dose: 3 units Metoprolol Tartrate (Lopressor) 50 mg PO BID [facility] Last Admin: 05/01/17 21:03 Dose: 50 mg Multivit/Ca Carb/B Cmplx/FA/Prenat (Renal Caps) 1 cap PO QDAY [facility] Last Admin: 05/02/17 10:16 Dose: 1 cap Ondansetron HCl (Zofran) 4 mg IV Q8H PRN PRN Reason: N/V unrelieved by Reglan Pentoxifylline (Trental) 400 mg PO BID [facility] Last Admin: 05/01/17 21:04 Dose: 400 mg Pravastatin Sodium (Pravachol) 20 mg PO QHS [facility] Last Admin: 05/01/17 21:04 Dose: 20 mg Sodium Bicarbonate (Sodium Bicarbonate) 650 mg PO TID [facility] Last Admin: 05/02/17 10:15 Dose: 650 mg Review of Systems All systems: negative Physical Examination Vital Signs Temp Pulse Resp BP Pulse Ox 98.4 F 71 20 159/52 100 04/30/17 06:18 04/30/17 06:18 04/30/17 06:18 04/30/17 06:18 04/30/17 06:18 General appearance: no acute distress HEENT: Positive: PERRL Neck: Positive: neck supple Cardiac: Positive: Reg Rate and Rhythm Lungs: Positive: Decreased Breath Sounds Results 05/02/17 04:00 05/02/17 04:00 CBC 05/02/17 Range/Units 04:00 WBC 8.0 (4.5-11.0) K/mm3 RBC 3.09 L (3.65-5.03) M/mm3 Hgb 9.1 L (10.1-14.3) gm/dl Hct 27.7 L (30.3-42.9) % Plt Count 197 (140-440) K/mm3 Lymph # 1.4 (1.2-5.4) K/mm3 [place] # 0.5 (0.0-0.8) K/mm3 Eos # 0.2 (0.0-0.4) K/mm3 Baso # 0.1 (0.0-0.1) K/mm3 Comprehensive Metabolic Panel 05/01/17 05/02/17 Range/Units 18:21 04:00 Sodium 142 141 (137-145) mmol/L Potassium 3.9 3.9 (3.6-5.0) mmol/L Chloride 100.6 101.0 (98-107) mmol/L Carbon Dioxide 27 27 (22-30) mmol/L BUN 15 20 H (7-17) mg/dL Creatinine 2.3 H 3.3 H (0.7-1.2) mg/dL Glucose 191 H 194 H (65-100) mg/dL Calcium 8.1 L 8.5 (8.4-10.2) mg/dL EKG interpretations - Telemetry EKG Rhythm: Sinus Rhythm Assessment and Plan Acute on chronic combined heart failure Cardiomyopathy, LVEF 40-45% Abnormal MPI suggesting prior infarct in the LAD distribution Attempt at cath in te past failed due to inability to gain arterial access Vascular US on the LE done 03/2017 showed normal arterial flow in the LE with no focal stenosis ESRD on HD Not able to pull greater than 2-2.5 L per session due to cramping and drop in blood pressure Chronic anemia with a stable hemoglobin Recommendations: In the setting of recurrent heart failure hospitalizations, it would be prudent to attempt coronary angiography again with ultrasound to guide vascular access Will schedule for a LHC in am
[2017-05-02] MEDS ORDERED: NACL 0.9% 100 ML IV PRN (13:46)
[2017-05-02] MEDS ORDERED: NACL 0.9% 500 ML 500 ML IV SCH (14:00)
--- NOTE | 2017-05-02 14:36 | Progress Note ---
Assessment and Plan (1) Acute hypoxemic respiratory failure Current Visit: Yes Status: Acute Plan to address problem: on loop diuretics s/p HD yesterday, Extra HD today for volume overload. (2) ESRD (end stage renal disease) on dialysis Current Visit: Yes Status: Acute Plan to address problem: On TTS HD OP. s/p HD yesterday, Extra HD today for volume overload. HD tomorrow per TTS schedule. will assess dialysis needs daily strict I&O renally dose meds renal diet (3) HTN (hypertension) Current Visit: Yes Status: Acute Plan to address problem: Titrate BP meds PRN to keep SBP <140 (4) Anemia Current Visit: No Status: Acute Plan to address problem: Epogen to keep Hg 10-12 (5) Diabetes mellitus Current Visit: No Status: Acute Plan to address problem: per primary team Plan d/w HD RN. Sánchez Carmona MD Nephrology, Hypertension, Dialysis, Transplantation Phone no: [phone] Subjective Date of service: 05/02/17 Interval history: SHOB better. Seen on HD. Objective - Exam Narrative Exam: General appearance: well-developed, well-nourished, cachectic EENT: ATNC, PERRL, mucous membranes moist Neck: Present: neck supple Respiratory: BL Crackles Heart: regular, S1S2 Gastrointestinal: Present: normoactive bowel sounds, obese. Absent: tenderness , distended Integumentary: no rash, warm and dry Neurologic: no focal deficit, no asterixis, alert and oriented x3 Musculoskeletal: Present: other (1+ pitting edema in BLE) Psychiatric: mood/affect appropriate, cooperative - Vital Signs Vital signs: Vital Signs - 12hr 05/02/17 05/02/17 05/02/17 04:58 06:17 08:58 Temperature 98.5 F Pulse Rate 82 86 Respiratory 20 18 Rate Blood Pressure 153/53 180/63 Blood Pressure 159/72 [Left] O2 Sat by Pulse 100 99 Oximetry 05/02/17 05/02/17 05/02/17 10:25 10:30 10:45 Temperature 98.2 F Pulse Rate 79 78 77 Respiratory 18 Rate Blood Pressure 145/60 161/75 178/54 Blood Pressure [Left] O2 Sat by Pulse Oximetry 05/02/17 05/02/17 05/02/17 11:00 11:15 11:30 Temperature Pulse Rate 80 79 79 Respiratory Rate Blood Pressure 189/80 181/69 152/75 Blood Pressure [Left] O2 Sat by Pulse Oximetry 05/02/17 05/02/17 05/02/17 11:45 12:00 12:15 Temperature Pulse Rate 76 78 77 Respiratory Rate Blood Pressure 133/62 116/57 144/75 Blood Pressure [Left] O2 Sat by Pulse Oximetry 05/02/17 05/02/17 12:30 12:45 Temperature Pulse Rate 78 79 Respiratory Rate Blood Pressure 140/72 118/64 Blood Pressure [Left] O2 Sat by Pulse Oximetry - Lab 05/02/17 04:00 05/02/17 04:00 Most recent lab results Calcium 8.5 mg/dL (8.4-10.2) 05/02/17 04:00
[2017-05-02 15:32] LABS: INR 1.09 (0.87-1.13)
[2017-05-02] MEDS: HEPARIN IV PRN (15:51)
[2017-05-02] MEDS: BABY ASPIRIN PO SCH (16:24)
--- NOTE | 2017-05-02 16:39 | Progress Note ---
Assessment and Plan Assessment and plan: --Acute on chronic combined systolic and diastolic heart failure Ejection fraction 40-45%, continue current anti-failure medications, cardiology following --Recurrent hospitalizations with CHF exacerbation, optimize medications, possible heart cath tomorrow per cardiology --End Stage renal disease on hemodialysis per schedule, Nephrology following --Hypertension; moderate control, continue current antihypertensives and when necessary medications --Dyslipidemia; stable on lipid-lowering agents, low-cholesterol diet --Type 2 diabetes mellitus; Accu-Chek sliding scale coverage and ADA diet and glipizide --DVT prophylaxis; renal dose of heparin --Obesity; BMI 37.5, counseling done advised dietary modification exercise as tolerated and weight reduction when medically stable DC planning. Case management when medically stable Consults and recommendations noted and appreciated Follow left heart cath tomorrow, possible discharge in 1-2 days if stable History Interval history: Patient seen and examined in dialysis unit Patient is receiving HD, tolerating well Denies chest pain or shortness of breath Vital signs reviewed Hospitalist Physical - Constitutional Vitals: Temp Pulse Resp BP Pulse Ox 98.1 F 77 18 142/72 99 05/02/17 14:15 05/02/17 16:24 05/02/17 14:15 05/02/17 16:24 05/02/17 08:58 General appearance: Present: no acute distress, well-nourished, obese - EENT Eyes: Present: PERRL, EOM intact - Neck Neck: Present: supple, normal ROM - Respiratory Respiratory effort: normal Respiratory: bilateral: diminished, negative: rales, rhonchi, wheezing - Cardiovascular Rhythm: regular Heart Sounds: Present: S1 & S2 - Extremities Extremities: no ischemia, No edema - Abdominal General gastrointestinal: soft, non-tender, non-distended, normal bowel sounds - Integumentary Integumentary: Present: clear, warm - Psychiatric Psychiatric: appropriate mood/affect, cooperative - Neurologic Neurologic: CNII-XII intact, moves all extremities Results - Labs CBC & Chem 7: 05/02/17 04:00 05/02/17 04:00 Labs: Laboratory Last Values WBC 8.0 K/mm3 (4.5-11.0) 05/02/17 04:00 RBC 3.09 M/mm3 (3.65-5.03) L 05/02/17 04:00 Hgb 9.1 gm/dl (10.1-14.3) L 05/02/17 04:00 Hct 27.7 % (30.3-42.9) L 05/02/17 04:00 MCV 90 fl (79-97) 05/02/17 04:00 MCH 29 pg (28-32) 05/02/17 04:00 MCHC 33 % (30-34) 05/02/17 04:00 RDW 15.0 % (13.2-15.2) 05/02/17 04:00 Plt Count 197 K/mm3 (140-440) 05/02/17 04:00 Lymph % (Auto) 17.3 % (13.4-35.0) 05/02/17 04:00 Morris % (Auto) 5.8 % (0.0-7.3) 05/02/17 04:00 Eos % (Auto) 3.0 % (0.0-4.3) 05/02/17 04:00 Baso % (Auto) 1.3 % (0.0-1.8) 05/02/17 04:00 Lymph # 1.4 K/mm3 (1.2-5.4) 05/02/17 04:00 Morris # 0.5 K/mm3 (0.0-0.8) 05/02/17 04:00 Eos # 0.2 K/mm3 (0.0-0.4) 05/02/17 04:00 Baso # 0.1 K/mm3 (0.0-0.1) 05/02/17 04:00 Seg Neutrophils % 72.6 % (40.0-70.0) H 05/02/17 04:00 Seg Neutrophils # 5.8 K/mm3 (1.8-7.7) 05/02/17 04:00 PT 14.7 Sec. (12.2-14.9) 05/02/17 15:02 INR 1.09 (0.87-1.13) 05/02/17 15:02 APTT 29.9 Sec. (24.2-36.6) 04/30/17 07:45 D-Dimer 1589.45 ng/mlDDU (0-234) H 04/30/17 07:45 Sodium 141 mmol/L (137-145) 05/02/17 04:00 Potassium 3.9 mmol/L (3.6-5.0) 05/02/17 04:00 Chloride 101.0 mmol/L (98-107) 05/02/17 04:00 Carbon Dioxide 27 mmol/L (22-30) 05/02/17 04:00 Anion Gap 17 mmol/L 05/02/17 04:00 BUN 20 mg/dL (7-17) H 05/02/17 04:00 Creatinine 3.3 mg/dL (0.7-1.2) H 05/02/17 04:00 Estimated GFR 14 ml/min 05/02/17 04:00 BUN/Creatinine Ratio 6 % 05/02/17 04:00 Glucose 194 mg/dL (65-100) H 05/02/17 04:00 POC Glucose 209 (70-105) H 05/02/17 08:36 Calcium 8.5 mg/dL (8.4-10.2) 05/02/17 04:00 Troponin T 0.179 ng/mL (0.00-0.029) H* 04/30/17 11:49 Triglycerides 170 mg/dL (2-149) H 04/30/17 06:33 Cholesterol 165 mg/dL (50-199) 04/30/17 06:33 LDL Cholesterol Direct 60 mg/dL (50-130) 04/30/17 06:33 HDL Cholesterol 71 mg/dL (40-59) H 04/30/17 06:33 Cholesterol/HDL Ratio 2.32 % 04/30/17 06:33
[2017-05-02 18:29] LABS: ISTAT Base Excess 8; ISTAT HCO3 31.8; ISTAT PCO2 47.1 (35-45); ISTAT PH 7.438 (7.35-7.45); ISTAT PO2 86 (80-105); ISTAT SO2 97; ISTAT TCO2 33
--- NOTE | 2017-05-02 18:45 | Progress Note ---
Assessment and Plan Patient says breathing some what better. O2 saturation 100% on 2 litres O2.Ultrasound of chest bilateral pleural effusions.ABGs reported PH 7.43, PCO2 47, PO2 86, HCO3 32, O2 saturation 97% on 2 litres O2. - Patient Problems (1) CHF (congestive heart failure) Current Visit: Yes Status: Acute Qualifiers: Congestive heart failure type: unspecified congestive heart failure type Congestive heart failure chronicity: acute on chronic Qualified Code(s): I50.9 - Heart failure, unspecified Plan to address problem: Patient is on Bumex and Lopressor and hydralgine. Management as per cardiology. (2) Diabetes Current Visit: Yes Status: Acute Plan to address problem: Management as per primary care. (3) HTN (hypertension) Current Visit: Yes Status: Acute Plan to address problem: Management as per primary care. (4) ESRD (end stage renal disease) on dialysis Current Visit: Yes Status: Acute Plan to address problem: Management as per Nephrology. (5) Pleural effusion due to CHF (congestive heart failure) Current Visit: No Status: Acute Plan to address problem: Recommend thoracentesis. Subjective Date of service: 05/02/17 Interval history: Patient says breathing some what better. O2 saturation 100% on 2 litres O2.Ultrasound of chest bilateral pleural effusions.ABGs reported PH 7.43, PCO2 47, PO2 86, HCO3 32, O2 saturation 97% on 2 litres O2. 1. Acute exacerbation of CHF. 2. Bilateral pleural effusions. 3. ESRD on hemodialysis. 4. Hypertension. 5. Diabetes 6. Hyperlipidemia. PLAN: 1. O2 2litres via nasal canula. 2. ABGs on 2 litres O2. 3. Ultrasound of chest. 4. Albuterol inhalor 2 puffs po q 6 hours prn for wheezing and shortness of breath. 5. Continue S/C Heparin 6. Continue famotadine. 7. Recommend Z- Joo. Objective Vital Signs - 12hr 05/02/17 05/02/17 05/02/17 08:58 10:25 10:30 Temperature 98.5 F 98.2 F Pulse Rate 86 79 78 Respiratory 18 18 Rate Blood Pressure 145/60 161/75 Blood Pressure 159/72 [Left] O2 Sat by Pulse 99 Oximetry 05/02/17 05/02/17 05/02/17 10:45 11:00 11:15 Temperature Pulse Rate 77 80 79 Respiratory Rate Blood Pressure 178/54 189/80 181/69 Blood Pressure [Left] O2 Sat by Pulse Oximetry 05/02/17 05/02/17 05/02/17 11:30 11:45 12:00 Temperature Pulse Rate 79 76 78 Respiratory Rate Blood Pressure 152/75 133/62 116/57 Blood Pressure [Left] O2 Sat by Pulse Oximetry 05/02/17 05/02/17 05/02/17 12:15 12:30 12:45 Temperature Pulse Rate 77 78 79 Respiratory Rate Blood Pressure 144/75 140/72 118/64 Blood Pressure [Left] O2 Sat by Pulse Oximetry 05/02/17 05/02/17 05/02/17 13:00 13:15 13:30 Temperature Pulse Rate 76 75 75 Respiratory Rate Blood Pressure 133/65 140/66 123/64 Blood Pressure [Left] O2 Sat by Pulse Oximetry 05/02/17 05/02/17 05/02/17 13:45 14:00 14:15 Temperature 98.1 F Pulse Rate 76 76 77 Respiratory 18 Rate Blood Pressure 128/67 114/61 142/72 Blood Pressure [Left] O2 Sat by Pulse Oximetry 05/02/17 05/02/17 05/02/17 16:24 17:04 17:43 Temperature Pulse Rate 77 83 Respiratory Rate Blood Pressure 142/72 182/69 Blood Pressure [Left] O2 Sat by Pulse 100 100 Oximetry Constitutional: no acute distress, alert Eyes: non-icteric Ascultation: Bilateral: diminished breath sounds Cardiovascular: regular rate and rhythm Gastrointestinal: normoactive bowel sounds, soft, non-tender Integumentary: normal Extremities: no cyanosis, edema Neurologic: normal mental status, non-focal exam, pupils equal and round, CN II- XII normal Psychiatric: mood appropriate CBC and BMP: 05/02/17 04:00 05/02/17 04:00 ABG, PT/INR, D-dimer: ABG POC ABG pH 7.438 (7.35-7.45) 05/02/17 18:15 POC ABG pCO2 47.1 (35-45) H 05/02/17 18:15 POC ABG pO2 86 (80-105) 05/02/17 18:15 POC ABG HCO3 31.8 05/02/17 18:15 POC ABG Total CO2 33 05/02/17 18:15 POC ABG O2 Sat 97 05/02/17 18:15 PT/INR, D-dimer PT 14.7 Sec. (12.2-14.9) 05/02/17 15:02 INR 1.09 (0.87-1.13) 05/02/17 15:02 D-Dimer 1589.45 ng/mlDDU (0-234) H 04/30/17 07:45 Abnormal lab findings: Abnormal Labs 04/30/17 04/30/17 04/30/17 06:33 06:33 07:45 RBC 3.14 L Hgb 9.1 L Hct 28.3 L RDW 15.3 H Seg Neutrophils % 71.0 H D-Dimer 1589.45 H POC ABG pCO2 POC ABG pO2 BUN 37 H Creatinine 4.0 H Glucose 117 H POC Glucose Calcium Troponin T 0.194 H* Triglycerides 170 H HDL Cholesterol 71 H 04/30/17 04/30/17 04/30/17 09:24 11:49 17:12 RBC Hgb Hct RDW Seg Neutrophils % D-Dimer POC ABG pCO2 POC ABG pO2 BUN Creatinine Glucose POC Glucose 209 H Calcium Troponin T 0.188 H* 0.179 H* Triglycerides HDL Cholesterol 04/30/17 05/01/17 05/01/17 23:02 08:10 11:45 RBC Hgb Hct RDW Seg Neutrophils % D-Dimer POC ABG pCO2 POC ABG pO2 BUN Creatinine Glucose POC Glucose 216 H 154 H 247 H Calcium Troponin T Triglycerides HDL Cholesterol 05/01/17 05/01/17 05/01/17 17:49 18:21 21:53 RBC Hgb Hct RDW Seg Neutrophils % D-Dimer POC ABG pCO2 POC ABG pO2 BUN Creatinine 2.3 H Glucose 191 H POC Glucose 172 H 235 H Calcium 8.1 L Troponin T Triglycerides HDL Cholesterol 05/02/17 05/02/17 05/02/17 04:00 04:00 08:36 RBC 3.09 L Hgb 9.1 L Hct 27.7 L RDW Seg Neutrophils % 72.6 H D-Dimer POC ABG pCO2 POC ABG pO2 BUN 20 H Creatinine 3.3 H Glucose 194 H POC Glucose 209 H Calcium Troponin T Triglycerides HDL Cholesterol 05/02/17 05/02/17 05/02/17 16:31 17:09 18:15 RBC Hgb Hct RDW Seg Neutrophils % D-Dimer POC ABG pCO2 48.6 H 47.1 H POC ABG pO2 49 L BUN Creatinine Glucose POC Glucose 255 H Calcium Troponin T Triglycerides HDL Cholesterol Chest x-ray: report reviewed (Reported CHF), image reviewed Additional Studies: Ultrasound of chest reported Bilateral pleural effusions.
[2017-05-02] MEDS: PRAVACHOL PO SCH (21:16)
[2017-05-03 07:06] LABS: Basophils % (Auto) 1.1 % (0.0-1.8); Eosinophils % (Auto) 4.1 % (0.0-4.3); Hematocrit 25.9 % (30.3-42.9); Hemoglobin 8.4 gm/dl (10.1-14.3); Mean Corpuscular HGB Conc 33 % (30-34); Mean Corpuscular Hemoglobin 29 pg (28-32); Mean Corpuscular Volume 89 fl (79-97); Platelet Count 212 K/mm3 (140-440); Red Blood Count 2.93 M/mm3 (3.65-5.03); Red Cell Distribution Width 15.3 % (13.2-15.2); White Blood Count 7.4 K/mm3 (4.5-11.0)
[2017-05-03 07:20] LABS: Calcium 8.5 mg/dL (8.4-10.2); Chloride 100.4 mmol/L (98-107); Potassium 3.5 mmol/L (3.6-5.0)
[2017-05-03] MEDS: NOVOLOG SUB-Q SCH ×4 (08:00→23:01)
[2017-05-03] MEDS: SODIUM BICARBONATE PO SCH ×2 (09:00→16:53)
[2017-05-03] MEDS: PEPCID PO SCH (09:27)
[2017-05-03] MEDS: Renal Caps PO SCH (09:28)
[2017-05-03] MEDS: BABY ASPIRIN PO SCH (09:28)
--- NOTE | 2017-05-03 10:41 | Progress Note ---
Assessment and Plan - Patient Problems (1) ESRD (end stage renal disease) on dialysis Current Visit: Yes Status: Acute Plan to address problem: Hemodialysis today for UF and clearance Fluid restriction of 1 liter per day Renally dose medications Renal diet Obtain daily weights Assess dialysis needs daily (2) CHF (congestive heart failure) Current Visit: Yes Status: Acute Qualifiers: Congestive heart failure type: unspecified congestive heart failure type Congestive heart failure chronicity: acute on chronic Qualified Code(s): I50.9 - Heart failure, unspecified Plan to address problem: Undergoing left heart cath today per Cardiology Fluid restriction of 1 liter per day Hemodialysis today (3) HTN (hypertension) Current Visit: Yes Status: Acute Plan to address problem: Continue on anti-hypertensive agents (4) Pleural effusion due to CHF (congestive heart failure) Current Visit: No Status: Acute Plan to address problem: May need Thoracentesis (5) Diabetes Current Visit: Yes Status: Acute Plan to address problem: On Insulin as per Primary team (6) Anemia in ESRD (end-stage renal disease) Current Visit: Yes Status: Acute Plan to address problem: On Epogen 10,000 units with HD Subjective Date of service: 05/03/17 Principal diagnosis: Shortness of breath, ESRD Interval history: Patient off floor undergoing cardiac cath. Objective - Vital Signs Vital signs: Vital Signs - 12hr 05/03/17 05/03/17 05/03/17 00:55 05:42 07:53 Temperature 98.5 F 98.6 F Pulse Rate 72 77 Respiratory 18 18 Rate Blood Pressure 136/42 177/61 O2 Sat by Pulse 98 98 100 Oximetry - Lab 05/03/17 06:39 05/03/17 06:39 Most recent lab results Calcium 8.5 mg/dL (8.4-10.2) 05/03/17 06:39
[2017-05-03 11:13] LABS: ISTAT Base Excess TNR; ISTAT HCO3 TNR; ISTAT PCO2 TNR (35-45); ISTAT PH TNR (7.35-7.45); ISTAT PO2 TNR (80-105)
[2017-05-03 11:14] LABS: ISTAT DEVICE TNR; ISTAT SITE TNR; ISTAT SO2 TNR; ISTAT TCO2 TNR
--- NOTE | 2017-05-03 11:32 | Progress Note ---
Assessment and Plan - Patient Problems (1) CHF (congestive heart failure) Current Visit: Yes Status: Acute Qualifiers: Congestive heart failure type: unspecified congestive heart failure type Congestive heart failure chronicity: acute on chronic Qualified Code(s): I50.9 - Heart failure, unspecified Plan to address problem: We'll continue conservative cardiac management with medical therapy. Fluid overload is being successfully managed by aggressive dialysis. Subjective Date of service: 05/03/17 Principal diagnosis: Shortness of breath, ESRD Interval history: Patient is comfortable, sitting up in chair in her room, talking on the telephone. There is no chest pain, no further shortness of breath, no cardiac complaints. He presented with fluid overload and congestive heart failure, I am not certain if there were any missed dialysis sessions, as the patient does not communicate well due to language barrier. A previous attempt at cardiac catheterization was aborted due to paucity of peripheral arterial entry points for retrograde heart catheterization. Objective Vital Signs Temp Pulse Resp BP Pulse Ox 05/03/17 07:53 100 05/03/17 05:42 98.6 F 77 18 177/61 98 05/03/17 00:55 98.5 F 72 18 136/42 98 05/02/17 22:00 84 99 05/02/17 21:10 99.4 F 81 22 149/53 99 05/02/17 17:43 100 05/02/17 17:04 83 182/69 100 05/02/17 16:24 77 142/72 05/02/17 14:15 98.1 F 77 18 142/72 05/02/17 14:00 76 114/61 05/02/17 13:45 76 128/67 05/02/17 13:30 75 123/64 05/02/17 13:15 75 140/66 05/02/17 13:00 76 133/65 05/02/17 12:45 79 118/64 05/02/17 12:30 78 140/72 05/02/17 12:15 77 144/75 05/02/17 12:00 78 116/57 05/02/17 11:45 76 133/62 05/02/17 11:30 79 152/75 - Physical Examination General: Appears Well, No Apparent Distress HEENT: Positive: PERRL Neck: Positive: neck supple Cardiac: Positive: Reg Rate and Rhythm Lungs: Positive: Decreased Breath Sounds Neuro: Positive: Grossly Intact Abdomen: Positive: Soft Skin: Positive: Clear Extremities: Absent: edema - Labs and Meds Coagulation 05/02/17 Range/Units 15:02 PT 14.7 (12.2-14.9) Sec. INR 1.09 (0.87-1.13) CBC 05/03/17 Range/Units 06:39 WBC 7.4 (4.5-11.0) K/mm3 RBC 2.93 L (3.65-5.03) M/mm3 Hgb 8.4 L (10.1-14.3) gm/dl Hct 25.9 L (30.3-42.9) % Plt Count 212 (140-440) K/mm3 Lymph # 1.6 (1.2-5.4) K/mm3 M[place] # 0.6 (0.0-0.8) K/mm3 Eos # 0.3 (0.0-0.4) K/mm3 Baso # 0.1 (0.0-0.1) K/mm3 Comprehensive Metabolic Panel 05/03/17 Range/Units 06:39 Sodium 140 (137-145) mmol/L Potassium 3.5 L (3.6-5.0) mmol/L Chloride 100.4 (98-107) mmol/L Carbon Dioxide 30 (22-30) mmol/L BUN 11 (7-17) mg/dL Creatinine 2.7 H (0.7-1.2) mg/dL Glucose 186 H (65-100) mg/dL Calcium 8.5 (8.4-10.2) mg/dL
[2017-05-03] MEDS: HEPARIN IV PRN (12:05)
[2017-05-03] MEDS: PROVENTIL IH PRN (12:05)
[2017-05-03] MEDS ORDERED: NACL 0.9 (PRIMING MACHINE ONLY DIALYSIS) MC ONE (13:38)
--- NOTE | 2017-05-03 13:41 | Progress Note ---
Assessment and Plan Bilateral pleural effusion Acute on chronic combined systolic and diastolic heart failure (Ejection fraction 40-45%) Recurrent hospitalizations with CHF exacerbation End Stage renal disease on hemodialysis per schedule Hypertension; moderate control Dyslipidemia Type 2 diabetes mellitus Obesity (BMI 37.5) - awaiting tentative thoracentesis (will re-image) - continue DMOD's for CHF per cardiology recs - tentative heart cath - continue HD/UF per nephrology prescription - continue anti-HTNsives foir target BP </= 120/70 - continue accucheacks and SSI - weight loss counselled ...improving ...re-evaluate in am & prn Subjective Date of service: 05/03/17 Principal diagnosis: Shortness of breath, ESRD Interval history: Patient is seen today for: Acute Hypoxemic Resp Failure; Pleural Effusions; CHF exacerbation Seen and examined at bedside; 24hour events reviewed; nursing and respiratory care staff consulted; no adverse overnight events reported to me; resting in bed ; on supplemental oxygen; feels better overall; no chest pains or palpitations Objective Vital Signs - 12hr 05/03/17 05/03/17 05/03/17 05:42 07:53 10:00 Temperature 98.6 F 98.0 F Pulse Rate 77 81 Respiratory 18 16 Rate Blood Pressure 177/61 184/59 O2 Sat by Pulse 98 100 Oximetry 05/03/17 05/03/17 05/03/17 10:15 10:30 10:45 Temperature Pulse Rate 82 82 77 Respiratory Rate Blood Pressure 183/80 183/80 154/77 O2 Sat by Pulse Oximetry 05/03/17 05/03/17 05/03/17 11:00 11:15 11:30 Temperature Pulse Rate 70 80 82 Respiratory Rate Blood Pressure 146/66 123/60 118/59 O2 Sat by Pulse Oximetry 05/03/17 05/03/17 05/03/17 11:45 12:00 12:15 Temperature Pulse Rate 92 H 81 81 Respiratory Rate Blood Pressure 114/50 100/49 123/56 O2 Sat by Pulse Oximetry 05/03/17 05/03/17 05/03/17 12:30 12:45 13:00 Temperature Pulse Rate 80 82 85 Respiratory Rate Blood Pressure 116/58 134/71 162/80 O2 Sat by Pulse Oximetry 05/03/17 13:15 Temperature Pulse Rate 84 Respiratory Rate Blood Pressure 141/75 O2 Sat by Pulse Oximetry Constitutional: no acute distress, alert Eyes: non-icteric ENT: oropharynx moist Neck: supple, no lymphadenopathy, no JVD, other (no thyromegaly) Effort: mildly labored Ascultation: Bilateral: diminished breath sounds, rhonchi Percussion: Bilateral: not dull Cardiovascular: regular rate and rhythm, murmur noted, other (No rubs) Gastrointestinal: normoactive bowel sounds, soft, non-tender, non-distended, other (No palpable HSM) Integumentary: normal Extremities: no cyanosis, pulses normal, no ischemia or petechiae, edema Neurologic: normal mental status, non-focal exam, pupils equal and round, CN II- XII normal Psychiatric: mood appropriate, affect normal CBC and BMP: 05/04/17 05:44 05/06/17 06:13 ABG, PT/INR, D-dimer: ABG POC ABG pH 7.438 (7.35-7.45) 05/02/17 18:15 POC ABG pCO2 47.1 (35-45) H 05/02/17 18:15 POC ABG pO2 86 (80-105) 05/02/17 18:15 POC ABG HCO3 31.8 05/02/17 18:15 POC ABG Total CO2 33 05/02/17 18:15 POC ABG O2 Sat 97 05/02/17 18:15 PT/INR, D-dimer PT 14.7 Sec. (12.2-14.9) 05/02/17 15:02 INR 1.09 (0.87-1.13) 05/02/17 15:02 D-Dimer 1589.45 ng/mlDDU (0-234) H 04/30/17 07:45 Abnormal lab findings: Abnormal Labs 04/30/17 04/30/17 04/30/17 06:33 06:33 07:45 RBC 3.14 L Hgb 9.1 L Hct 28.3 L RDW 15.3 H [place] % (Auto) Seg Neutrophils % 71.0 H D-Dimer 1589.45 H POC ABG pCO2 Potassium BUN 37 H Creatinine 4.0 H Glucose 117 H POC Glucose Calcium Troponin T 0.194 H* Triglycerides 170 H HDL Cholesterol 71 H 04/30/17 04/30/17 04/30/17 09:24 11:49 17:12 RBC Hgb Hct RDW [place] % (Auto) Seg Neutrophils % D-Dimer POC ABG pCO2 Potassium BUN Creatinine Glucose POC Glucose 209 H Calcium Troponin T 0.188 H* 0.179 H* Triglycerides HDL Cholesterol 04/30/17 05/01/17 05/01/17 23:02 08:10 11:45 RBC Hgb Hct RDW [place] % (Auto) Seg Neutrophils % D-Dimer POC ABG pCO2 Potassium BUN Creatinine Glucose POC Glucose 216 H 154 H 247 H Calcium Troponin T Triglycerides HDL Cholesterol 05/01/17 05/01/17 05/01/17 17:49 18:21 21:53 RBC Hgb Hct RDW [place] % (Auto) Seg Neutrophils % D-Dimer POC ABG pCO2 Potassium BUN Creatinine 2.3 H Glucose 191 H POC Glucose 172 H 235 H Calcium 8.1 L Troponin T Triglycerides HDL Cholesterol 05/02/17 05/02/17 05/02/17 04:00 04:00 08:36 RBC 3.09 L Hgb 9.1 L Hct 27.7 L RDW [place] % (Auto) Seg Neutrophils % 72.6 H D-Dimer POC ABG pCO2 Potassium BUN 20 H Creatinine 3.3 H Glucose 194 H POC Glucose 209 H Calcium Troponin T Triglycerides HDL Cholesterol 05/02/17 05/02/17 05/02/17 17:09 18:15 22:00 RBC Hgb Hct RDW [place] % (Auto) Seg Neutrophils % D-Dimer POC ABG pCO2 47.1 H Potassium BUN Creatinine Glucose POC Glucose 255 H 189 H Calcium Troponin T Triglycerides HDL Cholesterol 05/03/17 05/03/17 05/03/17 06:39 06:39 08:02 RBC 2.93 L Hgb 8.4 L Hct 25.9 L RDW 15.3 H [place] % (Auto) 7.5 H Seg Neutrophils % D-Dimer POC ABG pCO2 Potassium 3.5 L BUN Creatinine 2.7 H Glucose 186 H POC Glucose 152 H Calcium Troponin T Triglycerides HDL Cholesterol Chest x-ray: image reviewed Allied health notes reviewed: nursing
[2017-05-03] MEDS: APRESOLINE PO SCH ×2 (16:52→16:55)
[2017-05-03] MEDS: LOPRESSOR PO SCH (16:53)
[2017-05-03] MEDS: TRENTAL PO SCH (16:54)
[2017-05-03] MEDS: BUMEX PO SCH (16:55)
--- NOTE | 2017-05-03 18:55 | Progress Note ---
Assessment and Plan Assessment and plan: --Bilateral pleural effusion; chest ultrasound revealed right effusion [id number] Left pleural effusion 711 CC, Ultrasound-guided thoracentesis if patient and family agree, pulmonary following --Acute on chronic combined systolic and diastolic heart failure Ejection fraction 40-45%, continue current anti-failure medications, cardiology following --Recurrent hospitalizations with CHF exacerbation, optimize medications, possible heart cath tomorrow per cardiology --End Stage renal disease on hemodialysis per schedule, Nephrology following --Hypertension; moderate control, continue current antihypertensives and when necessary medications --Dyslipidemia; stable on lipid-lowering agents, low-cholesterol diet --Type 2 diabetes mellitus; Accu-Chek sliding scale coverage and ADA diet and glipizide --DVT prophylaxis; renal dose of heparin --Obesity; BMI 37.5, counseling done advised dietary modification exercise as tolerated and weight reduction when medically stable DC planning. Case management when medically stable Consults and recommendations noted and appreciated Follow left heart cath tomorrow, possible discharge in 1-2 days if stable History Interval history: Patient was scheduled for left heart Which patient and family refused Patient is receiving hemodialysis Pulmonary recommended thoracentesis however the son wanted to talk to the ordnance equipment worker Before making the decision, nurse contacting ordnance equipment worker Vital signs reviewed, Hospitalist Physical - Constitutional Vitals: Temp Pulse Resp BP Pulse Ox 97.8 F 81 20 156/63 100 05/03/17 14:00 05/03/17 16:55 05/03/17 14:00 05/03/17 16:55 05/03/17 07:53 General appearance: Present: no acute distress, well-nourished, obese - EENT Eyes: Present: PERRL, EOM intact - Neck Neck: Present: supple, normal ROM - Respiratory Respiratory effort: normal Respiratory: bilateral: diminished, rhonchi, negative: rales, wheezing - Cardiovascular Rhythm: regular Heart Sounds: Present: S1 & S2 - Extremities Extremities: no ischemia, No edema Peripheral Pulses: within normal limits - Abdominal General gastrointestinal: soft, non-tender, non-distended, normal bowel sounds - Integumentary Integumentary: Present: clear, warm - Psychiatric Psychiatric: appropriate mood/affect, cooperative - Neurologic Neurologic: CNII-XII intact, moves all extremities Results - Labs CBC & Chem 7: 05/03/17 06:39 05/03/17 06:39 Labs: Laboratory Last Values WBC 7.4 K/mm3 (4.5-11.0) 05/03/17 06:39 RBC 2.93 M/mm3 (3.65-5.03) L 05/03/17 06:39 Hgb 8.4 gm/dl (10.1-14.3) L 05/03/17 06:39 Hct 25.9 % (30.3-42.9) L 05/03/17 06:39 MCV 89 fl (79-97) 05/03/17 06:39 MCH 29 pg (28-32) 05/03/17 06:39 MCHC 33 % (30-34) 05/03/17 06:39 RDW 15.3 % (13.2-15.2) H 05/03/17 06:39 Plt Count 212 K/mm3 (140-440) 05/03/17 06:39 Lymph % (Auto) 22.1 % (13.4-35.0) 05/03/17 06:39 [place] % (Auto) 7.5 % (0.0-7.3) H 05/03/17 06:39 Eos % (Auto) 4.1 % (0.0-4.3) 05/03/17 06:39 Baso % (Auto) 1.1 % (0.0-1.8) 05/03/17 06:39 Lymph # 1.6 K/mm3 (1.2-5.4) 05/03/17 06:39 [place] # 0.6 K/mm3 (0.0-0.8) 05/03/17 06:39 Eos # 0.3 K/mm3 (0.0-0.4) 05/03/17 06:39 Baso # 0.1 K/mm3 (0.0-0.1) 05/03/17 06:39 Seg Neutrophils % 65.2 % (40.0-70.0) 05/03/17 06:39 Seg Neutrophils # 4.8 K/mm3 (1.8-7.7) 05/03/17 06:39 PT 14.7 Sec. (12.2-14.9) 05/02/17 15:02 INR 1.09 (0.87-1.13) 05/02/17 15:02 APTT 29.9 Sec. (24.2-36.6) 04/30/17 07:45 D-Dimer 1589.45 ng/mlDDU (0-234) H 04/30/17 07:45 POC ABG pH 7.438 (7.35-7.45) 05/02/17 18:15 POC ABG pCO2 47.1 (35-45) H 05/02/17 18:15 POC ABG pO2 86 (80-105) 05/02/17 18:15 POC ABG HCO3 31.8 05/02/17 18:15 POC ABG Total CO2 33 05/02/17 18:15 POC ABG O2 Sat 97 05/02/17 18:15 POC ABG Base Excess 8 05/02/17 18:15 FiO2 2 % 05/02/17 18:15 Sodium 140 mmol/L (137-145) 05/03/17 06:39 Potassium 3.5 mmol/L (3.6-5.0) L 05/03/17 06:39 Chloride 100.4 mmol/L (98-107) 05/03/17 06:39 Carbon Dioxide 30 mmol/L (22-30) 05/03/17 06:39 Anion Gap 13 mmol/L 05/03/17 06:39 BUN 11 mg/dL (7-17) 05/03/17 06:39 Creatinine 2.7 mg/dL (0.7-1.2) H 05/03/17 06:39 Estimated GFR 18 ml/min 05/03/17 06:39 BUN/Creatinine Ratio 4 % 05/03/17 06:39 Glucose 186 mg/dL (65-100) H 05/03/17 06:39 POC Glucose 197 (70-105) H 05/03/17 16:28 Calcium 8.5 mg/dL (8.4-10.2) 05/03/17 06:39 Troponin T 0.179 ng/mL (0.00-0.029) H* 04/30/17 11:49 Triglycerides 170 mg/dL (2-149) H 04/30/17 06:33 Cholesterol 165 mg/dL (50-199) 04/30/17 06:33 LDL Cholesterol Direct 60 mg/dL (50-130) 04/30/17 06:33 HDL Cholesterol 71 mg/dL (40-59) H 04/30/17 06:33 Cholesterol/HDL Ratio 2.32 % 04/30/17 06:33
[2017-05-04] MEDS: NOVOLOG SUB-Q SCH ×5 (00:14→23:43)
[2017-05-04] MEDS: SODIUM BICARBONATE PO SCH ×4 (00:15→23:42)
[2017-05-04] MEDS: TRENTAL PO SCH ×3 (00:16→23:42)
[2017-05-04] MEDS: LOPRESSOR PO SCH ×3 (00:16→23:43)
[2017-05-04] MEDS: PRAVACHOL PO SCH ×2 (00:16→23:43)
[2017-05-04] MEDS: APRESOLINE PO SCH ×4 (00:16→23:43)
[2017-05-04] MEDS: BUMEX PO SCH ×3 (00:20→18:44)
[2017-05-04] MEDS: PEPCID PO SCH ×2 (05:58→10:00)
[2017-05-04 06:17] LABS: Eosinophils % (Auto) 3.8 % (0.0-4.3); Hematocrit 29.1 % (30.3-42.9); Hemoglobin 9.4 gm/dl (10.1-14.3); Mean Corpuscular HGB Conc 32 % (30-34); Mean Corpuscular Hemoglobin 29 pg (28-32); Mean Corpuscular Volume 89 fl (79-97); Platelet Count 225 K/mm3 (140-440); Red Blood Count 3.26 M/mm3 (3.65-5.03); Red Cell Distribution Width 15.5 % (13.2-15.2); White Blood Count 9.2 K/mm3 (4.5-11.0)
[2017-05-04 06:30] LABS: Albumin 3.2 g/dL (3.9-5); Bilirubin,Total 0.3 mg/dL (0.1-1.2); Calcium 8.6 mg/dL (8.4-10.2); Potassium 3.8 mmol/L (3.6-5.0); Total Protein 6.4 g/dL (6.3-8.2)
--- NOTE | 2017-05-04 09:34 | Progress Note ---
Assessment and Plan Acute on chronic combined heart failure Bilateral Pleural effusion Cardiomyopathy, LVEF 40-45% Attempt at cath in the past aborted due to inability to gain arterial access. Vascular US on the LE done 03/2017 showed normal arterial flow in the LE with no focal stenosis ESRD on HD Chronic anemia Diabetes Recommendations: Dialysis for fluid management. Conservative cardiac management. Subjective Date of service: 05/04/17 Principal diagnosis: Shortness of breath, ESRD Interval history: Patient denies chest pain. No distress noted. Objective Vital Signs Temp Pulse Resp BP Pulse Ox 05/04/17 04:43 97.8 F 80 18 118/94 98 05/04/17 00:02 98.2 F 80 18 133/59 96 05/03/17 22:00 80 99 05/03/17 19:57 98.3 F 80 18 134/43 99 05/03/17 16:55 81 156/63 05/03/17 16:53 81 156/63 05/03/17 16:52 81 156/63 05/03/17 14:00 97.8 F 79 20 116/58 05/03/17 13:45 85 98/48 05/03/17 13:30 87 132/68 05/03/17 13:15 84 141/75 05/03/17 13:00 85 162/80 05/03/17 12:45 82 134/71 05/03/17 12:30 80 116/58 05/03/17 12:15 81 123/56 05/03/17 12:00 81 100/49 05/03/17 11:45 92 H 114/50 05/03/17 11:30 82 118/59 05/03/17 11:15 80 123/60 05/03/17 11:00 70 146/66 05/03/17 10:45 77 154/77 05/03/17 10:30 82 183/80 05/03/17 10:15 82 183/80 05/03/17 10:00 98.0 F 81 20 184/59 - Physical Examination General: No Apparent Distress HEENT: Positive: PERRL Cardiac: Positive: Reg Rate and Rhythm Lungs: Positive: Decreased Breath Sounds Neuro: Positive: Grossly Intact - Labs and Meds Cardiac Enzymes 05/04/17 Range/Units 05:44 AST 17 (5-40) units/L CBC 05/04/17 Range/Units 05:44 WBC 9.2 (4.5-11.0) K/mm3 RBC 3.26 L (3.65-5.03) M/mm3 Hgb 9.4 L (10.1-14.3) gm/dl Hct 29.1 L (30.3-42.9) % Plt Count 225 (140-440) K/mm3 Lymph # 1.7 (1.2-5.4) K/mm3 [place] # 0.6 (0.0-0.8) K/mm3 Eos # 0.4 (0.0-0.4) K/mm3 Baso # 0.1 (0.0-0.1) K/mm3 Comprehensive Metabolic Panel 05/04/17 Range/Units 05:44 Sodium 139 (137-145) mmol/L Potassium 3.8 (3.6-5.0) mmol/L Chloride 100.0 (98-107) mmol/L Carbon Dioxide 28 (22-30) mmol/L BUN 11 (7-17) mg/dL Creatinine 2.9 H (0.7-1.2) mg/dL Glucose 160 H (65-100) mg/dL Calcium 8.6 (8.4-10.2) mg/dL AST 17 (5-40) units/L ALT 11 (7-56) units/L Alkaline Phosphatase 134 H (35-129) units/L Total Protein 6.4 (6.3-8.2) g/dL Albumin 3.2 L (3.9-5) g/dL
[2017-05-04] MEDS: Renal Caps PO SCH (10:00)
[2017-05-04] MEDS: BABY ASPIRIN PO SCH (10:00)
--- NOTE | 2017-05-04 11:09 | Progress Note ---
Assessment and Plan - Patient Problems (1) ESRD (end stage renal disease) on dialysis Current Visit: Yes Status: Acute Plan to address problem: Received hemodialysis yesterday for UF and clearance Hemodialysis tomorrow for UF and clearance Fluid restriction of 1 liter per day Renally dose medications Renal diet Obtain daily weights Assess dialysis needs daily (2) CHF (congestive heart failure) Current Visit: Yes Status: Acute Qualifiers: Congestive heart failure type: unspecified congestive heart failure type Congestive heart failure chronicity: acute on chronic Qualified Code(s): I50.9 - Heart failure, unspecified Plan to address problem: Conservative cardiac management per Cardiology Fluid restriction of 1 liter per day On Bumex 1 mg po BID (3) HTN (hypertension) Current Visit: Yes Status: Acute Plan to address problem: Continue on anti-hypertensive agents (4) Pleural effusion due to CHF (congestive heart failure) Current Visit: No Status: Acute Plan to address problem: May need Thoracentesis (5) Diabetes Current Visit: Yes Status: Acute Plan to address problem: On Insulin as per Primary team (6) Anemia in ESRD (end-stage renal disease) Current Visit: Yes Status: Acute Plan to address problem: On Epogen 10,000 units with HD Subjective Date of service: 05/04/17 Principal diagnosis: Shortness of breath, ESRD Interval history: Patient seen sitting up in chair. Son at bedside who states patient is hungry. Objective - Vital Signs Vital signs: Vital Signs - 12hr 05/04/17 05/04/17 05/04/17 00:02 04:43 08:04 Temperature 98.2 F 97.8 F Pulse Rate 80 80 Respiratory 18 18 Rate Blood Pressure 133/59 118/94 155/69 O2 Sat by Pulse 96 98 Oximetry - General Appearance General appearance: well-developed, appears stated age EENT: ATNC, PERRL, hearing intact, vision intact Neck: no JVD Respiratory: Present: Decreased Breath Sounds Cardiology: regular, S1S2 Gastrointestinal: normoactive bowel sounds Integumentary: warm and dry Neurologic: alert and oriented x3 Musculoskeletal: other (edema improved) Psychiatric: mood/affect appropriate - Lab 05/04/17 05:44 05/04/17 05:44 Most recent lab results Calcium 8.6 mg/dL (8.4-10.2) 05/04/17 05:44
--- NOTE | 2017-05-04 18:19 | Progress Note ---
Assessment and Plan 61 YO Female with HTN, CHF, DM, ESRD on HD(T,Thur,Sa), HLD presents to ED for evaluation. Pt unable to provide history. Pt history given by son who is at the bedside during exam and interview. As per son, patient has complained of shortness of breath for the past day with worsening symptoms since 0300hrs today. Symptoms awoke patient from sleep. Son acknowledges Orthopnea/PND as well as leg swelling. Pt son states that patient took hydralazine without improvement in symptoms. No reports of fever, chills, CP, Palpitations, NVD, productive cough, BRBPR, Seizures, Trauma, recent ill contacts. Pt is noncompliant with renal and cardiac diet but compliant with medications. Patient was seen and evaluated in ED and found to be in respiratory distress. Nephrology consulted in ED. --Bilateral pleural effusion; chest ultrasound revealed right effusion 647CC Left pleural effusion 711 CC, Ultrasound-guided thoracentesis if patient and family agree. IR for ultrasound guided thoracentesis, but family are equivocal about thoracentesis. Will get CXR to re-evaluate effusions. --Acute on chronic combined systolic and diastolic heart failure Ejection fraction 40-45%, continue current anti-failure medications, cardiology following --Recurrent hospitalizations with CHF exacerbation, optimize medications, possible heart cath tomorrow per cardiology --End Stage renal disease on hemodialysis per schedule, Nephrology following --Hypertension; moderate control, continue current antihypertensives and when necessary medications --Dyslipidemia; stable on lipid-lowering agents, low-cholesterol diet --Type 2 diabetes mellitus; Accu-Chek sliding scale coverage and ADA diet and glipizide --DVT prophylaxis; renal dose of heparin --Obesity; BMI 37.5, counseling done advised dietary modification exercise as tolerated and weight reduction when medically stable Subjective Date of service: 05/04/17 Principal diagnosis: Shortness of breath, ESRD Interval history: Seen and examined. Vitals, labs, medications, chart and imaging reviewed. Apparently family has refused left heart catheterization She denies any chest pain, no shortness of breath, no fevers or chills. Was dialyzed daily for 4 days with symptom relief. Objective - Exam Narrative Exam: General appearance: well-developed, well-nourished, obese EENT: ATNC, PERRL, mucous membranes moist Neck: Present: neck supple Respiratory: BL Crackles right chest wall permacath Heart: regular, S1S2 Gastrointestinal: Present: normoactive bowel sounds, obese. Absent: tenderness , distended Integumentary: no rash, warm and dry Neurologic: no focal deficit, no asterixis, alert and oriented x3 Musculoskeletal: Present: other (1+ pitting edema in BLE) Psychiatric: mood/affect appropriate, cooperative Vital Signs - 12hr 05/04/17 05/04/17 05/04/17 08:04 10:00 12:22 Pulse Rate 82 83 Blood Pressure 155/69 187/76 O2 Sat by Pulse 100 100 Oximetry 05/04/17 13:43 Pulse Rate 82 Blood Pressure 187/76 O2 Sat by Pulse Oximetry Constitutional: no acute distress, alert Eyes: non-icteric Ascultation: Bilateral: diminished breath sounds Cardiovascular: regular rate and rhythm Gastrointestinal: normoactive bowel sounds, soft, non-tender Integumentary: normal Extremities: no cyanosis, edema Neurologic: normal mental status, non-focal exam, pupils equal and round, CN II- XII normal Psychiatric: mood appropriate CBC and BMP: 05/04/17 05:44 05/04/17 05:44 ABG, PT/INR, D-dimer: ABG POC ABG pH 7.438 (7.35-7.45) 05/02/17 18:15 POC ABG pCO2 47.1 (35-45) H 05/02/17 18:15 POC ABG pO2 86 (80-105) 05/02/17 18:15 POC ABG HCO3 31.8 05/02/17 18:15 POC ABG Total CO2 33 05/02/17 18:15 POC ABG O2 Sat 97 05/02/17 18:15 PT/INR, D-dimer PT 14.7 Sec. (12.2-14.9) 05/02/17 15:02 INR 1.09 (0.87-1.13) 05/02/17 15:02 D-Dimer 1589.45 ng/mlDDU (0-234) H 04/30/17 07:45 Abnormal lab findings: Abnormal Labs 04/30/17 04/30/17 04/30/17 06:33 06:33 07:45 RBC 3.14 L Hgb 9.1 L Hct 28.3 L RDW 15.3 H [place] % (Auto) Seg Neutrophils % 71.0 H D-Dimer 1589.45 H POC ABG pCO2 Potassium BUN 37 H Creatinine 4.0 H Glucose 117 H POC Glucose Calcium Alkaline Phosphatase Troponin T 0.194 H* Albumin Triglycerides 170 H HDL Cholesterol 71 H 04/30/17 04/30/17 04/30/17 09:24 11:49 17:12 RBC Hgb Hct RDW [place] % (Auto) Seg Neutrophils % D-Dimer POC ABG pCO2 Potassium BUN Creatinine Glucose POC Glucose 209 H Calcium Alkaline Phosphatase Troponin T 0.188 H* 0.179 H* Albumin Triglycerides HDL Cholesterol 04/30/17 05/01/17 05/01/17 23:02 08:10 11:45 RBC Hgb Hct RDW [place] % (Auto) Seg Neutrophils % D-Dimer POC ABG pCO2 Potassium BUN Creatinine Glucose POC Glucose 216 H 154 H 247 H Calcium Alkaline Phosphatase Troponin T Albumin Triglycerides HDL Cholesterol 05/01/17 05/01/17 05/01/17 17:49 18:21 21:53 RBC Hgb Hct RDW [place] % (Auto) Seg Neutrophils % D-Dimer POC ABG pCO2 Potassium BUN Creatinine 2.3 H Glucose 191 H POC Glucose 172 H 235 H Calcium 8.1 L Alkaline Phosphatase Troponin T Albumin Triglycerides HDL Cholesterol 05/02/17 05/02/17 05/02/17 04:00 04:00 08:36 RBC 3.09 L Hgb 9.1 L Hct 27.7 L RDW [place] % (Auto) Seg Neutrophils % 72.6 H D-Dimer POC ABG pCO2 Potassium BUN 20 H Creatinine 3.3 H Glucose 194 H POC Glucose 209 H Calcium Alkaline Phosphatase Troponin T Albumin Triglycerides HDL Cholesterol 05/02/17 05/02/17 05/02/17 17:09 18:15 22:00 RBC Hgb Hct RDW [place] % (Auto) Seg Neutrophils % D-Dimer POC ABG pCO2 47.1 H Potassium BUN Creatinine Glucose POC Glucose 255 H 189 H Calcium Alkaline Phosphatase Troponin T Albumin Triglycerides HDL Cholesterol 05/03/17 05/03/17 05/03/17 06:39 06:39 08:02 RBC 2.93 L Hgb 8.4 L Hct 25.9 L RDW 15.3 H [place] % (Auto) 7.5 H Seg Neutrophils % D-Dimer POC ABG pCO2 Potassium 3.5 L BUN Creatinine 2.7 H Glucose 186 H POC Glucose 152 H Calcium Alkaline Phosphatase Troponin T Albumin Triglycerides HDL Cholesterol 05/03/17 05/03/17 05/04/17 16:28 21:26 05:44 RBC Hgb Hct RDW [place] % (Auto) Seg Neutrophils % D-Dimer POC ABG pCO2 Potassium BUN Creatinine 2.9 H Glucose 160 H POC Glucose 197 H 266 H Calcium Alkaline Phosphatase 134 H Troponin T Albumin 3.2 L Triglycerides HDL Cholesterol 05/04/17 05/04/17 05/04/17 05:44 08:07 12:27 RBC 3.26 L Hgb 9.4 L Hct 29.1 L RDW 15.5 H [place] % (Auto) Seg Neutrophils % D-Dimer POC ABG pCO2 Potassium BUN Creatinine Glucose POC Glucose 171 H 179 H Calcium Alkaline Phosphatase Troponin T Albumin Triglycerides HDL Cholesterol
--- NOTE | 2017-05-04 18:59 | Progress Note ---
Assessment and Plan Assessment and plan: --Bilateral pleural effusion; chest ultrasound revealed right effusion 647CC Left pleural effusion 711 CC, Ultrasound-guided thoracentesis if patient and family agree, follow pulmonary recommendations --Acute on chronic combined systolic and diastolic heart failure Ejection fraction 40-45%, continue current anti-failure medications, cardiology following --Recurrent hospitalizations with CHF exacerbation, optimize medications, Cardiology attempted heart cath, in the past, aborted due to inability to gain arterial access, medical management --End Stage renal disease on hemodialysis per schedule, Nephrology following --Hypertension; moderate control, continue current antihypertensives and when necessary medications --Dyslipidemia; stable on lipid-lowering agents, low-cholesterol diet --Type 2 diabetes mellitus; Accu-Chek sliding scale coverage and ADA diet and glipizide --DVT prophylaxis; renal dose of heparin --Obesity; BMI 37.5, counseling done advised dietary modification exercise as tolerated and weight reduction when medically stable DC planning. Case management when medically stable Consults and recommendations noted and appreciated Plan of care discussed with the patient and her son at the bedside Answered all their questions History Interval history: Patient seen and examined medical records reviewed Son is at the bedside No new complaints, vital signs reviewed Hospitalist Physical - Constitutional Vitals: Temp Pulse Resp BP Pulse Ox 97.8 F 89 18 164/65 96 05/04/17 04:43 05/04/17 17:18 05/04/17 04:43 05/04/17 17:18 05/04/17 17:18 General appearance: Present: no acute distress, well-nourished, obese - EENT Eyes: Present: PERRL, EOM intact - Neck Neck: Present: supple, normal ROM - Respiratory Respiratory effort: normal Respiratory: bilateral: diminished, rhonchi, negative: wheezing - Cardiovascular Rhythm: regular Heart Sounds: Present: S1 & S2 - Extremities Extremities: no ischemia, No edema - Abdominal General gastrointestinal: soft, non-tender, non-distended, normal bowel sounds - Integumentary Integumentary: Present: clear, warm - Psychiatric Psychiatric: appropriate mood/affect, cooperative - Neurologic Neurologic: CNII-XII intact, moves all extremities Results - Labs CBC & Chem 7: 05/04/17 05:44 05/04/17 05:44 Labs: Laboratory Last Values WBC 9.2 K/mm3 (4.5-11.0) 05/04/17 05:44 RBC 3.26 M/mm3 (3.65-5.03) L 05/04/17 05:44 Hgb 9.4 gm/dl (10.1-14.3) L 05/04/17 05:44 Hct 29.1 % (30.3-42.9) L 05/04/17 05:44 MCV 89 fl (79-97) 05/04/17 05:44 MCH 29 pg (28-32) 05/04/17 05:44 MCHC 32 % (30-34) 05/04/17 05:44 RDW 15.5 % (13.2-15.2) H 05/04/17 05:44 Plt Count 225 K/mm3 (140-440) 05/04/17 05:44 Lymph % (Auto) 18.6 % (13.4-35.0) 05/04/17 05:44 [place] % (Auto) 7.0 % (0.0-7.3) 05/04/17 05:44 Eos % (Auto) 3.8 % (0.0-4.3) 05/04/17 05:44 Baso % (Auto) 1.0 % (0.0-1.8) 05/04/17 05:44 Lymph # 1.7 K/mm3 (1.2-5.4) 05/04/17 05:44 [place] # 0.6 K/mm3 (0.0-0.8) 05/04/17 05:44 Eos # 0.4 K/mm3 (0.0-0.4) 05/04/17 05:44 Baso # 0.1 K/mm3 (0.0-0.1) 05/04/17 05:44 Seg Neutrophils % 69.6 % (40.0-70.0) 05/04/17 05:44 Seg Neutrophils # 6.4 K/mm3 (1.8-7.7) 05/04/17 05:44 PT 14.7 Sec. (12.2-14.9) 05/02/17 15:02 INR 1.09 (0.87-1.13) 05/02/17 15:02 APTT 29.9 Sec. (24.2-36.6) 04/30/17 07:45 D-Dimer 1589.45 ng/mlDDU (0-234) H 04/30/17 07:45 POC ABG pH 7.438 (7.35-7.45) 05/02/17 18:15 POC ABG pCO2 47.1 (35-45) H 05/02/17 18:15 POC ABG pO2 86 (80-105) 05/02/17 18:15 POC ABG HCO3 31.8 05/02/17 18:15 POC ABG Total CO2 33 05/02/17 18:15 POC ABG O2 Sat 97 05/02/17 18:15 POC ABG Base Excess 8 05/02/17 18:15 FiO2 2 % 05/02/17 18:15 Sodium 139 mmol/L (137-145) 05/04/17 05:44 Potassium 3.8 mmol/L (3.6-5.0) 05/04/17 05:44 Chloride 100.0 mmol/L (98-107) 05/04/17 05:44 Carbon Dioxide 28 mmol/L (22-30) 05/04/17 05:44 Anion Gap 15 mmol/L 05/04/17 05:44 BUN 11 mg/dL (7-17) 05/04/17 05:44 Creatinine 2.9 mg/dL (0.7-1.2) H 05/04/17 05:44 Estimated GFR 16 ml/min 05/04/17 05:44 BUN/Creatinine Ratio 4 % 05/04/17 05:44 Glucose 160 mg/dL (65-100) H 05/04/17 05:44 POC Glucose 179 (70-105) H 05/04/17 12:27 Calcium 8.6 mg/dL (8.4-10.2) 05/04/17 05:44 Total Bilirubin 0.30 mg/dL (0.1-1.2) 05/04/17 05:44 AST 17 units/L (5-40) 05/04/17 05:44 ALT 11 units/L (7-56) 05/04/17 05:44 Alkaline Phosphatase 134 units/L (35-129) H 05/04/17 05:44 Troponin T 0.179 ng/mL (0.00-0.029) H* 04/30/17 11:49 Total Protein 6.4 g/dL (6.3-8.2) 05/04/17 05:44 Albumin 3.2 g/dL (3.9-5) L 05/04/17 05:44 Albumin/Globulin Ratio 1.0 % 05/04/17 05:44 Triglycerides 170 mg/dL (2-149) H 04/30/17 06:33 Cholesterol 165 mg/dL (50-199) 04/30/17 06:33 LDL Cholesterol Direct 60 mg/dL (50-130) 04/30/17 06:33 HDL Cholesterol 71 mg/dL (40-59) H 04/30/17 06:33 Cholesterol/HDL Ratio 2.32 % 04/30/17 06:33
--- NOTE | 2017-05-04 20:02 | XRay Report ---
FINAL REPORT PROCEDURE: AP and lateral chest x-ray TECHNIQUE: AP and lateral chest radiographs were obtained. CPT 32438 HISTORY: bilateral pleural effusion COMPARISON: Prior chest x-ray 04/14/2017 FINDINGS: Right jugular dual lumen catheter remains in place. The tip of the catheter projects in the junction of the SVC and right atrium. No evidence of pneumothorax. There is some patchy density seen in both lung bases. This is less dense than on the prior study. This may represent atelectasis or edema. I cannot exclude infiltrates. This is more prominent on the left based on the right. There is blunting of the left lateral costophrenic angle suggesting persistent small left effusion. No definite effusion on the right. Heart remains enlarged. No acute bony abnormalities are identified. IMPRESSION: Dual-lumen central venous line unchanged. No evidence of pneumothorax. Stable cardiomegaly. Increased density in the bases. I suspect there is some atelectasis in the right base. There is more prominent patchy density in the left base although improved compared to the prior study. This may represent atelectasis. Pneumonia needs clinical exclusion. Small left pleural effusion is suspected.
[2017-05-05 05:54] LABS: Albumin/Globulin Ratio 0.9 %; Bilirubin,Total 0.3 mg/dL (0.1-1.2); Calcium 8.7 mg/dL (8.4-10.2); Chloride 100.6 mmol/L (98-107); Total Protein 6.2 g/dL (6.3-8.2)
[2017-05-05] MEDS: BUMEX PO SCH ×2 (05:59→18:00)
[2017-05-05] MEDS: APRESOLINE PO SCH ×3 (05:59→22:23)
[2017-05-05 07:06] LABS: Potassium 4.5 mmol/L (3.6-5.0)
[2017-05-05] MEDS: NOVOLOG SUB-Q SCH ×4 (07:30→22:22)
[2017-05-05] MEDS: SODIUM BICARBONATE PO SCH ×3 (08:15→22:23)
--- NOTE | 2017-05-05 09:01 | Progress Note ---
Assessment and Plan Acute on chronic combined heart failure Bilateral Pleural effusion Cardiomyopathy, LVEF 40-45% Attempt at cath in the past aborted due to inability to gain arterial access. Vascular US on the LE done 03/2017 showed normal arterial flow in the LE with no focal stenosis ESRD on HD Chronic anemia Diabetes Recommendations: Dialysis for fluid management. Conservative cardiac management. Patient does not want a heart cath but she is willing to proceed with thoracentesis Subjective Date of service: 05/05/17 Principal diagnosis: Shortness of breath, ESRD Interval history: Patient denies chest pain or shortness of breath She really does not want a heart cath but she is willing to have a thoracentesis Objective Vital Signs Temp Pulse Resp BP BP Pulse Ox 05/05/17 08:46 98.7 F 79 20 118/50 95 05/05/17 04:59 97.5 F L 81 20 138/40 100 05/04/17 23:59 98.6 F 72 18 141/60 98 05/04/17 22:00 70 05/04/17 20:00 98.8 F 82 18 151/49 99 05/04/17 17:18 89 164/65 96 05/04/17 13:43 82 187/76 05/04/17 12:22 83 187/76 100 05/04/17 10:00 82 100 - Physical Examination General: No Apparent Distress HEENT: Positive: PERRL Neck: Positive: neck supple Cardiac: Positive: Reg Rate and Rhythm Lungs: Positive: Decreased Breath Sounds Neuro: Positive: Grossly Intact Abdomen: Positive: Soft Skin: Positive: Clear Extremities: Absent: edema - Labs and Meds Cardiac Enzymes 05/05/17 Range/Units 05:18 AST 37 (5-40) units/L Comprehensive Metabolic Panel 05/05/17 Range/Units 05:18 Sodium 139 (137-145) mmol/L Potassium 4.5 (3.6-5.0) mmol/L Chloride 100.6 (98-107) mmol/L Carbon Dioxide 26 (22-30) mmol/L BUN 18 H (7-17) mg/dL Creatinine 4.4 H D (0.7-1.2) mg/dL Glucose 134 H (65-100) mg/dL Calcium 8.7 (8.4-10.2) mg/dL AST 37 (5-40) units/L ALT 13 (7-56) units/L Alkaline Phosphatase 129 (35-129) units/L Total Protein 6.2 L (6.3-8.2) g/dL Albumin 3.0 L (3.9-5) g/dL
--- NOTE | 2017-05-05 10:02 | Progress Note ---
Assessment and Plan Assessment and plan: --Bilateral pleural effusion; chest ultrasound revealed rt 647CC/lt 711cc Pulmonary recommended Ultrasound-guided thoracentesis, patient and family refused --Acute on chronic combined systolic and diastolic heart failure Ejection fraction 40-45%, continue current anti-failure medications, cardiology following --Recurrent hospitalizations with CHF exacerbation, optimize medications, Cardiology recommended heart, patient and family --End Stage renal disease on hemodialysis per schedule, Nephrology following --Hypertension; moderate control, continue current antihypertensives and when necessary medications --Dyslipidemia; stable on lipid-lowering agents, low-cholesterol diet --Type 2 diabetes mellitus; Accu-Chek sliding scale coverage and ADA diet and glipizide --DVT prophylaxis; renal dose of heparin --Obesity; BMI 37.5, counseling done advised dietary modification exercise as tolerated and weight reduction when medically stable DC planning. Possible discharge tomorrow if stable and cleared by pulmonary , nephrology and cardiology Plan of care discussed with the patient and her son at the bedside Answered all their questions History Interval history: Patient Seen and evaluated medical records reviewed No new events reported by nursing staff Son was asking about thoracentesis However records show the test was canceled because the patient refused Alert awake responding appropriately vitals stable Hospitalist Physical - Constitutional Vitals: Temp Pulse Resp BP Pulse Ox 98.7 F 79 20 118/50 95 05/05/17 08:46 05/05/17 08:46 05/05/17 08:46 05/05/17 08:46 05/05/17 08:46 General appearance: Present: no acute distress, well-nourished, obese - EENT Eyes: Present: PERRL, EOM intact - Neck Neck: Present: supple, normal ROM - Respiratory Respiratory effort: normal Respiratory: bilateral: diminished, negative: rales, rhonchi, wheezing - Cardiovascular Rhythm: regular Heart Sounds: Present: S1 & S2 - Extremities Extremities: no ischemia, No edema - Abdominal General gastrointestinal: soft, non-tender, non-distended, normal bowel sounds - Integumentary Integumentary: Present: clear, warm - Psychiatric Psychiatric: appropriate mood/affect, cooperative - Neurologic Neurologic: CNII-XII intact, moves all extremities Results - Labs CBC & Chem 7: 05/04/17 05:44 05/05/17 05:18 Labs: Laboratory Last Values WBC 9.2 K/mm3 (4.5-11.0) 05/04/17 05:44 RBC 3.26 M/mm3 (3.65-5.03) L 05/04/17 05:44 Hgb 9.4 gm/dl (10.1-14.3) L 05/04/17 05:44 Hct 29.1 % (30.3-42.9) L 05/04/17 05:44 MCV 89 fl (79-97) 05/04/17 05:44 MCH 29 pg (28-32) 05/04/17 05:44 MCHC 32 % (30-34) 05/04/17 05:44 RDW 15.5 % (13.2-15.2) H 05/04/17 05:44 Plt Count 225 K/mm3 (140-440) 05/04/17 05:44 Lymph % (Auto) 18.6 % (13.4-35.0) 05/04/17 05:44 [place] % (Auto) 7.0 % (0.0-7.3) 05/04/17 05:44 Eos % (Auto) 3.8 % (0.0-4.3) 05/04/17 05:44 Baso % (Auto) 1.0 % (0.0-1.8) 05/04/17 05:44 Lymph # 1.7 K/mm3 (1.2-5.4) 05/04/17 05:44 [place] # 0.6 K/mm3 (0.0-0.8) 05/04/17 05:44 Eos # 0.4 K/mm3 (0.0-0.4) 05/04/17 05:44 Baso # 0.1 K/mm3 (0.0-0.1) 05/04/17 05:44 Seg Neutrophils % 69.6 % (40.0-70.0) 05/04/17 05:44 Seg Neutrophils # 6.4 K/mm3 (1.8-7.7) 05/04/17 05:44 PT 14.7 Sec. (12.2-14.9) 05/02/17 15:02 INR 1.09 (0.87-1.13) 05/02/17 15:02 APTT 29.9 Sec. (24.2-36.6) 04/30/17 07:45 D-Dimer 1589.45 ng/mlDDU (0-234) H 04/30/17 07:45 POC ABG pH 7.438 (7.35-7.45) 05/02/17 18:15 POC ABG pCO2 47.1 (35-45) H 05/02/17 18:15 POC ABG pO2 86 (80-105) 05/02/17 18:15 POC ABG HCO3 31.8 05/02/17 18:15 POC ABG Total CO2 33 05/02/17 18:15 POC ABG O2 Sat 97 05/02/17 18:15 POC ABG Base Excess 8 05/02/17 18:15 FiO2 2 % 05/02/17 18:15 Sodium 139 mmol/L (137-145) 05/05/17 05:18 Potassium 4.5 mmol/L (3.6-5.0) 05/05/17 05:18 Chloride 100.6 mmol/L (98-107) 05/05/17 05:18 Carbon Dioxide 26 mmol/L (22-30) 05/05/17 05:18 Anion Gap 17 mmol/L 05/05/17 05:18 BUN 18 mg/dL (7-17) H 05/05/17 05:18 Creatinine 4.4 mg/dL (0.7-1.2) H D 05/05/17 05:18 Estimated GFR 10 ml/min 05/05/17 05:18 BUN/Creatinine Ratio 4 % 05/05/17 05:18 Glucose 134 mg/dL (65-100) H 05/05/17 05:18 POC Glucose 140 (70-105) H 05/05/17 05:14 Calcium 8.7 mg/dL (8.4-10.2) 05/05/17 05:18 Total Bilirubin 0.30 mg/dL (0.1-1.2) 05/05/17 05:18 AST 37 units/L (5-40) 05/05/17 05:18 ALT 13 units/L (7-56) 05/05/17 05:18 Alkaline Phosphatase 129 units/L (35-129) 05/05/17 05:18 Troponin T 0.179 ng/mL (0.00-0.029) H* 04/30/17 11:49 Total Protein 6.2 g/dL (6.3-8.2) L 05/05/17 05:18 Albumin 3.0 g/dL (3.9-5) L 05/05/17 05:18 Albumin/Globulin Ratio 0.9 % 05/05/17 05:18 Triglycerides 170 mg/dL (2-149) H 04/30/17 06:33 Cholesterol 165 mg/dL (50-199) 04/30/17 06:33 LDL Cholesterol Direct 60 mg/dL (50-130) 04/30/17 06:33 HDL Cholesterol 71 mg/dL (40-59) H 04/30/17 06:33 Cholesterol/HDL Ratio 2.32 % 04/30/17 06:33
[2017-05-05] MEDS: TRENTAL PO SCH ×2 (10:15→22:23)
[2017-05-05] MEDS: PEPCID PO SCH (10:15)
[2017-05-05] MEDS: LOPRESSOR PO SCH ×2 (10:15→22:23)
[2017-05-05] MEDS: Renal Caps PO SCH (10:15)
[2017-05-05] MEDS: BABY ASPIRIN PO SCH (10:15)
--- NOTE | 2017-05-05 10:16 | Progress Note ---
Assessment and Plan (1) ESRD (end stage renal disease) on dialysis Current Visit: Yes Status: Acute Plan to address problem: HD today for clearance and volume removal Fluid restriction of 1 liter per day Renally dose medications Renal diet Obtain daily weights Assess dialysis needs daily (2) CHF (congestive heart failure) Current Visit: Yes Status: Acute Qualifiers: Congestive heart failure type: unspecified congestive heart failure type Congestive heart failure chronicity: acute on chronic Qualified Code(s): I50.9 - Heart failure, unspecified Plan to address problem: Conservative cardiac management per Cardiology Fluid restriction of 1 liter per day On Bumex 1 mg po BID UF with HD (3) HTN (hypertension) Current Visit: Yes Status: Acute Plan to address problem: Continue on anti-hypertensive agents (4) Diabetes Current Visit: Yes Status: Acute Plan to address problem: On Insulin as per Primary team (5) Anemia in ESRD (end-stage renal disease) Current Visit: Yes Status: Acute Plan to address problem: On Epogen 10,000 units with HD Subjective Date of service: 05/05/17 Principal diagnosis: Shortness of breath, ESRD Interval history: denies acute issues, SOB is improving Objective - Vital Signs Vital signs: Vital Signs - 12hr 05/04/17 05/05/17 05/05/17 23:59 04:59 08:46 Temperature 98.6 F 97.5 F L 98.7 F Pulse Rate 72 81 79 Respiratory 18 20 20 Rate Blood Pressure 141/60 138/40 Blood Pressure 118/50 [Left] O2 Sat by Pulse 98 100 95 Oximetry - General Appearance General appearance: well-developed, well-nourished, appears stated age EENT: ATNC, PERRL, mucous membranes moist Neck: no JVD, no carotid bruit Respiratory: Present: Decreased Breath Sounds Cardiology: regular, S1S2 Gastrointestinal: normoactive bowel sounds Integumentary: no rash, warm and dry Neurologic: no focal deficit, no asterixis, alert and oriented x3 Musculoskeletal: other (trace pitting edema in BLE) Psychiatric: mood/affect appropriate, cooperative - Lab 05/04/17 05:44 05/05/17 05:18 Most recent lab results Calcium 8.7 mg/dL (8.4-10.2) 05/05/17 05:18
--- NOTE | 2017-05-05 16:41 | Progress Note ---
Assessment and Plan .Patient is in hemodialysis. O2 saturation 95% on 2 litres O2.Patient does not want to go through thoracentesis.Patients repeat chest xray reported small left pleural effusion. Atelectasis at the basis.Patient says breathing better, no chest pain, no cough. - Patient Problems (1) CHF (congestive heart failure) Current Visit: Yes Status: Acute Qualifiers: Congestive heart failure type: unspecified congestive heart failure type Congestive heart failure chronicity: acute on chronic Qualified Code(s): I50.9 - Heart failure, unspecified Plan to address problem: Patient is on Bumex and Lopressor and hydralgine. Management as per cardiology. (2) Diabetes Current Visit: Yes Status: Acute Plan to address problem: Management as per primary care. (3) HTN (hypertension) Current Visit: Yes Status: Acute Plan to address problem: Management as per primary care. (4) ESRD (end stage renal disease) on dialysis Current Visit: Yes Status: Acute Plan to address problem: Management as per Nephrology. (5) Pleural effusion due to CHF (congestive heart failure) Current Visit: No Status: Acute Plan to address problem: Patient thoracensis. Repeat chest xray reported small left pleural effusion. Subjective Date of service: 05/05/17 Principal diagnosis: Shortness of breath, ESRD Interval history: Patient receiving hemodialysis. O2 saturation 95% on 2 litres O2.Patient does not want to go through thoracentesis.Patients repeat chest xray reported small left pleural effusion. Atelectasis at the basis.Patient says breathing better, no chest pain, no cough. Objective Vital Signs - 12hr 05/05/17 05/05/17 05/05/17 04:59 08:46 10:00 Temperature 97.5 F L 98.7 F Pulse Rate 81 79 Respiratory 20 20 Rate Blood Pressure 138/40 Blood Pressure 118/50 [Left] O2 Sat by Pulse 100 95 100 Oximetry 05/05/17 05/05/17 10:15 12:38 Temperature 98.2 F Pulse Rate 82 Respiratory 20 Rate Blood Pressure 118/50 Blood Pressure 150/53 [Left] O2 Sat by Pulse 95 Oximetry Constitutional: no acute distress, alert Eyes: non-icteric ENT: oropharynx moist Neck: supple, no lymphadenopathy Ascultation: Bilateral: diminished breath sounds Cardiovascular: regular rate and rhythm Gastrointestinal: normoactive bowel sounds, soft, non-tender Integumentary: normal Extremities: no cyanosis, edema Neurologic: normal mental status, non-focal exam, pupils equal and round, CN II- XII normal Psychiatric: mood appropriate CBC and BMP: 05/04/17 05:44 05/05/17 05:18 ABG, PT/INR, D-dimer: ABG POC ABG pH 7.438 (7.35-7.45) 05/02/17 18:15 POC ABG pCO2 47.1 (35-45) H 05/02/17 18:15 POC ABG pO2 86 (80-105) 05/02/17 18:15 POC ABG HCO3 31.8 05/02/17 18:15 POC ABG Total CO2 33 05/02/17 18:15 POC ABG O2 Sat 97 05/02/17 18:15 PT/INR, D-dimer PT 14.7 Sec. (12.2-14.9) 05/02/17 15:02 INR 1.09 (0.87-1.13) 05/02/17 15:02 D-Dimer 1589.45 ng/mlDDU (0-234) H 04/30/17 07:45 Abnormal lab findings: Abnormal Labs 04/30/17 04/30/17 04/30/17 06:33 06:33 07:45 RBC 3.14 L Hgb 9.1 L Hct 28.3 L RDW 15.3 H [place] % (Auto) Seg Neutrophils % 71.0 H D-Dimer 1589.45 H POC ABG pCO2 Potassium BUN 37 H Creatinine 4.0 H Glucose 117 H POC Glucose Calcium Alkaline Phosphatase Troponin T 0.194 H* Total Protein Albumin Triglycerides 170 H HDL Cholesterol 71 H 04/30/17 04/30/17 04/30/17 09:24 11:49 17:12 RBC Hgb Hct RDW [place] % (Auto) Seg Neutrophils % D-Dimer POC ABG pCO2 Potassium BUN Creatinine Glucose POC Glucose 209 H Calcium Alkaline Phosphatase Troponin T 0.188 H* 0.179 H* Total Protein Albumin Triglycerides HDL Cholesterol 04/30/17 05/01/17 05/01/17 23:02 08:10 11:45 RBC Hgb Hct RDW [place] % (Auto) Seg Neutrophils % D-Dimer POC ABG pCO2 Potassium BUN Creatinine Glucose POC Glucose 216 H 154 H 247 H Calcium Alkaline Phosphatase Troponin T Total Protein Albumin Triglycerides HDL Cholesterol 05/01/17 05/01/17 05/01/17 17:49 18:21 21:53 RBC Hgb Hct RDW [place] % (Auto) Seg Neutrophils % D-Dimer POC ABG pCO2 Potassium BUN Creatinine 2.3 H Glucose 191 H POC Glucose 172 H 235 H Calcium 8.1 L Alkaline Phosphatase Troponin T Total Protein Albumin Triglycerides HDL Cholesterol 05/02/17 05/02/17 05/02/17 04:00 04:00 08:36 RBC 3.09 L Hgb 9.1 L Hct 27.7 L RDW [place] % (Auto) Seg Neutrophils % 72.6 H D-Dimer POC ABG pCO2 Potassium BUN 20 H Creatinine 3.3 H Glucose 194 H POC Glucose 209 H Calcium Alkaline Phosphatase Troponin T Total Protein Albumin Triglycerides HDL Cholesterol 05/02/17 05/02/17 05/02/17 17:09 18:15 22:00 RBC Hgb Hct RDW [place] % (Auto) Seg Neutrophils % D-Dimer POC ABG pCO2 47.1 H Potassium BUN Creatinine Glucose POC Glucose 255 H 189 H Calcium Alkaline Phosphatase Troponin T Total Protein Albumin Triglycerides HDL Cholesterol 05/03/17 05/03/17 05/03/17 06:39 06:39 08:02 RBC 2.93 L Hgb 8.4 L Hct 25.9 L RDW 15.3 H [place] % (Auto) 7.5 H Seg Neutrophils % D-Dimer POC ABG pCO2 Potassium 3.5 L BUN Creatinine 2.7 H Glucose 186 H POC Glucose 152 H Calcium Alkaline Phosphatase Troponin T Total Protein Albumin Triglycerides HDL Cholesterol 05/03/17 05/03/17 05/04/17 16:28 21:26 05:44 RBC Hgb Hct RDW [place] % (Auto) Seg Neutrophils % D-Dimer POC ABG pCO2 Potassium BUN Creatinine 2.9 H Glucose 160 H POC Glucose 197 H 266 H Calcium Alkaline Phosphatase 134 H Troponin T Total Protein Albumin 3.2 L Triglycerides HDL Cholesterol 05/04/17 05/04/17 05/04/17 05:44 08:07 12:27 RBC 3.26 L Hgb 9.4 L Hct 29.1 L RDW 15.5 H [place] % (Auto) Seg Neutrophils % D-Dimer POC ABG pCO2 Potassium BUN Creatinine Glucose POC Glucose 171 H 179 H Calcium Alkaline Phosphatase Troponin T Total Protein Albumin Triglycerides HDL Cholesterol 05/04/17 05/04/17 05/05/17 17:20 21:58 05:14 RBC Hgb Hct RDW [place] % (Auto) Seg Neutrophils % D-Dimer POC ABG pCO2 Potassium BUN Creatinine Glucose POC Glucose 228 H 225 H 140 H Calcium Alkaline Phosphatase Troponin T Total Protein Albumin Triglycerides HDL Cholesterol 05/05/17 05:18 RBC Hgb Hct RDW [place] % (Auto) Seg Neutrophils % D-Dimer POC ABG pCO2 Potassium BUN 18 H Creatinine 4.4 H D Glucose 134 H POC Glucose Calcium Alkaline Phosphatase Troponin T Total Protein 6.2 L Albumin 3.0 L Triglycerides HDL Cholesterol Chest x-ray: report reviewed (Small left pleural effusion.Bibasilar atelectasis. ), image reviewed
[2017-05-05] MEDS: PROCRIT IV PRN (18:00)
[2017-05-05] MEDS ORDERED: NACL 0.9 (PRIMING MACHINE ONLY DIALYSIS) MC ONE (18:01)
[2017-05-05] MEDS ORDERED: NACL 0.9% 1000 ML 2,000 ML ONE (19:40)
[2017-05-05] MEDS: HEPARIN IV PRN (19:55)
[2017-05-05] MEDS: PRAVACHOL PO SCH (22:23)
[2017-05-06] MEDS: BUMEX PO SCH (06:57)
[2017-05-06] MEDS: APRESOLINE PO SCH (06:57)
[2017-05-06 07:05] LABS: Calcium 8.2 mg/dL (8.4-10.2); Chloride 96.7 mmol/L (98-107); Potassium 3.7 mmol/L (3.6-5.0)
[2017-05-06] MEDS: NOVOLOG SUB-Q SCH ×3 (07:54→16:56)
[2017-05-06] MEDS: SODIUM BICARBONATE PO SCH ×2 (08:21→14:57)
--- NOTE | 2017-05-06 09:19 | Progress Note ---
Assessment and Plan - Patient Problems (1) ESRD (end stage renal disease) on dialysis Current Visit: Yes Status: Acute Plan to address problem: Received hemodialysis yesterday for UF and clearance No acute indication for HD today Fluid restriction of 1 liter per day Renally dose medications Renal diet Obtain daily weights Assess dialysis needs daily Ok to be discharged from renal standpoint. Will arrange for patient to receive 4 dialysis treatment days at her outpatient dialysis clinic instead of 3 to help with volume removal. (2) CHF (congestive heart failure) Current Visit: Yes Status: Acute Qualifiers: Congestive heart failure type: unspecified congestive heart failure type Congestive heart failure chronicity: acute on chronic Qualified Code(s): I50.9 - Heart failure, unspecified Plan to address problem: Conservative cardiac management per Cardiology Fluid restriction of 1 liter per day On Bumex 1 mg po BID (3) HTN (hypertension) Current Visit: Yes Status: Acute Plan to address problem: Continue on anti-hypertensive agents (4) Pleural effusion due to CHF (congestive heart failure) Current Visit: No Status: Acute Plan to address problem: Refused Thoracentesis (5) Diabetes Current Visit: Yes Status: Acute Plan to address problem: On Insulin as per Primary team (6) Anemia in ESRD (end-stage renal disease) Current Visit: Yes Status: Acute Plan to address problem: On Epogen 10,000 units with HD Subjective Date of service: 05/06/17 Principal diagnosis: Shortness of breath, ESRD Interval history: Patient seen sitting up in bed. Patient states her breathing is good. Son at bedside. Objective - Vital Signs Vital signs: Vital Signs - 12hr 05/05/17 05/06/17 05/06/17 22:23 00:02 04:26 Temperature 98.4 F 98.5 F Pulse Rate 82 69 72 Respiratory 18 20 Rate Blood Pressure 141/60 129/54 171/62 O2 Sat by Pulse 100 100 Oximetry 05/06/17 06:57 Temperature Pulse Rate 72 Respiratory Rate Blood Pressure 171/62 O2 Sat by Pulse Oximetry - General Appearance General appearance: well-developed, appears stated age EENT: ATNC, PERRL, hearing intact, vision intact Respiratory: Present: Decreased Breath Sounds Cardiology: regular, S1S2 Gastrointestinal: normoactive bowel sounds Integumentary: warm and dry Neurologic: alert and oriented x3 Musculoskeletal: other (mild edema to bilateral lower extremities) Psychiatric: mood/affect appropriate - Lab 12/15/17 05:44 05/06/17 06:13 Most recent lab results Calcium 8.2 mg/dL (8.4-10.2) L 05/06/17 06:13
--- NOTE | 2017-05-06 10:04 | Progress Note ---
Assessment and Plan Acute on chronic combined heart failure Bilateral Pleural effusion Cardiomyopathy, LVEF 40-45% Attempt at cath in the past aborted due to inability to gain arterial access. Vascular US on the LE done 03/2017 showed normal arterial flow in the LE with no focal stenosis Patient does not want a heart cath ESRD on HD Chronic anemia Diabetes Recommendations: Dialysis for fluid management. Conservative cardiac management. May go home cardiac rios Subjective Date of service: 05/06/17 Principal diagnosis: Shortness of breath, ESRD Interval history: Patient is doing well She is sitting up in bed She wants to go home Objective Vital Signs Temp Pulse Resp BP BP Pulse Ox 05/06/17 06:57 72 171/62 05/06/17 04:26 98.5 F 72 20 171/62 100 05/06/17 00:02 98.4 F 69 18 129/54 100 05/05/17 22:23 82 141/60 05/05/17 21:10 97 05/05/17 19:50 98.7 F 82 20 141/60 100 05/05/17 18:23 98.2 F 81 20 140/61 100 05/05/17 18:15 98.0 F 80 18 148/45 05/05/17 18:00 77 118/65 05/05/17 17:45 77 127/62 05/05/17 17:30 82 122/61 05/05/17 17:15 77 129/64 05/05/17 17:00 78 119/43 05/05/17 16:45 77 113/61 05/05/17 16:30 77 100/56 05/05/17 16:15 79 97/51 05/05/17 16:00 78 93/50 05/05/17 15:45 79 93/51 05/05/17 15:30 82 81/54 05/05/17 15:15 80 134/55 05/05/17 15:00 80 111/57 05/05/17 14:45 80 159/73 05/05/17 14:30 98.2 F 82 18 158/72 05/05/17 12:38 98.2 F 82 20 150/53 95 05/05/17 11:11 98.2 F 81 20 150/53 95 05/05/17 10:15 118/50 - Physical Examination General: No Apparent Distress HEENT: Positive: PERRL Neck: Positive: neck supple Cardiac: Positive: Reg Rate and Rhythm Lungs: Positive: Normal Exam Neuro: Positive: Grossly Intact Abdomen: Positive: Soft Skin: Positive: Clear Extremities: Absent: edema - Labs and Meds Comprehensive Metabolic Panel 05/06/17 Range/Units 06:13 Sodium 138 (137-145) mmol/L Potassium 3.7 (3.6-5.0) mmol/L Chloride 96.7 L (98-107) mmol/L Carbon Dioxide 30 (22-30) mmol/L BUN 12 (7-17) mg/dL Creatinine 3.3 H (0.7-1.2) mg/dL Glucose 229 H (65-100) mg/dL Calcium 8.2 L (8.4-10.2) mg/dL - Allied health notes Allied health notes reviewed: nursing
[2017-05-06] MEDS: TRENTAL PO SCH (10:21)
[2017-05-06] MEDS: Renal Caps PO SCH (10:21)
[2017-05-06] MEDS: BABY ASPIRIN PO SCH (10:21)
[2017-05-06] MEDS: LOPRESSOR PO SCH (10:21)
[2017-05-06] MEDS: PEPCID PO SCH (10:21)
--- NOTE | 2017-05-06 15:27 | Discharge Summary ---
Providers - Providers Date of Admission: 04/30/17 12:29 Date of discharge: 05/06/17 Attending physician: MAYNOR SUMNER 04/30/17 12:32 Consult to Physician [CONS] Routine Consulting Provider: KAYODE PACE Reason For Exam: esrd Place consult to:: Dr. Hamilton Notified:: yes Phone number called:: [phone] Was contact made?: Yes If yes, spoke with:: Dr. Hamilton Time called:: 17:28 05/01/17 15:58 Consult to Physician [CONS] Routine Consulting Provider: OMAR CARDENAS Reason For Exam: SOB Place consult to:: Pulmonary Notified:: YES Was contact made?: Yes If yes, spoke with:: DR DUKES Time called:: 17:50 05/01/17 16:05 Consult to Physician [CONS] Routine Consulting Provider: ANNALISE ACOSTA Reason For Exam: CHF exacerbation Notified:: Y Primary care physician: MELBA FELIX Hospitalization Reason for admission: Worsening shortness of breath Condition: Fair Pertinent studies: VQ scan : low probability for PE CXR Chest US Hospital course: Patient was admitted with worsening shortness of breath,Seen by cardiology, Nephrology and pulmonary. Symptoms slightly improve.meds were optimised. Today patient is coomfortable, No new complaints Vital signs are stable,Physical exam ,no new changes. Patient is stable at discharge Discharge Diagnosis: --Bilateral pleural effusion; chest ultrasound revealed rt 647CC/lt 711cc Pulmonary recommended Ultrasound-guided thoracentesis, patient and family refused --Acute on chronic combined systolic and diastolic heart failure Ejection fraction 40-45%, on anti-failure medications, f/u cardiology up on discharge --Recurrent hospitalizations with CHF exacerbation, optimize medications, Cardiology recommended heartcath , patient and family refused --End Stage renal disease on hemodialysis per schedule, Nephrology increased HD to 4 times a week. --Hypertension; moderate control, continue current antihypertensives --Dyslipidemia; stable on lipid-lowering agents, low-cholesterol diet --Type 2 diabetes mellitus; Accu-Chek sliding scale coverage and ADA diet and glipizide --Obesity; BMI 37.5, counselled dietary modification exercise as tolerated , weight reduction when medically stable Disposition: TO HOME OR SELFCARE Time spent for discharge: 33 min Core Measure Documentation - Palliative Care Palliative Care/ Comfort Measures: Not Applicable - Core Measures Any of the following diagnoses?: none Exam - Constitutional Vitals: Temp Pulse Resp BP Pulse Ox 98.4 F 76 18 156/51 99 05/06/17 12:55 05/06/17 12:55 05/06/17 12:55 05/06/17 12:55 05/06/17 12:55 General appearance: Present: no acute distress, well-nourished - EENT Eyes: Present: PERRL, EOM intact - Neck Neck: Present: supple, normal ROM - Respiratory Respiratory effort: normal Respiratory: bilateral: diminished, rales, negative: rhonchi, wheezing - Cardiovascular Rhythm: regular Heart Sounds: Present: S1 & S2 - Extremities Extremities: no ischemia, No edema - Abdominal General gastrointestinal: Present: soft, non-tender, non-distended, normal bowel sounds - Integumentary Integumentary: Present: clear, warm - Musculoskeletal Musculoskeletal: strength equal bilaterally - Psychiatric Psychiatric: appropriate mood/affect, cooperative - Neurologic Neurologic: CNII-XII intact, moves all extremities Plan Activity: advance as tolerated Diet: renal Additional Instructions: f/u renal and HD per schedule. 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 History of chest pain or shortness of breath contact M.D.or go to emergency room Follow up with: MELBA FELIX MD [Primary Care Provider] - 3-5 Days JANNA HAMILTON MD [Staff Physician] - 7 Days ANNALISE ACOSTA MD [Staff Physician] - 7 Days OMAR CARDENAS MD [Staff Physician] - 7 Days Prescriptions: hydrALAZINE [Apresoline TAB] 25 mg PO Q8HR #90 tablet Pantoprazole [Protonix TAB] 40 mg PO DAILY #30 tablet
[2017-05-06 18:10] VITALS: BP 176/58
== END 2017-05-06 18:25 | disposition home or self-care (01) | DRG 291 ==
LOC: ED 05:31 → 4A 12:29
PROVIDERS: ADMIT Internal Medicine; ATTEND Internal Medicine
PROC: 5A1D70Z Performance of Urinary Filtration, Intermittent, Less than 6 Hours Per Day (ICD-10-PCS; 2017-05-01)
PROC: 4A033R1 Measurement of Arterial Saturation, Peripheral, Percutaneous Approach (ICD-10-PCS; principal; 2017-05-02)
PROC: 5A1D70Z Performance of Urinary Filtration, Intermittent, Less than 6 Hours Per Day (ICD-10-PCS; 2017-05-02)
PROC: 5A1D70Z Performance of Urinary Filtration, Intermittent, Less than 6 Hours Per Day (ICD-10-PCS; 2017-05-03)
PROC: 5A1D70Z Performance of Urinary Filtration, Intermittent, Less than 6 Hours Per Day (ICD-10-PCS; 2017-05-05)
DX: I13.2 Hypertensive heart and chronic kidney disease with heart failure and with stage 5 chronic kidney disease, or end stage renal disease (principal); N18.6 End stage renal disease; J96.01 Acute respiratory failure with hypoxia; I50.43 Acute on chronic combined systolic (congestive) and diastolic (congestive) heart failure; E66.9 Obesity, unspecified; E11.22 Type 2 diabetes mellitus with diabetic chronic kidney disease; E78.5 Hyperlipidemia, unspecified; I42.9 Cardiomyopathy, unspecified; D63.1 Anemia in chronic kidney disease; Z82.49 Family history of ischemic heart disease and other diseases of the circulatory system; Z88.5 Allergy status to narcotic agent; Z88.0 Allergy status to penicillin; Z68.37 Body mass index [BMI] 37.0-37.9, adult; Z99.2 Dependence on renal dialysis
CPT/HCPCS: 36415; 36600; 71010; 71020; 76604; 78582; 80048; 80053; 80061; 82803; 82962; 84484; 85025; 85379; 85610; 85730; 93005; 93010; 94640; 94760; 96374; 96375; A9270-GY; A9540; A9558; J0360; J0885; J1644; J1815; J1940; J7030

== ENCOUNTER 2017-10-22 08:15 | Outpatient (CLI) | payer OTHER ==
--- NOTE | 2017-10-24 11:06 | Cat Scan Report ---
FINAL REPORT EXAM: CT ANGIO ABD/FEMORAL ABD AORTA HISTORY: ATHEROSCLEROSIS OF STEBBINS ARTERIES OF EXTREMETIES WITH GANGRENE COMPARISON: None. TECHNIQUE: Multiple contiguous axial images were obtained from the lung bases to the bilateral ankles after administration of IV contrast. Reformatted sagittal and coronal images were available for review. 3D reconstruction of the arteries was also performed. FINDINGS: Vasculature: Abdominal aorta is normal in caliber without evidence of aneurysm. There are scattered atherosclerotic plaques and calcifications. There is atherosclerotic plaque and calcification at the origins of the celiac axis and the superior mesenteric artery, without significant stenosis. There are 2 renal arteries on the right and 2 renal arteries on the left, all of which are patent. The inferior mesenteric artery is patent. The right common iliac artery is patent and normal in caliber. There is circumferential calcification of the right external iliac artery. The right internal iliac artery is patent and normal in caliber. There is circumferential calcification of the right common femoral artery, superficial femoral artery, and profunda branch, which are otherwise patent and without stenosis. The right popliteal artery demonstrates scattered atherosclerotic disease but remains patent. There is a patent anterior tibial artery to the level of the ankle. There is a hypoplastic posterior tibial artery. The peroneal artery is patent to the level of the ankle. The distal posterior tibial artery is a branch off of the peroneal artery, which is intermittently occluded the dorsalis pedis artery is patent. The left common iliac artery is patent and normal in caliber. There is scatter compressible calcification of the left external iliac artery. The left internal iliac artery is patent and normal in caliber. There is circumferential calcification of the left common femoral artery, superficial femoral artery, and profunda branches, which are patent and without stenosis. There is intermittent atherosclerotic disease of the popliteal artery, which remains patent. There is a patent anterior tibial artery and peroneal artery to the level of the ankle. There is a hypoplastic posterior tibial artery. The distal posterior tibial artery is a branch off of the peroneal artery, which is patent to the level of the foot. The dorsalis pedis artery is patent. Lung bases: Small bilateral pleural effusions with associated atelectasis. Visualized heart and mediastinum: Normal. Liver: Normal. Spleen: Normal. Pancreas: Normal. Gallbladder and Biliary Tree: Several calcified gallstones. No pericholecystic fluid or gallbladder wall thickening. No biliary ductal dilatation. Adrenal glands: Normal. Kidneys: Symmetric enhancement to both kidneys. No hydronephrosis. Bladder: Normal. Pelvic organs: Normal. Bowel: No focal wall thickening. No evidence of obstruction. Large amount of stool within the colon. Normal appendix without surrounding inflammatory change. Diverticulosis of the sigmoid colon without evidence of diverticulitis. Peritoneum: No significant mesenteric adenopathy. No free air or free fluid. Bones and soft tissues: No suspicious osseous lesions.No acute fracture or dislocation. Thickening of the soft tissues of the posterior right lower leg and bilateral heel areas. Severe degenerative changes of the talocalcaneal joint on the right. IMPRESSION: 1. Scattered atherosclerotic disease of the abdominal aorta without evidence of aneurysm or dissection. Normal branching pattern of the abdominal aorta with patent branch vasculature. 2. Normal variant hypoplastic posterior tibial arteries bilaterally, with the distal posterior tibial artery branching off the peroneal arteries. 3. Occluded right distal posterior tibial artery. Patent right dorsalis pedis artery. Patent 2 vessel flow of the right lower leg into the ankle. 4. Patent 2 vessel flow into the left ankle with patent left distal posterior tibial artery and dorsalis pedis artery. 5. Thickening of the soft tissues of the posterior right lower leg. 6. Edema and thickening of the soft tissues of the bilateral heel areas. 7. 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 8. Small bilateral pleural effusions with associated atelectasis. 9. Cholelithiasis without evidence for cholecystitis. 10. Diverticulosis of the sigmoid colon without evidence of diverticulitis.
== END 2017-10-22 08:16 | disposition home or self-care (01) ==
LOC: CT 08:15
PROVIDERS: ATTEND Radiology Diagnostic Radiology
DX: I13.0 Hypertensive heart and chronic kidney disease with heart failure and stage 1 through stage 4 chronic kidney disease, or unspecified chronic kidney disease (principal); E11.52 Type 2 diabetes mellitus with diabetic peripheral angiopathy with gangrene; E11.22 Type 2 diabetes mellitus with diabetic chronic kidney disease; N18.6 End stage renal disease; I50.9 Heart failure, unspecified; K80.20 Calculus of gallbladder without cholecystitis without obstruction; I70.0 Atherosclerosis of aorta; I70.263 Atherosclerosis of native arteries of extremities with gangrene, bilateral legs; M12.88 Other specific arthropathies, not elsewhere classified, other specified site; M19.071 Primary osteoarthritis, right ankle and foot; J90 Pleural effusion, not elsewhere classified; J98.11 Atelectasis; K57.30 Diverticulosis of large intestine without perforation or abscess without bleeding; I25.10 Atherosclerotic heart disease of native coronary artery without angina pectoris; E66.01 Morbid (severe) obesity due to excess calories; Z88.0 Allergy status to penicillin
CPT/HCPCS: 36415; 75635; 82565; 84520; Q9967

== ENCOUNTER 2017-12-04 06:02 | Day surgery (SDC) | payer OTHER ==
[~2017-12-04 06:02] MED LIST: NACL 0.9% 1000 ML 1,000 ML IV SCH; VANCOMYCIN/NS 1 GM/250 ML 1 GM/250 ML BAG IV NR
[2017-12-04] MEDS ORDERED: NACL BACTERIOSTATIC INFILTRATI ONE (06:38)
[2017-12-04] MEDS ORDERED: XYLOCAINE MPF 2% ONE (07:32)
[2017-12-04] MEDS ORDERED: SUBLIMAZE ONE (07:33)
[2017-12-04] MEDS ORDERED: DIPRIVAN 10 MG/ML IV ONE (07:34)
[2017-12-04] MEDS ORDERED: PROTAMINE SULFATE ONE (07:49)
[2017-12-04] MEDS ORDERED: NACL 0.9% 500 ML 500 ML ONE (07:50)
[2017-12-04] MEDS ORDERED: MARCAINE 0.5% 30 ML INFILTRATI ONE (07:50)
[2017-12-04] MEDS ORDERED: HEPARIN 10,000 UNITS/10 ML ONE (07:50)
[2017-12-04] MEDS ORDERED: DILAUDID IV PRN (08:02)
--- NOTE | 2017-12-04 08:12 | Anesthesia Consultation ---
Anesthesia Consult and Med Hx Date of service: 12/04/17 - Airway Anesthetic Teeth Evaluation: Caps ROM Head & Neck: Adequate Mental/Hyoid Distance: Adequate Mallampati Class: Class III Intubation Access Assessment: Possibly Difficult - Pulmonary Exam CTA: Yes - Cardiac Exam Cardiac Exam: RRR - Pre-Operative Health Status ASA Pre-Surgery Classification: ASA4 Proposed Anesthetic Plan: MAC - Pre-Anesthesia Comment Pre-Anesthesia Comments: EF 55%, dialysis T.TH.S., K 5.6, Glucose 70 - Cardiovascular System Hx Hypertension: Yes Hx Coronary Artery Disease: Yes Hx Heart Attack/AMI: Yes (2017) Hx Angina: Yes (2017) Hx Peripheral Vascular Disease: Yes - Endocrine Hx Renal Disease: Yes Hx End Stage Renal Disease: Yes Hx Non-Insulin Dependent Diabetes: Yes - Hematic Hx Anemia: Yes
[2017-12-04] MEDS ORDERED: Vasostrict ONE (08:22)
--- NOTE | 2017-12-04 08:23 | Anesthesia Day of Surgery ---
Anesthesia Day of Surgery - Day of Surgery Patient Examined: Yes Patient H&P Reviewed: Yes Patient is NPO: Yes Beta Blockers: Yes
[2017-12-04] MEDS ORDERED: ePHEDrine 50 MG/5 ML-0.9% NACL IV ONE (08:56)
[2017-12-04] MEDS ORDERED: LACTATED RINGERS 1,000 ML IV SCH (09:00)
[2017-12-04] MEDS ORDERED: NACL 0.9% IR ONE (09:44)
[2017-12-04] MEDS ORDERED: MARCAINE 0.5% INFILTRATI ONE (09:44)
[2017-12-04] MEDS ORDERED: HEPARIN 10,000 UNITS/10 ML 2,000 UNIT in NACL 0.9% 500 ML 500 ML IR ONE (09:45)
[2017-12-04] MEDS ORDERED: NEO SYNEPHRINE/NS Syringe(OR USE) IV ONE (11:28)
[2017-12-04] MEDS ORDERED: ZOFRAN ONE (11:28)
[2017-12-04] MEDS ORDERED: D50W (25GM) Syringe IV ONE ×2 (11:39→11:58)
--- NOTE | 2017-12-04 11:42 | Short Stay Summary ---
Short Stay Documentation Date of service: 12/04/17 Narrative H&P: See H&P - History H&P: obtained from office - Allergies and Medications Current Medications: Allergies codeine Allergy (Verified 11/30/17 16:51) Hives morphine Allergy (Verified 11/30/17 16:51) confusion Penicillins Allergy (Verified 11/30/17 16:51) Hives Home Medications Medication Instructions Recorded Confirmed Last Taken Type glipiZIDE [Glucotrol] 10 mg PO BID 04/27/15 12/04/17 12/03/17 21:00 History Metoprolol [Lopressor TAB] 50 mg PO BID #60 tablet 04/05/17 12/04/17 12/04/17 06 :00 Rx Pravastatin [Pravachol] 20 mg PO QHS #30 tablet 04/05/17 12/04/17 12/03/17 21: 00 Rx Sodium Bicarbonate 650 mg PO TID #90 tablet 04/05/17 11/30/17 04/29/17 Rx Bumetanide [Bumex 1 mg tab] 1 mg PO BID 04/30/17 12/04/17 12/03/17 09:00 History Pentoxifylline 400 mg PO TID 04/30/17 12/04/17 12/03/17 21:00 History Vit B Comp No.3/Folic/C/Biotin 1 each PO DAILY 04/30/17 12/04/17 12/03/17 09:00 History [Nephro-Chip Rx Tablet] Aspirin [Aspirin BABY CHEW TAB] 81 mg PO QDAY tab.chew 05/06/17 12/04/17 09:00 Rx Pantoprazole [Protonix TAB] 40 mg PO DAILY #30 tablet 05/06/17 12/04/17 Unknown Rx hydrALAZINE [Apresoline TAB] 25 mg PO Q8HR #90 tablet 05/06/17 12/04/17 01:00 Rx Active Medications Hydromorphone HCl (Dilaudid) 0.5 mg IV Q10MIN PRN PRN Reason: Pain , Severe (7-10) Stop: 12/04/17 18:00 Vancomycin HCl (Vancomycin/Ns 1 Gm/250 Ml) 1 gm in 250 mls @ 166.667 mls/hr IV PREOP NR; Protocol Stop: 12/04/17 23:59 Last Admin: 12/04/17 07:55 Dose: 166.667 mls/hr Lactated Ringer's (Lactated Ringers) 1,000 mls @ 42 mls/hr IV DIRECT FELECIA - Brief post op/procedure progress note Date of procedure: 12/04/17 Pre-op diagnosis: Complications of Dialysis Access Post-op diagnosis: same Procedure: Revision with Elevation of Left Brachial Basilic Arteriovenous Fistula Anesthesia: GETA Surgeon: DEBORAH CATALAN Estimated blood loss: 50-100ml Specimen disposition: to lab Condition: stable - Disposition Condition at discharge: Good Disposition: DC-01 TO HOME OR SELFCARE Short Stay Discharge Plan Activity: other (no heavy lifting with left arm) Wound: open to air, keep clean and dry, other (okay to wash the wound with soap and water but do not soak in water) Follow up with: DEBORAH CATALAN MD [Staff Physician] - 14 Days Prescriptions: HYDROcodone/APAP 7.5-325 [[place] 7.5/325] 1 each PO Q6HR PRN #40 tablet PRN Reason: Pain
[2017-12-04] MEDS ORDERED: PROVENTIL IH ONE (12:44)
[2017-12-04] MEDS ORDERED: PROVENTIL IH PRN (12:55)
[2017-12-04 17:45] VITALS: BP 153/49
--- NOTE | 2017-12-07 09:49 | Operative Report ---
Operative Report Operative Report: Date of procedure: 12/04/2017 Pre-operative diagnosis: Complications of Dialysis Access Post-operative diagnosis: Same Procedure(s): Revision with Elevation of Left Brachiobasilic AV Fistula Surgeon: Ketan Mckeon MD Resin Remover: None Anesthesia: General Endotracheal Anesthesia EBL: Minimal Counts: Correct Complications: None Condition: Stable Findings: Successful elevation of left brachiobasilic fistula with excellent thrill. Specimen: None Indication: The patient is a 62-year-old female with a history of end-stage renal disease who had a creation of a left brachiobasilic arteriovenous fistula that is in need of elevation. She was given the risk, benefits, and alternative procedures and consented to the procedure. Description of Procedure: The patient was brought to the operating room and laid in supine position after general endotracheal anesthesia was achieved her left arm was prepped and draped in normal sterile fashion. A longitudinal incision was then created on the medial aspect of the arm centered over the fistula extending from the axillary crease to the antecubital crease. Sharp dissection was used to continue the dissection down to the fistula. The fistula was then dissected circumferentially and all side branches were suture ligated and divided. A Linda-Wick tunneler was then used to tunnel from the distal part of the incision towards the proximal portion of the incision and a lateral and slightly curved direction. The fistula was then marked on the anterior surface , the inflow was controlled with a DeBakey, clamp and the outflow was controlled with bulldog clamps. This vessel was then divided near the arterial inflow and secured to the Linda-Wick tunneler with 2-0 silk and then pulled retrograde through the tunnel. I flushed the venous outflow with heparinized saline to assure that there was no evidence of twist or kinks. I then performed an end-to-end anastomosis between the proximal and distal ends using two 6-0 Prolenes in running fashion. Prior to completing the anastomosis I flushed the arterial inflow of the fistula to ensure there was no clot or debris. I then completed the anastomosis and removed all clamps allowing flow through the fistula which had an excellent thrill. I achieved hemostasis in the wound with a combination of direct pressure and electrocautery. I then anesthetized the wound with Exparel and closed the wound in 2 layers using a 3- 0 Vicryl in running fashion in the deep dermal layer and a 4-0 Monocryl in running fashion in the subcuticular. I then dressed the wound with Surgicel. The patient tolerated the procedure well, all sponge needle and instrument counts were correct, the patient was taken to the recovery area in stable condition.
== END 2017-12-04 06:03 | disposition home or self-care (01) ==
LOC: OR 06:02
PROVIDERS: ATTEND Surgery Vascular Surgery
DX: T82.898A Other specified complication of vascular prosthetic devices, implants and grafts, initial encounter (principal); E11.22 Type 2 diabetes mellitus with diabetic chronic kidney disease; I13.2 Hypertensive heart and chronic kidney disease with heart failure and with stage 5 chronic kidney disease, or end stage renal disease; N18.6 End stage renal disease; I50.9 Heart failure, unspecified; E11.51 Type 2 diabetes mellitus with diabetic peripheral angiopathy without gangrene; E78.00 Pure hypercholesterolemia, unspecified; I25.2 Old myocardial infarction; I25.10 Atherosclerotic heart disease of native coronary artery without angina pectoris; K21.9 Gastro-esophageal reflux disease without esophagitis; M13.842 Other specified arthritis, left hand; M13.841 Other specified arthritis, right hand; Y83.2 Surgical operation with anastomosis, bypass or graft as the cause of abnormal reaction of the patient, or of later complication, without mention of misadventure at the time of the procedure; Z79.84 Long term (current) use of oral hypoglycemic drugs; Z79.82 Long term (current) use of aspirin; Z88.5 Allergy status to narcotic agent; Z88.0 Allergy status to penicillin; Z98.891 History of uterine scar from previous surgery; Z98.890 Other specified postprocedural states
CPT/HCPCS: 36415; 36819; 36833; 82962; 84132; C1757; C9250; J1644; J2370; J2405; J2704; J3010; J3370; J7030; J7040; J2720

== ENCOUNTER 2018-05-28 05:51 | Inpatient (IN) | payer MEDICARE ==
[2018-05-28] MEDS ORDERED: NACL BACTERIOSTATIC INFILTRATI ONE (06:26)
[2018-05-28] MEDS ORDERED: DILAUDID IV PRN ×2 (06:53→08:08)
[2018-05-28] MEDS ORDERED: NACL 0.9% 1000 ML 1,000 ML IV SCH (07:00)
[2018-05-28] MEDS ORDERED: VANCOMYCIN/NS 1 GM/250 ML 1 GM/250 ML BAG IV NR (07:00)
[2018-05-28] MEDS ORDERED: DIPRIVAN 10 MG/ML IV ONE (07:07)
[2018-05-28] MEDS ORDERED: DILAUDID ONE (07:08)
[2018-05-28] MEDS ORDERED: VERSED IV ONE (07:08)
[2018-05-28] MEDS ORDERED: XYLOCAINE 1% 20 mL ONE (07:15)
[2018-05-28] MEDS ORDERED: ANTIBIOTIC OINT TP ONE (07:15)
[2018-05-28] MEDS ORDERED: MARCAINE 0.25% INFILTRATI ONE ×2 (07:15→07:40)
[2018-05-28] MEDS ORDERED: XYLOCAINE 1% 20 mL INFILTRATI ONE (07:40)
--- NOTE | 2018-05-28 08:06 | Anesthesia Day of Surgery ---
Anesthesia Day of Surgery - Day of Surgery Patient Examined: Yes Patient H&P Reviewed: Yes Patient is NPO: Yes
[2018-05-28] MEDS ORDERED: ATROPINE ONE (08:07)
[2018-05-28] MEDS ORDERED: ZOFRAN IV PRN ×2 (08:08→09:55)
--- NOTE | 2018-05-28 08:08 | Anesthesia Consultation ---
Anesthesia Consult and Med Hx Date of service: 05/28/18 - Airway Anesthetic Teeth Evaluation: Poor ROM Head & Neck: Adequate Mental/Hyoid Distance: Adequate Mallampati Class: Class III Intubation Access Assessment: Possibly Difficult - Pulmonary Exam CTA: Yes - Cardiac Exam Cardiac Exam: RRR - Pre-Operative Health Status ASA Pre-Surgery Classification: ASA3 Proposed Anesthetic Plan: General (ESRD, Morbid Obesity, Possible ERICK had not been tested, CAD, hx of OR, EF 50%), MAC - Cardiovascular System Hx Hypertension: Yes Hx Coronary Artery Disease: Yes Hx Heart Attack/AMI: Yes (2016) Hx Angina: Yes (2017) Hx Peripheral Vascular Disease: Yes - Central Nervous System Hx Psychiatric Problems: No - Endocrine Hx Renal Disease: Yes Hx End Stage Renal Disease: Yes Hx Non-Insulin Dependent Diabetes: Yes - Hematic Hx Anemia: Yes - Other Systems Hx Cancer: No
[2018-05-28] MEDS ORDERED: XYLOCAINE CARDIAC IV ONE (08:35)
[2018-05-28] MEDS ORDERED: ADRENALIN ONE ×2 (08:35→08:41)
[2018-05-28] MEDS ORDERED: ATROPINE 0.1% (CARDIAC) ONE (08:35)
[2018-05-28] MEDS ORDERED: PROAIR IH ONE (08:41)
[2018-05-28] MEDS ORDERED: NACL 0.9% 500 ML 500 ML ONE (08:46)
[2018-05-28] MEDS ORDERED: LEVOPHED IV ONE (08:59)
[2018-05-28] MEDS ORDERED: NACL 0.9% 250ML 250 ML ONE (09:00)
[2018-05-28] MEDS ORDERED: Vasostrict ONE ×2 (09:03→09:04)
[2018-05-28] MEDS ORDERED: SODIUM CHLORIDE FLUSH SYRINGE 10 ML IV PRN (09:18)
[2018-05-28] MEDS ORDERED: HEPARIN ONE (09:25)
[2018-05-28] MEDS ORDERED: FLUSH HEPARIN IV ONE (09:26)
--- NOTE | 2018-05-28 09:49 | History and Physical Report ---
History of Present Illness Chief complaint: sp Cardiac arrest History of present illness: 62-year-old woman who was in the or for podiatry procedure. She had intraoperative cardiac arrest. It was reported that she had bradycardia and PEA arrest. She received ACLS protocol with return of spontaneous circulation. She was intubated and admitted to the ICU. On arrival in the ICU the patient had asystole and required ACLS again, with return of circulation. At this time and the patient is nonresponsive, she's been maintained on 2 pressors. She is lacking reflexes, and is on the ventilator. Family is at the bedside. They stated that she was in her usual state of health before she came to the hospital for elective podiatry procedure. Past Medical History: anemia, diabetes, hypertension ,esrd, systolic chf Past Surgical History: (x2) Social history: lives with family, full code. denies: smoking, alcohol abuse, p rescription drug abuse, IV drug use Family history: CAD Medications and Allergies Allergies Allergy/AdvReac Type Severity Reaction Status Date / Time codeine Allergy Hives Verified 05/24/18 07:58 morphine Allergy confusion Verified 05/24/18 07:58 Penicillins Allergy Hives Verified 05/24/18 07:58 Home Medications Medication Instructions Recorded Confirmed Last Taken Type Metoprolol [Lopressor TAB] 50 mg PO BID #60 tablet 04/05/17 05/24/18 05/27/18 22:00 Rx Pravastatin [Pravachol] 20 mg PO QHS #30 tablet 04/05/17 05/24/18 05/27/18 22:00 Rx Bumetanide [Bumex 1 mg tab] 1 mg PO BID 04/30/17 05/24/18 05/27/18 22:00 History Pentoxifylline 400 mg PO TID 04/30/17 05/24/18 05/27/18 22:00 History Vit B Comp No.3/Folic/C/Biotin 1 each PO DAILY 04/30/17 05/24/18 05/27/18 22:00 History [Nephro-Chip Rx Tablet] hydrALAZINE [Apresoline TAB] 25 mg PO Q8HR #90 tablet 05/06/17 05/24/18 05/27/18 22:00 Rx Aspirin EC [Ecotrin] 325 mg PO QDAY 03/22/18 05/28/18 05/26/18 History Insulin NPH/Regular [Novolin 70/30] 10 unit SUB-Q HS 05/28/18 05/28/18 05/27/18 22:00 History Active Meds: Active Medications Heparin Sodium (Porcine) (Heparin) 5,000 unit SUB-Q Q8HR FELECIA Hydromorphone HCl (Dilaudid) 0.5 mg IV Q10MIN PRN PRN Reason: Pain , Severe (7-10) Stop: 05/28/18 20:00 Hydromorphone HCl (Dilaudid) 0.25 mg IV Q10MIN PRN PRN Reason: Pain, Moderate (4-6) Stop: 05/28/18 20:00 Vancomycin HCl (Vancomycin/Ns 1 Gm/250 Ml) 1 gm in 250 mls @ 167.007 mls/hr IV PREOP NR; Protocol Stop: 05/28/18 23:59 Last Admin: 05/28/18 07:05 Dose: 167.007 mls/hr Documented by: Sodium Chloride (Nacl 0.9% 1000 Ml) 1,000 mls @ 42 mls/hr IV DIRECT FELECIA Last Admin: 05/28/18 06:55 Dose: 42 mls/hr Documented by: Ondansetron HCl (Zofran) 4 mg IV ONCE PRN PRN Reason: Nausea And Vomiting Sodium Chloride (Sodium Chloride Flush Syringe 10 Ml) 10 ml IV BID FELECIA Sodium Chloride (Sodium Chloride Flush Syringe 10 Ml) 10 ml IV PRN PRN PRN Reason: LINE FLUSH Review of Systems ROS unobtainable: due to mental status Exam - Constitutional Vitals: Temp Pulse Resp BP Pulse Ox 98 F 67 16 167/55 96 05/28/18 06:15 05/28/18 06:15 05/28/18 06:15 05/28/18 06:15 05/28/18 06:15 General appearance: Present: other (agonal breathing) - EENT Eyes: Present: irregular pupil (fixed and dilated pupils) ENT: dentition normal - Neck Neck: Present: supple - Respiratory Respiratory effort: other (agonal breathing) Respiratory: bilateral: CTA (ventilated breath sounds) - Cardiovascular Heart Sounds: Present: S1 & S2. Absent: rub, click - Extremities Extremities: pulses symmetrical, No edema Peripheral Pulses: within normal limits - Abdominal General gastrointestinal: Present: soft, non-distended, normal bowel sounds Female genitourinary: Present: normal - Integumentary Integumentary: Present: clear, warm, dry - Musculoskeletal Musculoskeletal: other (no spontaneously movement of extremities) - Psychiatric Psychiatric: other (obtunded, non responsive) - Neurologic Neurologic: other (obtunded non responsive, fixed dilated pupils, agonal breathing, no spontaneous movement) Results - Labs CBC & Chem 7: 05/29/18 05:15 05/29/18 05:15 Labs: Laboratory Last Values POC Hgb 12.9 (12-17) 05/28/18 06:51 POC Hct 38 (38-51) 05/28/18 06:51 POC Sodium 132 mmol/L (138-146) L 05/28/18 06:51 POC Potassium 3.8 (3.5-4.9) 05/28/18 06:51 POC Chloride 98 (98-109) 05/28/18 06:51 POC BUN 64 mg/dl (8-26) H 05/28/18 06:51 POC Glucose 221 (70-105) H 05/28/18 06:51 Assessment and Plan Assessment and plan: 62 who coded when being prepared for podiatric procedure pmh includes systolic chf, esrd, dm, htn, pad cardiac arrest x2 cardiogenic shock Systolic CHF -cardiology consult, maintain on telemetry -sp cpr x2 with rosc now on 2 pressors Acute hypoxic resp failure on MV cont vent ESRD neph consult DM -SSI DVt ppx chemical CCT 60 minutes VTE prophylaxis?: Chemical Plan of care discussed with patient/family: Yes
[2018-05-28] MEDS ORDERED: D50W (25GM) Syringe IV PRN (09:54)
[2018-05-28] MEDS ORDERED: TYLENOL PO PRN (09:55)
[2018-05-28] MEDS ORDERED: ASPIRIN PR SCH (10:00)
[2018-05-28] MEDS ORDERED: NACL 0.9% 1000 ML 1,000 ML ONE (10:01)
--- NOTE | 2018-05-28 10:29 | Progress Note ---
Subjective Date of service: 05/28/18 Interval history: pt had intraoperative event in OR. Case started out as MAC. Pt did not tolerate anesthesia. very minimal drugs were given. HR initially dropped into 40's then 30's. Pt did not respond to epi , or atropine. Pt was intubated. Chest compressions started. One shock was delivered at 360J. Chest compressions resumed. pt started responding to pressors. Right IJ central line started by attending anesthesiologist under ultrasound. Pt will then be transferred to ICU intubated . Chest XRAY ordered for central line placement and intubation. pt was stable upon transfer not on any pressors. Objective - Constitutional Vitals: Vital Signs - 12hr 05/28/18 06:15 Temperature 98 F Pulse Rate 67 Respiratory 16 Rate Blood Pressure 167/55 O2 Sat by Pulse 96 Oximetry - Labs Labs: Abnormal lab results 05/28/18 05/28/18 Range/Units 06:48 06:51 POC Sodium 132 L (138-146) mmol/L POC BUN 64 H (8-26) mg/dl POC Glucose 216 H 221 H (70-105)
--- NOTE | 2018-05-28 10:37 | XRay Report ---
RIGHT CALCANEUS, ONE VIEW History: Right calcaneal spur. Findings: A single lateral fluoroscopic image of the right calcaneus was obtained during surgery by Dr. Ann. Please correlate with the procedural report. Calcaneus appears severely from previous trauma or infection. Osteotomy was performed per the operative notes. Please correlate with the procedural report as needed. Impression: Abnormal calcaneus.
[2018-05-28] MEDS: Vasostrict 20 UNIT in NACL 0.9% 100 ML IV SCH ×2 (10:50→22:05)
[2018-05-28] MEDS: LEVOPHED DRIP 4 MG/NS 250 ML 4 MG/250 ML BAG IV SCH (10:50)
--- NOTE | 2018-05-28 10:59 | Consultation ---
History of Present Illness - Reason for Consult Consult date: 05/28/18 end stage renal disease - History of Present Illness patient is a 62 year old female with ESRD on HD, was scheduled to have podiatric procedure when she coded, no other info available, she is currently intubated in the ICU. renal consult requested for HD management Past History Past Medical History: ESRD Medications and Allergies Allergies Allergy/AdvReac Type Severity Reaction Status Date / Time codeine Allergy Hives Verified 05/24/18 07:58 morphine Allergy confusion Verified 05/24/18 07:58 Penicillins Allergy Hives Verified 05/24/18 07:58 Home Medications Medication Instructions Recorded Confirmed Last Taken Type Metoprolol [Lopressor TAB] 50 mg PO BID #60 tablet 04/05/17 05/24/18 05/27/18 22:00 Rx Pravastatin [Pravachol] 20 mg PO QHS #30 tablet 04/05/17 05/24/18 05/27/18 22:00 Rx Bumetanide [Bumex 1 mg tab] 1 mg PO BID 04/30/17 05/24/18 05/27/18 22:00 History Pentoxifylline 400 mg PO TID 04/30/17 05/24/18 05/27/18 22:00 History Vit B Comp No.3/Folic/C/Biotin 1 each PO DAILY 04/30/17 05/24/18 05/27/18 22:00 History [Nephro-Chip Rx Tablet] hydrALAZINE [Apresoline TAB] 25 mg PO Q8HR #90 tablet 05/06/17 05/24/18 05/27/18 22:00 Rx Aspirin EC [Ecotrin] 325 mg PO QDAY 03/22/18 05/28/18 05/26/18 History Insulin NPH/Regular [Novolin 70/30] 10 unit SUB-Q HS 05/28/18 05/28/18 05/27/18 22:00 History Active Meds: Active Medications Acetaminophen (Tylenol) 650 mg PO Q4H PRN PRN Reason: Pain MILD(1-3)/Fever >100.5/MACK Aspirin (Aspirin) 300 mg [place] QDAY FELECIA Dextrose (D50w (25gm) Syringe) 50 ml IV PRN PRN PRN Reason: Hypoglycemia Heparin Sodium (Porcine) (Heparin) 5,000 unit SUB-Q Q8HR FELECIA Hydromorphone HCl (Dilaudid) 0.5 mg IV Q10MIN PRN PRN Reason: Pain , Severe (7-10) Stop: 05/28/18 20:00 Hydromorphone HCl (Dilaudid) 0.25 mg IV Q10MIN PRN PRN Reason: Pain, Moderate (4-6) Stop: 05/28/18 20:00 Vancomycin HCl (Vancomycin/Ns 1 Gm/250 Ml) 1 gm in 250 mls @ 167.007 mls/hr IV PREOP NR; Protocol Stop: 05/28/18 23:59 Last Admin: 05/28/18 07:05 Dose: 167.007 mls/hr Documented by: Sodium Chloride (Nacl 0.9% 1000 Ml) 1,000 mls @ 42 mls/hr IV DIRECT FELECIA Last Admin: 05/28/18 06:55 Dose: 42 mls/hr Documented by: Vasopressin 20 unit/ Sodium (Chloride) 101 mls @ 9.09 mls/hr IV TITR FELECIA; Protocol Insulin Human Regular (Humulin R) 0 units SUB-Q Q6HR FELECIA; Protocol Ondansetron HCl (Zofran) 4 mg IV ONCE PRN PRN Reason: Nausea And Vomiting Ondansetron HCl (Zofran) 4 mg IV Q8H PRN PRN Reason: Nausea And Vomiting Sodium Chloride (Sodium Chloride Flush Syringe 10 Ml) 10 ml IV BID FELECIA Sodium Chloride (Sodium Chloride Flush Syringe 10 Ml) 10 ml IV PRN PRN PRN Reason: LINE FLUSH Review of Systems ROS unobtainable: due to mental status Exam - Vital Signs Vital signs: Vital Signs Temp Pulse Resp BP Pulse Ox 98 F 67 16 167/55 96 05/28/18 06:15 05/28/18 06:15 05/28/18 06:15 05/28/18 06:15 05/28/18 06:15 - General Appearance General appearance: obese EENT: ATNC, PERRL Neck: Present: neck supple Respiratory: Decreased Breath Sounds Heart: tachycardia, S1S2 Gastrointestinal: Present: normoactive bowel sounds, obese. Absent: tenderness Integumentary: no rash, warm and dry Neurologic: other (intubated) Musculoskeletal: Present: other (trace pitting edema in BLE) Psychiatric: other (intubated) Assessment and Plan cardiac arrest s/p CPR hypoxic respiratory failure on the vent ESRD on HD - labs are pending, will assess the need for HD daily - cardiology consult pending - vent management per ICU team - strict I&O - daily weight
--- NOTE | 2018-05-28 11:27 | XRay Report ---
AP CHEST: HISTORY: Line placement The endotracheal tube and nasogastric tube are in good position. A right IJ venous catheter has been inserted which terminates in the right brachiocephalic vein. There is no evidence for pneumothorax. Mild cardiomegaly, mild pulmonary venous congestion and trace bilateral pleural effusions are suspected. IMPRESSION: Lines and tubes as described. Mild CHF.
--- NOTE | 2018-05-28 13:51 | Consultation ---
Addendum entered and electronically signed by NATHALIE RANDOLPH MD 05/28/18 14:24: 62-year-old woman with multiple medical problems. She has end-stage renal disea se on hemodialysis, severe peripheral vascular disease, and coronary artery disease. A year ago, she was referred for an outpatient cardiac catheterization for an abnormal thallium stress test. Cardiac catheterization was unsuccessful and aborted after multiple attempts at gaining arterial access. There are no peripheral pulses both femoral arteries, right radial artery, and right brachial artery. Arterial cannulation was therefore not available at any of these 4 sites. The left arm had an indwelling dialysis AV fistula. The patient presented to the hospital today, for outpatient foot surgery. During induction of anesthesia, there was hemodynamic collapse, with marked bradycardia and hypotension, requiring a brief ACLS resuscitation. There was no report of ventricular fibrillation or ventricular tachycardia. Currently, the patient is unresponsive, on the ventilator in the ICU. She remains in the normal sinus rhythm, with blood pressure 130s systolic. EKG prior to surgery was in sinus rhythm with nonspecific T-wave changes. Post resuscitation, there was a sinus rhythm with a right bundle branch block, but no acute ischemia or infarction. The right bundle branch block has also since resolved. Recommendations: Supportive management, continue dialysis as tolerated, medical therapy. The patient is not a candidate for aggressive cardiac evaluation and therapies as reported above. Overall, the medium, long-term prognosis are poor. Original Note: History of Present Illness Consult date: 05/28/18 Consult reason: cardiac arrest History of present illness: This is a 62 year old woman presented for outpatient podiatry surgery. Intraoperatively, Code Blue was called. It's reported patient had a heart rate in the low 20s. ACLS was initiated with return of spontaneous circulation. Patient was intubated and admitted to CCU. An ECG post arrest is sinus tachycardia, no acute ischemic changes. Cardiac consultation was requested. Patient has multiple medical problems including diabetes, hypertension, peripheral vascular disease, end stage renal disease and is on dialysis. In 2017, an echocardiogram reported left ventricular ejection fraction 45%. A persantine thallium stress test showed a small apical defect, and she was recommended for cardiac catheterization. An attempted catheterization procedure was aborted due to the inability to obtain arterial access due to poor arterial access. Medical therapy was recommended for underlying coronary artery disease. Past History Past Medical History: ESRD Medications and Allergies Allergies Allergy/AdvReac Type Severity Reaction Status Date / Time codeine Allergy Hives Verified 05/24/18 07:58 morphine Allergy confusion Verified 05/24/18 07:58 Penicillins Allergy Hives Verified 05/24/18 07:58 Home Medications Medication Instructions Recorded Confirmed Last Taken Type Metoprolol [Lopressor TAB] 50 mg PO BID #60 tablet 04/05/17 05/24/18 05/27/18 22:00 Rx Pravastatin [Pravachol] 20 mg PO QHS #30 tablet 04/05/17 05/24/18 05/27/18 22:00 Rx Bumetanide [Bumex 1 mg tab] 1 mg PO BID 04/30/17 05/24/18 05/27/18 22:00 History Pentoxifylline 400 mg PO TID 04/30/17 05/24/18 05/27/18 22:00 History Vit B Comp No.3/Folic/C/Biotin 1 each PO DAILY 04/30/17 05/24/18 05/27/18 22:00 History [Nephro-Chip Rx Tablet] hydrALAZINE [Apresoline TAB] 25 mg PO Q8HR #90 tablet 05/06/17 05/24/18 05/27/18 22:00 Rx Aspirin EC [Ecotrin] 325 mg PO QDAY 03/22/18 05/28/18 05/26/18 History Insulin NPH/Regular [Novolin 70/30] 10 unit SUB-Q HS 05/28/18 05/28/18 05/27/18 22:00 History Active Meds: Active Medications Acetaminophen (Tylenol) 650 mg PO Q4H PRN PRN Reason: Pain MILD(1-3)/Fever >100.5/MACK Aspirin (Aspirin) 300 mg [place] QDAY FELECIA Dextrose (D50w (25gm) Syringe) 50 ml IV PRN PRN PRN Reason: Hypoglycemia Heparin Sodium (Porcine) (Heparin) 5,000 unit SUB-Q Q8HR FELECIA Hydromorphone HCl (Dilaudid) 0.5 mg IV Q10MIN PRN PRN Reason: Pain , Severe (7-10) Stop: 05/28/18 20:00 Hydromorphone HCl (Dilaudid) 0.25 mg IV Q10MIN PRN PRN Reason: Pain, Moderate (4-6) Stop: 05/28/18 20:00 Vancomycin HCl (Vancomycin/Ns 1 Gm/250 Ml) 1 gm in 250 mls @ 167.007 mls/hr IV PREOP NR; Protocol Stop: 05/28/18 23:59 Last Admin: 05/28/18 07:05 Dose: 167.007 mls/hr Documented by: Sodium Chloride (Nacl 0.9% 1000 Ml) 1,000 mls @ 42 mls/hr IV DIRECT FELECIA Last Admin: 05/28/18 06:55 Dose: 42 mls/hr Documented by: Vasopressin 20 unit/ Sodium (Chloride) 101 mls @ 9.09 mls/hr IV TITR FELECIA; Protocol Insulin Human Regular (Humulin R) 0 units SUB-Q Q6HR FELECIA; Protocol Ondansetron HCl (Zofran) 4 mg IV ONCE PRN PRN Reason: Nausea And Vomiting Ondansetron HCl (Zofran) 4 mg IV Q8H PRN PRN Reason: Nausea And Vomiting Sodium Chloride (Sodium Chloride Flush Syringe 10 Ml) 10 ml IV BID FELECIA Sodium Chloride (Sodium Chloride Flush Syringe 10 Ml) 10 ml IV PRN PRN PRN Reason: LINE FLUSH Physical Examination Vital Signs Temp Pulse Resp BP Pulse Ox 98 F 67 16 167/55 96 05/28/18 06:15 05/28/18 06:15 05/28/18 06:15 05/28/18 06:15 05/28/18 06:15 Assessment and Plan Cardiac arrest intubated on the vent Peripheral vascular disease ESRD on dialysis Diabetes Hypertension Hyperlipidemia Coronary artery disease Cardiac tests in 2017: Echocardiogram reported left ventricular ejection fraction 45%. Persantine thallium stress test showed a small apical defect, and she was recommended for cardiac catheterization. An attempted catheterization procedure was aborted due to the inability to obtain arterial access due to poor arterial access. Medical therapy was recommended for underlying coronary artery disease.
[2018-05-28] MEDS: SODIUM CHLORIDE FLUSH SYRINGE 10 ML IV SCH ×2 (14:34→22:17)
[2018-05-28] MEDS: HumuLIN R SUB-Q SCH ×3 (14:36→23:58)
--- NOTE | 2018-05-28 14:38 | Event Note ---
Date: 05/28/18 Called , re patient that is to be admitted to the ICU and critical care consult is being requested. History based on discussions with Cardiology 62 year old woman presented for outpatient podiatry surgery. Intraoperatively, Johnson Tuttle was called. It's reported patient had bradycardia with PEA arrest. ACLS was initiated with return of spontaneous circulation. Patient was intubated and admitted to ICU. Intra-arterial line and central venous access was placed prior to arrival to ICU. On arrival to ICU was apparently in asystole and required resuscitation per ACLS guidelines. Patient has multiple medical problems including diabetes, hypertension, peripheral vascular disease, end stage renal disease and is on dialysis. In 2017, an echocardiogram reported left ventricular ejection fraction 45%. I have spoken with the RN and RT ABG was ordered. CXR were ordered. Vasopressor/iontropic support to keep MAP >65 Will see patient
[2018-05-28] MEDS ORDERED: SODIUM BICARBONATE IV ONE (14:44)
[2018-05-28 15:10] LABS: Hematocrit 39.8 % (30.3-42.9); Hemoglobin 12.8 gm/dl (10.1-14.3); Mean Corpuscular HGB Conc 32 % (30-34); Mean Corpuscular Volume 92 fl (79-97); Platelet Count 185 K/mm3 (140-440); Red Blood Count 4.34 M/mm3 (3.65-5.03); Red Cell Distribution Width 17.4 % (13.2-15.2)
[2018-05-28 15:38] LABS: Albumin 3.1 g/dL (3.9-5); Calcium 8.9 mg/dL (8.4-10.2)
[2018-05-28 15:50] LABS: Basophils % (Manual) 0 % (0.0-1.8); Eosinophils % (Manual) 0 % (0.0-4.3); Total Cells Counted 100
[2018-05-28 15:53] LABS: Anisocytosis 1+; Platelet Estimate Consistent w Auto
[2018-05-28] MEDS: HEPARIN SUB-Q SCH ×2 (16:04→22:12)
--- NOTE | 2018-05-28 16:14 | Consultation ---
REASON FOR CONSULTATION: Cardiac arrest. HISTORY OF PRESENT ILLNESS: This is a 62-year-old female with a history of diabetes, hypertension, cholesterol, fluctuating LV dysfunction; end-stage renal disease, hemodialysis, and TIA, was having an outpatient right foot debridement by Dr. Ann. The patient is in the OR room and had MAC and the patient became bradycardiac, unresponsive to epinephrine or atropine. The patient was intubated and was found to have lost pulse. CPR was initiated with 3 rounds of epinephrine and atropine and chest compressions. Baseline echo shows cardiac standstill continued. CPR regained pulse. The patient is intubated. The patient had emergent right common femoral arterial line placed in and now right subclavian venous line for IV access as the patient has a history of poor access. This patient's cardiac catheterization was not done secondary to poor access in 2017. The patient, I reviewed the chart, had a history non-STEMI. PAST MEDICAL HISTORY: History of coronary artery disease, history of non-STEMI in 2017, unable to cath; fluctuating LV function, end-stage renal disease, on hemodialysis; hypertension, diabetes, cholesterol, and history of TIA. PAST SURGICAL HISTORY: Right AV graft. no ros secondary to mental status MEDICATIONS: Aspirin 325, Bumex 1, Glipizide 10, Metoprolol 50 twice a day, Nephro-Chip, nitroglycerin patch, NovoLog 70/30, olmesartan 20, Pentoxifylline ER 400, pravastatin 40, sodium bicarbonate and vancomycin given foot inspection during dialysis. PREVIOUS DIAGNOSTIC TESTS: Echocardiogram done 03/19/2017; EF 40-45%. On 10/2017, EF normal with mild AR and MR. No effusion. Stress test shows an anterior septal infarct and inferoapical ischemia, EF 36%. The patient is being treated medically. ALLERGIES: CODEINE, MORPHINE, PENICILLIN. SOCIAL HISTORY: Unobtainable. PHYSICAL EXAMINATION: VITAL SIGNS: Heart rate is 74, blood pressure 135/57, respirations 16, temperature 98. HEENT: Pupils are fixed. LUNGS: Bilateral air entry. No wheeze, no rales. CARDIOVASCULAR: S1, S2. No murmurs, rubs, gallops. ABDOMEN: Soft. EXTREMITIES: Decreased pulses. 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 LABORATORY DATA: Pending. EKG is new right bundle branch block. SUMMARY: 1. Status post cardiac arrest, post-anesthesia. 2. Possible cardiac involvement and repeat echocardiogram at baseline shows no wall motion abnormalities, post-arrest has septal and anterior wall motion abnl. 3. End-stage renal disease, hemodialysis; hypertension, diabetes, cholesterol. Recommend pressure support and ICU management. Discussed this in detail with the patient's primary doctor and the patient will be followed by the primary brake repairer hydraulic. 4. spoke with pt son about event JOB# [id number] WINDY/CHIDI GONSALVES
--- NOTE | 2018-05-28 17:44 | Consultation ---
History of Present Illness Consult date: 05/28/18 Requesting physician: FATOU MADISON Reason for consult: other (Cardiac arrest) History of present illness: 62 year old woman presented for outpatient podiatry surgery, A. During the administration of anesthesia, prior to when the procedure was started, she was noted to have bradycardia and proceeded to have a PEA arrest. Code Blue was called. ACLS was initiated with return of spontaneous circulation. Patient was intubated and admitted to ICU. Patient has multiple medical problems including diabetes, hypertension, peripheral vascular disease, end stage renal disease and is on dialysis. In 2017, an echocardiogram reported left ventricular ejection fraction 45%. I have been consulted fro critical care management. Patient was seen and examined. Vitals,, labs, medications, cahrt and imaging were reviewed. Consulted respiratory and nursing staff She is currently orally intubated, ETT at 21cm at the lip. She is on vasopressin infusion and norepinephrine. She has a right femoral intra-arterial lines, RIJ CVC. Her son and daughter are at the bedside. They report that she had dialysis on Sunday. She has been at her baseline, but had had a cough for several months. Past History Past Medical History: acute SD (2 years ago, no stents), CAD, ESRD, hypertens ion, hyperlipidemia, PVD Past Surgical History: (x2) Social history: lives with family, smoking (life long non-smoker), alcohol abuse (no ), prescription drug abuse (no), AND/DNR-allow natural Medications and Allergies Allergies Allergy/AdvReac Type Severity Reaction Status Date / Time codeine Allergy Hives Verified 05/24/18 07:58 morphine Allergy confusion Verified 05/24/18 07:58 Penicillins Allergy Hives Verified 05/24/18 07:58 Home Medications Medication Instructions Recorded Confirmed Last Taken Type Metoprolol [Lopressor TAB] 50 mg PO BID #60 tablet 04/05/17 05/24/18 05/27/18 22:00 Rx Pravastatin [Pravachol] 20 mg PO QHS #30 tablet 04/05/17 05/24/18 05/27/18 22:00 Rx Bumetanide [Bumex 1 mg tab] 1 mg PO BID 04/30/17 05/24/18 05/27/18 22:00 History Pentoxifylline 400 mg PO TID 04/30/17 05/24/18 05/27/18 22:00 History Vit B Comp No.3/Folic/C/Biotin 1 each PO DAILY 04/30/17 05/24/18 05/27/18 22:00 History [Nephro-Chip Rx Tablet] hydrALAZINE [Apresoline TAB] 25 mg PO Q8HR #90 tablet 05/06/17 05/24/18 05/27/18 22:00 Rx Aspirin EC [Ecotrin] 325 mg PO QDAY 03/22/18 05/28/18 05/26/18 History Insulin NPH/Regular [Novolin 70/30] 10 unit SUB-Q HS 05/28/18 05/28/18 05/27/18 22:00 History Active Meds: Active Medications Acetaminophen (Tylenol) 650 mg PO Q4H PRN PRN Reason: Pain MILD(1-3)/Fever >100.5/MACK Aspirin (Aspirin) 300 mg NV QDAY [facility] Last Admin: 05/28/18 14:33 Dose: Not Given Documented by: Dextrose (D50w (25gm) Syringe) 50 ml IV PRN PRN PRN Reason: Hypoglycemia Heparin Sodium (Porcine) (Heparin) 5,000 unit SUB-Q Q8HR [facility] Last Admin: 05/28/18 16:04 Dose: 5,000 unit Documented by: Hydromorphone HCl (Dilaudid) 0.5 mg IV Q10MIN PRN PRN Reason: Pain , Severe (7-10) Stop: 05/28/18 20:00 Hydromorphone HCl (Dilaudid) 0.25 mg IV Q10MIN PRN PRN Reason: Pain, Moderate (4-6) Stop: 05/28/18 20:00 Vancomycin HCl (Vancomycin/Ns 1 Gm/250 Ml) 1 gm in 250 mls @ 167.007 mls/hr IV PREOP NR; Protocol Stop: 05/28/18 23:59 Last Admin: 05/28/18 07:05 Dose: 167.007 mls/hr Documented by: Sodium Chloride (Nacl 0.9% 1000 Ml) 1,000 mls @ 42 mls/hr IV DIRECT FELECIA Last Admin: 05/28/18 06:55 Dose: 42 mls/hr Documented by: Vasopressin 20 unit/ Sodium (Chloride) 101 mls @ 9.09 mls/hr IV TITR FELECIA; Protocol Last Admin: 05/28/18 10:50 Dose: 0.03 units/min, 9.09 mls/hr Documented by: Norepinephrine (Levophed Drip 4 Mg/Ns 250 Ml) 4 mg in 250 mls @ 7.5 mls/hr IV TITR FELECIA; Protocol Insulin Human Regular (Humulin R) 0 units SUB-Q Q6HR FELECIA; Protocol Last Admin: 05/28/18 14:36 Dose: Not Given Documented by: Ondansetron HCl (Zofran) 4 mg IV ONCE PRN PRN Reason: Nausea And Vomiting Ondansetron HCl (Zofran) 4 mg IV Q8H PRN PRN Reason: Nausea And Vomiting Sodium Chloride (Sodium Chloride Flush Syringe 10 Ml) 10 ml IV BID [facility] Last Admin: 05/28/18 14:34 Dose: Not Given Documented by: Sodium Chloride (Sodium Chloride Flush Syringe 10 Ml) 10 ml IV PRN PRN PRN Reason: LINE FLUSH Review of Systems ROS unobtainable: due to endotracheal tube, due to mental status Physical Examination Vital signs: Vital Signs Temp Pulse Resp BP Pulse Ox 98 F 67 16 167/55 96 05/28/18 06:15 05/28/18 06:15 05/28/18 06:15 05/28/18 06:15 05/28/18 06:15 General appearance: other (Unresponsive, morbidly obese, atraumatic, nor mocephalic) Eyes: non-icteric, other (Fixed dilated pupils, no pupillary light reaction) ENT: oropharynx moist, other (ETT at 21cm, ) Neck: supple, no lymphadenopathy, other (short) Effort: other (RR at set ventilator rate, no dys-synchrony) Ascultation: Bilateral: diminished breath sounds, rhonchi Cardiovascular: regular rate and rhythm, other (S1,S2, no murmurs, gallops or rubs) Gastrointestinal: normoactive bowel sounds, soft, non-tender, non-distended Integumentary: normal Extremities: no cyanosis, no edema, other (minimal thrill over AV graft) unable to assess other (unable to assess) Results - Laboratory Findings CBC and BMP: 05/28/18 14:57 05/28/18 14:57 ABG POC ABG pH 7.175 (7.35-7.45) L 05/28/18 11:02 POC ABG pCO2 43.9 (35-45) 05/28/18 11:02 POC ABG pO2 292 (80-105) H 05/28/18 11:02 POC ABG HCO3 16.2 05/28/18 11:02 POC ABG Total CO2 18 05/28/18 11:02 POC ABG O2 Sat 100 05/28/18 11:02 Abnormal lab findings: Abnormal Labs 05/28/18 05/28/18 05/28/18 06:48 06:51 10:38 WBC RDW Seg Neuts % (Manual) Lymphocytes % (Manual) Nucleated RBC % Seg Neutrophils # Man Lymphocytes # (Manual) POC ABG pH POC ABG pO2 POC Sodium 132 L Sodium Chloride Carbon Dioxide POC BUN 64 H BUN Creatinine Glucose POC Glucose 216 H 221 H 263 H AST ALT Alkaline Phosphatase Total Protein Albumin 05/28/18 05/28/18 05/28/18 11:02 14:57 14:57 WBC 15.1 H RDW 17.4 H Seg Neuts % (Manual) 94.0 H Lymphocytes % (Manual) 4.0 L Nucleated RBC % 1.0 H Seg Neutrophils # Man 14.2 H Lymphocytes # (Manual) 0.6 L POC ABG pH 7.175 L POC ABG pO2 292 H POC Sodium Sodium 136 L Chloride 90.4 L Carbon Dioxide 13 L POC BUN BUN 78 H Creatinine 7.6 H Glucose 274 H POC Glucose AST 444 H ALT 232 H Alkaline Phosphatase 174 H Total Protein 6.1 L Albumin 3.1 L - Diagnostic Findings Chest x-ray: image reviewed (ETT in position, RIJ CVC, Bilateral alveolar infiltrates) Assessment and Plan Cardiopulmonary arrest x3 with ROSC Acute hypoxemic respiratory failure on MVS Metabolic acidosis Leukocytosis ESRD on HD CAD s/p 2 MIs Morbid obesity Hypertension, now hypotensive Diabetes mellitus -Continue ICU admission -VAP bundle addressed -Lung protective strategies -Serial ABGs -Adjust minute ventilation for better gas, exchange -Wean supplemental oxygen for O2 sats>90% -Wean vasopresor support for MAP>65 -Monitor neurologic function, no sedation at this time -Aspiration precautions -Assessed for TTM, currently hypothermic, do not warm her up. Monitor temperature curve -Address nutrition within the next 72 hours -Get CBC, CMP now -Supportive HD as indicated -2D echocardiogram, cardiology following -Accucheck with glycemic control, goal blood glucose of 140-180mg/dL -Avoid hypoglycemia -Currently on empiric antibiotics, get cultures and re-evaluate need for antibiotics in the next 24 hours Discussed extensively with RN/RT Discussed with he daughter and the son at the bedside----the patient has fixed dilated pupils, n gag or cough reflexes. Prognosis is poor. The chances of any meaningful recovery is poor. However we will have to wait for the next 24-48 hours to re-evaluate neurologic function. In the interim she is to be aggressively treated and managed. They have both had discussions that she is to be DNAR in the event of another cardiac arrest. All their questions were answered at the bedside Discussed with primary service FULL CODE CONDITION: CRITICAL PROGNOSIS: GUARDED The high probability of a clinically significant, sudden or life-threatening deterioration of the [respiratory, cardiovascular, renal] system(s) required my full and direct attention, intervention and personal management. The aggregate critical care time was [75] minutes without overlap. Time includes spent on; [x] Data Review and interpretation [x] Patient assessment and monitoring of vital signs [x] Documentation [x] Medication orders and management
--- NOTE | 2018-05-28 19:21 | Post Anesthesia Evaluation ---
- Post Anesthesia Evaluation Stable Respiratory Function: Yes Nausea/Vomiting: No Temp > 96.8F: Yes Anesthesia Complications: Yes (pt intubated. Did not tolerate MAC anesthesia, caitlin in 40's) Patient on Ventilator: Yes
--- NOTE | 2018-05-28 20:35 | Event Note ---
DNR NOTE discussed case with family -the patient has fixed dilated pupils with agonal breathing no spontaneous movement, no purposeful movement, -explained that given that she has prolonged CPR x2, that she likely has severe anoxic brain injury, which is not likely to be reversible -per family, they would like to continue aggressive management with ventilator, pressors, and any medications she may need -they do not Want CPR and have elected to make her DNR
[2018-05-28] MEDS ORDERED: PROTONIX IV SCH (22:00)
[2018-05-29] MEDS: LEVOPHED DRIP 4 MG/NS 250 ML 4 MG/250 ML BAG IV SCH (04:45)
[2018-05-29] MEDS: HEPARIN SUB-Q SCH (05:31)
[2018-05-29] MEDS: HumuLIN R SUB-Q SCH (05:43)
[2018-05-29 06:26] VITALS: BP 109/36
[2018-05-29 06:34] LABS: Basophils % (Auto) 0.1 % (0.0-1.8); Hematocrit 38.5 % (30.3-42.9); Hemoglobin 12.5 gm/dl (10.1-14.3); Lymphocytes # (Auto) 0.8 K/mm3 (1.2-5.4); Lymphocytes % (Auto) 10.1 % (13.4-35.0); Mean Corpuscular HGB Conc 32 % (30-34); Mean Corpuscular Volume 92 fl (79-97); Monocytes # (Auto) 0.7 K/mm3 (0.0-0.8); Monocytes % (Auto) 8.6 % (0.0-7.3); Platelet Count 102 K/mm3 (140-440); Red Cell Distribution Width 17.5 % (13.2-15.2)
[2018-05-29 06:50] LABS: Calcium 8.1 mg/dL (8.4-10.2)
--- NOTE | 2018-05-29 10:35 | Event Note ---
Date: 05/29/18 Called and notified by Nursing staff of patients asytole state and cessation of spontaneous breathing. On arrival patient still on ventilator. Family at bedside, Patient examined by me, No response to verbal or noxious stimuli, no spontaneous breathing noted in-between vent breaths. No heart sounds noted on Auscultation. Pupil fixed and dilated. Pronounced at 10:25AM. Condolence offered to family. Nursing staff advised.
--- NOTE | 2018-05-29 10:51 | Event Note ---
Date: 05/29/18 Patient . Extubate
--- NOTE | 2018-05-29 16:10 | Death Summary ---
Summary - Providers Consults: 05/28/18 09:21 Consult to Physician [CONS] Routine Comment: Consulting Provider: BILLY DHALIWAL Physician Instructions: Reason For Exam: cardiac arrest 05/28/18 09:22 Consult to Physician [CONS] Routine Comment: Consulting Provider: NATHALIE RANDOLPH Physician Instructions: Reason For Exam: cardiac arrest 05/28/18 09:23 Consult to Physician [CONS] Routine Comment: Consulting Provider: LUCIA MCPHERSON Physician Instructions: Reason For Exam: esrd 05/28/18 21:34 Consult to Wound/ET Nurse [CONS] Routine Reason For Exam: wound eval and dressing changes to rt foot Attending: FATOU MADISON MD - summary Date of admission: 05/28/18 09:18 Date of : 05/29/18 Significant findings: Past Medical History: anemia, diabetes, hypertension ,esrd, systolic chf 62-year-old woman who was in the or for podiatry procedure. She had intraoperative cardiac arrest. It was reported that she had bradycardia and PEA arrest. She received ACLS protocol with return of spontaneous circulation. She was intubated and admitted to the ICU. On arrival in the ICU the patient had asystole and required ACLS again, with return of circulation. * She was nonresponsive, was being maintained on 2 pressors and ventilator, had fixed and dilated pupils, and having agonal breathing * The very poor prognosis was related to her family. And they decided to make her DO NOT RESUSCITATE. * Unfortunately , despite aggressive management, the patient the following day Diagnosis Cardiac arrest cardiogenic shock sysoclic CHF DM HTN Anemia ESRD anoxic brain injury acute metabolic encephalopathy
--- NOTE | 2018-05-30 11:31 | Progress Note ---
Assessment and Plan Assessment and plan: 62 who coded when being prepared for podiatric procedure pmh includes systolic chf, esrd, dm, htn, pad cardiac arrest x2 cardiogenic shock Systolic CHF -cardiology consult, maintain on telemetry -sp cpr x2 with rosc now on 2 pressors Acute hypoxic resp failure on MV cont vent ESRD neph consult DM -SSI DVt ppx chemical fever; likely central in origin, obtain BC CCT 60 minutes Code status; DNR History Interval history: spiking high fevers remains obtunded and unresponsive no seizure, no vomiting, no agitation, no diarrhea Hospitalist Physical - Physical exam Narrative exam: General appearance: Present: other (agonal breathing) - EENT Eyes: Present: irregular pupil (fixed and dilated pupils) ENT: dentition normal - Neck Neck: Present: supple - Respiratory Respiratory effort: other (agonal breathing) Respiratory: bilateral: CTA (ventilated breath sounds) - Cardiovascular Heart Sounds: Present: S1 & S2. Absent: rub, click - Extremities Extremities: pulses symmetrical, No edema Peripheral Pulses: within normal limits - Abdominal General gastrointestinal: Present: soft, non-distended, normal bowel sounds Female genitourinary: Present: normal - Integumentary Integumentary: Present: clear, warm, dry - Musculoskeletal Musculoskeletal: other (no spontaneously movement of extremities) - Psychiatric Psychiatric: other (obtunded, non responsive) - Neurologic Neurologic: other (obtunded non responsive, fixed dilated pupils, agonal breathing, no spontaneous movement) - Constitutional Vitals: Temp Pulse Resp BP Pulse Ox 107.7 F H 117 H 27 H 109/36 96 05/29/18 07:58 05/29/18 06:21 05/29/18 06:21 05/29/18 06:21 05/29/18 06:21 Results - Labs CBC & Chem 7: 05/29/18 05:15 05/29/18 05:15 Labs: Laboratory Last Values WBC 8.4 K/mm3 (4.5-11.0) 05/29/18 05:15 RBC 4.20 M/mm3 (3.65-5.03) 05/29/18 05:15 Hgb 12.5 gm/dl (10.1-14.3) 05/29/18 05:15 POC Hgb 12.9 (12-17) 05/28/18 06:51 Hct 38.5 % (30.3-42.9) 05/29/18 05:15 POC Hct 38 (38-51) 05/28/18 06:51 MCV 92 fl (79-97) 05/29/18 05:15 MCH 30 pg (28-32) 05/29/18 05:15 MCHC 32 % (30-34) 05/29/18 05:15 RDW 17.5 % (13.2-15.2) H 05/29/18 05:15 Plt Count 102 K/mm3 (140-440) L 05/29/18 05:15 Lymph % (Auto) 10.1 % (13.4-35.0) L 05/29/18 05:15 [place] % (Auto) 8.6 % (0.0-7.3) H 05/29/18 05:15 Eos % (Auto) 0.0 % (0.0-4.3) 05/29/18 05:15 Baso % (Auto) 0.1 % (0.0-1.8) 05/29/18 05:15 Lymph # 0.8 K/mm3 (1.2-5.4) L 05/29/18 05:15 [place] # 0.7 K/mm3 (0.0-0.8) 05/29/18 05:15 Eos # 0.0 K/mm3 (0.0-0.4) 05/29/18 05:15 Baso # 0.0 K/mm3 (0.0-0.1) 05/29/18 05:15 Add Manual Diff Complete 05/28/18 14:57 Total Counted 100 05/28/18 14:57 Seg Neutrophils % 81.2 % (40.0-70.0) H 05/29/18 05:15 Seg Neuts % (Manual) 94.0 % (40.0-70.0) H 05/28/18 14:57 Band Neutrophils % 0 % 05/28/18 14:57 Lymphocytes % (Manual) 4.0 % (13.4-35.0) L 05/28/18 14:57 Reactive Lymphs % (Man) 0 % 05/28/18 14:57 Monocytes % (Manual) 2.0 % (0.0-7.3) 05/28/18 14:57 Eosinophils % (Manual) 0 % (0.0-4.3) 05/28/18 14:57 Basophils % (Manual) 0 % (0.0-1.8) 05/28/18 14:57 Metamyelocytes % 0 % 05/28/18 14:57 Myelocytes % 0 % 05/28/18 14:57 Promyelocytes % 0 % 05/28/18 14:57 Blast Cells % 0 % 05/28/18 14:57 Nucleated RBC % 1.0 % (0.0-0.9) H 05/28/18 14:57 Seg Neutrophils # 6.8 K/mm3 (1.8-7.7) 05/29/18 05:15 Seg Neutrophils # Man 14.2 K/mm3 (1.8-7.7) H 05/28/18 14:57 Band Neutrophils # 0.0 K/mm3 05/28/18 14:57 Lymphocytes # (Manual) 0.6 K/mm3 (1.2-5.4) L 05/28/18 14:57 Abs React Lymphs (Man) 0.0 K/mm3 05/28/18 14:57 Monocytes # (Manual) 0.3 K/mm3 (0.0-0.8) 05/28/18 14:57 Eosinophils # (Manual) 0.0 K/mm3 (0.0-0.4) 05/28/18 14:57 Basophils # (Manual) 0.0 K/mm3 (0.0-0.1) 05/28/18 14:57 Metamyelocytes # 0.0 K/mm3 05/28/18 14:57 Myelocytes # 0.0 K/mm3 05/28/18 14:57 Promyelocytes # 0.0 K/mm3 05/28/18 14:57 Blast Cells # 0.0 K/mm3 05/28/18 14:57 WBC Morphology Not Reportable 05/28/18 14:57 Hypersegmented Neuts Not Reportable 05/28/18 14:57 Hyposegmented Neuts Not Reportable 05/28/18 14:57 Hypogranular Neuts Not Reportable 05/28/18 14:57 Smudge Cells Not Reportable 05/28/18 14:57 Toxic Granulation Not Reportable 05/28/18 14:57 Toxic Vacuolation Not Reportable 05/28/18 14:57 Dohle Bodies Not Reportable 05/28/18 14:57 Pelger-Huet Anomaly Not Reportable 05/28/18 14:57 Margot Rods Not Reportable 05/28/18 14:57 Platelet Estimate Consistent w auto 05/28/18 14:57 Clumped Platelets Not Reportable 05/28/18 14:57 Plt Clumps, EDTA Not Reportable 05/28/18 14:57 Large Platelets Not Reportable 05/28/18 14:57 Giant Platelets Not Reportable 05/28/18 14:57 Platelet Satelliting Not Reportable 05/28/18 14:57 Plt Morphology Comment Not Reportable 05/28/18 14:57 RBC Morphology Not Reportable 05/28/18 14:57 Dimorphic RBCs Not Reportable 05/28/18 14:57 Polychromasia Few 05/28/18 14:57 Hypochromasia Not Reportable 05/28/18 14:57 Poikilocytosis Not Reportable 05/28/18 14:57 Anisocytosis 1+ 05/28/18 14:57 Microcytosis Not Reportable 05/28/18 14:57 Macrocytosis Not Reportable 05/28/18 14:57 Spherocytes Not Reportable 05/28/18 14:57 Pappenheimer Bodies Not Reportable 05/28/18 14:57 Sickle Cells Not Reportable 05/28/18 14:57 Target Cells Not Reportable 05/28/18 14:57 Tear Drop Cells Not Reportable 05/28/18 14:57 Ovalocytes Not Reportable 05/28/18 14:57 Helmet Cells Not Reportable 05/28/18 14:57 [place]-K[place]bourne Bodies Not Reportable 05/28/18 14:57 [place] Rings Not Reportable 05/28/18 14:57 Jose Cells Not Reportable 05/28/18 14:57 Bite Cells Not Reportable 05/28/18 14:57 Crenated Cell Not Reportable 05/28/18 14:57 Elliptocytes Few 05/28/18 14:57 Acanthocytes (Spur) Not Reportable 05/28/18 14:57 Rouleaux Not Reportable 05/28/18 14:57 Hemoglobin C Crystals Not Reportable 05/28/18 14:57 Schistocytes Not Reportable 05/28/18 14:57 Malaria parasites Not Reportable 05/28/18 14:57 Roberto Bodies Not Reportable 05/28/18 14:57 Hem Pathologist Commnt No 05/28/18 14:57 POC ABG pH 7.522 (7.35-7.45) H 05/29/18 05:19 POC ABG pCO2 18.6 (35-45) L 05/29/18 05:19 POC ABG pO2 201 (80-105) H 05/29/18 05:19 POC ABG HCO3 15.3 05/29/18 05:19 POC ABG Total CO2 16 05/29/18 05:19 POC ABG O2 Sat 100 05/29/18 05:19 POC ABG Base Excess -8 05/29/18 05:19 POC Sodium 132 mmol/L (138-146) L 05/28/18 06:51 POC Potassium 3.8 (3.5-4.9) 05/28/18 06:51 POC Chloride 98 (98-109) 05/28/18 06:51 FiO2 80 % 05/29/18 05:19 Sodium 135 mmol/L (137-145) L 05/29/18 05:15 Potassium 4.2 mmol/L (3.6-5.0) 05/29/18 05:15 Chloride 94.9 mmol/L (98-107) L 05/29/18 05:15 Carbon Dioxide 15 mmol/L (22-30) L 05/29/18 05:15 Anion Gap 29 mmol/L 05/29/18 05:15 POC BUN 64 mg/dl (8-26) H 05/28/18 06:51 BUN 92 mg/dL (7-17) H 05/29/18 05:15 Creatinine 7.7 mg/dL (0.7-1.2) H 05/29/18 05:15 Estimated GFR 5 ml/min 05/29/18 05:15 BUN/Creatinine Ratio 12 % 05/29/18 05:15 Glucose 264 mg/dL (65-100) H 05/29/18 05:15 POC Glucose 266 (70-105) H 05/29/18 05:43 Hemoglobin A1c 8.1 % (4-6) H 05/29/18 Unknown Calcium 8.1 mg/dL (8.4-10.2) L 05/29/18 05:15 Phosphorus 2.00 mg/dL (2.5-4.5) L 05/29/18 05:15 Total Bilirubin 0.40 mg/dL (0.1-1.2) 05/28/18 14:57 AST 444 units/L (5-40) H 05/28/18 14:57 ALT 232 units/L (7-56) H 05/28/18 14:57 Alkaline Phosphatase 174 units/L (35-129) H 05/28/18 14:57 Total Protein 6.1 g/dL (6.3-8.2) L 05/28/18 14:57 Albumin 3.1 g/dL (3.9-5) L 05/28/18 14:57 Albumin/Globulin Ratio 1.0 % 05/28/18 14:57 Nutrition/Malnutrition Assess - Dietary Evaluation Nutrition/Malnutrition Findings: Nutrition Notes Start: 05/29/18 11:38 Freq: Status: Discharge Protocol: Document 05/29/18 11:39 ROSEY (Rec: 05/29/18 12:10 ROSEY [email or web address]) Co-Sign 05/29/18 11:39 OL Nutrition Notes Need for Assessment generated from: program evaluator Initial or Follow up Brief Note Subjective/Other Information Pt screened for skin risk. Pt . Nutrition Intervention Revisit per MD consult or patient Sign Off request:
--- NOTE | 2018-09-25 08:02 | Operative Report ---
PREOPERATIVE DIAGNOSES: Chronic open wound, osteomyelitis, right heel. POSTOPERATIVE DIAGNOSES: Chronic open wound, osteomyelitis, right heel. SURGICAL PROCEDURE: Exostosis, removal of bone spur, right heel. ESTIMATED BLOOD LOSS: Zero to minimum. ANESTHESIA: Local with IV sedation. TOURNIQUET: Applied, but not used. PROCEDURE IN DETAIL: The patient was brought into the operating room, placed on the operating table in the supine position around 7:30 a.m. and a well-padded pneumatic ankle tourniquet was placed 2-3 cm proximal to both the medial and lateral malleoli but was not used, it was only in place and inflated only if excessive blood loss. After adequate IV sedation and clearance from anesthesia, 3 mL of a 10 mL syringe, 1% lidocaine plain plus 0.25% bupivacaine plain was infiltrated into the affected site. It was to be noted, area was cleansed with alcohol thoroughly for 15-20 seconds prior to injection. It was to be noted, during the injection, was told not to proceed with administering local anesthesia from anesthesia(Mayito DOYLE). At this time, we waited for clearance from anesthesia to give the remaining injection; however, waited for like 5-10 minutes while anesthesia reviewed monitors. At that time, I asked,"was everything okay and I was assured at that time everything was fine.Nevertheless,at this time, anesthesia called superior, Dr. Baumann to the bedside via one of the nurses in the OR. At this time, Tracey, the circulating nurse in the OR;was asked by Dr. Ann to call Dr. Hernandez to the OR.Moreover, I asked both Adan (Photography Manager) and Mayito DOYLE should we call anyone else to the OR. Mayito said that "Dr. Baumann was the head of the anesthesia team and had things under control. At this time, clearance was not given to continue with injection. Therefore, asked nurse, JESSICA Webb to seek Dr. Ortega's help in the OR for a second time. Tracey left the OR to retrieve Dr. Ortega and she arrived in the OR and both Dr. Ortega, Dr. Phillip/ anesthesia, and Mayito was working with the patient. At this time, other OR staff came to the room, probably about [address] minutes later and eventually [address] Valera(Cardiologists) came to the OR to assist the patient. At this particular time, a full blown Code and resuscitation was starting to take place and eventually a central line was placed in by Dr. Baumann. The patient was eventually transferred to ICU for other additional information. Please see anesthesia notes, was unaware of what medications were administered. JOB# [id number] TLD/NTS BAUDILIOD
== END 2018-05-29 10:25 | DRG 208 ==
LOC: SUATTDRO 05:51 → OR 05:51 → CC1 09:18
PROVIDERS: ADMIT Internal Medicine; ATTEND Internal Medicine
PROC: 5A1945Z Respiratory Ventilation, 24-96 Consecutive Hours (ICD-10-PCS; principal; 2018-05-28)
PROC: 0BH17EZ Insertion of Endotracheal Airway into Trachea, Via Natural or Artificial Opening (ICD-10-PCS; 2018-05-28)
PROC: 4A033R1 Measurement of Arterial Saturation, Peripheral, Percutaneous Approach (ICD-10-PCS; 2018-05-28)
PROC: 5A12012 Performance of Cardiac Output, Single, Manual (ICD-10-PCS; 2018-05-28)
PROC: 05HY33Z Insertion of Infusion Device into Upper Vein, Percutaneous Approach (ICD-10-PCS; 2018-05-28)
DX: J96.01 Acute respiratory failure with hypoxia (principal); N18.6 End stage renal disease; G93.41 Metabolic encephalopathy; Z68.41 Body mass index [BMI] 40.0-44.9, adult; I13.2 Hypertensive heart and chronic kidney disease with heart failure and with stage 5 chronic kidney disease, or end stage renal disease; I50.20 Unspecified systolic (congestive) heart failure; I46.9 Cardiac arrest, cause unspecified; E66.01 Morbid (severe) obesity due to excess calories; I25.10 Atherosclerotic heart disease of native coronary artery without angina pectoris; E11.22 Type 2 diabetes mellitus with diabetic chronic kidney disease; E11.51 Type 2 diabetes mellitus with diabetic peripheral angiopathy without gangrene; E78.5 Hyperlipidemia, unspecified; D72.829 Elevated white blood cell count, unspecified; I25.2 Old myocardial infarction; Z82.49 Family history of ischemic heart disease and other diseases of the circulatory system; Z88.5 Allergy status to narcotic agent; Z88.0 Allergy status to penicillin; Z79.899 Other long term (current) drug therapy
CPT/HCPCS: 36415; 71045; 80048; 80053; 82803; 82962; 83036; 84100; 85007; 85025; 92950; 93005; 93010; 93308; 93321; 93325; 94003; G0378; C9113; J0171; J0461; J1170; J1642; J1644; J1815; J2001; J2250; J2704; J3370; J7030; J7040; J7050